=== PATIENT | male | born 1960 ===

== ENCOUNTER 2020-09-01 02:31 | Emergency (ER) | payer MEDICARE, MEDICAID, SELFPAY ==
[2020-09-01 02:45] VITALS: BP 145/79; PULSE 76; RESP 18; TEMP 37; O2SAT 96; BMI 21.8
--- NOTE | 2020-09-01 03:58 | PC.NURSE ---
PT OOB AND PACING IN ROOM. PT AWAITING FOR COVID RESULTS. PT TOLD SEVERAL TIMES TO KEEP HIS MASK ON. WILL CONTNUE TO MONITOR PT.
--- NOTE | 2020-09-01 07:54 | ED.GENADULT ---
HPI - General Adult General Chief complaint: Upper Respiratory Symptoms Stated complaint: dry thoat Time Seen by Provider: 09/01/20 03:14 Source: patient Mode of arrival: ambulatory Limitations: no limitations History of Present Illness HPI narrative: 60-year-old male who presents to the emergency department for evaluation a sore, dry throat. Patient states that he has had a dry throat for about 1 week. He states that his throat is so dry that it is difficult to swallow solids. He states it is painful to swallow and feels like he is swallowing and ?razor blades ?. He states the pain is constant and is 10/10 at its worst. He denies fever, chills, chest pain, shortness of breath, cough, nausea, vomiting, abdominal pain or diarrhea. Related Data Allergies Allergy/AdvReac Type Severity Reaction Status Date / Time Penicillins [PENICILLINS] Allergy Unknown UNKNOWN Verified 09/01/20 02:45 risperidone [From RISPERDAL] Allergy Unknown UNKNOWN Verified 09/01/20 02:45 From GEODON Allergy Unknown UNKNOWN Uncoded 06/08/20 18:18 Review of Systems Review of Systems: Yes all other systems are reviewed and are negative Neurologic: Reports Abnormal speech present [facility] Past Medical History [facility] Narrative: The patient does smoke cigarettes, he denies drug and alcohol use Medical History Arthritis Asthma Bipolar disorder Glaucoma Neuropathy Social History Social History Advance Directives: No Physical Exam Vital Signs: Vital Signs: Last Vital Signs Temp 98.6 F 09/01/20 02:45 Pulse 76 09/01/20 02:45 Resp 18 09/01/20 02:45 BP 145/79 H 09/01/20 02:45 Pulse Ox 96 09/01/20 02:45 Body Mass Index 21.8 Const: General: cooperative, no acute distress, alert and awake Orientation/consciousness: oriented to person and oriented to place Limitations: no limitations HENMT: Head: Yes normal to inspection, Yes normocephalic and Yes atraumatic Ears: external ears normal General nose exam: Normal external nose present Face and sinus: Yes normal facial exam Mouth: moist mucous membranes abnormal Throat: Yes tonsils normal and Yes other (Posterior erythema) Eyes: General: appearance normal, both eyes and all related structures Periorbital: periorbital findings normal Eyelids: Yes eyelids normal Conjunctivae: conjunctivae normal Sclerae: sclerae normal Corneas: corneas normal Pupils: Equal, round and reactive pupils present Direct Ophthalmoscopy: normal light reflex Neck: Neck: Yes normal visual inspection and Yes supple Lymphatic: no lymphadenopathy noted Chest: Chest palpation & inspection: normal inspection of the chest and normal palpation of entire chest wall Resp: Effort & Inspection: normal respiratory effort, normal respiratory pattern, no audible wheezes and no respiratory distress Auscultation: clear to auscultation bilaterally, no crackles, no rales, no rhonchi and no wheezes Cardio: Rate: regular rate Rhythm: regular rhythm Heart sounds: S1 normal heart sound present, S2 normal heart sound present and no murmurs GI: Inspection: No distended Palpation (GI): Soft to palpation, nontender, no guarding and No hepatosplenomegaly present Auscultation: normal bowel sounds : General: Yes no CVA tenderness Back/Spine/Pelvis: Back: no CVA tenderness Skin: General skin exam: no rashes or lesions noted Lesions: no lesions Rashes: no rashes Wounds: no wounds Neuro: General: oriented to person and oriented to place Cranial nerves: Yes CN's II-XII intact bilaterally and Yes Equal, round and reactive pupils present Cognition (Neuro): normal cognition Speech: Abnormal speech present Motor exam (neuro): 5/5 motor strength present throughout Extrem: General: Yes normal to inspection, Yes full ROM, Yes no pedal edema and Yes no calf tenderness Psych: Appearance: grossly normal Mental Status: mental status grossly normal Speech and movement: Clear speech present Affect: normal affect Thought process: Normal thought process present Course Course Course Narrative: 60-year-old male who presents emergency department for evaluation of dry sore throat x1 week. Physical examination did reveal posterior erythema but otherwise was unremarkable. Rapid strep test was negative. The patient's symptoms do not sound like COVID-19 and I did discuss this with him. The patient was advised to take ibuprofen and Tylenol for his pain. He is also advised to gargle with warm salt water. He was given printed instructions and was discharged home. Discharge Plan Discharge Clinical Impression: Pharyngitis Qualifiers: Pharyngitis/tonsillitis etiology: unspecified etiology Qualified Code(s): J02.9 - Acute pharyngitis, unspecified Patient Disposition: Home, Self-Care Instructions: Pharyngitis (ED) Additional Instructions: Your rapid strep test was negative. We sent a strep throat culture and that should be back in 3 days. The ER should contact you if it is positive. You most likely have a virus that is causing your sore throat. Gargle with warm salt water 3 to 4 times a day. Take ibuprofen 200 mg pills, 3 pills every 6 hours as needed for pain. Take extra-strength Tylenol 500 mg pills, 2 pills every 4-6 hours as needed for pain. Follow-up with your doctor in 2 days for re-evaluation. Please return to the emergency department if his symptoms get worse or if you develop any new symptoms that are concerning to you. Interventions: ED Discharge Assessment Last Done: 09/01/20 05:49 Discharge Date/Time: 09/01/20 05:50
== END 2020-09-01 05:50 | disposition home or self-care (01) ==
PROVIDERS: Emergency Provider Emergency Medicine Emergency Medical Services
DX: J02.9 Acute pharyngitis, unspecified (principal)
CPT/HCPCS: 87071; 87880; 99283

== ENCOUNTER 2020-09-12 01:33 | Emergency (ER) | payer MEDICARE, MEDICAID, SELFPAY ==
[2020-09-12 02:27] VITALS: BP 136/80; PULSE 68; RESP 18; TEMP 36.6; O2SAT 98; BMI 21.8
[2020-09-12] MEDS: hydrOXYzine HCL 25 MG TABLET PO (03:00)
--- NOTE | 2020-09-12 03:14 | ED.URI ---
HPI - URI/Sore Throat General Chief Complaint: General Medical Stated Complaint: ?Sore throat Time Seen by Provider: 09/12/20 02:49 Source: patient Mode of arrival: ambulatory Limitations: no limitations History of Present Illness HPI Narrative: Patient has history of anxiety ran out of his hydroxyzine complaining of sore throat feeling for couple of months get worse when he is feels anxious history for last 3 days patient very anxious on arrival MD elicited complaint: sore throat Onset (ago): month(s) Consistency: constant Severity: mild Exacerbating factors: nothing Associated symptoms: denies other symptoms Related Data Previous Rx's Medication Instructions Recorded hydroxyzine HCl 25 mg PO BID PRN #20 tab 09/12/20 Allergies Allergy/AdvReac Type Severity Reaction Status Date / Time Penicillins [PENICILLINS] Allergy Unknown UNKNOWN Verified 09/01/20 02:45 risperidone [From RISPERDAL] Allergy Unknown UNKNOWN Verified 09/01/20 02:45 From GEODON Allergy Unknown UNKNOWN Uncoded 06/08/20 18:18 Review of Systems Review of Systems: Yes all other systems are reviewed and are negative [facility] Past Medical History Medical History Arthritis Asthma Bipolar disorder Glaucoma Neuropathy Social History Social History Advance Directives: No Advance Directives Information Provided: No Physical Exam Vital Signs: Vital Signs: Last Vital Signs Temp 97.9 F 09/12/20 02:27 Pulse 68 09/12/20 02:27 Resp 18 09/12/20 02:27 BP 136/80 09/12/20 02:27 Pulse Ox 98 09/12/20 02:27 Body Mass Index 21.8 Appearance: Alert. Oriented X3. No acute distress. Very anxious Eyes: Pupils equal, round and reactive to light. ENT: Pharynx normal. Neck: Normal inspection. Neck supple. CVS: Normal heart rate and rhythm. Pulses normal. Respiratory: No respiratory distress. Breath sounds normal. Abdomen: Soft and nontender. Skin: Skin warm and dry. Normal skin color. Normal skin turgor. Extremities: No lower extremity edema. Neuro: Oriented X 3. No motor deficit. No sensory deficit. MDM - URI/Sore Throat Lab Data Attestation: I reviewed the patient's lab results. Discharge Plan Discharge Clinical Impression: Anxiety Patient Disposition: Home, Self-Care Instructions: Anxiety (ED) Prescriptions: New hydroxyzine HCl 25 mg tablet 25 mg PO BID PRN (Reason: anxiety) Qty: 20 RF: 0 Interventions: ED Discharge Assessment Last Done: 09/12/20 03:26 Discharge Date/Time: 09/12/20 03:27
== END 2020-09-12 03:27 | disposition home or self-care (01) ==
PROVIDERS: Emergency Provider Internal Medicine
DX: J02.9 Acute pharyngitis, unspecified (principal); F41.1 Generalized anxiety disorder; F43.0 Acute stress reaction; Z79.899 Other long term (current) drug therapy
CPT/HCPCS: 87071; 87880; 99283; 99284

== ENCOUNTER 2021-02-06 23:32 | Emergency (ER) | payer MEDICARE, MEDICAID, SELFPAY ==
[2021-02-06 23:38] VITALS: BP 150/89; PULSE 87; RESP 18; TEMP 37.2; O2SAT 96; BMI 22.4
--- NOTE | 2021-02-06 23:45 | ED_ITS ---
HPI - Psych General Chief Complaint: Psychiatric Symptoms Stated Complaint: crisis si Time Seen by Provider: 02/06/21 23:35 Source: patient and EMS Mode of arrival: EMS Limitations: altered mental status History of Present Illness HPI Narrative: 61-year-old male presents via EMS for delusions, auditory and visual hallucinations, medication noncompliance, and passive suicidal ideation. He is talking nonstop, states that he has schizophrenia, has stopped taking the med his medications, dumped amount in the toilet because he felt like they were causing him more problems, states have been changed smoking over the past several days which is unusual for him. Does not report any physical complaints, but states to have passive suicidal ideation because he feels like he is ?losing his mind?. MD complaint: altered mental status and hallucinations Onset (ago): unknown Duration: constant History of same: Yes Relieving factors: none Exacerbating factors: other (Medication noncompliance) Context: not taking psychiatric medications Associated psychiatric symptoms: depression, racing thoughts, auditory halluci nations, visual hallucinations and delusions Associated symptoms: confusion and insomnia Related Data Home Medications Medication Instructions Recorded Confirmed albuterol sulfate 1 puff INHALATION DAILY PRN 02/07/21 02/07/21 amlodipine 1 tab PO DAILY 02/07/21 02/07/21 cariprazine [Vraylar] 6 mg PO DAILY 02/07/21 02/07/21 clonazepam 1 tab PO TID PRN 02/07/21 02/07/21 fluticasone propion-salmeterol 1 puff INHALATION BID 02/07/21 02/07/21 [Advair Diskus] hydroxyzine HCl 50 mg PO TID PRN 02/07/21 02/07/21 lamotrigine 200 mg PO QAM 02/07/21 02/07/21 quetiapine 0.5 tab PO BEDTIME PRN 02/07/21 02/07/21 Allergies Allergy/AdvReac Type Severity Reaction Status Date / Time Penicillins [PENICILLINS] Allergy Unknown UNKNOWN Verified 09/01/20 02:45 risperidone [From RISPERDAL] Allergy Unknown UNKNOWN Verified 09/01/20 02:45 From GEODON Allergy Unknown UNKNOWN Uncoded 06/08/20 18:18 Review of Systems Review of Systems: Yes Unobtainable due to mental status PMFSH Past Medical History Attestation statement: The following information was validated with the patient. Source: old records reviewed Medical History Arthritis Asthma Bipolar disorder Glaucoma Neuropathy Social History Social History Advance Directives: No Advance Directives Information Provided: No Physical Exam Vital Signs: Vital Signs: Last Vital Signs Temp 98.9 F 02/06/21 23:38 Pulse 87 02/06/21 23:38 Resp 18 02/06/21 23:38 BP 150/89 H 02/06/21 23:38 Pulse Ox 96 02/06/21 23:38 Body Mass Index 22.4 Appearance: Alert. Oriented to self. Severe psychiatric distress. Eyes: Pupils equal, round and reactive to light. ENT: Pharynx normal. Neck: Normal inspection. Neck supple. CVS: Normal heart rate and rhythm. Pulses normal. Respiratory: No respiratory distress. Breath sounds normal. Abdomen: Soft and nontender. Skin: Skin warm and dry. Normal skin color. Normal skin turgor. Extremities: Ambulatory with cane, no lower extremity edema, moves all extremities against resistance Neuro: No motor deficit. No sensory deficit. Cranial nerves 2-12 intact Course Course Course Narrative: 61-year-old male presents via EMS for psychiatric evaluation. Patient is talking incessantly, admits not taking his medications, chain smoking, passive suicidal ideation, has a history of schizophrenia. States to have auditory and visual hallucinations as well as delusions. We will place patient on section 12, order psychiatry consult, and crisis consult and labs. U tox positive for opioids, cocaine, nitrite positive highly suspicious for UTI. Will treat with cefuroxime. 2:06 a.m. patient placed on physician observation. Psychiatry and [facility] consult pending. MDM - Psych Differential Diagnosis Differential diagnosis: Likely acute psychosis and schizoaffective disorder Medical Records Attestation: I reviewed the patient's medical records. Lab Data Attestation: I reviewed the patient's lab results. Result diagrams: 02/07/21 00:33 02/07/21 00:33 Labs: Lab Results 02/07/21 02/07/21 02/07/21 Range/Units 00:00 00:06 00:06 WBC (4.8-10.8) X10*3/uL RBC (4.60-5.80) X10*6/uL Hgb (14.0-18.0) g/dl Hct (42-52) % MCV (80-98) fL MCH (27.0-33.0) pg MCHC (31.0-36.0) g/dl RDW (11.0-16.0) % Plt Count (160-400) X10*3/uL MPV (9.4-12.4) fL Immature Gran % (Auto) (0.0-0.4) % Neut % (Auto) (45-73) % Lymph % (Auto) (20-40) % [place] % (Auto) (2-11) % Eos % (Auto) (0-4) % Baso % (Auto) (0-2) % Lymph # (Auto) (1.2-4.9) X10*3/uL [place] # (Auto) (0.1-1.2) X10*3/uL Eos # (Auto) (0.0-0.4) X10*3/uL Baso # (Auto) (0.0-0.2) X10*3/uL Abs Immat Gran (auto) (0.00-0.03) X10*3/uL Absolute Neuts (auto) (2.0-8.3) X10*3/uL Absolute Nucleated RBC (0.0-0.012) X10*3/uL Nucleated RBC % (auto) (0.0-0.2) /100WBC Sodium (135-145) mmol/L Potassium (3.3-5.1) mmol/L Chloride (96-108) mmol/L Carbon Dioxide (22-29) mmol/L Anion Gap (12-20) BUN (9-16) mg/dL Creatinine (0.5-1.4) mg/dL Estim Creat Clear Calc Estimated GFR Random Glucose (60-115) mg/dL Calcium (8.4-10.2) mg/dL Urine Color DARK YELLOW Urine Appearance HAZY Urine pH 5.5 (5.0-8.0) Ur Specific [place] >= 1.030 H (1.005-1.025) Urine Protein TRACE (NEG-TRACE) MG/DL Urine Glucose (UA) NEG (NEG) MG/DL Urine Ketones 5 (NEG) MG/DL Urine Blood NEG (NEG) Urine Nitrite POS H (NEG) Ur Leukocyte Esterase NEG (NEG) Urine RBC 1-4 (0) /HPF Urine WBC 1-4 (0-4) /HPF Ur Squamous Epith Cells 2+ /LPF Calcium Oxalate Crystal 3+ /LPF Urine Bacteria 2+ /LPF Hyaline Casts 5-9 /LPF Granular Casts 1-4 /LPF Urine Mucus 2+ /LPF Salicylates (15-30) mg/dL Urine Opiates Screen POSITIVE H (Not Detect) Acetaminophen (<30) mcg/mL Ur Barbiturates Screen Not Detected (Not Detect) Ur Phencyclidine Scrn Not Detected (Not Detect) Ur Amphetamines Screen Not Detected (Not Detect) U Benzodiazepines Scrn Not Detected (Not Detect) Urine Cocaine Screen POSITIVE H (Not Detect) U Marijuana (THC) Screen Not Detected (Not Detect) Ethyl Alcohol mg/dL COVID-19 (GAVI) Negative (Negative) COVID-19 Clin Com See Note 02/07/21 02/07/21 02/07/21 Range/Units 00:33 00:33 00:33 WBC 7.2 (4.8-10.8) X10*3/uL RBC 3.96 L (4.60-5.80) X10*6/uL Hgb 12.1 L (14.0-18.0) g/dl Hct 36.2 L (42-52) % MCV 91.4 (80-98) fL MCH 30.6 (27.0-33.0) pg MCHC 33.4 (31.0-36.0) g/dl RDW 13.9 (11.0-16.0) % Plt Count 145 L (160-400) X10*3/uL MPV 9.4 (9.4-12.4) fL Immature Gran % (Auto) 0.4 (0.0-0.4) % Neut % (Auto) 64.7 (45-73) % Lymph % (Auto) 20.9 (20-40) % [place] % (Auto) 9.2 (2-11) % Eos % (Auto) 4.2 H (0-4) % Baso % (Auto) 0.6 (0-2) % Lymph # (Auto) 1.5 (1.2-4.9) X10*3/uL [place] # (Auto) 0.7 (0.1-1.2) X10*3/uL Eos # (Auto) 0.3 (0.0-0.4) X10*3/uL Baso # (Auto) 0.0 (0.0-0.2) X10*3/uL Abs Immat Gran (auto) 0.03 (0.00-0.03) X10*3/uL Absolute Neuts (auto) 4.7 (2.0-8.3) X10*3/uL Absolute Nucleated RBC 0.000 (0.0-0.012) X10*3/uL Nucleated RBC % (auto) 0.0 (0.0-0.2) /100WBC Sodium 137 (135-145) mmol/L Potassium 4.0 (3.3-5.1) mmol/L Chloride 102 (96-108) mmol/L Carbon Dioxide 26 (22-29) mmol/L Anion Gap 13 (12-20) BUN 20 H (9-16) mg/dL Creatinine 1.45 H (0.5-1.4) mg/dL Estim Creat Clear Calc 57.6 Estimated GFR 49 Random Glucose 97 (60-115) mg/dL Calcium 8.7 (8.4-10.2) mg/dL Urine Color Urine Appearance Urine pH (5.0-8.0) Ur Specific [place] (1.005-1.025) Urine Protein (NEG-TRACE) MG/DL Urine Glucose (UA) (NEG) MG/DL Urine Ketones (NEG) MG/DL Urine Blood (NEG) Urine Nitrite (NEG) Ur Leukocyte Esterase (NEG) Urine RBC (0) /HPF Urine WBC (0-4) /HPF Ur Squamous Epith Cells /LPF Calcium Oxalate Crystal /LPF Urine Bacteria /LPF Hyaline Casts /LPF Granular Casts /LPF Urine Mucus /LPF Salicylates < 5.0 L (15-30) mg/dL Urine Opiates Screen (Not Detect) Acetaminophen 2 (<30) mcg/mL Ur Barbiturates Screen (Not Detect) Ur Phencyclidine Scrn (Not Detect) Ur Amphetamines Screen (Not Detect) U Benzodiazepines Scrn (Not Detect) Urine Cocaine Screen (Not Detect) U Marijuana (THC) Screen (Not Detect) Ethyl Alcohol < 10 mg/dL COVID-19 (GAVI) (Negative) COVID-19 Clin Com Discharge Plan Discharge Clinical Impression: Acute psychosis, Acute UTI Drug-induced psychotic disorder Qualifiers: Complication of substance-induced condition: with delusions Qualified Code(s): F19.950 - Other psychoactive substance use, unspecified with psychoactive substance-induced psychotic disorder with delusions Prescriptions: No Action quetiapine 25 mg tablet 0.5 tab PO BEDTIME PRN (Reason: insomnia) RF: 0 lamotrigine 200 mg tablet 200 mg PO QAM RF: 0 clonazepam 0.5 mg tablet 1 tab PO TID PRN (Reason: Anxiety) RF: 0 hydroxyzine HCl 50 mg tablet 50 mg PO TID PRN (Reason: insomnia) RF: 0 amlodipine 10 mg tablet 1 tab PO DAILY RF: 0 fluticasone propion-salmeterol [Advair Diskus] 500-50 mcg/dose blister with device 1 puff inhalation BID RF: 0 albuterol sulfate 90 mcg/actuation HFA aerosol inhaler 1 puff inhalation DAILY PRN (Reason: wheezing) RF: 0 Vraylar 6 mg capsule 6 mg PO DAILY RF: 0
[2021-02-06] MEDS: Nicotine 21 MG PATCH.TD24 TRANSDERMA (23:58)
--- NOTE | 2021-02-07 | ECG_ITS ---
Test Reason : MEDICAL CLEAR Blood Pressure : / mmHG Vent. Rate : 057 BPM Atrial Rate : 057 BPM P-R Int : 158 ms QRS Dur : 090 ms QT Int : 430 ms P-R-T Axes : 070 025 042 degrees QTc Int : 418 ms Sinus bradycardia Otherwise normal ECG No previous ECGs available Referred By: Ludy Wells Electronically Signed By:TWILA CARR MD
[2021-02-07 00:14] LABS: Glucose Urine UA NEG (NEG); Leukocyte Esterase Urine NEG (NEG); Nitrite Urine POS (NEG); PH 5.5 (5.0-8.0); Specific Gravity - Urine >= 1.030 (1.005-1.025); UACC Culture Trigger YES; Urine Blood NEG (NEG); Urine Ketones 5 MG/DL (NEG); Urine Protein TRACE MG/DL (NEG-TRACE)
[2021-02-07 00:28] LABS: COVID-19 Test Negative (Negative)
[2021-02-07 00:34] LABS: Amphetamine Screen Urine Not Detected (Not Detect); Barbiturates, Urine Not Detected (Not Detect); Benzodiazepines Screen Urine Not Detected (Not Detect); Cannabinoid Screen Urine Not Detected (Not Detect); Cocaine Screen Urine POSITIVE (Not Detect); Opiate Screen Urine POSITIVE (Not Detect); Phencyclidine Screen Urine Not Detected (Not Detect)
[2021-02-07] MEDS: clonazePAM 0.5 MG TABLET PO (00:36)
[2021-02-07 00:38] LABS: MANUAL DIFF FLAG NO
[2021-02-07 00:40] LABS: Basophils Percent Auto 0.6 % (0-2); Eosinophils Absolute Auto 0.3 X10*3/uL (0.0-0.4); Eosinophils Percent Auto 4.2 % (0-4); Hematocrit 36.2 % (42-52); Hemoglobin 12.1 g/dl (14.0-18.0); Imm Gran Abs Auto 0.03 X10*3/uL (0.00-0.03); Imm Gran Pct Auto 0.4 % (0.0-0.4); Lymphocytes Absolute Auto 1.5 X10*3/uL (1.2-4.9); Lymphocytes Percent Auto 20.9 % (20-40); Mean Corpuscular HGB Conc 33.4 g/dl (31.0-36.0); Mean Corpuscular Hemoglobin 30.6 pg (27.0-33.0); Mean Corpuscular Volume 91.4 fL (80-98); Mean Platelet Volume 9.4 fL (9.4-12.4); Monocytes Absolute Auto 0.7 X10*3/uL (0.1-1.2); Monocytes Percent Auto 9.2 % (2-11); Neutrophils Absolute Auto 4.7 X10*3/uL (2.0-8.3); Neutrophils Percent Auto 64.7 % (45-73); Platelet Count 145 X10*3/uL (160-400); Red Blood Count 3.96 X10*6/uL (4.60-5.80); Red Cell Distribution Width 13.9 % (11.0-16.0); White Blood Count 7.2 X10*3/uL (4.8-10.8)
[2021-02-07 00:43] LABS: Appearance Urine HAZY; Color Urine DARK YELLOW
[2021-02-07 00:46] LABS: Bacteria Urine 2+ /LPF; Calcium Oxalate Crystals Urine 3+ /LPF; Mucus Urine 2+ /LPF; Squamous Epithelial Cell Urine 2+ /LPF
[2021-02-07 01:11] LABS: Ethanol < 10 mg/dL
[2021-02-07 01:29] LABS: Anion Gap 13 (12-20); Blood Urea Nitrogen 20 mg/dL (9-16); Calcium 8.7 mg/dL (8.4-10.2); Carbon Dioxide 26 mmol/L (22-29); Chloride 102 mmol/L (96-108); Creatinine Clr Calc Pharmacy 57.6; Estimated Glomerular Filt Rate 49; Glucose Random 97 mg/dL (60-115); Salicylate < 5.0 mg/dL (15-30); Sodium 137 mmol/L (135-145)
--- NOTE | 2021-02-07 01:48 | PC.NURSE ---
[facility] notified through smart-sheet. receipt filed.
[2021-02-07 02:03] LABS: Acetaminophen LAB 2 mcg/mL (<30)
--- NOTE | 2021-02-07 07:01 | PC.NURSE ---
received report from previous RN, patient remains at rest presently with even unlabored breaths, patient appears in no distress
[2021-02-07 09:43] VITALS: BP 104/66; PULSE 51; RESP 18; TEMP 36.8; O2SAT 94
[2021-02-07] MEDS: LORazepam 1 MG TABLET 2 MG PO (09:46)
[2021-02-07 13:28] VITALS: BP 114/80; PULSE 73; RESP 18; TEMP 36.9; O2SAT 98
[2021-02-07 13:29] VITALS: BP 114/80; PULSE 73
[2021-02-07] MEDS: amLODIPine Besylate 10 MG TABLET PO (13:29)
--- NOTE | 2021-02-07 17:52 | MHC.CARE ---
CARE Team met with Pt who presented to [facility] ED via EMS. Pt presents as alert, orientated, calm and cooperative. Pt reports last evening he needed to calm down and used heroin and cocaine. Pt reports his mood as calm and feels much better than yesterday . Pt reports some difficulty sleeping, Pt is unclear if its related to the substance use. Pt reports diagnosis of bipolar disorder and schizophrenia. Pt reports cocaine use and heroin use nasally. Pt reports he uses whenever . Pt reports current providers through [facility]- t/w confirmed last appt was 01/22 and he is still active. Pt currently denies SI/HI/VH- Pt reports at baseline AH of people talking and does not identify this as distressing. Pt denies history of suicide attempt or gestures. Pt denies history of IPLOC admission. Pt reports history of CSS and detox admission. Pt reports he is currently on probation for distribution charge . Pt reports he currently receives disability. CARE Team contacted [facility] who reported Pt has had two previous crisis assessment in February/March of 2020 which results in a CSS admissions. Pt requesting to be discharged . Plan for Pt to be discharged and to follow up with current mental health providers.
== END 2021-02-07 19:38 | disposition home or self-care (01) ==
PROVIDERS: Nurse Practitioner Family; Emergency Provider Emergency Medicine
DX: F33.1 Major depressive disorder, recurrent, moderate (principal); R45.851 Suicidal ideations; R44.0 Auditory hallucinations; N39.0 Urinary tract infection, site not specified; Z20.822 Contact with and (suspected) exposure to COVID-19; Z79.899 Other long term (current) drug therapy
CPT/HCPCS: 36415; 80048; 80143; 80179; 80307; 80320; 81001; 81003; 85025; 87086; 87635; 93005; 99284

== ENCOUNTER 2021-07-10 10:57 | Emergency (ER) | payer MEDICARE, MEDICAID, SELFPAY ==
--- NOTE | ~2021-07-10 | CT_ITS ---
EXAMINATION: CT HEAD WITHOUT CONTRAST CT CERVICAL SPINE WITHOUT CONTRAST CLINICAL INFORMATION: Fall. Right-sided head injury. Facial injury. Positive loss of consciousness. Evaluate for fracture. COMPARISON: CT brain dated 05/06/2017. TECHNIQUE: Contiguous axial imaging was performed from the skull base to vertex without intravenous administration of contrast. Contiguous axial CT images of the cervical spine were obtained without contrast. Sagittal and coronal reformats were provided and reviewed. This CT examination was performed using dose optimization techniques as appropriate, variously including the following: *Automated exposure control *Adjustment of mA and/or kV according to patient size (this includes techniques or standardized protocols for targeted exams where dose is matched to indication/reason for exam; i.e. extremities or head) *Use of iterative reconstruction technique DLP: 1155 mGy-cm FINDINGS: HEAD: There is no evidence of acute intracranial hemorrhage or territorial infarction. No abnormal mass effect or midline shift is seen. [place] to white matter differentiation is well preserved. No extra-axial fluid collections are identified. The ventricles are normal in size. There is no abnormal attenuation within the brain parenchyma. Soft tissue swelling and probable laceration overlying the right frontal calvarium. No adjacent calvarial fracture. The mastoid air cells and visualized portions of the paranasal sinuses are well aerated. CERVICAL SPINE: Straightening of the normal cervical lordosis, which may be positional or related to muscular spasm. Bony fusion of the C5 and C6 vertebral bodies and posterior elements. No acute fracture or subluxation. No loss of vertebral body height. Prominent multilevel loss of intervertebral disc height with endplate degenerative changes including prominent endplate osteophytes. Prominent bilateral facet arthropathy. No lytic or blastic osseous lesion. Unremarkable prevertebral soft tissues. No abnormal soft tissue mass or fluid collection. Thyroid within normal limits. Visualized lung apices are clear. Multilevel bilateral neural foraminal stenosis. CT/CT cervical spine wo con IMPRESSION: HEAD: No acute intracranial hemorrhage or mass effect. Soft tissue swelling and probable laceration overlying the right frontal calvarium. No acute fracture. CERVICAL SPINE: No acute fracture or subluxation. Prominent multilevel degenerative disc disease and bilateral facet arthropathy with osseous fusion of C5 and C6. Multilevel bilateral neural foraminal stenosis.
[2021-07-10 11:04] VITALS: BP 154/96; BP 159/88; PULSE 68; PULSE 75; TEMP 37.2; O2SAT 98; BMI 22.1
--- NOTE | 2021-07-10 11:35 | ED.FALL ---
HPI - Fall General Chief Complaint: Fall Stated Complaint: DIZZY W/FALL AND CUTS Time Seen by Provider: 07/10/21 11:18 Source: patient Mode of arrival: EMS Limitations: no limitations History of Present Illness HPI Narrative: 61-year-old male who presents emergency department for evaluation of injuries from a fall. Patient states that he took his dose of Lamictal to close to his previous dose and this sometimes makes him lightheaded. He states that he was walking in his driveway, he became lightheaded, lost his balance and fell.The patient states he did fall forward striking his head on the driveway and landing on his knees. Patient believes that he loss consciousness for seconds. Since the fall he has had a constant, moderate, headache in the area of his injury, the headache is a dull to sharp pain which is 8/10 at its worst. He denied neck pain. He denied nausea, vomiting or weakness. He states he was able to crawl around and get some help, he then called an ambulance and was brought to the emergency department. The patient did sustain a laceration to his right forehead, he does not know when his last tetanus shot was given and he believes that it was within 5 years prior. He denied having any other prodromal symptoms such as fever, chills, nausea, vomiting, chest pain, shortness of breath, dyspnea on exertion, changes bowel movements. Related Data Home Medications Medication Instructions Recorded Confirmed albuterol sulfate 90 mcg/actuation 1 puff INHALATION DAILY PRN 02/07/21 02/07/21 aerosol inhaler amlodipine 10 mg tablet 1 tab PO DAILY 02/07/21 02/07/21 cariprazine 6 mg capsule (Vraylar) 6 mg PO DAILY 02/07/21 02/07/21 clonazepam 0.5 mg tablet 1 tab PO TID PRN 02/07/21 02/07/21 fluticasone 500 mcg-salmeterol 50 1 puff INHALATION BID 02/07/21 02/07/21 mcg/dose blistr powdr for inhalation (Advair Diskus) hydroxyzine HCl 50 mg tablet 50 mg PO TID PRN 02/07/21 02/07/21 lamotrigine 200 mg tablet 200 mg PO QAM 02/07/21 02/07/21 quetiapine 25 mg tablet 0.5 tab PO BEDTIME PRN 02/07/21 02/07/21 Previous Rx's Medication Instructions Recorded cefuroxime axetil 500 mg tablet 500 mg PO Q12H #14 tab 02/07/21 Allergies Allergy/AdvReac Type Severity Reaction Status Date / Time Penicillins [PENICILLINS] Allergy Unknown UNKNOWN Verified 09/01/20 02:45 risperidone [From RISPERDAL] Allergy Unknown UNKNOWN Verified 09/01/20 02:45 From GEODON Allergy Unknown UNKNOWN Uncoded 06/08/20 18:18 Review of Systems Review of Systems: Yes all other systems are reviewed and are negative [facility] Past Medical History [facility] Narrative: Social history: The patient denies tobacco, alcohol and drug use. He states that he lives with a roommate. Medical History Arthritis Asthma Bipolar disorder Glaucoma Neuropathy Social History Social History Alcohol intake: never Patient Tobacco Use Status: Never used Tobacco Use of substances other than those prescribed or required for medical reasons: No Advance Directives: No Advance Directives Information Provided: No Physical Exam Vital Signs: Vital Signs: Last Vital Signs Temp 98.9 F 07/10/21 11:04 Pulse 68 07/10/21 11:04 Resp 18 07/10/21 12:19 BP 159/88 H 07/10/21 11:04 Pulse Ox 98 07/10/21 11:04 Body Mass Index 22.1 Const: General: cooperative and no acute distress Orientation/consciousness: oriented to person and oriented to place Limitations: no limitations HENMT: Other: Head: Yes normal to inspection, Yes normocephalic, Yes atraumatic and Yes other ( Stellate lacerationx 3 full skin thickness( 3.0, 2.0 and 2.0 cm ),) Ears: external ears normal General nose exam: Normal external nose present Face and sinus: Yes other ( 4 x 2 cm oval skin abrasion right lateral face) Mouth: Normal oral and palatal mucosa present Throat: Yes posterior oropharynx normal Eyes: General: appearance normal, both eyes and all related structures Pupils: Equal, round and reactive pupils present Neck: Neck: Yes normal visual inspection, Yes no lymphadenopathy, Yes trachea midline and Yes supple Chest: Chest palpation & inspection: normal inspection of the chest and normal palpation of entire chest wall Resp: Effort & Inspection: normal respiratory effort and able to speak in complete sentences Auscultation: clear to auscultation bilaterally Cardio: Rate: regular rate Rhythm: regular rhythm Heart sounds: S1 normal heart sound present, S2 normal heart sound present and no murmurs GI: Inspection: Yes normal to inspection Palpation (GI): Soft to palpation, nontender and no guarding Auscultation: normal bowel sounds : General: Yes no CVA tenderness Back/Spine/Pelvis: Back: no CVA tenderness Skin: General skin exam: no rashes or lesions noted Neuro: General: oriented to person and oriented to place Cranial nerves: Yes CN's II-XII intact bilaterally and Yes Equal, round and reactive pupils present Cognition (Neuro): normal cognition Motor exam (neuro): 5/5 motor strength present throughout Extrem: General: Yes normal to inspection Psych: Appearance: grossly normal Speech and movement: Normal speech and movement present Affect: normal affect Attitude: cooperative Thought process: Normal thought process present Thought content: Normal thought content present Course Course Course Narrative: 61-year-old male who presents emergency department for evaluation of lightheadedness after taking his Lamictal which then caused him to fall in his driveway. Patient did strike his head and did have a brief loss of consciousness. Patient has a stellate laceration to his right forehead and abrasion to his right lateral face. The patient did not know when his last tetanus shot was given therefore he was given a Tdap here in the emergency department. The patient was also given Tylenol 975 mg orally for his headache. CT scan of the head and neck were Unremarkable with no fracture or bleed. Patient's lacerations were repaired with absorbable 5.0 Vicryl Rapide sutures. Patient's wounds were cleaned and dressed with bacitracin. The patient was discharged home with print and verbal instructions. the patient was told that these stitches should dissolve in 1-2 weeks and should be removed by his provider if they do not completely dissolved. He was advised to take Tylenol and ibuprofen. Procedures Procedure Narrative Procedure Narrative: Suture repair procedure note: Right forehead stellate laceration with 3 sutures will lacerations. Laceration 1. 3.0 cm in length, full skin thickness: The laceration was prep with Betadine, the wound was then anesthetized with 2% lidocaine with epinephrine x3 cc, wound was explored there are no foreign bodies found in the wound the wound was cleaned and irrigated with normal saline. 5.0 Vicryl Rapide sutures were used to repair the wound, a total of 4 sutures were used. The patient tolerated the procedure well. Laceration 2. 2.0 cm in length, full skin thickness: The laceration was prep with Betadine, the wound was then anesthetized with 2% lidocaine with epinephrine x3 cc, wound was explored there are no foreign bodies found in the wound the wound was cleaned and irrigated with normal saline. 5.0 Vicryl Rapide sutures were used to repair the wound, a total of 3 sutures were used. The patient tolerated the procedure well. Laceration 3. 2.0 cm in length, full skin thickness: The laceration was prep with Betadine, the wound was then anesthetized with 2% lidocaine with epinephrine x3 cc, wound was explored there are no foreign bodies found in the wound the wound was cleaned and irrigated with normal saline. 5.0 Vicryl Rapide sutures were used to repair the wound, a total of 4 sutures were used. The patient tolerated the procedure well. Discharge Plan Discharge Clinical Impression: Fall Qualifiers: Encounter type: initial encounter Qualified Code(s): W19.XXXA - Unspecified fall, initial encounter Closed head injury Qualifiers: Encounter type: initial encounter Qualified Code(s): S09.90XA - Unspecified injury of head, initial encounter Forehead laceration Qualifiers: Encounter type: initial encounter Qualified Code(s): S01.81XA - Laceration without foreign body of other part of head, initial encounter Abrasion of face Qualifiers: Encounter type: initial encounter Qualified Code(s): S00.81XA - Abrasion of other part of head, initial encounter Patient Disposition: Home, Self-Care Instructions: Laceration (ED), Head Injury (ED) Additional Instructions: The CT scan of your head and neck revealed no broken bones or bleeding in your brain which is reassuring. You had a starburst like laceration to your right forehead which was repaired with 5.0 Vicryl Rapide dissolvable sutures. The suture should dissolve in 7-12 days. If they do not completely dissolve then your doctor/provider should remove them in their office. Apply bacitracin twice a day to the laceration and abrasion on the side of your face. Take ibuprofen 200 mg pills, 3 pills every 6 hours as needed for pain. Take Tylenol (acetaminophen) 500 mg pills, 2 pills every 4 to 6 hours as needed for pain. Watch for signs of infection which include increased redness, increased swelling, increased pain, red streaks going away from the wound, drainage of pus. If you think the wounds are infected call your doctor or return to emergency department. Take ibuprofen 200 mg pills, 3 pills every 6 hours as needed for pain. Take Tylenol (acetaminophen) 500 mg pills, 2 pills every 4 to 6 hours as needed for pain. Follow-up with your doctor in 2 days. Please return to the emergency department if your symptoms get worse or if you develop any symptoms that are concerning to you. Prescriptions: No Action quetiapine 25 mg tablet 0.5 tab PO BEDTIME PRN (Reason: insomnia) RF: 0 lamotrigine 200 mg tablet 200 mg PO QAM RF: 0 clonazepam 0.5 mg tablet 1 tab PO TID PRN (Reason: Anxiety) RF: 0 hydroxyzine HCl 50 mg tablet 50 mg PO TID PRN (Reason: insomnia) RF: 0 amlodipine 10 mg tablet 1 tab PO DAILY RF: 0 fluticasone propion-salmeterol [Advair Diskus] 500-50 mcg/dose blister with device 1 puff inhalation BID RF: 0 albuterol sulfate 90 mcg/actuation HFA aerosol inhaler 1 puff inhalation DAILY PRN (Reason: wheezing) RF: 0 Vraylar 6 mg capsule 6 mg PO DAILY RF: 0 cefuroxime axetil 500 mg tablet 500 mg PO Q12H Qty: 14 RF: 0
[2021-07-10 12:19] VITALS: RESP 18
[2021-07-10] MEDS: Diphth,Pertus(ACell),Tet Adult 0.5 ML SYRINGE IM (12:21)
[2021-07-10] MEDS: Acetaminophen 325 MG TABLET 975 MG PO (12:22)
[2021-07-10] MEDS: Lidocaine HCl 2%/Epi 1:100,000 20 ML VIAL INFILTRATI (12:37)
[2021-07-10] MEDS: Bacitracin Oint 14 GM TUBE 1 APPL TOPICAL (12:37)
[2021-07-10 15:28] VITALS: BP 163/74; PULSE 55; RESP 16; TEMP 36.3; O2SAT 99
--- NOTE | 2021-07-10 15:58 | PC.NURSE ---
pt reports he is missing his white fur coat that is covered in blood is missing, pt did not come to the hospital with this coat. encouraged to call EMS
== END 2021-07-10 15:59 | disposition home or self-care (01) ==
PROVIDERS: Emergency Provider Emergency Medicine Emergency Medical Services
DX: S01.81XA Laceration without foreign body of other part of head, initial encounter (principal); S00.81XA Abrasion of other part of head, initial encounter; W18.30XA Fall on same level, unspecified, initial encounter; Y93.9 Activity, unspecified; Y92.008 Other place in unspecified non-institutional (private) residence as the place of occurrence of the external cause; Y99.9 Unspecified external cause status
CPT/HCPCS: 12014; 70450; 72125; 90471; 90715; 99284

== ENCOUNTER 2023-04-19 18:32 | Emergency (ER) | payer MEDICARE, MEDICAID, SELFPAY ==
--- NOTE | 2023-04-19 | ECG_ITS ---
Test Reason : OVERDOSE Blood Pressure : / mmHG Vent. Rate : 094 BPM Atrial Rate : 094 BPM P-R Int : 146 ms QRS Dur : 094 ms QT Int : 356 ms P-R-T Axes : 070 003 059 degrees QTc Int : 445 ms Normal sinus rhythm Possible Left atrial enlargement Junctional ST depression, probably normal Borderline ECG When compared with ECG of 07-FEB-2021 04:54, Vent. rate has increased BY 37 BPM Referred By: Generic ED Physician Electronically Signed By:TWILA CARR MD
[2023-04-19 18:43] VITALS: BP 111/64; BP 96/58; PULSE 102; PULSE 104; RESP 18; O2SAT 80; O2SAT 93; BMI 21.0
--- NOTE | 2023-04-19 19:03 | PC.NURSE ---
Assumed care of pt. Pt lying on stretcher, reduced respiratory rate, on 2L O2 via NC for support, no acute distress. Responding to voice, aware of situation and plan of care at this time.
[2023-04-19 19:04] VITALS: BP 108/55; PULSE 86; RESP 10; O2SAT 95
--- NOTE | 2023-04-19 19:24 | MHC.EDTECH ---
Assumed care of pt. 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
--- NOTE | 2023-04-19 19:40 | ED_ITS ---
HPI - Overdose General Chief Complaint: Overdose Stated Complaint: substance abuse Time Seen by Provider: 04/19/23 18:56 Source: patient Mode of arrival: EMS Limitations: no limitations History of Present Illness HPI Narrative: 63-year-old man who presents emergency department for evaluation of unintentional overdose of heroin. The patient states that he decrease gabapentin this morning as usual. He states that prior to coming to emergency department he used 1 and half bags of heroin intranasally. He was found unresponsive, ambulance was called and was transported to the emergency department. On presentation he is somnolent but wakes up and is able to answer questions. He has no complaints. He denies being suicidal or homicidal. Related Data Home Medications Medication Instructions Recorded Confirmed albuterol sulfate 90 mcg/actuation 1 puff inhalation DAILY PRN 02/07/21 02/07/21 aerosol inhaler wheezing amlodipine 10 mg tablet 1 tab PO DAILY 02/07/21 02/07/21 cariprazine 6 mg capsule (Vraylar) 6 mg PO DAILY 02/07/21 02/07/21 clonazepam 0.5 mg tablet 1 tab PO TID PRN Anxiety 02/07/21 02/07/21 fluticasone 500 mcg-salmeterol 50 1 puff inhalation BID 02/07/21 02/07/21 mcg/dose blistr powdr for inhalation (Advair Diskus) hydroxyzine HCl 50 mg tablet 50 mg PO TID PRN insomnia 02/07/21 02/07/21 lamotrigine 200 mg tablet 200 mg PO QAM 02/07/21 02/07/21 quetiapine 25 mg tablet 0.5 tab PO BEDTIME PRN insomnia 02/07/21 02/07/21 Previous Rx's Medication Instructions Recorded cefuroxime axetil 500 mg tablet 500 mg PO Q12H #14 tabs 02/07/21 Allergies Allergy/AdvReac Type Severity Reaction Status Date / Time Penicillins [PENICILLINS] Allergy Unknown UNKNOWN Verified 04/19/23 18:48 risperidone [From RISPERDAL] Allergy Unknown UNKNOWN Verified 04/19/23 18:48 From GEODON Allergy Unknown UNKNOWN Uncoded 06/08/20 18:18 Review of Systems Review of Systems: Yes all other systems are reviewed and are negative [facility] Past Medical History [facility] Narrative: Social history: He denies tobacco alcohol use. He does admit to using intranasal heroin prior to coming to emergency department Medical History Arthritis Asthma Bipolar disorder Glaucoma Neuropathy Social History Social History Alcohol intake: current Patient Tobacco Use Status: Never used Tobacco Smoked in Last 30 Days: No Use of substances other than those prescribed or required for medical reasons: Yes Substance Use Type: Heroin Advance Directives: No Advance Directives Information Provided: No Physical Exam Vital Signs: Vital Signs: Last Vital Signs Temp 99.0 F 04/19/23 21:34 Pulse 75 04/19/23 21:34 Resp 17 04/19/23 21:34 BP 133/77 04/19/23 21:34 Pulse Ox 96 04/19/23 21:34 O2 Del Method Room Air 04/19/23 21:34 O2 Flow Rate 2 04/19/23 19:04 Oxygen Flow Rate 2 04/19/23 18:43 BMI result Body Mass Index 21.0 Const: Other: Male patient, pleasant, cooperative, he is somnolent but does wake up and is able answer questions without any difficulty HEENT: Head: Yes normal to inspection, Yes normocephalic and Yes atraumatic Ears: external ears normal General nose exam: Normal external nose present Face and sinus: Yes normal facial exam Mouth: Normal oral and palatal mucosa present Throat: Yes posterior oropharynx normal Eyes: General: appearance normal, both eyes and all related structures Pupils: Equal, round and reactive pupils present Neck: Neck: Yes normal visual inspection, Yes no lymphadenopathy, Yes trachea midline and Yes supple Chest: Chest palpation & inspection: normal inspection of the chest and normal palpation of entire chest wall Resp: Effort & Inspection: normal respiratory effort and able to speak in complete sentences Auscultation: clear to auscultation bilaterally Cardio: Rate: regular rate Rhythm: regular rhythm Heart sounds: S1 normal heart sound present, S2 normal heart sound present and no murmurs GI: Inspection: Yes normal to inspection Palpation (GI): Soft to palpation, nontender and no guarding Auscultation: normal bowel sounds : General: Yes no CVA tenderness Back/Spine/Pelvis: Back: no CVA tenderness Skin: General skin exam: no rashes or lesions noted Neuro: Cranial nerves: Yes CN's II-XII intact bilaterally and Yes Equal, round and reactive pupils present Cognition (Neuro): normal cognition Motor exam (neuro): 5/5 motor strength present throughout Extrem: General: Yes normal to inspection Psych: Appearance: grossly normal Speech and movement: Normal speech and movement present Affect: normal affect Attitude: cooperative Thought process: Normal thought process present Thought content: Normal thought content present Medications Administered Discontinued Medications Generic Name Dose Route Start Last Admin Trade Name Shiv PRN Reason Stop Dose Admin Sodium Chloride 1,000 mls @ 999 mls/hr 04/19/23 19:42 04/19/23 20:10 Ns IV 04/19/23 20:42 Infused .Q1H1M STA Infusion Medical Decision Making Medical Decision Making [facility] Narrative: 63-year-old male who presents emergency department for evaluation of altered mental status after unintentional heroin overdose. Patient admits to taking intranasal heroin prior to coming to emergency department. The patient was not given Narcan by the paramedics and here in the emergency department he somnolent but awake, has no difficulty breathing he does answer questions. I did order laboratory evaluation to include CBC, CMP, urinalysis, urine drug screen. Patient was also ordered to get normal saline IV x1 L since his blood pressure is 108/55. Patient will be kept on a cardiac, O2 saturation end-tidal CO2 monitor in the emergency department until he is awake and alert and can be safely discharged. 2214: Patient refused blood work. Patient is now awake and alert and is requesting to go home. Patient does not want to have a SUDE exam He will be discharged home with intranasal Narcan Differential Diagnosis Differential Diagnoses: The differential diagnosis associated with the presentation includes Differential diagnosis includes was not limited to urinary tract infection, electrolyte abnormality, anemia, heroin overdose, fentanyl over, other drug overdose Admission/Observation Consideration of admission/observation: Escalation of care including admission/observation considered Independent Interpretation I performed an independent interpretation of an: EKG Interpretation: My independent interpretation patient's 12 lead EKG done at 1851 hours is as follows: Normal sinus rhythm with a rate of 94, normal TN interval, QRS duration QTC interval, no ST segment elevation, no ST segment depression, no PVCs, no PVCs, no significant T-wave abnormalities Social Determinants Opiate use disorder Discharge Plan Discharge Patient Disposition: Home, Self-Care Additional Instructions: You overdosed on opiates this evening. If you change your mind and want to get some help with your opiate addiction, please return to the emergency department and we can have you evaluated by our care team and recovery team. Your are being discharged home with intranasal Narcan. If you are going to continue to use heroin, you should make sure that there is a sober person with you that is not using drugs and that this person can administer intranasal Narcan in the event that you stop breathing. Continue taking medications as prescribed by your providers Follow-up with your doctor in 2 days. Please return to the emergency department if your symptoms get worse or if you develop any symptoms that are concerning to you. Prescriptions: No Action quetiapine 25 mg tablet 0.5 tab PO BEDTIME PRN (Reason: insomnia) lamotrigine 200 mg tablet 200 mg PO QAM clonazepam 0.5 mg tablet 1 tab PO TID PRN (Reason: Anxiety) hydroxyzine HCl 50 mg tablet 50 mg PO TID PRN (Reason: insomnia) amlodipine 10 mg tablet 1 tab PO DAILY fluticasone propion-salmeterol [Advair Diskus] 500-50 mcg/dose blister with device 1 puff inhalation BID albuterol sulfate 90 mcg/actuation HFA aerosol inhaler 1 puff inhalation DAILY PRN (Reason: wheezing) Vraylar 6 mg capsule 6 mg PO DAILY cefuroxime axetil 500 mg tablet 500 mg PO Q12H Qty: 14 0RF
[2023-04-19] MEDS: 0.9 % Sodium Chloride 1,000 ML 999 ML IV (19:45)
[2023-04-19 20:10] VITALS: BP 125/58
--- NOTE | 2023-04-19 20:10 | PC.NURSE ---
Pt with mild hypotension to 94/SBP, MD aware, fluids orderd and given with improvement.
--- OUTSIDE RECORDS SUMMARY | 2023-04-19 20:24 | XMS_ITS | Continuity of Care Document ---
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 Name Role Phone [facility]day [facility] Primary Care Physician Encounter [facility] [place] Date(s): 05/24/20 - 05/31/20 [facility] Adult [address] [place] [address]- [facility] Encounter Diagnosis Aneurysm of descending thoracic aorta(Discharge Diagnosis) - 05/24/20 Fall(Discharge Diagnosis) - 05/24/20 Attending Physician: Pushpa Alonzo MD Allergies, Adverse Reactions, Alerts Substance Reaction Severity Status nafcillin Rash Active Remeron [D]Shortness of breath Activ e Geodon Active Immunizations Given and Recorded Vaccine Date Status Refusal Reason influenza virus vaccine, inactivated 10/01/18 Davin rded pneumococcal 23-valent vaccine 1 05/13/18 Given 1Result Comment: [facility] 006-4943-01 Medications Advair Diskus 500 mcg-50 mcg inhalation powder 1, puffs, Inhalation, 2 times a day, # 60 each, Refills 5, Tot. Refills 5, Maintenance, 01/31/20 14:25:00 EDT, Inhaler, Route to Pharmacy Electronically, [id number], [facility]/pharmacy #[id number], 188, cm, 08/16/19 12:53:00 EST, Height Start Date: 01/31/20 Stop Date: 07/29/20 Status: Ordered amLODIPine 10 mg oral tablet 10 mg, 1, tablet, By Mouth, Daily, # 90 tablet, Refills 3, Tot. Refills 3, Maintenance, 08/16/19 13:22:42 EST, Route to Pharmacy Electronically, [id number], [facility]/pharmacy #[id number] Start Date: 08/16/19 Stop Date: 08/10/20 Status: Ordered clonazePAM 0.5 mg oral tablet 1 tablet = 0.5 mg, By Mouth, 3 times a day, PRN Anxiety, TAKE 1 TABLET BY MOUTH THREE TIMES A DAY NEEDED, # 30 tablet, 2 Refills, Maintenance, 03/16/20 16:23:00 EDT, Tablet, [facility]/pharmacy #[id number], 188, cm, 03/16/20 15:37:00 EDT, Height, 78.9, kg, 02/21... Start Date: 03/16/20 Stop Date: 04/15/20 Status: Ordered gabapentin 600 mg oral tablet 1 tablet, By Mouth, 3 times a day, # 42 tablet, 1 Refills, Maintenance, 03/16/20 16:23:00 EDT, [facility]/pharmacy #[id number], 188, cm, 03/16/20 15:37:00 EDT, Height, 78.9, kg, 03/15/20 8:08:00 EDT, Dry Weight Start Date: 03/16/20 Stop Date: 04/13/20 Status: Ordered hydrOXYzine hydrochloride 50 mg oral tablet 1 tablet = 50 mg, By Mouth, 2 times a day, PRN for anxiety, # 40 tablet, 0 Refills, Maintenance, 03/13/20 15:11:00 EDT, Tablet Start Date: 03/13/20 Status: Ordered ibuprofen 600 mg oral tablet 600 mg, 1, tablet, By Mouth, Every 6 hours, PRN, # 60 tablet, Refills 0, Tot. Refills 0, Acute 06/21/20 9:40:00 EDT, Pain , Moderate, 05/24/20 9:39:00 EDT, Route to Pharmacy Electronically, [facility]/pharmacy #[id number], 188, cm, 05/24/20 9:00:00 EDT, Height, 78... Start Date: 05/24/20 Stop Date: 06/21/20 Status: Ordered lamotrigine 200 mg oral tablet 2 tablet = 400 mg, By Mouth, 2 times a day Start Date: 03/13/20 Status: Ordered losartan 25 mg oral tablet 25 mg, 1, tablet, By Mouth, Daily, # 90 tablet, Refills 3, Tot. Refills 3, Soft Stop, 08/16/19 13:22:41 EST, Route to Pharmacy Electronically, [id number], [facility]/pharmacy #[id number] Start Date: 08/16/19 Stop Date: 08/10/20 Status: Ordered nicotine 2 mg oral transmucosal gum = 2 mg, Chew, Every hour, PRN Other, for 6 week(s), Nicotine Cravings, # 160 each, 1 Refills, Acute06/08/20 16:24:00 EDT, 03/16/20 16:24:00 EDT, Gum, [facility]/pharmacy #[id number], 188, cm, 03/16/20 15:37:00 EDT, Height, 78.9, kg, 03/15/20 8:08:00 EDT, Dry Weight Start Date: 03/16/20 Stop Date: 06/08/20 Status: Ordered registered pharmacy technician registered pharmacy technician, See Instructions, # 1 each, Refills 0, Tot. Refills 0, Maintenance, Dx psoas abscess, 01/27/17 14:56:45, Compound Start Date: 01/27/17 Status: Ordered SEROquel 25 mg oral tablet 12.5 mg, 0.5, tablet, By Mouth, Daily at bedtime, PRN, # 15 tablet, Refills 0, Tot. Refills 0, Maintenance, Sleep, 05/24/20 9:41:00 EDT, Route to Pharmacy Electronically, [facility]/pharmacy #[id number], 188, cm,05/24/20 9:00:00 EDT, Height, 78.9, kg, 03/15/20 8:... Start Date: 05/24/20 Stop Date: 06/23/20 Status: Ordered Singulair 10 mg oral tablet 10 mg, By Mouth, Daily at bedtime, # 30 tablet, Refills 5, Tot. Refills 5, Maintenance, 02/03/20 11:32:00 EDT, Route to Pharmacy Electronically, [facility]/pharmacy #[id number], 188, cm, 02/02/20 8:48:00 EDT, Height Start Date: 02/03/20 Stop Date: 08/01/20 Status: Ordered Ventolin HFA 108 mcg/inh inhalation aerosol with adapter 1 puffs, By Mouth, Daily, PRN for wheezing, # 18 Gm, 5 Refills, Soft Stop, 01/07/20 11:13:00 EDT, Aerosol, [id number], 188, cm, 08/16/19 12:53:00 EST, Height Start Date: 01/07/20 Stop Date: 07/05/20 Status: Ordered Vraylar 6 mg oral capsule TAKE 1 CAPSULE BY MOUTH EVERY DAY WITH A MEAL Start Date: 03/13/20 Status: Ordered Problem List Condition Effective Dates Status Health Status Inform ant Aneurysm of descending thora cic aorta(Confirmed) Active Anxiety(Confirmed) Active Asthma(Confirmed) Active Bipolar disorder(Confirmed) Active Dyslipidemia(Confirmed) Active GERD (gastroesophageal reflu x disease)(Confirmed) Active Gout(Confirmed) Active Hyperlipidemia(Confirmed) Active HTN (hypertension)(Confirmed) Active Rheumatoid arthritis(Confirmed) Active Substance abuse(Confirmed) Active HCV (hepatitis C virus)(Confirmed) Active Diagnosis Diagnosis Type Effective Dates Health Status Clinical Service Informant Aneurysm of descending thoracic aorta Discharge Diagnosis 05/24/20 Fall Discharge Diagnosis 05/24/20 Vital Signs Most recent to oldest [Reference Range]: 1 Height 188 cm (05/24/20 9:00 AM) Social History Social History Type Response Smoking Status Never smoker; Tobacc o user in household: No entered on: 01/23/17 Sex
--- OUTSIDE RECORDS SUMMARY | 2023-04-19 20:24 | XMS_ITS | Continuity of Care Document ---
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 Name Role Phone Clinton LOPEZ, [facility] Primary Care Physician [place] [facility] [place] 10/19/19 - 10/29/19 [facility] [address] [place] [address]- [facility] Attending Physician: Sherley Wilkinson Admitting Physician: AdmSherley sanders Referring Physician: AdmtrSherley Allergies, Adverse Reactions, Alerts Substance Reaction Severity Status nafcillin Rash Active Remeron [D]Shortness of breath Activ e Geodon Active Immunizations Given and Recorded Vaccine Date Status Refusal Reason influenza virus vaccine, inactivated 10/01/18 Davin rded pneumococcal 23-valent vaccine 1 05/13/18 Given 1Result Comment: [facility] [id number] Medications Advair Diskus 500 mcg-50 mcg inhalation powder 1, puffs, Inhalation, 2 times a day, # 60 each, Refills 5, Tot. Refills 5, Maintenance, 07/27/19 14:47:49 EST, Inhaler, Route to Pharmacy Electronically, [id number], [facility]/pharmacy #[id number] Start Date: 07/27/19 Stop Date: 01/23/20 Status: Ordered allopurinol 300 mg oral tablet See Instructions, TAKE 1 TABLET BY MOUTH EVERY DAY, # 30 tablet, Refills 2, Tot. Refills 2, Maintenance, 08/15/19 12:53:22 EST, Instructions Replace Required Details, Route to Pharmacy Electronically, [id number], [facility]/pharmacy... Start Date: 08/15/19 Status: Ordered amLODIPine 10 mg oral tablet 10 mg, 1, tablet, By Mouth, Daily, # 90 tablet, Refills 3, Tot. Refills 3, Maintenance, 08/16/19 13:22:42 EST, Route to Pharmacy Electronically, [id number], [facility]/pharmacy #[id number] Start Date: 08/16/19 Stop Date: 08/10/20 Status: Ordered atorvastatin 40 mg oral tablet 1 tablet = 40 mg, By Mouth, Daily, # 30 tablet, 5 Refills, Maintenance, 09/13/19 10:10:00 EST, Tablet, [facility]/pharmacy #[id number], 188, cm, 08/16/19 12:53:00 EST, Height Start Date: 09/13/19 Stop Date: 03/11/20 Status: Ordered atorvastatin 40 mg oral tablet 1 tablet = 40 mg, By Mouth, Daily, for 30 days, # 30 tablet, 5 Refills, Physician Stop 04/11/20 12:49:00 EDT, 10/14/19 12:49:00 EST, [facility]/pharmacy #[id number], 188, cm, 08/16/19 12:53:00 EST, Height Start Date: 10/14/19 Stop Date: 04/11/20 Status: Ordered clonazePAM 0.5 mg oral tablet 1 tablet = 0.5 mg, By Mouth, 4 times a day, 0 Refills, Maintenance, 01/23/17 8:38:49 Start Date: 01/23/17 Status: Ordered Flonase 50 mcg/inh nasal spray 1 sprays, Nares, Both, Daily in AM, # 16 Gm, 2 Refills, Maintenance, 08/18/19 8:49:23 EST, Francis, 1sprays Nares, Both Daily in AM,x30 days Start Date: 08/18/19 Stop Date: 11/16/19 Status: Ordered gabapentin 600 mg oral tablet 1 tablet, By Mouth, 3 times a day, # 90 tablet, 1 Refills, Maintenance, 09/13/19 10:10:00 EST, [id number], 188, cm, 08/16/19 12:53:00 EST, Height Start Date: 09/13/19 Status: Ordered LaMICtal 200 mg oral tablet 2 tablet = 400 mg, By Mouth, 2 times a day, # 60 tablet, 0 Refills, Maintenance, 02/02/17 22:57:18,Tablet Start Date: 02/02/17 Status: Ordered loratadine 10 mg oral tablet 10 mg, 1, tablet, By Mouth, Daily, # 30 tablet, Refills 0, Maintenance, 02/02/17 22:59:50 Start Date: 02/02/17 Status: Ordered losartan 25 mg oral tablet 25 mg, 1, tablet, By Mouth, Daily, # 90 tablet, Refills 3, Tot. Refills 3, Soft Stop, 08/16/19 13:22:41 EST, Route to Pharmacy Electronically, [id number], [facility]/pharmacy #[id number] Start Date: 08/16/19 Stop Date: 08/10/20 Status: Ordered naproxen 500 mg oral tablet 1 tablet, By Mouth, 2 times a day, PRN NEEDED, MODERATE PAIN., # 60 tablet, 0 Refills, Acute, 09/13/19 10:10:00 EST, [id number], 188, cm, 08/16/19 12:53:00 EST, Height Start Date: 09/13/19 Status: Ordered omeprazole 20 mg oral enteric coated capsule 1 capsule = 20 mg, By Mouth, Daily, Before a meal., # 30 capsule, 2 Refills, Soft Stop, 10/14/19 9:49:00 EST, [facility]/pharmacy #[id number], 188, cm, 08/16/19 12:53:00 EST, Height Start Date: 10/14/19 Stop Date: 01/12/20 Status: Ordered 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 Refills 0, Maintenance, Dx psoas abscess, 01/27/17 14:56:45, Compound Start Date: 01/27/17 Status: Ordered Singulair 10 mg oral tablet 10 mg, By Mouth, Daily at bedtime, # 30 tablet, Refills 5, Tot. Refills 5, Maintenance, 02/22/19 11:54:41 EDT, Route to Pharmacy Electronically, [id number], [id number] Start Date: 02/22/19 Stop Date: 08/21/19 Status: Ordered Ventolin HFA 108 mcg/inh inhalation aerosol with adapter 1 puffs, By Mouth, Daily, PRN for wheezing, # 18 Gm, 5 Refills, Soft Stop, 10/09/18 15:51:22 EST, Aerosol Start Date: 10/09/18 Stop Date: 04/07/19 Status: Ordered Problem List Condition Effective Dates Status Health Status Inform ant Aneurysm of descending thora cic aorta(Confirmed) Active Anxiety(Confirmed) Active Asthma(Confirmed) Active Bipolar disorder(Confirmed) Active Dyslipidemia(Confirmed) Active GERD (gastroesophageal reflu x disease)(Confirmed) Active Gout(Confirmed) Active Hyperlipidemia(Confirmed) Active HTN (hypertension)(Confirmed) Active Rheumatoid arthritis(Confirmed) Active Substance abuse(Confirmed) Active HCV (hepatitis C virus)(Confirmed) Active Social History Social History Type Response Smoking Status Never smoker; Tobacc o user in household: No entered on: 01/23/17 Sex
--- OUTSIDE RECORDS SUMMARY | 2023-04-19 20:24 | XMS_ITS | Continuity of Care Document ---
Author Name Unknown Organization [facility] Address [address] [place] [id number]- Care Team Providers Care Carpet Technician Name Role Phone Clinton LOPEZ, Pushpa Primary Care Physician ( [phone] Encounter [facility] Date(s): 09/10/21 - 10/10/21 [facility] [address] [place] [id number] Allergies, Adverse Reactions, Alerts Substance Reaction Severity Status nafcillin Rash Active lithium Active Remeron [D]Shortness of breath Activ e Geodon Active Immunizations Given and Recorded Vaccine Date Status Refusal Reason tetanus/diphtheria/pertussis, acel(Tdap) 07/10/21 Recorded influenza virus vaccine, inactivated 10/01/18 Davin rded pneumococcal 23-valent vaccine 1 05/13/18 Given 1Result Comment: [facility] [id number] Medications Advair Diskus 500 mcg-50 mcg inhalation powder 1, puffs, Inhalation, 2 times a day, # 3 each, Refills 3, Tot. Refills 3, Maintenance, 07/18/21 14:53:00 EDT, Inhaler, Route to Pharmacy Electronically, [id number], [facility]/pharmacy #[id number], 188, cm, 07/18/21 14:52:00 EDT, Height,... Start Date: 07/18/21 Stop Date: 07/13/22 Status: Ordered amLODIPine 10 mg oral tablet 1 tablet, By Mouth, Daily, # 90 tablet, 3 Refills, Maintenance, 07/18/21 14:53:00 EDT, [id number], 188, cm, 07/18/21 14:52:00 EDT, Height, 77.5, kg, 04/24/21 9:38:00 EDT, Dry Weight Start Date: 07/18/21 Status: Ordered clonazePAM 0.5 mg oral tablet 1 tablet = 0.5 mg, By Mouth, 3 times a day, PRN Anxiety, TAKE 1 TABLET BY MOUTH THREE TIMES A DAY NEEDED, # 30 tablet, 2 Refills, Maintenance, 03/16/20 16:23:00 EDT, Tablet, [facility]/pharmacy #[id number], 188, cm, 03/16/20 15:37:00 EDT, Height, 78.9, kg, 02/21... Start Date: 03/16/20 Stop Date: 04/15/20 Status: Ordered gabapentin 600 mg oral tablet 1 tablet, By Mouth, 3 times a day, # 42 tablet, 1 Refills, Maintenance, 03/16/20 16:23:00 EDT, [facility]/pharmacy #[id number], 188, cm, 03/16/20 15:37:00 EDT, Height, 78.9, kg, 03/15/20 8:08:00 EDT, Dry Weight Start Date: 03/16/20 Stop Date: 04/13/20 Status: Ordered hydrOXYzine hydrochloride 50 mg oral tablet 1 tablet = 50 mg, By Mouth, 2 times a day, PRN for anxiety, # 40 tablet, 0 Refills, Maintenance, 03/13/20 15:11:00 EDT, Tablet Start Date: 03/13/20 Status: Ordered lamotrigine 200 mg oral tablet 2 tablet = 400 mg, By Mouth, 2 times a day Start Date: 03/13/20 Status: Ordered losartan 25 mg oral tablet 25 mg, 1, tablet, By Mouth, Daily, # 90 tablet, Refills 3, Tot. Refills 3, Soft Stop, 07/18/21 14:53:00 EDT, Route to Pharmacy Electronically, [facility]/pharmacy #[id number], 188, cm, 07/18/21 14:52:00 EDT, Height, 77.5, kg, 04/24/21 9:38:00 EDT, Dry Weight Start Date: 07/18/21 Status: Ordered methadone 5 mg oral tablet 1 tablet = 5 mg, By Mouth, Every 8 hours, 0 Refills, Maintenance, 01/04/21 13:46:00 EDT, Partial fill upon patient request if the prescription is for a schedule II opioid drug. Start Date: 01/04/21 Status: Ordered QUEtiapine 25 mg oral tablet 0.5, tablet, By Mouth, Daily at bedtime, PRN, SLEEP., # 45 tablet, Refills 3, Tot. Refills 3, Maintenance, NEEDED, 07/18/21 14:53:00 EDT, Route to Pharmacy Electronically, [facility]/pharmacy #[id number], 188,cm, 07/18/21 14:52:00 EDT, Height, 77.5, kg, ... 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 Refills 0, Maintenance, Dx psoas abscess, 01/27/17 14:56:45, Compound Start Date: 01/27/17 Status: Ordered Singulair 10 mg oral tablet 10 mg, 1, tablet, By Mouth, Daily at bedtime, # 90 tablet, Refills 3, Tot. Refills 3, Maintenance, 07/18/21 14:53:00 EDT, Route to Pharmacy Electronically, [facility]/pharmacy #[id number], 188, cm, 07/18/21 14:52:00 EDT, Height, 77.5, kg, 04/24/21 9:38:00 EDT, Dry... Start Date: 07/18/21 Stop Date: 07/13/22 Status: Ordered traZODone 50 mg oral tablet 50 mg, 1, tablet, By Mouth, Daily at bedtime, # 30 tablet, Refills 0, Maintenance, 01/04/21 13:45:00 EDT, Partial fill upon patient request if the prescription is for a schedule II opioid drug. Start Date: 01/04/21 Status: Ordered Ventolin HFA 108 mcg/inh inhalation aerosol with adapter 1 puffs, By Mouth, Daily, PRN for wheezing, # 18 Gm, 5 Refills, Soft Stop, 01/07/20 11:13:00 EDT, Aerosol, [facility]/pharmacy #[id number], 188, cm, 08/16/19 12:53:00 EST, Height [...] History Social History Type Response Smoking Status 5-9 cigarettes (betw een 1/4 to 1/2 pack)/day in last 30 days entered on: 07/18/21 Sex
--- OUTSIDE RECORDS SUMMARY | 2023-04-19 20:24 | XMS_ITS | Continuity of Care Document ---
Author Name Unknown Organization [facility] Address [address] [place] [address]- Care Team Providers Care Assistance Specialist Name Role Phone Clinton LOPEZ, [facility] Primary Care Physician En[place] [facility] [place] Date(s): 07/19/21 - 08/18/21 [facility] [address] [place] [address]- Attending Physician: Sherley Wilkinson Admitting Physician: AdmtrSherley Referring Physician: Admtr, Ar8 Allergies, Adverse Reactions, Alerts Substance Reaction Severity Status nafcillin Rash Active lithium Active Remeron [D]Shortness of breath Activ e Geodon Active Immunizations Given and Recorded Vaccine Date Status Refusal Reason tetanus/diphtheria/pertussis, acel(Tdap) 07/10/21 Recorded influenza virus vaccine, inactivated 10/01/18 Davin rded pneumococcal 23-valent vaccine 1 05/13/18 Given 1Result Comment: [facility] [id number] Medications Advair Diskus 500 mcg-50 mcg inhalation powder 1, puffs, Inhalation, 2 times a day, # 3 each, Refills 3, Tot. Refills 3, Maintenance, 07/18/21 14:53:00 EDT, Inhaler, Route to Pharmacy Electronically, [id number], [id number], 188, cm, 07/18/21 14:52:00 EDT, Height,... [...] 2 Refills, Maintenance, 03/16/20 16:23:00 EDT, Tablet, [facility]/pharmacy #[id number], 188, cm, 03/16/20 15:37:00 EDT, Height, 78.9, kg, 02/21... Start Date: 03/16/20 Stop Date: 04/15/20 Status: Ordered gabapentin 600 mg oral tablet 1 tablet, By Mouth, 3 times a day, # 42 tablet, 1 Refills, Maintenance, 03/16/20 16:23:00 EDT, [facility]/pharmacy #[id number], 188, cm, 03/16/20 15:37:00 EDT, [...] 07/18/21 14:53:00 EDT, Route to Pharmacy Electronically, [facility]/pharmacy #[id number], 188, cm, 07/18/21 14:52:00 EDT, [...] 07/18/21 14:53:00 EDT, Route to Pharmacy Electronically, [facility]/pharmacy #[id number], 188,cm, 07/18/21 14:52:00 EDT, Height, 77.5, kg, ... 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 Refills 0, Maintenance, Dx psoas abscess, 01/27/17 14:56:45, Compound Start Date: 01/27/17 Status: Ordered Singulair 10 mg oral tablet 10 mg, 1, tablet, By Mouth, Daily at bedtime, # 90 tablet, Refills 3, Tot. Refills 3, Maintenance, 07/18/21 14:53:00 EDT, Route to Pharmacy Electronically, [facility]/pharmacy #[id number], 188, cm, 07/18/21 14:52:00 EDT, [...] Refills, Soft Stop, 01/07/20 11:13:00 EDT, Aerosol, [facility]/pharmacy #[id number], 188, cm, 08/16/19 12:53:00 EST, [...]
--- OUTSIDE RECORDS SUMMARY | 2023-04-19 20:24 | XMS_ITS | Continuity of Care Document ---
Author Name Unknown Organization [facility] Adult Address [address] [place] [address]- Care Team Providers Care Belt Changer Name Role Phone Clinton LOPEZ, [facility] Primary Care Physician [place] [facility] [place]/23 [facility] [address] [place], [place] [address] Attending Physician: Not on Staff, Attending MD Allergies, Adverse Reactions, Alerts Substance Reaction Severity Status nafcillin Rash Active lithium Active Geodon Active Remeron [D]Shortness of breath Activ e Immunizations Given and Recorded Vaccine Date Status Refusal Reason tetanus/diphtheria/pertussis, acel(Tdap) 07/10/21 Recorded influenza virus vaccine, inactivated 10/01/18 Davin rded pneumococcal 23-valent vaccine 1 05/13/18 Given 1Result Comment: [facility] [id number] Medications Advair Diskus 500 mcg-50 mcg inhalation powder 1, puffs, Inhalation, 2 times a day, # 3 each, Refills 3, Tot. Refills 3, Maintenance, 08/21/22 19:17:00 EST, Inhaler, Route to Pharmacy Electronically, [id number], [facility]/pharmacy #[id number], 188, cm, 04/18/22 9:50:00 EDT, Height, 7... Start Date: 08/21/22 Stop Date: 08/16/23 Status: Ordered amLODIPine 10 mg oral tablet 1 tablet, By Mouth, Daily, # 90 tablet, 3 Refills, Maintenance, 10/02/22 13:35:00 EST, [facility], 188, cm, 10/02/22 13:06:00 EST, Height, 77.5, kg, 04/24/21 9:38:00 EDT, Dry Weight Start Date: 10/02/22 Status: Ordered gabapentin 600 mg oral tablet 1 tablet, By Mouth, 3 times a day, # 90 tablet, 1 Refills, Maintenance, 03/20/23 11:36:00 EDT, [facility] STORE 60437, 188, cm, 12/06/22 13:35:00 EDT, Height, 77.5, kg, 04/24/21 9:38:00 EDT, Dry Weight Start Date: 03/20/23 Status: Ordered hydrOXYzine hydrochloride 50 mg oral tablet 1 tablet, By Mouth, 3 times a day, # 90 tablet, 1 Refills, Maintenance, 12/30/22 9:48:00 EDT, [facility] STORE 83699, 188, cm, 12/06/22 13:35:00 EDT, Height, 77.5, kg, 04/24/21 9:38:00 EDT, Dry Weight Start Date: 12/30/22 Status: Ordered lamotrigine 200 mg oral tablet 2 tablet = 400 mg, By Mouth, 2 times a day Start Date: 03/13/20 Status: Ordered losartan 25 mg oral tablet 1 tablet, By Mouth, Daily, # 90 tablet, 3 Refills, Maintenance, 10/02/22 13:36:00 EST, [facility]/pharmacy#0957, 188, cm, 10/02/22 13:06:00 EST, Height, 77.5, kg, 04/24/21 9:38:00 EDT, Dry Weight Start Date: 10/02/22 Status: Ordered montelukast 10 mg oral tablet 1, tablet, By Mouth, Daily at bedtime, # 90 tablet, Refills 3, Tot. Refills 3, Maintenance, 10/02/22 13:36:00 EST, Route to Pharmacy Electronically, [facility]/pharmacy #0957, 188, cm, 10/02/22 13:06:00 EST, Height, 77.5, kg, 04/24/21 9:38:00 EDT, Dry Weight Start Date: 10/02/22 Status: Ordered ProAir HFA 90 mcg/inh inhalation aerosol 1 puffs, Inhalation, Daily, PRN NEEDED FOR WHEEZE, # 18 each, 5 Refills, Maintenance, 12/27/22 11:29:00 EDT, [facility] STORE 84760, 25, INHALE 1 PUFF EVERY DAY NEEDED FOR WHEEZE, 188, cm, 12/06/22 13:35:00 EDT, Height, 77.5, kg, 04/24/21 9:38:00 EDT,... Start Date: 12/27/22 Status: Ordered QUEtiapine 25 mg oral tablet 1, tablet, By Mouth, Daily at bedtime, PRN, # 30 tablet, Refills 1, Maintenance, NEEDED FOR SLEEP, 12/30/22 9:48:00 EDT, Route to Pharmacy Electronically, [facility], 188, cm, 12/06/22 13:35:00 EDT, Height, 77.5, kg, 04/24/21 9:38:00 EDT, Dry... Start Date: 12/30/22 Status: Ordered cork wirer cork wirer, See Instructions, # 1 each, Refills 0, Tot. Refills 0, Maintenance, Dx psoas abscess, 01/27/17 14:56:45, Compound Start Date: 01/27/17 Status: Ordered traZODone 50 mg oral tablet 1, tablet, By Mouth, Daily at bedtime, # 30 tablet, Refills 2, Tot. Refills 2, Maintenance, 12/05/22 15:32:00 EDT, Route to Pharmacy Electronically, [facility]/pharmacy #[id number], 188, cm, 10/02/22 13:06:00 EST, Height, 77.5, kg, 04/24/21 9:38:00 EDT, Dry Weight Start Date: 12/05/22 Status: Ordered Vraylar 6 mg oral capsule TAKE 1 CAPSULE BY MOUTH EVERY DAY WITH A MEAL Start Date: 03/13/20 Status: Ordered Problem List Condition Confirmation Course Effective Dates Status H ealth Status Informant Aneurysm of descending thoracic aorta Confirmed Active Anxiety Confirmed Active Asthma Confirmed Active Bipolar disorder Confirmed Active HCV (hepatitis C virus) Confirmed Active Dyslipidemia Confirmed Active GERD (gastroesophageal reflux disease) Confirmed Active Gout Confirmed Active Hyperlipidemia Confirmed Active HTN (hypertension) Confirmed Active Rheumatoid arthritis Confirmed Active Substance abuse Confirmed Active Social History Social History Type Response Smoking Status 5-9 cigarettes (betw een 1/4 to 1/2 pack)/day in last 30 days entered on: 07/18/21 Sex Patient Care team information Care Team Personnel Name: Lani Madrigal RN Position: [facility] SN Heating And Cooling Technician Member Role: Primary Care Nurse Name: Wanda Reis NP Position: [facility] Associate Professional Member Role: Primary Care Nurse Address: Address: [address] [place] [place] [address]- [place] Name: Felisa Quiroga RN Position: [facility] RN Supv Member Role: Primary Care Nurse Name: Carolynn Thompson RN Position: [facility] RN Member Role: Primary Care Nurse Name: Luci Haile RN Position: [facility] RN Member Role: Primary Care Nurse Name: Pushpa Alonzo MD Position: [facility] Physician - Primary Care Member Role: PCP Address: Address: [address] [place] [address] 3rd Floor [facility] [place] [address]- [place] Name: Augustina Adams RN Position: [facility] RN Member Role: Primary Care Nurse Name: Chika Jha RN Position: [facility] SN Heating And Cooling Technician Member Role: Primary Care Nurse Name: Chapito Armstrong RN Position: [facility] RN Member Role: Primary Care Nurse Name: Carmina Rose RN Position: [facility] RN Member Role: Primary Care Nurse Name: Leanna King RN Position: [facility] RN Member Role: Primary Care Nurse Care Team Related Persons Name: NO, KT Name: RONNY ROGERS Address: [address] [place] [address] Name: KYLE COLEMAN Address: home [address] [place] [id number]
--- OUTSIDE RECORDS SUMMARY | 2023-04-19 20:24 | XMS_ITS | Continuity of Care Document ---
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 [place] Date(s): 08/22/20 - 09/21/20 [facility] Adult [address] [place] [address]- Allergies, Adverse Reactions, Alerts Substance Reaction Severity Status nafcillin Rash Active Remeron [D]Shortness of breath Activ e Geodon Active Immunizations Given and Recorded Vaccine Date Status Refusal Reason influenza virus vaccine, inactivated 10/01/18 Davin rded pneumococcal 23-valent vaccine 1 05/13/18 Given 1Result Comment: [facility] [id number] Medications Advair Diskus 500 mcg-50 mcg inhalation powder 1, puffs, Inhalation, 2 times a day, # 60 each, Refills 5, Tot. Refills 5, Maintenance, 01/31/20 14:25:00 EDT, Inhaler, Route to Pharmacy Electronically, [id number], [facility]/pharmacy #[id number], 188, cm, 08/16/19 12:53:00 EST, Height Start Date: 01/31/20 Stop Date: 07/29/20 Status: Ordered amLODIPine 10 mg oral tablet 10 mg, 1, tablet, By Mouth, Daily, # 90 tablet, Refills 1, Tot. Refills 1, Maintenance, 07/26/20 9:09:00 EST, Route to Pharmacy Electronically, [facility]/pharmacy #[id number], 188, cm, 05/24/20 9:00:00 EDT, Height, 78.9, kg, 03/15/20 8:08:00 EDT, Dry Weight Start Date: 07/26/20 Stop Date: 01/22/21 Status: Ordered clonazePAM 0.5 mg oral tablet 1 tablet = 0.5 mg, By Mouth, 3 times a day, PRN Anxiety, TAKE 1 TABLET BY MOUTH THREE TIMES A DAY NEEDED, # 30 tablet, 2 Refills, Maintenance, 03/16/20 16:23:00 EDT, Tablet, [facility]/pharmacy #[id number], 188, cm, 03/16/20 15:37:00 EDT, Height, 78.9, kg, 02/21... Start Date: 03/16/20 Stop Date: 04/15/20 Status: Ordered gabapentin 600 mg oral tablet 1 tablet, By Mouth, 3 times a day, # 42 tablet, 1 Refills, Maintenance, 03/16/20 16:23:00 EDT, [facility]/pharmacy #[id number], 188, cm, 03/16/20 15:37:00 EDT, [...] 08/16/19 13:22:41 EST, Route to Pharmacy Electronically, [id number], [facility]/pharmacy #[id number] Start Date: 08/16/19 Stop Date: 08/10/20 Status: Ordered glaze handler glaze handler, See Instructions, # 1 each, Refills 0, Tot. Refills 0, Maintenance, Dx psoas abscess, 01/27/17 14:56:45, Compound Start Date: 01/27/17 Status: Ordered SEROquel 25 mg oral tablet 12.5 mg, 0.5, tablet, By Mouth, Daily at bedtime, PRN, # 45 tablet, Refills 0, Tot. Refills 0, Maintenance, Sleep, 06/07/20 11:58:00 EDT, Route to Pharmacy Electronically, [facility]/pharmacy #[id number], 188, cm, 05/24/20 9:00:00 EDT, Height, 78.9, kg, 03/15/20 8... Start Date: 06/07/20 Stop Date: 09/05/20 Status: Ordered Singulair 10 mg oral tablet 10 mg, By Mouth, Daily at bedtime, # 30 tablet, Refills 5, Tot. Refills 5, Maintenance, 08/01/20 11:32:00 EST, Route to Pharmacy Electronically, [facility]/pharmacy #[id number], 188, cm, 05/24/20 9:00:00 EDT, Height, 78.9, kg, 03/15/20 8:08:00 EDT, Dry Weight Start Date: 08/01/20 Stop Date: 01/28/21 Status: Ordered Ventolin HFA 108 mcg/inh inhalation aerosol with adapter 1 puffs, By Mouth, Daily, PRN for wheezing, # 18 Gm, 5 Refills, Soft Stop, 01/07/20 11:13:00 EDT, Aerosol, [facility]/pharmacy #[id number], 188, cm, 08/16/19 12:53:00 EST, [...]
--- OUTSIDE RECORDS SUMMARY | 2023-04-19 20:24 | XMS_ITS | Continuity of Care Document ---
Author Name Unknown Organization 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 [address] [place] [address]- [facility] Attending Physician: Sherley Wilkinson Admitting Physician: AdmSherley sanders Referring Physician: AdmtrSherley Allergies, Adverse Reactions, Alerts Substance Reaction Severity Status nafcillin Rash Active Remeron [D]Shortness of breath Activ e Geodon Active Immunizations Given and Recorded Vaccine Date Status Refusal Reason influenza virus vaccine, inactivated 10/01/18 Davin rded pneumococcal 23-valent vaccine 1 05/13/18 Given 1Result Comment: [facility][NOTE 3] [id number] Medications Advair Diskus 500 mcg-50 mcg inhalation powder 1, puffs, Inhalation, 2 times a day, # 60 each, Refills 5, Tot. Refills 5, Maintenance, 01/31/20 14:25:00 EDT, Inhaler, Route to Pharmacy Electronically, [id number], [facility]/pharmacy #[id number], 188, cm, 08/16/19 12:53:00 EST, Height Start Date: 01/31/20 Stop Date: 07/29/20 Status: Ordered amLODIPine 10 mg oral tablet 10 mg, 1, tablet, By Mouth, Daily, # 90 tablet, Refills 3, Tot. Refills 3, Maintenance, 08/16/19 13:22:42 EST, Route to Pharmacy Electronically, [id number], [facility]/pharmacy #[id number] Start Date: 08/16/19 Stop Date: 08/10/20 Status: Ordered clonazePAM 0.5 mg oral tablet 1 tablet = 0.5 mg, By Mouth, 3 times a day, PRN Anxiety, TAKE 1 TABLET BY MOUTH THREE TIMES A DAY NEEDED, # 30 tablet, 2 Refills, Maintenance, 03/16/20 16:23:00 EDT, Tablet, [facility]/pharmacy #[id number], 188, cm, 03/16/20 15:37:00 EDT, Height, 78.9, kg, 02/21... Start Date: 03/16/20 Stop Date: 04/15/20 Status: Ordered gabapentin 600 mg oral tablet 1 tablet, By Mouth, 3 times a day, # 42 tablet, 1 Refills, Maintenance, 03/16/20 16:23:00 EDT, [facility]/pharmacy #[id number], 188, cm, 03/16/20 15:37:00 EDT, [...] 1, tablet, By Mouth, Every 6 hours, # 40 tablet, Refills 0, Maintenance, 03/13/20 15:10:00 EDT Start Date: 03/13/20 Status: Ordered lamotrigine 200 mg oral tablet TAKE 1 TABLET EVERY MORNING AND 1&1/2 TABLETS EVERY EVENING Start Date: 03/13/20 Status: Ordered losartan 25 mg oral tablet 25 mg, 1, tablet, By Mouth, Daily, # 90 tablet, Refills 3, Tot. Refills 3, Soft Stop, 08/16/19 13:22:41 EST, Route to Pharmacy Electronically, [id number], [facility]/pharmacy #[id number] Start Date: 08/16/19 Stop Date: 08/10/20 Status: Ordered melatonin 3 mg oral tablet 1 tablet = 3 mg, By Mouth, Daily at bedtime, PRN Sleep, for 30 days, # 30 tablet, 0 Refills, Acute 04/15/20 16:24:00 EDT, 03/16/20 16:24:00 EDT, Tablet, [facility]/pharmacy #0993, 188, cm, 03/16/20 15:37:00EDT, Height, 78.9, kg, 03/15/20 8:08:00 EDT, Dry We... Start Date: 03/16/20 Stop Date: 04/15/20 Status: Ordered nicotine 2 mg oral transmucosal gum = 2 mg, Chew, Every hour, PRN Other, for 6 week(s), Nicotine Cravings, # 160 each, 1 Refills, Acute06/08/20 16:24:00 EDT, 03/16/20 16:24:00 EDT, Gum, [facility]/pharmacy #0993, 188, cm, 03/16/20 15:37:00 EDT, Height, 78.9, kg, 03/15/20 8:08:00 EDT, Dry Weight Start Date: 03/16/20 Stop Date: 06/08/20 Status: Ordered spring tier spring tier, See Instructions, # 1 each, Refills 0, Tot. Refills 0, Maintenance, Dx psoas abscess, 01/27/17 14:56:45, Compound Start Date: 01/27/17 Status: Ordered SEROquel 25 mg oral tablet 12.5 mg, 0.5, tablet, By Mouth, Daily at bedtime, PRN, # 15 tablet, Refills 0, Tot. Refills 0, Maintenance, Sleep, 03/16/20 16:24:00 EDT, Route to Pharmacy Electronically, [facility]/pharmacy #[id number], 188, cm, 03/16/20 15:37:00 EDT, Height, 78.9, kg, 03/15/20... Start Date: 03/16/20 Stop Date: 04/15/20 Status: Ordered Singulair 10 mg oral tablet 10 mg, By Mouth, Daily at bedtime, # 30 tablet, Refills 5, Tot. Refills 5, Maintenance, 02/03/20 11:32:00 EDT, Route to Pharmacy Electronically, [facility]/pharmacy #[id number], 188, cm, 02/02/20 8:48:00 EDT, Height Start Date: 02/03/20 Stop Date: 08/01/20 Status: Ordered Ventolin HFA 108 mcg/inh inhalation aerosol with adapter 1 puffs, By Mouth, Daily, PRN for wheezing, # 18 Gm, 5 Refills, Soft Stop, 01/07/20 11:13:00 EDT, Aerosol, [facility]/pharmacy #[id number], 188, cm, 08/16/19 12:53:00 EST, [...]
--- OUTSIDE RECORDS SUMMARY | 2023-04-19 20:24 | XMS_ITS | Continuity of Care Document ---
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 Role Phone Clinton LOPEZ, [facility] Primary Care Physician Encounter [facility] [place] Date(s): 05/11/21 - 06/10/21 [facility] [address] [place] [address]- Allergies, Adverse Reactions, Alerts Substance Reaction Severity Status nafcillin Rash Active lithium Active Remeron [D]Shortness of breath Activ e Geodon Active Immunizations Given and Recorded Vaccine Date Status Refusal Reason influenza virus vaccine, inactivated 10/01/18 Davin rded pneumococcal 23-valent vaccine 1 05/13/18 Given 1Result Comment: [facility] [id number] Medications Advair Diskus 500 mcg-50 mcg inhalation powder 1, puffs, Inhalation, 2 times a day, # 60 each, Refills 5, Tot. Refills 5, Maintenance, 09/25/20 9:05:00 EST, Inhaler, Route to Pharmacy Electronically, [id number], [facility]/pharmacy #[id number], 188, cm, 05/24/20 9:00:00 EDT, Height, 7... Start Date: 09/25/20 Stop Date: 03/24/21 Status: Ordered amLODIPine 10 mg oral tablet 1 tablet, By Mouth, Daily, # 90 tablet, 1 Refills, Maintenance, 01/18/21 12:28:00 EDT, [facility], 188, cm, 01/04/21 13:38:00 EDT, Height, 78.9, kg, 03/15/20 8:08:00 EDT, Dry Weight Start Date: 01/18/21 Status: Ordered clonazePAM 0.5 mg oral tablet 1 tablet = 0.5 mg, By Mouth, 3 times a day, PRN Anxiety, TAKE 1 TABLET BY MOUTH THREE TIMES A DAY NEEDED, # 30 tablet, 2 Refills, Maintenance, 03/16/20 16:23:00 EDT, Tablet, [facility]/pharmacy #0993, 188, cm, 03/16/20 15:37:00 EDT, Height, 78.9, kg, 02/21... Start Date: 03/16/20 Stop Date: 04/15/20 Status: Ordered gabapentin 600 mg oral tablet 1 tablet, By Mouth, 3 times a day, # 42 tablet, 1 Refills, Maintenance, 03/16/20 16:23:00 EDT, [facility]/pharmacy #0993, 188, cm, 03/16/20 15:37:00 EDT, Height, [...] 08/16/19 13:22:41 EST, Route to Pharmacy Electronically, [id number], [facility]/pharmacy #0993 Start Date: 08/16/19 Stop Date: 08/10/20 Status: Ordered methadone 5 mg oral tablet 1 tablet = 5 mg, By Mouth, Every 8 hours, 0 Refills, Maintenance, 01/04/21 13:46:00 EDT, Partial fill upon patient request if the prescription is for a schedule II opioid drug. Start Date: 01/04/21 Status: Ordered QUEtiapine 25 mg oral tablet 0.5, tablet, By Mouth, Daily at bedtime, PRN, SLEEP., # 45 tablet, Refills 0, Tot. Refills 0, Maintenance, NEEDED, 12/28/20 8:38:00 EDT, Route to Pharmacy Electronically, [facility] ST[facility], 188, cm,10/20/20 12:25:00 EST, Height, 78.9, kg, 03/15/20 8... Start Date: 12/28/20 Status: Ordered jacquard card lacer jacquard card lacer, See Instructions, # 1 each, Refills 0, Tot. Refills 0, Maintenance, Dx psoas abscess, 01/27/17 14:56:45, Compound Start Date: 01/27/17 Status: Ordered Singulair 10 mg oral tablet 10 mg, By Mouth, Daily at bedtime, # 30 tablet, Refills 5, Tot. Refills 5, Maintenance, 08/01/20 11:32:00 EST, Route to Pharmacy Electronically, [facility]/pharmacy #0993, 188, cm, 05/24/20 9:00:00 EDT, Height, 78.9, kg, 03/15/20 8:08:00 EDT, Dry Weight Start Date: 08/01/20 Stop Date: 01/28/21 Status: Ordered traZODone 50 mg oral tablet [...] Refills, Soft Stop, 01/07/20 11:13:00 EDT, Aerosol, [facility]/pharmacy #[id number], 188, cm, 08/16/19 12:53:00 EST, Height [...]
--- OUTSIDE RECORDS SUMMARY | 2023-04-19 20:24 | XMS_ITS | Continuity of Care Document ---
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 Role Phone Clinton LOPEZ, [facility] Primary Care Physician Encounter [facility] [place] Date(s): 08/24/20 - 09/23/20 [facility] [address] [place] [address]- Attending Physician: Sherley Wilkinson Admitting Physician: Admtr, ArNehal Referring Physician: Admtr, Ar8 Allergies, Adverse Reactions, Alerts Substance Reaction Severity Status nafcillin Rash Active Remeron [D]Shortness of breath Activ e Geodon Active Immunizations Given and Recorded Vaccine Date Status Refusal Reason influenza virus vaccine, inactivated 10/01/18 Davin rded pneumococcal 23-valent vaccine 1 05/13/18 Given 1Result Comment: [facility] [id number] Medications Advair Diskus 500 mcg-50 mcg inhalation powder 1, puffs, Inhalation, 2 times a day, # 60 each, Refills 5, Tot. Refills 5, Maintenance, 01/31/20 14:25:00 EDT, Inhaler, Route to Pharmacy Electronically, [id number], [facility]/pharmacy #0993, 188, cm, 08/16/19 12:53:00 EST, Height Start Date: 01/31/20 Stop Date: 07/29/20 Status: Ordered amLODIPine 10 mg oral tablet 10 mg, 1, tablet, By Mouth, Daily, # 90 tablet, Refills 1, Tot. Refills 1, Maintenance, 07/26/20 9:09:00 EST, Route to Pharmacy Electronically, [facility]/pharmacy #0993, 188, cm, 05/24/20 9:00:00 EDT, Height, 78.9, kg, 03/15/20 8:08:00 EDT, Dry Weight Start Date: 07/26/20 Stop Date: 01/22/21 Status: Ordered clonazePAM 0.5 mg oral tablet 1 tablet = 0.5 mg, By Mouth, 3 times a day, PRN Anxiety, TAKE 1 TABLET BY MOUTH THREE TIMES A DAY NEEDED, # 30 tablet, 2 Refills, Maintenance, 03/16/20 16:23:00 EDT, Tablet, [facility]/pharmacy #0993, 188, cm, 03/16/20 15:37:00 EDT, Height, 78.9, kg, 02/21... 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 Refills 0, Maintenance, Dx psoas abscess, 01/27/17 14:56:45, Compound Start Date: 01/27/17 Status: Ordered SEROquel 25 mg oral tablet 12.5 mg, 0.5, tablet, By Mouth, Daily at bedtime, PRN, # 45 tablet, Refills 0, Tot. Refills 0, Maintenance, Sleep, 06/07/20 11:58:00 EDT, Route to Pharmacy Electronically, [facility]/pharmacy #0993, 188, cm, 05/24/20 9:00:00 EDT, Height, 78.9, kg, 03/15/20 8... Start Date: 06/07/20 Stop Date: 09/05/20 Status: Ordered Singulair 10 mg oral tablet 10 mg, By Mouth, Daily at bedtime, # 30 tablet, Refills 5, Tot. Refills 5, Maintenance, 08/01/20 11:32:00 EST, Route to Pharmacy Electronically, [facility]/pharmacy #0993, 188, cm, 05/24/20 9:00:00 EDT, Height, 78.9, kg, 03/15/20 8:08:00 EDT, Dry Weight Start Date: 08/01/20 Stop Date: 01/28/21 Status: Ordered Ventolin HFA 108 mcg/inh inhalation aerosol with adapter 1 puffs, By Mouth, Daily, PRN for wheezing, # 18 Gm, 5 Refills, Soft Stop, 01/07/20 11:13:00 EDT, Aerosol, [facility]/pharmacy #0707, 188, cm, 08/16/19 12:53:00 EST, [...]
--- OUTSIDE RECORDS SUMMARY | 2023-04-19 20:24 | XMS_ITS | Continuity of Care Document ---
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 [place] [id number] Medications Advair Diskus 500 mcg-50 mcg inhalation powder 1, puffs, Inhalation, 2 times a day, # 60 each, Refills 5, Tot. Refills 5, Maintenance, 09/25/20 9:05:00 EST, Inhaler, Route to Pharmacy Electronically, [id number], [facility]/pharmacy #[id number], 188, cm, 05/24/20 9:00:00 EDT, Height, 7... Start Date: 09/25/20 Stop Date: 03/24/21 Status: Ordered amLODIPine 10 mg oral tablet 10 mg, 1, tablet, By Mouth, Daily, # 90 tablet, Refills 1, Tot. Refills 1, Maintenance, 07/26/20 9:09:00 EST, Route to Pharmacy Electronically, [facility]/pharmacy #[id number], 188, cm, 05/24/20 9:00:00 EDT, Height, 78.9, kg, 03/15/20 8:08:00 EDT, Dry Weight Start Date: 07/26/20 Stop Date: 01/22/21 Status: Ordered clonazePAM 0.5 mg oral tablet 1 tablet = 0.5 mg, By Mouth, 3 times a day, PRN Anxiety, TAKE 1 TABLET BY MOUTH THREE TIMES A DAY NEEDED, # 30 tablet, 2 Refills, Maintenance, 03/16/20 16:23:00 EDT, Tablet, [facility]/pharmacy #0993, 188, cm, 03/16/20 15:37:00 EDT, Height, 78.9, kg, 02/21... 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 Refills 0, Maintenance, Dx psoas abscess, 01/27/17 14:56:45, Compound Start Date: 01/27/17 Status: Ordered SEROquel 25 mg oral tablet 12.5 mg, 0.5, tablet, By Mouth, Daily at bedtime, PRN, # 45 tablet, Refills 0, Tot. Refills 0, Maintenance, Sleep, 10/02/20 15:34:00 EST, Route to Pharmacy Electronically, [facility]/pharmacy #[id number], 188, cm, 05/24/20 9:00:00 EDT, Height, 78.9, kg, 03/15/20 8... Start Date: 10/02/20 Stop Date: 12/31/20 Status: Ordered Singulair 10 mg oral tablet 10 mg, By Mouth, Daily at bedtime, # 30 tablet, Refills 5, Tot. Refills 5, Maintenance, 08/01/20 11:32:00 EST, Route to Pharmacy Electronically, [facility]/pharmacy #[id number], 188, cm, 05/24/20 9:00:00 EDT, Height, 78.9, kg, 03/15/20 8:08:00 EDT, Dry Weight Start Date: 08/01/20 Stop Date: 01/28/21 Status: Ordered Ventolin HFA 108 mcg/inh inhalation aerosol with adapter 1 puffs, By Mouth, Daily, PRN for wheezing, # 18 Gm, 5 Refills, Soft Stop, 01/07/20 11:13:00 EDT, Aerosol, [facility]/pharmacy #0707, 188, cm, 08/16/19 12:53:00 EST, [...]
--- OUTSIDE RECORDS SUMMARY | 2023-04-19 20:24 | XMS_ITS | Continuity of Care Document ---
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 Phone Clinton LOPEZ, [facility] Primary Care Physician Encounter [facility] [place] ACCT R [id number] Date(s): 02/12/21 - 05/03/21 [facility] Adult [address] [place] [address]- Attending Physician: Pushpa Alonzo MD Allergies, Adverse Reactions, Alerts Substance Reaction Severity Status nafcillin Rash Active lithium Active Remeron [D]Shortness of breath Activ e Geodon Active Immunizations Given and Recorded Vaccine Date Status Refusal Reason influenza virus vaccine, inactivated 10/01/18 Davin rded pneumococcal 23-valent vaccine 1 05/13/18 Given 1Result Comment: [facility] [id number] Medications Advair Diskus 500 mcg-50 mcg inhalation powder 1, puffs, Inhalation, 2 times a day, # 60 each, Refills 5, Tot. Refills 5, Maintenance, 09/25/20 9:05:00 EST, Inhaler, Route to Pharmacy Electronically, [id number], [facility]/pharmacy #[id number], 188, cm, 05/24/20 9:00:00 EDT, Height, 7... Start Date: 09/25/20 Stop Date: 03/24/21 Status: Ordered amLODIPine 10 mg oral tablet 1 tablet, By Mouth, Daily, # 90 tablet, 1 Refills, Maintenance, 01/18/21 12:28:00 EDT, [facility], 188, cm, 01/04/21 13:38:00 EDT, Height, 78.9, kg, 03/15/20 8:08:00 EDT, Dry Weight Start Date: 01/18/21 Status: Ordered clonazePAM 0.5 mg oral tablet 1 tablet = 0.5 mg, By Mouth, 3 times a day, PRN Anxiety, TAKE 1 TABLET BY MOUTH THREE TIMES A DAY NEEDED, # 30 tablet, 2 Refills, Maintenance, 03/16/20 16:23:00 EDT, Tablet, [facility]/pharmacy #0993, 188, cm, 03/16/20 15:37:00 EDT, Height, 78.9, kg, 02/21... Start Date: 03/16/20 Stop Date: 04/15/20 Status: Ordered gabapentin 600 mg oral tablet 1 tablet, By Mouth, 3 times a day, # 42 tablet, 1 Refills, Maintenance, 03/16/20 16:23:00 EDT, [facility]/pharmacy #[id number], 188, cm, 03/16/20 15:37:00 EDT, Height, [...] 08/16/19 13:22:41 EST, Route to Pharmacy Electronically, [id number], [facility]/pharmacy #[id number] Start Date: 08/16/19 Stop Date: 08/10/20 [...] 12/28/20 8:38:00 EDT, Route to Pharmacy Electronically, [facility] STORE 34595, 188, cm,10/20/20 12:25:00 EST, Height, 78.9, kg, 03/15/20 8... 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 Refills 0, Maintenance, Dx psoas abscess, 01/27/17 14:56:45, Compound Start Date: 01/27/17 Status: Ordered Singulair 10 mg oral tablet 10 mg, By Mouth, Daily at bedtime, # 30 tablet, Refills 5, Tot. Refills 5, Maintenance, 08/01/20 11:32:00 EST, Route to Pharmacy Electronically, [facility]/pharmacy #[id number], 188, cm, 05/24/20 9:00:00 EDT, Height, [...] Refills, Soft Stop, 01/07/20 11:13:00 EDT, Aerosol, [facility]/pharmacy #0707, 188, cm, 08/16/19 12:53:00 EST, Height [...]
--- OUTSIDE RECORDS SUMMARY | 2023-04-19 20:24 | XMS_ITS | Continuity of Care Document ---
Author Name Unknown Organization [facility] ter Address [address] [place] [id number]- Care Team Providers Care Maintenance Engineer Oil Field Name Role Phone Pushpa Alonzo MD Primary Care Physician [place] [facility] [place] - 05/11/[address] [address]- Encounter Diagnosis Arm pain(Final) - 05/11/21 Discharge Disposition: A-D/C Home Attending Physician: Natali Holt MD Admitting Physician: Natali Holt MD Referring Physician: Not on Staff, Referring MD Allergies, Adverse Reactions, Alerts Substance Reaction [...] 9:05:00 EST, Inhaler, Route to Pharmacy Electronically, [id number], [facility]/pharmacy #[id number], 188, cm, 05/24/20 9:00:00 EDT, Height, 7... Start Date: 09/25/20 Stop Date: 03/24/21 Status: Ordered amLODIPine 10 mg oral tablet 1 tablet, By Mouth, Daily, # 90 tablet, 1 Refills, Maintenance, 01/18/21 12:28:00 EDT, [facility], 188, cm, 01/04/21 13:38:00 EDT, Height, 78.9, kg, 03/15/20 8:08:00 EDT, Dry Weight Start Date: 01/18/21 Status: Ordered clonazePAM 0.5 mg oral tablet 1 tablet = 0.5 mg, By Mouth, 3 times a day, PRN Anxiety, TAKE 1 TABLET BY MOUTH THREE TIMES A DAY NEEDED, # 30 tablet, 2 Refills, Maintenance, 03/16/20 16:23:00 EDT, Tablet, [facility]/pharmacy #[id number], 188, cm, 03/16/20 15:37:00 EDT, Height, 78.9, kg, 02/21... Start Date: 03/16/20 Stop Date: 04/15/20 Status: Ordered gabapentin 600 mg oral tablet 1 tablet, By Mouth, 3 times a day, # 42 tablet, 1 Refills, Maintenance, 03/16/20 16:23:00 EDT, [facility]/pharmacy #[id number], 188, cm, 03/16/20 15:37:00 EDT, [...] 08/16/19 13:22:41 EST, Route to Pharmacy Electronically, [id number], [facility]/pharmacy #[id number] Start Date: 08/16/19 Stop Date: [...] 12/28/20 8:38:00 EDT, Route to Pharmacy Electronically, [facility] STORE 97229, 188, cm,10/20/20 12:25:00 EST, Height, 78.9, kg, 03/15/20 8... Start Date: 12/28/20 Status: Ordered metal bonding assembler metal bonding assembler, See Instructions, # 1 each, Refills 0, Tot. Refills 0, Maintenance, Dx psoas abscess, 01/27/17 14:56:45, Compound Start Date: 01/27/17 Status: Ordered Singulair 10 mg oral tablet 10 mg, By Mouth, Daily at bedtime, # 30 tablet, Refills 5, Tot. Refills 5, Maintenance, 08/01/20 11:32:00 EST, Route to Pharmacy Electronically, [facility]/pharmacy #[id number], 188, cm, 05/24/20 9:00:00 EDT, [...] Soft Stop, 01/07/20 11:13:00 EDT, Aerosol, [facility]/pharmacy #[id number], 188, cm, 08/16/19 12:53:00 EST, [...] abuse(Confirmed) Active HCV (hepatitis C virus)(Confirmed) Active Results Radiology Reports * Exam Date Time Procedure Performing Provider Status 05/11/21 9:06 AM Chest 2 Views Frontal and Lat Nicolette garvin Anais; Auth (Verified) Notes: (Chest 2 Views Frontal and Lat) Reason For Exam: Chest Pain;Other: RESULT: Chest 2 Views Frontal and Lat Chest 2 Views Frontal and Lat INDICATION: Right-sided axillary chest pain. COMPARISON: Chest CT 05/13/2020. FINDINGS: LINES AND TUBES: There is a questionable linear patchy opacity left lower lung field centrally on the AP view, identified likely in the lingula on the lateral view. LUNGS AND PLEURA: Clear lungs. Normal pulmonary vascularity. No pleural effusion. No pneumothorax. HEART, MEDIASTINUM AND ORION: Heart is normal in size. Normal upper mediastinal and hilar contour. BONES AND SOFT TISSUES: No acute abnormality. IMPRESSION: Somewhat nodular focal patchy opacity left lung base. Evolving infiltrate versus artifact or neoplasm. Clinical correlation. Follow-up to clearing recommended. WSN: [id number] Ordering Physician: Jh Saenz Dictated By: Luis Arredondo MD Dictated Date/Time: 05/11/21 9:36 am Reviewed By: Luis Arredondo MD Signed By: Luis Arredondo MD Signed Date/Time: 05/11/21 9:36 am Transcribed By: JAMES Transcribed Date/Time: 05/11/21 9:29 am Vital Signs Most recent to oldest [Reference Range]: 1 2 3 Oxygen Saturation [94-100 %] 99 % (05/11/21 4:12 PM) 96 % (05/11/21 8:29 AM) 96 % (05/11/21 8:15 AM) Pulse Rate [55-90 bpm] 65 bpm (05/11/21 4:12 PM) 92 bpm *H* (05/11/21 8:29 AM) 95 bpm *H* (05/11/21 8:15 AM) Blood Pressure [90-138/55-84 mm Hg] 138/88mm Hg (05/11/21 4:12 PM) 93/73mm Hg (05/11/21 8:33 AM) Respiratory Rate [16-30 br/min] 18 br/min (05/11/21 4:12 PM) 18 br/min (05/11/21 12:50 PM) 16 br/min (05/11/21 8:29 AM) Temperature [96.8-100.4 DegF] 97.6 DegF (05/11/21 4:12 PM) 98.6 DegF (05/11/21 8:29 AM) Mode of Delivery (Oxygen) Room air (05/11/21 4:12 PM) Room air (05/11/21 8:29 AM) Room air (05/11/21 8:15 AM) Blood pressure sites Arm, left (05/11/21 8:33 AM) Temperature Route Oral (05/11/21 4:12 PM) Oral (05/11/21 8:29 AM) Social History Social History Type Response Smoking Status Never smoker; Tobacc o user in household: No entered on: 01/23/17 Sex
--- OUTSIDE RECORDS SUMMARY | 2023-04-19 20:24 | XMS_ITS | Continuity of Care Document ---
Author Name Unknown Organization [facility] Adult Address [address] [place] [address]- Care Team Providers Care Customer Support Agent Name Role Phone Clinton LOPEZ, [facility] Primary Care Physician En[place] [facility] [place] Date(s): 08/16/19 - 11/18/19 [facility] Adult [address] [place] [address]- [facility] Attending Physician: Clinton LOPEZ, [facility] Allergies, Adverse Reactions, Alerts Substance Reaction Severity Status nafcillin Rash Active Remeron [D]Shortness of breath Activ e Geodon Active Immunizations Given and Recorded Vaccine Date Status Refusal Reason influenza virus vaccine, inactivated 10/01/18 Davin rded pneumococcal 23-valent vaccine 1 05/13/18 Given 1Result Comment: [facility] [place] [id number] Medications Advair Diskus 500 mcg-50 mcg inhalation powder 1, puffs, Inhalation, 2 times a day, # 60 each, Refills 5, Tot. Refills 5, Maintenance, 07/27/19 14:47:49 EST, Inhaler, Route to Pharmacy Electronically, [id number], [facility]/pharmacy #[id number] Start Date: 07/27/19 Stop Date: 01/23/20 Status: Ordered allopurinol 300 mg oral tablet See Instructions, TAKE 1 TABLET BY MOUTH EVERY DAY, # 30 tablet, Refills 2, Tot. Refills 2, Maintenance, 08/15/19 12:53:22 EST, Instructions Replace Required Details, Route to Pharmacy Electronically, [id number], [facility] Start Date: 08/15/19 Status: Ordered amLODIPine 10 mg oral tablet 10 mg, 1, tablet, By Mouth, Daily, # 90 tablet, Refills 3, Tot. Refills 3, Maintenance, 08/16/19 13:22:42 EST, Route to Pharmacy Electronically, [id number], [facility]/pharmacy #[id number] Start Date: 08/16/19 Stop Date: 08/10/20 Status: Ordered atorvastatin 40 mg oral tablet 1 tablet = 40 mg, By Mouth, Daily, # 30 tablet, 5 Refills, Maintenance, 09/13/19 10:10:00 EST, Tablet, [facility]/pharmacy #[id number], 188, cm, 08/16/19 12:53:00 EST, Height Start Date: 09/13/19 Stop Date: 03/11/20 Status: Ordered atorvastatin 40 mg oral tablet 1 tablet = 40 mg, By Mouth, Daily, for 30 days, # 30 tablet, 5 Refills, Physician Stop 04/11/20 12:49:00 EDT, 10/14/19 12:49:00 EST, [facility]/pharmacy #[id number], 188, cm, 08/16/19 12:53:00 EST, Height Start Date: 10/14/19 Stop Date: 04/11/20 Status: Ordered clonazePAM 0.5 mg oral tablet 1 tablet = 0.5 mg, By Mouth, 4 times a day, 0 Refills, Maintenance, 01/23/17 8:38:49 Start Date: 01/23/17 Status: Ordered Flonase 50 mcg/inh nasal spray 1 sprays, Nares, Both, Daily in AM, # 16 Gm, 2 Refills, Maintenance, 08/18/19 8:49:23 EST, [place], 1sprays Nares, Both Daily in AM,x30 days Start Date: 08/18/19 Stop Date: 11/16/19 Status: Ordered gabapentin 600 mg oral tablet 1 tablet, By Mouth, 3 times a day, # 90 tablet, 1 Refills, Maintenance, 11/08/19 11:29:00 EST, [id number], 188, cm, 08/16/19 12:53:00 EST, Height Start Date: 11/08/19 Status: Ordered LaMICtal 200 mg oral tablet [...] 08/16/19 13:22:41 EST, Route to Pharmacy Electronically, [id number], [facility]/pharmacy #[id number] Start Date: 08/16/19 Stop Date: 08/10/20 Status: Ordered naproxen 500 mg oral tablet 1 tablet, By Mouth, 2 times a day, PRN NEEDED, MODERATE PAIN., # 60 tablet, 0 Refills, Acute, 09/13/19 10:10:00 EST, [facility] STORE 68950, 188, cm, 08/16/19 12:53:00 EST, Height Start Date: 09/13/19 Status: Ordered omeprazole 20 mg oral enteric coated capsule 1 capsule = 20 mg, By Mouth, Daily, Before a meal., # 30 capsule, 2 Refills, Soft Stop, 10/14/19 9:49:00 EST, [facility]/pharmacy #0707, 188, cm, 08/16/19 12:53:00 EST, Height Start Date: 10/14/19 Stop Date: 01/12/20 Status: Ordered software support representative software support representative, See Instructions, # 1 each, Refills 0, Tot. Refills 0, Maintenance, Dx psoas abscess, 01/27/17 14:56:45, Compound Start Date: 01/27/17 Status: Ordered Singulair 10 mg oral tablet 10 mg, By Mouth, Daily at bedtime, # 30 tablet, Refills 5, Tot. Refills 5, Maintenance, 02/22/19 11:54:41 EDT, Route to Pharmacy Electronically, [id number], [id number] Start Date: 02/22/19 Stop Date: [...]
--- OUTSIDE RECORDS SUMMARY | 2023-04-19 20:24 | XMS_ITS | Continuity of Care Document ---
Author Name Unknown Organization [facility] Adult Address [address] [place] [address]- Care Team Providers Care Jig Maker Name Role Phone Clinton LOPEZ, [facility] Primary Care Physician [place] [facility] [place]19[place]23 [place] 04/18/23 [facility] Adult [address] [place] [address]- Allergies, Adverse Reactions, Alerts Substance Reaction Severity Status nafcillin Rash Active lithium Active Remeron [D]Shortness of breath Activ e Geodon Active Immunizations Given and Recorded Vaccine Date Status Refusal Reason tetanus/diphtheria/pertussis, acel(Tdap) 07/10/21 Recorded influenza virus vaccine, inactivated 10/01/18 Davin rded pneumococcal 23-valent vaccine 1 05/13/18 Given 1Result Comment: [facility] [id number] Medications Advair Diskus 500 mcg-50 mcg inhalation powder 1, puffs, Inhalation, 2 times a day, # 3 each, Refills 3, Tot. Refills 3, Maintenance, 08/21/22 19:17:00 EST, Inhaler, Route to Pharmacy Electronically, [id number], [facility]/pharmacy #0957, 188, cm, 04/18/22 9:50:00 EDT, Height, 7... Start Date: 08/21/22 Stop Date: 08/16/23 Status: Ordered amLODIPine 10 mg oral tablet 1 tablet, By Mouth, Daily, # 90 tablet, 3 Refills, Maintenance, 10/02/22 13:35:00 EST, [facility], 188, cm, 10/02/22 13:06:00 EST, Height, 77.5, kg, 08/03/21 9:38:00 EDT, Dry Weight Start Date: 10/02/22 Status: Ordered gabapentin 600 mg oral tablet 1 tablet, By Mouth, 3 times a day, # 90 tablet, 1 Refills, Maintenance, 03/20/23 11:36:00 EDT, [facility], 188, cm, 12/06/22 13:35:00 EDT, Height, 77.5, kg, 04/24/21 9:38:00 EDT, Dry Weight Start Date: 03/20/23 Status: Ordered hydrOXYzine hydrochloride 50 mg oral tablet 1 tablet, By Mouth, 3 times a day, # 90 tablet, 1 Refills, Maintenance, 12/30/22 9:48:00 EDT, [facility], 188, cm, 12/06/22 13:35:00 EDT, Height, 77.5, kg, 04/24/21 9:38:00 EDT, Dry Weight Start Date: 12/30/22 Status: Ordered lamotrigine 200 mg oral tablet 2 tablet = 400 mg, By Mouth, 2 times a day Start Date: 03/13/20 Status: Ordered losartan 25 mg oral tablet 1 tablet, By Mouth, Daily, # 90 tablet, 3 Refills, Maintenance, 10/02/22 13:36:00 EST, [facility]/pharmacy#0957, 188, cm, 10/02/22 13:06:00 EST, Height, 77.5, kg, 04/24/21 9:38:00 EDT, Dry Weight Start Date: 10/02/22 Status: Ordered montelukast 10 mg oral tablet 1, tablet, By Mouth, Daily at bedtime, # 90 tablet, Refills 3, Tot. Refills 3, Maintenance, 10/02/22 13:36:00 EST, Route to Pharmacy Electronically, [facility]/pharmacy #0957, 188, cm, 10/02/22 13:06:00 EST, Height, 77.5, kg, 04/24/21 9:38:00 EDT, Dry Weight Start Date: 10/02/22 Status: Ordered ProAir HFA 90 mcg/inh inhalation aerosol 1 puffs, Inhalation, Daily, PRN NEEDED FOR WHEEZE, # 18 each, 5 Refills, Maintenance, 12/27/22 11:29:00 EDT, [facility] STORE 71777, 25, INHALE 1 PUFF EVERY DAY NEEDED FOR WHEEZE, 188, cm, 12/06/22 13:35:00 EDT, Height, 77.5, kg, 04/24/21 9:38:00 EDT,... Start Date: 12/27/22 Status: Ordered QUEtiapine 25 mg oral tablet 1, tablet, By Mouth, Daily at bedtime, PRN, # 30 tablet, Refills 1, Maintenance, NEEDED FOR SLEEP, 12/30/22 9:48:00 EDT, Route to Pharmacy Electronically, [facility] STORE 77701, 188, cm, 12/06/22 13:35:00 EDT, Height, 77.5, kg, 04/24/21 9:38:00 EDT, Dry... Start Date: 12/30/22 Status: Ordered print traffic manager print traffic manager, See Instructions, # 1 each, Refills 0, Tot. Refills 0, Maintenance, Dx psoas abscess, 01/27/17 14:56:45, Compound Start Date: 01/27/17 Status: Ordered traZODone 50 mg oral tablet 1, tablet, By Mouth, Daily at bedtime, # 30 tablet, Refills 2, Tot. Refills 2, Maintenance, 12/05/22 15:32:00 EDT, Route to Pharmacy Electronically, [facility]/pharmacy #0957, 188, cm, 10/02/22 13:06:00 EST, Height, [...] pack)/day in last 30 days entered on: 10/27/21 Sex Patient Care team information Care Team Personnel Name: Lani Madrigal RN Position: [facility] SN Juice Packaging Machines Setter Member Role: Primary Care Nurse Name: Wanda Reis NP Position: [facility] Associate Professional Member Role: Primary Care Nurse Address: Address: [address] [facility] [place] [address]- [place] Name: Felisa Quiroga RN Position: [facility] RN Supv Member Role: Primary Care Nurse Name: Carolynn Thompson RN Position: S RN Member Role: Primary Care Nurse Name: Luci Haile RN Position: S RN Member Role: Primary Care Nurse Name: Pushpa Alonzo MD Position: [facility] Physician - Primary Care Member Role: PCP Address: Address: [address] [place] [id number]- [place] Name: Augustina Adams RN Position: [facility] RN Member Role: Primary Care Nurse Name: Chika Jha RN Position: [facility] SN Juice Packaging Machines Setter Member Role: Primary Care Nurse Name: Chapito Armstrong RN Position: [facility] RN Member Role: Primary Care Nurse Name: Carmina Rose RN Position: [facility] RN Member Role: Primary Care Nurse Name: Leanna King RN Position: [facility] RN Member Role: Primary Care Nurse Care Team Related Persons Name: NO, KT Name: RONNY ROGERS Address: [address] [place] [address] Name: KYLE COLEMAN Address: home [address] [place] [address]
--- OUTSIDE RECORDS SUMMARY | 2023-04-19 20:24 | XMS_ITS | Continuity of Care Document ---
Author Name Unknown Organization [facility] Adult Address [address] [place] [address]- Care Team Providers Care Sample Puller Name Role Phone Clinton LOPEZ, [facility] Primary Care Physician [place] [facility] [place] [facility] [place](s[place] 07/12/22 - 09/05/22 [facility] Adult [address] [place] [address]- Attending Physician: Rose Yarbrough NP Allergies, Adverse Reactions, Alerts Substance Reaction Severity Status nafcillin Rash Active lithium Active Remeron [D]Shortness of breath Activ e Geodon Active Immunizations Given and Recorded Vaccine Date Status Refusal Reason tetanus/diphtheria/pertussis, acel(Tdap) 07/10/21 Recorded influenza virus vaccine, inactivated 10/01/18 Davin rded pneumococcal 23-valent vaccine 1 05/13/18 Given 1Result Comment: [facility] [id number] Medications Advair Diskus 500 mcg-50 mcg inhalation powder 1, puffs, Inhalation, 2 times a day, # 3 each, Refills 3, Tot. Refills 3, Maintenance, 08/21/22 19:17:00 EST, Inhaler, Route to Pharmacy Electronically, [id number], [id number], 188, cm, 04/18/22 9:50:00 EDT, Height, 7... Start Date: 08/21/22 Stop Date: 08/16/23 Status: Ordered amLODIPine 10 mg oral tablet 1 tablet, By Mouth, Daily, # 90 tablet, 3 Refills, Maintenance, 08/27/22 14:15:00 EST, [facility], 188, cm, 04/18/22 9:50:00 EDT, Height, 77.5, kg, 04/24/21 9:38:00 EDT, Dry Weight Start Date: 08/27/22 Status: Ordered clonazePAM 0.5 mg oral tablet 1 tablet = 0.5 mg, By Mouth, 3 times a day, PRN Anxiety, TAKE 1 TABLET BY MOUTH THREE TIMES A DAY NEEDED, # 30 tablet, 2 Refills, Maintenance, 03/16/20 16:23:00 EDT, Tablet, [id number], 188, cm, 03/16/20 15:37:00 EDT, Height, 78.9, kg, 02/21... Start Date: 03/16/20 Stop Date: 04/15/20 Status: Ordered gabapentin 600 mg oral tablet 1 tablet, By Mouth, 3 times a day, # 42 tablet, 1 Refills, Maintenance, 03/16/20 16:23:00 EDT, [id number], 188, cm, 03/16/20 15:37:00 EDT, Height, 78.9, kg, 03/15/20 8:08:00 EDT, Dry Weight Start Date: 03/16/20 Stop Date: 04/13/20 Status: Ordered hydrOXYzine hydrochloride 50 mg oral tablet 1 tablet = 50 mg, By Mouth, 3 times a day, # 90 tablet, 1 Refills, Maintenance, 08/21/22 19:16:00 EST, [facility][id number], Partial fill upon patient request if the prescription is for a schedule II opioid drug., 188, cm, 04/18/22 9:50:00 EDT, Height,... Start Date: 08/21/22 Stop Date: 10/20/22 Status: Ordered lamotrigine 200 mg oral tablet 2 tablet = 400 mg, By Mouth, 2 times a day Start Date: 03/13/20 Status: Ordered losartan 25 mg oral tablet 1 tablet, By Mouth, Daily, # 90 tablet, 3 Refills, Maintenance, 07/10/22 19:38:00 EDT, [facility], 188, cm, 04/18/22 9:50:00 EDT, Height, 77.5, kg, 04/24/21 9:38:00 EDT, Dry Weight Start Date: 07/10/22 Status: Ordered methadone 5 mg oral tablet 1 tablet = 5 mg, By Mouth, Every 8 hours, 0 Refills, Maintenance, 01/04/21 13:46:00 EDT, Partial fill upon patient request if the prescription is for a schedule II opioid drug. Start Date: 01/04/21 Status: Ordered montelukast 10 mg oral tablet 1, tablet, By Mouth, Daily at bedtime, # 90 tablet, Refills 3, Maintenance, 08/27/22 14:15:00 EST, Route to Pharmacy Electronically, [id number], 188, cm, 04/18/22 9:50:00 EDT, Height, 77.5, kg, 04/24/21 9:38:00 EDT, Dry Weight Start Date: 08/27/22 Status: Ordered QUEtiapine 25 mg oral tablet 0.5, tablet, By Mouth, Daily at bedtime, PRN, # 45 tablet, Refills 1, Maintenance, NEEDED FOR SLEEP, 07/11/22 9:16:00 EDT, Route to Pharmacy Electronically, [id number], 188, cm, 04/18/22 9:50:00 EDT, Height, 77.5, kg, 04/24/21 9:38:00 EDT, Dry... Start Date: 07/11/22 Status: Ordered dried fruit washer dried fruit washer, See Instructions, # 1 each, Refills 0, [...] Daily, PRN for wheezing, # 18 Gm, 2 Refills, Soft Stop, 08/21/22 19:15:00 EST, Aerosol, [id number], 188, cm, 04/18/22 9:50:00 EDT, Height, 77.5, kg, 04/24/21 9:38:00 EDT, Dry Weight Start Date: 08/21/22 Stop Date: 11/19/22 Status: Ordered Vraylar 6 mg oral capsule TAKE 1 CAPSULE BY MOUTH EVERY DAY WITH A MEAL Start Date: 03/13/20 Status: Ordered Problem List Condition Confirmation Course Effective Dates Status H ealth Status Informant Aneurysm of descending thoracic aorta Confirmed Active Anxiety Confirmed Active Asthma Confirmed Active Bipolar disorder Confirmed Active Dyslipidemia Confirmed Active GERD (gastroesophageal reflux disease) Confirmed Active Gout Confirmed Active Hyperlipidemia Confirmed Active HTN (hypertension) Confirmed Active Rheumatoid arthritis Confirmed Active Substance abuse Confirmed Active HCV (hepatitis C virus) Confirmed Active Social History Social History Type Response Smoking Status 5-9 cigarettes (betw een 1/4 to 1/2 pack)/day in last 30 days entered on: 07/18/21 Sex Patient Care team information Care Team Personnel Name: Lani Madrigal RN Position: [facility] SN Camera Assembler Member Role: Primary Care Nurse Name: Wanda Reis NP Position: [facility] Associate Professional Member Role: Primary Care Nurse Address: Address: [address] [place] [address]- Name: Felisa Quiroga RN Position: [facility] RN Supv Member Role: Primary Care Nurse Name: Carolynn Thomposn RN Position: S RN Member Role: Primary Care Nurse Name: Rena Albert RN Position: [facility] RN Member Role: Primary Care Nurse Name: Luci Haile RN Position: S RN Member Role: Primary Care Nurse Name: Pushpa Alonzo MD Position: [facility] Primary Care Physician Member Role: PCP Address: Address: [address] [place] [address]- Name: Augustina Adams RN Position: S RN Member Role: Primary Care Nurse Name: Chika Jha RN Position: S SN Camera Assembler Member Role: Primary Care Nurse Name: Chapito Armstrong RN Position: S RN Member Role: Primary Care Nurse Name: Carmina Rose RN Position: S RN Member Role: Primary Care Nurse Name: Carmen Pace RN Position: S RN Member Role: Primary Care Nurse Name: Leanna King RN Position: S RN Member Role: Primary Care Nurse Care Team Related Persons Name: NO, ONE Name: RONNY ROGERS Address: [address] [place] [address] Name: KYLE COLEMAN Address: home [address] [place] [address]
--- OUTSIDE RECORDS SUMMARY | 2023-04-19 20:24 | XMS_ITS | Continuity of Care Document ---
Author Name Unknown Organization [facility] Adult Address [address] [place] [address]- Care Team Providers Care Faculty Instructor Name Role Phone Clinton LOPEZ, [facility] Primary Care Physician Encounter [facility] [place] Date(s): 02/08/22 - 03/10/[address] [facility] Adult [address] [place] [address]- Allergies, Adverse Reactions, Alerts Substance Reaction Severity Status nafcillin Rash Active lithium Active Remeron [D]Shortness of breath Activ e Geodon Active Immunizations Given and Recorded Vaccine Date Status Refusal Reason tetanus/diphtheria/pertussis, acel(Tdap) 07/10/21 Recorded influenza virus vaccine, inactivated 10/01/18 Davin rded pneumococcal 23-valent vaccine 1 05/13/18 Given 1Result Comment: [facility] [id number] Medications Advair Diskus 500 mcg-50 mcg inhalation powder 1, puffs, Inhalation, 2 times a day, # 3 each, Refills 3, Tot. Refills 3, Maintenance, 07/18/21 14:53:00 EDT, Inhaler, Route to Pharmacy Electronically, [id number], [facility]/pharmacy #[id number], 188, cm, 07/18/21 14:52:00 EDT, [...] 2 Refills, Maintenance, 03/16/20 16:23:00 EDT, Tablet, [facility]/pharmacy #[id number], 188, cm, 03/16/20 15:37:00 EDT, Height, 78.9, kg, 02/21... Start Date: 03/16/20 Stop Date: 04/15/20 Status: Ordered gabapentin 600 mg oral tablet 1 tablet, By Mouth, 3 times a day, # 42 tablet, 1 Refills, Maintenance, 03/16/20 16:23:00 EDT, [facility]/pharmacy #[id number], 188, cm, 03/16/20 15:37:00 EDT, Height, 78.9, kg, 03/15/20 8:08:00 EDT, Dry Weight Start Date: 03/16/20 Stop Date: 04/13/20 Status: Ordered hydrOXYzine hydrochloride 50 mg oral tablet 1 tablet = 50 mg, By Mouth, 3 times a day, PRN for anxiety, for 21 days, # 60 tablet, 1 Refills, Acute 03/22/22 15:34:00 EDT, 02/08/22 15:34:00 EDT, Tablet, [facility]/pharmacy #[id number], Partial fill upon patient request if the prescription is for a schedule II... Start Date: 02/08/22 Stop Date: 03/22/22 Status: Ordered lamotrigine 200 mg oral tablet 2 tablet = 400 mg, By Mouth, 2 times a day Start Date: 03/13/20 Status: Ordered losartan 25 mg oral tablet 25 mg, 1, tablet, By Mouth, Daily, # 90 tablet, Refills 3, Tot. Refills 3, Soft Stop, 07/18/21 14:53:00 EDT, Route to Pharmacy Electronically, [facility]/pharmacy #[id number], 188, cm, 07/18/21 14:52:00 EDT, [...] 07/18/21 14:53:00 EDT, Route to Pharmacy Electronically, [facility]/pharmacy #[id number], 188,cm, 07/18/21 14:52:00 EDT, Height, 77.5, kg, ... Start Date: 07/18/21 Status: Ordered inventory clerk inventory clerk, See Instructions, # 1 each, Refills 0, Tot. Refills 0, Maintenance, Dx psoas abscess, 01/27/17 14:56:45, Compound Start Date: 01/27/17 Status: Ordered Singulair 10 mg oral tablet 10 mg, 1, tablet, By Mouth, Daily at bedtime, # 90 tablet, Refills 3, Tot. Refills 3, Maintenance, 07/18/21 14:53:00 EDT, Route to Pharmacy Electronically, [facility]/pharmacy #[id number], 188, cm, 07/18/21 14:52:00 EDT, [...] # 18 Gm, 2 Refills, Soft Stop, 01/17/22 15:12:00 EDT, Aerosol, [facility]/pharmacy #[id number], 188, cm, 07/18/21 14:52:00 EDT, Height, 77.5, kg, 04/24/21 9:38:00 EDT, Dry Weight Start Date: 01/17/22 Stop Date: 04/17/22 Status: Ordered Vraylar 6 mg oral capsule [...]
--- OUTSIDE RECORDS SUMMARY | 2023-04-19 20:25 | XMS_ITS | Continuity of Care Document ---
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 Start Date: 09/25/20 Stop Date: 03/24/21 Status: Ordered amLODIPine 10 mg oral tablet 1 tablet, By Mouth, Daily, # 90 tablet, 1 Refills, Maintenance, 01/18/21 12:28:00 EDT, [id number], 188, cm, 01/04/21 13:38:00 EDT, Height, 78.9, [...] 08/16/19 13:22:41 EST, Route to Pharmacy Electronically, [id number], [facility]/pharmacy #[id number] Start Date: 08/16/19 [...] 12/28/20 8:38:00 EDT, Route to Pharmacy Electronically, [facility], 188, cm,10/20/20 12:25:00 EST, Height, 78.9, kg, 03/15/20 8... Start Date: 12/28/20 Status: Ordered produce specialist produce specialist, See Instructions, # 1 each, Refills 0, Tot. Refills 0, Maintenance, Dx psoas abscess, 01/27/17 14:56:45, Compound Start Date: 01/27/17 Status: Ordered Singulair 10 mg oral tablet 10 mg, By Mouth, Daily at bedtime, # 30 tablet, Refills 5, Tot. Refills 5, Maintenance, 08/01/20 11:32:00 EST, Route to Pharmacy Electronically, [facility]/pharmacy #[id number], 188, cm, 05/24/20 9:00:00 EDT, [...]
--- OUTSIDE RECORDS SUMMARY | 2023-04-19 20:25 | XMS_ITS | Continuity of Care Document ---
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 Role Phone Clinton LOPEZ, [facility] Primary Care Physician ( [phone] Encounter [facility] [place] Date(s): 06/28/21 - 09/05/[address] [address] Attending Physician: Jimbo Rodriguez MD Admitting Physician: Jimbo Rodriguez MD Referring Physician: Jimbo Rodriguez MD Allergies, Adverse Reactions, Alerts Substance Reaction Severity Status nafcillin Rash Active lithium Active Remeron [D]Shortness of breath Activ e Geodon Active Immunizations Given and Recorded Vaccine Date Status Refusal Reason tetanus/diphtheria/pertussis, acel(Tdap) 07/10/21 Recorded influenza virus vaccine, inactivated 10/01/18 Davin rded pneumococcal 23-valent vaccine 1 05/13/18 Given 1Result Comment: [facility] [id number] Medications Advair Diskus 500 mcg-50 mcg inhalation powder 1, puffs, Inhalation, 2 times a day, # 3 each, Refills 3, Tot. Refills 3, Maintenance, 07/18/21 14:53:00 EDT, Inhaler, Route to Pharmacy Electronically, [id number], [id number], 188, cm, 07/18/21 14:52:00 EDT, [...] 2 Refills, Maintenance, 03/16/20 16:23:00 EDT, Tablet, [facility]/pharmacy #0993, 188, cm, 03/16/20 15:37:00 EDT, Height, 78.9, kg, 02/21... Start Date: 03/16/20 Stop Date: 04/15/20 Status: Ordered gabapentin 600 mg oral tablet 1 tablet, By Mouth, 3 times a day, # 42 tablet, 1 Refills, Maintenance, 03/16/20 16:23:00 EDT, [facility]/pharmacy #0993, 188, cm, 03/16/20 15:37:00 EDT, Height, [...] 07/18/21 14:53:00 EDT, Route to Pharmacy Electronically, [facility]/pharmacy #0957, 188, cm, 07/18/21 14:52:00 EDT, Height, 77.5, kg, 04/24/21 9:38:00 EDT, Dry Weight Start Date: 07/18/21 Status: Ordered methadone 5 mg oral tablet 1 tablet = 5 mg, By Mouth, Every 8 hours, 0 Refills, Maintenance, 04/15/21 13:46:00 EDT, Partial fill upon patient request if the prescription is for a schedule II opioid drug. Start Date: 01/04/21 Status: Ordered QUEtiapine 25 mg oral tablet 0.5, tablet, By Mouth, Daily at bedtime, PRN, SLEEP., # 45 tablet, Refills 3, Tot. Refills 3, Maintenance, NEEDED, 07/18/21 14:53:00 EDT, Route to Pharmacy Electronically, [facility]/pharmacy #0957, 188,cm, 07/18/21 14:52:00 EDT, Height, 77.5, kg, ... Start Date: 07/18/21 Status: Ordered relationship counselor relationship counselor, See Instructions, # 1 each, Refills 0, Tot. Refills 0, Maintenance, Dx psoas abscess, 01/27/17 14:56:45, Compound Start Date: 01/27/17 Status: Ordered Singulair 10 mg oral tablet 10 mg, 1, tablet, By Mouth, Daily at bedtime, # 90 tablet, Refills 3, Tot. Refills 3, Maintenance, 07/18/21 14:53:00 EDT, Route to Pharmacy Electronically, [facility]/pharmacy #0957, 188, cm, 07/18/21 14:52:00 EDT, Height, [...] Refills, Soft Stop, 01/07/20 11:13:00 EDT, Aerosol, [facility]/pharmacy #0707, 188, cm, 08/16/19 12:53:00 EST, Height [...]
--- OUTSIDE RECORDS SUMMARY | 2023-04-19 20:25 | XMS_ITS | Continuity of Care Document ---
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 Role Phone Pushpa Alonzo MD Primary Care Physician Encounter [facility] [place] ACCT R [id number] Date(s): 10/02/22 - 10/09/22 [facility] Adult [address] [place] [address]- Encounter Diagnosis Aneurysm of descending thoracic aorta(Discharge Diagnosis) - 10/02/22 Anxiety(Discharge Diagnosis) - 10/02/22 Asthma(Discharge Diagnosis) - 10/02/22 Bipolar disorder(Discharge Diagnosis) - 10/02/22 Rheumatoid arthritis(Discharge Diagnosis) - 10/02/22 Substance abuse(Discharge Diagnosis) - 10/02/22 HTN (hypertension)(Discharge Diagnosis) - 10/02/22 HCV (hepatitis C virus)(Discharge Diagnosis) - 10/02/22 GERD (gastroesophageal reflux disease)(Discharge Diagnosis) - 10/02/22 Annual physical exam(Discharge Diagnosis) - 10/02/22 Attending Physician: Pushpa Alonzo MD Allergies, Adverse [...] 19:17:00 EST, Inhaler, Route to Pharmacy Electronically, [id number], [facility]/pharmacy #[id number], 188, cm, 04/18/22 9:50:00 EDT, Height, 7... Start Date: 08/21/22 Stop Date: 08/16/23 Status: Ordered amLODIPine 10 mg oral tablet 1 tablet, By Mouth, Daily, # 90 tablet, 3 Refills, Maintenance, 10/02/22 13:35:00 EST, [facility]/pharmacy#0957, 188, cm, 10/02/22 13:06:00 EST, Height, 77.5, kg, 04/24/21 9:38:00 EDT, Dry Weight Start Date: 10/02/22 Status: Ordered clonazePAM 0.5 mg oral tablet 1 tablet = 0.5 mg, By Mouth, 3 times a day, PRN Anxiety, TAKE 1 TABLET BY MOUTH THREE TIMES A DAY NEEDED, # 30 tablet, 2 Refills, Maintenance, 03/16/20 16:23:00 EDT, Tablet, [facility]/pharmacy #[id number], 188, cm, 03/16/20 15:37:00 EDT, Height, 78.9, kg, 2... Start Date: 03/16/20 Stop Date: 04/15/20 Status: Ordered gabapentin 600 mg oral tablet 1 tablet = 600 mg, By Mouth, 3 times a day, # 90 tablet, 1 Refills, Maintenance, 10/02/22 13:35:00 EST, [facility]/pharmacy #0957, 188, cm, 10/02/22 13:06:00 EST, Height, 77.5, kg, 04/24/21 9:38:00 EDT, DryWeight Start Date: 10/02/22 Stop Date: 12/01/22 Status: Ordered hydrOXYzine hydrochloride 50 mg oral tablet 1 tablet, By Mouth, 3 times a day, # 90 tablet, 1 Refills, Maintenance, 10/02/22 13:36:00 EST, [facility]/pharmacy #0957, 188, cm, 10/02/22 13:06:00 EST, Height, 77.5, kg, 04/24/21 9:38:00 EDT, Dry Weight Start Date: 10/02/22 Status: Ordered lamotrigine 200 mg oral tablet 2 tablet = 400 mg, By Mouth, 2 times a day Start Date: 03/13/20 Status: Ordered losartan 25 mg oral tablet 1 tablet, By Mouth, Daily, # 90 tablet, 3 Refills, Maintenance, 10/02/22 13:36:00 EST, [facility]/pharmacy#0957, 188, cm, 10/02/22 13:06:00 EST, Height, 77.5, kg, 04/24/21 9:38:00 EDT, Dry Weight Start Date: 10/02/22 Status: Ordered methadone 5 mg oral tablet [...] 10/02/22 13:36:00 EST, Route to Pharmacy Electronically, [facility]/pharmacy #0957, 188, cm, 10/02/22 13:06:00 EST, Height, 77.5, kg, 04/24/21 9:38:00 EDT, Dry Weight Start Date: 10/02/22 Status: Ordered QUEtiapine 25 mg oral tablet 25 mg, 1, tablet, By Mouth, Daily at bedtime, PRN, # 30 tablet, Refills 1, Tot. Refills 1, Maintenance, NEEDED FOR SLEEP, 10/02/22 13:38:00 EST, Route to Pharmacy Electronically, [facility]/pharmacy #[id number], 188, cm, 10/02/22 13:06:00 EST, Height, 77.5, kg,... Start Date: 10/02/22 Stop Date: 12/01/22 Status: Ordered mail deliverer mail deliverer, See Instructions, # 1 each, Refills 0, Tot. Refills 0, Maintenance, Dx psoas abscess, 01/27/17 14:56:45, Compound Start Date: 01/27/17 Status: Ordered traZODone 50 mg oral tablet 50 mg, 1, tablet, By Mouth, Daily at bedtime, # 30 tablet, Refills 0, Tot. Refills 0, Maintenance, 10/02/22 13:36:00 EST, Route to Pharmacy Electronically, [facility]/pharmacy #[id number], Partial fill upon patient request if the prescription is for a schedule II... Start Date: 10/02/22 Status: Ordered Ventolin HFA 108 mcg/inh inhalation aerosol with adapter 1 puffs, By Mouth, Daily, PRN for wheezing, # 18 Gm, 2 Refills, Soft Stop, 08/21/22 19:15:00 EST, Aerosol, [facility]/pharmacy #[id number], 188, cm, 04/18/22 9:50:00 EDT, Height, 77.5, kg, 04/24/21 9:38:00 EDT, Dry Weight Start Date: 08/21/22 Stop Date: 11/19/22 Status: Ordered Vraylar 6 mg oral capsule TAKE 1 CAPSULE BY MOUTH EVERY DAY WITH A MEAL Start Date: 03/13/20 Status: Ordered Problem List Condition Confirmation Course Effective Dates Status H ealt Status Informant Aneurysm of descending thoracic aorta Confirmed Active Anxiety Confirmed Active Asthma Confirmed Active Bipolar disorder Confirmed Active Dyslipidemia Confirmed Active GERD (gastroesophageal reflux disease) Confirmed Active Gout Confirmed Active Hyperlipidemia Confirmed Active HTN (hypertension) Confirmed Active Rheumatoid arthritis Confirmed Active Substance abuse Confirmed Active HCV (hepatitis C virus) Confirmed Active Diagnosis Diagnosis Type Effective Dates Health Status Clinical Service Informant Aneurysm of descending thoracic aorta Discharge Diagnosis 10/02/22 Anxiety Discharge Diagnosis 10/02/22 Asthma Discharge Diagnosis 10/02/22 Bipolar disorder Discharge Diagnosis 10/02/22 Rheumatoid arthritis Discharge Diagnosis 10/02/22 Substance abuse Discharge Diagnosis 10/02/22 HTN (hypertension) Discharge Diagnosis 10/02/22 HCV (hepatitis C virus) Discharge Diagnosis 10/02/22 GERD (gastroesophageal reflux disease) Discharge Diagnosis 10/02/22 Annual physical exam Discharge Diagnosis 10/02/22 Vital Signs Most recent to oldest [Reference Range]: 1 Height 188 cm (10/02/22 1:06 PM) Weight 74 kg (10/02/22 1:06 PM) Oxygen Saturation [94-100 %] 94 % (10/02/22 1:06 PM) Pulse Rate [55-90 bpm] 66 bpm (10/02/22 1:06 PM) Body Mass Index [18.5-24.99 kg/m2] 20.94 kg/m2 (10/02/22 1:06 PM) Blood Pressure [90-138/55-84 mm Hg] 138/ 88mm Hg (10/02/22 1:06 PM) Temperature [96.8-100.4 DegF] 98.7 DegF (10/02/22 1:06 PM) Mode of Delivery (Oxygen) Room air (10/02/22 1:06 PM) Blood pressure sites Arm, left (10/02/22 1:06 PM) Temperature Route Oral (10/02/22 1:06 PM) Weight Obtained Via Standing scale (10/02/22 1:06 PM) Social History Social History Type Response Smoking Status 5-9 cigarettes (betw een 1/4 to 1/2 pack)/day in last 30 days entered on: 07/18/21 Sex Note * Nakia Vu: PERFORM, SIGN, VERIFY Event Display: Patient Education/Instruction Authored Date: [id number] [facility] Clinical Summary Name SHAMIR GALLEGOS Age 62 Years 1960 PCP [id number] Visit Date 10/02/2022 11:57:00 Additional Instructions: Scheduled Appointments?? Future Appointments ?*[facility] ?[address],??[address] ?Phone:??--?Fax:??-- ?Appt. Date:??12/06/2022?2:45 PM ?Scheduled Provider:??Pushpa Alonzo MD Follow-Up Instructions ?? Diagnosis Thoracic aortic aneurysm, without rupture; Rheumatoid arthritis, unspecified; Other psychoactive substance abuse, uncomplicated; Unspecified viral hepatitis C without hepatic coma; Gastro-esophageal reflux disease without esophagitis; Encounter for general adult medical examination without abnormalfindings; Unspecified asthma, uncomplicated; Anxiety disorder, unspecified; Bipolar disorder, unspecified; Essential (primary) hypertension Medications: Please continue your medications until treatment is completed or stopped by your provider. Discuss any questions related to medications with your provider. New Medications [facility]/pharmacy #[id number], [address] [place] [address] [phone], [phone] Quetiapine (QUEtiapine 25 mg oral tablet) 1 tab(s) Oral Daily at Bedtime as needed NEEDED FOR SLEEP for 30 Days. Refills: 1. Next Dose: Medications to Continue Taking That Have Changed [facility]/pharmacy #09, [address] [place] [address] [phone], [phone] - Gabapentin (gabapentin 600 mg oral tablet) 1 tab(s) Oral 3 times a day for 30 Days. Refills: 1. Next Dose: Medications to Continue with No Changes [facility]/pharmacy #0957, [address] [place] [address] [phone], [phone] Amlodipine (amLODIPine 10 mg oral tablet) 1 tab(s) Oral Daily. Refills: 3. Next Dose: HydrOXYzine (hydrOXYzine hydrochloride 50 mg oral tablet) 1 tab(s) Oral 3 times a day. Refills: 1. Next Dose: Losartan (losartan 25 mg oral tablet) 1 tab(s) Oral Daily. Refills: 3. Next Dose: Montelukast (montelukast 10 mg oral tablet) 1 tab(s) Oral Daily at Bedtime. Refills: 3. Next Dose: Trazodone (traZODone 50 mg oral tablet) 1 tab(s) Oral Daily at Bedtime. Refills: 0. Next Dose: These medications were not printed or sent to your pharmacy Albuterol (Ventolin HFA 108 mcg/inh inhalation aerosol with adapter) 1 puff(s) Oral Daily as neededfor wheezing for 30 Days. Refills: 2. Next Dose: cariprazine (Vraylar 6 mg oral capsule) TAKE 1 CAPSULE BY MOUTH EVERY DAY WITH A MEAL. Next Dose: Clonazepam (clonazePAM 0.5 mg oral tablet) 1 tab(s) Oral 3 times a day as needed Anxiety for 10 Days. TAKE 1 TABLET BY MOUTH THREE TIMES A DAY NEEDED. Refills: 2. Next Dose: Fluticasone-Salmeterol (Advair Diskus 500 mcg-50 mcg inhalation powder) 1 puff(s) Inhalation twice a day for 90 Days. Refills: 3. Next Dose: Lamotrigine (lamotrigine 200 mg oral tablet) 2 tab(s) Oral twice a day. Next Dose: Methadone (methadone 5 mg oral tablet) 1 tab(s) Oral every 8 hours. Next Dose: Miscellaneous Rx (mail deliverer) Dx psoas abscess. Refills: 0. Next Dose: Allergy Info:?? Geodon; Remeron; lithium; nafcillin Medications Given This Visit Future Orders ?CBC w/ Differential? Order Date:10/02/22?- Complete by?10/02/22 ?Basic Metabolic Panel? Order Date:10/02/22?- Complete by?10/02/22 ?HCV RNA Quant W/Reflex To Genotype? Order Date:10/02/22?- Complete by?10/02/22 ?Hemoglobin A1C (Monitoring)? Order Date:10/02/22?- Complete by?10/02/22 ?Hepatic Function Panel? Order Date:10/02/22?- Complete by?10/02/22 ?CT Angio Chest? Order Date:10/02/22?- Complete on or after?10/02/22 ?Creatinine? Order Date:10/02/22?- Complete on or after?10/02/22 ?Lipid Panel? Order Date:10/02/22?- Complete by?10/02/22 ?Hepatic Function Panel? Order Date:10/02/22?- Complete by?10/02/22 ?Urinalysis (Outpt)? Order Date:10/02/22?- Complete by?10/02/22 Vital Signs Height 188 cm Weight 74 kg BMI 20.94 kg/m2 Blood Pressure 138 mm Hg/88 mm Hg Temperature 98.7 DegF Pulse Rate 66 bpm Respiratory Rate 02 Sat Mode of Delivery 94 %/Room air You can now view a summary of your hospital visit from the comfort of your home through a free online portal called [employer]. [employer] is a website that allows you to securely view your medical information including discharge summary, medications and follow-up visits. ??You can alsosend a secure electronic message to your doctor???s office to request appointments, renew medications or just ask a question. You can enroll at [email or web address] or register during your next office visit. Disclaimer:?? The information provided is of a general nature and is intended to be used in conjunction with the recommendations and advice of your health care practitioner. ??Every effort has been made to ensure that the information provided is accurate and complete at the time it is provided to you however, as your needs change, or, as new ??information becomes available, different or additional instructions may be required. If you have questions, please consult with your primary care provider or pharmacist, as appropriate. ??This information is not intended to serve as substitution for assessment and evaluation by a qualified health care provider. If you do not have a primary care provider, you may find a [facility] provider by calling [email or web address] [facility] at [phone]. For information about the plan of care including goals and instructions for your diagnosis, please see the patient education orders section of this document. Patient Education Materials?? The content of this educational material or handout may have been modified, supplemented, or adapted from its original content and format to support your individualized medical care. Patient Care team information Care Team Personnel Name: Lani Madrigal RN Position: [facility] SN Zipper Trimmer Member Role: Primary Care Nurse Name: Wanda Reis NP Position: [facility] Associate Professional Member Role: Primary Care Nurse Address: Address: [address] [place] [address]- Name: Felisa Quiroga RN Position: [facility] RN Supv Member Role: Primary Care Nurse Name: Carolynn Thompson RN Position: [facility] RN Member Role: Primary Care Nurse Name: Rena Albert RN Position: [facility] RN Member Role: Primary Care Nurse Name: Luci Haile RN Position: [facility] RN Member Role: Primary Care Nurse Name: Pushpa Alonzo MD Position: [facility] Primary Care Physician Member Role: PCP Address: Address: [address] [place] [id number]- Name: Augustina Adams RN Position: [facility] RN Member Role: Primary Care Nurse Name: Chika Jha RN Position: [facility] SN Zipper Trimmer Member Role: Primary Care Nurse Name: Chapito [...] ONE Name: RONNY ROGERS Address: [address] [place] [address] Name: KYLE COLEMAN Address: home [address] [place] [address]
--- OUTSIDE RECORDS SUMMARY | 2023-04-19 20:25 | XMS_ITS | Continuity of Care Document ---
Author Name Unknown Organization [facility] Adult Address [address] [place] [address]- Care Team Providers Care Line Servicer Name Role Phone Clinton LOPEZ, [facility] Primary Care Physician [place] [facility] [place]23/[place] 03/[place]20 [facility] Adult [address] [place] [address]- [facility] Attending Physician: Clinton LOPEZ, [facility] Allergies, Adverse Reactions, Alerts Substance Reaction Severity Status nafcillin Rash Active Remeron [D]Shortness of breath Activ e Geodon Active Immunizations Given and Recorded Vaccine Date Status Refusal Reason influenza virus vaccine, inactivated 10/01/18 Davin rded pneumococcal 23-valent vaccine 1 05/13/18 Given 1Result Comment: [facility] [id number] Medications Advair Diskus 500 mcg-50 mcg inhalation powder 1, puffs, Inhalation, 2 times a day, # 60 each, Refills 5, Tot. Refills 5, Maintenance, 01/31/20 14:25:00 EDT, Inhaler, Route to Pharmacy Electronically, [id number], [facility]/pharmacy #[id number], 188, cm, 08/16/19 12:53:00 EST, Height Start Date: 01/31/20 Stop Date: 07/29/20 Status: Ordered allopurinol 300 mg oral tablet See Instructions, TAKE 1 TABLET BY MOUTH EVERY DAY, # 30 tablet, Refills 2, Tot. Refills 2, Maintenance, 08/15/19 12:53:22 EST, Instructions Replace Required Details, Route to Pharmacy Electronically, [id number], [facility]/pharmacy... Start Date: 08/15/19 Status: Ordered amLODIPine 10 mg oral tablet 10 mg, 1, tablet, By Mouth, Daily, # 90 tablet, Refills 3, Tot. Refills 3, Maintenance, 08/16/19 13:22:42 EST, Route to Pharmacy Electronically, [id number], [facility]/pharmacy #[id number] Start Date: 08/16/19 Stop Date: 08/10/20 Status: Ordered atorvastatin 40 mg oral tablet 1 tablet = 40 mg, By Mouth, Daily, # 30 tablet, 5 Refills, Maintenance, 09/13/19 10:10:00 EST, Tablet, [facility]/pharmacy #[id number], 188, cm, 08/16/19 12:53:00 EST, Height Start Date: 09/13/19 Stop Date: 03/11/20 Status: Ordered atorvastatin 40 mg oral tablet 1 tablet = 40 mg, By Mouth, Daily, for 30 days, # 30 tablet, 5 Refills, Physician Stop 04/11/20 12:49:00 EDT, 10/14/19 12:49:00 EST, [facility]/pharmacy #0707, 188, cm, 08/16/19 12:53:00 EST, Height Start Date: 10/14/19 Stop Date: 04/11/20 Status: Ordered clonazePAM 0.5 mg oral tablet 1 tablet = 0.5 mg, By Mouth, 4 times a day, 0 Refills, Maintenance, 01/23/17 8:38:49 Start Date: 01/23/17 Status: Ordered Flonase 50 mcg/inh nasal spray 1 sprays, Nares, Both, Daily in AM, # 16 Gm, 5 Refills, Maintenance, 01/26/20 14:36:00 EDT, [place], [facility]/pharmacy #0707, 1 sprays Nares, Both Daily in AM,x30 days, 188, cm, 08/16/19 12:53:00 EST, Height Start Date: 01/26/20 Stop Date: 07/24/20 Status: Ordered gabapentin 600 mg oral tablet 1 tablet, By Mouth, 3 times a day, # 270 tablet, 0 Refills, Maintenance, 11/24/19 13:07:00 EST, [facility]/pharmacy #0707, 188, cm, 08/16/19 12:53:00 EST, Height Start Date: 11/24/19 Status: Ordered LaMICtal 200 mg oral tablet [...] 08/16/19 13:22:41 EST, Route to Pharmacy Electronically, [id number], [facility]/pharmacy #[id number] Start Date: 08/16/19 Stop Date: 08/10/20 Status: Ordered naproxen 500 mg oral tablet 1 tablet, By Mouth, 2 times a day, PRN NEEDED, MODERATE PAIN., # 60 tablet, 0 Refills, Acute, 09/13/19 10:10:00 EST, [facility] STORE 07[facility], 188, cm, 08/16/19 12:53:00 EST, Height Start Date: 09/13/19 Status: Ordered omeprazole 20 mg oral enteric coated capsule 1 capsule = 20 mg, By Mouth, Daily, Before a meal., # 30 capsule, 2 Refills, Soft Stop, 10/14/19 9:49:00 EST, [facility]/pharmacy #0707, 188, cm, 08/16/19 12:53:00 EST, Height Start Date: 10/14/19 Stop Date: 01/12/20 Status: Ordered forging press lever tender forging press lever tender, See Instructions, # 1 each, Refills 0, Tot. Refills 0, Maintenance, Dx psoas abscess, 01/27/17 14:56:45, Compound Start Date: 01/27/17 Status: Ordered Singulair 10 mg oral tablet 10 mg, By Mouth, Daily at bedtime, # 30 tablet, Refills 5, Tot. Refills 5, Maintenance, 02/03/20 11:32:00 EDT, Route to Pharmacy Electronically, [facility]/pharmacy #[id number], 188, cm, 02/02/20 8:48:00 EDT, Height Start Date: 02/03/20 Stop Date: 08/01/20 Status: Ordered Ventolin HFA 108 mcg/inh inhalation aerosol with adapter 1 puffs, By Mouth, Daily, PRN for wheezing, # 18 Gm, 5 Refills, Soft Stop, 01/07/20 11:13:00 EDT, Aerosol, [facility]/pharmacy #0707, 188, cm, 08/16/19 12:53:00 EST, Height Start Date: 01/07/20 Stop Date: 07/05/20 Status: Ordered Zithromax 250 mg oral tablet 1 pack/packet, By Mouth, Once, # 6 tablet, 0 Refills, Soft Stop, 02/02/20 9:28:00 EDT, Tablet, [facility]/pharmacy #[id number], 188, cm, 02/02/20 8:48:00 EDT, Height Start Date: 02/02/20 Status: Ordered Problem List Condition Effective Dates [...]
--- OUTSIDE RECORDS SUMMARY | 2023-04-19 20:25 | XMS_ITS | Continuity of Care Document ---
Author Name Unknown Organization [facility] Adult Address [address] [place] [address]- Care Team Providers Care Agricultural Scientist Name Role Phone Clinton LOPEZ, [facility] Primary Care Physician Encounter [facility] [place] Date(s): 10/02/20 - 11/01/20 [facility] [address] [place] [address]- Allergies, Adverse Reactions, Alerts Substance Reaction Severity Status nafcillin Rash Active Remeron [D]Shortness of breath Activ e Geodon Active Immunizations Given and Recorded Vaccine Date Status Refusal Reason influenza virus vaccine, inactivated 10/01/18 Davin rded pneumococcal 23-valent vaccine 1 05/13/18 Given 1Result Comment: [facility] [id number] Medications Advair Diskus 500 mcg-50 mcg inhalation powder 1, puffs, Inhalation, 2 times a day, # 60 each, Refills 5, Tot. Refills 5, Maintenance, 09/25/20 9:05:00 EST, Inhaler, Route to Pharmacy Electronically, [id number], [facility]/pharmacy #[id number], 188, cm, 05/24/20 9:00:00 EDT, Height, 7... Start Date: 09/25/20 Stop Date: 03/24/21 Status: Ordered amLODIPine 10 mg oral tablet 10 mg, 1, tablet, By Mouth, Daily, # 90 tablet, Refills 1, Tot. Refills 1, Maintenance, 07/26/20 9:09:00 EST, Route to Pharmacy Electronically, [facility]/pharmacy #[id number], 188, cm, 05/24/20 9:00:00 EDT, [...] 08/16/19 13:22:41 EST, Route to Pharmacy Electronically, [id number], [facility]/pharmacy #[id number] Start Date: 08/16/19 Stop Date: 08/10/20 Status: Ordered beam builder beam builder, See Instructions, # 1 each, Refills 0, Tot. Refills 0, Maintenance, Dx psoas abscess, 01/27/17 14:56:45, Compound Start Date: 01/27/17 Status: Ordered SEROquel 25 mg oral tablet 12.5 mg, 0.5, tablet, By Mouth, Daily at bedtime, PRN, # 45 tablet, Refills 0, Tot. Refills 0, Maintenance, Sleep, 10/02/20 15:34:00 EST, Route to Pharmacy Electronically, [facility]/pharmacy #[id number], 188, cm, 05/24/20 9:00:00 EDT, Height, 78.9, kg, 03/15/20 8... Start Date: 10/02/20 Stop Date: 12/31/20 Status: Ordered Singulair 10 mg oral tablet 10 mg, By Mouth, Daily at bedtime, # 30 tablet, Refills 5, Tot. Refills 5, Maintenance, 08/01/20 11:32:00 EST, Route to Pharmacy Electronically, [facility]/pharmacy #[id number], 188, cm, 05/24/20 9:00:00 EDT, Height, 78.9, kg, 03/15/20 8:08:00 EDT, Dry Weight Start Date: 08/01/20 Stop Date: 01/28/21 Status: Ordered Ventolin HFA 108 mcg/inh inhalation aerosol with adapter 1 puffs, By Mouth, Daily, PRN for wheezing, # 18 Gm, 5 Refills, Soft Stop, 01/07/20 11:13:00 EDT, Aerosol, [facility]/pharmacy #[id number], 188, cm, 08/16/19 12:53:00 EST, [...]
--- OUTSIDE RECORDS SUMMARY | 2023-04-19 20:25 | XMS_ITS | Continuity of Care Document ---
Author Name Unknown Organization [facility] Adult Address [address] [place] [address]- Care Team Providers Care Shank Cutter Name Role Phone Pushpa Alonzo MD Primary Care Physician Encounter [facility] [place] Date(s): 07/18/21 - 07/25/21 [facility] Adult [address] [place] [address]- Encounter Diagnosis HTN (hypertension)(Discharge Diagnosis) - 07/18/21 Bipolar disorder(Discharge Diagnosis) - 07/18/21 Fall(Discharge Diagnosis) - 07/18/21 Laceration of forehead(Discharge Diagnosis) - 07/18/21 Attending Physician: Pushpa Alonzo MD Allergies, Adverse Reactions, Alerts Substance Reaction Severity Status nafcillin Rash Active lithium Active Remeron [D]Shortness of breath Activ e Geodon Active Immunizations Given and Recorded Vaccine Date Status Refusal Reason tetanus/diphtheria/pertussis, acel(Tdap) 07/10/21 Recorded influenza virus vaccine, inactivated 10/01/18 Davin rded pneumococcal 23-valent vaccine 1 05/13/18 Given 1Result Comment: [facility] [id number] Medications Advair Diskus 500 mcg-50 mcg inhalation powder 1, puffs, Inhalation, 2 times a day, # 3 each, Refills 3, Tot. Refills 3, Maintenance, 07/18/21 14:53:00 EDT, Inhaler, Route to Pharmacy Electronically, [id number], [id number], 188, cm, 07/18/21 14:52:00 EDT, Height,... Start Date: 07/18/21 Stop Date: 07/13/22 Status: Ordered amLODIPine 10 mg oral tablet 1 tablet, By Mouth, Daily, # 90 tablet, 3 Refills, Maintenance, 07/18/21 14:53:00 EDT, [facility]/pharmacy#0957, 188, cm, 07/18/21 14:52:00 EDT, Height, 77.5, kg, 04/24/21 9:38:00 EDT, Dry Weight Start Date: 07/18/21 Status: Ordered clonazePAM 0.5 mg oral tablet 1 tablet = 0.5 mg, By Mouth, 3 times a day, PRN Anxiety, TAKE 1 TABLET BY MOUTH THREE TIMES A DAY NEEDED, # 30 tablet, 2 Refills, Maintenance, 03/16/20 16:23:00 EDT, Tablet, [facility]/pharmacy #[id number], 188, cm, 03/16/20 15:37:00 EDT, Height, 78.9, kg, 02/21... Start Date: 03/16/20 Stop Date: 04/15/20 Status: Ordered gabapentin 600 mg oral tablet 1 tablet, By Mouth, 3 times a day, # 42 tablet, 1 Refills, Maintenance, 03/16/20 16:23:00 EDT, [facility]/pharmacy #[id number], 188, cm, 03/16/20 15:37:00 EDT, [...] 07/18/21 14:53:00 EDT, Route to Pharmacy Electronically, [facility]/pharmacy #[id number], 188, cm, 07/18/21 14:52:00 EDT, Height, [...] 07/18/21 14:53:00 EDT, Route to Pharmacy Electronically, [facility]/pharmacy #[id number], 188,cm, 07/18/21 14:52:00 EDT, Height, 77.5, kg, ... 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 Refills 0, Maintenance, Dx psoas abscess, 01/27/17 14:56:45, Compound Start Date: 01/27/17 Status: Ordered Singulair 10 mg oral tablet 10 mg, 1, tablet, By Mouth, Daily at bedtime, # 90 tablet, Refills 3, Tot. Refills 3, Maintenance, 07/18/21 14:53:00 EDT, Route to Pharmacy Electronically, [facility]/pharmacy #[id number], 188, cm, 07/18/21 14:52:00 EDT, Height, [...] Effective Dates Health Status Clinical Service Informant HTN (hypertension) Discharge Diagnosis 07/18/21 Bipolar disorder Discharge Diagnosis 07/18/21 Fall Discharge Diagnosis 07/18/21 Laceration of forehead Discharge Diagnosis 07/18/21 Vital Signs Most recent to oldest [Reference Range]: 1 2 3 Height 188 cm (07/18/21 2:52 PM) 188 cm (07/18/21 2:42 PM) 188 cm (07/18/21 2:40 PM) Weight 78.4 kg (07/18/21 2:40 PM) Oxygen Saturation [94-100 %] 96 % (07/18/21 2:40 PM) Pulse Rate [55-90 bpm] 68 bpm (07/18/21 2:40 PM) Body Mass Index [18.5-24.99] 22.18 (07/18/21 2:40 PM) Blood Pressure [90-138/55-84 mm Hg] 190/90mm Hg *H* (07/18/21 2:52 PM) 215/104mm Hg *H* (07/18/21 2:42 PM) 191/80mm Hg *H* (07/18/21 2:40 PM) Mode of Delivery (Oxygen) Room air (07/18/21 2:40 PM) Blood pressure sites Arm, left (07/18/21 2:42 PM) Arm, left (07/18/21 2:40 PM) Weight Obtained Via Standing scale (07/18/21 2:40 PM) Social History Social History Type Response Smoking Status 5-9 cigarettes (melony perdue 1/4 to 1/2 pack)/day in last 30 days entered on: 07/18/21 Sex
--- OUTSIDE RECORDS SUMMARY | 2023-04-19 20:25 | XMS_ITS | Continuity of Care Document ---
Author Name Unknown Organization [facility] Adult Address [address] [place] [address]- Care Team Providers Care Game And Fish Protector Name Role Phone [facility] Primary Care Physician Encounter [facility] [place]CT R [id number] Date(s): 02/21/23 - 02/28/23 [facility] [address] [place] [address]- Encounter Diagnosis Rheumatoid arthritis(Discharge Diagnosis) - 02/21/23 Substance abuse(Discharge Diagnosis) - 02/21/23 Bipolar disorder(Discharge Diagnosis) - 02/21/23 HCV (hepatitis C virus)(Discharge Diagnosis) - 02/21/23 Aneurysm of descending thoracic aorta(Discharge Diagnosis) - 02/21/23 Attending Physician: [facility]day [facility] Allergies, Adverse Reactions, Alerts Substance Reaction Severity Status nafcillin Rash Active lithium Active Remeron [D]Shortness of breath Activ e Geodon Active Immunizations Given and Recorded Vaccine Date Status Refusal Reason tetanus/diphtheria/pertussis, acel(Tdap) 07/10/21 Recorded influenza virus vaccine, inactivated 10/01/18 Davin rded pneumococcal 23-valent vaccine 1 05/13/18 Given 1Result Comment: [facility] [id number] Medications Advair Diskus 500 mcg-50 mcg inhalation powder 1, puffs, Inhalation, 2 times a day, # 3 each, Refills 3, Tot. Refills 3, Maintenance, 08/21/22 19:17:00 EST, Inhaler, Route to Pharmacy Electronically, [id number], [id number], 188, cm, 04/18/22 9:50:00 EDT, Height, 7... Start Date: 08/21/22 Stop Date: 08/16/23 Status: Ordered amLODIPine 10 mg oral tablet 1 tablet, By Mouth, Daily, # 90 tablet, 3 Refills, Maintenance, 10/02/22 13:35:00 EST, [facility]/pharmacy#[id number], 188, cm, 10/02/22 13:06:00 EST, Height, 77.5, kg, 04/24/21 9:38:00 EDT, Dry Weight Start Date: 10/02/22 Status: Ordered gabapentin 600 mg oral tablet 1 tablet = 600 mg, By Mouth, 3 times a day, # 90 tablet, 1 Refills, Maintenance, 10/02/22 13:35:00 EST, [facility]/pharmacy #[id number], 188, cm, 10/02/22 13:06:00 EST, Height, 77.5, kg, 04/24/21 9:38:00 EDT, DryWeight Start Date: 10/02/22 Stop Date: 12/01/22 Status: Ordered hydrOXYzine hydrochloride 50 mg oral tablet 1 tablet, By Mouth, 3 times a day, # 90 tablet, 1 Refills, Maintenance, 12/30/22 9:48:00 EDT, [facility] STORE [id number], 188, cm, 12/06/22 13:35:00 EDT, Height, 77.5, kg, 04/24/21 9:38:00 EDT, Dry Weight Start Date: 12/30/22 Status: Ordered lamotrigine 200 mg oral tablet 2 tablet = 400 mg, By Mouth, 2 times a day Start Date: 03/13/20 Status: Ordered losartan 25 mg oral tablet 1 tablet, By Mouth, Daily, # 90 tablet, 3 Refills, Maintenance, 10/02/22 13:36:00 EST, [facility]/pharmacy#[id number], 188, cm, 10/02/22 13:06:00 EST, Height, 77.5, kg, 04/24/21 9:38:00 EDT, Dry Weight Start Date: 10/02/22 Status: Ordered montelukast 10 mg oral tablet 1, tablet, By Mouth, Daily at bedtime, # 90 tablet, Refills 3, Tot. Refills 3, Maintenance, 10/02/22 13:36:00 EST, Route to Pharmacy Electronically, [facility]/pharmacy #[id number], 188, cm, 10/02/22 13:06:00 EST, Height, 77.5, kg, 04/24/21 9:38:00 EDT, Dry Weight Start Date: 10/02/22 Status: Ordered ProAir HFA 90 mcg/inh inhalation aerosol 1 puffs, Inhalation, Daily, PRN NEEDED FOR WHEEZE, # 18 each, 5 Refills, Maintenance, 12/27/22 11:29:00 EDT, [id number], 25, INHALE 1 PUFF EVERY DAY NEEDED FOR WHEEZE, 188, cm, 12/06/22 13:35:00 EDT, Height, 77.5, kg, 04/24/21 9:38:00 EDT,... Start Date: 12/27/22 Status: Ordered QUEtiapine 25 mg oral tablet 1, tablet, By Mouth, Daily at bedtime, PRN, # 30 tablet, Refills 1, Maintenance, NEEDED FOR SLEEP, 12/30/22 9:48:00 EDT, Route to Pharmacy Electronically, [id number], 188, cm, 12/06/22 13:35:00 EDT, Height, 77.5, kg, 04/24/21 9:38:00 EDT, Dry... Start Date: 12/30/22 Status: Ordered heating fixture tender heating fixture tender, See Instructions, # 1 each, Refills 0, Tot. Refills 0, Maintenance, Dx psoas abscess, 01/27/17 14:56:45, Compound Start Date: 01/27/17 Status: Ordered traZODone 50 mg oral tablet 1, tablet, By Mouth, Daily at bedtime, # 30 tablet, Refills 2, Tot. Refills 2, Maintenance, 12/05/22 15:32:00 EDT, Route to Pharmacy Electronically, [facility]/pharmacy #[id number], 188, cm, 10/02/22 13:06:00 EST, [...] arthritis Confirmed Active Substance abuse Confirmed Active Diagnosis Diagnosis Type Effective Dates Health Status Clinical Service Informant Rheumatoid arthritis Discharge Diagnosis 02/21/23 Substance abuse Discharge Diagnosis 02/21/23 Bipolar disorder Discharge Diagnosis 02/21/23 HCV (hepatitis C virus) Discharge Diagnosis 02/21/23 Aneurysm of descending thoracic aorta Discharge Diagnosis 02/21/23 Social History Social History Type Response Smoking Status 5-9 cigarettes (betw een 1/4 to 1/2 pack)/day in last 30 days entered on: 07/18/21 Sex Patient Care team information Care Team Personnel Name: Lani Madrigal RN Position: [facility] SN Doll Dresser Member Role: Primary Care Nurse Name: Wanda Reis NP Position: [facility] Associate Professional Member Role: Primary Care Nurse Address: Address: [address] [place] [address]- Name: Felisa Quiroga RN Position: [facility] RN Supv Member Role: Primary Care Nurse Name: Carolynn Thompson RN Position: S RN Member Role: Primary Care Nurse Name: Luci Haile RN Position: S RN Member Role: Primary Care Nurse Name: Pushpa Alonzo MD Position: [facility] Physician - Primary Care Member Role: PCP Address: Address: [address] [place] [address]- Name: Augustina Adams RN Position: [facility] RN Member Role: Primary Care Nurse Name: Chika Jha RN Position: [facility] SN Doll Dresser Member Role: Primary Care Nurse Name: Chapito Armstrong RN Position: S RN Member Role: Primary Care Nurse Name: Carmina Rose RN Position: S RN Member Role: Primary Care Nurse Name: Leanna King RN Position: [facility] RN Member Role: Primary Care Nurse Care Team Related Persons Name: KT PHILLIPS Name: RONNY ROGERS Address: home [address] [place] [address] Name: KYLE COLEMAN Address: home [address] [place] [id number]
--- OUTSIDE RECORDS SUMMARY | 2023-04-19 20:25 | XMS_ITS | Continuity of Care Document ---
Author Name Unknown Organization [facility] Adult Address [address] [place] [address]- Care Team Providers Care Machine Straw Hat Presser Name Role Phone Clinton LOPEZ, [facility] Primary Care Physician ( [phone] [place] [facility] [place] 08/23/21 [facility] Adult [address] [place] [address]- Allergies, Adverse Reactions, Alerts Substance Reaction Severity Status nafcillin Rash Active lithium Active Remeron [D]Shortness of breath Activ e Geodon Active Immunizations Given and Recorded Vaccine Date Status Refusal Reason tetanus/diphtheria/pertussis, acel(Tdap) 07/10/21 Recorded influenza virus vaccine, inactivated 10/01/18 Davin rded pneumococcal 23-valent vaccine 1 05/13/18 Given 1Result Comment: [facility] [id number] Medications Advair Diskus 500 mcg-50 mcg inhalation powder 1, puffs, Inhalation, 2 times a day, # 3 each, Refills 3, Tot. Refills 3, Maintenance, 07/18/21 14:53:00 EDT, Inhaler, Route to Pharmacy Electronically, [id number], [facility]/pharmacy #[id number], 188, cm, 07/18/21 14:52:00 EDT, Height,... [...] 2 Refills, Maintenance, 03/16/20 16:23:00 EDT, Tablet, [facility]/pharmacy #[id number], 188, cm, 03/16/20 15:37:00 EDT, Height, 78.9, kg, 02/21... Start Date: 03/16/20 Stop Date: 04/15/20 Status: Ordered gabapentin 600 mg oral tablet 1 tablet, By Mouth, 3 times a day, # 42 tablet, 1 Refills, Maintenance, 03/16/20 16:23:00 EDT, [facility]/pharmacy #[id number], 188, cm, 03/16/20 15:37:00 EDT, [...] 07/18/21 14:53:00 EDT, Route to Pharmacy Electronically, [facility]/pharmacy #[id number], 188, cm, 07/18/21 14:52:00 EDT, [...] 07/18/21 14:53:00 EDT, Route to Pharmacy Electronically, [facility]/pharmacy #[id number], 188,cm, 07/18/21 14:52:00 EDT, Height, 77.5, kg, ... Start Date: 07/18/21 Status: Ordered keyboard operator keyboard operator, See Instructions, # 1 each, Refills 0, Tot. Refills 0, Maintenance, Dx psoas abscess, 01/27/17 14:56:45, Compound Start Date: 01/27/17 Status: Ordered Singulair 10 mg oral tablet 10 mg, 1, tablet, By Mouth, Daily at bedtime, # 90 tablet, Refills 3, Tot. Refills 3, Maintenance, 07/18/21 14:53:00 EDT, Route to Pharmacy Electronically, [facility]/pharmacy #[id number], 188, cm, 07/18/21 14:52:00 EDT, [...] Refills, Soft Stop, 01/07/20 11:13:00 EDT, Aerosol, [facility]/pharmacy #[id number], 188, cm, 08/16/19 12:53:00 EST, [...]
--- OUTSIDE RECORDS SUMMARY | 2023-04-19 20:25 | XMS_ITS | Continuity of Care Document ---
Author Name Unknown Organization [facility] Adult Address [address] [place] [address]- Care Team Providers Care Crematorium Operator Name Role Phone Clinton LOPEZ, [facility] Primary Care Physician ( [phone] Encounter [facility] [place] Date(s): 04/05/21 - 05/05/21 [facility] Adult [address] [place] [address]- Attending Physician: Sherley Wilkinson Admitting Physician: Admtr, Ar8 Referring Physician: Admtr, Ar8 Allergies, Adverse Reactions, Alerts Substance Reaction Severity Status nafcillin Rash Active lithium Active Remeron [D]Shortness of breath Activ e Geodon Active Immunizations Given and Recorded Vaccine Date Status Refusal Reason influenza virus vaccine, inactivated 10/01/18 Davin rded pneumococcal 23-valent vaccine 1 05/13/18 Given 1Result Comment: [facility] [id number] Medications Advair Diskus 500 mcg-50 mcg inhalation powder 1, puffs, Inhalation, 2 times a day, # 60 each, Refills 5, Tot. Refills 5, Maintenance, 09/25/20 9:05:00 EST, Inhaler, Route to Pharmacy Electronically, [id number], [facility]/pharmacy #[id number], 188, cm, 05/24/20 9:00:00 EDT, Height, 7... Start Date: 09/25/20 Stop Date: 03/24/21 Status: Ordered amLODIPine 10 mg oral tablet 1 tablet, By Mouth, Daily, # 90 tablet, 1 Refills, Maintenance, 01/18/21 12:28:00 EDT, [id number], 188, cm, 01/04/21 13:38:00 EDT, Height, 78.9, kg, 03/15/20 8:08:00 EDT, Dry Weight Start Date: 01/18/21 Status: Ordered clonazePAM 0.5 mg oral tablet 1 tablet = 0.5 mg, By Mouth, 3 times a day, PRN Anxiety, TAKE 1 TABLET BY MOUTH THREE TIMES A DAY NEEDED, # 30 tablet, 2 Refills, Maintenance, 03/16/20 16:23:00 EDT, Tablet, [facility]/pharmacy #[id number], 188, cm, 03/16/20 15:37:00 EDT, Height, 78.9, kg, 02/21... Start Date: 03/16/20 Stop Date: 04/15/20 Status: Ordered gabapentin 600 mg oral tablet 1 tablet, By Mouth, 3 times a day, # 42 tablet, 1 Refills, Maintenance, 03/16/20 16:23:00 EDT, [facility]/pharmacy #[id number], 188, cm, 03/16/20 15:37:00 EDT, Height, [...] 08/16/19 13:22:41 EST, Route to Pharmacy Electronically, [id number], [facility]/pharmacy #[id number] Start Date: 08/16/19 Stop Date: 08/10/20 [...] 8:38:00 EDT, Route to Pharmacy Electronically, [facility] 455[facility], 188, cm,10/20/20 12:25:00 EST, Height, 78.9, kg, 03/15/20 8... Start Date: 12/28/20 Status: Ordered certified nurse aide certified nurse aide, See Instructions, # 1 each, Refills 0, Tot. Refills 0, Maintenance, Dx psoas abscess, 01/27/17 14:56:45, Compound Start Date: 01/27/17 Status: Ordered Singulair 10 mg oral tablet 10 mg, By Mouth, Daily at bedtime, # 30 tablet, Refills 5, Tot. Refills 5, Maintenance, 08/01/20 11:32:00 EST, Route to Pharmacy Electronically, [facility]/pharmacy #[id number], 188, cm, 05/24/20 9:00:00 EDT, Height, [...] Soft Stop, 01/07/20 11:13:00 EDT, Aerosol, [facility]/pharmacy #0707, 188, cm, 08/16/19 12:53:00 EST, Height [...]
--- OUTSIDE RECORDS SUMMARY | 2023-04-19 20:25 | XMS_ITS | Continuity of Care Document ---
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 [place] Date(s): 10/20/20 - 11/19/20 [facility] Adult [address] [place] [address]- Attending Physician: Sherley Wilkinson Admitting Physician: Admtr, Sherley Referring Physician: Admtr, Ar8 Allergies, Adverse Reactions, Alerts Substance Reaction Severity Status nafcillin Rash Active Remeron [D]Shortness of breath Activ e Geodon Active Immunizations Given and Recorded Vaccine Date Status Refusal Reason influenza virus vaccine, inactivated 10/01/18 Davin rded pneumococcal 23-valent vaccine 1 05/13/18 Given 1Result Comment: [facility] [id number] Medications Advair Diskus 500 mcg-50 mcg inhalation powder 1, puffs, Inhalation, 2 times a day, # 60 each, Refills 5, Tot. Refills 5, Maintenance, 09/25/20 9:05:00 EST, Inhaler, Route to Pharmacy Electronically, [id number], [facility]/pharmacy #[id number], 188, cm, 05/24/20 9:00:00 EDT, Height, 7... Start Date: 09/25/20 Stop Date: 03/24/21 Status: Ordered amLODIPine 10 mg oral tablet 10 mg, 1, tablet, By Mouth, Daily, # 90 tablet, Refills 1, Tot. Refills 1, Maintenance, 07/26/20 9:09:00 EST, Route to Pharmacy Electronically, [facility]/pharmacy #[id number], 188, cm, 05/24/20 9:00:00 EDT, Height, 78.9, kg, 03/15/20 8:08:00 EDT, Dry Weight Start Date: 07/26/20 Stop Date: 01/22/21 Status: Ordered clonazePAM 0.5 mg oral tablet 1 tablet = 0.5 mg, By Mouth, 3 times a day, PRN Anxiety, TAKE 1 TABLET BY MOUTH THREE TIMES A DAY NEEDED, # 30 tablet, 2 Refills, Maintenance, 03/16/20 16:23:00 EDT, Tablet, [facility]/pharmacy #[id number], 188, cm, 03/16/20 15:37:00 EDT, Height, 78.9, kg, 02/21... Start Date: 03/16/20 Stop Date: 04/15/20 Status: Ordered gabapentin 600 mg oral tablet 1 tablet, By Mouth, 3 times a day, # 42 tablet, 1 Refills, Maintenance, 03/16/20 16:23:00 EDT, [facility]/pharmacy #[id number], 188, cm, 03/16/20 15:37:00 [...] 08/16/19 13:22:41 EST, Route to Pharmacy Electronically, [id number], [facility]/pharmacy #[id number] Start Date: 08/16/19 Stop Date: 08/10/20 Status: Ordered neuropsychology medical consultant neuropsychology medical consultant, See Instructions, # 1 each, Refills 0, Tot. Refills 0, Maintenance, Dx psoas abscess, 05/08/17 14:56:45, Compound Start Date: 01/27/17 Status: Ordered SEROquel 25 mg oral tablet 12.5 mg, 0.5, tablet, By Mouth, Daily at bedtime, PRN, # 45 tablet, Refills 0, Tot. Refills 0, Maintenance, Sleep, 10/02/20 15:34:00 EST, Route to Pharmacy Electronically, [facility]/pharmacy #[id number], 188, cm, 05/24/20 9:00:00 EDT, Height, 78.9, kg, 03/15/20 8... Start Date: 10/02/20 Stop Date: 12/31/20 Status: Ordered Singulair 10 mg oral tablet 10 mg, By Mouth, Daily at bedtime, # 30 tablet, Refills 5, Tot. Refills 5, Maintenance, 08/01/20 11:32:00 EST, Route to Pharmacy Electronically, [facility]/pharmacy #[id number], 188, cm, 05/24/20 9:00:00 EDT, Height, 78.9, kg, 03/15/20 8:08:00 EDT, Dry Weight Start Date: 08/01/20 Stop Date: 01/28/21 Status: Ordered Ventolin HFA 108 mcg/inh inhalation aerosol with adapter 1 puffs, By Mouth, Daily, PRN for wheezing, # 18 Gm, 5 Refills, Soft Stop, 01/07/20 11:13:00 EDT, Aerosol, [facility]/pharmacy #[id number], 188, cm, [...]
--- OUTSIDE RECORDS SUMMARY | 2023-04-19 20:25 | XMS_ITS | Continuity of Care Document ---
Author Name Unknown Organization [facility] Adult Address [address] [place] [address]- Care Team Providers Care [id number] Java Developer Name Role Phone Clinton LOPEZ, Pushpa Primary Care Physician Encounter [facility] [place] Date(s): 07/10/22 - 08/11/22 [facility] [address] [place] [address]- Attending Physician: Eddie Garcia MD Referring Physician: Pushpa Alonzo MD Allergies, Adverse Reactions, Alerts Substance Reaction Severity Status nafcillin Rash Active lithium Active Remeron [D]Shortness of breath Activ e Geodon Active Immunizations Given and Recorded Vaccine Date Status Refusal Reason tetanus/diphtheria/pertussis, acel(Tdap) 07/10/21 Recorded influenza virus vaccine, inactivated 10/01/18 Davin rded pneumococcal 23-valent vaccine 1 05/13/18 Given 1Result Comment: [facility] [id number] Medications Advair Diskus 500 mcg-50 mcg inhalation powder 1, puffs, Inhalation, 2 times a day, # 3 each, Refills 3, Tot. Refills 3, Maintenance, 07/18/21 14:53:00 EDT, Inhaler, Route to Pharmacy Electronically, [id number], [id number], 188, cm, 07/18/21 14:52:00 EDT, [...] 3 times a day, # 90 tablet, 0 Refills, Maintenance, 07/17/22 15:01:00 EDT, [facility]/pharmacy #[id number], Partial fill upon patient request if the prescription is for a schedule II opioid drug., 188, cm, 04/18/22 9:50:00 EDT, Height,... Start Date: 07/17/22 Stop Date: 08/16/22 Status: Ordered lamotrigine 200 mg oral tablet 2 tablet = 400 mg, By Mouth, 2 times a day Start Date: 03/13/20 Status: Ordered losartan 25 mg oral tablet 1 tablet, By Mouth, Daily, # 90 tablet, 3 Refills, Maintenance, 07/10/22 19:38:00 EDT, [facility] STORE [id number], 188, cm, 04/18/22 9:50:00 EDT, Height, 77.5, [...] 07/11/22 9:16:00 EDT, Route to Pharmacy Electronically, [facility] [id number], 188, cm, 04/18/22 9:50:00 EDT, Height, 77.5, kg, 04/24/21 9:38:00 EDT, Dry... Start Date: 07/11/22 Status: Ordered plastic parts fabricator trimmer plastic parts fabricator trimmer, See Instructions, # 1 each, Refills 0, Tot. Refills 0, Maintenance, Dx psoas abscess, 01/27/17 14:56:45, Compound Start Date: 01/27/17 Status: Ordered Singulair 10 mg oral tablet 10 mg, 1, tablet, By Mouth, Daily at bedtime, # 90 tablet, Refills 3, Tot. Refills 3, Maintenance, 07/18/21 14:53:00 EDT, Route to Pharmacy Electronically, [facility]/pharmacy #[id number], 188, cm, 07/18/21 14:52:00 [...] Refills, Soft Stop, 01/17/22 15:12:00 EDT, Aerosol, [facility]/pharmacy #[id number], 188, cm, 07/18/21 14:52:00 [...] Team Personnel Name: Lani Madrigal RN Position: [facility] SN Director Of Laboratory Operations Member Role: Primary Care Nurse Name: Wanda Reis NP Position: [facility] Associate Professional Member Role: Primary Care Nurse Address: Address: [address] [place] [id number]- Name: Felisa Quiroga RN Position: [facility] RN Supv Member Role: Primary Care Nurse Name: Carolynn Thompson RN Position: [facility] RN Member Role: Primary Care Nurse Name: Rena Albert RN Position: [facility] RN Member Role: Primary Care Nurse Name: Luci Haile RN Position: [facility] RN Member Role: Primary Care Nurse Name: Pushpa Alonzo MD Position: [facility] Primary Care Physician Member Role: PCP Address: Address: [address] [place] [address]- Name: Augustina Adams RN Position: [facility] RN Member Role: Primary Care Nurse Name: Chika Jha RN Position: [facility] SN Director Of Laboratory Operations Member Role: Primary Care Nurse Name: Chapito Armstrong RN Position: [facility] RN Member Role: Primary Care Nurse Name: Carmina Rose RN Position: [facility] RN Member Role: Primary Care Nurse Name: Carmen Pace RN Position: [facility] RN Member Role: Primary Care Nurse Name: Leanna King RN Position: [facility] RN Member Role: Primary Care Nurse Care Team Related Persons Name: NO, ONE Name: RONNY ROGERS Address: home [address] [place] [address] Name: KYLE COLEMAN Address: home [address] [place] [address]
--- OUTSIDE RECORDS SUMMARY | 2023-04-19 20:25 | XMS_ITS | Continuity of Care Document ---
Author Name Unknown Organization [facility] Adult Address [address] [place] [address]- Care Team Providers Care Underwear Welter Name Role Phone Clinton LOPEZ, [facility] Primary Care Physician [place] [facility] [place] 02/16/22 [facility] Adult [address] [place] [address]- Allergies, Adverse Reactions, Alerts Substance Reaction Severity Status nafcillin Rash Active lithium Active Remeron [D]Shortness of breath Activ e Geodon Active Immunizations Given and Recorded Vaccine Date Status Refusal Reason tetanus/diphtheria/pertussis, acel(Tdap) 07/10/21 Recorded influenza virus vaccine, inactivated 10/01/18 Davin rded pneumococcal 23-valent vaccine 1 05/13/18 Given 1Result Comment: [facility] [id number] Medications Advair Diskus 500 mcg-50 mcg inhalation powder 1, puffs, Inhalation, 2 times a day, # 3 each, Refills 3, Tot. Refills 3, Maintenance, 07/18/21 14:53:00 EDT, Inhaler, Route to Pharmacy Electronically, [id number], [facility]/pharmacy #[id number], 188, cm, 07/18/21 14:52:00 EDT, [...] 2 Refills, Maintenance, 03/16/20 16:23:00 EDT, Tablet, [facility]/pharmacy #[id number], 188, cm, 03/16/20 15:37:00 EDT, Height, 78.9, kg, 02/21... Start Date: 03/16/20 Stop Date: 04/15/20 Status: Ordered gabapentin 600 mg oral tablet 1 tablet, By Mouth, 3 times a day, # 42 tablet, 1 Refills, Maintenance, 03/16/20 16:23:00 EDT, [facility]/pharmacy #[id number], 188, cm, 03/16/20 15:37:00 EDT, Height, 78.9, kg, 03/15/20 8:08:00 EDT, Dry Weight Start Date: 03/16/20 Stop Date: 04/13/20 Status: Ordered hydrOXYzine hydrochloride 50 mg oral tablet 1 tablet = 50 mg, By Mouth, 3 times a day, PRN for anxiety, for 21 days, # 60 tablet, 1 Refills, Acute 03/22/22 15:34:00 EDT, 02/08/22 15:34:00 EDT, Tablet, [facility]/pharmacy #[id number], Partial fill upon patient request [...] 07/18/21 14:53:00 EDT, Route to Pharmacy Electronically, [facility]/pharmacy #[id number], 188, cm, 07/18/21 14:52:00 EDT, [...] 07/18/21 14:53:00 EDT, Route to Pharmacy Electronically, [facility]/pharmacy #[id number], 188,cm, 07/18/21 14:52:00 EDT, Height, 77.5, kg, ... Start Date: 07/18/21 Status: Ordered fisher sponge hooking fisher sponge hooking, See Instructions, # 1 each, Refills 0, Tot. Refills 0, Maintenance, Dx psoas abscess, 01/27/17 14:56:45, Compound Start Date: 01/27/17 Status: Ordered Singulair 10 mg oral tablet 10 mg, 1, tablet, By Mouth, Daily at bedtime, # 90 tablet, Refills 3, Tot. Refills 3, Maintenance, 07/18/21 14:53:00 EDT, Route to Pharmacy Electronically, [facility]/pharmacy #[id number], 188, cm, 07/18/21 14:52:00 EDT, [...] Refills, Soft Stop, 01/17/22 15:12:00 EDT, Aerosol, [facility]/pharmacy #[id number], 188, cm, 07/18/21 14:52:00 EDT, [...]
--- OUTSIDE RECORDS SUMMARY | 2023-04-19 20:25 | XMS_ITS | Continuity of Care Document ---
Author Name Unknown Organization [facility] Adult Address [address] [place] [address]- Care Team Providers Care Manager Gas Name Role Phone Clinton LOPEZ, [facility] Primary Care Physician [place] [facility] [place]18[place] - 04/25/22 [facility] Adult [address] [place] [address]- Encounter Diagnosis Peyronie disease(Discharge Diagnosis) - 04/18/22 Aneurysm of descending thoracic aorta(Discharge Diagnosis) - 04/18/22 HTN (hypertension)(Discharge Diagnosis) - 04/18/22 Hyperlipidemia(Discharge Diagnosis) - 04/18/22 Asthma(Discharge Diagnosis) - 04/18/22 Bipolar disorder(Discharge Diagnosis) - 04/18/22 Attending Physician: Eddie Garcia MD Allergies, Adverse Reactions, Alerts Substance Reaction Severity Status nafcillin Rash Active lithium Active Remeron [D]Shortness of breath Activ e Geodon Active Immunizations Given and Recorded Vaccine Date Status Refusal Reason tetanus/diphtheria/pertussis, acel(Tdap) 07/10/21 Recorded influenza virus vaccine, inactivated 10/01/18 Davin rded pneumococcal 23-valent vaccine 1 05/13/18 Given 1Result Comment: [facility] [id number] Medications Advair Diskus 500 mcg-50 mcg inhalation powder 1, puffs, Inhalation, 2 times a day, # 3 each, Refills 3, Tot. Refills 3, Maintenance, 07/18/21 14:53:00 EDT, Inhaler, Route to Pharmacy Electronically, [id number], [facility]/pharmacy #[id number], 188, cm, 07/18/21 14:52:00 EDT, Height,... Start Date: 07/18/21 Stop Date: 07/13/22 Status: Ordered amLODIPine 10 mg oral tablet 1 tablet, By Mouth, Daily, # 90 tablet, 3 Refills, Maintenance, 07/18/21 14:53:00 EDT, [facility]/pharmacy#0957, 188, cm, 07/18/21 14:52:00 EDT, Height, 77.5, kg, 04/24/21 9:38:00 EDT, Dry Weight Start Date: 07/18/21 Status: Ordered clonazePAM 0.5 mg oral tablet 1 tablet = 0.5 mg, By Mouth, 3 times a day, PRN Anxiety, TAKE 1 TABLET BY MOUTH THREE TIMES A DAY NEEDED, # 30 tablet, 2 Refills, Maintenance, 03/16/20 16:23:00 EDT, Tablet, [facility]/pharmacy #[id number], 188, cm, 03/16/20 15:37:00 EDT, Height, 78.9, kg, 02/21... Start Date: 03/16/20 Stop Date: 04/15/20 Status: Ordered gabapentin 600 mg oral tablet 1 tablet, By Mouth, 3 times a day, # 42 tablet, 1 Refills, Maintenance, 03/16/20 16:23:00 EDT, [facility]/pharmacy #[id number], 188, cm, 03/16/20 15:37:00 EDT, Height, 78.9, kg, 03/15/20 8:08:00 EDT, Dry Weight Start Date: 03/16/20 Stop Date: 04/13/20 Status: Ordered lamotrigine 200 mg oral tablet 2 tablet = 400 mg, By Mouth, 2 times a day Start Date: 03/13/20 Status: Ordered losartan 25 mg oral tablet 25 mg, 1, tablet, By Mouth, Daily, # 90 tablet, Refills 3, Tot. Refills 3, Soft Stop, 07/18/21 14:53:00 EDT, Route to Pharmacy Electronically, [facility]/pharmacy #[id number], 188, cm, 07/18/21 14:52:00 [...] 07/18/21 14:53:00 EDT, Route to Pharmacy Electronically, [facility]/pharmacy #[id number], 188,cm, 07/18/21 14:52:00 EDT, Height, 77.5, kg, ... Start Date: 07/18/21 Status: Ordered muffler tender muffler tender, See Instructions, # 1 each, Refills 0, Tot. Refills 0, Maintenance, Dx psoas abscess, 01/27/17 14:56:45, Compound Start Date: 01/27/17 Status: Ordered Singulair 10 mg oral tablet 10 mg, 1, tablet, By Mouth, Daily at bedtime, # 90 tablet, Refills 3, Tot. Refills 3, Maintenance, 07/18/21 14:53:00 EDT, Route to Pharmacy Electronically, [facility]/pharmacy #[id number], 188, cm, 07/18/21 14:52:00 [...] Refills, Soft Stop, 01/17/22 15:12:00 EDT, Aerosol, [facility]/pharmacy #[id number], 188, cm, 07/18/21 14:52:00 [...] Effective Dates Health Status Clinical Service Informant Peyronie disease Discharge Diagnosis 04/18/22 Aneurysm of descending thoracic aorta Discharge Diagnosis 04/18/22 HTN (hypertension) Discharge Diagnosis 04/18/22 Hyperlipidemia Discharge Diagnosis 04/18/22 Asthma Discharge Diagnosis 04/18/22 Bipolar disorder Discharge Diagnosis 04/18/22 Vital Signs Most recent to oldest [Reference Range]: 1 2 Height 188 cm (04/18/22 9:50 AM) 188 cm (04/18/22 9:15 AM) Weight 72.7 kg (04/18/22 9:15 AM) Oxygen Saturation [94-100 %] 95 % (04/18/22 9:15 AM) Pulse Rate [55-90 bpm] 91 bpm *H* (04/18/22 9:15 AM) Body Mass Index [18.5-24.99] 20.57 (04/18/22 9:15 AM) Blood Pressure [90-138/55-84 mm Hg] 124/ 68mm Hg (04/18/22 9:50 AM) 136/81mm Hg (04/18/22 9:15 AM) Mode of Delivery (Oxygen) Room air (04/18/22 9:15 AM) Blood pressure sites Arm, right (04/18/22 9:50 AM) Arm, left (04/18/22 9:15 AM) Weight Obtained Via Standing scale (04/18/22 9:15 AM) Social History Social History Type Response Smoking Status 5-9 cigarettes (betw een 1/4 to 1/2 pack)/day in last 30 days entered on: 07/18/21 Sex
--- OUTSIDE RECORDS SUMMARY | 2023-04-19 20:25 | XMS_ITS | Continuity of Care Document ---
Author Name Unknown Organization [facility] ter Address [address] [place] [id number]- Care Team Providers Care Tube Balancer Name Role Phone [facility] Primary Care Physician Encounter [facility] [place] Date(s): 04/26/22 - 06/06/[address] [address] Attending Physician: Eddie Garcia MD Admitting Physician: Eddie Garcia MD Referring Physician: Eddie Garcia MD Allergies, Adverse Reactions, [...] 14:53:00 EDT, Inhaler, Route to Pharmacy Electronically, [id number], [id number], 188, cm, 07/18/21 14:52:00 EDT, [...] Refills, Maintenance, 03/16/20 16:23:00 EDT, Tablet, [facility]/pharmacy #[id number], 188, cm, 03/16/20 15:37:00 EDT, Height, 78.9, kg, 02/21... Start Date: 03/16/20 Stop Date: 04/15/20 Status: Ordered gabapentin 600 mg oral tablet 1 tablet, By Mouth, 3 times a day, # 42 tablet, 1 Refills, Maintenance, 03/16/20 16:23:00 EDT, [facility]/pharmacy #[id number], 188, cm, 03/16/20 15:37:00 EDT, [...] 07/18/21 14:53:00 EDT, Route to Pharmacy Electronically, [facility]/pharmacy #[id number], 188, cm, 07/18/21 14:52:00 EDT, [...] 07/18/21 14:53:00 EDT, Route to Pharmacy Electronically, [facility]/pharmacy #[id number], 188,cm, 07/18/21 14:52:00 EDT, Height, 77.5, kg, ... Start Date: 07/18/21 Status: Ordered program attendant program attendant, See Instructions, # 1 each, Refills 0, Tot. Refills 0, Maintenance, Dx psoas abscess, 01/27/17 14:56:45, Compound Start Date: 01/27/17 Status: Ordered Singulair 10 mg oral tablet 10 mg, 1, tablet, By Mouth, Daily at bedtime, # 90 tablet, Refills 3, Tot. Refills 3, Maintenance, 07/18/21 14:53:00 EDT, Route to Pharmacy Electronically, [facility]/pharmacy #[id number], 188, cm, 07/18/21 14:52:00 EDT, [...] Refills, Soft Stop, 01/17/22 15:12:00 EDT, Aerosol, [facility]/pharmacy #[id number], 188, cm, 07/18/21 14:52:00 EDT, Height, 77.5, kg, 04/24/21 9:38:00 EDT, Dry Weight Start Date: 01/17/22 Stop Date: 04/17/22 Status: Ordered Vraylar 6 mg oral capsule TAKE 1 CAPSULE BY MOUTH EVERY DAY WITH A MEAL Start Date: 6/22/20 Status: Ordered Problem List Condition Effective Dates [...] last 30 days entered on: 07/18/21 Sex Care Team Personnel Name: Clinton LOPEZ, Pushpa Address: [address] [place], [place] [address]
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
--- OUTSIDE RECORDS SUMMARY | 2023-04-19 20:25 | XMS_ITS | Continuity of Care Document ---
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 Name Role Phone Clinton LOPEZ, [facility] Primary Care Physician Encounter [facility] ACCT R [id number] Date(s): 04/05/21 - 04/12/21 [facility] Adult [address] [place] [address]- Attending Physician: Not on Staff, Attending MD Referring Physician: Chong LOPEZ, Reina Allergies, Adverse Reactions, Alerts Substance Reaction Severity Status nafcillin Rash Active lithium Active Remeron [D]Shortness of breath Activ e Geodon Active Immunizations Given and Recorded Vaccine Date Status Refusal Reason influenza virus vaccine, inactivated 10/01/18 Davin rded pneumococcal 23-valent vaccine 1 05/13/18 Given 1Result Comment: [facility] [id number] Medications Advair Diskus 500 mcg-50 mcg inhalation powder 1, puffs, Inhalation, 2 times a day, # 60 each, Refills 5, Tot. Refills 5, Maintenance, 09/25/20 9:05:00 EST, Inhaler, Route to Pharmacy Electronically, [id number], [facility]/pharmacy #[id number], 188, cm, 05/24/20 9:00:00 EDT, Height, 7... Start Date: 09/25/20 Stop Date: 03/24/21 Status: Ordered amLODIPine 10 mg oral tablet 1 tablet, By Mouth, Daily, # 90 tablet, 1 Refills, Maintenance, 01/18/21 12:28:00 EDT, [facility], 188, cm, 01/04/21 13:38:00 EDT, Height, 78.9, kg, 03/15/20 8:08:00 EDT, Dry Weight Start Date: 01/18/21 Status: Ordered clonazePAM 0.5 mg oral tablet 1 tablet = 0.5 mg, By Mouth, 3 times a day, PRN Anxiety, TAKE 1 TABLET BY MOUTH THREE TIMES A DAY NEEDED, # 30 tablet, 2 Refills, Maintenance, 03/16/20 16:23:00 EDT, Tablet, [facility]/pharmacy #0993, 188, cm, 03/16/20 15:37:00 EDT, Height, 78.9, kg, 02/21... Start Date: 03/16/20 Stop Date: 04/15/20 Status: Ordered gabapentin 600 mg oral tablet 1 tablet, By Mouth, 3 times a day, # 42 tablet, 1 Refills, Maintenance, 03/16/20 16:23:00 EDT, [facility]/pharmacy #0993, 188, cm, 03/16/20 15:37:00 EDT, [...] 08/16/19 13:22:41 EST, Route to Pharmacy Electronically, [id number], [facility]/pharmacy #0993 Start Date: 08/16/19 Stop Date: [...] 12/28/20 8:38:00 EDT, Route to Pharmacy Electronically, [facility] STORE 82672, 188, cm,10/20/20 12:25:00 EST, Height, 78.9, kg, 03/15/20 8... Start Date: 12/28/20 Status: Ordered audit reviewer audit reviewer, See Instructions, # 1 each, Refills 0, Tot. Refills 0, Maintenance, Dx psoas abscess, 01/27/17 14:56:45, Compound Start Date: 01/27/17 Status: Ordered Singulair 10 mg oral tablet 10 mg, By Mouth, Daily at bedtime, # 30 tablet, Refills 5, Tot. Refills 5, Maintenance, 08/01/20 11:32:00 EST, Route to Pharmacy Electronically, [facility]/pharmacy #0993, 188, cm, 05/24/20 9:00:00 EDT, [...] Refills, Soft Stop, 01/07/20 11:13:00 EDT, Aerosol, [facility]/pharmacy #0707, 188, cm, 08/16/19 12:53:00 EST, [...] oldest [Reference Range]: 1 Height 188 cm (04/05/21 1:02 PM) Social History Social History Type Response Smoking Status Never smoker; Tobacc o user in household: No entered on: 01/23/17 Sex
--- OUTSIDE RECORDS SUMMARY | 2023-04-19 20:25 | XMS_ITS | Continuity of Care Document ---
Author Name Unknown Organization [facility] Address [address] [address]- Care Team Providers Care Drive In Theater Attendant Name Role Phone Clinton LOPEZ, [facility] Primary Care Physician Encounter [facility] Date(s): 01/04/21 - 02/03/21 [facility] [address] [address] Attending Physician: Admtr, Manuel8 Admitting Physician: Admtr, ArNehal Referring Physician: Admtr, Ar8 Allergies, Adverse Reactions, Alerts Substance Reaction Severity Status nafcillin Rash Active lithium Active Remeron [D]Shortness of breath Activ e Geodon Active Immunizations Given and Recorded Vaccine Date Status Refusal Reason influenza virus vaccine, inactivated 10/01/18 Davin rded pneumococcal 23-valent vaccine 1 05/13/18 Given 1Result Comment: [facility] [id number] Medications Advair Diskus 500 mcg-50 mcg inhalation powder 1, puffs, Inhalation, 2 times a day, # 60 each, Refills 5, Tot. Refills 5, Maintenance, 09/25/20 9:05:00 EST, Inhaler, Route to Pharmacy Electronically, [id number], [facility]/pharmacy #0993, 188, cm, 05/24/20 9:00:00 EDT, Height, 7... Start Date: 09/25/20 Stop Date: 03/24/21 Status: Ordered amLODIPine 10 mg oral tablet 1 tablet, By Mouth, Daily, # 90 tablet, 1 Refills, Maintenance, 01/18/21 12:28:00 EDT, [facility], 188, cm, 01/04/21 13:38:00 EDT, Height, 78.9, kg, 03/15/20 8:08:00 EDT, Dry Weight Start Date: 01/18/21 Status: Ordered clonazePAM 0.5 mg oral tablet 1 tablet = 0.5 mg, By Mouth, 3 times a day, PRN Anxiety, TAKE 1 TABLET BY MOUTH THREE TIMES A DAY NEEDED, # 30 tablet, 2 Refills, Maintenance, 03/16/20 16:23:00 EDT, Tablet, [facility]/pharmacy #0993, 188, cm, 03/16/20 15:37:00 EDT, Height, 78.9, kg, 02/21... Start Date: 03/16/20 Stop Date: 04/15/20 Status: Ordered gabapentin 600 mg oral tablet 1 tablet, By Mouth, 3 times a day, # 42 tablet, 1 Refills, Maintenance, 03/16/20 16:23:00 EDT, [facility]/pharmacy #0993, 188, cm, 03/16/20 15:37:00 [...] 08/16/19 13:22:41 EST, Route to Pharmacy Electronically, [id number], [facility]/pharmacy #0993 Start Date: 08/16/19 Stop [...] 12/28/20 8:38:00 EDT, Route to Pharmacy Electronically, [facility] STORE [id number], 188, cm,10/20/20 12:25:00 EST, Height, 78.9, kg, 03/15/20 8... Start Date: 12/28/20 Status: Ordered corporate safety manager corporate safety manager, See Instructions, # 1 each, Refills 0, Tot. Refills 0, Maintenance, Dx psoas abscess, 01/27/17 14:56:45, Compound Start Date: 01/27/17 Status: Ordered Singulair 10 mg oral tablet 10 mg, By Mouth, Daily at bedtime, # 30 tablet, Refills 5, Tot. Refills 5, Maintenance, 08/01/20 11:32:00 EST, Route to Pharmacy Electronically, [facility]/pharmacy #0993, 188, cm, 05/24/20 9:00:00 [...] Refills, Soft Stop, 01/07/20 11:13:00 EDT, Aerosol, [facility]/pharmacy #0707, 188, cm, 08/16/19 12:53:00 [...]
--- OUTSIDE RECORDS SUMMARY | 2023-04-19 20:25 | XMS_ITS | Continuity of Care Document ---
Author Name Unknown Organization [facility] Address [address] [address]- Care Team Providers Care Shipmaster Name Role Phone Clinton LOPEZ, Push[facility] Primary Care Physician Encounter [facility] Date(s): 01/04/21 - 01/11/21 [facility] [address] [place] [address]- Attending Physician: Jimbo Rodriguez MD Referring Physician: Pushpa Alonzo MD Allergies, Adverse Reactions, Alerts Substance Reaction Severity Status nafcillin Rash Active lithium Active Remeron [D]Shortness of breath Activ e Geodon Active Immunizations Given and Recorded Vaccine Date Status Refusal Reason influenza virus vaccine, inactivated 10/01/18 Davin rded pneumococcal 23-valent vaccine 1 05/13/18 Given 1Result Comment: [facility] [id number] Medications Advair Diskus 500 mcg-50 mcg inhalation powder 1, puffs, Inhalation, 2 times a day, # 60 each, Refills 5, Tot. Refills 5, Maintenance, 09/25/20 9:05:00 EST, Inhaler, Route to Pharmacy Electronically, [id number], [facility], 188, cm, 05/24/20 9:00:00 EDT, Height, 7... Start Date: 09/25/20 Stop Date: 03/24/21 Status: Ordered amLODIPine 10 mg oral tablet 10 mg, 1, tablet, By Mouth, Daily, # 90 tablet, Refills 1, Tot. Refills 1, Maintenance, 07/26/20 9:09:00 EST, Route to Pharmacy Electronically, [facility]/pharmacy #0993, 188, cm, [...] Refills, Maintenance, 03/16/20 16:23:00 EDT, Tablet, [facility]/pharmacy #0993, 188, cm, 03/16/20 15:37:00 EDT, Height, 78.9, kg, 02/21... Start Date: 03/16/20 Stop Date: 04/15/20 Status: Ordered gabapentin 600 mg oral tablet 1 tablet, By Mouth, 3 times a day, # 42 tablet, 1 Refills, Maintenance, 03/16/20 16:23:00 EDT, [facility]/pharmacy #0993, 188, cm, [...] 08/16/19 13:22:41 EST, Route to Pharmacy Electronically, [id number], [facility]/pharmacy #0993 Start Date: [...] 12/28/20 8:38:00 EDT, Route to Pharmacy Electronically, [facility] STORE 38808, 188, cm,10/20/20 12:25:00 EST, Height, 78.9, kg, 03/15/20 8... Start Date: 12/28/20 Status: Ordered hotel general manager hotel general manager, See Instructions, # 1 each, Refills 0, Tot. Refills 0, Maintenance, Dx psoas abscess, 01/27/17 14:56:45, Compound Start Date: 01/27/17 Status: Ordered Singulair 10 mg oral tablet 10 mg, By Mouth, Daily at bedtime, # 30 tablet, Refills 5, Tot. Refills 5, Maintenance, 08/01/20 11:32:00 EST, Route to Pharmacy Electronically, [facility]/pharmacy #0993, 188, cm, [...] Refills, Soft Stop, 01/07/20 11:13:00 EDT, Aerosol, [facility]/pharmacy #0707, 188, cm, [...] oldest [Reference Range]: 1 Height 188 cm (01/04/21 1:38 PM) Weight 77.5 kg (01/04/21 1:38 PM) Body Mass Index [18.5-24.99] 21.93 (01/04/21 1:38 PM) Blood Pressure [90-138/55-84 mm Hg] 98/6 6mm Hg (01/04/21 1:38 PM) Weight Obtained Via Patient/family state d (01/04/21 1:38 PM) Social History Social History Type Response Smoking Status Never smoker; Tobacc o user in household: No entered on: 01/23/17 Sex
--- OUTSIDE RECORDS SUMMARY | 2023-04-19 20:25 | XMS_ITS | Continuity of Care Document ---
Author Name Unknown Organization [facility] Adult Address [address] [place] [address]- Care Team Providers Care Director Data Architecture Name Role Phone Clinton LOPEZ, [facility] Primary Care Physician Encounter [facility] Date(s): 07/19/21 - 08/18/21 [facility] [address] [place] [address]- Allergies, Adverse Reactions, Alerts Substance Reaction Severity [...] 14:53:00 EDT, Inhaler, Route to Pharmacy Electronically, [id number], [facility]/pharmacy #0957, 188, cm, 07/18/21 14:52:00 EDT, Height,... [...] 03/16/20 16:23:00 EDT, Tablet, [facility]/pharmacy #0993, 188, cm, 03/16/20 15:37:00 EDT, Height, 78.9, kg, 02/21... Start Date: 03/16/20 Stop Date: 04/15/20 Status: Ordered gabapentin 600 mg oral tablet 1 tablet, By Mouth, 3 times a day, # 42 tablet, 1 Refills, Maintenance, 03/16/20 16:23:00 EDT, [facility]/pharmacy #0993, 188, cm, 03/16/20 15:37:00 EDT, Height, [...] Route to Pharmacy Electronically, [facility]/pharmacy #0957, 188, cm, 07/18/21 14:52:00 EDT, Height, [...] Route to Pharmacy Electronically, [facility]/pharmacy #0957, 188,cm, 07/18/21 14:52:00 EDT, Height, 77.5, kg, ... Start Date: 07/18/21 Status: Ordered catering coordinator catering coordinator, See Instructions, # 1 each, Refills 0, Tot. Refills 0, Maintenance, Dx psoas abscess, 01/27/17 14:56:45, Compound Start Date: 01/27/17 Status: Ordered Singulair 10 mg oral tablet 10 mg, 1, tablet, By Mouth, Daily at bedtime, # 90 tablet, Refills 3, Tot. Refills 3, Maintenance, 07/18/21 14:53:00 EDT, Route to Pharmacy Electronically, [facility]/pharmacy #0957, 188, cm, 07/18/21 14:52:00 EDT, Height, [...] Refills, Soft Stop, 01/07/20 11:13:00 EDT, Aerosol, [facility]/pharmacy #0707, 188, cm, 08/16/19 12:53:00 EST, Height [...]
--- OUTSIDE RECORDS SUMMARY | 2023-04-19 20:25 | XMS_ITS | Continuity of Care Document ---
Author Name Unknown Organization [facility] ter Address [address] [place] [address]- Care Team Providers Care Drier Operator Helper Name Role Phone Pushpa Alonzo MD Primary Care Physician ( [phone] Encounter [facility] Date(s): 04/28/20 - 04/28/[address] [address]- [facility] Encounter Diagnosis Cellulitis, leg(Final) - 04/28/20 Discharge Disposition: A-D/C Home Attending Physician: Rom Turner MD Admitting Physician: Rom Turner MD Referring Physician: Not on Staff, Referring MD Allergies, Adverse Reactions, Alerts Substance Reaction Severity Status nafcillin Rash Active Remeron [D]Shortness of breath Activ e Geodon Active Immunizations Given and Recorded Vaccine Date Status Refusal Reason influenza virus vaccine, inactivated 10/01/18 Davin rded pneumococcal 23-valent vaccine 1 05/13/18 Given 1Result Comment: [facility] [id number] Medications Advair Diskus 500 mcg-50 mcg inhalation powder 1, puffs, Inhalation, 2 times a day, # 60 each, Refills 5, Tot. Refills 5, Maintenance, 01/31/20 14:25:00 EDT, Inhaler, Route to Pharmacy Electronically, [id number], [facility]/pharmacy #0993, 188, cm, 08/16/19 12:53:00 EST, Height Start Date: 01/31/20 Stop Date: 07/29/20 Status: Ordered amLODIPine 10 mg oral tablet 10 mg, 1, tablet, By Mouth, Daily, # 90 tablet, Refills 3, Tot. Refills 3, Maintenance, 08/16/19 13:22:42 EST, Route to Pharmacy Electronically, [id number], [facility]/pharmacy #0993 Start Date: 08/16/19 Stop Date: 08/10/20 Status: Ordered clonazePAM 0.5 mg oral tablet 1 tablet = 0.5 mg, By Mouth, 3 times a day, PRN Anxiety, TAKE 1 TABLET BY MOUTH THREE TIMES A DAY NEEDED, # 30 tablet, 2 Refills, Maintenance, 03/16/20 16:23:00 EDT, Tablet, [facility]/pharmacy #0993, 188, cm, 03/16/20 15:37:00 EDT, Height, 78.9, kg, 02/21... Start Date: 03/16/20 Stop Date: 04/15/20 Status: Ordered doxycycline hyclate 100 mg oral capsule 1 capsule = 100 mg, By Mouth, 2 times a day, for 10 days, # 20 capsule, 0 Refills, Acute 05/08/20 15:18:00 EDT, 04/28/20 15:18:00 EDT, Capsule, [facility]/pharmacy #0993, 188, cm, 03/16/20 19:44:00 EDT, Height, 78.9, kg, 03/15/20 8:08:00 EDT, Dry Weight Start Date: 04/28/20 Stop Date: 05/08/20 Status: Ordered gabapentin 600 mg oral tablet 1 tablet, By Mouth, 3 times a day, # 42 tablet, 1 Refills, Maintenance, 03/16/20 16:23:00 EDT, [facility]/pharmacy #0993, 188, cm, 03/16/20 15:37:00 EDT, Height, [...] 08/16/19 13:22:41 EST, Route to Pharmacy Electronically, [id number], [facility]/pharmacy #0993 Start Date: 08/16/19 Stop Date: 08/10/20 Status: Ordered nicotine 2 mg oral transmucosal gum = 2 mg, Chew, Every hour, PRN Other, for 6 week(s), Nicotine Cravings, # 160 each, 1 Refills, Acute06/08/20 16:24:00 EDT, 03/16/20 16:24:00 EDT, Gum, [facility]/pharmacy #0993, 188, cm, 03/16/20 15:37:00 EDT, Height, 78.9, kg, 03/15/20 8:08:00 EDT, Dry Weight Start Date: 03/16/20 Stop Date: 06/08/20 Status: Ordered natural foods clerk natural foods clerk, See Instructions, # 1 each, Refills 0, Tot. Refills 0, Maintenance, Dx psoas abscess, 01/27/17 14:56:45, Compound Start Date: 01/27/17 Status: Ordered SEROquel 25 mg oral tablet 12.5 mg, 0.5, tablet, By Mouth, Daily at bedtime, PRN, # 15 tablet, Refills 0, Tot. Refills 0, Maintenance, Sleep, 03/16/20 16:24:00 EDT, Route to Pharmacy Electronically, [facility]/pharmacy #0993, 188, cm, 03/16/20 15:37:00 EDT, Height, 78.9, kg, 03/15/20... Start Date: 03/16/20 Stop Date: 04/15/20 Status: Ordered Singulair 10 mg oral tablet 10 mg, By Mouth, Daily at bedtime, # 30 tablet, Refills 5, Tot. Refills 5, Maintenance, 02/03/20 11:32:00 EDT, Route to Pharmacy Electronically, [facility]/pharmacy #0993, 188, cm, 02/02/20 8:48:00 EDT, Height Start Date: 02/03/20 Stop Date: 08/01/20 Status: Ordered Ventolin HFA 108 mcg/inh inhalation aerosol with adapter 1 puffs, By Mouth, Daily, PRN for wheezing, # 18 Gm, 5 Refills, Soft Stop, 01/07/20 11:13:00 EDT, Aerosol, [facility]/pharmacy #0707, 188, cm, 08/16/19 12:53:00 EST, Height [...] Range]: 1 2 Oxygen Saturation [94-100 %] 100 % (04/28/20 3:29 PM) 100 % (04/28/20 12:37 PM) Pulse Rate [55-90 bpm] 58 bpm (04/28/20 3:29 PM) 67 bpm (04/28/20 12:37 PM) Blood Pressure [90-138/55-84 mm Hg] 129/ 82mm Hg (04/28/20 3:29 PM) 132/69mm Hg (04/28/20 12:37 PM) Respiratory Rate [16-30 br/min] 16 br/mi n (04/28/20 3:29 PM) 18 br/min (04/28/20 12:37 PM) Temperature [96.8-100.4 DegF] 98.2 DegF (04/28/20 12:37 PM) Mode of Delivery (Oxygen) Room air (04/28/20 3:29 PM) Room air (04/28/20 12:37 PM) Blood pressure sites Arm, right (04/28/20 3:29 PM) Arm, right (04/28/20 12:37 PM) Temperature Route Oral (04/28/20 12:37 PM) Social History Social History Type Response Smoking Status Never smoker; Tobacc o user in household: No entered on: 01/23/17 Sex
--- OUTSIDE RECORDS SUMMARY | 2023-04-19 20:25 | XMS_ITS | Continuity of Care Document ---
Author Name Unknown Organization [facility] Adult Address [address] [place] [address]- Care Team Providers Care On Site Manager Name Role Phone Clinton LOPEZ, [facility] Primary Care Physician [place] [facility] [place](s): 04/19/20 - 05/19/20 [facility] Adult [address] [place] [address]- [facility] Allergies, Adverse Reactions, Alerts Substance Reaction Severity Status nafcillin Rash Active Remeron [D]Shortness of breath Activ e Geodon Active Immunizations Given and Recorded Vaccine Date Status Refusal Reason influenza virus vaccine, inactivated 10/01/18 Davin rded pneumococcal 23-valent vaccine 1 05/13/18 Given 1Result Comment: [facility] [id number] Medications Advair Diskus 500 mcg-50 mcg inhalation powder 1, puffs, Inhalation, 2 times a day, # 60 each, Refills 5, Tot. Refills 5, Maintenance, 01/31/20 14:25:00 EDT, Inhaler, Route to Pharmacy Electronically, [id number], [facility]/pharmacy #[id number], 188, cm, 08/16/19 12:53:00 EST, Height Start Date: 01/31/20 Stop Date: 07/29/20 Status: Ordered amLODIPine 10 mg oral tablet 10 mg, 1, tablet, By Mouth, Daily, # 90 tablet, Refills 3, Tot. Refills 3, Maintenance, 08/16/19 13:22:42 EST, Route to Pharmacy Electronically, [id number], [facility]/pharmacy #[id number] Start Date: 08/16/19 Stop Date: 08/10/20 Status: Ordered clonazePAM 0.5 mg oral tablet 1 tablet = 0.5 mg, By Mouth, 3 times a day, PRN Anxiety, TAKE 1 TABLET BY MOUTH THREE TIMES A DAY NEEDED, # 30 tablet, 2 Refills, Maintenance, 03/16/20 16:23:00 EDT, Tablet, [facility]/pharmacy #[id number], 188, cm, 03/16/20 15:37:00 EDT, Height, 78.9, kg, 2... Start Date: 03/16/20 Stop Date: 04/15/20 Status: Ordered gabapentin 600 mg oral tablet 1 tablet, By Mouth, 3 times a day, # 42 tablet, 1 Refills, Maintenance, 03/16/20 16:23:00 EDT, [facility]/pharmacy #[id number], 188, cm, 03/16/20 [...] 08/16/19 13:22:41 EST, Route to Pharmacy Electronically, [id number], [facility]/pharmacy #[id number] Start Date: 08/16/19 Stop Date: 08/10/20 Status: Ordered nicotine 2 mg oral transmucosal gum = 2 mg, Chew, Every hour, PRN Other, for 6 week(s), Nicotine Cravings, # 160 each, 1 Refills, Acute06/08/20 16:24:00 EDT, 03/16/20 16:24:00 EDT, Gum, [facility]/pharmacy #[id number], 188, cm, 03/16/20 15:37:00 EDT, Height, 78.9, kg, 03/15/20 8:08:00 EDT, Dry Weight Start Date: 03/16/20 Stop Date: 06/08/20 Status: Ordered integrated circuits inspector integrated circuits inspector, See Instructions, # 1 each, Refills 0, Tot. Refills 0, Maintenance, Dx psoas abscess, 01/27/17 14:56:45, Compound Start Date: 01/27/17 Status: Ordered SEROquel 25 mg oral tablet 12.5 mg, 0.5, tablet, By Mouth, Daily at bedtime, PRN, # 15 tablet, Refills 0, Tot. Refills 0, Maintenance, Sleep, 03/16/20 16:24:00 EDT, Route to Pharmacy Electronically, [facility]/pharmacy #[id number], 188, cm, 03/16/20 15:37:00 EDT, Height, 78.9, kg, 03/15/20... Start Date: 03/16/20 Stop Date: 04/15/20 Status: Ordered Singulair 10 mg oral tablet 10 mg, By Mouth, Daily at bedtime, # 30 tablet, Refills 5, Tot. Refills 5, Maintenance, 02/03/20 11:32:00 EDT, Route to Pharmacy Electronically, [facility]/pharmacy #[id number], 188, cm, 02/02/20 8:48:00 EDT, Height Start Date: 02/03/20 Stop Date: 08/01/20 Status: Ordered Ventolin HFA 108 mcg/inh inhalation aerosol with adapter 1 puffs, By Mouth, Daily, PRN for wheezing, # 18 Gm, 5 Refills, Soft Stop, 01/07/20 11:13:00 EDT, Aerosol, [facility]/pharmacy #[id number], 188, cm, 08/16/19 12:53:00 [...]
--- OUTSIDE RECORDS SUMMARY | 2023-04-19 20:25 | XMS_ITS | Continuity of Care Document ---
Author Name Unknown Organization [facility] Adult Address [address] [place] [address]- Care Team Providers Care Basket Hand Weaver Name Role Phone Clinton LOPEZ, [facility] Primary Care Physician [place] [facility] [place] 09/23/20 [facility] Adult [address] [place] [address]- Attending Physician: Pushpa Alonzo MD Allergies, Adverse [...] 14:25:00 EDT, Inhaler, Route to Pharmacy Electronically, [id number], [facility]/pharmacy #[id number], 188, cm, 08/16/19 12:53:00 EST, Height Start Date: 01/31/20 Stop Date: 07/29/20 Status: Ordered amLODIPine 10 mg oral tablet 10 mg, 1, tablet, By Mouth, Daily, # 90 tablet, Refills 1, Tot. Refills 1, Maintenance, 07/26/20 9:09:00 EST, Route to Pharmacy Electronically, [facility]/pharmacy #[id number], 188, cm, 05/24/20 9:00:00 EDT, Height, 78.9, kg, 03/15/20 8:08:00 EDT, Dry Weight Start Date: 07/26/20 Stop Date: 01/22/21 Status: Ordered clonazePAM 0.5 mg oral tablet 1 tablet = 0.5 mg, By Mouth, 3 times a day, PRN Anxiety, TAKE 1 TABLET BY MOUTH THREE TIMES A DAY NEEDED, # 30 tablet, 2 Refills, Maintenance, 03/16/20 16:23:00 EDT, Tablet, [facility]/pharmacy #[id number], 188, cm, 03/16/20 15:37:00 EDT, Height, 78.9, kg, 02/21... Start Date: 03/16/20 Stop Date: 04/15/20 Status: Ordered gabapentin 600 mg oral tablet 1 tablet, By Mouth, 3 times a day, # 42 tablet, 1 Refills, Maintenance, 03/16/20 16:23:00 EDT, [facility]/pharmacy #[id number], 188, cm, 03/16/20 15:37:00 EDT, [...] 08/16/19 13:22:41 EST, Route to Pharmacy Electronically, [id number], [facility]/pharmacy #[id number] Start Date: 08/16/19 Stop Date: 08/10/20 Status: Ordered health education teacher health education teacher, See Instructions, # 1 each, Refills 0, Tot. Refills 0, Maintenance, Dx psoas abscess, 01/27/17 14:56:45, Compound Start Date: 01/27/17 Status: Ordered SEROquel 25 mg oral tablet 12.5 mg, 0.5, tablet, By Mouth, Daily at bedtime, PRN, # 45 tablet, Refills 0, Tot. Refills 0, Maintenance, Sleep, 06/07/20 11:58:00 EDT, Route to Pharmacy Electronically, [facility]/pharmacy #[id number], 188, cm, 05/24/20 9:00:00 EDT, Height, 78.9, kg, 03/15/20 8... Start Date: 06/07/20 Stop Date: 09/05/20 Status: Ordered Singulair 10 mg oral tablet 10 mg, By Mouth, Daily at bedtime, # 30 tablet, Refills 5, Tot. Refills 5, Maintenance, 08/01/20 11:32:00 EST, Route to Pharmacy Electronically, [facility]/pharmacy #[id number], 188, cm, 05/24/20 9:00:00 EDT, Height, 78.9, kg, 03/15/20 8:08:00 EDT, Dry Weight Start Date: 08/01/20 Stop Date: 01/28/21 Status: Ordered Ventolin HFA 108 mcg/inh inhalation aerosol with adapter 1 puffs, By Mouth, Daily, PRN for wheezing, # 18 Gm, 5 Refills, Soft Stop, 01/07/20 11:13:00 EDT, Aerosol, [facility]/pharmacy #[id number], 188, cm, 08/16/19 12:53:00 EST, [...]
--- OUTSIDE RECORDS SUMMARY | 2023-04-19 20:25 | XMS_ITS | Continuity of Care Document ---
Author Name Unknown Organization [facility] Adult Address [address] [place] [address]- Care Team Providers Care Chairperson Anesthesiology Name Role Phone [facility]n [facility] Encounter [facility] [place] Date(s): 01/10/20 - 01/17/20 [facility] Adult [address] [place] [address]- [facility] Encounter Diagnosis Asthma(Discharge Diagnosis) - 01/10/20 Bipolar disorder(Discharge Diagnosis) - 01/10/20 Acute URI(Discharge Diagnosis) - 01/10/20 Suspected 2019-nCoV infection(Discharge Diagnosis) - 01/10/20 Attending Physician: Clinton LOPEZ, [facility] Allergies, Adverse Reactions, Alerts Substance Reaction Severity Status nafcillin Rash Active Remeron [D]Shortness of breath Activ e Geodon Active Immunizations Given and Recorded Vaccine Date Status Refusal Reason influenza virus vaccine, inactivated 10/01/18 Davin rded pneumococcal 23-valent vaccine 1 05/13/18 Given 1Result Comment: [facility] [id number] Medications Advair Diskus 500 mcg-50 mcg inhalation powder 1, puffs, Inhalation, 2 times a day, # 60 each, Refills 5, Tot. Refills 5, Maintenance, 07/27/19 14:47:49 EST, Inhaler, Route to Pharmacy Electronically, [id number], [facility]/pharmacy #[id number] Start Date: 07/27/19 Stop Date: 01/23/20 Status: Ordered allopurinol 300 mg oral tablet See Instructions, TAKE 1 TABLET BY MOUTH EVERY DAY, # 30 tablet, Refills 2, Tot. Refills 2, Maintenance, 08/15/19 12:53:22 EST, Instructions Replace Required Details, Route to Pharmacy Electronically, [id number], [facility]/pharmacy... Start Date: 08/15/19 Status: Ordered amLODIPine 10 mg oral tablet 10 mg, 1, tablet, By Mouth, Daily, # 90 tablet, Refills 3, Tot. Refills 3, Maintenance, 08/16/19 13:22:42 EST, Route to Pharmacy Electronically, [id number], [facility]/pharmacy #[id number] Start Date: 08/16/19 Stop Date: 08/10/20 Status: Ordered atorvastatin 40 mg oral tablet 1 tablet = 40 mg, By Mouth, Daily, # 30 tablet, 5 Refills, Maintenance, 09/13/19 10:10:00 EST, Tablet, [facility]/pharmacy #[id number], 188, cm, 08/16/19 12:53:00 EST, Height Start Date: 09/13/19 Stop Date: 03/11/20 Status: Ordered atorvastatin 40 mg oral tablet 1 tablet = 40 mg, By Mouth, Daily, for 30 days, # 30 tablet, 5 Refills, Physician Stop 04/11/20 12:49:00 EDT, 10/14/19 12:49:00 EST, [facility]/pharmacy #[id number], 188, cm, 08/16/19 12:53:00 EST, Height Start Date: 10/14/19 Stop Date: 04/11/20 Status: Ordered clonazePAM 0.5 mg oral tablet 1 tablet = 0.5 mg, By Mouth, 4 times a day, 0 Refills, Maintenance, 01/23/17 8:38:49 Start Date: 01/23/17 Status: Ordered Flonase 50 mcg/inh nasal spray 1 sprays, Nares, Both, Daily in AM, # 16 Gm, 2 Refills, Maintenance, 08/18/19 8:49:23 EST, [place], 1sprays Nares, Both Daily in AM,x30 days Start Date: 08/18/19 Stop Date: 11/16/19 Status: Ordered gabapentin 600 mg oral tablet 1 tablet, By Mouth, 3 times a day, # 270 tablet, 0 Refills, Maintenance, 11/24/19 13:07:00 EST, [facility]/pharmacy #[id number], 188, cm, 08/16/19 12:53:00 EST, Height [...] 08/16/19 13:22:41 EST, Route to Pharmacy Electronically, [id number], [facility]/pharmacy #[id number] Start Date: 08/16/19 Stop Date: 08/10/20 Status: Ordered naproxen 500 mg oral tablet 1 tablet, By Mouth, 2 times a day, PRN NEEDED, MODERATE PAIN., # 60 tablet, 0 Refills, Acute, 09/13/19 10:10:00 EST, [facility] STORE [id number], 188, cm, 08/16/19 12:53:00 EST, Height Start Date: 09/13/19 Status: Ordered omeprazole 20 mg oral enteric coated capsule 1 capsule = 20 mg, By Mouth, Daily, Before a meal., # 30 capsule, 2 Refills, Soft Stop, 10/14/19 9:49:00 EST, [facility]/pharmacy #[id number], 188, cm, 08/16/19 12:53:00 EST, Height Start Date: 10/14/19 Stop Date: 01/12/20 Status: Ordered oven dumper oven dumper, See Instructions, # 1 each, Refills 0, Tot. Refills 0, Maintenance, Dx psoas abscess, 01/27/17 14:56:45, Compound Start Date: 01/27/17 Status: Ordered Singulair 10 mg oral tablet 10 mg, By Mouth, Daily at bedtime, # 30 tablet, Refills 5, Tot. Refills 5, Maintenance, 02/22/19 11:54:41 EDT, Route to Pharmacy Electronically, [id number], [facility]/pharmacy #[id number] Start Date: 02/22/19 Stop Date: 08/21/19 Status: Ordered Ventolin HFA 108 mcg/inh inhalation aerosol with adapter 1 puffs, By Mouth, Daily, PRN for wheezing, # 18 Gm, 5 Refills, Soft Stop, 01/07/20 11:13:00 EDT, Aerosol, [facility]/pharmacy #[id number], 188, cm, 08/16/19 12:53:00 EST, Height Start Date: 01/07/20 Stop Date: 07/05/20 Status: Ordered Problem List Condition Effective Dates Status Health Status Inform ant Aneurysm of descending thora cic aorta(Confirmed) Active Anxiety(Confirmed) Active Asthma(Confirmed) Active Bipolar disorder(Confirmed) Active Dyslipidemia(Confirmed) Active GERD (gastroesophageal reflu x disease)(Confirmed) Active Gout(Confirmed) Active Hyperlipidemia(Confirmed) Active HTN (hypertension)(Confirmed) Active Rheumatoid arthritis(Confirmed) Active Substance abuse(Confirmed) Active HCV (hepatitis C virus)(Confirmed) Active Diagnosis Diagnosis Type Effective Dates Health Status Cl inical Service Informant Asthma Discharge Diagnosis 01/10/20 Bipolar disorder Discharge Diagnosis 01/10/20 Acute URI Discharge Diagnosis 01/10/20 Suspected 2019-nCoV infection Discharge Diagnosis 01/10/20 Social History Social History Type Response Smoking Status Never smoker; Tobacc o user in household: No entered on: 01/23/17 Sex
--- OUTSIDE RECORDS SUMMARY | 2023-04-19 20:25 | XMS_ITS | Continuity of Care Document ---
Author Name Unknown Organization [facility] ter Address [address] [place] [id number]- Care Team Providers Care Paper Rewinder Name Role Phone Clinton LOPEZ, [facility] Primary Care Physician Encounter [facility] [place] Date(s): 04/23/21 - 04/24/[address] [address]- Encounter Diagnosis Erosive osteoarthritis(Final) - 04/24/21 Discharge Disposition: A-D/C Home Attending Physician: Isaak Joseph MD Admitting Physician: Isaak Joseph MD Referring Physician: Not on Staff, Referring [...] 9:05:00 EST, Inhaler, Route to Pharmacy Electronically, [id number], [facility]/pharmacy #[id number], 188, cm, 05/24/20 9:00:00 EDT, Height, 7... Start Date: 09/25/20 Stop Date: 03/24/21 Status: Ordered amLODIPine 10 mg oral tablet 1 tablet, By Mouth, Daily, # 90 tablet, 1 Refills, Maintenance, 01/18/21 12:28:00 EDT, [id number], 188, cm, 01/04/21 13:38:00 EDT, Height, 78.9, kg, 03/15/20 8:08:00 EDT, Dry Weight Start Date: 01/18/21 Status: Ordered clonazePAM 0.5 mg oral tablet 1 tablet = 0.5 mg, By Mouth, 3 times a day, PRN Anxiety, TAKE 1 TABLET BY MOUTH THREE TIMES A DAY NEEDED, # 30 tablet, 2 Refills, Maintenance, 03/16/20 16:23:00 EDT, Tablet, [facility]/pharmacy #[id number], 188, cm, 03/16/20 15:37:00 EDT, Height, 78.9, kg, 2... Start Date: 03/16/20 Stop Date: 04/15/20 Status: Ordered gabapentin 600 mg oral tablet 1 tablet, By Mouth, 3 times a day, # 42 tablet, 1 Refills, Maintenance, 03/16/20 16:23:00 EDT, [facility]/pharmacy #[id number], 188, cm, 03/16/20 15:37:00 EDT, [...] 08/16/19 13:22:41 EST, Route to Pharmacy Electronically, [id number], [facility]/pharmacy #[id number] Start Date: 08/16/19 Stop Date: [...] 12/28/20 8:38:00 EDT, Route to Pharmacy Electronically, [facility], 188, cm,10/20/20 12:25:00 EST, Height, 78.9, kg, 03/15/20 8... Start Date: 12/28/20 Status: Ordered schedule checker schedule checker, See Instructions, # 1 each, Refills 0, Tot. Refills 0, Maintenance, Dx psoas abscess, 01/27/17 14:56:45, Compound Start Date: 01/27/17 Status: Ordered Singulair 10 mg oral tablet 10 mg, By Mouth, Daily at bedtime, # 30 tablet, Refills 5, Tot. Refills 5, Maintenance, 08/01/20 11:32:00 EST, Route to Pharmacy Electronically, [facility]/pharmacy #[id number], 188, cm, 05/24/20 9:00:00 EDT, [...] Refills, Soft Stop, 01/07/20 11:13:00 EDT, Aerosol, [facility]/pharmacy #[id number], 188, cm, 08/16/19 12:53:00 EST, [...] Exam Date Time Procedure Performing Provider Status 04/24/21 9:22 AM Shoulder Min 2 Views Right Erica Barahona enoch; Auth (Verified) Notes: (Shoulder Min 2 Views Right) Reason For Exam: with Pain;Trauma RESULT: Shoulder Min 2 Views Right Shoulder Min 2 Views Right, 3 views Hx of Present Illness: pain under R am x 1 wk; Reason: Trauma; with Pain; Clinical Question(s): Fracture COMPARISON: CT of the chest 05/13/2020 FINDINGS: Abnormal configuration of the distal right clavicle similar to the topogram of the 05/13/2020 CT scan, consistent with an old fracture. No other fracture or dislocation is apparent. Bone mineralization is normal. There is degenerative spurring along the inferior margin of the clinoid. The glenohumeral space is narrowed. The right AC joint appears grossly intact. There is an abnormal configuration of the most distal portion of the right clavicle consistent with an old healed fracture. No calcification of the rotator cuff. IMPRESSION: No acute abnormality. Osteoarthritis of the right glenohumeral joint. Old fracture of the most distal portion of the right clavicle, consistent with abnormal appearance apparent in the 05/13/2020 CT scan. WSN: [id number] Ordering Physician: Becca Holland Dictated By: Eddie Perales MD Dictated Date/Time: 04/24/21 9:44 am Reviewed By: Eddie Perales MD Signed By: Eddie Perales MD Signed Date/Time: 04/24/21 9:44 am Transcribed By: JAMES Transcribed Date/Time: 04/24/21 9:38 am Vital Signs Most recent to oldest [Reference Range]: 1 2 3 Weight 77.5 kg (04/24/21 9:38 AM) 77.5 kg (04/23/21 10:55 PM) Oxygen Saturation [94-100 %] 98 % (04/24/21 9:38 AM) 99 % (04/24/21 6:13 AM) 100 % (04/24/21 1:35 AM) Pulse Rate [55-90 bpm] 56 bpm (04/24/21 9:38 AM) 56 bpm (04/24/21 6:13 AM) 55 bpm (04/24/21 1:35 AM) Blood Pressure [90-138/55-84 mm Hg] 141/79mm Hg *H* (04/24/21 9:38 AM) 110/65mm Hg (04/24/21 6:13 AM) 114/71mm Hg (04/24/21 1:35 AM) Respiratory Rate [16-30 br/min] 16 br/min (04/24/21 9:38 AM) 18 br/min (04/24/21 6:13 AM) 16 br/min (04/24/21 1:35 AM) Temperature [96.8-100.4 DegF] 97.8 DegF (04/24/21 9:38 AM) 97.6 DegF (04/24/21 6:13 AM) 98.0 DegF (04/24/21 1:35 AM) Mode of Delivery (Oxygen) Room air (04/24/21 9:38 AM) Room air (04/24/21 6:13 AM) Room air (04/24/21 1:35 AM) Blood pressure sites Arm, left (04/24/21 9:38 AM) Arm, left (04/23/21 10:55 PM) Temperature Route Oral (04/24/21 9:38 AM) Oral (04/24/21 6:13 AM) Oral (04/24/21 1:35 AM) Dry Weight 77.5 kg (04/24/21 9:38 AM) 77.5 kg (04/23/21 10:55 PM) Social History Social History Type Response Smoking Status Never smoker; Tobacc o user in household: No entered on: 01/23/17 Sex
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
--- OUTSIDE RECORDS SUMMARY | 2023-04-19 20:25 | XMS_ITS | Continuity of Care Document ---
Author Name Unknown Organization [facility] Adult Address [address] [place] [address]- Care Team Providers Care Talent Development Director Name Role Phone Clinton LOPEZ, [facility] Primary Care Physician Encounter [facility] [place] Date(s): 07/19/21 - 07/26/21 [facility] Adult [address] [place] [address]- Attending Physician: Not on Staff, Attending MD [...] 14:53:00 EDT, Inhaler, Route to Pharmacy Electronically, [id number], [id number], 188, cm, 07/18/21 14:52:00 EDT, Height,... Start Date: 07/18/21 Stop Date: 07/13/22 Status: Ordered amLODIPine 10 mg oral tablet 1 tablet, By Mouth, Daily, # 90 tablet, 3 Refills, Maintenance, 07/18/21 14:53:00 EDT, [facility], 188, cm, 07/18/21 14:52:00 EDT, Height, 77.5, kg, 08/03/21 9:38:00 EDT, Dry Weight Start Date: 07/18/21 Status: Ordered clonazePAM 0.5 mg oral tablet 1 tablet = 0.5 mg, By Mouth, 3 times a day, PRN Anxiety, TAKE 1 TABLET BY MOUTH THREE TIMES A DAY NEEDED, # 30 tablet, 2 Refills, Maintenance, 03/16/20 16:23:00 EDT, Tablet, [facility]/pharmacy #[id number], 188, cm, 03/16/20 15:37:00 EDT, Height, 78.9, kg, 02/21... Start Date: 03/16/20 Stop Date: 04/15/20 Status: Ordered gabapentin 600 mg oral tablet 1 tablet, By Mouth, 3 times a day, # 42 tablet, 1 Refills, Maintenance, 03/16/20 16:23:00 EDT, [facility]/pharmacy #0993, 188, cm, 03/16/20 15:37:00 EDT, [...] 07/18/21 14:53:00 EDT, Route to Pharmacy Electronically, [facility]/pharmacy #0957, 188, cm, 07/18/21 14:52:00 EDT, Height, [...] 07/18/21 14:53:00 EDT, Route to Pharmacy Electronically, [facility]/pharmacy #[id number], 188,cm, 07/18/21 14:52:00 EDT, Height, 77.5, kg, ... Start Date: 07/18/21 Status: Ordered senior accounting clerk senior accounting clerk, See Instructions, # 1 each, Refills 0, Tot. Refills 0, Maintenance, Dx psoas abscess, 01/27/17 14:56:45, Compound Start Date: 01/27/17 Status: Ordered Singulair 10 mg oral tablet 10 mg, 1, tablet, By Mouth, Daily at bedtime, # 90 tablet, Refills 3, Tot. Refills 3, Maintenance, 07/18/21 14:53:00 EDT, Route to Pharmacy Electronically, [facility]/pharmacy #[id number], 188, cm, 07/18/21 14:52:00 EDT, Height, [...] Refills, Soft Stop, 01/07/20 11:13:00 EDT, Aerosol, [facility]/pharmacy #0707, 188, cm, 08/16/19 12:53:00 EST, [...]
--- OUTSIDE RECORDS SUMMARY | 2023-04-19 20:25 | XMS_ITS | Continuity of Care Document ---
Author Name Unknown Organization [facility] Adult Address [address] [place] [address]- Care Team Providers Care Diorama Model Maker Name Role Phone Clinton [facility]OPE[facility], [facility] Encounter [facility] [place] ACCT R [id number] Date(s): 05/22/20 - 05/29/[address] [facility] Adult [address] [place] [address]- [facility] Attending Physician: Pushpa Alonzo MD Allergies, Adverse Reactions, Alerts Substance Reaction Severity Status nafcillin Rash Active Remeron [D]Shortness of breath Activ e Geodon Active Immunizations Given and Recorded Vaccine Date Status Refusal Reason influenza virus vaccine, inactivated 10/01/18 Davin rded pneumococcal 23-valent vaccine 1 05/13/18 Given 1Result Comment: [facility] [id number] Medications Advair Diskus 500 mcg-50 mcg inhalation powder 1, puffs, Inhalation, 2 times a day, # 60 each, Refills 5, Tot. Refills 5, Maintenance, 01/31/20 14:25:00 EDT, Inhaler, Route to Pharmacy Electronically, [id number], [facility]/pharmacy #[id number], 188, cm, 08/16/19 12:53:00 EST, Height Start Date: 01/31/20 Stop Date: 07/29/20 Status: Ordered amLODIPine 10 mg oral tablet 10 mg, 1, tablet, By Mouth, Daily, # 90 tablet, Refills 3, Tot. Refills 3, Maintenance, 08/16/19 13:22:42 EST, Route to Pharmacy Electronically, [id number], [facility]/pharmacy #[id number] Start [...] 9:39:00 EDT, [facility], [facility] 08/16/19 13:22:41 EST, Route to Pharmacy Electronically, [id number], [facility]/pharmacy #[id number] Start Date: 08/16/19 Stop Date: 08/10/20 Status: Ordered nicotine 2 mg oral transmucosal gum = 2 mg, Chew, Every hour, PRN Other, for 6 week(s), Nicotine Cravings, # 160 each, 1 Refills, Acute06/08/20 16:24:00 EDT, 03/16/20 16:24:00 EDT, Gum, [facility]/pharmacy #[id number], 188, cm, 03/16/20 15:37:00 EDT, Height, 78.9, kg, 03/15/20 8:08:00 EDT, Dry Weight Start Date: 03/16/20 Stop Date: 06/08/20 Status: Ordered contact centre supervisor contact centre supervisor, See Instructions, # 1 each, Refills 0, Tot. Refills 0, Maintenance, Dx psoas abscess, 01/27/17 14:56:45, Compound Start Date: 01/27/17 Status: Ordered SEROquel 25 mg oral tablet 12.5 mg, 0.5, tablet, By Mouth, Daily at bedtime, PRN, # 15 tablet, Refills 0, Tot. Refills 0, Maintenance, Sleep, 05/24/20 9:41:00 EDT, Route to Pharmacy Electronically, [facility]/pharmacy #[id number], 188, cm,05/24/20 9:00:00 EDT, Height, 78.9, kg, 03/15/20 8:... Start Date: 05/24/20 Stop Date: 06/23/20 Status: Ordered Singulair 10 mg oral tablet 10 mg, By Mouth, Daily at bedtime, # 30 tablet, Refills 5, Tot. Refills 5, Maintenance, 02/03/20 11:32:00 EDT, Route to Pharmacy Electronically, [facility]/pharmacy #[id number], 188, cm, 02/02/20 8:48:00 EDT, Height [...] oldest [Reference Range]: 1 Height 188 cm (05/22/20 12:34 PM) Social History Social History Type Response Smoking Status Never smoker; Tobacc o user in household: No entered on: 01/23/17 Sex
--- OUTSIDE RECORDS SUMMARY | 2023-04-19 20:25 | XMS_ITS | Continuity of Care Document ---
Author Name Unknown Organization [facility] Adult Address [address] [place] [address]- Care Team Providers Care Irrigation Teacher Name Role Phone Clinton LOPEZ, [facility] Primary Care Physician Encounter [facility] [place] ACCT R [id number] Date(s): 10/20/20 - 10/27/20 [facility] Adult [address] [place] [address]- Attending Physician: Pushpa Alonzo MD Allergies, Adverse Reactions, Alerts Substance Reaction Severity Status nafcillin Rash Active Remeron [D]Shortness of breath Activ e Geodon Active Immunizations Given and Recorded Vaccine Date Status Refusal Reason influenza virus vaccine, inactivated 10/01/18 Davin rded pneumococcal 23-valent vaccine 1 05/13/18 Given 1Result Comment: [facility] [id number] Medications Advair Diskus 500 mcg-50 mcg inhalation powder 1, puffs, Inhalation, 2 times a day, # 60 each, Refills 5, Tot. Refills 5, Maintenance, 09/25/20 9:05:00 EST, Inhaler, Route to Pharmacy Electronically, [id number], [facility]/pharmacy #[id number], 188, cm, 05/24/20 9:00:00 EDT, Height, 7... Start Date: 09/25/20 Stop Date: 03/24/21 Status: Ordered amLODIPine 10 mg oral tablet 10 mg, 1, tablet, By Mouth, Daily, # 90 tablet, Refills 1, Tot. Refills 1, Maintenance, 07/26/20 9:09:00 EST, [facility], [id number], 188, cm, 05/24/20 9:00:00 EDT, Height, 78.9, kg, 06/24/20 8:08:00 EDT, Dry Weight Start Date: 07/26/20 Stop Date: 01/22/21 Status: Ordered clonazePAM 0.5 mg oral tablet 1 tablet = 0.5 mg, By Mouth, 3 times a day, PRN Anxiety, TAKE 1 TABLET BY MOUTH THREE TIMES A DAY NEEDED, # 30 tablet, 2 Refills, Maintenance, 03/16/20 16:23:00 EDT, Tablet, [facility]/pharmacy #[id number], 188, cm, 03/16/20 15:37:00 EDT, Height, 78.9, kg, 02/21... Start Date: 03/16/20 Stop Date: 04/15/20 Status: Ordered gabapentin 600 mg oral tablet 1 tablet, By Mouth, 3 times a day, # 42 tablet, 1 Refills, Maintenance, 03/16/20 16:23:00 EDT, [facility]/pharmacy #[id number], 188, cm, 03/16/20 15:37:00 [...] 08/16/19 13:22:41 EST, Route to Pharmacy Electronically, [id number], [facility]/pharmacy #[id number] Start Date: 08/16/19 Stop Date: 08/10/20 Status: Ordered procedures analyst procedures analyst, See Instructions, # 1 each, Refills 0, Tot. Refills 0, Maintenance, Dx psoas abscess, 01/27/17 14:56:45, Compound Start Date: 01/27/17 Status: Ordered SEROquel 25 mg oral tablet 12.5 mg, 0.5, tablet, By Mouth, Daily at bedtime, PRN, # 45 tablet, Refills 0, Tot. Refills 0, Maintenance, Sleep, 10/02/20 15:34:00 EST, Route to Pharmacy Electronically, [facility]/pharmacy #[id number], 188, cm, 05/24/20 9:00:00 EDT, Height, 78.9, kg, 03/15/20 8... Start Date: 10/02/20 Stop Date: 12/31/20 Status: Ordered Singulair 10 mg oral tablet 10 mg, By Mouth, Daily at bedtime, # 30 tablet, Refills 5, Tot. Refills 5, Maintenance, 08/01/20 11:32:00 EST, Route to Pharmacy Electronically, [facility]/pharmacy #[id number], 188, cm, 05/24/20 9:00:00 EDT, Height, 78.9, kg, 03/15/20 8:08:00 EDT, Dry Weight Start Date: 08/01/20 Stop Date: 01/28/21 Status: Ordered Ventolin HFA 108 mcg/inh inhalation aerosol with adapter 1 puffs, By Mouth, Daily, PRN for wheezing, # 18 Gm, 5 Refills, Soft Stop, 01/07/20 11:13:00 EDT, Aerosol, [facility]/pharmacy #[id number], 188, cm, 08/16/19 12:53:00 [...] oldest [Reference Range]: 1 Height 188 cm (1/29/21 12:25 PM) Social History Social History Type Response Smoking Status Never smoker; Tobacc o user in household: No entered on: 01/23/17 Sex
--- OUTSIDE RECORDS SUMMARY | 2023-04-19 20:25 | XMS_ITS | Continuity of Care Document ---
Author Name Unknown Organization [facility] Address [address] [address]- Care Team Providers Care Bracelet Form Coverer Name Role Phone Clinton LOPEZ, [facility] Primary Care Physician Encounter [facility] [place] Date(s): 05/25/20 - 06/24/20 [facility] [address] [address]- [facility] Allergies, Adverse Reactions, Alerts Substance Reaction Severity Status nafcillin Rash Active Remeron [D]Shortness of breath Activ e Geodon Active Immunizations Given and Recorded Vaccine Date Status Refusal Reason influenza virus vaccine, inactivated 10/01/18 Davin rded pneumococcal 23-valent vaccine 1 05/13/18 Given 1Result Comment: [facility] [id number] Medications Advair Diskus 500 mcg-50 mcg inhalation powder 1, puffs, Inhalation, 2 times a day, # 60 each, Refills 5, Tot. Refills 5, Maintenance, 01/31/20 14:25:00 EDT, Inhaler, Route to Pharmacy Electronically, [id number], [facility]/pharmacy #[id number], 188, cm, 08/16/19 12:53:00 EST, Height Start Date: 01/31/20 Stop Date: 07/29/20 Status: Ordered amLODIPine 10 mg oral tablet 10 mg, 1, tablet, By Mouth, Daily, # 90 tablet, Refills 3, Tot. Refills 3, Maintenance, 08/16/19 13:22:42 EST, Route to Pharmacy Electronically, [id number], [facility]/pharmacy #[id number] Start Date: 08/16/19 [...] 08/16/19 13:22:41 EST, Route to Pharmacy Electronically, [id number], [facility]/pharmacy #[id number] Start Date: 08/16/19 Stop Date: 08/10/20 Status: Ordered report manager report manager, See Instructions, # 1 each, Refills 0, Tot. Refills 0, Maintenance, Dx psoas abscess, 01/27/17 14:56:45, Compound Start Date: 01/27/17 Status: Ordered SEROquel 25 mg oral tablet 12.5 mg, 0.5, tablet, By Mouth, Daily at bedtime, PRN, # 45 tablet, Refills 0, Tot. Refills 0, Maintenance, Sleep, 06/07/20 11:58:00 EDT, [facility] to Pharmacy Electronically, [facility] [...]
--- OUTSIDE RECORDS SUMMARY | 2023-04-19 20:25 | XMS_ITS | Continuity of Care Document ---
Author Name Unknown Organization [facility] Adult Address [address] [place] [address]- Care Team Providers Care Cyber Security Analyst Name Role Phone Clinton LOPEZ, [facility] Primary Care Physician [place] [facility] 08/06/22 - 09/05/22 [facility] Adult [address] [place] [address]- Attending Physician: Sherley Wilkinson Admitting Physician: AdmtrSherley Referring Physician: Admtr, Ar8 Allergies, Adverse Reactions, Alerts Substance Reaction Severity Status nafcillin Rash Active lithium Active Remeron [D]Shortness of breath Activ e Geodon Active Immunizations Given and Recorded Vaccine Date Status Refusal Reason tetanus/diphtheria/pertussis, acel(Tdap) 07/10/21 Recorded influenza virus vaccine, inactivated 10/01/18 Davin rded pneumococcal 23-valent vaccine 1 05/13/18 Given 1Result Comment: [facility] [id number] Medications Advair Diskus 500 mcg-50 mcg inhalation powder 1, puffs, Inhalation, 2 times a day, # 3 each, Refills 3, Tot. Refills 3, Maintenance, 08/21/22 19:17:00 EST, Inhaler, Route to Pharmacy Electronically, [id number], [facility]/pharmacy #[id number], 188, cm, 04/18/22 9:50:00 EDT, Height, 7... Start Date: 08/21/22 Stop Date: 08/16/23 Status: Ordered amLODIPine 10 mg oral tablet 1 tablet, By Mouth, Daily, # 90 tablet, 3 Refills, Maintenance, 08/27/22 14:15:00 EST, [facility], 188, cm, 04/18/22 9:50:00 EDT, Height, 77.5, kg, 04/24/21 9:38:00 EDT, Dry Weight Start Date: 08/27/22 Status: Ordered clonazePAM 0.5 mg oral tablet 1 tablet = 0.5 mg, By Mouth, 3 times a day, PRN Anxiety, TAKE 1 TABLET BY MOUTH THREE TIMES A DAY NEEDED, # 30 tablet, 2 Refills, Maintenance, 03/16/20 16:23:00 EDT, Tablet, [facility]/pharmacy #0993, 188, cm, 03/16/20 15:37:00 EDT, Height, 78.9, kg, 02/21... Start Date: 03/16/20 Stop Date: 04/15/20 Status: Ordered gabapentin 600 mg oral tablet 1 tablet, By Mouth, 3 times a day, # 42 tablet, 1 Refills, Maintenance, 03/16/20 16:23:00 EDT, [facility], 188, cm, 03/16/20 15:37:00 EDT, Height, 78.9, kg, 03/15/20 8:08:00 EDT, Dry Weight Start Date: 03/16/20 Stop Date: 04/13/20 Status: Ordered hydrOXYzine hydrochloride 50 mg oral tablet 1 tablet = 50 mg, By Mouth, 3 times a day, # 90 tablet, 1 Refills, Maintenance, 08/21/22 19:16:00 EST, [facility]/pharmacy #0957, Partial fill upon patient request [...] Refills, Maintenance, 07/10/22 19:38:00 EDT, [facility], 188, cm, 04/18/22 9:50:00 EDT, Height, 77.5, [...] 08/27/22 14:15:00 EST, Route to Pharmacy Electronically, [id number], 188, cm, 04/18/22 9:50:00 EDT, Height, 77.5, kg, 04/24/21 9:38:00 EDT, Dry Weight Start Date: 08/27/22 Status: Ordered QUEtiapine 25 mg oral tablet 0.5, tablet, By Mouth, Daily at bedtime, PRN, # 45 tablet, Refills 1, Maintenance, NEEDED FOR SLEEP, 07/11/22 9:16:00 EDT, Route to Pharmacy Electronically, [id number], 188, cm, 04/18/22 9:50:00 EDT, Height, 77.5, kg, 04/24/21 9:38:00 EDT, Dry... Start Date: 07/11/22 Status: Ordered lock expert lock expert, See Instructions, # 1 each, Refills 0, [...] Refills, Soft Stop, 08/21/22 19:15:00 EST, Aerosol, [facility]/pharmacy #0957, 188, cm, 04/18/22 9:50:00 [...] days entered on: 07/18/21 Sex Note * Duarte LOPEZ, Aleksandr Rodas: PERFORM Event Display: Discharge/Transfer Note Hospital Authored Date: [id number] This note will serve as an addendum [...] became more and more insistent upon leaving [facility] and going to [facility], just because he wanted to receive [...] Team Personnel Name: Lani Madrigal RN Position: [facility] SN Optical Effects Layout Person Member Role: Primary Care Nurse Name: Wanda Reis NP Position: [facility] Associate Professional Member Role: Primary Care Nurse Address: Address: [address] [place] [address]- Name: Felisa Quiroga RN Position: [facility] RN Supv Member Role: Primary Care Nurse Name: Carolynn Thompson RN Position: S RN Member Role: Primary Care Nurse Name: Rena Albert RN Position: S RN Member Role: Primary Care Nurse Name: Luci Haile RN Position: [facility] RN Member Role: Primary Care Nurse Name: Pushpa Alonzo MD Position: [facility] Primary Care Physician Member Role: PCP Address: Address: [address] [place] [address] [address] [place] [address]- Name: Augustina Adams RN Position: [facility] RN Member Role: Primary Care Nurse Name: Chika Jha RN Position: [facility] SN Optical Effects Layout Person Member Role: Primary Care Nurse Name: Chapito Armstrong RN Position: S RN Member Role: Primary Care Nurse Name: Carmina Rose RN Position: S RN Member Role: Primary Care Nurse Name: Carmen Pace RN Position: S RN Member Role: Primary Care Nurse Name: Leanna King RN Position: [facility] RN Member Role: Primary Care Nurse Care Team Related Persons Name: NO, ONE Name: RONNY ROGERS Address: home [address] [place] [address] Name: KYLE COLEMAN Address: home [address] [place] [id number]
--- OUTSIDE RECORDS SUMMARY | 2023-04-19 20:26 | XMS_ITS | Continuity of Care Document ---
Author Name Unknown Organization [facility] Address [address] [address]- Care Team Providers Care Pit Furnace Melter Name Role Phone Clinton LOPEZ, [facility] Primary Care Physician Encounter [facility] Date(s): 06/21/21 - 07/21/21 [facility] [address] [place] [id number] Allergies, Adverse Reactions, Alerts Substance Reaction Severity Status nafcillin Rash Active lithium Active Remeron [D]Shortness of breath Activ e Geodon Active Immunizations Given and Recorded Vaccine Date Status Refusal Reason tetanus/diphtheria/pertussis, acel(Tdap) 07/10/21 Recorded influenza virus vaccine, inactivated 10/01/18 Davin rded pneumococcal 23-valent vaccine 1 05/13/18 Given 1Result Comment: [facility] [id number] Medications Advair Diskus 500 mcg-50 mcg inhalation powder 1, puffs, Inhalation, 2 times a day, # 3 each, Refills 3, Tot. Refills 3, Maintenance, 07/18/21 14:53:00 EDT, Inhaler, Route to Pharmacy Electronically, [id number], [facility]/pharmacy #0957, 188, cm, 07/18/21 14:52:00 EDT, Height,... [...] 2 Refills, Maintenance, 03/16/20 16:23:00 EDT, Tablet, [facility]/pharmacy #0993, 188, cm, 03/16/20 15:37:00 EDT, Height, 78.9, kg, 02/21... Start Date: 03/16/20 Stop Date: 04/15/20 Status: Ordered gabapentin 600 mg oral tablet 1 tablet, By Mouth, 3 times a day, # 42 tablet, 1 Refills, Maintenance, 03/16/20 16:23:00 EDT, [facility]/pharmacy #0993, 188, cm, 03/16/20 15:37:00 EDT, Height, [...] 07/18/21 14:53:00 EDT, Route to Pharmacy Electronically, [facility]/pharmacy #0957, 188, cm, 07/18/21 14:52:00 EDT, Height, [...] 07/18/21 14:53:00 EDT, Route to Pharmacy Electronically, [facility]/pharmacy #0957, 188,cm, 07/18/21 14:52:00 EDT, Height, 77.5, kg, ... Start Date: 07/18/21 Status: Ordered creative services director creative services director, See Instructions, # 1 each, Refills 0, Tot. Refills 0, Maintenance, Dx psoas abscess, 01/27/17 14:56:45, Compound Start Date: 01/27/17 Status: Ordered Singulair 10 mg oral tablet 10 mg, 1, tablet, By Mouth, Daily at bedtime, # 90 tablet, Refills 3, Tot. Refills 3, Maintenance, 07/18/21 14:53:00 EDT, Route to Pharmacy Electronically, [facility]/pharmacy #0957, 188, cm, 07/18/21 14:52:00 EDT, Height, [...] Refills, Soft Stop, 01/07/20 11:13:00 EDT, Aerosol, [facility]/pharmacy #0707, 188, cm, 08/16/19 12:53:00 EST, Height [...]
--- OUTSIDE RECORDS SUMMARY | 2023-04-19 20:26 | XMS_ITS | Continuity of Care Document ---
Author Name Unknown Organization [facility] Adult Address [address] [place] [address]- Care Team Providers Care Spooler Operator Name Role Phone Clinton LOPEZ, [facility] Primary Care Physician ( [phone] Encounter [facility] [place] Date(s): 10/20/20 - 11/19/20 [facility] Adult [address] [place] [address]- Allergies, Adverse Reactions, Alerts Substance Reaction Severity [...] 9:05:00 EST, Inhaler, Route to Pharmacy Electronically, [id number], [facility]/pharmacy #0993, 188, cm, 05/24/20 9:00:00 EDT, Height, 7... Start Date: 09/25/20 Stop Date: 03/24/21 Status: Ordered amLODIPine 10 mg oral tablet 10 mg, 1, tablet, By Mouth, Daily, # 90 tablet, Refills 1, Tot. Refills 1, Maintenance, 07/26/20 9:09:00 EST, Route to Pharmacy Electronically, [facility]/pharmacy #[id number], 188, cm, 05/24/20 9:00:00 EDT, Height, 78.9, kg, 03/15/20 8:08:00 EDT, Dry Weight Start Date: 07/26/20 Stop Date: 01/22/21 Status: Ordered clonazePAM 0.5 mg oral tablet 1 tablet = 0.5 mg, By Mouth, 3 times a day, PRN Anxiety, TAKE 1 TABLET BY MOUTH THREE TIMES A DAY NEEDED, # 30 tablet, 2 Refills, Maintenance, 03/16/20 16:23:00 EDT, Tablet, [facility]/pharmacy #0993, 188, cm, 03/16/20 15:37:00 EDT, Height, 78.9, kg, 02/21... Start Date: 03/16/20 Stop Date: 04/15/20 Status: Ordered gabapentin 600 mg oral tablet 1 tablet, By Mouth, 3 times a day, # 42 tablet, 1 Refills, Maintenance, 03/16/20 16:23:00 EDT, [facility]/pharmacy #0993, 188, cm, 03/16/20 15:37:00 EDT, [...] 08/16/19 13:22:41 EST, Route to Pharmacy Electronically, [id number], [facility]/pharmacy #0993 Start Date: 08/16/19 Stop Date: 08/10/20 Status: Ordered felt machine mechanic felt machine mechanic, See Instructions, # 1 each, Refills 0, Tot. Refills 0, Maintenance, Dx psoas abscess, 01/27/17 14:56:45, Compound Start Date: 01/27/17 Status: Ordered SEROquel 25 mg oral tablet 12.5 mg, 0.5, tablet, By Mouth, Daily at bedtime, PRN, # 45 tablet, Refills 0, Tot. Refills 0, Maintenance, Sleep, 10/02/20 15:34:00 EST, Route to Pharmacy Electronically, [facility]/pharmacy #[id number], 188, cm, 05/24/20 9:00:00 EDT, Height, 78.9, kg, 03/15/20 8... Start Date: 10/02/20 Stop Date: 12/31/20 Status: Ordered Singulair 10 mg oral tablet 10 mg, By Mouth, Daily at bedtime, # 30 tablet, Refills 5, Tot. Refills 5, Maintenance, 08/01/20 11:32:00 EST, Route to Pharmacy Electronically, [facility]/pharmacy #[id number], 188, cm, 05/24/20 9:00:00 EDT, Height, 78.9, kg, 03/15/20 8:08:00 EDT, Dry Weight Start Date: 08/01/20 Stop Date: 01/28/21 Status: Ordered Ventolin HFA 108 mcg/inh inhalation aerosol with adapter 1 puffs, By Mouth, Daily, PRN for wheezing, # 18 Gm, 5 Refills, Soft Stop, 01/07/20 11:13:00 EDT, Aerosol, [facility]/pharmacy #0707, 188, cm, 08/16/19 12:53:00 EST, [...]
--- OUTSIDE RECORDS SUMMARY | 2023-04-19 20:26 | XMS_ITS | Continuity of Care Document ---
Author Name Unknown Organization [facility] ter Address [address] [place] [address]- Care Team Providers Care Gold Assayer Name Role Phone Clinton LOPEZ, [facility] Primary Care Physician Encounter [facility] Date(s): 07/27/21 - 09/05/[address] [address] Attending Physician: Jimbo Rodriguez MD Admitting [...] Given 1Result Comment: [facility] [id number] Medications Advair Diskus 500 mcg-50 mcg inhalation powder 1, puffs, Inhalation, 2 times a day, # 3 each, Refills 3, Tot. Refills 3, Maintenance, 07/18/21 14:53:00 EDT, Inhaler, Route to Pharmacy Electronically, [id number], [facility], 188, cm, 07/18/21 14:52:00 EDT, [...] Refills, Maintenance, 03/16/20 16:23:00 EDT, Tablet, [facility]/pharmacy #0993, 188, cm, 03/16/20 15:37:00 EDT, Height, 78.9, kg, 02/21... Start Date: 03/16/20 Stop Date: 04/15/20 Status: Ordered gabapentin 600 mg oral tablet 1 tablet, By Mouth, 3 times a day, # 42 tablet, 1 Refills, Maintenance, 03/16/20 16:23:00 EDT, [facility]/pharmacy #0993, 188, cm, 03/16/20 15:37:00 EDT, Height, [...] 07/18/21 14:53:00 EDT, Route to Pharmacy Electronically, [facility]/pharmacy #0957, 188, cm, 07/18/21 14:52:00 EDT, Height, [...] 07/18/21 14:53:00 EDT, Route to Pharmacy Electronically, [facility]/pharmacy #0957, 188,cm, 07/18/21 14:52:00 EDT, Height, 77.5, kg, ... Start Date: 07/18/21 Status: Ordered construction driller construction driller, See Instructions, # 1 each, Refills 0, Tot. Refills 0, Maintenance, Dx psoas abscess, 01/27/17 14:56:45, Compound Start Date: 01/27/17 Status: Ordered Singulair 10 mg oral tablet 10 mg, 1, tablet, By Mouth, Daily at bedtime, # 90 tablet, Refills 3, Tot. Refills 3, Maintenance, 07/18/21 14:53:00 EDT, Route to Pharmacy Electronically, [facility]/pharmacy #0957, 188, cm, 07/18/21 14:52:00 EDT, Height, [...] Soft Stop, 01/07/20 11:13:00 EDT, Aerosol, [facility]/pharmacy #0707, 188, cm, 08/16/19 12:53:00 EST, Height [...]
--- OUTSIDE RECORDS SUMMARY | 2023-04-19 20:26 | XMS_ITS | Continuity of Care Document ---
Author Name Unknown Organization [facility] Adult Address [address] [place] [address]- Care Team Providers Care Teen Counselor Name Role Phone Clinton LOPEZ, [facility] Primary Care Physician Encounter [facility] [place] Date(s): 02/21/23 - 04/02/23 [facility] Adult [address] [place], [place] [address] Attending Physician: Not on Staff, Attending MD [...] 19:17:00 EST, Inhaler, Route to Pharmacy Electronically, [id number], [facility]/pharmacy #0957, 188, cm, 04/18/22 9:50:00 EDT, [...] tablet, 1 Refills, Maintenance, 03/20/23 11:36:00 EDT, [facility] STORE 29725, 188, cm, 12/06/22 13:35:00 EDT, Height, 77.5, kg, 04/24/21 9:38:00 EDT, Dry Weight Start Date: 03/20/23 Status: Ordered hydrOXYzine hydrochloride 50 mg oral tablet 1 tablet, By Mouth, 3 times a day, # 90 tablet, 1 Refills, Maintenance, 12/30/22 9:48:00 EDT, [facility] STORE 44588, 188, cm, 12/06/22 13:35:00 EDT, Height, 77.5, kg, 04/24/21 9:38:00 EDT, Dry Weight Start Date: 12/30/22 Status: Ordered lamotrigine 200 mg oral tablet 2 tablet = 400 mg, By Mouth, 2 times a day Start Date: 03/13/20 Status: Ordered losartan 25 mg oral tablet 1 tablet, By Mouth, Daily, # 90 tablet, 3 Refills, Maintenance, 10/02/22 13:36:00 EST, [facility]/pharmacy#0957, 188, cm, 10/02/22 13:06:00 EST, Height, 77.5, kg, 04/24/21 9:38:00 EDT, Dry Weight Start Date: 10/02/22 Status: Ordered montelukast 10 mg oral tablet 1, tablet, By Mouth, Daily at bedtime, # 90 tablet, Refills 3, Tot. Refills 3, Maintenance, 10/02/22 13:36:00 EST, Route to Pharmacy Electronically, [facility]/pharmacy #0957, 188, cm, 10/02/22 13:06:00 EST, Height, 77.5, kg, 04/24/21 9:38:00 EDT, Dry Weight Start Date: 10/02/22 Status: Ordered ProAir HFA 90 mcg/inh inhalation aerosol 1 puffs, Inhalation, Daily, PRN NEEDED FOR WHEEZE, # 18 each, 5 Refills, Maintenance, 12/27/22 11:29:00 EDT, [facility] STORE 91903, 25, INHALE 1 PUFF EVERY DAY NEEDED FOR WHEEZE, 188, cm, 12/06/22 13:35:00 EDT, Height, 77.5, kg, 04/24/21 9:38:00 EDT,... Start Date: 12/27/22 Status: Ordered QUEtiapine 25 mg oral tablet 1, tablet, By Mouth, Daily at bedtime, PRN, # 30 tablet, Refills 1, Maintenance, NEEDED FOR SLEEP, 12/30/22 9:48:00 EDT, Route to Pharmacy Electronically, [facility], 188, cm, 12/06/22 13:35:00 EDT, Height, 77.5, kg, 04/24/21 9:38:00 EDT, Dry... Start Date: 12/30/22 Status: Ordered stunt woman stunt woman, See Instructions, # 1 each, Refills 0, Tot. Refills 0, Maintenance, Dx psoas abscess, 01/27/17 14:56:45, Compound Start Date: 01/27/17 Status: Ordered traZODone 50 mg oral tablet 1, tablet, By Mouth, Daily at bedtime, # 30 tablet, Refills 2, Tot. Refills 2, Maintenance, 12/05/22 15:32:00 EDT, Route to Pharmacy Electronically, [facility]/pharmacy #0957, 188, cm, 10/02/22 13:06:00 EST, [...] Team Personnel Name: Lani Madrigal RN Position: [facility] SN Metallurgical Engineering Teacher Member Role: Primary Care Nurse Name: Wanda Reis NP Position: [facility] Associate Professional Member Role: Primary Care Nurse Address: Address: [address] [facility] [place] [address]- [place] Name: Felisa Quiroga RN Position: [facility] RN Supv Member Role: Primary Care Nurse Name: Carolynn Thompson RN Position: [facility] RN Member Role: Primary Care Nurse Name: Luci Haile RN Position: [facility] RN Member Role: Primary Care Nurse Name: Pushpa Alonzo MD Position: [facility] Physician - Primary Care Member Role: PCP Address: Address: [address] [place] [address] [address]rd Floor [facility] [place] [address]- [place] Name: Augustina Adams RN Position: [facility] RN Member Role: Primary Care Nurse Name: Chika Jha RN Position: [facility] SN Metallurgical Engineering Teacher Member Role: Primary Care Nurse Name: Chapito Armstrong RN Position: [facility] RN Member Role: Primary Care Nurse Name: Carmina Rose RN Position: [facility] RN Member Role: Primary Care Nurse Name: Leanna King RN Position: [facility] RN Member Role: Primary Care Nurse Care Team Related Persons Name: NO, KT Name: RONNY ROGERS Address: home [address] [place] [address] Name: KYLE COLEMAN Address: home [address] [place] [address]
--- OUTSIDE RECORDS SUMMARY | 2023-04-19 20:26 | XMS_ITS | Continuity of Care Document ---
Author Name Unknown Organization [facility] Adult Address [address] [place] [address]- Care Team Providers Care Rougher Machine Operator Name Role Phone Clinton LOPEZ, [facility] Primary Care Physician ( [phone] [facility] Date(s): 02/23/20 - 03/01/20 [facility] Adult [address] [place] [address]- [place] Encounter Diagnosis Acute URI(Discharge Diagnosis) - 02/23/20 Attending Physician: Clinton LOPEZ, [facility] Allergies, Adverse Reactions, Alerts Substance Reaction Severity Status nafcillin Rash Active Remeron [D]Shortness of breath Activ e Geodon Active Immunizations Given and Recorded Vaccine Date Status Refusal Reason influenza virus vaccine, inactivated 10/01/18 Davin rded pneumococcal 23-valent vaccine 1 05/13/18 Given 1Result Comment: [facility] [id number] Medications Advair Diskus 500 mcg-50 mcg inhalation powder 1, puffs, Inhalation, 2 times a day, # 60 each, Refills 5, Tot. Refills 5, Maintenance, 01/31/20 14:25:00 EDT, Inhaler, Route to Pharmacy Electronically, [id number], [facility]/pharmacy #0993, 188, cm, 08/16/19 12:53:00 EST, Height Start Date: 01/31/20 Stop Date: 07/29/20 Status: Ordered allopurinol 300 mg oral tablet See Instructions, TAKE 1 TABLET BY MOUTH EVERY DAY, # 30 tablet, Refills 2, Tot. Refills 2, Maintenance, 08/15/19 12:53:22 EST, Instructions Replace Required Details, Route to Pharmacy Electronically, [id number], [facility]/pharmacy... Start Date: 08/15/19 Status: Ordered amLODIPine 10 mg oral tablet 10 mg, 1, tablet, By Mouth, Daily, # 90 tablet, Refills 3, Tot. Refills 3, Maintenance, 08/16/19 13:22:42 EST, Route to Pharmacy Electronically, [id number], [facility]/pharmacy #0993 Start Date: 08/16/19 Stop Date: 08/10/20 Status: Ordered atorvastatin 40 mg oral tablet 1 tablet = 40 mg, By Mouth, Daily, # 30 tablet, 5 Refills, Maintenance, 09/13/19 10:10:00 EST, Tablet, [facility]/pharmacy #0993, 188, cm, 08/16/19 12:53:00 EST, Height Start Date: 09/13/19 Stop Date: 03/11/20 Status: Ordered atorvastatin 40 mg oral tablet 1 tablet = 40 mg, By Mouth, Daily, for 30 days, # 30 tablet, 5 Refills, Physician Stop 04/11/20 12:49:00 EDT, 10/14/19 12:49:00 EST, [facility]/pharmacy #0707, 188, cm, 08/16/19 12:53:00 [...] Gm, 5 Refills, Maintenance, 01/26/20 14:36:00 EDT, [place], [facility]/pharmacy #0707, 1 sprays Nares, Both Daily in AM,x30 days, 188, cm, 08/16/19 12:53:00 EST, Height Start Date: 01/26/20 Stop Date: 07/24/20 Status: Ordered gabapentin 600 mg oral tablet 1 tablet, By Mouth, 3 times a day, # 270 tablet, 0 Refills, Maintenance, 11/24/19 13:07:00 EST, [facility]/pharmacy #0707, 188, cm, 08/16/19 12:53:00 [...] 08/16/19 13:22:41 EST, Route to Pharmacy Electronically, [id number], [facility]/pharmacy #0993 Start Date: 08/16/19 Stop Date: 08/10/20 Status: Ordered naproxen 500 mg oral tablet 1 tablet, By Mouth, 2 times a day, PRN NEEDED, MODERATE PAIN., # 60 tablet, 0 Refills, Acute, 09/13/19 10:10:00 EST, [facility] STORE 31458, 188, cm, 08/16/19 12:53:00 EST, Height Start Date: 09/13/19 Status: Ordered omeprazole 20 mg oral enteric coated capsule 1 capsule = 20 mg, By Mouth, Daily, Before a meal., # 30 capsule, 2 Refills, Soft Stop, 10/14/19 9:49:00 EST, [facility]/pharmacy #0707, 188, cm, 08/16/19 12:53:00 EST, Height Start Date: 10/14/19 Stop Date: 01/12/20 Status: Ordered shoe lining fitter shoe lining fitter, See Instructions, # 1 each, Refills 0, Tot. Refills 0, Maintenance, Dx psoas abscess, 01/27/17 14:56:45, Compound Start Date: 01/27/17 Status: Ordered Singulair 10 mg oral tablet 10 mg, By Mouth, Daily at bedtime, # 30 tablet, Refills 5, Tot. Refills 5, Maintenance, 02/03/20 11:32:00 EDT, Route to Pharmacy Electronically, [facility]/pharmacy #0993, 188, cm, 02/02/20 8:48:00 EDT, Height Start Date: 02/03/20 Stop Date: 08/01/20 Status: Ordered Ventolin HFA 108 mcg/inh inhalation aerosol with adapter 1 puffs, By Mouth, Daily, PRN for wheezing, # 18 Gm, 5 Refills, Soft Stop, 01/07/20 11:13:00 EDT, Aerosol, [facility]/pharmacy #0707, 188, cm, 08/16/19 12:53:00 EST, Height Start Date: 01/07/20 Stop Date: 07/05/20 Status: Ordered Zithromax 250 mg oral tablet 1 pack/packet, By Mouth, Once, # 6 tablet, 0 Refills, Soft Stop, 02/02/20 9:28:00 EDT, Tablet, [facility]/pharmacy #0993, 188, cm, 02/02/20 8:48:00 EDT, [...] Diagnosis Diagnosis Type Effective Dates Health Status Clini michelle Service Informant Acute URI Discharge Diagnosis 02/23/20 Vital Signs Most recent to oldest [Reference Range]: 1 Height 188 cm (02/23/20 12:22 PM) Social History Social History Type Response Smoking Status Never smoker; Tobacc o user in household: No entered on: 01/23/17 Sex
--- OUTSIDE RECORDS SUMMARY | 2023-04-19 20:26 | XMS_ITS | Continuity of Care Document ---
Author Name Unknown Organization [facility] Adult Address [address] [place] [address]- Care Team Providers Care Fingerprint Clerk Name Role Phone Clinton LOPEZ, [facility] Primary Care Physician Encounter [facility] [place] Date(s): 04/21/20 - 05/24/20 [facility] Adult [address] [place] [address]- [facility] Attending Physician: Sakshi JAEGER, Leanna Rodriguez Allergies, Adverse Reactions, Alerts Substance Reaction Severity [...] 14:25:00 EDT, Inhaler, Route to Pharmacy Electronically, [id number], [facility]/pharmacy #[id number], 188, cm, 08/16/19 12:53:00 EST, Height Start Date: 01/31/20 Stop Date: 07/29/20 Status: Ordered amLODIPine 10 mg oral tablet 10 mg, 1, tablet, By Mouth, Daily, # 90 tablet, Refills 3, Tot. Refills 3, Maintenance, 08/16/19 13:22:42 EST, Route to Pharmacy Electronically, [id number], [facility]/pharmacy #0993 Start Date: 08/16/19 Stop Date: 08/10/20 [...] 05/24/20 9:39:00 EDT, Route to Pharmacy Electronically, [facility]/pharmacy #0993, 188, cm, 05/24/20 9:00:00 EDT, Height, [...] 08/16/19 13:22:41 EST, Route to Pharmacy Electronically, [id number], [facility]/pharmacy #0993 Start Date: 08/16/19 Stop Date: 08/10/20 Status: Ordered nicotine 2 mg oral transmucosal gum = 2 mg, Chew, Every hour, PRN Other, for 6 week(s), Nicotine Cravings, # 160 each, 1 Refills, Acute06/08/20 16:24:00 EDT, 03/16/20 16:24:00 EDT, Gum, [facility]/pharmacy #0993, 188, cm, 03/16/20 15:37:00 EDT, Height, 78.9, kg, 03/15/20 8:08:00 EDT, Dry Weight Start Date: 03/16/20 Stop Date: 06/08/20 Status: Ordered fashion illustrator fashion illustrator, See Instructions, # 1 each, Refills 0, Tot. Refills 0, Maintenance, Dx psoas abscess, 01/27/17 14:56:45, Compound Start Date: 01/27/17 Status: Ordered SEROquel 25 mg oral tablet 12.5 mg, 0.5, tablet, By Mouth, Daily at bedtime, PRN, # 15 tablet, Refills 0, Tot. Refills 0, Maintenance, Sleep, 05/24/20 9:41:00 EDT, Route to Pharmacy Electronically, [facility]/pharmacy #0993, 188, cm,05/24/20 9:00:00 EDT, Height, 78.9, kg, 03/15/20 8:... Start Date: 05/24/20 Stop Date: 06/23/20 Status: Ordered Singulair 10 mg oral tablet 10 mg, By Mouth, Daily at bedtime, # 30 tablet, Refills 5, Tot. Refills 5, Maintenance, 02/03/20 11:32:00 EDT, Route to Pharmacy Electronically, [facility]/pharmacy #0993, 188, cm, 02/02/20 8:48:00 EDT, Height [...]
--- OUTSIDE RECORDS SUMMARY | 2023-04-19 20:26 | XMS_ITS | Continuity of Care Document ---
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 Name Role Phone Clinton LOPEZ, [facility] Primary Care Physician ( [phone] [place] [facility] [place]/20 - 06/24/20 [facility] [address] [address]- [facility] Attending Physician: Admtr, Ar8 Admitting Physician: Admtr, Ar8 Referring Physician: Admtr, Ar8 Allergies, Adverse Reactions, Alerts Substance Reaction Severity Status nafcillin Rash Active Remeron [D]Shortness of breath Activ e Geodon Active Immunizations Given and Recorded Vaccine Date Status Refusal Reason influenza virus vaccine, inactivated 10/01/18 Davin rded pneumococcal 23-valent vaccine 1 05/13/18 Given 1Result Comment: [facility] [id number] Medications Advair Diskus 500 mcg-50 mcg inhalation powder 1, puffs, Inhalation, 2 times a day, # 60 each, Refills 5, Tot. Refills 5, Maintenance, 01/31/20 14:25:00 EDT, Inhaler, Route to Pharmacy Electronically, [id number], [facility]/pharmacy #0993, 188, cm, 08/16/19 12:53:00 EST, Height Start Date: 01/31/20 Stop Date: 07/29/20 Status: Ordered amLODIPine 10 mg oral tablet 10 mg, 1, tablet, By Mouth, Daily, # 90 tablet, Refills 3, Tot. Refills 3, Maintenance, 08/16/19 13:22:42 EST, Route to Pharmacy Electronically, [id number], [facility]/pharmacy #0993 Start Date: 08/16/19 Stop Date: 08/10/20 Status: Ordered clonazePAM 0.5 mg oral tablet 1 tablet = 0.5 mg, By Mouth, 3 times a day, PRN Anxiety, TAKE 1 TABLET BY MOUTH THREE TIMES A DAY NEEDED, # 30 tablet, 2 Refills, Maintenance, 03/16/20 16:23:00 EDT, Tablet, [facility]/pharmacy #0993, 188, cm, 03/16/20 15:37:00 EDT, Height, 78.9, kg, 02/21... Start Date: 03/16/20 Stop Date: 04/15/20 Status: Ordered gabapentin 600 mg oral tablet 1 tablet, By Mouth, 3 times a day, # 42 tablet, 1 Refills, Maintenance, 03/16/20 16:23:00 EDT, [facility]/pharmacy #0993, 188, cm, 03/16/20 15:37:00 [...] 08/16/19 13:22:41 EST, Route to Pharmacy Electronically, [id number], [facility]/pharmacy #[id number] Start Date: 08/16/19 Stop Date: 08/10/20 Status: Ordered property administrator property administrator, See Instructions, # 1 each, Refills 0, Tot. Refills 0, Maintenance, Dx psoas abscess, 01/27/17 14:56:45, Compound Start Date: 01/27/17 Status: Ordered SEROquel 25 mg oral tablet 12.5 mg, 0.5, tablet, By Mouth, Daily at bedtime, PRN, # 45 tablet, Refills 0, Tot. Refills 0, Maintenance, Sleep, 06/07/20 11:58:00 EDT, Route to Pharmacy Electronically, [facility]/pharmacy #0993, 188, cm, 05/24/20 9:00:00 EDT, Height, 78.9, kg, 03/15/20 8... Start Date: 06/07/20 Stop Date: 09/05/20 Status: Ordered Singulair 10 mg oral tablet 10 mg, By Mouth, Daily at bedtime, # 30 tablet, Refills 5, Tot. Refills 5, Maintenance, 02/03/20 11:32:00 EDT, Route to Pharmacy Electronically, [facility]/pharmacy #0993, 188, cm, 02/02/20 8:48:00 EDT, Height Start Date: 02/03/20 Stop Date: 08/01/20 Status: Ordered Ventolin HFA 108 mcg/inh inhalation aerosol with adapter 1 puffs, By Mouth, Daily, PRN for wheezing, # 18 Gm, 5 Refills, Soft Stop, 01/07/20 11:13:00 EDT, Aerosol, [facility]/pharmacy #0707, 188, cm, 08/16/19 12:53:00 [...]
--- OUTSIDE RECORDS SUMMARY | 2023-04-19 20:26 | XMS_ITS | Continuity of Care Document ---
Author Name Unknown Organization [facility] Adult Address [address] [place] [address]- Care Team Providers Care Key Account Manager Name Role Phone Clinton LOPEZ, [facility] Encounter [facility] [place] Date(s): 12/06/22 - 12/13/[address] [facility] Adult [address] [place] [address]- Encounter Diagnosis Aneurysm of descending thoracic aorta(Discharge Diagnosis) - 12/06/22 Bipolar disorder(Discharge Diagnosis) - 12/06/22 Chronic viral hepatitis C(Discharge Diagnosis) - 12/06/22 Asthma(Discharge Diagnosis) - 12/06/22 HTN (hypertension)(Discharge Diagnosis) - 12/06/22 Hyperlipidemia(Discharge Diagnosis) - 12/06/22 Substance abuse(Discharge Diagnosis) - 12/06/22 Attending Physician: Clinton LOPEZ, [facility] Allergies, Adverse Reactions, Alerts Substance Reaction Severity [...] 19:17:00 EST, Inhaler, Route to Pharmacy Electronically, [id number], [facility]/pharmacy #0957, 188, cm, 04/18/22 9:50:00 EDT, Height, 7... Start Date: 08/21/22 Stop Date: 08/16/23 Status: Ordered amLODIPine 10 mg oral tablet 1 tablet, By Mouth, Daily, # 90 tablet, 3 Refills, Maintenance, 10/02/22 13:35:00 EST, [facility]/pharmacy#0957, 188, cm, 10/02/22 13:06:00 EST, Height, 77.5, kg, 04/24/21 9:38:00 EDT, Dry Weight Start Date: 10/02/22 Status: Ordered clonazePAM 0.5 mg oral tablet 1 tablet = 0.5 mg, By Mouth, 3 times a day, PRN Anxiety, TAKE 1 TABLET BY MOUTH THREE TIMES A DAY NEEDED, # 30 tablet, 2 Refills, Maintenance, 03/16/20 16:23:00 EDT, Tablet, [facility]/pharmacy #0993, 188, cm, 03/16/20 15:37:00 EDT, Height, 78.9, kg, 2... Start Date: 03/16/20 Stop Date: 04/15/20 Status: Ordered gabapentin 600 mg oral tablet 1 tablet = 600 mg, By Mouth, 3 times a day, # 90 tablet, 1 Refills, Maintenance, 10/02/22 13:35:00 EST, [facility]/pharmacy #0957, 188, cm, 10/02/22 13:06:00 EST, Height, 77.5, kg, 04/24/21 9:38:00 EDT, DryWeight Start Date: 10/02/22 Stop Date: 12/01/22 Status: Ordered hydrOXYzine hydrochloride 50 mg oral tablet 1 tablet, By Mouth, 3 times a day, # 90 tablet, 1 Refills, Maintenance, 10/02/22 13:36:00 EST, [facility]/pharmacy #0957, 188, cm, 10/02/22 13:06:00 EST, Height, 77.5, kg, 04/24/21 9:38:00 EDT, Dry Weight Start Date: 10/02/22 Status: Ordered lamotrigine 200 mg oral tablet 2 tablet = 400 mg, By Mouth, 2 times a day Start Date: 03/13/20 Status: Ordered losartan 25 mg oral tablet 1 tablet, By Mouth, Daily, # 90 tablet, 3 Refills, Maintenance, 10/02/22 13:36:00 EST, [facility]/pharmacy#0957, 188, cm, 10/02/22 13:06:00 EST, Height, [...] 10/02/22 13:36:00 EST, Route to Pharmacy Electronically, [facility]/pharmacy #0957, 188, cm, 10/02/22 13:06:00 EST, Height, 77.5, kg, 04/24/21 9:38:00 EDT, Dry Weight Start Date: 10/02/22 Status: Ordered QUEtiapine 25 mg oral tablet 25 mg, 1, tablet, By Mouth, Daily at bedtime, PRN, # 30 tablet, Refills 1, Tot. Refills 1, Maintenance, NEEDED FOR SLEEP, 10/02/22 13:38:00 EST, Route to Pharmacy Electronically, [facility]/pharmacy #0957, 188, cm, 10/02/22 13:06:00 EST, Height, 77.5, kg,... Start Date: 10/02/22 Stop Date: 12/01/22 Status: Ordered fire warden fire warden, See Instructions, # 1 each, Refills 0, Tot. Refills 0, Maintenance, Dx psoas abscess, 01/27/17 14:56:45, Compound Start Date: 01/27/17 Status: Ordered traZODone 50 mg oral tablet 1, tablet, By Mouth, Daily at bedtime, # 30 tablet, Refills 2, Tot. Refills 2, Maintenance, 12/05/22 15:32:00 EDT, Route to Pharmacy Electronically, [facility]/pharmacy #0957, 188, cm, 10/02/22 13:06:00 EST, Height, 77.5, kg, 04/24/21 9:38:00 EDT, Dry Weight Start Date: 12/05/22 Status: Ordered Ventolin HFA 108 mcg/inh inhalation [...] Aneurysm of descending thoracic aorta Discharge Diagnosis 12/06/22 Bipolar disorder Discharge Diagnosis 12/06/22 Chronic viral hepatitis C Discharge Diagnosis 12/06/22 Asthma Discharge Diagnosis 12/06/22 HTN (hypertension) Discharge Diagnosis 12/06/22 Hyperlipidemia Discharge Diagnosis 12/06/22 Substance abuse Discharge Diagnosis 12/06/22 Vital Signs Most recent to oldest [Reference Range]: 1 Height 188 cm (12/06/22 1:35 PM) Weight 79 kg (12/06/22 1:35 PM) Body Mass Index [18.5-24.99 kg/m2] 22.35 kg/m2 (12/06/22 1:35 PM) Weight Obtained Via Patient/family state d (12/06/22 1:35 PM) Social History Social History Type Response Smoking Status 5-9 cigarettes (betw een 1/4 to 1/2 pack)/day in last 30 days entered on: 07/18/21 Sex Patient Care team information Care Team Personnel Name: Lani Madrigal RN Position: [facility] Signal Mechanic Member Role: Primary Care Nurse Name: Smiley JAEGER, Wanda aJckman Position: [facility] Associate Professional Member Role: Primary Care Nurse Address: Address: [address] [place] [address]- [place] Name: Felisa Quiroga RN Position: [facility] RN Supv Member Role: Primary Care Nurse Name: Carolynn Thompson RN Position: [facility] RN Member Role: Primary Care Nurse Name: Luci Haile RN Position: [facility] RN Member Role: Primary Care Nurse Name: Pushpa Alonzo MD Position: [facility] Primary Care Physician Member Role: PCP Address: Address: [address] [place] [address]- [place] Name: Augustina Adams RN Position: [facility] RN Member Role: Primary Care Nurse Name: Chika Jha RN Position: [facility] SN Signal Mechanic Member Role: Primary Care Nurse Name: Chapito Armstrong RN Position: [facility] RN Member Role: Primary Care Nurse Name: Carmina Rose RN Position: [facility] RN Member Role: Primary Care Nurse Name: Carmen Pace RN Position: [facility] RN Member Role: Primary Care Nurse Name: Leanna King RN Position: [facility] RN Member Role: Primary Care Nurse Care Team Related Persons Name: NO, ONE Name: RONNY ROGERS Address: home [address] [place] [address] Name: KYLE COLEMAN Address: [address] [place] [address]
--- OUTSIDE RECORDS SUMMARY | 2023-04-19 20:26 | XMS_ITS | Continuity of Care Document ---
Author Name Unknown Organization [facility] Adult Address [address] [place] [address]- Care Team Providers Care Research Nutritionist Name Role Phone Clinton LOPEZ, [facility] Primary Care Physician [place] [facility] [place] 02/09/20 [facility] Adult [address] [place] [address]- [facility] Encounter Diagnosis Asthma(Discharge Diagnosis) - 02/02/20 Suspected COVID-19 virus infection(Discharge Diagnosis) - 02/02/20 Acute URI(Discharge Diagnosis) - 02/02/20 Attending Physician: Clinton LOPEZ, [facility] Allergies, Adverse Reactions, Alerts Substance Reaction Severity [...] 14:25:00 EDT, Inhaler, Route to Pharmacy Electronically, [id number], [facility]/pharmacy #[id number], 188, cm, 08/16/19 12:53:00 EST, Height Start Date: 01/31/20 Stop Date: 07/29/20 Status: Ordered allopurinol 300 mg oral tablet See Instructions, TAKE 1 TABLET BY MOUTH EVERY DAY, # 30 tablet, Refills 2, Tot. Refills 2, Maintenance, 08/15/19 12:53:22 EST, Instructions Replace Required Details, Route to Pharmacy Electronically, [id number], [facility]/pharmacy... Start Date: 08/15/19 Status: Ordered amLODIPine 10 mg oral tablet 10 mg, 1, tablet, By Mouth, Daily, # 90 tablet, Refills 3, Tot. Refills 3, Maintenance, 08/16/19 13:22:42 EST, Route to Pharmacy Electronically, [id number], [facility]/pharmacy #[id number] Start Date: 08/16/19 Stop Date: 08/10/20 Status: Ordered atorvastatin 40 mg oral tablet 1 tablet = 40 mg, By Mouth, Daily, # 30 tablet, 5 Refills, Maintenance, 09/13/19 10:10:00 EST, Tablet, [facility]/pharmacy #[id number], 188, cm, 08/16/19 12:53:00 EST, Height Start Date: 09/13/19 Stop Date: 03/11/20 Status: Ordered atorvastatin 40 mg oral tablet 1 tablet = 40 mg, By Mouth, Daily, for 30 days, # 30 tablet, 5 Refills, Physician Stop 04/11/20 12:49:00 EDT, 10/14/19 12:49:00 EST, [facility]/pharmacy #[id number], 188, cm, 08/16/19 12:53:00 EST, Height Start Date: 10/14/19 Stop Date: 04/11/20 Status: Ordered clonazePAM 0.5 mg oral tablet 1 tablet = 0.5 mg, By Mouth, 4 times a day, 0 Refills, Maintenance, 01/23/17 8:38:49 Start Date: 01/23/17 Status: Ordered Flonase 50 mcg/inh nasal spray 1 sprays, Nares, Both, Daily in AM, # 16 Gm, 5 Refills, Maintenance, 01/26/20 14:36:00 EDT, [place], [facility]/pharmacy #[id number], 1 sprays Nares, Both Daily in AM,x30 days, 188, cm, 08/16/19 12:53:00 EST, Height Start Date: 01/26/20 Stop Date: 07/24/20 Status: Ordered gabapentin 600 mg oral tablet 1 tablet, By Mouth, 3 times a day, # 270 tablet, 0 Refills, Maintenance, 11/24/19 13:07:00 EST, [facility]/pharmacy #[id number], 188, cm, 08/16/19 12:53:00 EST, [...] 08/16/19 13:22:41 EST, Route to Pharmacy Electronically, [id number], [facility]/pharmacy #[id number] Start Date: 08/16/19 Stop Date: 08/10/20 Status: Ordered naproxen 500 mg oral tablet 1 tablet, By Mouth, 2 times a day, PRN NEEDED, MODERATE PAIN., # 60 tablet, 0 Refills, Acute, 09/13/19 10:10:00 EST, [facility] STORE [id number], 188, cm, 08/16/19 12:53:00 EST, Height Start Date: 09/13/19 Status: Ordered omeprazole 20 mg oral enteric coated capsule 1 capsule = 20 mg, By Mouth, Daily, Before a meal., # 30 capsule, 2 Refills, Soft Stop, 10/14/19 9:49:00 EST, [facility]/pharmacy #0707, 188, cm, 08/16/19 12:53:00 EST, Height Start Date: 10/14/19 Stop Date: 01/12/20 Status: Ordered infrastructure architect infrastructure architect, See Instructions, # 1 each, Refills 0, Tot. Refills 0, Maintenance, Dx psoas abscess, 01/27/17 14:56:45, Compound Start Date: 01/27/17 Status: Ordered Singulair 10 mg oral tablet 10 mg, By Mouth, Daily at bedtime, # 30 tablet, Refills 5, Tot. Refills 5, Maintenance, 02/03/20 11:32:00 EDT, Route to Pharmacy Electronically, [facility]/pharmacy #[id number], 188, cm, 02/02/20 8:48:00 EDT, Height Start Date: 02/03/20 Stop Date: 08/01/20 Status: Ordered Ventolin HFA 108 mcg/inh inhalation aerosol with adapter 1 puffs, By Mouth, Daily, PRN for wheezing, # 18 Gm, 5 Refills, Soft Stop, 01/07/20 11:13:00 EDT, Aerosol, [facility]/pharmacy #[id number], 188, cm, 08/16/19 12:53:00 EST, Height Start Date: 01/07/20 Stop Date: 07/05/20 Status: Ordered Zithromax 250 mg oral tablet 1 pack/packet, By Mouth, Once, # 6 tablet, 0 Refills, Soft Stop, 02/02/20 9:28:00 EDT, Tablet, [facility]/pharmacy #0993, 188, cm, 02/02/20 8:48:00 EDT, [...] Cl inical Service Informant Asthma Discharge Diagnosis 02/02/20 Suspected COVID-19 virus infection Discharge Diagnosis 02/02/20 Acute URI Discharge Diagnosis 02/02/20 Vital Signs Most recent to oldest [Reference Range]: 1 Height 188 cm (02/02/20 8:48 AM) Social History Social History Type Response Smoking Status Never smoker; Tobacc o user in household: No entered on: 01/23/17 Sex
--- OUTSIDE RECORDS SUMMARY | 2023-04-19 20:26 | XMS_ITS | Continuity of Care Document ---
Author Name Unknown Organization [facility] Address [address] [address]- Care Team Providers Care Media Assistant Name Role Phone Clinton LOPEZ, Pushpa Primary Care Physician Encounter [facility] [place] Date(s): 12/14/20 - 01/26/21 [facility] [address] [place] [address]- Attending Physician: Pramod Toney MD Referring Physician: Reji JAEGER, Faviola Chaparro Allergies, Adverse Reactions, Alerts Substance Reaction Severity Status nafcillin Rash Active lithium Active Remeron [D]Shortness of breath Activ e Geodon Active Immunizations Given and Recorded Vaccine Date Status Refusal Reason influenza virus vaccine, inactivated 10/01/18 Davin rded pneumococcal 23-valent vaccine 1 05/13/18 Given 1Result Comment: [facility] [id number] Medications Advair Diskus 500 mcg-50 mcg inhalation powder 1, puffs, Inhalation, 2 times a day, # 60 each, Refills 5, Tot. Refills 5, Maintenance, 09/25/20 9:05:00 EST, Inhaler, Route to Pharmacy Electronically, [id number], [facility]/pharmacy #[id number], 188, cm, 05/24/20 9:00:00 EDT, Height, 7... Start Date: 09/25/20 Stop Date: 03/24/21 Status: Ordered amLODIPine 10 mg oral tablet 1 tablet, By Mouth, Daily, # 90 tablet, 1 Refills, Maintenance, 01/18/21 12:28:00 EDT, [id number], 188, cm, 01/04/21 13:38:00 EDT, Height, 78.9, kg, 03/15/20 8:08:00 EDT, Dry Weight Start Date: 01/18/21 Status: Ordered clonazePAM 0.5 mg oral tablet 1 tablet = 0.5 mg, By Mouth, 3 times a day, PRN Anxiety, TAKE 1 TABLET BY MOUTH THREE TIMES A DAY NEEDED, # 30 tablet, 2 Refills, Maintenance, 03/16/20 16:23:00 EDT, Tablet, [facility]/pharmacy #[id number], 188, cm, 03/16/20 15:37:00 EDT, Height, 78.9, kg, 02/21... Start Date: 03/16/20 Stop Date: 04/15/20 Status: Ordered gabapentin 600 mg oral tablet 1 tablet, By Mouth, 3 times a day, # 42 tablet, 1 Refills, Maintenance, 03/16/20 16:23:00 EDT, [facility]/pharmacy #[id number], 188, cm, 03/16/20 15:37:00 [...] 08/16/19 13:22:41 EST, Route to Pharmacy Electronically, [id number], [facility]/pharmacy #0993 Start Date: 08/16/19 Stop [...] 12/28/20 8:38:00 EDT, Route to Pharmacy Electronically, [facility] STORE [id number], 188, cm,10/20/20 12:25:00 EST, Height, 78.9, kg, 03/15/20 8... Start Date: 12/28/20 Status: Ordered documentation lead documentation lead, See Instructions, # 1 each, Refills 0, Tot. Refills 0, Maintenance, Dx psoas abscess, 01/27/17 14:56:45, Compound Start Date: 01/27/17 Status: Ordered Singulair 10 mg oral tablet 10 mg, By Mouth, Daily at bedtime, # 30 tablet, Refills 5, Tot. Refills 5, Maintenance, 08/01/20 11:32:00 EST, Route to Pharmacy Electronically, [facility]/pharmacy #[id number], 188, cm, 05/24/20 9:00:00 EDT, Height, [...] Refills, Soft Stop, 01/07/20 11:13:00 EDT, Aerosol, [facility]/pharmacy #[id number], 188, cm, 08/16/19 12:53:00 [...]
--- NOTE | 2023-04-19 20:49 | MHC.EDTECH ---
Patient refused labs this tech told rn
--- NOTE | 2023-04-19 20:53 | PC.NURSE ---
Pt requesting for discharge. MD aware.
[2023-04-19 21:34] VITALS: BP 133/77; PULSE 75; RESP 17; TEMP 37.2; O2SAT 96
[2023-04-19 22:00] VITALS: BP 126/76; PULSE 67; RESP 14; O2SAT 96
== END 2023-04-19 23:39 | disposition home or self-care (01) ==
PROVIDERS: Emergency Provider Emergency Medicine Emergency Medical Services
DX: T40.1X1A Poisoning by heroin, accidental (unintentional), initial encounter (principal); R40.4 Transient alteration of awareness; Y92.9 Unspecified place or not applicable; F19.10 Other psychoactive substance abuse, uncomplicated; Z79.899 Other long term (current) drug therapy
CPT/HCPCS: 93005; 99285

== ENCOUNTER → 2023-04-19 18:51 | Outpatient (BNV) | payer MEDICARE, MEDICAID, SELFPAY | PROVIDERS: Emergency Provider Emergency Medicine Emergency Medical Services; Visit Provider Internal Medicine Cardiovascular Disease | DX: R94.31 Abnormal electrocardiogram [ECG] [EKG] (principal) | CPT/HCPCS: 93010 ==

== ENCOUNTER 2023-08-09 12:50 | Inpatient (IN) | payer MEDICARE, MEDICAID, SELFPAY ==
[2023-08-09] VITALS (7 sets, daily range): BP systolic 127–206; BP diastolic 67–106; PULSE 50–78; RESP 13–20; TEMP 36.4–37.2; O2SAT 95–99; BMI 21.4
--- NOTE | ~2023-08-09 | US_ITS ---
EXAMINATION: US VENOUS ULTRASOUND WITH DOPPLER LOWER EXTREMITY, LEFT CLINICAL INFORMATION: Pain and swelling COMPARISON: None available. TECHNIQUE: Ultrasound of the deep veins is performed from the hip to the calf with compression sonography and color and pulse Doppler assessment. Spectral analysis with color-flow imaging is performed. FINDINGS: There is normal venous compression and respiratory variation and augmented flow. The visualized common femoral vein, superficial femoral vein, profunda femoral vein, popliteal vein, and the trifurcation region shows no evidence of deep venous thrombosis. There is no significant popliteal fossa cyst. . If the patient's symptoms persist, followup ultrasound in 5 days 7 days might be of value to exclude proximal propagation from a non-visualized calf vein. Enlarged left groin lymph nodes, including a lymph node measuring 1.4 cm in short axis. US/US venous duplex LE LT IMPRESSION: No DVT demonstrated in the left lower extremity. Nonspecific enlarged left groin lymph nodes.
--- NOTE | ~2023-08-09 | XR_ITS ---
EXAMINATION: XR FOOT, LEFT CLINICAL INFORMATION: Pain and swelling COMPARISON: None available. TECHNIQUE: AP, lateral, and oblique views of the left foot. FINDINGS: There is a comminuted fracture with osteolysis of the head of the proximal phalanx second toe, surrounding soft tissue swelling, could be sequela of injury and/or osteomyelitis. No subcutaneous emphysema. Other toes intact. Degenerative arthritis intertarsal level. XR/XR foot LT min 3V IMPRESSION: * Comminuted fracture with osteolysis of the head of the proximal phalanx second toe, could be sequela of injury and/or superimposed osteomyelitis, please correlate with patient's clinical history.
--- NOTE | ~2023-08-09 | CT_ITS ---
EXAMINATION: CT FOOT WITH CONTRAST, LEFT CLINICAL INFORMATION: Swelling COMPARISON: Foot radiographs 08/09/2023 TECHNIQUE: Multidetector volumetric imaging was performed of the foot following administration of 85 mL Omnipaque 350 intravenous contrast. Sagittal and coronal reformatted images were obtained on the technologist's workstation. This CT examination was performed using dose optimization techniques as appropriate, variously including the following: *Automated exposure control *Adjustment of mA and/or kV according to patient size (this includes techniques or standardized protocols for targeted exams where dose is matched to indication/reason for exam; i.e. extremities or head) *Use of iterative reconstruction technique DLP: 161 mGy-cm FINDINGS: Diffuse subcutaneous edema about the foot, worst involving the second middle phalanx and there is a small focus of low attenuation not quite measuring simple fluid with foci of gas suggesting phlegmon/developing abscess measuring 1.3 cm no tibiotalar joint effusion., 8:45, along the lateral aspect of the second PIP joint. Moderate degenerative changes of the foot with osteophytosis of the dorsal midfoot, loss of talonavicular joint space well-corticated osseous fragment along the medial aspect of the anterior aspect of the talus or possibly remote avulsion injury. Accessory navicular ossicles. Comminuted fracture with osteolysis of the head of the proximal phalanx second toe, could be sequela of injury and/or superimposed osteomyelitis, an MRI could be considered for further evaluation. CT/CT foot LT w IV con IMPRESSION: 1. Diffuse subcutaneous edema about the foot, worst involving the second middle phalanx and there is a small focus of low attenuation not quite measuring simple fluid with foci of gas suggesting phlegmon/developing abscess measuring 1.3 cm. 2. Comminuted fracture with osteolysis of the head of the proximal phalanx second toe, could be sequela of injury and/or superimposed osteomyelitis, an MRI could be considered for further evaluation.
[2023-08-09 13:32] LABS: MANUAL DIFF FLAG NO
[2023-08-09 13:41] LABS: Basophils Percent Auto 0.3 % (0-2); Eosinophils Absolute Auto 0.2 X10*3/uL (0.0-0.4); Eosinophils Percent Auto 2.4 % (0-4); Hematocrit 30.9 % (42.0-52.0); Hemoglobin 10.3 g/dl (14.0-18.0); Imm Gran Abs Auto 0.02 X10*3/uL (0.00-0.03); Imm Gran Pct Auto 0.3 % (0.0-0.4); Lymphocytes Absolute Auto 0.6 X10*3/uL (1.2-4.9); Lymphocytes Percent Auto 10.1 % (20-40); Mean Corpuscular HGB Conc 33.3 g/dl (31.0-36.0); Mean Corpuscular Hemoglobin 30.4 pg (27.0-33.0); Mean Corpuscular Volume 91.2 fL (80.0-98.0); Mean Platelet Volume 10.1 fL (9.4-12.4); Monocytes Absolute Auto 0.6 X10*3/uL (0.1-1.2); Monocytes Percent Auto 9.3 % (2-11); Neutrophils Absolute Auto 4.9 x10*3/uL (2.0-8.3); Neutrophils Percent Auto 77.6 % (45-73); Platelet Count 131 X10*3/uL (160-400); Red Blood Count 3.39 X10*6/uL (4.60-5.80); Red Cell Distribution Width 14.4 % (11.0-16.0); White Blood Count 6.4 X10*3/uL (4.8-10.8)
--- NOTE | 2023-08-09 13:45 | ED.SKABFB ---
HPI - Skin/Abscess/Foreign Bdy General Chief complaint: Extremity Injury, Lower Stated complaint: LLE PAIN/SWELLING PER EMS Time Seen by Provider: 08/09/23 13:03 Source: patient Mode of arrival: EMS Limitations: no limitations History of Present Illness HPI narrative: 63 yo male with PMH of HTN, homeless x 2 days, active IV cocaine and heroin abuse notes L foot is red swollen and painful x 2 weeks - he has pus coming out of the 2nd digit. He states he has no fevers but he can barely walk right now. He does not take any of his medications. MD complaint: rash, abscess/boil and lesion Onset (ago): week(s) (1) Location: LLE and L foot Severity: moderate Quality: aching Pain Consistency: constant Relieving factors: rest Exacerbating factors: none Context: other (states he had a callout that became infected) Associated symptoms: denies other symptoms Treatments prior to arrival: none Related Data Home Medications Medication Instructions Recorded Confirmed albuterol sulfate 90 mcg/actuation 1 inh inhalation DAILY PRN 08/09/23 08/09/23 aerosol inhaler Shortness Of Breath Or Wheezing amlodipine 10 mg tablet 10 mg PO DAILY 08/09/23 08/09/23 fluticasone 500 mcg-salmeterol 50 1 ea inhalation BID 08/09/23 08/09/23 mcg/dose blistr powdr for inhalation (Advair Diskus) gabapentin 600 mg tablet 600 mg PO TID 08/09/23 08/09/23 hydroxyzine HCl 50 mg tablet 50 mg PO TID 08/09/23 08/09/23 losartan 25 mg tablet 25 mg PO DAILY 08/09/23 08/09/23 montelukast 10 mg tablet 10 mg PO DAILY 08/09/23 08/09/23 quetiapine 25 mg tablet 25 mg PO BEDTIME 08/09/23 08/09/23 trazodone 50 mg tablet 50 mg PO BEDTIME 08/09/23 08/09/23 Allergies Allergy/AdvReac Type Severity Reaction Status Date / Time No Known Allergies Allergy Verified 08/09/23 13:39 Review of Systems Review of Systems: Constitutional : No Fever, No Chills ENT/Mouth : No sore throat, No Rhinorrhea Eyes: No Eye Pain, No Swelling, No Redness Cardiovascular : No Chest Pain, No SOB, pos edema Respiratory : No Cough, No Sputum Gastrointestinal : No Nausea, No Vomiting, No Diarrhea, No abdominal Pain Genitourinary : No Dysuria, No Hematuria Musculoskeletal : No joint pain, No Myalgias, No Joint Swelling Skin : pos Skin Lesions, positive skin rash Neuro : No Weakness, No Numbness, No Headache Psych : No Anxiety, No Depression Heme/Lymph: No Bruising, No Bleeding,No Lymphadenopathy Endocrine : No Polyuria, No Polydipsia All other systems reviewed and are negative [facility] Past Medical History Attestation statement: The following information was validated with the patient. Medical History (Updated 08/09/23 @ 16:54 by SABINO Dela Cruz) Bipolar disorder Aneurysm of descending thoracic aorta Hepatitis C Rheumatoid arthritis Active substance abuse HTN (hypertension) Social History Social History Patient Tobacco Use Status: Never used Tobacco Smoked in Last 30 Days: Yes Use of substances other than those prescribed or required for medical reasons: Yes Substance Use Type: Crack/Cocaine and Marijuana Substance Use Frequency: Monthly Advance Directives: No Advance Directives Information Provided: No Nutrition Risks: No Nutritional Risk Physical Exam Vital Signs: Vital Signs: Last Vital Signs Temp 98.9 F 08/09/23 16:38 Pulse 51 08/09/23 16:38 Resp 13 08/09/23 16:38 BP 132/77 08/09/23 16:38 Pulse Ox 99 08/09/23 16:38 O2 Del Method Room Air 08/09/23 14:37 BMI result Body Mass Index 21.4 Appearance: Alert. Oriented X3. No acute distress. Eyes: Pupils equal, round and reactive to light. ENT: Pharynx normal. Neck: Normal inspection. Neck supple. CVS: Normal heart rate and rhythm. Pulses normal. Respiratory: No respiratory distress. Breath sounds normal. Abdomen: Soft and nontender. Skin: Skin warm and dry. Normal skin color. Normal skin turgor. Extremities: left leg is swollen and reddened with erythema from toes to 2nd digit up to knee it is warm and swollen 2+ pitting edema, distal pulses intact, 2nd great toe is swollen boggy and has purulence draingin from dorsum that I can express and squeeze out he tells me he can feel the wound. No crepitus felt Neuro: Oriented X 3. No motor deficit. No sensory deficit. Course Course Course Narrative: Dr. Shah aware states he will take care of it start on vanco and zosyn Medications Administered Discontinued Medications Generic Name Dose Route Start Last Admin Trade Name Shiv PRN Reason Stop Dose Admin Piperacillin Sod/Tazobactam 50 mls @ 100 mls/hr 08/09/23 13:39 08/09/23 14:27 Sod 3.375 gm/ Sodium Chloride IV 08/09/23 14:08 Infused ONCE ONE Infusion Vancomycin HCl 2,000 mg in 500 mls @ 250 mls/hr 08/09/23 13:39 08/09/23 16:39 Vancomycin/Ns IV 08/09/23 15:38 Infused ONCE ONE Infusion Sodium Chloride 1,000 mls @ 999 mls/hr 08/09/23 14:30 08/09/23 15:29 Ns IV 08/09/23 15:30 Infused .Q1H1M ROMERO Infusion Methadone HCl 20 mg 08/09/23 13:40 08/09/23 13:57 Methadone Hcl 10 Mg Tablet PO 08/09/23 13:41 20 mg ONCE ONE Administration Medical Decision Making Medical Decision Making [facility] Narrative: 63 yo male with PMH of IVDA, HTN, here with c/o left leg cellulitis, swelling and toe abscess that is already draining he is NV intact. At this time labs, cultures, xray for osteo, DVT study, empiric antibiotics and admission. Differential Diagnosis Differential Diagnoses: The differential diagnosis associated with the presentation includes cellulitis, abscess, DVT Admission/Observation Consideration of admission/observation: Escalation of care including admission/observation considered admit for IV antibiotics Consult Healthcare Provider Management of the patient was discussed with: Hospitalist Lab Data [facility] Lab Attestation statement: I reviewed the patient's lab results. 08/09/23 13:21 08/09/23 13:21 Labs: Lab Results 08/09/23 Range/Units 13:21 WBC 6.4 (4.8-10.8) X10*3/uL RBC 3.39 L (4.60-5.80) X10*6/uL Hgb 10.3 L (14.0-18.0) g/dl Hct 30.9 L (42.0-52.0) % MCV 91.2 (80.0-98.0) fL MCH 30.4 (27.0-33.0) pg MCHC 33.3 (31.0-36.0) g/dl RDW 14.4 (11.0-16.0) % Plt Count 131 L (160-400) X10*3/uL MPV 10.1 (9.4-12.4) fL Immature Gran % (Auto) 0.3 (0.0-0.4) % Neut % (Auto) 77.6 H (45-73) % Lymph % (Auto) 10.1 L (20-40) % Garfield % (Auto) 9.3 (2-11) % Eos % (Auto) 2.4 (0-4) % Baso % (Auto) 0.3 (0-2) % Lymph # (Auto) 0.6 L (1.2-4.9) X10*3/uL Garfield # (Auto) 0.6 (0.1-1.2) X10*3/uL Eos # (Auto) 0.2 (0.0-0.4) X10*3/uL Baso # (Auto) 0.0 (0.0-0.2) X10*3/uL Abs Immat Gran (auto) 0.02 (0.00-0.03) X10*3/uL Absolute Neuts (auto) 4.9 (2.0-8.3) x10*3/uL Absolute Nucleated RBC 0.000 (0.0-0.012) X10*3/uL Nucleated RBC % (auto) 0.0 (0.0-0.2) /100WBC Sodium 137 (135-145) mmol/L Potassium 3.8 (3.3-5.1) mmol/L Chloride 102 (96-108) mmol/L Carbon Dioxide 27 (22-29) mmol/L Anion Gap 12 (12-20) BUN 15 (9-16) mg/dL Creatinine 0.88 (0.5-1.4) mg/dL Estim Creat Clear Calc 90.8 Estimated GFR > 60 Random Glucose 113 (60-115) mg/dL Lactic Acid 0.9 (0.5-2.0) mmol/L Calcium 8.6 (8.4-10.2) mg/dL Magnesium 1.9 (1.6-2.6) mg/dL Total Bilirubin 0.5 (0.0-1.0) mg/dL AST 82 H (5-37) U/L ALT 73 H (0-40) U/L Alkaline Phosphatase 73 (39-117) U/L Total Creatine Kinase 398 H (38-174) U/L C-Reactive Protein 2.41 H (< or = 0.50) mg/dL Total Protein 6.9 (6.5-8.0) g/dL Albumin 3.3 L (3.5-5.0) g/dL Independent Interpretation I performed an independent interpretation of an: Plain X-Ray and Ultrasound (no DVT) Radiology Impression Discussion of test interpretation with radiology: I have reviewed the radiologist's reading. Social Determinants Patient?s care significantly limited by Social Determinants of Health including: Inadequate housing, Low income, Problems related to primary support group and Unemployment Discharge Plan Discharge Clinical Impression: Cellulitis Qualifiers: Site of cellulitis: extremity Site of cellulitis of extremity: lower extremity Laterality: left Qualified Code(s): L03.116 - Cellulitis of left lower limb Abscess of toe Qualifiers: Laterality: left Qualified Code(s): L02.612 - Cutaneous abscess of left foot Fracture of toe Qualifiers: Encounter type: initial encounter Toe: lesser toe Fracture type: closed Phalanx: distal Fracture alignment: displaced Laterality: left Qualified Code(s): S92.532A - Displaced fracture of distal phalanx of left lesser toe(s), initial encounter for closed fracture Patient Disposition: Admitted As Inpatient
[2023-08-09 13:48] LABS: Lactic Acid 0.9 mmol/L (0.5-2.0)
[2023-08-09] MEDS: Piperacillin Sodium/Tazobactam 3.375 GM in 0.9 % Sodium Chloride 50 ML IV ×2 (13:57→20:37)
[2023-08-09] MEDS: methADONE HCl 10 MG TABLET 20 MG PO (13:57)
[2023-08-09 14:02] LABS: Alanine Aminotransferase 73 U/L (0-40); Albumin Level 3.3 g/dL (3.5-5.0); Alkaline Phosphatase 73 U/L (39-117); Anion Gap 12 (12-20); Aspartate Amino Transferase 82 U/L (5-37); Bilirubin Total 0.5 mg/dL (0.0-1.0); Blood Urea Nitrogen 15 mg/dL (9-16); Calcium 8.6 mg/dL (8.4-10.2); Carbon Dioxide 27 mmol/L (22-29); Chloride 102 mmol/L (96-108); Creatinine Clr Calc Pharmacy 90.8; Estimated Glomerular Filt Rate > 60; Glucose Random 113 mg/dL (60-115); Potassium 3.8 mmol/L (3.3-5.1); Sodium 137 mmol/L (135-145); Total Protein 6.9 g/dL (6.5-8.0)
[2023-08-09 14:04] LABS: Magnesium 1.9 mg/dL (1.6-2.6)
[2023-08-09] MEDS: vancomycin/NS 2,000 MG/500 ML PLAST..BAG 250 MG IV (14:36)
[2023-08-09] MEDS: 0.9 % Sodium Chloride 1,000 ML 999 ML IV (14:37)
--- NOTE | 2023-08-09 15:01 | PC.NURSE ---
Late entry: 20g IV placed in LFA, all medications administered per MAR Patient sleeping, respirations even and unlabored, skin pwd, no apparent distress at this time
--- NOTE | 2023-08-09 15:50 | PM.IMHP ---
History of Present Illness Date of Service: 08/09/23 Attending physician on admission: Simon Vera Chief Complaint: Left lower leg and 2nd toe swelling and redness Pt is a 63-year-old male with a PMH significant for?HTN, rheumatoid arthritis, hepatitis-C, aneurysm of descending thoracic aorta, and bipolar disorder who presents to the ED for evaluation of redness and swelling of left lower extremity with drainage from 2nd toe on left foot. Patient is a rather poor historian providing vague and sometimes contradictory information. Apparently patient hit his left foot on something a few weeks ago and ever since then has had worsening swelling and redness both in toe and left lower extremity. States he has been walking and walking and walking all the time . Left second toe started draining 1-2 days ago. Denies any pain in the extremity or foul-smelling discharge. Denies any other systemic acute complaint: No fever, chills, nausea, vomiting, diarrhea, abdominal pain. Denies chest pain/pressure, palpitations. No shortness of breath. Unclear if pt is homeless, but does admit to snorting heroin and cocaine occasionally . Denies IVDU. Also denies alcohol use or smoking. In the ED pt was afebrile with mildly elevated BP of 147/72, satting at 99% on RA. Labs were significant for H&H of 10.3/30.9, AST 82, ALT 73, CPK 398. No leukocytosis. Electrolytes WNL per renal function WNL. Lactic acid 0.9. Left foot x-ray showed comminuted fracture with osteolysis the head of the proximal phalanx of the 2nd toe with possible superimposed osteomyelitis. CT of left lower extremity pending. Pt was treated with vancomycin, Zosyn, and methadone 20 mg. ED physician contacted both vascular surgery and General surgery. Pt will be admitted to the hospital for treatment and further evaluation of left lower leg cellulitis concerning for abscess of 2nd toe concerning for osteomyelitis. Review of Systems Review of Systems: Redness and swelling of left lower extremity Purulent discharge from 2nd toe of left foot Patient denies pain to the area No fever, chills, nausea, vomiting, diarrhea, abdominal pain Denies chest pain/pressure, palpitations No shortness of breath FORMERLY [facility], [facility] Medical History (Updated 08/09/23 @ 16:54 by SABINO Dela Cruz) Bipolar disorder Aneurysm of descending thoracic aorta Hepatitis C Rheumatoid arthritis Active substance abuse HTN (hypertension) Social History Household Members: None Housing: Homeless Do you presently have visiting nurse or other home services: No Patient Tobacco Use Status: Current everyday Tobacco user Tobacco use type: Cigarette Cigarette Packs Per Day: 2 Cigarettes Per Day: 40.0 Smoked in Last 30 Days: Yes e-Cigarette/Vaping Use: Currently Using Patient Interested in Nicotine Replacement: Yes Patient Given Instructions on How to Stop Smoking: No Second Hand Smoke Exposure: Yes Use of substances other than those prescribed or required for medical reasons: Yes Substance Use Type: Heroin Substance Use Frequency: Occasionally Last Used Substance: Weeks (ago) Currently Displaying Signs/Symptoms of Drug Intoxication Withdrawal: Yes Have you been hit, kicked, punched, or otherwise hurt by someone within the past year? If so, by whom?: No Do you feel safe in your current relationship?: No Current Relationship Is there a partner from a previous relationship who is making you feel unsafe now?: No Are you made to feel afraid or neglected: No Advance Directives: No Advance Directives Information Provided: No Do you have thoughts of harming others: None Do you have a plan to hurt others: No Plan Recently lost weight without trying: No Eating poorly because of decreased appetite: No Nutrition Risks: No Nutritional Risk Meds Allergies Allergy/AdvReac Type Severity Reaction Status Date / Time No Known Allergies Allergy Verified 08/09/23 13:39 Home Medications Medication Instructions Recorded Confirmed Last Taken Type albuterol sulfate 90 mcg/actuation 1 inh inhalation DAILY PRN 08/09/23 08/09/23 Unknown History aerosol inhaler Shortness Of Breath Or Wheezing amlodipine 10 mg tablet 10 mg PO DAILY 08/09/23 08/09/23 1 Week Ago History ~08/02/23 fluticasone 500 mcg-salmeterol 50 1 ea inhalation BID 08/09/23 08/09/23 1 Week Ago History mcg/dose blistr powdr for ~08/02/23 inhalation (Advair Diskus) gabapentin 600 mg tablet 600 mg PO TID 08/09/23 08/09/23 1 Week Ago History ~08/02/23 hydroxyzine HCl 50 mg tablet 50 mg PO TID 08/09/23 08/09/23 1 Week Ago History ~08/02/23 losartan 25 mg tablet 25 mg PO DAILY 08/09/23 08/09/23 1 Week Ago History ~08/02/23 montelukast 10 mg tablet 10 mg PO DAILY 08/09/23 08/09/23 1 Week Ago History ~08/02/23 quetiapine 25 mg tablet 25 mg PO BEDTIME 08/09/23 08/09/23 1 Week Ago History ~08/02/23 trazodone 50 mg tablet 50 mg PO BEDTIME 08/09/23 08/09/23 1 Week Ago History ~08/02/23 Physical Exam Vital Signs and Narrative: Vital Signs: Last Vital Signs Temp 98.1 F 08/09/23 14:37 Pulse 50 08/09/23 14:37 Resp 16 08/09/23 14:37 BP 127/69 08/09/23 14:37 Pulse Ox 99 08/09/23 14:37 O2 Del Method Room Air 08/09/23 14:37 BMI result Body Mass Index 21.4 General: AOx3, no acute distress Resp: CTA bilaterally CVS: S1, S2, RRR GI: +BS, NT, no distention Skin: Warm, dry Neuro: Cranial nerves II-XII grossly intact bilaterally. Motor grossly intact bilaterally Extremities: Diffuse erythema, warmth, 2+ pitting edema of left lower extremity. Left 2nd digit with significant swelling erythema, macerated flash, and purulent discharge. As pictured below. Psych: Appropriate affect Results Labs 08/10/23 07:41 08/10/23 07:41 Labs: Laboratory Results - last 24 hr 08/09/23 13:21 MCV 91.2 MCH 30.4 MCHC 33.3 RDW 14.4 Plt Count 131 L MPV 10.1 Immature Gran % (Auto) 0.3 Neut % (Auto) 77.6 H Lymph % (Auto) 10.1 L Patrick % (Auto) 9.3 Eos % (Auto) 2.4 Baso % (Auto) 0.3 Lymph # (Auto) 0.6 L Patrick # (Auto) 0.6 Eos # (Auto) 0.2 Baso # (Auto) 0.0 Abs Immat Gran (auto) 0.02 Absolute Neuts (auto) 4.9 Absolute Nucleated RBC 0.000 Nucleated RBC % (auto) 0.0 Anion Gap 12 Estim Creat Clear Calc 90.8 Estimated GFR > 60 Random Glucose 113 Lactic Acid 0.9 Calcium 8.6 Magnesium 1.9 Total Bilirubin 0.5 AST 82 H ALT 73 H Alkaline Phosphatase 73 Total Creatine Kinase 398 H Total Protein 6.9 Albumin 3.3 L Imaging Radiologist's Impressions: Impressions Foot X-Ray 08/09/23 13:55 IMPRESSION: * Comminuted fracture with osteolysis of the head of the proximal phalanx second toe, could be sequela of injury and/or superimposed osteomyelitis, please correlate with patient's clinical history. Assessment and Plan (1) Cellulitis: Qualifiers: Laterality: left Site of cellulitis: extremity Site of cellulitis of extremity: lower extremity Qualified Code(s): L03.116 - Cellulitis of left lower limb Status: Acute (2) Fracture of toe: Qualifiers: Encounter type: initial encounter Fracture alignment: displaced Fracture type: closed Laterality: left Phalanx: distal Toe: lesser toe Qualified Code(s): S92.532A - Displaced fracture of distal phalanx of left lesser toe(s), initial encounter for closed fracture Status: Acute Plan Pt is a 63-year-old male with a PMH significant for?HTN, rheumatoid arthritis, hepatitis-C, aneurysm of descending thoracic aorta, and bipolar disorder who presents to the ED for evaluation of redness and swelling of left lower extremity with drainage from 2nd toe on left foot. Cellulitis of left lower extremity concerning for abscess and possible osteomyelitis of 2nd digit of left foot X-ray of left foot showed comminuted fracture with osteolysis at the head of the proximal phalanx of 2nd toe with possible superimposed osteomyelitis CT of left lower extremity pending Pt does not meet sepsis criteria Will treat with vancomycin and Zosyn, started 08/09/2020 Analgesics for pain management Will place maintenance fluids Vascular surgery consult Cocaine and opioid use disorder Patient given methadone 20 mg in ED Addiction Medicine consult HTN Continue home meds Hepatitis-C Mild transaminitis Patient asymptomatic Follow-up outpatient for treatment Mood disorder Continue home meds Patient needs to establish outpatient care with psychiatrist Full Code Attending:?Dr. Vera DVT Prophylaxis: Heparin Pt will require a hospitalization of at least two nights for treatment of?left lower extremity cellulitis with concerns for osteomyelitis and abscess of 2nd digit of left foot. Patient required IV antibiotics as specialist consultation. Quality Stroke Does the patient have a stroke diagnosis?: No VTE Prior VTE?: No VTE Risk Level:: Medical - moderate - high VTE Device Contraindication: Treatment Not Indicated VTE Drug Contraindication: N/A - Med Ordered
[2023-08-09 16:48] LABS: C Reactive Protein 2.41 mg/dL (< or = 0.50)
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
[2023-08-09 17:26] LABS: Erythrocyte Sedimentation Rate 29 MM/HR (0-15)
[2023-08-09] MEDS: iohexoL 350 MG/ML 100 ML INFUS..BTL 85 ML IV (18:06)
--- NOTE | 2023-08-09 19:14 | MHC.EDTECH ---
This tech took over care of patient at 1900, when entered patients room ,patient had 1300MLS of urine in urinal, hourly rounds and vitals completed,Patient urinated another 300MLS,this tech collected a UDS per order. Belonging list completed , patient has 40.00 L[place] in back pocket of sweatpants, copy placed in chart. Patient has a room at this time,waiting for report to be given.
[2023-08-09] MEDS: Lactated Ringers 1,000 ML 80 ML IVCONT (19:17)
[2023-08-09] MEDS: Heparin Sodium,Porcine 5,000 UNIT/ML VIAL 5000 UNIT SUBCUT (19:17)
[2023-08-09 19:34] LABS: Amphetamine Screen Urine Not Detected (Not Detect); Barbiturates, Urine Not Detected (Not Detect); Benzodiazepines Screen Urine Not Detected (Not Detect); Cannabinoid Screen Urine Not Detected (Not Detect); Cocaine Screen Urine POSITIVE (Not Detect); Fentanyl, urine POSITIVE (Not Detect); Opiate Screen Urine Not Detected (Not Detect); Phencyclidine Screen Urine Not Detected (Not Detect)
[2023-08-09] MEDS: Gabapentin 600 MG TABLET PO (20:37)
[2023-08-09] MEDS: traZODone HCL 50 MG TABLET PO (20:37)
[2023-08-09] MEDS: hydrOXYzine HCL 50 MG TABLET PO (20:37)
[2023-08-09] MEDS: QUEtiapine Fumarate 25 MG TABLET PO (20:37)
[2023-08-09] MEDS: vancomycin HCL 1,000 MG in 0.9 % Sodium Chloride 250 ML 270 MG IV (20:40)
[2023-08-09] MEDS: LORazepam 2 MG/ML VIAL 1 MG IVPUSH (23:41)
--- NOTE | 2023-08-09 23:43 | MHC.PIE ---
p; pt requesting methadone for withdrawl. i; dr briones notified. new order ativan now. e; will cont to monitor
--- NOTE | 2023-08-10 | ECG_ITS ---
Test Reason : methadone titration Blood Pressure : / mmHG Vent. Rate : 062 BPM Atrial Rate : 062 BPM P-R Int : 148 ms QRS Dur : 094 ms QT Int : 466 ms P-R-T Axes : 098 168 113 degrees QTc Int : 472 ms Suspect limb lead reversal, interpretation assumes no reversal Normal sinus rhythm RSR' or QR pattern in V1 suggests right ventricular conduction delay Possible Left atrial enlargement Right axis deviation Abnormal ECG No previous ECGs available advise repeat study Referred By: Kelsie Boyd Electronically Signed By:SUNSHINE COLBY MD
[2023-08-10] MEDS: Piperacillin Sodium/Tazobactam 3.375 GM in 0.9 % Sodium Chloride 50 ML IV ×4 (04:26→19:39)
[2023-08-10] MEDS: Heparin Sodium,Porcine 5,000 UNIT/ML VIAL 5000 UNIT SUBCUT ×3 (04:27→17:07)
[2023-08-10 07:19] VITALS: BP 148/80; PULSE 53; RESP 16; TEMP 36.6
[2023-08-10 07:52] LABS: Hematocrit 32.4 % (42.0-52.0); Hemoglobin 10.9 g/dl (14.0-18.0); Mean Corpuscular HGB Conc 33.6 g/dl (31.0-36.0); Mean Corpuscular HGB Conc 34.4 g/dl (31.0-36.0); Mean Corpuscular Hemoglobin 31.2 pg (27.0-33.0); Mean Corpuscular Volume 89.3 fL (80.0-98.0); Mean Corpuscular Volume 90.7 fL (80.0-98.0); Mean Platelet Volume 9.5 fL (9.4-12.4); Platelet Count 123 X10*3/uL (160-400); Platelet Count 127 X10*3/uL (160-400); Red Blood Count 3.53 X10*6/uL (4.60-5.80); Red Blood Count 3.63 X10*6/uL (4.60-5.80); Red Cell Distribution Width 14.1 % (11.0-16.0); White Blood Count 6.2 X10*3/uL (4.8-10.8); White Blood Count 6.4 X10*3/uL (4.8-10.8)
[2023-08-10 08:06] LABS: Vancomycin Random 14.3 mcg/mL (15-20)
[2023-08-10 08:08] LABS: Anion Gap 11 (12-20); Blood Urea Nitrogen 8 mg/dL (9-16); Calcium 8.9 mg/dL (8.4-10.2); Carbon Dioxide 27 mmol/L (22-29); Chloride 103 mmol/L (96-108); Creatinine Clr Calc Pharmacy 101.2; Estimated Glomerular Filt Rate > 60; Glucose Random 104 mg/dL (60-115); Potassium 3.4 mmol/L (3.3-5.1); Sodium 138 mmol/L (135-145)
[2023-08-10] MEDS: Losartan Potassium 25 MG TABLET PO (08:17)
[2023-08-10] MEDS: hydrOXYzine HCL 50 MG TABLET PO ×3 (08:17→20:10)
[2023-08-10] MEDS: amLODIPine Besylate 10 MG TABLET PO (08:17)
[2023-08-10] MEDS: Gabapentin 600 MG TABLET PO ×3 (08:17→20:10)
[2023-08-10] MEDS: Montelukast Sodium 10 MG TABLET PO (08:17)
--- NOTE | 2023-08-10 08:33 | HE.PHANOTE ---
vanco level 14.3 after 2 gm loading dose. Per insight, manit dose of 1 gm q12h, next level 08/11/231999
[2023-08-10] MEDS: 0.9 % Sodium Chloride Flush 3 ML SYRINGE IVFLUSH (08:49)
[2023-08-10] MEDS: methADONE HCl 20 MG/2 ML ORAL.CONC 40 MG PO (08:57)
[2023-08-10] MEDS: vancomycin HCL 1,000 MG in 0.9 % Sodium Chloride 250 ML 270 MG IV ×2 (09:30→21:51)
--- NOTE | 2023-08-10 09:49 | P.PNIM_ITS ---
Subjective Subjective Date of Service: 08/10/23 Interval History: Diabetic foot infection, opioid use. Review of Systems Foot cellulitis area-erythem and swelling seems imptoving than yesterday toe chnages seems similar no fever Physical Exam 2 Vital Signs: Vital Signs: Last Vital Signs Temp 97.8 F 08/10/23 07:19 Pulse 53 08/10/23 07:19 Resp 16 08/10/23 07:19 BP 148/80 H 08/10/23 07:19 Pulse Ox 95 08/09/23 23:33 O2 Del Method Room Air 08/09/23 19:43 BMI result Body Mass Index 21.4 Appearance: Alert.? Oriented X3.? not in distress.? cvs: rrr, [id number] , no murmur res: clear to auscultation ,no rhonchii or wheezing abd: no rebound or guarding ,nt, bs present. ext pulses present , no cyanosis. Foot-left foot and leg erythema/swelling improving ,2nd toe seems similar to yesterday neuro: axo3 , nonfocal. Objective Data Active Medications Acetaminophen (Acetaminophen 325 Mg Tablet) 650 mg PO Q6H PRN PRN Reason: Pain, Mild (Pain Scale 1-3) Albuterol Sulfate (Albuterol Sulfate 90 Mcg 8 Gm Inhaler) 1 puff INHALE DAILY PRN PRN Reason: Shortness Of Breath Or Wheezing Amlodipine Besylate (Amlodipine Besylate 10 Mg Tablet) 10 mg PO DAILY [facility]; Protocol Last Admin: 08/10/23 08:17 Dose: 10 mg Documented By: JERONIMO Benzonatate (Benzonatate 100 Mg Capsule) 100 mg PO TID PRN PRN Reason: Cough Docusate Sodium (Docusate Sodium 100 Mg Capsule) 100 mg PO DAILY PRN PRN Reason: Constipation Fluticasone/Vilanterol (Fluticasone/Vilanterol 200/25 Blst.W.Dev) 1 puff INHALE RDAILY [facility] Last Admin: 08/10/23 08:15 Dose: Not Given Documented By: FLORESITA Non-Admin Reason: Patient Asleep Gabapentin (Gabapentin 600 Mg Tablet) 600 mg PO TID [facility] Last Admin: 08/10/23 08:17 Dose: 600 mg Documented By: JERONIMO Heparin Sodium (Porcine) (Heparin Sodium,Porcine 5,000 Unit/Ml Vial) 5,000 unit SUBCUT Q8H [facility] Last Admin: 08/10/23 09:24 Dose: 5,000 unit Documented By: JERONIMO Hydroxyzine HCl (Hydroxyzine Hcl 50 Mg Tablet) 50 mg PO TID [facility] Last Admin: 08/10/23 08:17 Dose: 50 mg Documented By: JERONIMO Lactated Ringer's (Lr) 1,000 mls @ 80 mls/hr IVCONT .[id number] [facility] Last Admin: 08/10/23 04:28 Dose: Not Given Documented By: ALLEN Non-Admin Reason: IV Running Piperacillin Sod/Tazobactam (Sod 3.375 gm/ Sodium Chloride) 50 mls @ 100 mls/hr IV Q6H [facility] Last Infusion: 08/10/23 09:22 Dose: Infused Documented By: JERONIMO Vancomycin HCl 1,000 mg/ (Sodium Chloride) 270 mls @ 270 mls/hr IV Q12H [facility] Last Admin: 08/10/23 09:30 Dose: 270 mls/hr Documented By: JERONIMO Losartan Potassium (Losartan Potassium 25 Mg Tablet) 25 mg PO DAILY [facility]; Protocol Last Admin: 08/10/23 08:17 Dose: 25 mg Documented By: JERONIMO Melatonin (Melatonin 3 Mg Tablet) 6 mg PO BEDTIME PRN PRN Reason: Insomnia Montelukast Sodium (Montelukast Sodium 10 Mg Tablet) 10 mg PO DAILY [facility] Last Admin: 08/10/23 08:17 Dose: 10 mg Documented By: JERONIMO Ondansetron HCl (Ondansetron Hcl 4 Mg/2 Ml Vial) 4 mg IVPUSH Q8H PRN PRN Reason: Nausea and Vomiting Pharmacy Consult (Consult Rx Vancomycin Dosing) 1 each MISCELLANE DAILY PRN PRN Reason: Consult order Quetiapine Fumarate (Quetiapine Fumarate 25 Mg Tablet) 25 mg PO BEDTIME [facility] Last Admin: 08/09/23 20:37 Dose: 25 mg Documented By: ALLEN Sodium Chloride (0.9 % Sodium Chloride Flush 3 Ml Syringe) 3 ml IVFLUSH QSHIFT [facility] Last Admin: 08/10/23 08:49 Dose: 3 ml Documented By: JERONIMO Trazodone HCl (Trazodone Hcl 50 Mg Tablet) 50 mg PO BEDTIME [facility] Last Admin: 08/09/23 20:37 Dose: 50 mg Documented By: ALLEN Labs 08/10/23 07:41 08/10/23 07:41 Labs: Laboratory Results - last 24 hr 08/09/23 08/09/23 08/10/23 13:21 19:21 07:41 MCV 91.2 89.3 MCH 30.4 MCHC 33.3 RDW 14.4 Plt Count 131 L MPV 10.1 Immature Gran % (Auto) 0.3 Neut % (Auto) 77.6 H Lymph % (Auto) 10.1 L [place] % (Auto) 9.3 Eos % (Auto) 2.4 Baso % (Auto) 0.3 Lymph # (Auto) 0.6 L [place] # (Auto) 0.6 Eos # (Auto) 0.2 Baso # (Auto) 0.0 Abs Immat Gran (auto) 0.02 Absolute Neuts (auto) 4.9 Absolute Nucleated RBC 0.000 Nucleated RBC % (auto) 0.0 ESR 29 H Anion Gap 12 Estim Creat Clear Calc 90.8 Estimated GFR > 60 Random Glucose 113 Lactic Acid 0.9 Calcium 8.6 Magnesium 1.9 Total Bilirubin 0.5 AST 82 H ALT 73 H Alkaline Phosphatase 73 Total Creatine Kinase 398 H C-Reactive Protein 2.41 H Total Protein 6.9 Albumin 3.3 L Random Vancomycin Urine Opiates Screen Not Detected Urine Fentanyl Screen POSITIVE H Ur Barbiturates Screen Not Detected Ur Phencyclidine Scrn Not Detected Ur Amphetamines Screen Not Detected U Benzodiazepines Scrn Not Detected Urine Cocaine Screen POSITIVE H U Marijuana (THC) Screen Not Detected 08/10/23 08/10/23 08/10/23 07:41 07:41 07:41 MCV 90.7 MCH 30.0 31.2 MCHC 33.6 34.4 RDW 14.1 Plt Count MPV Immature Gran % (Auto) Neut % (Auto) Lymph % (Auto) [place] % (Auto) Eos % (Auto) Baso % (Auto) Lymph # (Auto) [place] # (Auto) Eos # (Auto) Baso # (Auto) Abs Immat Gran (auto) Absolute Neuts (auto) Absolute Nucleated RBC Nucleated RBC % (auto) ESR Anion Gap Estim Creat Clear Calc Estimated GFR Random Glucose Lactic Acid Calcium Magnesium Total Bilirubin AST ALT Alkaline Phosphatase Total Creatine Kinase C-Reactive Protein Total Protein Albumin Random Vancomycin Urine Opiates Screen Urine Fentanyl Screen Ur Barbiturates Screen Ur Phencyclidine Scrn Ur Amphetamines Screen U Benzodiazepines Scrn Urine Cocaine Screen U Marijuana (THC) Screen 08/10/23 08/10/23 08/10/23 07:41 07:41 07:41 MCV MCH MCHC RDW 14.1 Plt Count 123 L 127 L MPV 9.0 L 9.5 Immature Gran % (Auto) Neut % (Auto) Lymph % (Auto) [place] % (Auto) Eos % (Auto) Baso % (Auto) Lymph # (Auto) [place] # (Auto) Eos # (Auto) Baso # (Auto) Abs Immat Gran (auto) Absolute Neuts (auto) Absolute Nucleated RBC 0.000 Nucleated RBC % (auto) ESR Anion Gap Estim Creat Clear Calc Estimated GFR Random Glucose Lactic Acid Calcium Magnesium Total Bilirubin AST ALT Alkaline Phosphatase Total Creatine Kinase C-Reactive Protein Total Protein Albumin Random Vancomycin Urine Opiates Screen Urine Fentanyl Screen Ur Barbiturates Screen Ur Phencyclidine Scrn Ur Amphetamines Screen U Benzodiazepines Scrn Urine Cocaine Screen U Marijuana (THC) Screen 08/10/23 08/10/23 07:41 07:41 MCV MCH MCHC RDW Plt Count MPV Immature Gran % (Auto) Neut % (Auto) Lymph % (Auto) [place] % (Auto) Eos % (Auto) Baso % (Auto) Lymph # (Auto) [place] # (Auto) Eos # (Auto) Baso # (Auto) Abs Immat Gran (auto) Absolute Neuts (auto) Absolute Nucleated RBC 0.000 Nucleated RBC % (auto) 0.0 0.0 ESR Anion Gap 11 L Estim Creat Clear Calc 101.2 Estimated GFR > 60 Random Glucose 104 Lactic Acid Calcium 8.9 Magnesium Total Bilirubin AST ALT Alkaline Phosphatase Total Creatine Kinase C-Reactive Protein Total Protein Albumin Random Vancomycin 14.3 L Urine Opiates Screen Urine Fentanyl Screen Ur Barbiturates Screen Ur Phencyclidine Scrn Ur Amphetamines Screen U Benzodiazepines Scrn Urine Cocaine Screen U Marijuana (THC) Screen Assessment and Plan (1) Cellulitis: Status: Acute (2) Abscess of toe: Status: Acute Plan 63-year-old male with a PMH significant for?HTN, rheumatoid arthritis, hepatitis-C, aneurysm of descending thoracic aorta, and bipolar disorder who presents to the ED for evaluation of redness and swelling of left lower extremity with drainage from 2nd toe on left foot. Cellulitis of left lower extremity concerning for abscess and possible osteomyelitis of 2nd digit of left foot associated with dm X-ray of left foot showed comminuted fracture with osteolysis at the head of the proximal phalanx of 2nd toe with possible superimposed osteomyelitis CT of left lower extremity: 1. Diffuse subcutaneous edema about the foot, worst involving the second middle phalanx and there is a small focus of low attenuation not quite measuring simple fluid with foci of gas suggesting phlegmon/developing abscess measuring 1.3 cm. 2. Comminuted fracture with osteolysis of the head of the proximal phalanx second toe, could be sequela of injury and/or superimposed osteomyelitis, an MRI could be considered for further evaluation. esr 29,crp;2.4 foot cellulitis area improving,no fever or leucocytosis blood cultures pending plan: continue vancomycin and Zosyn, started 08/09/2020,pain management,maintenance fluids,vanco trough/pharmacy following. Vascular surgery consult. Cocaine and opioid use disorder Patient given methadone 20 mg ,ativan last night Addiction Medicine-started on metadone 40 mg HTN Continue home meds Hepatitis-C Mild transaminitis(seems elevated chronically)-will repeat lft's Patient asymptomatic Follow-up outpatient for treatment Mood disorder Continue home meds Patient needs to establish outpatient care with psychiatrist Full Code DVT Prophylaxis: Heparin Pt will require a hospitalization of at least two nights for treatment of?left lower extremity cellulitis with concerns for osteomyelitis and abscess of 2nd digit of left foot. Patient required IV antibiotics as well as specialist consultation. Quality Stroke Does the patient have a stroke diagnosis?: No VTE Prior VTE?: No VTE Risk Level:: Medical - moderate - high VTE Device Contraindication: Treatment Not Indicated VTE Drug Contraindication: N/A - Med Ordered
--- NOTE | 2023-08-10 10:01 | MHC.CM.PN ---
CM ATTEMPTED TO MEET WITH PT WHO IS SLEEPING AND DOES NOT WAKE WHEN ADDRESSED BY NAME CM WILL REVISIT
[2023-08-10 10:15] LABS: Alanine Aminotransferase 70 U/L (0-40); Albumin Level 3.2 g/dL (3.5-5.0); Alkaline Phosphatase 63 U/L (39-117); Aspartate Amino Transferase 75 U/L (5-37); Bilirubin Direct 0.4 mg/dL (0.0-0.5); Bilirubin Total 0.7 mg/dL (0.0-1.0); Total Protein 6.7 g/dL (6.5-8.0)
--- NOTE | 2023-08-10 10:30 | MHC.RECOVRN ---
Met with pt in 367 after consult placed to Addiction Medicine for substance use. Pt had presented to the ED left leg swelling and pitting edema in foot. Pt subsequently admitted for cellulitis and toe abscess. Pt laying in bed, eyes closed, restless, opens eyes to voice. Pt reports using 5 bags heroin/fentanyl daily, IN. Difficult to engage in further discussion due to withdrawal. Pt reports methadone 20 mg yesterday was ineffective. Does report hx methadone, unsure of dose. Pt visibly uncomfortable and irritable, reports feeling hot/cold, has rhinorrhea and anxiety. Pt would like to utilize methadone to address withdrawal symptoms. Discussed with Kelsie Boyd APRN. 40 mg methadone administered at 0900, will continue to follow.
--- NOTE | 2023-08-10 12:52 | MHC.RECOVRN ---
Met with pt to follow up after receiving methadone. Pt laying in bed, appears more comfortable, eyes closed, wakes to voice, continues to be difficult to engage in conversation. Pt reports feeling good and was able to sleep after methadone administration. Pt reports $5 cocaine, IN, daily in addition to fentanyl. Pt does not wish to continue MOUD after discharge from hospital. Pt denies questions or concerns for t/w. Discussed with Kelsie Boyd APRN.
[2023-08-10 15:46] VITALS: BP 134/77; PULSE 56; RESP 16; TEMP 36.8; O2SAT 97
[2023-08-10] MEDS: Lactated Ringers 1,000 ML 80 ML IVCONT (16:20)
[2023-08-10] MEDS: QUEtiapine Fumarate 25 MG TABLET PO (20:10)
[2023-08-10] MEDS: traZODone HCL 50 MG TABLET PO (20:10)
[2023-08-10 23:20] VITALS: BP 158/92; PULSE 57; RESP 16; TEMP 37; O2SAT 96
[2023-08-11] MEDS: Heparin Sodium,Porcine 5,000 UNIT/ML VIAL 5000 UNIT SUBCUT (01:54)
[2023-08-11] MEDS: Piperacillin Sodium/Tazobactam 3.375 GM in 0.9 % Sodium Chloride 50 ML IV ×4 (01:54→20:14)
[2023-08-11 07:30] VITALS: BP 172/92; PULSE 51; RESP 18; TEMP 36.4; O2SAT 98
[2023-08-11] MEDS: hydrOXYzine HCL 50 MG TABLET PO ×3 (07:34→20:13)
[2023-08-11] MEDS: methADONE HCl 20 MG/2 ML ORAL.CONC 35 MG PO (07:34)
[2023-08-11] MEDS: Montelukast Sodium 10 MG TABLET PO (07:34)
[2023-08-11] MEDS: amLODIPine Besylate 10 MG TABLET PO (07:34)
[2023-08-11] MEDS: Gabapentin 600 MG TABLET PO ×3 (07:34→20:13)
[2023-08-11] MEDS: Lactated Ringers 1,000 ML 80 ML IVCONT (07:38)
[2023-08-11] MEDS: Fluticasone/Vilanterol 200/25 BLST.W.DEV 1 PUFF INHALE (07:54)
[2023-08-11 07:55] VITALS: PULSE 51; RESP 16; O2SAT 98
[2023-08-11 10:02] LABS: Creatinine Clr Calc Pharmacy 95.1; Estimated Glomerular Filt Rate > 60
--- NOTE | 2023-08-11 10:24 | HE.PHANOTE ---
RE:VANCO Based on SCr of 0.84 with predicted AUC of 496 and trough of 15.6, Continue dose of 1000mg q12h until random level comes back@1999 and will consider adjusting dose then.
[2023-08-11] MEDS: vancomycin HCL 1,000 MG in 0.9 % Sodium Chloride 250 ML 270 MG IV ×2 (10:57→21:37)
--- NOTE | 2023-08-11 11:04 | P.CONGS_ITS ---
History of Present Illness Consult details Consult date: 08/11/23 Reason for consult: wound care Narrative: Very complex 63-year-old gentleman who presented to the emergency room with a history of hypertension rheumatoid arthritis and hep C concerns about his left 2nd toe. He felt like he broke it several months ago but was doing fine. Over the last several days it became red and was of concern to him. Now presents for evaluation regarding his left foot. There is concern osteomyelitis. He now presents to us for vascular evaluation Review of Systems 2 Review of Systems: Yes all other systems are reviewed and are negative Constitutional: Constitutional: Reports no additional constitutional complaints ENT: Reports Normal hearing present Cardiovascular: Cardiovascular: Denies chest pain, Denies chest pain at rest, Denies chest pain with activity and Denies pedal edema Respiratory: Respiratory: Denies cough Gastrointestinal: Gastrointestinal: Denies abdominal pain Musculoskeletal: Musculoskeletal: Denies abnormal gait, Denies muscle cramps and Denies radiating pain into limb Integumentary/Breasts: Skin/Breast: Denies skin ulcer and Denies wounds Neurologic: Reports Normal hearing present and Denies abnormal gait Psychiatric: Psychiatric: Reports no additional psychiatric complaints [facility] Past Medical History Medical History Arthritis Asthma Bipolar disorder Glaucoma Neuropathy Social History Social History (System 08/11/23 @ 07:45 by Jennifer Brand) Household Members: None Housing: Homeless Do you presently have visiting nurse or other home services: No Alcohol intake: current Patient Tobacco Use Status: Current everyday Tobacco user Tobacco use type: Cigarette Cigarette Packs Per Day: 2 Cigarettes Per Day: 40.0 e-Cigarette/Vaping Use: Currently Using Second Hand Smoke Exposure: Yes Substance Use Type: Heroin Meds Allergies Allergy/AdvReac Type Severity Reaction Status Date / Time Penicillins [PENICILLINS] Allergy Unknown UNKNOWN Verified 08/11/23 07:45 risperidone [From RISPERDAL] Allergy Unknown UNKNOWN Verified 08/11/23 07:45 From [facility]ON Allergy Unknown UNKNOWN Uncoded 08/11/23 07:45 Active Medications: Current Medications Acetaminophen (Acetaminophen 325 Mg Tablet) 650 mg PO Q6H PRN PRN Reason: Pain, Mild (Pain Scale 1-3) Albuterol Sulfate (Albuterol Sulfate 90 Mcg 8 Gm Inhaler) 1 puff INHALE DAILY PRN PRN Reason: Shortness Of Breath Or Wheezing Amlodipine Besylate (Amlodipine Besylate 10 Mg Tablet) 10 mg PO DAILY [facility]; Protocol Last Admin: 08/11/23 07:34 Dose: 10 mg Benzonatate (Benzonatate 100 Mg Capsule) 100 mg PO TID PRN PRN Reason: Cough Docusate Sodium (Docusate Sodium 100 Mg Capsule) 100 mg PO DAILY PRN PRN Reason: Constipation Fluticasone/Vilanterol (Fluticasone/Vilanterol 200/25 Blst.W.Dev) 1 puff INHALE RDAILY [facility] Last Admin: 08/11/23 07:54 Dose: 1 puff Gabapentin (Gabapentin 600 Mg Tablet) 600 mg PO TID [facility] Last Admin: 08/11/23 07:34 Dose: 600 mg Heparin Sodium (Porcine) (Heparin Sodium,Porcine 5,000 Unit/Ml Vial) 5,000 unit SUBCUT Q8H [facility] Last Admin: 08/11/23 01:54 Dose: 5,000 unit Hydroxyzine HCl (Hydroxyzine Hcl 50 Mg Tablet) 50 mg PO TID [facility] Last Admin: 08/11/23 07:34 Dose: 50 mg Lactated Ringer's (Lr) 1,000 mls @ 80 mls/hr IVCONT .[id number] [facility] Last Admin: 08/11/23 07:38 Dose: 80 mls/hr Piperacillin Sod/Tazobactam (Sod 3.375 gm/ Sodium Chloride) 50 mls @ 100 mls/hr IV Q6H [facility] Last Infusion: 08/11/23 08:06 Dose: Infused Vancomycin HCl 1,000 mg/ (Sodium Chloride) 270 mls @ 270 mls/hr IV Q12H [facility] Last Admin: 08/11/23 10:57 Dose: 270 mls/hr Melatonin (Melatonin 3 Mg Tablet) 6 mg PO BEDTIME PRN PRN Reason: Insomnia Methadone HCl (Methadone Hcl 20 Mg/2 Ml Oral.Conc) 35 mg PO DAILY [facility] Last Admin: 08/11/23 07:34 Dose: 35 mg Montelukast Sodium (Montelukast Sodium 10 Mg Tablet) 10 mg PO DAILY [facility] Last Admin: 08/11/23 07:34 Dose: 10 mg Ondansetron HCl (Ondansetron Hcl 4 Mg/2 Ml Vial) 4 mg IVPUSH Q8H PRN PRN Reason: Nausea and Vomiting Pharmacy Consult (Consult Rx Vancomycin Dosing) 1 each MISCELLANE DAILY PRN PRN Reason: Consult order Quetiapine Fumarate (Quetiapine Fumarate 25 Mg Tablet) 25 mg PO BEDTIME [facility] Last Admin: 08/10/23 20:10 Dose: 25 mg Sodium Chloride (0.9 % Sodium Chloride Flush 3 Ml Syringe) 3 ml IVFLUSH QSHIFT [facility] Last Admin: 08/11/23 07:34 Dose: Not Given Trazodone HCl (Trazodone Hcl 50 Mg Tablet) 50 mg PO BEDTIME [facility] Last Admin: 08/10/23 20:10 Dose: 50 mg Home Medications Medication Instructions Recorded Confirmed Last Taken Type albuterol sulfate 90 mcg/actuation 1 puff inhalation DAILY PRN 02/07/21 02/07/21 Unknown History aerosol inhaler wheezing amlodipine 10 mg tablet 1 tab PO DAILY 02/07/21 02/07/21 Unknown History cariprazine 6 mg capsule (Vraylar) 6 mg PO DAILY 02/07/21 02/07/21 Unknown History clonazepam 0.5 mg tablet 1 tab PO TID PRN Anxiety 02/07/21 02/07/21 Unknown History fluticasone 500 mcg-salmeterol 50 1 puff inhalation BID 02/07/21 02/07/21 Unknown History mcg/dose blistr powdr for inhalation (Advair Diskus) hydroxyzine HCl 50 mg tablet 50 mg PO TID PRN insomnia 02/07/21 02/07/21 Unknown History lamotrigine 200 mg tablet 200 mg PO QAM 02/07/21 02/07/21 Unknown History quetiapine 25 mg tablet 0.5 tab PO BEDTIME PRN insomnia 02/07/21 02/07/21 Unknown History albuterol sulfate 90 mcg/actuation 1 inh inhalation DAILY PRN 08/09/23 08/09/23 Unknown History aerosol inhaler Shortness Of Breath Or Wheezing amlodipine 10 mg tablet 10 mg PO DAILY 08/09/23 08/09/23 1 Week Ago History ~08/02/23 fluticasone 500 mcg-salmeterol 50 1 ea inhalation BID 08/09/23 08/09/23 1 Week Ago History mcg/dose blistr powdr for ~08/02/23 inhalation (Advair Diskus) gabapentin 600 mg tablet 600 mg PO TID 08/09/23 08/09/23 1 Week Ago History ~08/02/23 hydroxyzine HCl 50 mg tablet 50 mg PO TID 08/09/23 08/09/23 1 Week Ago History ~08/02/23 losartan 25 mg tablet 25 mg PO DAILY 08/09/23 08/09/23 1 Week Ago History ~08/02/23 montelukast 10 mg tablet 10 mg PO DAILY 08/09/23 08/09/23 1 Week Ago History ~08/02/23 quetiapine 25 mg tablet 25 mg PO BEDTIME 08/09/23 08/09/23 1 Week Ago History ~08/02/23 trazodone 50 mg tablet 50 mg PO BEDTIME 08/09/23 08/09/23 1 Week Ago History ~08/02/23 Physical Exam 2 Vital Signs: Vital Signs: Last Vital Signs Temp 97.5 F 08/11/23 07:30 Pulse 51 08/11/23 07:55 Resp 16 08/11/23 07:55 BP 172/92 H 08/11/23 07:30 Pulse Ox 98 08/11/23 07:30 O2 Del Method Room Air 08/11/23 07:30 BMI result Body Mass Index 21.4 Const: General: cooperative, healthy appearing and comfortable O rientation/consciousness: oriented to person, oriented to place and oriented to time HEENT: Head: Yes normal to inspection Neck: Neck: Yes normal visual inspection Carotids: no bruits Chest: Chest palpation & inspection: normal inspection of the chest Resp: Effort & Inspection: normal respiratory effort and able to speak in complete sentences Auscultation: clear to auscultation bilaterally, no crackles, no rales, no rhonchi and no wheezes Cardio: Rate: regular rate Rhythm: regular rhythm Heart sounds: S1 normal heart sound present and S2 normal heart sound present Bruits: no carotid bruits Peripheral pulses: Peripheral pulses 2+ throughout GI: Inspection: Yes normal to inspection Skin: Other: Left 2nd toe red swollen Wounds: no wounds Hair: normal Neuro: General: oriented to person, oriented to place and oriented to time Cranial nerves: Yes CN's II-XII intact bilaterally and Yes Normal hearing present Cognition (Neuro): normal cognition Motor exam (neuro): 5/5 motor strength present throughout Extrem: Other: venous exam: No significant superficial varicosities or spider telangiectasias, minimal edema General: No clubbing, No cyanosis and No edema Psych: Appearance: grossly normal Mental Status: mental status grossly normal Speech and movement: Normal speech and movement present Results Labs 08/10/23 07:41 08/11/23 09:00 Labs: BMP 08/11/23 09:00 Creatinine 0.84 All other labs normal. Imaging Additional studies: CT scan from 08/09 was reviewed concerns of fracture and osteomyelitis the left 2nd toe. Assessment and Plan (1) Osteomyelitis of second toe of left foot: Status: Acute Plan In short patient has a fractured left 2nd toe. Will plan for amputation as it has been fractured in multiple locations. He is in agreement. The patient will require left 2nd toe amputation. Risks benefits complications of the procedure were discussed in detail with the patient. He understood and consented. Procedures Date of Service Date of Service: 08/11/23
--- NOTE | 2023-08-11 12:10 | HO.PM.IMPN ---
Subjective Subjective Date of Service: 08/11/23 Interval History: Diabetic foot infection, opioid use. Review of Systems Foot cellulitis area-erythem and swelling seems imptoving toe chnages seems similar no fever Physical Exam Vital Signs: Vital Signs: Last Vital Signs Temp 97.5 F 08/11/23 07:30 Pulse 51 08/11/23 07:55 Resp 16 08/11/23 07:55 BP 172/92 H 08/11/23 07:30 Pulse Ox 98 08/11/23 07:30 O2 Del Method Room Air 08/11/23 07:30 BMI result Body Mass Index 21.4 Appearance: Alert.? Oriented X3.? not in distress.? cvs: rrr, [id number] , no murmur res: clear to auscultation ,no rhonchii or wheezing abd: no rebound or guarding ,nt, bs present. ext pulses present , no cyanosis. Foot-left foot and leg erythema/swelling improving ,2nd toe seems similar/unchnaged. neuro: axo3 , nonfocal. Objective Data Active Medications Acetaminophen (Acetaminophen 325 Mg Tablet) 650 mg PO Q6H PRN PRN Reason: Pain, Mild (Pain Scale 1-3) Albuterol Sulfate (Albuterol Sulfate 90 Mcg 8 Gm Inhaler) 1 puff INHALE DAILY PRN PRN Reason: Shortness Of Breath Or Wheezing Amlodipine Besylate (Amlodipine Besylate 10 Mg Tablet) 10 mg PO DAILY [facility]; Protocol Last Admin: 08/11/23 07:34 Dose: 10 mg Documented By: JOSEEMA Benzonatate (Benzonatate 100 Mg Capsule) 100 mg PO TID PRN PRN Reason: Cough Docusate Sodium (Docusate Sodium 100 Mg Capsule) 100 mg PO DAILY PRN PRN Reason: Constipation Fluticasone/Vilanterol (Fluticasone/Vilanterol 200/25 Blst.W.Dev) 1 puff INHALE RDAILY [facility] Last Admin: 08/11/23 07:54 Dose: 1 puff Documented By: BONNIE Gabapentin (Gabapentin 600 Mg Tablet) 600 mg PO TID [facility] Last Admin: 08/11/23 07:34 Dose: 600 mg Documented By: RICKY Heparin Sodium (Porcine) (Heparin Sodium,Porcine 5,000 Unit/Ml Vial) 5,000 unit SUBCUT Q8H [facility] Last Admin: 08/11/23 01:54 Dose: 5,000 unit Documented By: ROSLYNRISDebbie Hydroxyzine HCl (Hydroxyzine Hcl 50 Mg Tablet) 50 mg PO TID [facility] Last Admin: 08/11/23 07:34 Dose: 50 mg Documented By: COTEMA Lactated Ringer's (Lr) 1,000 mls @ 80 mls/hr IVCONT .[id number] [facility] Last Admin: 08/11/23 07:38 Dose: 80 mls/hr Documented By: COTEMA Piperacillin Sod/Tazobactam (Sod 3.375 gm/ Sodium Chloride) 50 mls @ 100 mls/hr IV Q6H [facility] Last Infusion: 08/11/23 08:06 Dose: Infused Documented By: COTEMA Vancomycin HCl 1,000 mg/ (Sodium Chloride) 270 mls @ 270 mls/hr IV Q12H [facility] Last Admin: 08/11/23 10:57 Dose: 270 mls/hr Documented By: ABEL Melatonin (Melatonin 3 Mg Tablet) 6 mg PO BEDTIME PRN PRN Reason: Insomnia Methadone HCl (Methadone Hcl 20 Mg/2 Ml Oral.Conc) 35 mg PO DAILY [facility] Last Admin: 08/11/23 07:34 Dose: 35 mg Documented By: COTEMA Montelukast Sodium (Montelukast Sodium 10 Mg Tablet) 10 mg PO DAILY [facility] Last Admin: 08/11/23 07:34 Dose: 10 mg Documented By: COTTATE Ondansetron HCl (Ondansetron Hcl 4 Mg/2 Ml Vial) 4 mg IVPUSH Q8H PRN PRN Reason: Nausea and Vomiting Pharmacy Consult (Consult Rx Vancomycin Dosing) 1 each MISCELLANE DAILY PRN PRN Reason: Consult order Quetiapine Fumarate (Quetiapine Fumarate 25 Mg Tablet) 25 mg PO BEDTIME [facility] Last Admin: 08/10/23 20:10 Dose: 25 mg Documented By: ROSLYNRISDebbie Sodium Chloride (0.9 % Sodium Chloride Flush 3 Ml Syringe) 3 ml IVFLUSH QSHIFT [facility] Last Admin: 08/11/23 07:34 Dose: Not Given Documented By: COTEMA Non-Admin Reason: IV Running Trazodone HCl (Trazodone Hcl 50 Mg Tablet) 50 mg PO BEDTIME [facility] Last Admin: 08/10/23 20:10 Dose: 50 mg Documented By: KAMINI Labs 08/10/23 07:41 08/11/23 09:00 Labs: Laboratory Results - last 24 hr 08/11/23 09:00 Estim Creat Clear Calc 95.1 Estimated GFR > 60 Microbiology Microbiology Results: Microbiology 08/09/23 13:48 Blood Culture - Preliminary Blood - Venous No growth after 24 hours. 08/09/23 13:21 Blood Culture - Preliminary Blood - Venous No growth after 24 hours. Assessment and Plan (1) Osteomyelitis of second toe of left foot: Status: Acute (2) Fracture of toe: Status: Acute (3) Cellulitis: Status: Acute Plan 63-year-old male with a PMH significant for?HTN, rheumatoid arthritis, hepatitis-C, aneurysm of descending thoracic aorta, and bipolar disorder who presents to the ED for evaluation of redness and swelling of left lower extremity with drainage from 2nd toe on left foot. Cellulitis of left lower extremity concerning for abscess and possible osteomyelitis of 2nd digit of left foot associated with dm X-ray of left foot showed comminuted fracture with osteolysis at the head of the proximal phalanx of 2nd toe with possible superimposed osteomyelitis CT of left lower extremity: 1. Diffuse subcutaneous edema about the foot, worst involving the second middle phalanx and there is a small focus of low attenuation not quite measuring simple fluid with foci of gas suggesting phlegmon/developing abscess measuring 1.3 cm. 2. Comminuted fracture with osteolysis of the head of the proximal phalanx second toe, could be sequela of injury and/or superimposed osteomyelitis, an MRI could be considered for further evaluation. esr 29,crp;2.4 foot cellulitis area improving,no fever or leucocytosis blood cultures pending plan: continue vancomycin and Zosyn, started 08/09/2020,pain management,maintenance fluids,vanco trough/pharmacy following. Vascular surgery -possible will need toe amputation. Cocaine and opioid use disorder: Addiction Medicine- on metadone 35 mg HTN Continue home meds Hepatitis-C Mild transaminitis(seems elevated chronically) moniter lft's Patient asymptomatic Follow-up outpatient for treatment Mood disorder Continue home meds Patient needs to establish outpatient care with psychiatrist Full Code DVT Prophylaxis: Heparin ongoing hospitlisation need: treatment of?left lower extremity cellulitis with concerns for osteomyelitis and abscess of 2nd digit of left foot.-need IV antibiotics , toe area is minimum improving as well as vascular consultation-possible need of toe amputation. Quality Stroke Does the patient have a stroke diagnosis?: No VTE Prior VTE?: No VTE Risk Level:: Medical - moderate - high VTE Device Contraindication: Treatment Not Indicated VTE Drug Contraindication: N/A - Med Ordered
--- NOTE | 2023-08-11 15:27 | MHC.RECOVRN ---
T/W met with pt. to f/u on methadone dosing and assess for W/D. Pt laying in bed awake and alert. Easily engages in conversation. Pleasant and cooperative. Pt reports and T/W observed onging restlessness that he reports as increased from his norm . We also re visited his desire to remain on the methadone S/P D/C and ct would like to continue so T/W contacted and updated provider Kelsie Boyd and requested increase in methadone dose due to sx. and D/C the taper due to pt. wanting to be on methadone post D/C. T/W was also able to gather more information on pt's history. He reports that he was using 1/2-1 bundle daily over the last year and that he has OD in the past and his most recent OD was a month ago. Pt also reports that he has had periods of abstinence over the years but could not give a time frame. He has also used methadone in the past with good success per his report but again was unable to give a time frame. Patient is scheduled for toe amp. tomorrow. He is coping with this loss effectively. We will continue to follow patient while here and will connect him with ouptpatient servcies upon D/C.
--- NOTE | 2023-08-11 15:51 | HO.WOUND ---
Wound Consult: Initial 63yr old male admitted to [facility] on?08/09/23 16:16 - See progress notes and H&P for detailed history. Per discussion with direct care nurse - pt set for OR tomorrow for amputation. Defer to surgery for treatment plan. Left 2nd Toe Etiology: nonhealing fracture - Surgery following No topical recommendations needed at this time - defer to surgery.
[2023-08-11 16:00] VITALS: BP 143/63; PULSE 57; RESP 18; TEMP 36.6; O2SAT 98
--- NOTE | 2023-08-11 16:08 | MHC.CM.PN ---
Met with patient to discuss discharge planning. The patient will likely qualify for STR. Amp scheduled for tomorrow. He will have wound care needs. He will require 6 weeks of IV ABX per MD rounds this morning. The Recovery team has started the patient on Methadone. He plans to continue Methadone therapy. He agrees to go to STR at discharge. A referral has been sent to [facility] in [place]. Patient will transport via BLS.
--- NOTE | 2023-08-11 16:11 | P.PNADD_ITS ---
Subjective Subjective Date of Service: 08/11/23 Reason For Visit: Left toe infection concerning for osteomyelitis Interim History: Patient seen in follow up Seen over the weekend by Recovery RNs and methadone 40mg initiated to address opiate withdrawal sx. Initially patient stated he did not wish to continue on methadone beyond this admission, and requested dose taper be started. This morning methadone 35mg administered, when seen by crop nutrition scientist he reported desire to remain on methadone and requested dose be increased. He reported using btwn 5-10 bags of heroin/fentanyl daily. Also reported history of OUD treatment with methadone at both [facility] and most recently [facility]. He was unable to recall any of the doses or any dates. Seen by this communications writer in room 367. He was awake, alert, sitting in bed eating a PB sandwich. Pleasant affect. Confirmed desire to remain on methadone and agreeable to additional small dose today. In terms of withdrawal sx, none noted, however, head noted to be moving back and forth some, slight tremor noted in hands while holding his sandwich and legs were vissibly restless. He had reported restless legs were a chronic issue. Review of Systems Acute medical concerns: Yes pending toe amputation Review of Systems Constitutional: Reports as per HPI Mental Status Exam Mental Status Exam Patient Appearance: Appropriate Level of Consciousness: Awake, Appropriate and Alert Patient Behavior: Appropriate Diagnostics Vital Signs (24Hr): Vital Signs - 24 hr 08/10/23 23:20 08/11/23 07:30 08/11/23 07:55 Temperature 98.6 F 97.5 F Pulse Rate 57 51 51 Respiratory Rate 16 18 16 Blood Pressure 158/92 H 172/92 H Pulse Oximetry 96 98 Oxygen Delivery Method Room Air Room Air 08/11/23 16:00 Temperature 97.8 F Pulse Rate 57 Respiratory Rate 18 Blood Pressure 143/63 H Pulse Oximetry 98 Oxygen Delivery Method Room Air BMI result Body Mass Index 21.4 Labs 08/10/23 07:41 08/11/23 09:00 Labs: Laboratory Results - last 48 hr 08/09/23 08/09/23 08/10/23 13:21 19:21 07:41 WBC 6.2 RBC Hgb Hct MCV MCH MCHC RDW Plt Count MPV Absolute Nucleated RBC Nucleated RBC % (auto) ESR 29 H Sodium Potassium Chloride Carbon Dioxide Anion Gap BUN Creatinine Estim Creat Clear Calc Estimated GFR Random Glucose Calcium Total Bilirubin Direct Bilirubin AST ALT Alkaline Phosphatase C-Reactive Protein 2.41 H Total Protein Albumin Random Vancomycin Urine Opiates Screen Not Detected Urine Fentanyl Screen POSITIVE H Ur Barbiturates Screen Not Detected Ur Phencyclidine Scrn Not Detected Ur Amphetamines Screen Not Detected U Benzodiazepines Scrn Not Detected Urine Cocaine Screen POSITIVE H U Marijuana (THC) Screen Not Detected 08/10/23 08/10/23 08/10/23 07:41 07:41 07:41 WBC 6.4 RBC 3.63 L 3.53 L Hgb 10.9 L 11.0 L Hct 32.4 L MCV MCH MCHC RDW Plt Count MPV Absolute Nucleated RBC Nucleated RBC % (auto) ESR Sodium Potassium Chloride Carbon Dioxide Anion Gap BUN Creatinine Estim Creat Clear Calc Estimated GFR Random Glucose Calcium Total Bilirubin Direct Bilirubin AST ALT Alkaline Phosphatase C-Reactive Protein Total Protein Albumin Random Vancomycin Urine Opiates Screen Urine Fentanyl Screen Ur Barbiturates Screen Ur Phencyclidine Scrn Ur Amphetamines Screen U Benzodiazepines Scrn Urine Cocaine Screen U Marijuana (THC) Screen 08/10/23 08/10/23 08/10/23 07:41 07:41 07:41 WBC RBC Hgb Hct 32.0 L MCV 89.3 90.7 MCH 30.0 31.2 MCHC 33.6 RDW Plt Count MPV Absolute Nucleated RBC Nucleated RBC % (auto) ESR Sodium Potassium Chloride Carbon Dioxide Anion Gap BUN Creatinine Estim Creat Clear Calc Estimated GFR Random Glucose Calcium Total Bilirubin Direct Bilirubin AST ALT Alkaline Phosphatase C-Reactive Protein Total Protein Albumin Random Vancomycin Urine Opiates Screen Urine Fentanyl Screen Ur Barbiturates Screen Ur Phencyclidine Scrn Ur Amphetamines Screen U Benzodiazepines Scrn Urine Cocaine Screen U Marijuana (THC) Screen 08/10/23 08/10/23 08/10/23 07:41 07:41 07:41 WBC RBC Hgb Hct MCV MCH MCHC 34.4 RDW 14.1 14.1 Plt Count 123 L 127 L MPV 9.0 L Absolute Nucleated RBC Nucleated RBC % (auto) ESR Sodium Potassium Chloride Carbon Dioxide Anion Gap BUN Creatinine Estim Creat Clear Calc Estimated GFR Random Glucose Calcium Total Bilirubin Direct Bilirubin AST ALT Alkaline Phosphatase C-Reactive Protein Total Protein Albumin Random Vancomycin Urine Opiates Screen Urine Fentanyl Screen Ur Barbiturates Screen Ur Phencyclidine Scrn Ur Amphetamines Screen U Benzodiazepines Scrn Urine Cocaine Screen U Marijuana (THC) Screen 08/10/23 08/10/23 08/10/23 07:41 07:41 07:41 WBC RBC Hgb Hct MCV MCH MCHC RDW Plt Count MPV 9.5 Absolute Nucleated RBC 0.000 0.000 Nucleated RBC % (auto) 0.0 0.0 ESR Sodium 138 Potassium 3.4 Chloride 103 Carbon Dioxide 27 Anion Gap 11 L BUN 8 L Creatinine 0.79 Estim Creat Clear Calc 101.2 Estimated GFR > 60 Random Glucose 104 Calcium 8.9 Total Bilirubin 0.7 Direct Bilirubin 0.4 AST 75 H ALT 70 H Alkaline Phosphatase 63 C-Reactive Protein Total Protein 6.7 Albumin 3.2 L Random Vancomycin 14.3 L Urine Opiates Screen Urine Fentanyl Screen Ur Barbiturates Screen Ur Phencyclidine Scrn Ur Amphetamines Screen U Benzodiazepines Scrn Urine Cocaine Screen U Marijuana (THC) Screen 08/11/23 09:00 WBC RBC Hgb Hct MCV MCH MCHC RDW Plt Count MPV Absolute Nucleated RBC Nucleated RBC % (auto) ESR Sodium Potassium Chloride Carbon Dioxide Anion Gap BUN Creatinine 0.84 Estim Creat Clear Calc 95.1 Estimated GFR > 60 Random Glucose Calcium Total Bilirubin Direct Bilirubin AST ALT Alkaline Phosphatase C-Reactive Protein Total Protein Albumin Random Vancomycin Urine Opiates Screen Urine Fentanyl Screen Ur Barbiturates Screen Ur Phencyclidine Scrn Ur Amphetamines Screen U Benzodiazepines Scrn Urine Cocaine Screen U Marijuana (THC) Screen Imaging Radiology Impressions: ITS Impressions Foot X-Ray 08/09/23 13:55 IMPRESSION: * Comminuted fracture with osteolysis of the head of the proximal phalanx second toe, could be sequela of injury and/or superimposed osteomyelitis, please correlate with patient's clinical history. Venous Duplex 08/09/23 14:45 IMPRESSION: No DVT demonstrated in the left lower extremity. Nonspecific enlarged left groin lymph nodes. Foot CT 08/09/23 18:25 IMPRESSION: 1. Diffuse subcutaneous edema about the foot, worst involving the second middle phalanx and there is a small focus of low attenuation not quite measuring simple fluid with foci of gas suggesting phlegmon/developing abscess measuring 1.3 cm. 2. Comminuted fracture with osteolysis of the head of the proximal phalanx second toe, could be sequela of injury and/or superimposed osteomyelitis, an MRI could be considered for further evaluation. Medications Medications Current Medications Acetaminophen (Acetaminophen 325 Mg Tablet) 650 mg PO Q6H PRN PRN Reason: Pain, Mild (Pain Scale 1-3) Albuterol Sulfate (Albuterol Sulfate 90 Mcg 8 Gm Inhaler) 1 puff INHALE DAILY PRN PRN Reason: Shortness Of Breath Or Wheezing Amlodipine Besylate (Amlodipine Besylate 10 Mg Tablet) 10 mg PO DAILY [facility]; Protocol Last Admin: 08/11/23 07:34 Dose: 10 mg Benzonatate (Benzonatate 100 Mg Capsule) 100 mg PO TID PRN PRN Reason: Cough Docusate Sodium (Docusate Sodium 100 Mg Capsule) 100 mg PO DAILY PRN PRN Reason: Constipation Fluticasone/Vilanterol (Fluticasone/Vilanterol 200/25 Blst.W.Dev) 1 puff INHALE RDAILY [facility] Last Admin: 08/11/23 07:54 Dose: 1 puff Gabapentin (Gabapentin 600 Mg Tablet) 600 mg PO TID [facility] Last Admin: 08/11/23 14:25 Dose: 600 mg Heparin Sodium (Porcine) (Heparin Sodium,Porcine 5,000 Unit/Ml Vial) 5,000 unit SUBCUT Q8H [facility] Last Admin: 08/11/23 01:54 Dose: 5,000 unit Hydroxyzine HCl (Hydroxyzine Hcl 50 Mg Tablet) 50 mg PO TID [facility] Last Admin: 08/11/23 14:25 Dose: 50 mg Lactated Ringer's (Lr) 1,000 mls @ 80 mls/hr IVCONT .[id number] [facility] Last Admin: 08/11/23 07:38 Dose: 80 mls/hr Piperacillin Sod/Tazobactam (Sod 3.375 gm/ Sodium Chloride) 50 mls @ 100 mls/hr IV Q6H [facility] Last Infusion: 08/11/23 14:24 Dose: Infused Vancomycin HCl 1,000 mg/ (Sodium Chloride) 270 mls @ 270 mls/hr IV Q12H [facility] Last Infusion: 08/11/23 12:17 Dose: Infused Melatonin (Melatonin 3 Mg Tablet) 6 mg PO BEDTIME PRN PRN Reason: Insomnia Methadone HCl (Methadone Hcl 20 Mg/2 Ml Oral.Conc) 35 mg PO DAILY [facility] Last Admin: 08/11/23 07:34 Dose: 35 mg Montelukast Sodium (Montelukast Sodium 10 Mg Tablet) 10 mg PO DAILY [facility] Last Admin: 08/11/23 07:34 Dose: 10 mg Ondansetron HCl (Ondansetron Hcl 4 Mg/2 Ml Vial) 4 mg IVPUSH Q8H PRN PRN Reason: Nausea and Vomiting Pharmacy Consult (Consult Rx Vancomycin Dosing) 1 each MISCELLANE DAILY PRN PRN Reason: Consult order Quetiapine Fumarate (Quetiapine Fumarate 25 Mg Tablet) 25 mg PO BEDTIME [facility] Last Admin: 08/10/23 20:10 Dose: 25 mg Sodium Chloride (0.9 % Sodium Chloride Flush 3 Ml Syringe) 3 ml IVFLUSH QSHIFT [facility] Last Admin: 08/11/23 07:34 Dose: Not Given Trazodone HCl (Trazodone Hcl 50 Mg Tablet) 50 mg PO BEDTIME [facility] Last Admin: 08/10/23 20:10 Dose: 50 mg Allergies Allergies Allergy/AdvReac Type Severity Reaction Status Date / Time Penicillins [PENICILLINS] Allergy Unknown UNKNOWN Verified 08/11/23 07:45 risperidone [From RISPERDAL] Allergy Unknown UNKNOWN Verified 08/11/23 07:45 From GEODON Allergy Unknown UNKNOWN Uncoded 08/11/23 07:45 Assessment & Plan Assessment & Plan (1) Opioid use disorder: Status: Acute Code(s): F11.90 - Opioid use, unspecified, uncomplicated Assessment and Plan: * methadone increased to 45mg daily 08/12 * crop nutrition scientist to coordinate connection to [facility] at discharge * will continue to follow and titratre methadone dose as appropriate Total time managing care of this patient today _25___ minutes.
[2023-08-11] MEDS: methADONE HCl 20 MG/2 ML ORAL.CONC 5 MG PO (16:42)
[2023-08-11 19:46] VITALS: BP 144/89; PULSE 67; RESP 18; TEMP 37.1; O2SAT 98
[2023-08-11] MEDS: cloNIDine HCL 0.1 MG TABLET PO (20:13)
[2023-08-11] MEDS: traZODone HCL 50 MG TABLET PO (20:14)
[2023-08-11] MEDS: QUEtiapine Fumarate 25 MG TABLET PO (20:14)
[2023-08-11 20:55] LABS: Vancomycin Random 12.9 mcg/mL (15-20)
--- NOTE | 2023-08-11 20:59 | HE.PHANOTE ---
RE VANCO TROUGH WAS 12.9 TODAY, CORRELATING TO AN AUC OF 449. Will keep the dose the same. Next level due 08/13 @0800
[2023-08-11] MEDS: Melatonin 3 MG TABLET 6 MG PO (21:42)
[2023-08-11 23:09] VITALS: BP 147/65; PULSE 55; RESP 18; TEMP 36.6; O2SAT 96
[2023-08-12] VITALS (14 sets, daily range): BP systolic 129–170; BP diastolic 68–90; PULSE 54–74; RESP 16–18; TEMP 36.1–37.1; O2SAT 96–100
[2023-08-12] MEDS: Lactated Ringers 1,000 ML 80 ML IVCONT (00:48)
[2023-08-12] MEDS: Piperacillin Sodium/Tazobactam 3.375 GM in 0.9 % Sodium Chloride 50 ML IV ×4 (01:53→22:37)
[2023-08-12 06:57] LABS: Creatinine Clr Calc Pharmacy 97.5; Estimated Glomerular Filt Rate > 60
--- NOTE | 2023-08-12 07:29 | MHC.SHP ---
Pre-Procedural Eval Section A Date of Service: 08/12/23 The patient is an INPATIENT: Yes Changes since office visit: Yes Patient answered all questions The History & Physical has been completed within 30 days and I have reviewed it.: Yes Section B Chief Complaint: Left toe infection concerning for osteomyelitis Allergies: Allergies Allergy/AdvReac Type Severity Reaction Status Date / Time Penicillins [PENICILLINS] Allergy Unknown UNKNOWN Verified 08/12/23 06:58 risperidone [From RISPERDAL] Allergy Unknown UNKNOWN Verified 08/12/23 06:58 From GEODON Allergy Unknown UNKNOWN Uncoded 08/12/23 06:58 Plan I have reviewed the history and physical and performed a pertinent physical examination on my patient. No changes have occurred unless specified. Time Spent With Patient Time: Total time managing care of this patient today ____ minutes.
--- NOTE | 2023-08-12 07:38 | P.CONAN_ITS ---
HPI - Anesthesia Eval Consult details Narrative: 63 yo male patient for Left 2nd toe amputation PMFSH Active Problems All Active Problems (Updated 08/12/23 @ 09:19 by Nelda Steen MD) Positive urine drug screen (Acute) Thrombocytopenia (Acute) Anemia (Acute) Drug abuse (Acute) Opioid use disorder (Acute) Osteomyelitis of second toe of left foot (Acute) Fracture of toe (Acute) Abscess of toe (Acute) Cellulitis (Acute) Past Medical History Medical History (Updated 08/12/23 @ 09:19 by Nelda Steen MD) Bipolar disorder Aneurysm of descending thoracic aorta Hepatitis C Rheumatoid arthritis Active substance abuse HTN (hypertension) Arthritis Glaucoma Neuropathy Asthma Bipolar disorder Family History Family history of problems with anesthesia: No Surgical History Surgical History No pertinent past surgical history History of Problems with Anesthesia: No Social History Social History Household Members: None Housing: Homeless Do you presently have visiting nurse or other home services: No Alcohol intake: current Alcohol intake frequency: does not drink Patient Tobacco Use Status: Current someday Tobacco user Tobacco use type: Cigarette Cigarette Packs Per Day: 2 Cigarettes Per Day: 3 Years Smoked: 2 e-Cigarette/Vaping Use: Currently Using Second Hand Smoke Exposure: Yes Substance Use Type: Heroin Meds Allergies Allergy/AdvReac Type Severity Reaction Status Date / Time Penicillins [PENICILLINS] Allergy Unknown UNKNOWN Verified 08/12/23 06:58 risperidone [From RISPERDAL] Allergy Unknown UNKNOWN Verified 08/12/23 06:58 From GEODON Allergy Unknown UNKNOWN Uncoded 08/12/23 06:58 Active Medications: Current Medications Acetaminophen (Acetaminophen 325 Mg Tablet) 650 mg PO Q6H PRN PRN Reason: Pain, Mild (Pain Scale 1-3) Albuterol Sulfate (Albuterol Sulfate 90 Mcg 8 Gm Inhaler) 1 puff INHALE DAILY PRN PRN Reason: Shortness Of Breath Or Wheezing Amlodipine Besylate (Amlodipine Besylate 10 Mg Tablet) 10 mg PO DAILY [facility]; Protocol Last Admin: 08/11/23 07:34 Dose: 10 mg Benzonatate (Benzonatate 100 Mg Capsule) 100 mg PO TID PRN PRN Reason: Cough Clonidine HCl (Clonidine Hcl 0.1 Mg Tablet) 0.1 mg PO BID [facility]; Protocol Last Admin: 08/11/23 20:13 Dose: 0.1 mg Docusate Sodium (Docusate Sodium 100 Mg Capsule) 100 mg PO DAILY PRN PRN Reason: Constipation Fluticasone/Vilanterol (Fluticasone/Vilanterol 200/25 Blst.W.Dev) 1 puff INHALE RDAILY [facility] Last Admin: 08/11/23 07:54 Dose: 1 puff Gabapentin (Gabapentin 600 Mg Tablet) 600 mg PO TID [facility] Last Admin: 08/11/23 20:13 Dose: 600 mg Heparin Sodium (Porcine) (Heparin Sodium,Porcine 5,000 Unit/Ml Vial) 5,000 unit SUBCUT Q8H [facility] Last Admin: 08/11/23 01:54 Dose: 5,000 unit Hydroxyzine HCl (Hydroxyzine Hcl 50 Mg Tablet) 50 mg PO TID [facility] Last Admin: 08/11/23 20:13 Dose: 50 mg Piperacillin Sod/Tazobactam (Sod 3.375 gm/ Sodium Chloride) 50 mls @ 100 mls/hr IV Q6H [facility] Last Infusion: 08/12/23 02:25 Dose: Infused Vancomycin HCl 1,000 mg/ (Sodium Chloride) 270 mls @ 270 mls/hr IV Q12H [facility] Last Infusion: 08/11/23 22:39 Dose: Infused Melatonin (Melatonin 3 Mg Tablet) 6 mg PO BEDTIME PRN PRN Reason: Insomnia Last Admin: 08/11/23 21:42 Dose: 6 mg Methadone HCl (Methadone Hcl 20 Mg/2 Ml Oral.Conc) 45 mg PO DAILY [facility] Montelukast Sodium (Montelukast Sodium 10 Mg Tablet) 10 mg PO DAILY [facility] Last Admin: 08/11/23 07:34 Dose: 10 mg Ondansetron HCl (Ondansetron Hcl 4 Mg/2 Ml Vial) 4 mg IVPUSH Q8H PRN PRN Reason: Nausea and Vomiting Pharmacy Consult (Consult Rx Vancomycin Dosing) 1 each MISCELLANE DAILY PRN PRN Reason: Consult order Quetiapine Fumarate (Quetiapine Fumarate 25 Mg Tablet) 25 mg PO BEDTIME [facility] Last Admin: 08/11/23 20:14 Dose: 25 mg Sodium Chloride (0.9 % Sodium Chloride Flush 3 Ml Syringe) 3 ml IVFLUSH QSHIFT [facility] Last Admin: 08/11/23 20:45 Dose: Not Given Trazodone HCl (Trazodone Hcl 50 Mg Tablet) 50 mg PO BEDTIME [facility] Last Admin: 08/11/23 20:14 Dose: 50 mg Home Medications Medication Instructions Recorded Confirmed Last Taken Type albuterol sulfate 90 mcg/actuation 1 inh inhalation DAILY PRN 08/09/23 08/09/23 Unknown History aerosol inhaler Shortness Of Breath Or Wheezing amlodipine 10 mg tablet 10 mg PO DAILY 08/09/23 08/09/23 1 Week Ago History ~08/02/23 fluticasone 500 mcg-salmeterol 50 1 ea inhalation BID 08/09/23 08/09/23 1 Week Ago History mcg/dose blistr powdr for ~08/02/23 inhalation (Advair Diskus) gabapentin 600 mg tablet 600 mg PO TID 08/09/23 08/09/23 1 Week Ago History ~08/02/23 hydroxyzine HCl 50 mg tablet 50 mg PO TID 08/09/23 08/09/23 1 Week Ago History ~08/02/23 losartan 25 mg tablet 25 mg PO DAILY 08/09/23 08/09/23 1 Week Ago History ~08/02/23 montelukast 10 mg tablet 10 mg PO DAILY 08/09/23 08/09/23 1 Week Ago History ~08/02/23 quetiapine 25 mg tablet 25 mg PO BEDTIME 08/09/23 08/09/23 1 Week Ago History ~08/02/23 trazodone 50 mg tablet 50 mg PO BEDTIME 08/09/23 08/09/23 1 Week Ago History ~08/02/23 Exam Height,Weight and Vital Signs: Height 6 ft 2 in Weight 75.75 kg Last Vital Signs Temp 98.6 F 08/12/23 06:54 Pulse 54 08/12/23 06:54 Resp 16 08/12/23 06:54 BP 149/89 H 08/12/23 06:54 Pulse Ox 98 08/12/23 06:54 O2 Del Method Room Air 08/12/23 06:54 Pertinent Lab Results Pertinent Lab Results: Laboratory Tests 08/09/23 08/09/23 08/10/23 13:21 19:21 07:41 WBC 6.4 6.2 RBC 3.39 L Hgb 10.3 L Hct 30.9 L MCV 91.2 MCH 30.4 MCHC 33.3 RDW 14.4 Plt Count 131 L MPV 10.1 Immature Gran % (Auto) 0.3 Neut % (Auto) 77.6 H Lymph % (Auto) 10.1 L Towns % (Auto) 9.3 Eos % (Auto) 2.4 Baso % (Auto) 0.3 Lymph # (Auto) 0.6 L Towns # (Auto) 0.6 Eos # (Auto) 0.2 Baso # (Auto) 0.0 Abs Immat Gran (auto) 0.02 Absolute Neuts (auto) 4.9 Absolute Nucleated RBC 0.000 Nucleated RBC % (auto) 0.0 ESR 29 H Hold Purple Top Sodium 137 Potassium 3.8 Chloride 102 Carbon Dioxide 27 Anion Gap 12 BUN 15 Creatinine 0.88 Estim Creat Clear Calc 90.8 Estimated GFR > 60 Random Glucose 113 Lactic Acid 0.9 Calcium 8.6 Magnesium 1.9 Total Bilirubin 0.5 Direct Bilirubin AST 82 H ALT 73 H Alkaline Phosphatase 73 Total Creatine Kinase 398 H C-Reactive Protein 2.41 H Total Protein 6.9 Albumin 3.3 L Random Vancomycin Urine Opiates Screen Not Detected Urine Fentanyl Screen POSITIVE H Ur Barbiturates Screen Not Detected Ur Phencyclidine Scrn Not Detected Ur Amphetamines Screen Not Detected U Benzodiazepines Scrn Not Detected Urine Cocaine Screen POSITIVE H U Marijuana (THC) Screen Not Detected 08/10/23 08/10/23 08/10/23 07:41 07:41 07:41 WBC 6.4 RBC 3.63 L 3.53 L Hgb 10.9 L 11.0 L Hct 32.4 L MCV MCH MCHC RDW Plt Count MPV Immature Gran % (Auto) Neut % (Auto) Lymph % (Auto) Towns % (Auto) Eos % (Auto) Baso % (Auto) Lymph # (Auto) Towns # (Auto) Eos # (Auto) Baso # (Auto) Abs Immat Gran (auto) Absolute Neuts (auto) Absolute Nucleated RBC Nucleated RBC % (auto) ESR Hold Purple Top Sodium Potassium Chloride Carbon Dioxide Anion Gap BUN Creatinine Estim Creat Clear Calc Estimated GFR Random Glucose Lactic Acid Calcium Magnesium Total Bilirubin Direct Bilirubin AST ALT Alkaline Phosphatase Total Creatine Kinase C-Reactive Protein Total Protein Albumin Random Vancomycin Urine Opiates Screen Urine Fentanyl Screen Ur Barbiturates Screen Ur Phencyclidine Scrn Ur Amphetamines Screen U Benzodiazepines Scrn Urine Cocaine Screen U Marijuana (THC) Screen 08/10/23 08/10/23 08/10/23 07:41 07:41 07:41 WBC RBC Hgb Hct 32.0 L MCV 89.3 90.7 MCH 30.0 31.2 MCHC 33.6 RDW Plt Count MPV Immature Gran % (Auto) Neut % (Auto) Lymph % (Auto) Towns % (Auto) Eos % (Auto) Baso % (Auto) Lymph # (Auto) Towns # (Auto) Eos # (Auto) Baso # (Auto) Abs Immat Gran (auto) Absolute Neuts (auto) Absolute Nucleated RBC Nucleated RBC % (auto) ESR Hold Purple Top Sodium Potassium Chloride Carbon Dioxide Anion Gap BUN Creatinine Estim Creat Clear Calc Estimated GFR Random Glucose Lactic Acid Calcium Magnesium Total Bilirubin Direct Bilirubin AST ALT Alkaline Phosphatase Total Creatine Kinase C-Reactive Protein Total Protein Albumin Random Vancomycin Urine Opiates Screen Urine Fentanyl Screen Ur Barbiturates Screen Ur Phencyclidine Scrn Ur Amphetamines Screen U Benzodiazepines Scrn Urine Cocaine Screen U Marijuana (THC) Screen 08/10/23 08/10/23 08/10/23 07:41 07:41 07:41 WBC RBC Hgb Hct MCV MCH MCHC 34.4 RDW 14.1 14.1 Plt Count 123 L 127 L MPV 9.0 L Immature Gran % (Auto) Neut % (Auto) Lymph % (Auto) Towns % (Auto) Eos % (Auto) Baso % (Auto) Lymph # (Auto) Towns # (Auto) Eos # (Auto) Baso # (Auto) Abs Immat Gran (auto) Absolute Neuts (auto) Absolute Nucleated RBC Nucleated RBC % (auto) ESR Hold Purple Top Sodium Potassium Chloride Carbon Dioxide Anion Gap BUN Creatinine Estim Creat Clear Calc Estimated GFR Random Glucose Lactic Acid Calcium Magnesium Total Bilirubin Direct Bilirubin AST ALT Alkaline Phosphatase Total Creatine Kinase C-Reactive Protein Total Protein Albumin Random Vancomycin Urine Opiates Screen Urine Fentanyl Screen Ur Barbiturates Screen Ur Phencyclidine Scrn Ur Amphetamines Screen U Benzodiazepines Scrn Urine Cocaine Screen U Marijuana (THC) Screen 08/10/23 08/10/23 08/10/23 07:41 07:41 07:41 WBC RBC Hgb Hct MCV MCH MCHC RDW Plt Count MPV 9.5 Immature Gran % (Auto) Neut % (Auto) Lymph % (Auto) Towns % (Auto) Eos % (Auto) Baso % (Auto) Lymph # (Auto) Towns # (Auto) Eos # (Auto) Baso # (Auto) Abs Immat Gran (auto) Absolute Neuts (auto) Absolute Nucleated RBC 0.000 0.000 Nucleated RBC % (auto) 0.0 0.0 ESR Hold Purple Top Sodium 138 Potassium 3.4 Chloride 103 Carbon Dioxide 27 Anion Gap 11 L BUN 8 L Creatinine 0.79 Estim Creat Clear Calc 101.2 Estimated GFR > 60 Random Glucose 104 Lactic Acid Calcium 8.9 Magnesium Total Bilirubin 0.7 Direct Bilirubin 0.4 AST 75 H ALT 70 H Alkaline Phosphatase 63 Total Creatine Kinase C-Reactive Protein Total Protein 6.7 Albumin 3.2 L Random Vancomycin 14.3 L Urine Opiates Screen Urine Fentanyl Screen Ur Barbiturates Screen Ur Phencyclidine Scrn Ur Amphetamines Screen U Benzodiazepines Scrn Urine Cocaine Screen U Marijuana (THC) Screen 08/11/23 08/11/23 08/12/23 09:00 20:06 05:57 WBC RBC Hgb Hct MCV MCH MCHC RDW Plt Count MPV Immature Gran % (Auto) Neut % (Auto) Lymph % (Auto) Towns % (Auto) Eos % (Auto) Baso % (Auto) Lymph # (Auto) Towns # (Auto) Eos # (Auto) Baso # (Auto) Abs Immat Gran (auto) Absolute Neuts (auto) Absolute Nucleated RBC Nucleated RBC % (auto) ESR Hold Purple Top SEE NOTE Sodium Potassium Chloride Carbon Dioxide Anion Gap BUN Creatinine 0.84 0.82 Estim Creat Clear Calc 95.1 97.5 Estimated GFR > 60 > 60 Random Glucose Lactic Acid Calcium Magnesium Total Bilirubin Direct Bilirubin AST ALT Alkaline Phosphatase Total Creatine Kinase C-Reactive Protein Total Protein Albumin Random Vancomycin 12.9 L Urine Opiates Screen Urine Fentanyl Screen Ur Barbiturates Screen Ur Phencyclidine Scrn Ur Amphetamines Screen U Benzodiazepines Scrn Urine Cocaine Screen U Marijuana (THC) Screen Airway Mallampati Class: II TM Dist: >3cm Neck ROM: Full Loose/Missing/Broken Teeth: Yes (Edentulous. Dentures in room) Heart: RRR. Diminished Lungs: CTAB Assessment and Plan Assessment Anesthesia Assessment: Anesthesia Plan Discussed and Chart Reviewed Final Anesthetic Review Family History of Problems with Anesthesia: No History of Problems with Anesthesia: No NPO: Yes ASA Class: III Final Preanesthetic Review: No Changes in Pt Med Stat, Meds/Allgs Chart Reviewed, Consent Obtained/Reviewed and Anes Risks/Benef Reviewed Patient Risk: Intermediate Procedure Risk: Low Assessment/Block/Sedation in SS: Assess/Block/Sedation-SS Anesthetic Plan Anesthetic Plan: GA Disposition: Standard PACU
[2023-08-12 08:12] LABS: Anion Gap 9 (12-20)
[2023-08-12 08:15] LABS: Blood Urea Nitrogen 12 mg/dL (9-16); Calcium 8.6 mg/dL (8.4-10.2); Carbon Dioxide 27 mmol/L (22-29); Chloride 106 mmol/L (96-108); Glucose Random 109 mg/dL (60-115); Potassium 3.8 mmol/L (3.3-5.1); Sodium 138 mmol/L (135-145)
[2023-08-12] MEDS: Acetaminophen 1,000 MG/100 ML PIGGYBACK 400 MG IV (09:13)
[2023-08-12] MEDS: fentaNYL citrate/PF 100 MCG/2 ML VIAL 25 MCG IVPUSH ×2 (09:14→09:26)
[2023-08-12] MEDS: Morphine Sulfate 2 MG/ML CARTRIDGE IVPUSH ×2 (10:36→14:38)
[2023-08-12] MEDS: vancomycin HCL 1,000 MG in 0.9 % Sodium Chloride 250 ML 270 MG IV ×2 (11:12→21:20)
--- NOTE | 2023-08-12 11:34 | HO.PM.IMPN ---
Subjective Subjective Date of Service: 08/12/23 Interval History: ampuation done this morning, c/o pain, morphine ordered Physical Exam Vital Signs: Vital Signs: Last Vital Signs Temp 97.9 F 08/12/23 09:44 Pulse 62 08/12/23 09:44 Resp 18 08/12/23 09:44 BP 167/84 H 08/12/23 09:44 Pulse Ox 96 08/12/23 09:44 O2 Del Method Room Air 08/12/23 09:44 O2 Flow Rate 4 08/12/23 09:11 BMI result Body Mass Index 21.4 Const: Other: General: AO X 3, no acute distress Resp: CTA bilateral CVS: S1,S2,RRR GI: +BS, NT, no distention Skin: amputation site dressing intact Neuro: motor grossly intact Psych: appropriate affect Objective Data Active Medications Acetaminophen (Acetaminophen 325 Mg Tablet) 650 mg PO Q6H PRN PRN Reason: Pain, Mild (Pain Scale 1-3) Albuterol Sulfate (Albuterol Sulfate 90 Mcg 8 Gm Inhaler) 1 puff INHALE DAILY PRN PRN Reason: Shortness Of Breath Or Wheezing Amlodipine Besylate (Amlodipine Besylate 10 Mg Tablet) 10 mg PO DAILY [facility]; Protocol Last Admin: 08/11/23 07:34 Dose: 10 mg Documented By: COTEMA Benzonatate (Benzonatate 100 Mg Capsule) 100 mg PO TID PRN PRN Reason: Cough Clonidine HCl (Clonidine Hcl 0.1 Mg Tablet) 0.1 mg PO BID [facility]; Protocol Last Admin: 08/11/23 20:13 Dose: 0.1 mg Documented By: FRANCES Docusate Sodium (Docusate Sodium 100 Mg Capsule) 100 mg PO DAILY PRN PRN Reason: Constipation Fentanyl (Fentanyl Citrate/Pf 100 Mcg/2 Ml Vial) 25 mcg IVPUSH Q5M PRN; Protocol PRN Reason: Pain, Moderate(Pain Scale 4-6) Last Admin: 08/12/23 09:26 Dose: 25 mcg Documented By: KENNEDY Fluticasone/Vilanterol (Fluticasone/Vilanterol 200/25 Blst.W.Dev) 1 puff INHALE RDAILY [facility] Last Admin: 08/12/23 08:05 Dose: Not Given Documented By: CATHERINE Non-Admin Reason: Not In Room Gabapentin (Gabapentin 600 Mg Tablet) 600 mg PO TID [facility] Last Admin: 08/11/23 20:13 Dose: 600 mg Documented By: FARNCES Heparin Sodium (Porcine) (Heparin Sodium,Porcine 5,000 Unit/Ml Vial) 5,000 unit SUBCUT Q8H [facility] Last Admin: 08/11/23 01:54 Dose: 5,000 unit Documented By: ROSLYNRISDebbie Hydroxyzine HCl (Hydroxyzine Hcl 50 Mg Tablet) 50 mg PO TID [facility] Last Admin: 08/11/23 20:13 Dose: 50 mg Documented By: FRANCES Vancomycin HCl 1,000 mg/ (Sodium Chloride) 270 mls @ 270 mls/hr IV Q12H [facility] Last Admin: 08/12/23 11:12 Dose: 270 mls/hr Documented By: SHERRY Lactated Ringer's (Lr) 1,000 mls @ 100 mls/hr IVCONT .Q10H [facility] Piperacillin Sod/Tazobactam (Sod 3.375 gm/ Sodium Chloride) 50 mls @ 100 mls/hr IV Q6H [facility] Last Infusion: 08/12/23 11:23 Dose: Infused Documented By: SHERRY Melatonin (Melatonin 3 Mg Tablet) 6 mg PO BEDTIME PRN PRN Reason: Insomnia Last Admin: 08/11/23 21:42 Dose: 6 mg Documented By: FRANCES Methadone HCl (Methadone Hcl 20 Mg/2 Ml Oral.Conc) 45 mg PO DAILY [facility] Montelukast Sodium (Montelukast Sodium 10 Mg Tablet) 10 mg PO DAILY [facility] Last Admin: 08/11/23 07:34 Dose: 10 mg Documented By: COTEMA Morphine Sulfate (Morphine Sulfate 2 Mg/Ml Cartridge) 2 mg IVPUSH Q4H PRN; Protocol PRN Reason: Pain, Severe (Pain Scale 7-10) Last Admin: 08/12/23 10:36 Dose: 2 mg Documented By: SHERRY Ondansetron HCl (Ondansetron Hcl 4 Mg/2 Ml Vial) 4 mg IVPUSH Q8H PRN PRN Reason: Nausea and Vomiting Pharmacy Consult (Consult Rx Vancomycin Dosing) 1 each MISCELLANE DAILY PRN PRN Reason: Consult order Quetiapine Fumarate (Quetiapine Fumarate 25 Mg Tablet) 25 mg PO BEDTIME [facility] Last Admin: 08/11/23 20:14 Dose: 25 mg Documented By: FRANCES Sodium Chloride (0.9 % Sodium Chloride Flush 3 Ml Syringe) 3 ml IVFLUSH QSHIFT [facility] Last Admin: 08/12/23 09:52 Dose: Not Given Documented By: LUPE Non-Admin Reason: Off Unit: Surgery Trazodone HCl (Trazodone Hcl 50 Mg Tablet) 50 mg PO BEDTIME [facility] Last Admin: 08/11/23 20:14 Dose: 50 mg Documented By: FRANCES Labs 08/10/23 07:41 08/12/23 05:57 Labs: Laboratory Results - last 24 hr 08/11/23 08/12/23 20:06 05:57 Hold Purple Top SEE NOTE Anion Gap 9 L Estim Creat Clear Calc 97.5 Estimated GFR > 60 Random Glucose 109 Calcium 8.6 Random Vancomycin 12.9 L Microbiology Microbiology Results: Microbiology 08/09/23 13:48 Blood Culture - Preliminary Blood - Venous No growth after 48 hours. 08/09/23 13:21 Blood Culture - Preliminary Blood - Venous No growth after 48 hours. Assessment and Plan (1) Osteomyelitis of second toe of left foot: Status: Acute (2) Fracture of toe: Status: Acute (3) Cellulitis: Status: Acute Plan 63-year-old male with a PMH significant for?HTN, rheumatoid arthritis, hepatitis-C, aneurysm of descending thoracic aorta, and bipolar disorder who presents to the ED for evaluation of redness and swelling of left lower extremity with drainage from 2nd toe on left foot. Cellulitis of left lower extremity concerning for abscess and possible osteomyelitis of 2nd digit of left foot associated with dm X-ray of left foot showed comminuted fracture with osteolysis at the head of the proximal phalanx of 2nd toe with possible superimposed osteomyelitis CT of left lower extremity: 1. Diffuse subcutaneous edema about the foot, worst involving the second middle phalanx and there is a small focus of low attenuation not quite measuring simple fluid with foci of gas suggesting phlegmon/developing abscess measuring 1.3 cm. 2. Comminuted fracture with osteolysis of the head of the proximal phalanx second toe, could be sequela of injury and/or superimposed osteomyelitis, an MRI could be considered for further evaluation. esr 29,crp;2.4 --left foot 2nd digit ampuated today 08/12 plan: continue vancomycin and Zosyn, started 08/09/2020,pain management,vanco trough/pharmacy following. Will discuss with ID and vascular surgery need to continue IV Abx, for now continue Zosyn and Vanco Cocaine and opioid use disorder: Addiction Medicine- on metadone 45 mg HTN Continue home meds Hepatitis-C Mild transaminitis(seems elevated chronically) moniter lft's Patient asymptomatic Follow-up outpatient for treatment Mood disorder Continue home meds Patient needs to establish outpatient care with psychiatrist Full Code DVT Prophylaxis: Heparin ongoing hospitlisation need: treatment of?left lower extremity cellulitis with concerns for osteomyelitis and abscess of 2nd digit of left foot.-need IV antibiotics , toe area is minimum improving as well as vascular consultation-possible need of toe amputation. Quality Stroke Does the patient have a stroke diagnosis?: No VTE Prior VTE?: No VTE Risk Level:: Medical - moderate - high VTE Device Contraindication: Treatment Not Indicated VTE Drug Contraindication: N/A - Med Ordered
--- NOTE | 2023-08-12 12:22 | W.PM.OPN ---
Operative Note Operative Note Date of Service: 08/12/23 Narrative: Operative note by [facility] Preoperative diagnosis: Nonhealing left 2nd toe with osteomyelitis Postoperative diagnosis: Same Procedure: Left 2nd toe amputation Surgeon:Aureliano Shah M.D. Civil Estimator: Joel Anesthesia: General Specimens: 1 Drains: None Estimated blood loss: Minimal Indications: 63-year-old gentleman with prior history of a fracture. Reports that it was progressively getting worse. He was discovered to have osteomyelitis and open for ulcerations. He now presents for left 2nd toe amp you The patient has signed the informed consent after reviewing risks, complications, benefits, and alternatives previously discussed with the patient. The patient was given the opportunity to ask any additional questions or voice any concerns. All questions were answered to the patient's satisfaction. Procedure in detail: Patient was brought to the operating room prior to which a time-out was called for patient identification and site verification fishmouth incision was carried out over the left 2nd toe. This was taken down through the skin subcu down to the metatarsal head. Toe was removed in its entirety. Hemostasis was obtained with electrocautery. Deep layer was reapproximated using 2 0 Polysorb superficial layer with 2-0 nylon in a mattress fashion and finally skin clips. Patient tolerated the procedure well and returned to recovery with stable vitals. Sponge needle instrument counts were correct x2. This note is constructed using voice recognition software. While every effort has been made to ensure accuracy, maintenance service technician errors may have been included. Thank you for allowing me to participate in the care of your patient. Yours sincerely, Aureliano Shah MD, FACS, R.P.V.I.
[2023-08-12] MEDS: amLODIPine Besylate 10 MG TABLET PO (12:37)
[2023-08-12] MEDS: methADONE HCl 20 MG/2 ML ORAL.CONC 45 MG PO (12:37)
[2023-08-12] MEDS: Montelukast Sodium 10 MG TABLET PO (12:38)
[2023-08-12] MEDS: Lactated Ringers 1,000 ML 100 ML IVCONT ×2 (12:38→20:03)
[2023-08-12] MEDS: cloNIDine HCL 0.1 MG TABLET PO ×2 (12:38→20:02)
[2023-08-12] MEDS: Acetaminophen 325 MG TABLET 650 MG PO (13:32)
--- NOTE | 2023-08-12 13:35 | MHC.CM.PN ---
Per rounds, Pt is not medically cleared for D/C today; IV ABX. CM to follow.
[2023-08-12] MEDS: Gabapentin 600 MG TABLET PO ×2 (14:38→20:02)
[2023-08-12] MEDS: hydrOXYzine HCL 50 MG TABLET PO ×2 (14:38→20:02)
--- NOTE | 2023-08-12 15:39 | MHC.RECOVRN ---
Met with pt to follow up regarding methadone dose and provide support. Pt sitting in bed, awake, alert, easily engages in conversation, appears comfortable. Reports surgery today went well. Denies current withdrawal symptoms, feels current dose of 45 mg methadone is adequate at this time. Pt would like to be connected to [facility] upon discharge. Pt denies questions or concerns for t/w. Discussed with Kelsie Boyd APRN.
[2023-08-12] MEDS: traZODone HCL 50 MG TABLET PO (20:02)
[2023-08-12] MEDS: QUEtiapine Fumarate 25 MG TABLET PO (20:02)
[2023-08-13] VITALS: BP 156/87; PULSE 54; RESP 16; TEMP 36.4; O2SAT 98
[2023-08-13] MEDS: Morphine Sulfate 2 MG/ML CARTRIDGE IVPUSH (02:25)
[2023-08-13 03:11] VITALS: BP 142/76; PULSE 52; RESP 16; TEMP 37; O2SAT 97
[2023-08-13] MEDS: Piperacillin Sodium/Tazobactam 3.375 GM in 0.9 % Sodium Chloride 50 ML IV (04:45)
[2023-08-13] MEDS: Lactated Ringers 1,000 ML 100 ML IVCONT (06:37)
[2023-08-13 06:46] VITALS: BP 137/80; PULSE 52; RESP 16; TEMP 35.9; O2SAT 96
[2023-08-13 07:00] LABS: Vancomycin Trough 15.3 mcg/mL (10.0-20.0)
[2023-08-13 07:05] LABS: Creatinine Clr Calc Pharmacy 98.7; Estimated Glomerular Filt Rate > 60
--- NOTE | 2023-08-13 07:46 | HE.PHANOTE ---
RE:JULIA whitney anatoliy came back this morning at 15.3. however level was pulled two hours early so true trough could be lower. will continue with current dose. next pull will be tomorrow 08/14 @0800
[2023-08-13] MEDS: Fluticasone/Vilanterol 200/25 BLST.W.DEV 1 PUFF INHALE (08:15)
[2023-08-13 08:16] VITALS: PULSE 52; RESP 16
[2023-08-13] MEDS: methADONE HCl 20 MG/2 ML ORAL.CONC 45 MG PO (08:50)
[2023-08-13] MEDS: Gabapentin 600 MG TABLET PO (08:52)
[2023-08-13] MEDS: cloNIDine HCL 0.1 MG TABLET PO (08:52)
[2023-08-13] MEDS: hydrOXYzine HCL 50 MG TABLET PO (08:52)
[2023-08-13] MEDS: amLODIPine Besylate 10 MG TABLET PO (08:53)
[2023-08-13] MEDS: Montelukast Sodium 10 MG TABLET PO (08:53)
[2023-08-13] MEDS: 0.9 % Sodium Chloride Flush 3 ML SYRINGE IVFLUSH (08:53)
--- NOTE | 2023-08-13 09:28 | HO.POSTANES ---
Post Anesthesia Evaluation Post Anesthesia Evaluation Date of Service: 08/12/23 Vital Signs: Vital Signs Temp Pulse Resp BP Pulse Ox O2 Del Method 08/13/23 08:16 52 16 08/13/23 06:46 96.7 F L 52 16 137/80 96 Room Air 08/13/23 03:11 98.6 F 52 16 142/76 H 97 Room Air 08/13/23 00:00 97.6 F 54 16 156/87 H 98 Room Air Anesthesia: General LMA Mental Status: Awake Pain Control: Satisfactory Nausea/Vomiting: None Hydration: Adequate Anesthesia-Related Issues: No Anes. Related Issues
--- NOTE | 2023-08-13 10:21 | HO.VASCPN ---
Subjective Subjective Date of Service: 08/13/23 Patient reports: no new complaints and feels better Interval history: Patient seen and examined. No significant events. Underwent toe amp on yesterday. Denies any significant pain. Now for dressing change. Physical Exam Vital Signs: Vital Signs: Last Vital Signs Temp 96.7 F L 08/13/23 06:46 Pulse 52 08/13/23 08:16 Resp 16 08/13/23 08:16 BP 137/80 08/13/23 06:46 Pulse Ox 96 08/13/23 06:46 O2 Del Method Room Air 08/13/23 09:10 O2 Flow Rate 4 08/12/23 09:11 BMI result Body Mass Index 21.4 Const: General: cooperative, healthy appearing and no acute distress Orientation/consciousness: oriented to person, oriented to place and oriented to time HEENT: Head: Yes normal to inspection Neck: Carotids: no bruits Chest: Chest palpation & inspection: normal inspection of the chest Resp: Effort & Inspection: normal respiratory effort and able to speak in complete sentences Auscultation: clear to auscultation bilaterally Cardio: Rate: regular rate Heart sounds: S1 normal heart sound present and S2 normal heart sound present GI: Inspection: Yes normal to inspection Skin: Other: Left foot toe amputation site appears clean General skin exam: no rashes or lesions noted Wounds: no wounds Neuro: General: oriented to person, oriented to place, oriented to time and CN's II-XI intact bilaterally Extrem: General: Yes normal to inspection, Yes full ROM and Yes no clubbing, cyanosis or edema Psych: Appearance: grossly normal and well kempt Speech and movement: Normal speech and movement present Affect: normal affect Progress Note: A&P Assessment and plan (1) Osteomyelitis of second toe of left foot: Status: Acute Assessment and Plan: In short patient is doing well status post left 2nd toe amp. Stable for discharge. Would recommend discharging on 7 days of p.o. antibiotics for skin laurent. He can follow up with me in approximately 2 weeks for suture and staple removal. Wound care instructions were placed in discharge note. Time Spent With Patient Time: Total time managing care of this patient today ____ minutes. Procedures Date of Service Date of Service: 08/13/23 Quality Stroke Does the patient have a stroke diagnosis?: No VTE Prior VTE?: No VTE Risk Level:: Medical - moderate - high VTE Device Contraindication: Treatment Not Indicated VTE Drug Contraindication: N/A - Med Ordered
[2023-08-13] MEDS: Heparin Sodium,Porcine 5,000 UNIT/ML VIAL 5000 UNIT SUBCUT (10:44)
--- NOTE | 2023-08-13 10:49 | P.DS_ITS ---
DS: Providers Provider Date of Service: 08/13/23 Date of admission: 08/09/23 16:16 Primary care physician: Unknown Physician Consults: 08/09/23 16:28 Consult to Vascular Surgery Routine Consulting Provider: [facility] Reason for consultation: Left 2nd toe infection w/possible abscess concerning for osteomyelitis 08/09/23 16:45 Addiction Medicine Routine Consulting Provider: Addiction Covering Reason for consultation: Cocaine and heroin use disorder 08/09/23 20:05 Consult to Wound Care Routine Reason for consultation: infection to left second toe, redness, inflammation with small open area. 08/12/23 07:29 Consult to Infectious Diseases Routine Consulting Provider: [facility] Infectious Disease Reason for consultation: Osteomylitis of the foot Has provider been notified: No DS: Diagnosis Discharge Diagnosis (1) Osteomyelitis of second toe of left foot: Status: Acute DS: Summary Hospital Course Hospital Course: Attending physician on admission: Simon Vera Chief Complaint: Left lower leg and 2nd toe swelling and redness Pt is a 63-year-old male with a PMH significant for?HTN, rheumatoid arthritis, hepatitis-C, aneurysm of descending thoracic aorta, and bipolar disorder who presents to the ED for evaluation of redness and swelling of left lower extremity with drainage from 2nd toe on left foot. Patient is a rather poor historian providing vague and sometimes contradictory information. Apparently patient hit his left foot on something a few weeks ago and ever since then has had worsening swelling and redness both in toe and left lower extremity. States he has been walking and walking and walking all the time . Left second toe started draining 1-2 days ago. Denies any pain in the extremity or foul-smelling discharge. Denies any other systemic acute complaint: No fever, chills, nausea, vomiting, diarrhea, abdominal pain. Denies chest pain/pressure, palpitations. No shortness of breath. Unclear if pt is homeless, but does admit to snorting heroin and cocaine occasionally . Denies IVDU. Also denies alcohol use or smoking. In the ED pt was afebrile with mildly elevated BP of 147/72, satting at 99% on RA. Labs were significant for H&H of 10.3/30.9, AST 82, ALT 73, CPK 398. No leukocytosis. Electrolytes WNL per renal function WNL. Lactic acid 0.9. Left foot x-ray showed comminuted fracture with osteolysis the head of the proximal phalanx of the 2nd toe with possible superimposed osteomyelitis. CT of left lower extremity pending. Pt was treated with vancomycin, Zosyn, and methadone 20 mg. ED physician contacted both vascular surgery and General surgery. Pt will be admitted to the hospital for treatment and further evaluation of left lower leg cellulitis concerning for abscess of 2nd toe concerning for osteomyelitis. Hospital course: The patient was admitted and treated with IV Vancomycin and Zosyn for osteomyelitis of the left second toe and surrounding cellulitis, and cultures have been negative; imaging showed multiple fractures in the toe with likely osteomyelitis. He was evaluated by Vascular surgery and underwent amputation of the toe with a clean margin. As such, Dr. Shah recommended oral antibiotics for seven days for surrounding cellulitis. He will be prescribed doxycycline 100 mg twice daily for one week and advised to follow up with Dr. Shah. He was continued on methadone for opioid dependence. Tramadol will be prescribed for post op pain Time Attestation Discharge coordination time: Greater than 30 minutes Quality: Safe Use of Opioids Does Pt have an Active Cancer Diagnosis on the Problem List?: No Quality: Stroke Does the patient have a stroke diagnosis?: No Physical Exam Vital Signs: Vital Signs: Last Vital Signs Temp 96.7 F L 08/13/23 06:46 Pulse 52 08/13/23 08:16 Resp 16 08/13/23 08:16 BP 137/80 08/13/23 06:46 Pulse Ox 96 08/13/23 06:46 O2 Del Method Room Air 08/13/23 09:10 O2 Flow Rate 4 08/12/23 09:11 BMI result Body Mass Index 21.4 DS: Data Data Completed and Pending Pending studies at discharge: Pending at discharge 08/12/23 08:37 Surgical [PTH] Routine Labs on day of discharge: Laboratory Results - last 24 hr 08/13/23 06:15 Creatinine 0.81 Estim Creat Clear Calc 98.7 Estimated GFR > 60 Vancomycin Trough 15.3 Preliminary micro results at discharge 08/09/23 13:48 Blood Culture - Preliminary Blood - Venous No growth after 48 hours. 08/09/23 13:21 Blood Culture - Preliminary Blood - Venous No growth after 48 hours. Discharge Plan Discharge Anticipated Discharge Date/Time: 08/13/23 10:46 Patient Disposition: Home, Self-Care Discharge Diagnosis: Cellulitis of the foot, osteomylitis Referrals: Physician,Unknown J [Primary Care Provider] - 1 Week Discharge Medications: New doxycycline monohydrate 100 mg capsule 100 mg PO BID Qty: 14 0RF Continued quetiapine 25 mg tablet 25 mg PO BEDTIME gabapentin 600 mg tablet 600 mg PO TID trazodone 50 mg tablet 50 mg PO BEDTIME hydroxyzine HCl 50 mg tablet 50 mg PO TID amlodipine 10 mg tablet 10 mg PO DAILY fluticasone propion-salmeterol [Advair Diskus] 500-50 mcg/dose blister with device 1 ea INHALATION BID losartan 25 mg tablet 25 mg PO DAILY montelukast 10 mg tablet 10 mg PO DAILY albuterol sulfate 90 mcg/actuation HFA aerosol inhaler 1 inh inhalation DAILY PRN (Reason: Shortness Of Breath Or Wheezing) Discharge Orders: Discharge Order (Routine); Ordered 08/13/23 Ordered By: Kurtis Lynn Diet: Advance to usual diet Activity on Discharge: As tolerated Stand Alone Forms: Patient Portal Discharge page Activity Restrictions/Additional Instructions: Wound care upon discharge: xeroform, 4x4 and Kerlix wrap to be changed daily. Please call Dr. Shah at [phone] for 2 week follow up for suture and staple removal Care Plan Goals: Full healing of the wound Health Concerns: ampuation site wound cellulitis Plan of Treatment: Wound care upon discharge: xeroform, 4x4 and Kerlix wrap to be changed daily. Please call Dr. Shah at [phone] for 2 week follow up for suture and staple removal Take Doxycyline as prescribed and follow up with Dr. Shah, call office Assessment: as above
--- NOTE | 2023-08-13 12:20 | HO.WOUND ---
Wound Consult: Follow up 63yr old male admitted to [facility] on 08/09/23 16:16 s/p left 2nd toe amp by Dr. Shah? - See progress notes and H&P for detailed history. Request by direct care team to assess pt's foot prior to d/c and ensure dressing supplies. Of note pt is homeless and has limited access to supplies. Left foot assessed and per Dr. Shah to be dressed daily with xeroform and gauze and wrap. Supplies given to pt to have for care outpatient. Pt instructed on step by step instructions and follow up appointment - demonstrates understanding. Recommendations: Defer to Dr. Shah's discharge instructions.
--- NOTE | 2023-08-13 12:22 | MHC.CM.PN ---
IMM 08/13/23 Patient is discharged today. He was started on Methadone by the Recovery team. They will arrange for [facility] for OP MMTP. Per Kelsie Boyd [facility] will not be open tomorrow. The patient will not be able to be dosed. The patient DC was going to be held for Methadone dose am; but the patient has decided to dc today. A last dose letter was provided for Friday. The wound nurse provided education and wound supplies to the patient. Patient declined to give an address for the [facility]NA. The MD is aware. Patient will follow up with PCP. The Family resource guide, 413 care and bus passes were provided to the patient.
== END 2023-08-13 13:54 | disposition home or self-care (01) | DRG 617 ==
LOC: HO.ED 14:41 → HO.EDOVER 16:33 → HO.S3 16:40
PROVIDERS: Internal Medicine; Surgery Vascular Surgery; Admitting Provider Student in an Organized Health Care Education/Training Program; Emergency Provider Emergency Medicine; Visit Provider Internal Medicine
PROC: 0Y6S0Z0 Detachment at Left 2nd Toe, Complete, Open Approach (ICD-10-PCS; principal; 2023-08-12 07:30)
DX: E11.69 Type 2 diabetes mellitus with other specified complication (principal); F11.23 Opioid dependence with withdrawal; L03.116 Cellulitis of left lower limb; L02.612 Cutaneous abscess of left foot; Z59.02 Unsheltered homelessness; M86.9 Osteomyelitis, unspecified; S92.532A Displaced fracture of distal phalanx of left lesser toe(s), initial encounter for closed fracture; X58.XXXA Exposure to other specified factors, initial encounter; F39 Unspecified mood [affective] disorder; F17.210 Nicotine dependence, cigarettes, uncomplicated; E11.628 Type 2 diabetes mellitus with other skin complications; I10 Essential (primary) hypertension; B19.20 Unspecified viral hepatitis C without hepatic coma; Z71.6 Tobacco abuse counseling; Z79.51 Long term (current) use of inhaled steroids; Z79.899 Other long term (current) drug therapy
CPT/HCPCS: 36415; 73630; 73701; 80048; 80053; 80076; 80202; 80307; 82550; 82565; 83605; 83735; 85025; 85027; 85652; 86140; 87040; 88305; 88311; 93005; 93971; 94640; 99285; J0131; J0665; J1170; J1644; J2060; J2250; J2270; J2405; J2543; J2704; J3010; J3370; J7120; Q9967

== ENCOUNTER → 2023-08-09 16:16 | Outpatient (BNV) | payer MEDICARE, MEDICAID, SELFPAY | PROVIDERS: Admitting Provider Student in an Organized Health Care Education/Training Program; Emergency Provider Emergency Medicine; Visit Provider Surgery Vascular Surgery | DX: Z48.89 Encounter for other specified surgical aftercare (principal); Z89.422 Acquired absence of other left toe(s) | CPT/HCPCS: 28820; 99222; 99232 ==

== ENCOUNTER → 2023-08-09 16:16 | Outpatient (BNV) | payer MEDICARE, MEDICAID, SELFPAY | PROVIDERS: Admitting Provider Student in an Organized Health Care Education/Training Program; Emergency Provider Emergency Medicine; Visit Provider Student in an Organized Health Care Education/Training Program | DX: M86.9 Osteomyelitis, unspecified (principal) | CPT/HCPCS: 99223; 99232; 99239 ==

== ENCOUNTER → 2023-08-09 16:16 | Outpatient (BNV) | payer MEDICARE, MEDICAID, SELFPAY | PROVIDERS: Admitting Provider Student in an Organized Health Care Education/Training Program; Emergency Provider Emergency Medicine; Visit Provider Nurse Practitioner Psychiatric/Mental Health | DX: F11.90 Opioid use, unspecified, uncomplicated (principal) | CPT/HCPCS: 99231 ==

== ENCOUNTER 2023-10-03 17:06 | Inpatient (IN) | payer MEDICARE, MEDICAID, SELFPAY ==
--- NOTE | ~2023-10-03 | MR_ITS ---
EXAMINATION: MR FOOT WITHOUT AND WITH CONTRAST, LEFT CLINICAL INFORMATION: Cellulitis status post amputation left toe. Progressing osteomyelitis. COMPARISON: Prior examinations including CT scan of the left foot 08/09/2023. TECHNIQUE: MRI of the left foot is performed without and with contrast. 8 mL of Gadavist contrast given intravenously for the contrast portion of the exam. FINDINGS: Second Digit: There are postoperative changes related to amputation distal to the level of the 2nd metatarsal head. There is a superficial defect/ulceration in the soft tissues distal to level of the 2nd metatarsal head. There is a fluid collection/sinus tract extending plantar and proximal to this extending to the dorsal aspect of the metatarsal head over approximately 2 cm. There is abnormal signal in the surrounding soft tissues with concomitant enhancement compatible with cellulitis. There is concomitant diffuse abnormal signal within the bone extending throughout the metatarsal manifested by decreased T1 and increased T2 signal. There is concomitant enhancement of the bone to the level of the midportion of the diaphysis. No definite bone erosion. However, the constellation of findings is most compatible with superficial ulceration sinus tract, surrounding cellulitis, and osteomyelitis of the distal half of two-thirds portion of the metatarsal. There is also marrow edema present within the middle cuneiform crossing the 2nd tarsometatarsal joint. No effusion. Significance of marrow change is indeterminant. This could reflect bone contusion or stress reaction or related to subtle arthrosis of the joint. Cannot exclude osteomyelitis. Third Digit: There is generalized abnormal signal with partial enhancement in the soft tissues surrounding the phalanges compatible with cellulitis. There is additional abnormal signal diffusely throughout the proximal phalanx without bone erosion. Findings suspicious for osteomyelitis. No definite involvement of the 3rd middle and distal phalanges. Equivocal abnormal signal and enhancement of the plantar aspect of the head of the 3rd metatarsal. Minimal nonspecific edema crossing the 3rd tarsometatarsal joint. This more likely reflects stress reaction or bone contusion rather than osteomyelitis. No joint effusion or prominent arthrosis. Fourth Tarsometatarsal Joint: There is abnormal signal crossing the joint most evident in the cuboid. No definite arthrosis or joint effusion. Significance is uncertain. Possibilities include contusion, stress reaction and subtle MRI occult arthrosis. Osteomyelitis thought to be less likely. Fifth Tarsometatarsal Joint: Unremarkable except for the marrow edema mentioned above in the cuboid. MUSCLES/TENDONS: There is diffuse fatty infiltration and atrophy throughout the muscles of the foot with increased T2 signal without enhancement. Findings compatible with denervation myositis. Generalized abnormal signal in the subcutaneous soft tissues dorsally without enhancement compatible with generalized edema. MR/MR foot LT wo/w con IMPRESSION: 1. Postsurgical changes related to amputation distal to the level of the 2nd metatarsal head. Findings most compatible with a superficial ulceration with a sinus tract extending to the dorsal aspect of the 2nd metatarsal head with surrounding cellulitis and osteomyelitis of at least the distal half of the metatarsal. Mild edema crossing the 2nd tarsometatarsal joint of uncertain significance. This could reflect stress reaction or bone contusion. Osteomyelitis thought to be less likely but cannot be excluded given the aforementioned abnormalities. 2. Third Digit: Findings suspicious for osteomyelitis of the proximal phalanx and possibly the plantar aspect of the head of the 3rd metatarsal. 3. Marrow edema crossing the 3rd tarsometatarsal joint more likely reflecting stress reaction rather than osteomyelitis. 4. Abnormal signal in the cuboid and crossing the 4th tarsometatarsal joint of uncertain etiology and significance. This could reflect stress reaction or bone contusion. Osteomyelitis thought to be less likely. 5. Diffuse edema in the subcutaneous soft tissues. 6. 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
[2023-10-03 17:22] VITALS: BP 182/86; PULSE 76; O2SAT 99
[2023-10-03 17:31] VITALS: BP 140/81; PULSE 65; RESP 18; TEMP 37.8; O2SAT 99; BMI 22.2
--- OUTSIDE RECORDS SUMMARY | 2023-10-03 17:48 | XMS_ITS | Continuity of Care Document ---
Author Name Unknown Organization [facility] Address [address] [place] [address]- Care Team Providers Care Grapple Skidder Operator Name Role Phone Clinton LOPEZ, [facility] Primary Care Physician En[place] [facility] Date(s): 02/21/23 - 05/14/23 [facility] [address] [place] [address]- Attending Physician: Pushpa Alonzo MD Allergies, Adverse [...] 19:17:00 EST, Inhaler, Route to Pharmacy Electronically, [id number], [facility]/pharmacy #[id number], 188, cm, 04/18/22 9:50:00 EDT, [...] tablet, 1 Refills, Maintenance, 03/20/23 11:36:00 EDT, [facility] STORE [id number], 188, cm, 12/06/22 13:35:00 EDT, Height, 77.5, kg, 04/24/21 9:38:00 EDT, Dry Weight Start Date: 03/20/23 Status: Ordered hydrOXYzine hydrochloride 50 mg oral tablet 1 tablet, By Mouth, 3 times a day, # 90 tablet, 1 Refills, Maintenance, 04/24/23 17:33:00 EDT, [id number], 188, cm, 12/06/22 13:35:00 EDT, Height Start Date: 04/24/23 Status: Ordered lamotrigine 200 mg oral tablet 2 tablet = 400 mg, By Mouth, 2 times a day Start Date: 03/13/20 Status: Ordered losartan 25 mg oral tablet 1 tablet, By Mouth, Daily, # 90 tablet, 3 Refills, Maintenance, 10/02/22 13:36:00 EST, [facility]/pharmacy#[id number], 188, cm, 10/02/22 13:06:00 EST, Height, 77.5, kg, 04/24/21 9:38:00 EDT, Dry Weight Start Date: 10/02/22 Status: Ordered montelukast 10 mg oral tablet 1, tablet, By Mouth, Daily at bedtime, # 90 tablet, Refills 3, Tot. Refills 3, Maintenance, 10/02/22 13:36:00 EST, Route to Pharmacy Electronically, [facility]/pharmacy #[id number], 188, cm, 10/02/22 13:06:00 EST, Height, 77.5, kg, 04/24/21 9:38:00 EDT, Dry Weight Start Date: 10/02/22 Status: Ordered ProAir HFA 90 mcg/inh inhalation aerosol 1 puffs, Inhalation, Daily, PRN NEEDED FOR WHEEZE, # 18 each, 5 Refills, Maintenance, 12/27/22 11:29:00 EDT, [facility] STORE [id number], 25, INHALE 1 PUFF EVERY DAY NEEDED FOR WHEEZE, 188, cm, 12/06/22 13:35:00 EDT, Height, 77.5, kg, 04/24/21 9:38:00 EDT,... Start Date: 12/27/22 Status: Ordered QUEtiapine 25 mg oral tablet 1, tablet, By Mouth, Daily at bedtime, PRN, # 30 tablet, Refills 1, Maintenance, NEEDED FOR SLEEP, 12/30/22 9:48:00 EDT, Route to Pharmacy Electronically, [facility] [id number], 188, cm, 12/06/22 13:35:00 EDT, Height, 77.5, kg, 04/24/21 9:38:00 EDT, Dry... Start Date: 12/30/22 Status: Ordered record press tender record press tender, See Instructions, # 1 each, Refills 0, Tot. Refills 0, Maintenance, Dx psoas abscess, 01/27/17 14:56:45, Compound Start Date: 01/27/17 Status: Ordered traZODone 50 mg oral tablet 1, tablet, By Mouth, Daily at bedtime, # 30 tablet, Refills 2, Tot. Refills 2, Maintenance, 12/05/22 15:32:00 EDT, Route to Pharmacy Electronically, [facility]/pharmacy #[id number], 188, cm, 10/02/22 13:06:00 EST, [...] Team Personnel Name: Lani Madrigal RN Position: [facility] SN Payroll Benefits Administrator Member Role: Primary Care Nurse Name: Wanda Reis NP Position: [facility] Associate Professional Member Role: Primary Care Nurse Address: Address: [address] [facility] [place] [address]- [place] Name: Felisa Quiroga RN Position: [facility] RN Supv Member Role: Primary Care Nurse Name: Carolynn Thompson RN Position: [facility] RN Member Role: Primary Care Nurse Name: Luci Haile RN Position: [facility] RN Member Role: Primary Care Nurse Name: Pushpa Alonzo MD Position: [facility] Physician - Primary Care Member Role: PCP Address: Address: [address] [place] [address] [address] [place] [address]- [place] Name: Augustina Adams RN Position: [facility] RN Member Role: Primary Care Nurse Name: Chika Jha RN Position: [facility] SN Payroll Benefits Administrator Member Role: Primary Care Nurse Name: Chapito Armstrong RN Position: [facility] RN Member Role: Primary Care Nurse Name: Carmina Rose RN Position: [facility] RN Member Role: Primary Care Nurse Name: Leanna King RN Position: [facility] RN Member Role: Primary Care Nurse Care Team Related Persons Name: NO, ONE Name: RONNY ROGERS Address: [address] [place] [address] Name: KYLE COLEMAN Address: home [address] [place] [address]
--- OUTSIDE RECORDS SUMMARY | 2023-10-03 17:49 | XMS_ITS | Continuity of Care Document ---
Author Name Unknown Organization [facility] Address [address] [place] [address]- Care Team Providers Care Supervisor Harvesting Name Role Phone Clinton LOPEZ, [facility] Primary Care Physician [place] [facility](s): 04/21/23 - 05/21/23 [facility] [address] [place], [place] [address] Allergies, Adverse Reactions, Alerts Substance Reaction [...] 19:17:00 EST, Inhaler, Route to Pharmacy Electronically, [id number], [facility]/pharmacy #[id number], 188, cm, 04/18/22 9:50:00 EDT, [...] Refills, Maintenance, 03/20/23 11:36:00 EDT, [facility], 188, cm, 12/06/22 13:35:00 EDT, Height, 77.5, kg, 04/24/21 9:38:00 EDT, Dry Weight Start Date: 03/20/23 Status: Ordered hydrOXYzine hydrochloride 50 mg oral tablet 1 tablet, By Mouth, 3 times a day, # 90 tablet, 1 Refills, Maintenance, 04/24/23 17:33:00 EDT, [id number], 188, cm, 12/06/22 13:35:00 EDT, Height Start Date: 04/24/23 Status: Ordered lamotrigine 200 mg oral tablet 2 tablet = 400 mg, By Mouth, 2 times a day Start Date: 03/13/20 Status: Ordered losartan 25 mg oral tablet 1 tablet, By Mouth, Daily, # 90 tablet, 3 Refills, Maintenance, 10/02/22 13:36:00 EST, [facility]/pharmacy#[id number], 188, cm, 10/02/22 13:06:00 EST, Height, 77.5, kg, 04/24/21 9:38:00 EDT, Dry Weight Start Date: 10/02/22 Status: Ordered montelukast 10 mg oral tablet 1, tablet, By Mouth, Daily at bedtime, # 90 tablet, Refills 3, Tot. Refills 3, Maintenance, 10/02/22 13:36:00 EST, Route to Pharmacy Electronically, [facility]/pharmacy #[id number], 188, cm, 10/02/22 13:06:00 EST, Height, 77.5, kg, 04/24/21 9:38:00 EDT, Dry Weight Start Date: 10/02/22 Status: Ordered ProAir HFA 90 mcg/inh inhalation aerosol 1 puffs, Inhalation, Daily, PRN NEEDED FOR WHEEZE, # 18 each, 5 Refills, Maintenance, 12/27/22 11:29:00 EDT, [facility], 25, INHALE 1 PUFF EVERY DAY NEEDED FOR WHEEZE, 188, cm, 12/06/22 13:35:00 EDT, Height, 77.5, kg, 04/24/21 9:38:00 EDT,... Start Date: 12/27/22 Status: Ordered QUEtiapine 25 mg oral tablet 1, tablet, By Mouth, Daily at bedtime, PRN, # 30 tablet, Refills 1, Maintenance, NEEDED FOR SLEEP, 12/30/22 9:48:00 EDT, Route to Pharmacy Electronically, [id number], 188, cm, 12/06/22 13:35:00 EDT, Height, 77.5, kg, 04/24/21 9:38:00 EDT, Dry... Start Date: 12/30/22 Status: Ordered motion picture equipment machinist motion picture equipment machinist, See Instructions, # 1 each, Refills 0, Tot. Refills 0, Maintenance, Dx psoas abscess, 01/27/17 14:56:45, Compound Start Date: 01/27/17 Status: Ordered traZODone 50 mg oral tablet 1, tablet, By Mouth, Daily at bedtime, # 30 tablet, Refills 2, Tot. Refills 2, Maintenance, 12/05/22 15:32:00 EDT, Route to Pharmacy Electronically, [facility]/pharmacy #[id number], 188, cm, 10/02/22 13:06:00 EST, [...] Name: Lani Madrigal RN Position: [facility] SN Sports Announcer Member Role: Primary Care Nurse Name: Wanda Reis NP Position: [facility] Associate Professional Member Role: Primary Care Nurse Address: Address: [address] [facility] [place] [address]- [place] Name: Felisa Quiroga RN Position: [facility] RN Supv Member Role: Primary Care Nurse Name: Carolynn Thompson RN Position: S RN Member Role: Primary Care Nurse Name: Luci Haile RN Position: [facility] RN Member Role: Primary Care Nurse Name: Pushpa Alonzo MD Position: [facility] Physician - Primary Care Member Role: PCP Address: Address: [address] [place] [address] [address] [facility] [place] [address]- [place] Name: Augustina Adams RN Position: [facility] RN Member Role: Primary Care Nurse Name: Chika Jha RN Position: [facility] SN Sports Announcer Member Role: Primary Care Nurse Name: Chapito Armstrong RN Position: [facility] RN Member Role: Primary Care Nurse Name: Carmina Rose RN Position: [facility] RN Member Role: Primary Care Nurse Name: Leanna King RN Position: [facility] RN Member Role: Primary Care Nurse Care Team Related Persons Name: NO, KT Name: RONNY ROGERS Address: [address] [place] [address] Name: KYLE COLEMAN Address: home [address] [place] [address]
--- OUTSIDE RECORDS SUMMARY | 2023-10-03 17:49 | XMS_ITS | Continuity of Care Document ---
Author Name Unknown Organization [facility] Adult Address [address] [place] [address]- Care Team Providers Care Wafer Fab Technician Name Role Phone Clinton LOPEZ, [facility] Primary Care Physician [place] [facility]s): 04/14/23 - 05/14/23 [facility] Adult [address], [place] [address] Attending Physician: Admtr, [id number] Admitting Physician: Admtr, [id number] Referring Physician: Admtr, [id number] Allergies, Adverse Reactions, Alerts Substance Reaction Severity Status nafcillin Rash Active lithium Active Remeron [D]Shortness of breath Activ e Geodon Active Immunizations Given and Recorded Vaccine Date Status Refusal Reason tetanus/diphtheria/pertussis, acel(Tdap) 07/10/21 Recorded influenza virus vaccine, inactivated 10/01/18 Davin rded pneumococcal 23-valent vaccine 1 05/13/18 Given 1Result Comment: [facility] [id number] Medications Advair Diskus 500 mcg-50 mcg inhalation powder 1, puffs, Inhalation, 2 times a day, # 3 each, Refills 3, Tot. Refills 3, Maintenance, 08/21/22 19:17:00 EST, Inhaler, Route to Pharmacy Electronically, [id number], [facility]/pharmacy #[id number], 188, cm, 04/18/22 9:50:00 EDT, Height, 7... Start Date: 08/21/22 Stop Date: 08/16/23 Status: Ordered amLODIPine 10 mg oral tablet 1 tablet, By Mouth, Daily, # 90 tablet, 3 Refills, Maintenance, 10/02/22 13:35:00 EST, [facility]/pharmacy#[id number], 188, cm, 10/02/22 13:06:00 EST, Height, 77.5, kg, 04/24/21 9:38:00 EDT, Dry Weight Start Date: 10/02/22 Status: Ordered gabapentin 600 mg oral tablet 1 tablet, By Mouth, 3 times a day, # 90 tablet, 1 Refills, Maintenance, 03/20/23 11:36:00 EDT, [id number], 188, cm, 12/06/22 13:35:00 EDT, Height, 77.5, kg, 04/24/21 9:38:00 EDT, Dry Weight Start Date: 03/20/23 Status: Ordered hydrOXYzine hydrochloride 50 mg oral tablet 1 tablet, By Mouth, 3 times a day, # 90 tablet, 1 Refills, Maintenance, 04/24/23 17:33:00 EDT, [id number], 188, cm, 12/06/22 13:35:00 EDT, Height Start Date: 04/24/23 Status: Ordered lamotrigine 200 mg oral tablet 2 tablet = 400 mg, By Mouth, 2 times a day Start Date: 03/13/20 Status: Ordered losartan 25 mg oral tablet 1 tablet, By Mouth, Daily, # 90 tablet, 3 Refills, Maintenance, 10/02/22 13:36:00 EST, [facility]/pharmacy#[id number], 188, cm, 10/02/22 13:06:00 EST, Height, 77.5, kg, 04/24/21 9:38:00 EDT, Dry Weight Start Date: 10/02/22 Status: Ordered montelukast 10 mg oral tablet 1, tablet, By Mouth, Daily at bedtime, # 90 tablet, Refills 3, Tot. Refills 3, Maintenance, 10/02/22 13:36:00 EST, Route to Pharmacy Electronically, [facility]/pharmacy #[id number], 188, cm, 10/02/22 13:06:00 EST, Height, 77.5, kg, 04/24/21 9:38:00 EDT, Dry Weight Start Date: 10/02/22 Status: Ordered ProAir HFA 90 mcg/inh inhalation aerosol 1 puffs, Inhalation, Daily, PRN NEEDED FOR WHEEZE, # 18 each, 5 Refills, Maintenance, 12/27/22 11:29:00 EDT, [facility] STORE [id number], 25, INHALE 1 PUFF EVERY DAY NEEDED FOR WHEEZE, 188, cm, 12/06/22 13:35:00 EDT, Height, 77.5, kg, 04/24/21 9:38:00 EDT,... Start Date: 12/27/22 Status: Ordered QUEtiapine 25 mg oral tablet 1, tablet, By Mouth, Daily at bedtime, PRN, # 30 tablet, Refills 1, Maintenance, NEEDED FOR SLEEP, 12/30/22 9:48:00 EDT, Route to Pharmacy Electronically, [facility] [id number], 188, cm, 12/06/22 13:35:00 EDT, Height, 77.5, kg, 04/24/21 9:38:00 EDT, Dry... Start Date: 12/30/22 Status: Ordered dressmaker helper dressmaker helper, See Instructions, # 1 each, Refills 0, Tot. Refills 0, Maintenance, Dx psoas abscess, 01/27/17 14:56:45, Compound Start Date: 01/27/17 Status: Ordered traZODone 50 mg oral tablet 1, tablet, By Mouth, Daily at bedtime, # 30 tablet, Refills 2, Tot. Refills 2, Maintenance, 12/05/22 15:32:00 EDT, Route to Pharmacy Electronically, [facility]/pharmacy #[id number], 188, cm, 10/02/22 13:06:00 EST, Height, [...] Event Display: Discharge/Transfer Note Hospital Authored Date: [id number] This note will serve as an addendum [...] became more and more insistent upon leaving [facility] and going to [facility], just because he wanted to receive [...] Team Personnel Name: Lani Madrigal RN Position: S SN Junior Art Director Member Role: Primary Care Nurse Name: Wanda Reis NP Position: [facility] Associate Professional Member Role: Primary Care Nurse Address: Address: [address] [place] [id number]- [place] Name: Felisa Quiroga RN Position: S RN Supv Member Role: Primary Care Nurse Name: Carolynn Thompson RN Position: S RN Member Role: Primary Care Nurse Name: Luci Haile RN Position: S RN Member Role: Primary Care Nurse Name: Pushpa Alonzo MD Position: [facility] Physician - Primary Care Member Role: PCP Address: Address: [address] [place] [address] 3rd Floor [facility] [place] [address]- [place] Name: Augustina Adams RN Position: S RN Member Role: Primary Care Nurse Name: Chika Jha RN Position: [facility] SN Junior Art Director Member Role: Primary Care Nurse Name: Chapito Armstrong RN Position: S RN Member Role: Primary Care Nurse Name: Carmina Rose RN Position: S RN Member Role: Primary Care Nurse Name: Leanna King RN Position: S RN Member Role: Primary Care Nurse Care Team Related Persons Name: NO, KT Name: RONNY ROGERS Address: home [address] [place] [address] Name: KYLE COLEMAN Address: home [address] [place] [address]
--- OUTSIDE RECORDS SUMMARY | 2023-10-03 17:49 | XMS_ITS | Continuity of Care Document ---
Author Name Unknown Organization [facility] Adult Address [address] [place] [address]- Care Team Providers Care Barrel Cutter Name Role Phone Clinton LOPEZ, Located Within [facility] Primary Care Physician Encounter [facility] Date(s): 08/18/23 - 09/17/23 [facility] Adult [address] [place] [address]- Allergies, Adverse Reactions, Alerts Substance Reaction Severity [...] 19:17:00 EST, Inhaler, Route to Pharmacy Electronically, [id number], [facility]/pharmacy #[id number], 188, cm, 04/18/22 9:50:00 [...] Refills, Maintenance, 03/20/23 11:36:00 EDT, [id number], 188, cm, 12/06/22 13:35:00 EDT, Height, 77.5, kg, 04/24/21 9:38:00 EDT, Dry Weight Start Date: 03/20/23 Status: Ordered hydrOXYzine hydrochloride 50 mg oral tablet 1 tablet, By Mouth, 3 times a day, # 90 tablet, 1 Refills, Maintenance, 04/24/23 17:33:00 EDT, [id number], 188, cm, 12/06/22 13:35:00 EDT, Height Start Date: 04/24/23 Status: Ordered lamotrigine 200 mg oral tablet 2 tablet = 400 mg, By Mouth, 2 times a day Start Date: 03/13/20 Status: Ordered losartan 25 mg oral tablet 1 tablet, By Mouth, Daily, # 90 tablet, 3 Refills, Maintenance, 10/02/22 13:36:00 EST, [facility]/pharmacy#[id number], 188, cm, 10/02/22 13:06:00 EST, Height, 77.5, kg, 04/24/21 9:38:00 EDT, Dry Weight Start Date: 10/02/22 Status: Ordered montelukast 10 mg oral tablet 1, tablet, By Mouth, Daily at bedtime, # 90 tablet, Refills 3, Tot. Refills 3, Maintenance, 10/02/22 13:36:00 EST, Route to Pharmacy Electronically, [facility]/pharmacy #[id number], 188, cm, 10/02/22 13:06:00 EST, Height, 77.5, kg, 04/24/21 9:38:00 EDT, Dry Weight Start Date: 10/02/22 Status: Ordered ProAir HFA 90 mcg/inh inhalation aerosol 1 puffs, Inhalation, Daily, PRN NEEDED FOR WHEEZE, # 18 each, 5 Refills, Maintenance, 12/27/22 11:29:00 EDT, [id number], 25, INHALE 1 PUFF EVERY DAY NEEDED FOR WHEEZE, 188, cm, 12/06/22 13:35:00 EDT, Height, 77.5, kg, 04/24/21 9:38:00 EDT,... Start Date: 12/27/22 Status: Ordered QUEtiapine 25 mg oral tablet 1, tablet, By Mouth, Daily at bedtime, PRN, # 30 tablet, Refills 1, Maintenance, NEEDED FOR SLEEP, 07/07/23 9:18:00 EDT, Route to Pharmacy Electronically, [id number], 188, cm, 12/06/22 13:35:00 EDT, Height Start Date: 07/07/23 Status: Ordered real estate attorney real estate attorney, See Instructions, # 1 each, Refills 0, Tot. Refills 0, Maintenance, Dx psoas abscess, 01/27/17 14:56:45, Compound Start Date: 01/27/17 Status: Ordered traZODone 50 mg oral tablet 1, tablet, By Mouth, Daily at bedtime, # 30 tablet, Refills 2, Tot. Refills 2, Maintenance, 12/05/22 15:32:00 EDT, Route to Pharmacy Electronically, [facility]/pharmacy #[id number], 188, cm, 10/02/22 13:06:00 [...] Care team information Care Team Personnel Name: Carmina Jones RN Position: [facility] RN Member Role: Primary Care Nurse Name: Lani Madrigal RN Position: [facility] SN Machine Operator Slitter Technician Member Role: Primary Care Nurse Name: Wanda Reis NP Position: [facility] Associate Professional Member Role: Primary Care Nurse Address: Address: [address] [facility] [place] [address]- [place] Name: Felisa Sin RN Position: [facility] RN Supv Member Role: Primary Care Nurse Name: Carolynn Thompson RN Position: S RN Member Role: Primary Care Nurse Name: Luci Haile RN Position: [facility] RN Member Role: Primary Care Nurse Name: Pushpa Alonzo MD Position: [facility] Physician - Primary Care Member Role: PCP Address: Address: [address] [place] [address] 3rd Floor [facility] [place] [address]- [place] Name: Augustina Adams RN Position: [facility] RN Member Role: Primary Care Nurse Name: Chika Jha RN Position: [facility] SN Machine Operator Slitter Technician Member Role: Primary Care Nurse Name: Chapito Armstrong RN Position: [facility] ED RN W/OE and Tasks Member Role: Primary Care Nurse Name: Leanna King RN Position: [facility] RN Member Role: Primary Care Nurse Care Team Related Persons Name: NO, KT Name: RONNY ROGERS Address: [address] [place] [address] Name: KYLE COLEMAN Address: home [address] [place] [address]
[2023-10-03 17:54] LABS: MANUAL DIFF FLAG NO
[2023-10-03 17:56] LABS: Basophils Percent Auto 0.4 % (0-2); Eosinophils Absolute Auto 0.1 X10*3/uL (0.0-0.4); Eosinophils Percent Auto 2.7 % (0-4); Hematocrit 30.1 % (42.0-52.0); Hemoglobin 9.9 g/dl (14.0-18.0); Imm Gran Abs Auto 0.02 X10*3/uL (0.00-0.03); Imm Gran Pct Auto 0.4 % (0.0-0.4); Lymphocytes Absolute Auto 0.6 X10*3/uL (1.2-4.9); Lymphocytes Percent Auto 11.8 % (20-40); Mean Corpuscular HGB Conc 32.9 g/dl (31.0-36.0); Mean Corpuscular Hemoglobin 30.7 pg (27.0-33.0); Mean Corpuscular Volume 93.2 fL (80.0-98.0); Mean Platelet Volume 10.2 fL (9.4-12.4); Monocytes Absolute Auto 0.5 X10*3/uL (0.1-1.2); Monocytes Percent Auto 9.9 % (2-11); Neutrophils Absolute Auto 3.6 x10*3/uL (2.0-8.3); Neutrophils Percent Auto 74.8 % (45-73); Platelet Count 110 X10*3/uL (160-400); Red Blood Count 3.23 X10*6/uL (4.60-5.80); Red Cell Distribution Width 14.2 % (11.0-16.0); White Blood Count 4.8 X10*3/uL (4.8-10.8)
--- NOTE | 2023-10-03 18:56 | ED_ITS ---
HPI - Extremity Injury (Lower) General Chief Complaint: Extremity Injury, Lower Stated Complaint: L ANKLE PAIN, PT STATES SHE DID METHADONE XFEW HRS Time Seen by Provider: 10/03/23 18:54 Source: patient Mode of arrival: EMS Limitations: no limitations History of Present Illness HPI Narrative: 63-year-old male history of heroin use disorder, cocaine use disorder HTN, rheumatoid arthritis, hepatitis-C, aneurysm of descending thoracic aorta, neuropathy, asthma and bipolar disorder recent hospitalization 08/09/2023 for comminuted fracture with osteomyelitis of the left foot head of the proximal phalanx of the 2nd toe with significant cellulitis requiring amputation of the 2nd toe presents emergency department for evaluation of redness swelling of his left ankle and can not times 2 days. Patient denied fever, chills, nausea, vomiting or diarrhea. Patient states that he is homeless. He does use intranasal heroin and he has been buying methadone on the street since he has not been able to get to the methadone clinic. He denies injection drug use. Related Data Home Medications Medication Instructions Recorded Confirmed albuterol sulfate 90 mcg/actuation 1 inh inhalation DAILY PRN 08/09/23 08/09/23 aerosol inhaler Shortness Of Breath Or Wheezing amlodipine 10 mg tablet 10 mg PO DAILY 08/09/23 08/09/23 fluticasone 500 mcg-salmeterol 50 1 ea inhalation BID 08/09/23 08/09/23 mcg/dose blistr powdr for inhalation (Advair Diskus) gabapentin 600 mg tablet 600 mg PO TID 08/09/23 08/09/23 hydroxyzine HCl 50 mg tablet 50 mg PO TID 08/09/23 08/09/23 losartan 25 mg tablet 25 mg PO DAILY 08/09/23 08/09/23 montelukast 10 mg tablet 10 mg PO DAILY 08/09/23 08/09/23 quetiapine 25 mg tablet 25 mg PO BEDTIME 08/09/23 08/09/23 trazodone 50 mg tablet 50 mg PO BEDTIME 08/09/23 08/09/23 Previous Rx's Medication Instructions Recorded doxycycline monohydrate 100 mg 100 mg PO BID #14 caps 08/13/23 capsule tramadol 50 mg tablet 50 mg PO Q8H PRN pain (scale score 08/13/23 7-10) #15 tabs Allergies Allergy/AdvReac Type Severity Reaction Status Date / Time Penicillins [PENICILLINS] Allergy Unknown UNKNOWN Verified 08/12/23 06:58 risperidone [From RISPERDAL] Allergy Unknown UNKNOWN Verified 08/12/23 06:58 pregabalin [From Lyrica] Allergy Unknown Verified 10/03/23 17:25 From GEODON Allergy Unknown UNKNOWN Uncoded 08/12/23 06:58 Review of Systems 2 Review of Systems: Yes all other systems are reviewed and are negative [facility] Past Medical History [facility] Narrative: Social history: Patient is homeless. He states he does smoke cigarettes. He occasionally drinks alcohol. He does use intranasal heroin, cocaine and he has been by methadone on the streets. Onset Date is defined in the Problem List Problems that require an onset date and time if occurred within 24 hrs of arrival to the ED Aortic Dissection and Rupture; Neurologic impairment; Cardiopulmonary Arrest; Endotracheal Intubation; Insertion or Replacement of Mechanical Circulatory Assist Device Medical History Bipolar disorder Aneurysm of descending thoracic aorta Hepatitis C Rheumatoid arthritis Active substance abuse HTN (hypertension) Arthritis Glaucoma Neuropathy Asthma Bipolar disorder Surgical History No pertinent past surgical history Social History Social History Household Members: None Housing: Homeless Do you presently have visiting nurse or other home services: No Alcohol intake: current Alcohol intake frequency: a few times a month Patient Tobacco Use Status: Current someday Tobacco user Tobacco use type: Cigarette Cigarette Packs Per Day: 2 Cigarettes Per Day: 3 Years Smoked: 2 Smoked in Last 30 Days: Yes e-Cigarette/Vaping Use: Currently Using Second Hand Smoke Exposure: Yes Use of substances other than those prescribed or required for medical reasons: Yes Substance Use Type: Heroin and Other Substance Use Type Other:: methadone - from street dealer Substance Use Frequency: Occasionally Advance Directives: No Advance Directives Information Provided: No Physical Exam 2 Vital Signs: Vital Signs: Last Vital Signs Temp 100.0 F 10/03/23 17:31 Pulse 65 10/03/23 17:31 Resp 18 10/03/23 17:31 BP 140/81 H 10/03/23 17:31 Pulse Ox 99 10/03/23 17:31 O2 Del Method Room Air 10/03/23 17:31 BMI result Body Mass Index 22.2 Vital signs did reveal an elevated temperature of 100.0 degrees F orally Exam General: Awake, alert in no distress Head: Normocephalic, atraumatic EENT: PERRL, Lids normal, sclera normal, conjunctiva normal, nose normal , ears normal, throat without erythema or exudates Neck: Supple, no adenopathy, no trachea midline or C-spine tenderness Lung: breath sounds symmetric, no wheezing, rales or rhonchi Chest: symmetric movement, nontender Heart: regular rate and rhythm, normal S1, S2 no murmurs or rubs Abdomen: soft, non-tender, nondistended, normal bowel sounds Back: no vertebral tenderness, no CVAT Extremities: Patient has sutures still in place from the amputation and nares purulent discharge noted at the amputation site, patient has erythema of his foot and ankle extending up the calf to just below the knee, the erythema is warm to the touch the area has soft tissue swelling as well Neuro: Awake, alert, oriented, normal speech, cranial nerves intact, moves all extremities symmetrically Psych: Pleasant, cooperative Medical Decision Making Medical Decision Making MDM Narrative: 63-year-old male history of heroin use disorder, cocaine use disorder HTN, rheumatoid arthritis, hepatitis-C, aneurysm of descending thoracic aorta, neuropathy, asthma and bipolar disorder recent hospitalization 08/09/2023 for comminuted fracture with osteomyelitis of the left foot head of the proximal phalanx of the 2nd toe with significant cellulitis requiring amputation of the 2nd toe presents emergency department for evaluation of redness swelling of his left ankle and can not times 2 days. Patient denied fever, chills, nausea, vomiting or diarrhea. Vital signs did reveal low-grade fever. Physical examination is consistent with cellulitis and purulent discharge from the amputation site on the left 2nd toe as well cellulitis of the foot extending up the ankle and calf Following evaluation was ordered: CBC, CMP, lactic acid, blood cultures x2, COVID-19, influenza, wound culture left 2nd purulent toe wounds Patient was treated with: Zosyn 4.5 g IV (patient was treated with this medication previous admission despite penicillin allergy), vancomycin 2 g IV and normal saline 1 mg IV 19:27 My interpretation patient's laboratory evaluation as follows: WBC normal 4800, anemia with an H&H of 9.9 and 30.1-this is chronic. Low platelet count 110,000- chronic. Lactic acid was normal 1.2. AST and ALT are elevated 61 and 61- chronic. COVID-19, influenza pending. I will discuss admission with the covering hospitalist. Differential Diagnosis Differential Diagnoses: The differential diagnosis associated with the presentation includes Differential diagnosis includes was not limited cellulitis, osteomyelitis, abscess Admission/Observation Consideration of admission/observation: Escalation of care including admission/observation considered Consult Healthcare Provider Management of the patient was discussed with: Hospitalist Lab Data MDM Lab Attestation statement: I reviewed the patient's lab results. 10/03/23 17:44 10/03/23 17:44 Labs: Lab Results 10/03/23 Range/Units 17:44 WBC 4.8 (4.8-10.8) X10*3/uL RBC 3.23 L (4.60-5.80) X10*6/uL Hgb 9.9 L (14.0-18.0) g/dl Hct 30.1 L (42.0-52.0) % MCV 93.2 (80.0-98.0) fL MCH 30.7 (27.0-33.0) pg MCHC 32.9 (31.0-36.0) g/dl RDW 14.2 (11.0-16.0) % Plt Count 110 L (160-400) X10*3/uL MPV 10.2 (9.4-12.4) fL Immature Gran % (Auto) 0.4 (0.0-0.4) % Neut % (Auto) 74.8 H (45-73) % Lymph % (Auto) 11.8 L (20-40) % Hancock % (Auto) 9.9 (2-11) % Eos % (Auto) 2.7 (0-4) % Baso % (Auto) 0.4 (0-2) % Lymph # (Auto) 0.6 L (1.2-4.9) X10*3/uL Hancock # (Auto) 0.5 (0.1-1.2) X10*3/uL Eos # (Auto) 0.1 (0.0-0.4) X10*3/uL Baso # (Auto) 0.0 (0.0-0.2) X10*3/uL Abs Immat Gran (auto) 0.02 (0.00-0.03) X10*3/uL Absolute Neuts (auto) 3.6 (2.0-8.3) x10*3/uL Absolute Nucleated RBC 0.000 (0.0-0.012) X10*3/uL Nucleated RBC % (auto) 0.0 (0.0-0.2) /100WBC Discharge Plan Discharge Clinical Impression: Opiate use Cellulitis Qualifiers: Site of cellulitis: extremity Site of cellulitis of extremity: lower extremity Laterality: left Qualified Code(s): L03.116 - Cellulitis of left lower limb Abscess of toe Qualifiers: Laterality: left Qualified Code(s): L02.612 - Cutaneous abscess of left foot Patient Disposition: Admitted As Inpatient Prescriptions: No Action quetiapine 25 mg tablet 25 mg PO BEDTIME gabapentin 600 mg tablet 600 mg PO TID trazodone 50 mg tablet 50 mg PO BEDTIME hydroxyzine HCl 50 mg tablet 50 mg PO TID amlodipine 10 mg tablet 10 mg PO DAILY fluticasone propion-salmeterol [Advair Diskus] 500-50 mcg/dose blister with device 1 ea INHALATION BID losartan 25 mg tablet 25 mg PO DAILY montelukast 10 mg tablet 10 mg PO DAILY albuterol sulfate 90 mcg/actuation HFA aerosol inhaler 1 inh inhalation DAILY PRN (Reason: Shortness Of Breath Or Wheezing) doxycycline monohydrate 100 mg capsule 100 mg PO BID Qty: 14 0RF tramadol 50 mg tablet 50 mg PO Q8H PRN (Reason: pain (scale score 7-10)) Qty: 15 0RF
[2023-10-03 19:13] LABS: Alanine Aminotransferase 61 U/L (0-40); Albumin Level 3.3 g/dL (3.5-5.0); Alkaline Phosphatase 67 U/L (39-117); Anion Gap 9 (12-20); Aspartate Amino Transferase 61 U/L (5-37); Bilirubin Total 0.4 mg/dL (0.0-1.0); Blood Urea Nitrogen 11 mg/dL (9-16); Calcium 8.8 mg/dL (8.4-10.2); Carbon Dioxide 26 mmol/L (22-29); Chloride 104 mmol/L (96-108); Estimated Glomerular Filt Rate > 60; Glucose Random 102 mg/dL (60-115); Lipase 13 U/L (8-78); Potassium 4.2 mmol/L (3.3-5.1); Sodium 135 mmol/L (135-145); Total Protein 7.1 g/dL (6.5-8.0)
[2023-10-03 19:13] LABS: Lactic Acid 1.2 mmol/L (0.5-2.0)
[2023-10-03 19:24] VITALS: BP 149/93; PULSE 68; RESP 17; TEMP 37.8; O2SAT 100
[2023-10-03] MEDS: 0.9 % Sodium Chloride 1,000 ML 999 ML IV (19:36)
[2023-10-03] MEDS: Piperacillin Sodium/Tazobactam 4.5 GM in 0.9 % Sodium Chloride 100 ML IV (19:37)
--- NOTE | 2023-10-03 19:37 | PC.NURSE ---
pt a&ox4, low grade fever, hypertensive, other vss. pt reports minimal pain to left foot at rest, increased redness/swelling to left foot/calf, s/p 2nd toe amputation ~ 10 days ago, purulent discharge from inscision site. medicated per NOV - 1L NS running, hx penicillin allergy, pt previously tolerated zosyn - MD aware. no new orders at this time.
[2023-10-03 19:58] LABS: COVID-19 Test Negative (Negative); IDNOW Serial# 16C4AD1C; IDNOW Serial# 55D5AD1C; Influenza A Negative (Negative); Influenza B2 Negative (Negative)
[2023-10-03 20:00] VITALS: BP 158/94; PULSE 63; RESP 18; O2SAT 96
--- NOTE | 2023-10-03 20:46 | PHA.MEDREC ---
Addendum entered by Alessandra Redd, [facility] 10/04/23 14:42: SPOKE WITH RAO ALEJO REGARDING LAMICTAL. PATIENT TOLD MD THAT HE IS NOT TAKING LAMICTAL AND HAS BEEN OFF FOR SEVERAL MONTHS. Original Note: Pharmacy Consult ? Medication Reconciliation Pharmacy has completed the medication reconciliation. Patient reports not taking his medication for over one month but is suppose to be on a ton. Most medication have not been filled since May and February of 2023. Patient say he was previously on lamictal and is suppose to be on it but there is no fill history a [facility], it is not an active medications. Will inform admitting provider. Palma Emerson, DeonnaD
[2023-10-03 20:50] LABS: Amphetamine Screen Urine Not Detected (Not Detect); Barbiturates, Urine Not Detected (Not Detect); Benzodiazepines Screen Urine Not Detected (Not Detect); Cannabinoid Screen Urine Not Detected (Not Detect); Cocaine Screen Urine POSITIVE (Not Detect); Fentanyl, urine POSITIVE (Not Detect); Opiate Screen Urine POSITIVE (Not Detect); Phencyclidine Screen Urine Not Detected (Not Detect)
[2023-10-03 21:20] VITALS: BP 154/75; PULSE 60; RESP 16; TEMP 37.5; O2SAT 98
[2023-10-03 21:48] VITALS: BP 151/74; PULSE 71; RESP 18; O2SAT 97
--- NOTE | 2023-10-04 01:26 | P.HPHOSP_ITS ---
History of Present Illness Date of Service: 10/03/23 Attending physician on admission: Diana Pressley Chief Complaint: Leg swelling Jason Yoo is a 63 years old man with past medical history significant for bipolar disorder, drug use (smokes cocaine), asthma, heroin use disorder (on methadone) hep C infection, hypertension and RA presents to the emergency department complaining of swelling to the left lower extremity associated with redness. He denied any associated pain. On July 2023 the patient was admitted to the hospital with diagnosis of osteomyelitis of the left 2nd toe and cellulitis undergoing an amputation of the 2nd toe by Dr. Shah from vascular surgery. Patient noted that this symptoms had been getting worse over the last 2 days. He denied any associated fever, chills or dizziness. He denied any cardiopulmonary, gastrointestinal genitourinary symptoms. Patient stated that he lives in the streets it has not been taking any of his medications. He also stated that he has not had had any follow-up after the surgery. He denies alcohol abuse. Smokes tobacco occasionally. In the ED, he was found to have stable vital signs. There is no fever reported. Blood workup did not show leukocytosis. There are no significant electrolyte imbalances and renal function is normal. LFTs are slightly elevated. Urine drug screen is positive for opiates, fentanyl and cocaine. Viral testing for COVID-19 and influenza are negative. Blood and wound cultures were obtained. ED tx: Zosyn 3.375 g IV x1, vancomycin 2 g IV x1, NS 1 L bolus. Review of Systems 2 Review of Systems: All 12 systems were reviewed and normal except as noted in HPI. [facility] Medical History Bipolar disorder Aneurysm of descending thoracic aorta Hepatitis C Rheumatoid arthritis Active substance abuse HTN (hypertension) Arthritis Glaucoma Neuropathy Asthma Bipolar disorder Surgical History No pertinent past surgical history Social History Household Members: None Housing: Homeless Do you presently have visiting nurse or other home services: No Alcohol intake: current Alcohol intake frequency: a few times a month Patient Tobacco Use Status: Current someday Tobacco user Tobacco use type: Cigarette Cigarette Packs Per Day: 2 Cigarettes Per Day: 3 Years Smoked: 2 Smoked in Last 30 Days: Yes e-Cigarette/Vaping Use: Currently Using Second Hand Smoke Exposure: Yes Use of substances other than those prescribed or required for medical reasons: Yes Substance Use Type: Heroin and Other Substance Use Type Other:: methadone - from street dealer Substance Use Frequency: Occasionally Advance Directives: No Advance Directives Information Provided: No Nutrition Risks: No Nutritional Risk Meds Allergies Allergy/AdvReac Type Severity Reaction Status Date / Time Penicillins [PENICILLINS] Allergy Unknown UNKNOWN Verified 08/12/23 06:58 risperidone [From RISPERDAL] Allergy Unknown UNKNOWN Verified 08/12/23 06:58 pregabalin [From Lyrica] Allergy Unknown Verified 10/03/23 17:25 From GEODON Allergy Unknown UNKNOWN Uncoded 08/12/23 06:58 Active Medications: Current Medications Acetaminophen (Acetaminophen 325 Mg Tablet) 975 mg PO Q6H PRN PRN Reason: Pain, Mild (Pain Scale 1-3) Heparin Sodium (Porcine) (Heparin Sodium,Porcine 5,000 Unit/Ml Vial) 5,000 unit SUBCUT Q12H [facility] Piperacillin Sod/Tazobactam (Sod 3.375 gm/ Sodium Chloride) 50 mls @ 100 mls/hr IV Q6H [facility] Ketorolac Tromethamine (Ketorolac Tromethamine 15 Mg/Ml Vial) 15 mg IVPUSH Q6H PRN PRN Reason: Pain, Moderate(Pain Scale 4-6) Sodium Chloride (0.9 % Sodium Chloride Flush 3 Ml Syringe) 3 ml IVFLUSH QSHIFT [facility] Home Medications Medication Instructions Recorded Confirmed Last Taken Type albuterol sulfate 90 mcg/actuation 1 inh inhalation DAILY PRN 08/09/23 10/03/23 1 Month Ago History aerosol inhaler Shortness Of Breath Or Wheezing ~09/02/23 amlodipine 10 mg tablet 10 mg PO DAILY 08/09/23 10/03/23 1 Month Ago History ~09/02/23 fluticasone 500 mcg-salmeterol 50 1 ea inhalation BID 08/09/23 10/03/23 1 Month Ago History mcg/dose blistr powdr for ~09/02/23 inhalation (Advair Diskus) gabapentin 600 mg tablet 600 mg PO TID 08/09/23 10/03/23 1 Month Ago History ~09/02/23 hydroxyzine HCl 50 mg tablet 50 mg PO TID 08/09/23 10/03/23 1 Month Ago History ~09/02/23 losartan 25 mg tablet 25 mg PO DAILY 08/09/23 10/03/23 1 Month Ago History ~09/02/23 montelukast 10 mg tablet 10 mg PO DAILY 08/09/23 10/03/23 1 Month Ago History ~09/02/23 quetiapine 25 mg tablet 25 mg PO BEDTIME 08/09/23 10/03/23 1 Month Ago History ~09/02/23 trazodone 50 mg tablet 50 mg PO BEDTIME 08/09/23 10/03/23 1 Month Ago History ~09/02/23 lamotrigine 200 mg tablet 200 mg PO BID 10/03/23 1 Month Ago History (Lamictal) ~09/02/23 Physical Exam 2 Vital Signs and Narrative: Vital Signs: Last Vital Signs Temp 99.5 F 10/03/23 21:20 Pulse 71 10/03/23 21:48 Resp 18 10/03/23 21:48 BP 151/74 H 10/03/23 21:48 Pulse Ox 97 10/03/23 21:48 O2 Del Method Room Air 10/03/23 21:48 BMI result Body Mass Index 22.2 Constitutional - Awake and Alert, No apparent distress HEENT - Normocephalic, atraumatic. Cardiovascular - S1S2, RRR, No edema Respiratory - Normal lung expansion, Normal respiratory effort, No respiratory distress, CTA bilaterally Gastrointestinal - NT / ND; +BS; No rebound or guarding Extremities - Left leg: Erythema to the mid to anterior aspect. Left foot: Surgical wound with dry yellowish discharge. Erythema and edema to the surrounding areas of of the wound anterior aspect. There is no tenderness. Please see ED notes for pictures. Skin - Warm/Dry Neurological - Alert & oriented x3, CN II-XII in tact, 5/5 strength BUE and BLE Psychological - Appropriate affect Results Labs 10/03/23 17:44 10/03/23 17:44 Labs: Laboratory Results - last 24 hr 10/03/23 10/03/23 10/03/23 17:44 17:45 19:33 MCV 93.2 MCH 30.7 MCHC 32.9 RDW 14.2 Plt Count 110 L MPV 10.2 Immature Gran % (Auto) 0.4 Neut % (Auto) 74.8 H Lymph % (Auto) 11.8 L [place] % (Auto) 9.9 Eos % (Auto) 2.7 Baso % (Auto) 0.4 Lymph # (Auto) 0.6 L [place] # (Auto) 0.5 Eos # (Auto) 0.1 Baso # (Auto) 0.0 Abs Immat Gran (auto) 0.02 Absolute Neuts (auto) 3.6 Absolute Nucleated RBC 0.000 Nucleated RBC % (auto) 0.0 Anion Gap 9 L Estim Creat Clear Calc 101.0 Estimated GFR > 60 Random Glucose 102 Lactic Acid 1.2 Calcium 8.8 Total Bilirubin 0.4 AST 61 H ALT 61 H Alkaline Phosphatase 67 Total Protein 7.1 Albumin 3.3 L Lipase 13 Urine Opiates Screen Urine Fentanyl Screen Ur Barbiturates Screen Ur Phencyclidine Scrn Ur Amphetamines Screen U Benzodiazepines Scrn Urine Cocaine Screen U Marijuana (THC) Screen COVID-19 (GAVI) Negative COVID-19 Clin Com See Note Influenza Type A (DEEPTI) Negative Influenza Type B (DEEPTI) Negative Influenza A & B Note See Note 10/03/23 20:35 MCV MCH MCHC RDW Plt Count MPV Immature Gran % (Auto) Neut % (Auto) Lymph % (Auto) [place] % (Auto) Eos % (Auto) Baso % (Auto) Lymph # (Auto) [place] # (Auto) Eos # (Auto) Baso # (Auto) Abs Immat Gran (auto) Absolute Neuts (auto) Absolute Nucleated RBC Nucleated RBC % (auto) Anion Gap Estim Creat Clear Calc Estimated GFR Random Glucose Lactic Acid Calcium Total Bilirubin AST ALT Alkaline Phosphatase Total Protein Albumin Lipase Urine Opiates Screen POSITIVE H Urine Fentanyl Screen POSITIVE H Ur Barbiturates Screen Not Detected Ur Phencyclidine Scrn Not Detected Ur Amphetamines Screen Not Detected U Benzodiazepines Scrn Not Detected Urine Cocaine Screen POSITIVE H U Marijuana (THC) Screen Not Detected COVID-19 (GAVI) COVID-19 Clin Com Influenza Type A (DEEPTI) Influenza Type B (DEEPTI) Influenza A & B Note Assessment and Plan (1) Cellulitis of foot: Status: Acute (2) Wound infection: Status: Acute Plan Jason Yoo is a 63 years old man admitted with: * s/p left 2nd toe amputation + associated cellulitis to the left leg/foot and infection of the surgical wound. Admit to hospitalist service. Continue empiric IV antibiotic therapy with Zosyn and vancomycin. Blood and wound cultures were obtained in the emergency department-we will follow results. Check CRP. Left foot MRI to assess for osteomyelitis. Vascular surgery consult. * Asthma. DuoNeb as needed. Montelukast bedtime. * Bipolar disorder. Patient stopped taking medications for this. * Essential hypertension. Restart treatment with losartan and amlodipine. * Rheumatoid arthritis. Pain meds as neded. * History hep C infection. * Illicit drug abuse. Social work consult. Patient has been taking methadone which he has been getting in the street. However, he was getting methadone from a methadone clinic. We will need to investigate the dose he has been taking and restart it. * Elevated transaminases, mild. Possible secondary to drug use and chronic hepatitis infection. We will continue to monitor. * Chronic anemia, likely nutritional + acute infection. Continue to monitor. * VTE prophylaxis: Heparin subQ Code status: Full Patient will need hospitalization for at least 2 midnight for left leg/foot cellulitis associated with surgical wound infection. Patient will need IV antibiotic therapy and evaluation by vascular surgery. Quality Stroke Does the patient have a stroke diagnosis?: No VTE Prior VTE?: No VTE Risk Level:: Medical - moderate - high VTE Device Contraindication: Treatment Not Indicated VTE Drug Contraindication: N/A - Med Ordered
[2023-10-04] MEDS: 0.9 % Sodium Chloride Flush 3 ML SYRINGE IVFLUSH ×4 (03:23→19:29)
[2023-10-04] MEDS: Piperacillin Sodium/Tazobactam 3.375 GM in 0.9 % Sodium Chloride 50 ML IV ×4 (03:26→19:28)
--- NOTE | 2023-10-04 03:26 | MHC.EDTECH ---
ALL PATIENT BELONGINGS ARE LOCKED INTO DECON
[2023-10-04 04:19] VITALS: BP 162/82; PULSE 56; RESP 18; TEMP 36.9; O2SAT 98
[2023-10-04] MEDS: Heparin Sodium,Porcine 5,000 UNIT/ML VIAL 5000 UNIT SUBCUT ×2 (04:54→16:10)
[2023-10-04 07:21] LABS: Hematocrit 30.4 % (42.0-52.0); Hemoglobin 9.9 g/dl (14.0-18.0); Mean Corpuscular HGB Conc 32.6 g/dl (31.0-36.0); Mean Corpuscular Volume 92.1 fL (80.0-98.0); Mean Platelet Volume 10.6 fL (9.4-12.4); Platelet Count 113 X10*3/uL (160-400); Red Cell Distribution Width 14.1 % (11.0-16.0); White Blood Count 4.3 X10*3/uL (4.8-10.8)
[2023-10-04 07:24] VITALS: BP 157/80; PULSE 53; RESP 16; TEMP 37.3; O2SAT 96
[2023-10-04 07:30] LABS: Alanine Aminotransferase 54 U/L (0-40); Albumin Level 2.8 g/dL (3.5-5.0); Alkaline Phosphatase 62 U/L (39-117); Anion Gap 10 (12-20); Aspartate Amino Transferase 54 U/L (5-37); Bilirubin Total 0.5 mg/dL (0.0-1.0); Blood Urea Nitrogen 8 mg/dL (9-16); Calcium 8.7 mg/dL (8.4-10.2); Carbon Dioxide 26 mmol/L (22-29); Chloride 104 mmol/L (96-108); Creatinine Clr Calc Pharmacy 97.4; Estimated Glomerular Filt Rate > 60; Glucose Random 106 mg/dL (60-115); Sodium 136 mmol/L (135-145); Total Protein 6.4 g/dL (6.5-8.0)
[2023-10-04] MEDS: amLODIPine Besylate 10 MG TABLET PO (08:06)
[2023-10-04] MEDS: Losartan Potassium 25 MG TABLET PO (08:06)
--- NOTE | 2023-10-04 08:19 | P.CONGS_ITS ---
History of Present Illness Consult details Consult date: 10/04/23 Requesting physician: Diana Pressley Narrative: 63-year-old male patient presenting to the emergency department due to redness and swelling of his left foot. He has a prior history of hypertension, rheumatoid arthritis, hepatitis-C and osteomyelitis involving his left 2nd toe. Underwent a left 2nd toe amputation by Dr. Shah on 08/12/2023. He tolerated the procedure well and was subsequently discharged home on 08/13/2023. Unfortunately he was lost to follow-up and has been living on the streets. He presents today with increased swelling and redness in the left foot is admitted to the hospitalist service for IV antibiotics. He reports that his sutures and rigoberto remain in place. He denies any foot pain at this time. Review of Systems 2 Review of Systems: Yes Unobtainable due to mental condition PMFSH Past Medical History Medical History Bipolar disorder Aneurysm of descending thoracic aorta Hepatitis C Rheumatoid arthritis Active substance abuse HTN (hypertension) Arthritis Glaucoma Neuropathy Asthma Bipolar disorder Surgical History Surgical History No pertinent past surgical history Social History Social History Household Members: None Housing: Apartment Do you presently have visiting nurse or other home services: No Alcohol intake: current Alcohol intake frequency: a few times a month Patient Tobacco Use Status: Current someday Tobacco user Tobacco use type: Cigarette Cigarette Packs Per Day: 2 Cigarettes Per Day: 3 Years Smoked: 2 Smoked in Last 30 Days: Yes e-Cigarette/Vaping Use: Currently Using Patient Interested in Nicotine Replacement: Yes Second Hand Smoke Exposure: Yes Use of substances other than those prescribed or required for medical reasons: Yes Substance Use Type: Crack/Cocaine and Heroin Substance Use Type Other:: methadone - from street dealer Substance Use Frequency: Daily Last Used Substance: Just Prior to Admission Currently Displaying Signs/Symptoms of Drug Intoxication Withdrawal: No Any prior treatment program specific to substance use: Yes Have you been hit, kicked, punched, or otherwise hurt by someone within the past year? If so, by whom?: No Do you feel safe in your current relationship?: No Current Relationship Is there a partner from a previous relationship who is making you feel unsafe now?: No Advance Directives: No Advance Directives Information Provided: No Do you have thoughts of harming others: None Do you have a plan to hurt others: No Plan Recently lost weight without trying: No Eating poorly because of decreased appetite: No Nutrition Risks: No Nutritional Risk Poor oral hygiene: No Meds Allergies Allergy/AdvReac Type Severity Reaction Status Date / Time Penicillins [PENICILLINS] Allergy Unknown UNKNOWN Verified 10/04/23 03:55 risperidone [From RISPERDAL] Allergy Unknown UNKNOWN Verified 10/04/23 03:55 pregabalin [From Lyrica] Allergy Unknown Verified 10/04/23 03:56 From GEODON Allergy Unknown UNKNOWN Uncoded 10/04/23 03:56 Active Medications: Current Medications Acetaminophen (Acetaminophen 325 Mg Tablet) 975 mg PO Q6H PRN PRN Reason: Pain, Mild (Pain Scale 1-3) Albuterol/Ipratropium (Albuterol/Iprat 2.5/0.5mg 3 Ml Ampul.Neb) 3 ml INHALE RQ4H WHILE AWAKE PRN PRN Reason: Shortness of Breath/Wheezing Amlodipine Besylate (Amlodipine Besylate 10 Mg Tablet) 10 mg PO DAILY [facility]; Protocol Last Admin: 10/04/23 08:06 Dose: 10 mg Heparin Sodium (Porcine) (Heparin Sodium,Porcine 5,000 Unit/Ml Vial) 5,000 unit SUBCUT Q12H [facility] Last Admin: 10/04/23 04:54 Dose: 5,000 unit Piperacillin Sod/Tazobactam (Sod 3.375 gm/ Sodium Chloride) 50 mls @ 100 mls/hr IV Q6H [facility] Last Admin: 10/04/23 08:11 Dose: 100 mls/hr Ketorolac Tromethamine (Ketorolac Tromethamine 15 Mg/Ml Vial) 15 mg IVPUSH Q6H PRN PRN Reason: Pain, Moderate(Pain Scale 4-6) Losartan Potassium (Losartan Potassium 25 Mg Tablet) 25 mg PO DAILY [facility]; Protocol Last Admin: 10/04/23 08:06 Dose: 25 mg Montelukast Sodium (Montelukast Sodium 10 Mg Tablet) 10 mg PO BEDTIME [facility] Sodium Chloride (0.9 % Sodium Chloride Flush 3 Ml Syringe) 3 ml IVFLUSH QSHIFT [facility] Last Admin: 10/04/23 08:06 Dose: 3 ml Home Medications Medication Instructions Recorded Confirmed Last Taken Type albuterol sulfate 90 mcg/actuation 1 inh inhalation DAILY PRN 08/09/23 10/03/23 1 Month Ago History aerosol inhaler Shortness Of Breath Or Wheezing ~09/02/23 amlodipine 10 mg tablet 10 mg PO DAILY 08/09/23 10/03/23 1 Month Ago History ~09/02/23 fluticasone 500 mcg-salmeterol 50 1 ea inhalation BID 08/09/23 10/03/23 1 Month Ago History mcg/dose blistr powdr for ~09/02/23 inhalation (Advair Diskus) gabapentin 600 mg tablet 600 mg PO TID 08/09/23 10/03/23 1 Month Ago History ~09/02/23 hydroxyzine HCl 50 mg tablet 50 mg PO TID 08/09/23 10/03/23 1 Month Ago History ~09/02/23 losartan 25 mg tablet 25 mg PO DAILY 08/09/23 10/03/23 1 Month Ago History ~09/02/23 montelukast 10 mg tablet 10 mg PO DAILY 08/09/23 10/03/23 1 Month Ago History ~09/02/23 quetiapine 25 mg tablet 25 mg PO BEDTIME 08/09/23 10/03/23 1 Month Ago History ~09/02/23 trazodone 50 mg tablet 50 mg PO BEDTIME 08/09/23 10/03/23 1 Month Ago History ~09/02/23 lamotrigine 200 mg tablet 200 mg PO BID 10/03/23 1 Month Ago History (Lamictal) ~09/02/23 Physical Exam 2 Vital Signs: Vital Signs: Last Vital Signs Temp 99.2 F 10/04/23 07:24 Pulse 53 10/04/23 07:24 Resp 16 10/04/23 07:24 BP 157/80 H 10/04/23 07:24 Pulse Ox 96 10/04/23 07:24 O2 Del Method Room Air 10/04/23 07:24 BMI result Body Mass Index 22.2 Const: Other: Somnolent General: patient obtunded and tired appearing Nutritional Appearance: a verage body habitus Orientation/consciousness: patient obtunded HEENT: Head: Yes normocephalic and Yes atraumatic Resp: Effort & Inspection: normal respiratory effort, no audible wheezes, no cough and no respiratory distress Skin: Other: Warm, dry, erythema left leg as noted below Neuro: General: patient obtunded Extrem: Other: Status post left 2nd toe amputation. Some crusted discharge noted on surface however wounds appear mostly healed. Two remaining sutures were removed and 1 staple removed. Wounds dressed with dry sterile dressing. Results Labs 10/04/23 06:49 10/04/23 06:49 Labs: Abnormal lab results 10/03/23 10/03/23 10/04/23 Range/Units 17:44 20:35 06:49 WBC 4.3 L (4.8-10.8) X10*3/uL RBC 3.23 L 3.30 L (4.60-5.80) X10*6/uL Hgb 9.9 L 9.9 L (14.0-18.0) g/dl Hct 30.1 L 30.4 L (42.0-52.0) % Plt Count 110 L 113 L (160-400) X10*3/uL Neut % (Auto) 74.8 H (45-73) % Lymph % (Auto) 11.8 L (20-40) % Lymph # (Auto) 0.6 L (1.2-4.9) X10*3/uL Anion Gap 9 L 10 L (12-20) BUN 8 L (9-16) mg/dL AST 61 H 54 H (5-37) U/L ALT 61 H 54 H (0-40) U/L Total Protein 6.4 L (6.5-8.0) g/dL Albumin 3.3 L 2.8 L (3.5-5.0) g/dL Urine Opiates Screen POSITIVE H (Not Detect) Urine Fentanyl Screen POSITIVE H (Not Detect) Urine Cocaine Screen POSITIVE H (Not Detect) Short CBC 10/03/23 10/04/23 Range/Units 17:44 06:49 WBC 4.8 4.3 L (4.8-10.8) X10*3/uL Hgb 9.9 L 9.9 L (14.0-18.0) g/dl Hct 30.1 L 30.4 L (42.0-52.0) % Plt Count 110 L 113 L (160-400) X10*3/uL BMP 10/03/23 10/04/23 17:44 06:49 Sodium 135 136 Potassium 4.2 4.0 Chloride 104 104 Carbon Dioxide 26 26 BUN 11 8 L Creatinine 0.82 0.85 Calcium 8.8 8.7 Liver Function 10/03/23 10/04/23 Range/Units 17:44 06:49 Total Bilirubin 0.4 0.5 (0.0-1.0) mg/dL AST 61 H 54 H (5-37) U/L ALT 61 H 54 H (0-40) U/L Alkaline Phosphatase 67 62 (39-117) U/L Albumin 3.3 L 2.8 L (3.5-5.0) g/dL All other labs normal. Assessment and Plan (1) Cellulitis of foot: Status: Acute (2) Wound infection: Status: Acute Plan 63-year-old male patient S/P left 2nd toe amputation in July 2023 returning with increased redness and swelling. He is admitted to the hospitalist service for IV antibiotics. Wounds were examined and remaining sutures/rigoberto removed. Recommend applying dry sterile dressing for protection. Antibiotics as per hospitalist team. Procedures Date of Service Date of Service: 10/04/23
--- NOTE | 2023-10-04 08:31 | HO.PM.IMPN ---
Subjective Subjective Date of Service: 10/04/23 Interval History: Seen in follow up for cellulitis LLE Interval history: Admitted overnight. Seen and examined. Denies pain LLE. No complaints Review of Systems Review of Systems: Yes all other systems are reviewed and are negative Physical Exam Vital Signs: Vital Signs: Last Vital Signs Temp 99.2 F 10/04/23 07:24 Pulse 53 10/04/23 07:24 Resp 16 10/04/23 07:24 BP 157/80 H 10/04/23 07:24 Pulse Ox 96 10/04/23 07:24 O2 Del Method Room Air 10/04/23 07:24 BMI result Body Mass Index 22.2 Constitutional - Awake and Alert, No apparent distress Eyes - PERRLA, EOMI Cardiovascular - S1S2, RRR, No edema Respiratory - Normal lung expansion, Normal respiratory effort, No respiratory distress, CTA bilaterally Gastrointestinal - NT / ND; +BS; No rebound or guarding Extremities - no calf tenderness bilaterally, no swelling. s/p amp left 2nd toe. Erythema, warmth, mild swelling anterior left lower leg extending foot to knee Skin - Warm/Dry Neurological - Alert & oriented x3 Psychological - Appropriate affect Objective Data Active Medications Acetaminophen (Acetaminophen 325 Mg Tablet) 975 mg PO Q6H PRN PRN Reason: Pain, Mild (Pain Scale 1-3) Albuterol/Ipratropium (Albuterol/Iprat 2.5/0.5mg 3 Ml Ampul.Neb) 3 ml INHALE RQ4H WHILE AWAKE PRN PRN Reason: Shortness of Breath/Wheezing Amlodipine Besylate (Amlodipine Besylate 10 Mg Tablet) 10 mg PO DAILY [facility]; Protocol Last Admin: 10/04/23 08:06 Dose: 10 mg Documented By: RIZWAN Heparin Sodium (Porcine) (Heparin Sodium,Porcine 5,000 Unit/Ml Vial) 5,000 unit SUBCUT Q12H [facility] Last Admin: 10/04/23 04:54 Dose: 5,000 unit Documented By: SHOSHANA Piperacillin Sod/Tazobactam (Sod 3.375 gm/ Sodium Chloride) 50 mls @ 100 mls/hr IV Q6H [facility] Last Admin: 10/04/23 08:11 Dose: 100 mls/hr Documented By: RIZWAN Comments: pharmacy approved infusion, no reactions after prior doses Ketorolac Tromethamine (Ketorolac Tromethamine 15 Mg/Ml Vial) 15 mg IVPUSH Q6H PRN PRN Reason: Pain, Moderate(Pain Scale 4-6) Losartan Potassium (Losartan Potassium 25 Mg Tablet) 25 mg PO DAILY [facility]; Protocol Last Admin: 10/04/23 08:06 Dose: 25 mg Documented By: RIZWAN Montelukast Sodium (Montelukast Sodium 10 Mg Tablet) 10 mg PO BEDTIME [facility] Sodium Chloride (0.9 % Sodium Chloride Flush 3 Ml Syringe) 3 ml IVFLUSH QSHIFT [facility] Last Admin: 10/04/23 08:06 Dose: 3 ml Documented By: RIZWAN Labs 10/04/23 06:49 10/04/23 06:49 Labs: Laboratory Results - last 24 hr 10/03/23 10/03/23 10/03/23 17:44 17:45 19:33 MCV 93.2 MCH 30.7 MCHC 32.9 RDW 14.2 Plt Count 110 L MPV 10.2 Immature Gran % (Auto) 0.4 Neut % (Auto) 74.8 H Lymph % (Auto) 11.8 L [place] % (Auto) 9.9 Eos % (Auto) 2.7 Baso % (Auto) 0.4 Lymph # (Auto) 0.6 L [place] # (Auto) 0.5 Eos # (Auto) 0.1 Baso # (Auto) 0.0 Abs Immat Gran (auto) 0.02 Absolute Neuts (auto) 3.6 Absolute Nucleated RBC 0.000 Nucleated RBC % (auto) 0.0 Anion Gap 9 L Estim Creat Clear Calc 101.0 Estimated GFR > 60 Random Glucose 102 Lactic Acid 1.2 Calcium 8.8 Total Bilirubin 0.4 AST 61 H ALT 61 H Alkaline Phosphatase 67 Total Protein 7.1 Albumin 3.3 L Lipase 13 Urine Opiates Screen Urine Fentanyl Screen Ur Barbiturates Screen Ur Phencyclidine Scrn Ur Amphetamines Screen U Benzodiazepines Scrn Urine Cocaine Screen U Marijuana (THC) Screen COVID-19 (GAVI) Negative COVID-19 Clin Com See Note Influenza Type A (DEEPTI) Negative Influenza Type B (DEEPTI) Negative Influenza A & B Note See Note 10/03/23 10/04/23 20:35 06:49 MCV 92.1 MCH 30.0 MCHC 32.6 RDW 14.1 Plt Count 113 L MPV 10.6 Immature Gran % (Auto) Neut % (Auto) Lymph % (Auto) [place] % (Auto) Eos % (Auto) Baso % (Auto) Lymph # (Auto) [place] # (Auto) Eos # (Auto) Baso # (Auto) Abs Immat Gran (auto) Absolute Neuts (auto) Absolute Nucleated RBC 0.000 Nucleated RBC % (auto) 0.0 Anion Gap 10 L Estim Creat Clear Calc 97.4 Estimated GFR > 60 Random Glucose 106 Lactic Acid Calcium 8.7 Total Bilirubin 0.5 AST 54 H ALT 54 H Alkaline Phosphatase 62 Total Protein 6.4 L Albumin 2.8 L Lipase Urine Opiates Screen POSITIVE H Urine Fentanyl Screen POSITIVE H Ur Barbiturates Screen Not Detected Ur Phencyclidine Scrn Not Detected Ur Amphetamines Screen Not Detected U Benzodiazepines Scrn Not Detected Urine Cocaine Screen POSITIVE H U Marijuana (THC) Screen Not Detected COVID-19 (GAVI) COVID-19 Clin Com Influenza Type A (DEEPTI) Influenza Type B (DEEPTI) Influenza A & B Note Assessment and Plan (1) Wound infection: Status: Acute (2) Cellulitis of foot: Status: Acute (3) Opiate use: Status: Acute Plan 63-year-old male with history of bipolar disorder, polysubstance abuse, history IV drug abuse, opiate dependence on methadone, history of hepatitis-C infection, asthma, hypertension, rheumatoid arthritis admitted for further management of cellulitis of the left lower leg and foot s/p left 2nd toe amputation with acute infection of surgical wound. # acute cellulitis left lower leg/foot s/p left 2nd toe amputation with infected surgical wound -IV vancomycin and Zosyn (initiated 10/03) -CRP, ESR pending. No leukocytosis/sirs criteria -MRI left foot w/wo contrast pending -Vascular consult pending -Wound care consult -Follow cultures # moderate persistent asthma -no acute exacerbation -Continue singulair, Advair, albuterol prn #HTN -bp reasonably controlled -Continue losartan, amlodipine #Polysubstance abuse/IVDA with opioid dependence -UTox positive for opiates, fentanyl, cocaine -addiction medicine consult -continue methadone -check HIV ab/ag and hep c viral load (hx hep c) #History hep c -unclear if treated -check viral load as above given ongoing IVDA #Transaminitis -likely due to above -plan as above #Acute on Chronic normocytic anemia -likely r/t acute illness/chronic disease -H/H above transfusion threshold #RA -stable -continue gabapentin #Mood disorder -continue home meds DVT prophylaxis-heparin Full code Patient requires ongoing inpatient stay for further management of cellulitis of the left leg/foot associated with surgical wound infection in IV drug abuser requiring IV antibiotics and expert evaluation Quality Stroke Does the patient have a stroke diagnosis?: No VTE Prior VTE?: No VTE Risk Level:: Medical - moderate - high VTE Device Contraindication: Treatment Not Indicated VTE Drug Contraindication: N/A - Med Ordered
--- NOTE | 2023-10-04 10:44 | MHC.CM.PN ---
Addendum entered by Margarette Fernandes 10/05/23 08:32: CONTACTS: SISTER: KYLE ANDERS CELL: [phone] HOME: [phone] MOTHER: RONNY ROGERS CELL: [phone] HOME: [phone] PCP: JAMA SIMON [phone] Addendum entered by Margarette Fernandes 10/04/23 16:15: CM SPOKE TO PTS SISTER/HCP, KYLE ANDERS [phone] OR [phone] SHE REPORTS THE PT MAY BE ABLE TO GO TO [place] AT MS WHERE THEIR MOTHER LIVES AND HAS SPACE FOR HIM SHE SAYS HE WOULD HAVE TO BE SOBER TO DO THIS SHE REPORTS SHE TOLD HIM SHE WOULD BE WILLING TO BE HIS [employer] WORKER TOO SHE SAYS IT WOULD BE EASIER FOR THEM IF HE WERE LOCAL RIGHT AFTER DC THOUGH CM EXPLAINED THE LOCAL OPTIONS WOULD BE FAMILY'S HOME, A SNF OR A SKILLED NURSING SHE REPORTS HE WOULD NOT WANT TO GO TO A SKILLED NURSING OR SNF DUE TO BAD EXPERIENCES IN THE PAST SHE WILL TALK TO HER ABOUT THE PT STAYING WITH THEM UPON DC SHE SAYS HE WILL NEED TO BE SET UP WITH METHADONE AGAIN BECAUSE HE DID NOT GO AFTER LAST DC Original Note: PT REPORTS HE IS CURRENTLY HOMELESS AND STAYS ON THE STREET HE SAYS HE IS NOT INTERESTED IN A SKILLED NURSING, HE IS WORKING ON FINDING A PLACE TO RENT HE REPORTS HE IS ALSO CONSIDERING GOING TO [place] WHERE HIS FAMILY LIVES HE REPORTS HE HAS NOT BEEN FOLLOWING UP WITH [facility] METHADONE TREATMENT SINCE DC IT IS UNCLEAR IF HE IS STILL ACTIVE THERE PT SAYS HE HAS A PCP, BUT DOES NOT HAVE THE NAME/INFO PT DECLINES TO COMPLETE A HCP DCP TBD: PT WILL NEED METHADONE TREATMENT ARRANGED IN WHATEVER AREA HE DECIDES TO DC TO HE WILL ALSO NEED TRANSPORTATION, 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
[2023-10-04] MEDS: methADONE HCl 20 MG/2 ML ORAL.CONC 30 MG PO (12:26)
[2023-10-04 12:33] LABS: Erythrocyte Sedimentation Rate 34 MM/HR (0-15)
[2023-10-04] MEDS: gadobutroL 10 ML VIAL IVPUSH (13:32)
[2023-10-04 15:39] VITALS: BP 139/75; PULSE 61; RESP 18; TEMP 37.6; O2SAT 98
--- NOTE | 2023-10-04 16:59 | PM.EVENT ---
Event Note Date of Service: 10/04/23 Event Note: BLood culture growing GPC in chains Start Vancomycin repeat blood cultures Time Spent With Patient Time: Total time managing care of this patient today ____ minutes.
[2023-10-04 19:17] VITALS: BP 144/76; PULSE 64; RESP 17; TEMP 37.1; O2SAT 96
[2023-10-04] MEDS: Montelukast Sodium 10 MG TABLET PO (19:29)
[2023-10-04] MEDS: vancomycin HCL 1,000 MG in 0.9 % Sodium Chloride 250 ML 270 MG IV (20:11)
[2023-10-04] MEDS: Acetaminophen 325 MG TABLET 975 MG PO (20:13)
[2023-10-04 23:27] VITALS: BP 152/75; PULSE 53; RESP 18; TEMP 37.1; O2SAT 97
[2023-10-05] MEDS: Piperacillin Sodium/Tazobactam 3.375 GM in 0.9 % Sodium Chloride 50 ML IV ×4 (01:25→19:47)
[2023-10-05 04:45] LABS: HIV Num 1 11.35 S/CO (0.00-0.99)
[2023-10-05] MEDS: Heparin Sodium,Porcine 5,000 UNIT/ML VIAL 5000 UNIT SUBCUT ×2 (05:09→16:26)
[2023-10-05 05:32] LABS: HIV Num 2 0.04 S/CO
[2023-10-05 05:33] LABS: HIV AB/AG Nonreactive (Nonreactive); HIV Num 3 0.05 S/CO
[2023-10-05 06:06] LABS: MANUAL DIFF FLAG NO
[2023-10-05 06:27] LABS: Anion Gap 10 (12-20); Blood Urea Nitrogen 10 mg/dL (9-16); Calcium 8.8 mg/dL (8.4-10.2); Carbon Dioxide 27 mmol/L (22-29); Chloride 104 mmol/L (96-108); Creatinine Clr Calc Pharmacy 94.1; Estimated Glomerular Filt Rate > 60; Glucose Random 109 mg/dL (60-115); Potassium 3.7 mmol/L (3.3-5.1); Sodium 137 mmol/L (135-145)
[2023-10-05 06:39] LABS: Basophils Percent Auto 0.4 % (0-2); Eosinophils Absolute Auto 0.3 X10*3/uL (0.0-0.4); Eosinophils Percent Auto 5.7 % (0-4); Hematocrit 35.1 % (42.0-52.0); Hemoglobin 11.7 g/dl (14.0-18.0); Imm Gran Abs Auto 0.03 X10*3/uL (0.00-0.03); Imm Gran Pct Auto 0.6 % (0.0-0.4); Lymphocytes Absolute Auto 0.7 X10*3/uL (1.2-4.9); Lymphocytes Percent Auto 14.3 % (20-40); Mean Corpuscular HGB Conc 33.3 g/dl (31.0-36.0); Mean Corpuscular Hemoglobin 30.2 pg (27.0-33.0); Mean Corpuscular Volume 90.5 fL (80.0-98.0); Mean Platelet Volume 9.8 fL (9.4-12.4); Monocytes Absolute Auto 0.5 X10*3/uL (0.1-1.2); Monocytes Percent Auto 9.4 % (2-11); Neutrophils Absolute Auto 3.6 x10*3/uL (2.0-8.3); Neutrophils Percent Auto 69.6 % (45-73); Platelet Count 132 X10*3/uL (160-400); Red Blood Count 3.88 X10*6/uL (4.60-5.80); White Blood Count 5.1 X10*3/uL (4.8-10.8)
[2023-10-05 07:41] VITALS: BP 167/87; PULSE 61; RESP 16; TEMP 36.2; O2SAT 97
[2023-10-05] MEDS: 0.9 % Sodium Chloride Flush 3 ML SYRINGE IVFLUSH ×3 (07:41→20:43)
[2023-10-05] MEDS: amLODIPine Besylate 10 MG TABLET PO (08:13)
[2023-10-05] MEDS: Losartan Potassium 25 MG TABLET PO ×2 (08:13→10:44)
[2023-10-05] MEDS: vancomycin HCL 1,000 MG in 0.9 % Sodium Chloride 250 ML 270 MG IV ×2 (08:14→20:37)
[2023-10-05] MEDS: methADONE HCl 20 MG/2 ML ORAL.CONC 30 MG PO (08:50)
--- NOTE | 2023-10-05 09:14 | PM.PNGS ---
Subjective Subjective Date of Service: 10/05/23 Interval history: Patient reports decreased foot pain today. No new complaints Physical Exam Vital Signs: Vital Signs: Last Vital Signs Temp 97.1 F 10/05/23 07:41 Pulse 61 10/05/23 07:41 Resp 16 10/05/23 07:41 BP 167/87 H 10/05/23 07:41 Pulse Ox 97 10/05/23 07:41 O2 Del Method Room Air 10/05/23 07:41 BMI result Body Mass Index 22.2 Const: Other: Awake and more alert today Resp: Other: Breathing comfortably on room air, no respiratory distress Extrem: Other: Dressings changed to left foot. Minimal serous discharge noted. Erythema improved. Objective Data Active Medications Acetaminophen (Acetaminophen 325 Mg Tablet) 975 mg PO Q6H PRN PRN Reason: Pain, Mild (Pain Scale 1-3) Last Admin: 10/04/23 20:13 Dose: 975 mg Documented By: RIZWANAILDebbie Albuterol/Ipratropium (Albuterol/Iprat 2.5/0.5mg 3 Ml Ampul.Neb) 3 ml INHALE RQ4H WHILE AWAKE PRN PRN Reason: Shortness of Breath/Wheezing Amlodipine Besylate (Amlodipine Besylate 10 Mg Tablet) 10 mg PO DAILY [facility]; Protocol Last Admin: 10/05/23 08:13 Dose: 10 mg Documented By: RIZWAN Heparin Sodium (Porcine) (Heparin Sodium,Porcine 5,000 Unit/Ml Vial) 5,000 unit SUBCUT Q12H [facility] Last Admin: 10/05/23 05:09 Dose: 5,000 unit Documented By: SHOSHANA Piperacillin Sod/Tazobactam (Sod 3.375 gm/ Sodium Chloride) 50 mls @ 100 mls/hr IV Q6H [facility] Last Infusion: 10/05/23 08:11 Dose: Infused Documented By: RIZWAN Vancomycin HCl 1,000 mg/ (Sodium Chloride) 270 mls @ 270 mls/hr IV Q12H [facility] Last Admin: 10/05/23 08:14 Dose: 270 mls/hr Documented By: RIZWAN Ketorolac Tromethamine (Ketorolac Tromethamine 15 Mg/Ml Vial) 15 mg IVPUSH Q6H PRN PRN Reason: Pain, Moderate(Pain Scale 4-6) Losartan Potassium (Losartan Potassium 25 Mg Tablet) 25 mg PO DAILY [facility]; Protocol Last Admin: 10/05/23 08:13 Dose: 25 mg Documented By: RIZWAN Methadone HCl (Methadone Hcl 20 Mg/2 Ml Oral.Conc) 30 mg PO DAILY [facility] Last Admin: 10/05/23 08:50 Dose: 30 mg Documented By: RIZWAN Montelukast Sodium (Montelukast Sodium 10 Mg Tablet) 10 mg PO BEDTIME [facility] Last Admin: 10/04/23 19:29 Dose: 10 mg Documented By: SHOSHANA Pharmacy Consult (Consult Rx Vancomycin Dosing) 1 each MISCELLANE DAILY PRN PRN Reason: Consult order Sodium Chloride (0.9 % Sodium Chloride Flush 3 Ml Syringe) 3 ml IVFLUSH QSHIFT [facility] Last Admin: 10/05/23 07:41 Dose: 3 ml Documented By: RIZWAN Labs 10/05/23 05:31 10/05/23 05:31 Labs: Laboratory Results - last 24 hr 10/04/23 10/04/23 10/05/23 06:49 11:28 05:31 MCV 90.5 MCH 30.2 MCHC 33.3 RDW 14.0 Plt Count 132 L MPV 9.8 Immature Gran % (Auto) 0.6 H Neut % (Auto) 69.6 Lymph % (Auto) 14.3 L [place] % (Auto) 9.4 Eos % (Auto) 5.7 H Baso % (Auto) 0.4 Lymph # (Auto) 0.7 L [place] # (Auto) 0.5 Eos # (Auto) 0.3 Baso # (Auto) 0.0 Abs Immat Gran (auto) 0.03 Absolute Neuts (auto) 3.6 Absolute Nucleated RBC 0.000 Nucleated RBC % (auto) 0.0 ESR 34 H Anion Gap 10 L Estim Creat Clear Calc 94.1 Estimated GFR > 60 Random Glucose 109 Calcium 8.8 HIV 1&2 Ab/P24 Ag 4thGn Nonreactive Microbiology Microbiology Results: Microbiology 10/03/23 18:18 Blood Culture - Preliminary Blood - Venous No growth after 24 hours. 10/03/23 17:44 Blood Culture - Preliminary Blood - Venous Prelim: GPC Gram Stain only 10/03/23 19:33 Gram Stain - Final Foot Left Routine Culture - Preliminary Culture in progress. Procedures Date of Service Date of Service: 10/05/23 Progress Note: A&P Assessment and plan (1) Cellulitis of foot: Status: Acute Plan 63-year-old male patient status post left 2nd toe amputation. Dressings changed today and overall wounds are clean with decreased erythema. Continued antibiotics per hospitalist team. Patient to follow-up with Dr. Shah as an outpatient. Please re-consult for any new concerns. Time Spent With Patient Time: Total time managing care of this patient today ____ minutes. Quality Stroke Does the patient have a stroke diagnosis?: No VTE Prior VTE?: No VTE Risk Level:: Medical - moderate - high VTE Device Contraindication: Treatment Not Indicated VTE Drug Contraindication: N/A - Med Ordered
--- NOTE | 2023-10-05 10:07 | P.PNIM_ITS ---
Subjective Subjective Date of Service: 10/05/23 Interval History: Seen in follow up for cellulitis LLE Interval history: feels better, no pain, no fever Physical Exam 2 Vital Signs: Vital Signs: Last Vital Signs Temp 97.1 F 10/05/23 07:41 Pulse 61 10/05/23 07:41 Resp 16 10/05/23 07:41 BP 167/87 H 10/05/23 07:41 Pulse Ox 97 10/05/23 07:41 O2 Del Method Room Air 10/05/23 07:41 BMI result Body Mass Index 22.2 Constitutional - Awake and Alert, No apparent distress, A and O x 3 Cardiovascular - S1S2, RRR, No edema Respiratory - Normal lung expansion, Normal respiratory effort, No respiratory distress, CTA bilaterally Gastrointestinal - NT / ND; +BS; No rebound or guarding Extremities - no calf tenderness bilaterally, no swelling. s/p amp left 2nd toe. Erythema, warmth, mild swelling anterior left lower leg extending foot to knee Skin - Warm/Dry--see pic Neurological -NF Psychological - Appropriate affect Extrem: Other: Dressings changed to left foot. Minimal serous discharge noted. Erythema improved. Objective Data Active Medications Acetaminophen (Acetaminophen 325 Mg Tablet) 975 mg PO Q6H PRN PRN Reason: Pain, Mild (Pain Scale 1-3) Last Admin: 10/04/23 20:13 Dose: 975 mg Documented By: SHOSHANA Albuterol/Ipratropium (Albuterol/Iprat 2.5/0.5mg 3 Ml Ampul.Neb) 3 ml INHALE RQ4H WHILE AWAKE PRN PRN Reason: Shortness of Breath/Wheezing Amlodipine Besylate (Amlodipine Besylate 10 Mg Tablet) 10 mg PO DAILY [facility]; Protocol Last Admin: 10/05/23 08:13 Dose: 10 mg Documented By: RIZWAN Heparin Sodium (Porcine) (Heparin Sodium,Porcine 5,000 Unit/Ml Vial) 5,000 unit SUBCUT Q12H [facility] Last Admin: 10/05/23 05:09 Dose: 5,000 unit Documented By: SHOSHANA Piperacillin Sod/Tazobactam (Sod 3.375 gm/ Sodium Chloride) 50 mls @ 100 mls/hr IV Q6H [facility] Last Infusion: 10/05/23 08:11 Dose: Infused Documented By: RIZWAN Vancomycin HCl 1,000 mg/ (Sodium Chloride) 270 mls @ 270 mls/hr IV Q12H [facility] Last Infusion: 10/05/23 09:18 Dose: Infused Documented By: RIZWAN Ketorolac Tromethamine (Ketorolac Tromethamine 15 Mg/Ml Vial) 15 mg IVPUSH Q6H PRN PRN Reason: Pain, Moderate(Pain Scale 4-6) Losartan Potassium (Losartan Potassium 25 Mg Tablet) 25 mg PO DAILY [facility]; Protocol Last Admin: 10/05/23 08:13 Dose: 25 mg Documented By: RIZWAN Methadone HCl (Methadone Hcl 20 Mg/2 Ml Oral.Conc) 30 mg PO DAILY [facility] Last Admin: 10/05/23 08:50 Dose: 30 mg Documented By: RIZWAN Montelukast Sodium (Montelukast Sodium 10 Mg Tablet) 10 mg PO BEDTIME [facility] Last Admin: 10/04/23 19:29 Dose: 10 mg Documented By: SHOSHANA Pharmacy Consult (Consult Rx Vancomycin Dosing) 1 each MISCELLANE DAILY PRN PRN Reason: Consult order Sodium Chloride (0.9 % Sodium Chloride Flush 3 Ml Syringe) 3 ml IVFLUSH QSHIFT [facility] Last Admin: 10/05/23 07:41 Dose: 3 ml Documented By: RIZWAN Labs 10/05/23 05:31 10/05/23 05:31 Labs: Laboratory Results - last 24 hr 10/04/23 10/04/23 10/05/23 06:49 11:28 05:31 MCV 90.5 MCH 30.2 MCHC 33.3 RDW 14.0 Plt Count 132 L MPV 9.8 Immature Gran % (Auto) 0.6 H Neut % (Auto) 69.6 Lymph % (Auto) 14.3 L [place] % (Auto) 9.4 Eos % (Auto) 5.7 H Baso % (Auto) 0.4 Lymph # (Auto) 0.7 L [place] # (Auto) 0.5 Eos # (Auto) 0.3 Baso # (Auto) 0.0 Abs Immat Gran (auto) 0.03 Absolute Neuts (auto) 3.6 Absolute Nucleated RBC 0.000 Nucleated RBC % (auto) 0.0 ESR 34 H Anion Gap 10 L Estim Creat Clear Calc 94.1 Estimated GFR > 60 Random Glucose 109 Calcium 8.8 HIV 1&2 Ab/P24 Ag 4thGn Nonreactive Microbiology Microbiology Results: Microbiology 10/03/23 17:44 Blood Culture - Preliminary Blood - Venous Staphylococcus species 10/03/23 18:18 Blood Culture - Preliminary Blood - Venous No growth after 24 hours. 10/03/23 19:33 Gram Stain - Final Foot Left Routine Culture - Preliminary Culture in progress. Assessment and Plan (1) Wound infection: Status: Acute (2) Cellulitis of foot: Status: Acute (3) Opiate use: Status: Acute Plan 63-year-old male with history of bipolar disorder, polysubstance abuse, history IV drug abuse, opiate dependence on methadone, history of hepatitis-C infection, asthma, hypertension, rheumatoid arthritis admitted for further management of cellulitis of the left lower leg and foot s/p left 2nd toe amputation with acute infection of surgical wound. # acute cellulitis left lower leg/foot s/p left 2nd toe amputation with infected surgical wound -IV vancomycin and Zosyn (initiated 10/03) -CRP, ESR pending. No leukocytosis/sirs criteria -MRI left 2nd dig osteo, and suspicious 3r dig osteo--see full report -Surgery consult--continue Abx -Wound care consult # 09/23 Staph Species bacteremia--continue IV Vanco, additional cultures pending -ID consult # moderate persistent asthma -no acute exacerbation -Continue singulair, Advair, albuterol prn #HTN--BP on high side -continue Norvasc 10/d -Increase losartan to 50 #Polysubstance abuse/IVDA with opioid dependence -UTox positive for opiates, fentanyl, cocaine -addiction medicine consult pending -continue methadone - HIV ab/ag neg and hep c viral load (hx hep c) pending #History hep c -unclear if treated -check viral load as above given ongoing IVDA #Transaminitis -likely due to above -plan as above #Acute on Chronic normocytic anemia -likely r/t acute illness/chronic disease -H/H above transfusion threshold #RA -stable -continue gabapentin #Mood disorder -continue home meds DVT prophylaxis-heparin Full code Patient requires ongoing inpatient stay for further management of cellulitis of the left leg/foot associated with surgical wound infection/OM, bacteremia oin IV drug abuser requiring IV antibiotics and expert evaluation Quality Stroke Does the patient have a stroke diagnosis?: No VTE Prior VTE?: No VTE Risk Level:: Medical - moderate - high VTE Device Contraindication: Treatment Not Indicated VTE Drug Contraindication: N/A - Med Ordered
--- NOTE | 2023-10-05 12:07 | P.PNADD_ITS ---
Subjective Subjective Date of Service: 10/05/23 Reason For Visit: Right leg/ foot cellulitis Interim History: Patient is a 63 year old male currently medically admitted with ?osteo, history of multiple chronic health issues including OUD. 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 Patient admitted yesterday, 10/04 and methadone 30mg given with positive effect. This morning patient seen in room 362 with patient portal concierge. Patient awake, alert and engaged in interview. 30mg this morning which he reports has been helpful. Appears restless and slightly anxious. He reports he has been using 2-3 bundles of heroin/fentanyl IN daily. Denies alcohol use. Occasional cocaine use. He was unable to make it to the methadone clinic following last admission here. He is unstably housed at this time and transportation is an issue--[place] in the cold. Last admission he was comfortable at 45mg and requested to stay at that dose. Today he is requesting dose increase as he is still experiencing mild withdrawal sx. Review of Systems Constitutional: Reports as per HPI, Reports body ache(s) and Reports malaise Mental Status Exam Mental Status Exam Patient Appearance: Appropriate Level of Consciousness: Awake, Appropriate and Alert Diagnostics Vital Signs (24Hr): Vital Signs - 24 hr 10/04/23 15:39 10/04/23 19:17 10/04/23 23:27 Temperature 99.7 F 98.8 F 98.7 F Pulse Rate 61 64 53 Respiratory Rate 18 17 18 Blood Pressure 139/75 144/76 H 152/75 H Pulse Oximetry 98 96 97 Oxygen Delivery Method Room Air Room Air Room Air 10/05/23 07:41 Temperature 97.1 F Pulse Rate 61 Respiratory Rate 16 Blood Pressure 167/87 H Pulse Oximetry 97 Oxygen Delivery Method Room Air BMI result Body Mass Index 22.2 Labs 10/05/23 05:31 10/05/23 05:31 Labs: Laboratory Results - last 48 hr 10/03/23 10/03/23 10/03/23 17:44 17:45 19:33 WBC 4.8 RBC 3.23 L Hgb 9.9 L Hct 30.1 L MCV 93.2 MCH 30.7 MCHC 32.9 RDW 14.2 Plt Count 110 L MPV 10.2 Immature Gran % (Auto) 0.4 Neut % (Auto) 74.8 H Lymph % (Auto) 11.8 L Crane % (Auto) 9.9 Eos % (Auto) 2.7 Baso % (Auto) 0.4 Lymph # (Auto) 0.6 L Crane # (Auto) 0.5 Eos # (Auto) 0.1 Baso # (Auto) 0.0 Abs Immat Gran (auto) 0.02 Absolute Neuts (auto) 3.6 Absolute Nucleated RBC 0.000 Nucleated RBC % (auto) 0.0 ESR Sodium 135 Potassium 4.2 Chloride 104 Carbon Dioxide 26 Anion Gap 9 L BUN 11 Creatinine 0.82 Estim Creat Clear Calc 101.0 Estimated GFR > 60 Random Glucose 102 Lactic Acid 1.2 Calcium 8.8 Total Bilirubin 0.4 AST 61 H ALT 61 H Alkaline Phosphatase 67 Total Protein 7.1 Albumin 3.3 L Lipase 13 Urine Opiates Screen Urine Fentanyl Screen Ur Barbiturates Screen Ur Phencyclidine Scrn Ur Amphetamines Screen U Benzodiazepines Scrn Urine Cocaine Screen U Marijuana (THC) Screen COVID-19 (GAVI) Negative COVID-19 Clin Com See Note HIV 1&2 Ab/P24 Ag 4thGn Influenza Type A (DEEPTI) Negative Influenza Type B (DEEPTI) Negative Influenza A & B Note See Note 10/03/23 10/04/23 10/04/23 20:35 06:49 11:28 WBC 4.3 L RBC 3.30 L Hgb 9.9 L Hct 30.4 L MCV 92.1 MCH 30.0 MCHC 32.6 RDW 14.1 Plt Count 113 L MPV 10.6 Immature Gran % (Auto) Neut % (Auto) Lymph % (Auto) Crane % (Auto) Eos % (Auto) Baso % (Auto) Lymph # (Auto) Crane # (Auto) Eos # (Auto) Baso # (Auto) Abs Immat Gran (auto) Absolute Neuts (auto) Absolute Nucleated RBC 0.000 Nucleated RBC % (auto) 0.0 ESR 34 H Sodium 136 Potassium 4.0 Chloride 104 Carbon Dioxide 26 Anion Gap 10 L BUN 8 L Creatinine 0.85 Estim Creat Clear Calc 97.4 Estimated GFR > 60 Random Glucose 106 Lactic Acid Calcium 8.7 Total Bilirubin 0.5 AST 54 H ALT 54 H Alkaline Phosphatase 62 Total Protein 6.4 L Albumin 2.8 L Lipase Urine Opiates Screen POSITIVE H Urine Fentanyl Screen POSITIVE H Ur Barbiturates Screen Not Detected Ur Phencyclidine Scrn Not Detected Ur Amphetamines Screen Not Detected U Benzodiazepines Scrn Not Detected Urine Cocaine Screen POSITIVE H U Marijuana (THC) Screen Not Detected COVID-19 (GAVI) COVID-19 Clin Com HIV 1&2 Ab/P24 Ag 4thGn Nonreactive Influenza Type A (DEEPTI) Influenza Type B (DEEPTI) Influenza A & B Note 10/05/23 05:31 WBC 5.1 RBC 3.88 L Hgb 11.7 L Hct 35.1 L MCV 90.5 MCH 30.2 MCHC 33.3 RDW 14.0 Plt Count 132 L MPV 9.8 Immature Gran % (Auto) 0.6 H Neut % (Auto) 69.6 Lymph % (Auto) 14.3 L Crane % (Auto) 9.4 Eos % (Auto) 5.7 H Baso % (Auto) 0.4 Lymph # (Auto) 0.7 L Crane # (Auto) 0.5 Eos # (Auto) 0.3 Baso # (Auto) 0.0 Abs Immat Gran (auto) 0.03 Absolute Neuts (auto) 3.6 Absolute Nucleated RBC 0.000 Nucleated RBC % (auto) 0.0 ESR Sodium 137 Potassium 3.7 Chloride 104 Carbon Dioxide 27 Anion Gap 10 L BUN 10 Creatinine 0.88 Estim Creat Clear Calc 94.1 Estimated GFR > 60 Random Glucose 109 Lactic Acid Calcium 8.8 Total Bilirubin AST ALT Alkaline Phosphatase Total Protein Albumin Lipase Urine Opiates Screen Urine Fentanyl Screen Ur Barbiturates Screen Ur Phencyclidine Scrn Ur Amphetamines Screen U Benzodiazepines Scrn Urine Cocaine Screen U Marijuana (THC) Screen COVID-19 (GAVI) COVID-19 Clin Com HIV 1&2 Ab/P24 Ag 4thGn Influenza Type A (DEEPTI) Influenza Type B (DEEPTI) Influenza A & B Note Imaging Radiology Impressions: ITS Impressions Foot MRI 10/04/23 13:37 IMPRESSION: 1. Postsurgical changes related to amputation distal to the level of the 2nd metatarsal head. Findings most compatible with a superficial ulceration with a sinus tract extending to the dorsal aspect of the 2nd metatarsal head with surrounding cellulitis and osteomyelitis of at least the distal half of the metatarsal. Mild edema crossing the 2nd tarsometatarsal joint of uncertain significance. This could reflect stress reaction or bone contusion. Osteomyelitis thought to be less likely but cannot be excluded given the aforementioned abnormalities. 2. Third Digit: Findings suspicious for osteomyelitis of the proximal phalanx and possibly the plantar aspect of the head of the 3rd metatarsal. 3. Marrow edema crossing the 3rd tarsometatarsal joint more likely reflecting stress reaction rather than osteomyelitis. 4. Abnormal signal in the cuboid and crossing the 4th tarsometatarsal joint of uncertain etiology and significance. This could reflect stress reaction or bone contusion. Osteomyelitis thought to be less likely. 5. Diffuse edema in the subcutaneous soft tissues. 6. 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 Medications Medications Current Medications Acetaminophen (Acetaminophen 325 Mg Tablet) 975 mg PO Q6H PRN PRN Reason: Pain, Mild (Pain Scale 1-3) Last Admin: 10/04/23 20:13 Dose: 975 mg Albuterol/Ipratropium (Albuterol/Iprat 2.5/0.5mg 3 Ml Ampul.Neb) 3 ml INHALE RQ4H WHILE AWAKE PRN PRN Reason: Shortness of Breath/Wheezing Amlodipine Besylate (Amlodipine Besylate 10 Mg Tablet) 10 mg PO DAILY [facility]; Protocol Last Admin: 10/05/23 08:13 Dose: 10 mg Heparin Sodium (Porcine) (Heparin Sodium,Porcine 5,000 Unit/Ml Vial) 5,000 unit SUBCUT Q12H [facility] Last Admin: 10/05/23 05:09 Dose: 5,000 unit Piperacillin Sod/Tazobactam (Sod 3.375 gm/ Sodium Chloride) 50 mls @ 100 mls/hr IV Q6H [facility] Last Infusion: 10/05/23 08:11 Dose: Infused Vancomycin HCl 1,000 mg/ (Sodium Chloride) 270 mls @ 270 mls/hr IV Q12H [facility] Last Infusion: 10/05/23 09:18 Dose: Infused Ketorolac Tromethamine (Ketorolac Tromethamine 15 Mg/Ml Vial) 15 mg IVPUSH Q6H PRN PRN Reason: Pain, Moderate(Pain Scale 4-6) Losartan Potassium (Losartan Potassium 50 Mg Tablet) 50 mg PO DAILY [facility]; Protocol Methadone HCl (Methadone Hcl 20 Mg/2 Ml Oral.Conc) 30 mg PO DAILY [facility] Last Admin: 10/05/23 08:50 Dose: 30 mg Montelukast Sodium (Montelukast Sodium 10 Mg Tablet) 10 mg PO BEDTIME [facility] Last Admin: 10/04/23 19:29 Dose: 10 mg Pharmacy Consult (Consult Rx Vancomycin Dosing) 1 each MISCELLANE DAILY PRN PRN Reason: Consult order Sodium Chloride (0.9 % Sodium Chloride Flush 3 Ml Syringe) [facility] Last Admin: 10/05/23 07:41 Dose: 3 ml Allergies Allergies Allergy/AdvReac Type Severity Reaction Status Date / Time Penicillins [PENICILLINS] Allergy Unknown UNKNOWN Verified 10/04/23 03:55 risperidone [From RISPERDAL] Allergy Unknown UNKNOWN Verified 10/04/23 03:55 pregabalin [From Lyrica] Allergy Unknown Verified 10/04/23 03:56 From GEODON Allergy Unknown UNKNOWN Uncoded 10/04/23 03:56 Assessment & Plan Assessment & Plan (1) Opioid use disorder: Status: Acute Code(s): F11.90 - Opioid use, unspecified, uncomplicated Assessment and Plan: * Increase dose to 45mg in am * One time 10mg dose today for total of 40mg * Will continue to follow Total time managing care of this patient today __35__ minutes.
[2023-10-05] MEDS: methADONE HCl 20 MG/2 ML ORAL.CONC 10 MG PO (12:37)
[2023-10-05 15:01] VITALS: BP 120/69; PULSE 70; RESP 16; TEMP 37.1; O2SAT 97
[2023-10-05] MEDS: Acetaminophen 325 MG TABLET 975 MG PO (16:25)
[2023-10-05 18:22] LABS: Vancomycin Random 11.4 mcg/mL (15-20)
[2023-10-05 19:22] VITALS: BP 145/78; PULSE 62; RESP 18; TEMP 36.5; O2SAT 98
[2023-10-05] MEDS: Montelukast Sodium 10 MG TABLET PO (20:38)
[2023-10-06] VITALS: BP 134/84; PULSE 56; RESP 16; TEMP 36.6; O2SAT 98
[2023-10-06] MEDS: Piperacillin Sodium/Tazobactam 3.375 GM in 0.9 % Sodium Chloride 50 ML IV ×4 (01:56→19:52)
[2023-10-06] MEDS: Heparin Sodium,Porcine 5,000 UNIT/ML VIAL 5000 UNIT SUBCUT ×2 (05:48→16:21)
[2023-10-06 07:10] VITALS: BP 135/77; PULSE 63; RESP 14; TEMP 36; O2SAT 97
--- NOTE | 2023-10-06 08:04 | P.PNIM_ITS ---
Subjective Subjective Date of Service: 10/07/23 Interval History: Seen in follow up for cellulitis LLE Interval history:No pain Physical Exam 2 Vital Signs: Vital Signs: Last Vital Signs Temp 96.8 F 10/06/23 07:10 Pulse 63 10/06/23 07:10 Resp 14 10/06/23 07:10 BP 135/77 10/06/23 07:10 Pulse Ox 97 10/06/23 07:10 O2 Del Method Room Air 10/06/23 07:10 BMI result Body Mass Index 22.2 Constitutional - Awake and Alert, No apparent distress, A and O x 3 Cardiovascular - S1S2, RRR, No edema Respiratory - Normal lung expansion, Normal respiratory effort, No respiratory distress, CTA bilaterally Gastrointestinal - NT / ND; +BS; No rebound or guarding Extremities - no calf tenderness bilaterally, no swelling. s/p amp left 2nd toe. Erythema, warmth, mild swelling anterior left lower leg extending foot to knee Skin - Warm/Dry--see pic Neurological -NF Psychological - Appropriate affect Extrem: Other: Dressings changed to left foot. Minimal serous discharge noted. Erythema improved. Objective Data Active Medications Acetaminophen (Acetaminophen 325 Mg Tablet) 975 mg PO Q6H PRN PRN Reason: Pain, Mild (Pain Scale 1-3) Last Admin: 10/05/23 16:25 Dose: 975 mg Documented By: RIZWAN Albuterol/Ipratropium (Albuterol/Iprat 2.5/0.5mg 3 Ml Ampul.Neb) 3 ml INHALE RQ4H WHILE AWAKE PRN PRN Reason: Shortness of Breath/Wheezing Amlodipine Besylate (Amlodipine Besylate 10 Mg Tablet) 10 mg PO DAILY [facility]; Protocol Last Admin: 10/05/23 08:13 Dose: 10 mg Documented By: RIZWAN Heparin Sodium (Porcine) (Heparin Sodium,Porcine 5,000 Unit/Ml Vial) 5,000 unit SUBCUT Q12H [facility] Last Admin: 10/06/23 05:48 Dose: 5,000 unit Documented By: ALBER Piperacillin Sod/Tazobactam (Sod 3.375 gm/ Sodium Chloride) 50 mls @ 100 mls/hr IV Q6H [facility] Last Admin: 10/06/23 07:37 Dose: 100 mls/hr Documented By: HO.GRAZIC Vancomycin HCl 1,000 mg/ (Sodium Chloride) 270 mls @ 270 mls/hr IV Q12H [facility] Last Infusion: 10/05/23 21:58 Dose: Infused Documented By: ALBER Ketorolac Tromethamine (Ketorolac Tromethamine 15 Mg/Ml Vial) 15 mg IVPUSH Q6H PRN PRN Reason: Pain, Moderate(Pain Scale 4-6) Losartan Potassium (Losartan Potassium 50 Mg Tablet) 50 mg PO DAILY [facility]; Protocol Methadone HCl (Methadone Hcl 20 Mg/2 Ml Oral.Conc) 45 mg PO DAILY [facility] Montelukast Sodium (Montelukast Sodium 10 Mg Tablet) 10 mg PO BEDTIME [facility] Last Admin: 10/05/23 20:38 Dose: 10 mg Documented By: ALBER Pharmacy Consult (Consult Rx Vancomycin Dosing) 1 each MISCELLANE DAILY PRN PRN Reason: Consult order Sodium Chloride (0.9 % Sodium Chloride Flush 3 Ml Syringe) 3 ml IVFLUSH QSHIFT [facility] Last Admin: 10/05/23 20:43 Dose: 3 ml Documented By: ALBER Labs 10/05/23 05:31 10/07/23 06:10 Labs: Laboratory Results - last 24 hr 10/05/23 18:00 Random Vancomycin 11.4 L Microbiology Microbiology Results: Microbiology 10/03/23 19:33 Gram Stain - Final Foot Left Routine Culture - Preliminary Staphylococcus aureus Proteus mirabilis Gram negative mely 10/03/23 18:18 Blood Culture - Preliminary Blood - Venous No growth after 48 hours. 10/03/23 17:44 Blood Culture - Preliminary Blood - Venous Staphylococcus species Assessment and Plan (1) Wound infection: Status: Acute (2) Cellulitis of foot: Status: Acute (3) Opiate use: Status: Acute Plan 63-year-old male with history of bipolar disorder, polysubstance abuse, history IV drug abuse, opiate dependence on methadone, history of hepatitis-C infection, asthma, hypertension, rheumatoid arthritis admitted for further management of cellulitis of the left lower leg and foot s/p left 2nd toe amputation with acute infection of surgical wound. # acute cellulitis left lower leg/foot s/p left 2nd toe amputation with infected surgical wound --MRI left 2nd dig osteo, and suspicious 3r dig osteo--see full report -wound culture: S aureus P mirabili M.I.C. RX M.I.C. RX --------- --- --------- --- Ampicillin <=2 S Cefazolin <=4 S Ceftriaxone <=0.25 S Clindamycin <=0.25 R Erythromycin >=8 R Gentamicin <=1 S Levofloxacin 0.25 S <=0.12 S Oxacillin 0.5 S Penicillin-G 0.06 S Tetracycline <=1 S Trimethoprim/Sulfamethoxazole <=10 S <=20 S -IV vancomycin and Zosyn (initiated 10/03) -ID consult -may need termite treater Abx # / Staph Species bacteremia--continue IV Vanco, additional cultures pending -ID consult # moderate persistent asthma, no exacerbaton -Continue singulair, Advair, albuterol prn #HTN--BP controlled -continue Norvasc 10/d - losartan to 50/d #Polysubstance abuse/IVDA with opioid dependence -UTox positive for opiates, fentanyl, cocaine -addiction medicine consult pending -continue methadone - HIV ab/ag neg and hep c viral load (hx hep c) pending #History hep c -unclear if treated -check viral load as above given ongoing IVDA #Transaminitis -likely due to above -plan as above #Acute on Chronic normocytic anemia -likely r/t acute illness/chronic disease -H/H above transfusion threshold #RA -stable -continue gabapentin #Mood disorder -continue home meds DVT prophylaxis-heparin Full code Patient requires ongoing inpatient stay for further management of cellulitis of the left leg/foot associated with surgical wound infection/OM, bacteremia oin IV drug abuser requiring IV antibiotics and expert evaluation Quality Stroke Does the patient have a stroke diagnosis?: No VTE Prior VTE?: No VTE Risk Level:: Medical - moderate - high VTE Device Contraindication: Treatment Not Indicated VTE Drug Contraindication: N/A - Med Ordered
[2023-10-06] MEDS: amLODIPine Besylate 10 MG TABLET PO (08:15)
[2023-10-06] MEDS: Losartan Potassium 50 MG TABLET PO (08:16)
[2023-10-06] MEDS: methADONE HCl 20 MG/2 ML ORAL.CONC 45 MG PO (08:16)
[2023-10-06] MEDS: vancomycin HCL 1,000 MG in 0.9 % Sodium Chloride 250 ML 270 MG IV ×2 (08:18→20:46)
[2023-10-06] MEDS: 0.9 % Sodium Chloride Flush 3 ML SYRINGE IVFLUSH ×3 (08:21→23:10)
--- NOTE | 2023-10-06 12:41 | MHC.CM.PN ---
EMR REVIEWED AND PER MD ROUNDS, PT WILL NEED LT IV ABT RX. WILL NEED PICC PLACED AND SNF REFERRALS SENT. PT IS AGREEABLE TO [facility] IN [place]. PT WILL NEED GUEST DOSING SET UP AT [facility] IN [place]. RECOVERY NURSE OLIVIA NOTIFIED. CM WILL CONTINUE TO FOLLOW FOR ANY CHANGE IN PLAN.
[2023-10-06 13:28] LABS: Creatinine Clr Calc Pharmacy 95.2; Estimated Glomerular Filt Rate > 60
--- NOTE | 2023-10-06 13:38 | MHC.RECOVRN ---
Pts referral sent to [facility].
--- NOTE | 2023-10-06 14:06 | MHC.RECOVRN ---
Met with pt to discuss [facility], pt verbalizes understanding. Pt plans to stay with his mother in [place] after dc from [facility]. Plan for pt to direct admit to [facility]. Awaiting confirmation.
[2023-10-06 15:09] VITALS: BP 136/78; PULSE 62; RESP 18; TEMP 36.4; O2SAT 97
[2023-10-06 18:18] LABS: CRP High Sensitivity >10.0 mg/L
[2023-10-06] MEDS: Montelukast Sodium 10 MG TABLET PO (20:46)
[2023-10-06] MEDS: Ketorolac Tromethamine 15 MG/ML VIAL IVPUSH (23:10)
[2023-10-06 23:35] VITALS: BP 141/76; PULSE 56; RESP 18; TEMP 36.8; O2SAT 98
--- NOTE | 2023-10-07 00:45 | P.CNID_ITS ---
History of Present Illness Data of Consult Service Date: 10/06/23 Requesting physician: Kurtis Lynn Primary Care Provider: Pushpa Alonzo MD [facility] Reason for consult: left foot infection He presents with left foot redness,worse last few days. He has proximal plantar head third metatarsal OM condern. He has wound MSSA,proteus and gram negative mely. He had amputation second toe in past He has listed PCN allergy but is tolerating Pip/tazo Review of Systems 2 Review of Systems: Yes all other systems are reviewed and are negative PMFSH Past Medical History Medical History Bipolar disorder Aneurysm of descending thoracic aorta Hepatitis C Rheumatoid arthritis Active substance abuse HTN (hypertension) Arthritis Glaucoma Neuropathy Asthma Bipolar disorder Family History Family history: reviewed and not pertinent Surgical History Surgical History No pertinent past surgical history Social History Social History Household Members: None Housing: Apartment Do you presently have visiting nurse or other home services: No Alcohol intake: current Alcohol intake frequency: a few times a month Patient Tobacco Use Status: Current someday Tobacco user Tobacco use type: Cigarette Cigarette Packs Per Day: 2 Cigarettes Per Day: 3 Years Smoked: 2 e-Cigarette/Vaping Use: Currently Using Second Hand Smoke Exposure: Yes Substance Use Type: Crack/Cocaine and Heroin service: No Meds Allergies Allergy/AdvReac Type Severity Reaction Status Date / Time Penicillins [PENICILLINS] Allergy Unknown UNKNOWN Verified 10/04/23 03:55 risperidone [From RISPERDAL] Allergy Unknown UNKNOWN Verified 10/04/23 03:55 pregabalin [From Lyrica] Allergy Unknown Verified 10/04/23 03:56 From GEODON Allergy Unknown UNKNOWN Uncoded 10/04/23 03:56 Active Medications: Current Medications Acetaminophen (Acetaminophen 325 Mg Tablet) 975 mg PO Q6H PRN PRN Reason: Pain, Mild (Pain Scale 1-3) Last Admin: 10/05/23 16:25 Dose: 975 mg Albuterol/Ipratropium (Albuterol/Iprat 2.5/0.5mg 3 Ml Ampul.Neb) 3 ml INHALE RQ4H WHILE AWAKE PRN PRN Reason: Shortness of Breath/Wheezing Amlodipine Besylate (Amlodipine Besylate 10 Mg Tablet) 10 mg PO DAILY [facility]; Protocol Last Admin: 10/06/23 08:15 Dose: 10 mg Heparin Sodium (Porcine) (Heparin Sodium,Porcine 5,000 Unit/Ml Vial) 5,000 unit SUBCUT Q12H [facility] Last Admin: 10/06/23 16:21 Dose: 5,000 unit Piperacillin Sod/Tazobactam (Sod 3.375 gm/ Sodium Chloride) 50 mls @ 100 mls/hr IV Q6H [facility] Last Infusion: 10/06/23 20:38 Dose: Infused Vancomycin HCl 1,000 mg/ (Sodium Chloride) 270 mls @ 270 mls/hr IV Q12H [facility] Last Infusion: 10/06/23 21:58 Dose: Infused Ketorolac Tromethamine (Ketorolac Tromethamine 15 Mg/Ml Vial) 15 mg IVPUSH Q6H PRN PRN Reason: Pain, Moderate(Pain Scale 4-6) Last Admin: 10/06/23 23:10 Dose: 15 mg Losartan Potassium (Losartan Potassium 50 Mg Tablet) 50 mg PO DAILY [facility]; Protocol Last Admin: 10/06/23 08:16 Dose: 50 mg Methadone HCl (Methadone Hcl 20 Mg/2 Ml Oral.Conc) 45 mg PO DAILY [facility] Last Admin: 10/06/23 08:16 Dose: 45 mg Montelukast Sodium (Montelukast Sodium 10 Mg Tablet) 10 mg PO BEDTIME [facility] Last Admin: 10/06/23 20:46 Dose: 10 mg Pharmacy Consult (Consult Rx Vancomycin Dosing) 1 each MISCELLANE DAILY PRN PRN Reason: Consult order Sodium Chloride (0.9 % Sodium Chloride Flush 3 Ml Syringe) 3 ml IVFLUSH QSHIFT [facility] Last Admin: 10/06/23 23:10 Dose: 3 ml Home Medications Medication Instructions Recorded Confirmed Last Taken Type albuterol sulfate 90 mcg/actuation 1 inh inhalation DAILY PRN 08/09/23 10/03/23 1 Month Ago History aerosol inhaler Shortness Of Breath Or Wheezing ~09/02/23 amlodipine 10 mg tablet 10 mg PO DAILY 08/09/23 10/03/23 1 Month Ago History ~09/02/23 fluticasone 500 mcg-salmeterol 50 1 ea inhalation BID 08/09/23 10/03/23 1 Month Ago History mcg/dose blistr powdr for ~09/02/23 inhalation (Advair Diskus) gabapentin 600 mg tablet 600 mg PO TID 08/09/23 10/03/23 1 Month Ago History ~09/02/23 hydroxyzine HCl 50 mg tablet 50 mg PO TID 08/09/23 10/03/23 1 Month Ago History ~09/02/23 losartan 25 mg tablet 25 mg PO DAILY 08/09/23 10/03/23 1 Month Ago History ~09/02/23 montelukast 10 mg tablet 10 mg PO DAILY 08/09/23 10/03/23 1 Month Ago History ~09/02/23 quetiapine 25 mg tablet 25 mg PO BEDTIME 08/09/23 10/03/23 1 Month Ago History ~09/02/23 trazodone 50 mg tablet 50 mg PO BEDTIME 08/09/23 10/03/23 1 Month Ago History ~09/02/23 Physical Exam 2 Vital Signs: Vital Signs: Last Vital Signs Temp 98.3 F 10/06/23 23:35 Pulse 56 10/06/23 23:35 Resp 18 10/06/23 23:35 BP 141/76 H 10/06/23 23:35 Pulse Ox 98 10/06/23 23:35 O2 Del Method Room Air 10/06/23 23:35 BMI result Body Mass Index 22.2 Const: General: cooperative HEENT: Head: Yes normal to inspection Face and sinus: Yes normal facial exam Mouth: Normal oral and palatal mucosa present Teeth and gingiva: d entition normal Eyes: General: appearance normal, both eyes and all related structures P upils: Equal, round and reactive pupils present Resp: Effort & Inspection: normal respiratory effort Cardio: Rate: regular rate Rhythm: regular rhythm GI: Palpation (GI): Soft to palpation and nontender : General: Yes no CVA tenderness Back/Spine/Pelvis: Back: no CVA tenderness Skin: General skin exam: no rashes or lesions noted Neuro: General: moves all extremities Cranial nerves: Yes Equal, round and reactive pupils present Extrem: Other: left foot same erythema at amputation site, no spreading cellultis. Psych: Appearance: grossly normal Results Labs 10/05/23 05:31 10/06/23 12:56 Labs: BMP 10/06/23 12:56 Creatinine 0.87 Microbiology Microbiology Results: Microbiology 10/03/23 17:44 Blood - Venous Blood Culture - Final Staphylococcus aureus 10/05/23 05:31 Blood - Venous Blood Culture - Preliminary No growth after 24 hours. 10/05/23 05:40 Blood - Venous Blood Culture - Preliminary No growth after 24 hours. 10/03/23 19:33 Foot Left Gram Stain - Final 10/03/23 19:33 Foot Left Routine Culture - Preliminary Staphylococcus aureus Proteus mirabilis Gram negative mely 10/03/23 18:18 Blood - Venous Blood Culture - Preliminary No growth after 48 hours. Assessment and Plan (1) Wound infection: Status: Acute Probably OM Ertapenem in facility for six weeks likely (2) Cellulitis of foot: Status: Acute
[2023-10-07] MEDS: Piperacillin Sodium/Tazobactam 3.375 GM in 0.9 % Sodium Chloride 50 ML IV ×4 (01:31→21:23)
[2023-10-07] MEDS: Heparin Sodium,Porcine 5,000 UNIT/ML VIAL 5000 UNIT SUBCUT ×2 (04:04→17:09)
--- NOTE | 2023-10-07 07:00 | CA_ITS ---
Transthoracic Echocardiogram Patient (Last, First, Middle): Jason Yoo, Gender: Male Date of : 1960 Age: 63 Procedure Date: 10/07/2023 Procedure Type: Transthoracic Echocardiogram Location: S3E Height: 187.96 cm Weight: 78.47 kg BSA: 2.04 m2 Heart Rate: bpm BP: 168 / 87 mmHg Telegraph Dispatcher: Referring MD: Kurtis Lynn MD Symptoms: bacteremia Study Quality: Good ECG Rhythm: Sinus Conclusions: - The left ventricular systolic function is hyperdynamic. The calculated ejection fraction is 71% by biplane method. - The left atrium is moderately dilated. - The mitral valve appears myxomatous. Moderate posterior mitral leaflet prolapse. Possible partial flail leaflet. Mild-to moderate mitral regurgitation. - No obvious valvular vegetations. - There is mild dilatation of the ascending aorta measuring 3.80 cm. Findings Left Ventricle Normal left ventricular cavity size. There is mildly increased left ventricular wall thickness. The left ventricular systolic function is hyperdynamic. The calculated ejection fraction is 71% by biplane method. There is no evidence of regional wall motion abnormalities. Diastolic function is normal for age. Right Ventricle Mildly increased right ventricular cavity size. There is normal right ventricular systolic function. Atria The left atrium is moderately dilated. The right atrium is normal in size. Aortic Valve There is a normal trileaflet aortic valve. There is mild calcification of the aortic valve. There is no aortic valve stenosis. There is no aortic valve regurgitation. Mitral Valve The mitral valve appears myxomatous. There is mild mitral annular calcification. The mitral regurgitation jet is directed anteriorly. There is no mitral valve stenosis. Moderate posterior mitral leaflet prolapse. Possible partial flail leaflet. [id number] mitral regurgitation. Pulmonic Valve The pulmonic valve is likely normal. Tricuspid Valve There is trace tricuspid valve regurgitation. There is no evidence of pulmonary hypertension. Great Vessels There is mild dilatation of the ascending aorta measuring 3.80 cm. Venous The inferior vena cava is normal in size and collapses greater than 50% with inspiration. Prior Study Comparison No prior study available for comparison. Recommendations, Care & Conclusions Consider a OLIVER if clinically appropriate. Measurements 2D Linear Measurements IVSd: 1.23 0.6-0.9/0.6-1.0 cm LVIDd: 4.92 3.9-5.3/4.2-5.9 cm LVIDd Index: 2.41 2.4-3.2/2.2-3.1 cm/m2 LVIDs: 2.91 2.0-3.6 cm LVPWd: 1.26 0.7-1.1 cm Ao Root: 4.10 2.1-3.5 cm LA Diam: 4.00 2.7-3.8/3.0-4.0 cm LAIDs Index: 1.96 1.5-2.3 cm/m2 LV Mass: 299.28 67-162/88-224 g LV Mass Index: 146.71 43-95/49-115 g/m2 LVOT Diam: 2.20 3.0+(-)1.3 cm 2D Systolic Function EF 4C: 69.80 >55% EF 2C: 71.40 >55% EF BiP: 70.60 >55% Mitral Valve MV Pk E: 0.71 MV PK A: 0.80 MV Decel Time: 468.00 E/A: 0.90 E'Lateral: 10.40 E'Medial: 7.72 E/E' Med: 9.20 E/E' Lat: 6.80 PHT: 137.00 MVA PHT: 1.61 Decel [place]: 1.52 MR VTI: 1.84 Aortic Valve AoV Pk Scottie: 2.16 AoV Mn Scottie: 1.60 AoV VTI: 0.48 AoV Pk Grad: 19.00 Aov Mn Grad: 12.00 TYSON Cont.VTI: 2.82 LVOT LVOT Pk Scottie: 1.57 LVOT Mn Scottie: 1.15 LVOT VTI: 0.36 LVOT Pk Grad: 10.00 LVOT Mn Grad: 6.00 LVOT Diam: 2.20 LVOT Area: 3.80 Diastolic Function MV Pk E: 0.71 MV Pk A: 0.80 E/A: 0.90 E'Medial: 7.72 E/E' Med: 9.20 E' Laterial: 10.40 E/E' Lat: 6.80 Right Ventricle TAPSE (mm): 36.00 TVS' Scottie: 18.00 Tricuspid Valve TR Pk Scottie: 2.77 TR Pk Grad: 31.00 RA Press: 3.00 RVSP: 34.00 Great Vessels Aorta Ao Root-2D: 4.10 2.0-3.7 cm Ao Asc: 3.80 2.1-3.4 cm Pulmonary Valve PV Pk Scottie: 0.99 Peak PV Grad: 4.00 Updated in Other Vendor System with Status of Final Pavan Tripathi MD electronically signed on 10/07/2023 3:50:36 PM with status of Final
[2023-10-07] MEDS: 0.9 % Sodium Chloride Flush 3 ML SYRINGE IVFLUSH ×3 (07:17→21:22)
[2023-10-07 07:33] VITALS: BP 168/87; PULSE 57; RESP 16; TEMP 36.4; O2SAT 97
[2023-10-07 07:45] LABS: Vancomycin Random 13.8 mcg/mL (15-20)
[2023-10-07 07:46] LABS: Creatinine Clr Calc Pharmacy 106.1; Estimated Glomerular Filt Rate > 60
--- NOTE | 2023-10-07 07:56 | HE.PHANOTE ---
VANCO DOSE ADJUSTMENT BASED ON TROUGH OF 13.8 DOSE CONTINUED AT 1000 Q 12. NEXT LEVEL AT 1800 ON 10/08
[2023-10-07] MEDS: vancomycin HCL 1,000 MG in 0.9 % Sodium Chloride 250 ML 270 MG IV ×2 (08:00→21:23)
[2023-10-07] MEDS: amLODIPine Besylate 10 MG TABLET PO (08:02)
[2023-10-07] MEDS: Losartan Potassium 50 MG TABLET PO (08:02)
[2023-10-07] MEDS: methADONE HCl 20 MG/2 ML ORAL.CONC 45 MG PO (08:03)
--- NOTE | 2023-10-07 08:50 | MHC.RECOVRN ---
[facility] currently reviewing patients referral. Once pt is discharged, [facility] will need updated methadone day by day dosing history.
--- NOTE | 2023-10-07 09:41 | P.PNIM_ITS ---
Subjective Subjective Date of Service: 10/07/23 Interval History: f/u OM, bacteremia no new issues Physical Exam 2 Vital Signs: Vital Signs: Last Vital Signs Temp 97.5 F 10/07/23 07:33 Pulse 57 10/07/23 07:33 Resp 16 10/07/23 07:33 BP 168/87 H 10/07/23 07:33 Pulse Ox 97 10/07/23 07:33 O2 Del Method Room Air 10/07/23 07:33 BMI result Body Mass Index 22.2 Constitutional - Awake and Alert, No apparent distress, A and O x 3 Cardiovascular - S1S2, RRR, No edema Respiratory - Normal lung expansion, Normal respiratory effort, No respiratory distress, CTA bilaterally Gastrointestinal - NT / ND; +BS; No rebound or guarding Extremities - no calf tenderness bilaterally, no swelling. s/p amp left 2nd toe. Erythema, warmth, mild swelling anterior left lower leg extending foot to knee Skin - Warm/Dry--see pic essentially unchanged Neurological -NF Psychological - Appropriate affect Extrem: Other: Dressings changed to left foot. Minimal serous discharge noted. Erythema improved. Objective Data Active Medications Acetaminophen (Acetaminophen 325 Mg Tablet) 975 mg PO Q6H PRN PRN Reason: Pain, Mild (Pain Scale 1-3) Last Admin: 10/05/23 16:25 Dose: 975 mg Documented By: RIZWAN Albuterol/Ipratropium (Albuterol/Iprat 2.5/0.5mg 3 Ml Ampul.Neb) 3 ml INHALE RQ4H WHILE AWAKE PRN PRN Reason: Shortness of Breath/Wheezing Amlodipine Besylate (Amlodipine Besylate 10 Mg Tablet) 10 mg PO DAILY [facility]; Protocol Last Admin: 10/07/23 08:02 Dose: 10 mg Documented By: JUAN Heparin Sodium (Porcine) (Heparin Sodium,Porcine 5,000 Unit/Ml Vial) 5,000 unit SUBCUT Q12H [facility] Last Admin: 10/07/23 04:04 Dose: 5,000 unit Documented By: MARKUS Piperacillin Sod/Tazobactam (Sod 3.375 gm/ Sodium Chloride) 50 mls @ 100 mls/hr IV Q6H [facility] Last Infusion: 10/07/23 07:47 Dose: Infused Documented By: JUAN Vancomycin HCl 1,000 mg/ (Sodium Chloride) 270 mls @ 270 mls/hr IV Q12H [facility] Last Infusion: 10/07/23 09:02 Dose: Infused Documented By: JUAN Ketorolac Tromethamine (Ketorolac Tromethamine 15 Mg/Ml Vial) 15 mg IVPUSH Q6H PRN PRN Reason: Pain, Moderate(Pain Scale 4-6) Last Admin: 10/06/23 23:10 Dose: 15 mg Documented By: MARKUS Losartan Potassium (Losartan Potassium 50 Mg Tablet) 50 mg PO DAILY [facility]; Protocol Last Admin: 10/07/23 08:02 Dose: 50 mg Documented By: JUAN Methadone HCl (Methadone Hcl 20 Mg/2 Ml Oral.Conc) 45 mg PO DAILY [facility] Last Admin: 10/07/23 08:03 Dose: 45 mg Documented By: JUAN Montelukast Sodium (Montelukast Sodium 10 Mg Tablet) 10 mg PO BEDTIME [facility] Last Admin: 10/06/23 20:46 Dose: 10 mg Documented By: KAMINI Pharmacy Consult (Consult Rx Vancomycin Dosing) 1 each MISCELLANE DAILY PRN PRN Reason: Consult order Sodium Chloride (0.9 % Sodium Chloride Flush 3 Ml Syringe) 3 ml IVFLUSH QSHIFT [facility] Last Admin: 10/07/23 07:17 Dose: 3 ml Documented By: JUAN Labs 10/05/23 05:31 10/07/23 06:10 Labs: Laboratory Results - last 24 hr 10/04/23 10/06/23 10/07/23 06:49 12:56 06:10 Hold Purple Top SEE NOTE Estim Creat Clear Calc 95.2 106.1 Estimated GFR > 60 > 60 C-React Prot High Sens >10.0 H Random Vancomycin 13.8 L Microbiology Microbiology Results: Microbiology 10/03/23 19:33 Gram Stain - Final Foot Left Routine Culture - Preliminary Staphylococcus aureus Proteus mirabilis Gram negative mely 10/05/23 05:40 Blood Culture - Preliminary Blood - Venous No growth after 48 hours. 10/05/23 05:31 Blood Culture - Preliminary Blood - Venous No growth after 48 hours. 10/03/23 17:44 Blood Culture - Final Blood - Venous Staphylococcus aureus Assessment and Plan (1) Wound infection: Status: Acute (2) Cellulitis of foot: Status: Acute (3) Opiate use: Status: Acute Plan 63-year-old male with history of bipolar disorder, polysubstance abuse, history IV drug abuse, opiate dependence on methadone, history of hepatitis-C infection, asthma, hypertension, rheumatoid arthritis admitted for further management of cellulitis of the left lower leg and foot s/p left 2nd toe amputation with acute infection of surgical wound. # acute cellulitis left lower leg/foot s/p left 2nd toe amputation with infected surgical wound --MRI left 2nd dig osteo, and suspicious 3r dig osteo--see full report -wound culture: S aureus P mirabili M.I.C. RX M.I.C. RX --------- --- --------- --- Ampicillin <=2 S Cefazolin <=4 S Ceftriaxone <=0.25 S Clindamycin <=0.25 R Erythromycin >=8 R Gentamicin <=1 S Levofloxacin 0.25 S <=0.12 S Oxacillin 0.5 S Penicillin-G 0.06 S Tetracycline <=1 S Trimethoprim/Sulfamethoxazole <=10 S <=20 S -IV vancomycin and Zosyn (initiated 10/03) -ID recommends IV ERtapenem for 6 weeks -requesting PICC line # /2 Staph Species bacteremia--continue IV Vanco and Zosyn as above echo # moderate persistent asthma, no exacerbaton -Continue singulair, Advair, albuterol prn #HTN--BP controlled -continue Norvasc 10/d - losartan to 50/d #Polysubstance abuse/IVDA with opioid dependence -UTox positive for opiates, fentanyl, cocaine -addiction medicine/recovery saw, outpt resources -continue methadone - HIV ab/ag neg and hep c viral load (hx hep c) pending #History hep c -unclear if treated -cviral load as above given ongoing IVDA #Transaminitis -likely due to above -plan as above #Acute on Chronic normocytic anemia -likely r/t acute illness/chronic disease -H/H above transfusion threshold #RA -stable -continue gabapentin #Mood disorder -continue home meds DVT prophylaxis-heparin Full code continuing hospitalization for IV Abx for OM/bacteremia and need for placement for [facility] IV Abx that cannot be done at home Quality Stroke Does the patient have a stroke diagnosis?: No VTE Prior VTE?: No VTE Risk Level:: Medical - moderate - high VTE Device Contraindication: Treatment Not Indicated VTE Drug Contraindication: N/A - Med Ordered
--- NOTE | 2023-10-07 10:36 | HO.PICC ---
PICC Line Insertion NPICC Diagnosis: Osteomyelitis left foot Indication: senior living antibiotic use Pertinent Labs: reviewed Technique: Following informed consent including risks, benefits and alternatives and using sterile technique including cap and mask, sterile gown, glove and drape, the right arm was prepped and draped in the usual sterile fashion of full barrier technique with CHG. Following completion of [place] Protocol the skin and soft tissues were anesthetized with 1% Lidocaine plain. Using ultrasound guidance, right basilic vein access was obtained. Over an 0.018 wire through peel-away sheath, a 4FR single lumen PASV PowerPICC SOLO PICC line was positioned. Catheter length is 41cm internal length, 1cm external length, for a total trimmed length of 41cm. The procedure was performed in Rm 272. Tip verification was performed by Polly Baez with Jose 3CG. Tip located in SVC. Ultrasound was used to document vein patency and for needle entry. A formal ultrasound picture and cardiac rhythm strip was recorded. Vascular Courtroom Clerk has released the line for use and it is currently dressed with a StatLock, Tegaderm, and CHG disc. Verification has been performed for blood return and line patency. Arm Circumference: 25cm Equipment: PowerPICC SOLO catheter Catheter Type: 4FR single lumen PASV PICC line catheter Lot #: [id number]
--- NOTE | 2023-10-07 12:48 | PM.CNGS ---
History of Present Illness Consult details Consult date: 10/07/23 Reason for consult: wound care Narrative: Very complex 63-year-old gentleman well known to me with a prior history of nonhealing left 2nd toe with underlying osteomyelitis. He would undergone amputation on 08/12/2023. He had been lost to follow-up since that time. He now presented to the hospital with significant swelling and discomfort over the last few days. He had been seen by the General surgery team and reports that he is doing significantly better since that time. He now presents to us for follow-up. Review of Systems Review of Systems: Yes all other systems are reviewed and are negative Constitutional: Constitutional: Reports no additional constitutional complaints ENT: Reports Normal hearing present Cardiovascular: Cardiovascular: Denies chest pain, Denies chest pain at rest, Denies chest pain with activity and Denies pedal edema Respiratory: Respiratory: Denies cough Gastrointestinal: Gastrointestinal: Denies abdominal pain Musculoskeletal: Musculoskeletal: Denies abnormal gait, Denies muscle cramps and Denies radiating pain into limb Integumentary/Breasts: Skin/Breast: Denies skin ulcer and Denies wounds Neurologic: Reports Normal hearing present and Denies abnormal gait Psychiatric: Psychiatric: Reports no additional psychiatric complaints PMFSH Past Medical History Medical History Bipolar disorder Aneurysm of descending thoracic aorta Hepatitis C Rheumatoid arthritis Active substance abuse HTN (hypertension) Arthritis Glaucoma Neuropathy Asthma Bipolar disorder Family History Family history: reviewed and not pertinent Surgical History Surgical History No pertinent past surgical history Social History Social History Household Members: None Housing: Apartment Do you presently have visiting nurse or other home services: No Alcohol intake: current Alcohol intake frequency: a few times a month Patient Tobacco Use Status: Current someday Tobacco user Tobacco use type: Cigarette Cigarette Packs Per Day: 2 Cigarettes Per Day: 3 Years Smoked: 2 e-Cigarette/Vaping Use: Currently Using Second Hand Smoke Exposure: Yes Substance Use Type: Crack/Cocaine and Heroin service: No Meds Allergies Allergy/AdvReac Type Severity Reaction Status Date / Time Penicillins [PENICILLINS] Allergy Unknown UNKNOWN Verified 10/04/23 03:55 risperidone [From RISPERDAL] Allergy Unknown UNKNOWN Verified 10/04/23 03:55 pregabalin [From Lyrica] Allergy Unknown Verified 10/04/23 03:56 From GEODON Allergy Unknown UNKNOWN Uncoded 10/04/23 03:56 Active Medications: Current Medications Acetaminophen (Acetaminophen 325 Mg Tablet) 975 mg PO Q6H PRN PRN Reason: Pain, Mild (Pain Scale 1-3) Last Admin: 10/05/23 16:25 Dose: 975 mg Albuterol/Ipratropium (Albuterol/Iprat 2.5/0.5mg 3 Ml Ampul.Neb) 3 ml INHALE RQ4H WHILE AWAKE PRN PRN Reason: Shortness of Breath/Wheezing Amlodipine Besylate (Amlodipine Besylate 10 Mg Tablet) 10 mg PO DAILY [facility]; Protocol Last Admin: 10/07/23 08:02 Dose: 10 mg Heparin Sodium (Porcine) (Heparin Sodium,Porcine 5,000 Unit/Ml Vial) 5,000 unit SUBCUT Q12H [facility] Last Admin: 10/07/23 04:04 Dose: 5,000 unit Piperacillin Sod/Tazobactam (Sod 3.375 gm/ Sodium Chloride) 50 mls @ 100 mls/hr IV Q6H [facility] Last Infusion: 10/07/23 07:47 Dose: Infused Vancomycin HCl 1,000 mg/ (Sodium Chloride) 270 mls @ 270 mls/hr IV Q12H [facility] Last Infusion: 10/07/23 09:02 Dose: Infused Ketorolac Tromethamine (Ketorolac Tromethamine 15 Mg/Ml Vial) 15 mg IVPUSH Q6H PRN PRN Reason: Pain, Moderate(Pain Scale 4-6) Last Admin: 10/06/23 23:10 Dose: 15 mg Losartan Potassium (Losartan Potassium 50 Mg Tablet) 50 mg PO DAILY [facility]; Protocol Last Admin: 10/07/23 08:02 Dose: 50 mg Methadone HCl (Methadone Hcl 20 Mg/2 Ml Oral.Conc) 45 mg PO DAILY [facility] Last Admin: 10/07/23 08:03 Dose: 45 mg Montelukast Sodium (Montelukast Sodium 10 Mg Tablet) 10 mg PO BEDTIME [facility] Last Admin: 10/06/23 20:46 Dose: 10 mg Pharmacy Consult (Consult Rx Vancomycin Dosing) 1 each MISCELLANE DAILY PRN PRN Reason: Consult order Sodium Chloride (0.9 % Sodium Chloride Flush 3 Ml Syringe) 3 ml IVFLUSH QSHIFT [facility] Last Admin: 10/07/23 07:17 Dose: 3 ml Home Medications Medication Instructions Recorded Confirmed Last Taken Type albuterol sulfate 90 mcg/actuation 1 inh inhalation DAILY PRN 08/09/23 10/03/23 1 Month Ago History aerosol inhaler Shortness Of Breath Or Wheezing ~09/02/23 amlodipine 10 mg tablet 10 mg PO DAILY 08/09/23 10/03/23 1 Month Ago History ~09/02/23 fluticasone 500 mcg-salmeterol 50 1 ea inhalation BID 08/09/23 10/03/23 1 Month Ago History mcg/dose blistr powdr for ~09/02/23 inhalation (Advair Diskus) gabapentin 600 mg tablet 600 mg PO TID 08/09/23 10/03/23 1 Month Ago History ~09/02/23 hydroxyzine HCl 50 mg tablet 50 mg PO TID 08/09/23 10/03/23 1 Month Ago History ~09/02/23 losartan 25 mg tablet 25 mg PO DAILY 08/09/23 10/03/23 1 Month Ago History ~09/02/23 montelukast 10 mg tablet 10 mg PO DAILY 08/09/23 10/03/23 1 Month Ago History ~09/02/23 quetiapine 25 mg tablet 25 mg PO BEDTIME 08/09/23 10/03/23 1 Month Ago History ~09/02/23 trazodone 50 mg tablet 50 mg PO BEDTIME 08/09/23 10/03/23 1 Month Ago History ~09/02/23 Physical Exam Vital Signs: Vital Signs: Last Vital Signs Temp 97.5 F 10/07/23 07:33 Pulse 57 10/07/23 07:33 Resp 16 10/07/23 07:33 BP 168/87 H 10/07/23 07:33 Pulse Ox 97 10/07/23 07:33 O2 Del Method Room Air 10/07/23 07:33 BMI result Body Mass Index 22.2 Const: General: cooperative, healthy appearing and comfortable Orientation/consciousness: oriented to person, oriented to place and oriented to time HEENT: Head: Yes normal to inspection Neck: Neck: Yes normal visual inspection Carotids: no bruits Chest: Chest palpation & inspection: normal inspection of the chest Resp: Effort & Inspection: normal respiratory effort and able to speak in complete sentences Auscultation: clear to auscultation bilaterally, no crackles, no rales, no rhonchi and no wheezes Cardio: Rate: regular rate Rhythm: regular rhythm Heart sounds: S1 normal heart sound present and S2 normal heart sound present Bruits: no carotid bruits Peripheral pulses: Peripheral pulses 2+ throughout GI: Inspection: Yes normal to inspection Skin: Other: Left 2nd toe amputation site with opening central portion of 2.5 x 0.6 x 0.1 cm. Fairly clean granulation base. Some serous drainage. Wounds: no wounds Hair: normal Neuro: General: oriented to person, oriented to place and oriented to time Cranial nerves: Yes CN's II-XII intact bilaterally and Yes Normal hearing present Cognition (Neuro): normal cognition Motor exam (neuro): 5/5 motor strength present throughout Extrem: Other: venous exam: No significant superficial varicosities or spider telangiectasias, minimal edema General: No clubbing, No cyanosis and No edema Psych: Appearance: grossly normal Mental Status: mental status grossly normal Speech and movement: Normal speech and movement present Results Labs 10/05/23 05:31 10/07/23 06:10 Labs: Abnormal lab results 10/04/23 10/07/23 Range/Units 06:49 06:10 C-React Prot High Sens >10.0 H mg/L Random Vancomycin 13.8 L (15-20) mcg/mL BMP 10/06/23 10/07/23 12:56 06:10 Creatinine 0.87 0.78 All other labs normal. Assessment and Plan (1) Wound infection: Status: Acute Plan In short patient has nonhealing amputation site. The concern is there may be underlying osteomyelitis. In general it does have a fairly decent granulation base. My hope is that it will go on to heal. He already has a PICC line. Per ID scheduled for 6 weeks of ertapenem at a facility. Hopefully this will go on to heal. He can follow up with us as an outpatient in approximately 2 weeks time. Wound care orders written. Thank you for allowing us to assist in this patient's care. Procedures Date of Service Date of Service: 10/07/23
--- NOTE | 2023-10-07 13:44 | PM.DS ---
DS: Providers Provider Date of Service: 10/08/23 Date of admission: 10/03/23 21:07 Primary care physician: Pushpa Alonzo MD Consults: 10/04/23 01:46 Consult to Vascular Surgery Routine Consulting Provider: [facility] Vascular Services Reason for consultation: s/p left 2nd toe amputation. Wound infection 10/04/23 04:03 Consult to Wound Care Routine Reason for consultation: cellulitis to lower left leg/ foot with drainage at 2nd toe amputation area Has provider been notified: Yes 10/04/23 11:23 Addiction Medicine Routine Consulting Provider: Addiction Covering Reason for consultation: polysubstance abuse 10/06/23 08:22 Consult to Infectious Diseases Routine Consulting Provider: [facility] Infectious Disease Reason for consultation: polymicrobial wound infection Has provider been notified: No 10/07/23 10:36 Consult to Wound Care Routine Reason for consultation: Eval toe amp site Has provider been notified: No DS: Diagnosis Discharge Diagnosis (1) Wound infection: Status: Acute DS: Summary Hospital Course Hospital Course: Chief Complaint: Leg swelling Jason Yoo is a 63 years old man with past medical history significant for bipolar disorder, drug use (smokes cocaine), asthma, heroin use disorder (on methadone) hep C infection, hypertension and RA presents to the emergency department complaining of swelling to the left lower extremity associated with redness. He denied any associated pain. On July 2023 the patient was admitted to the hospital with diagnosis of osteomyelitis of the left 2nd toe and cellulitis undergoing an amputation of the 2nd toe by Dr. Shah from vascular surgery. Patient noted that this symptoms had been getting worse over the last 2 days. He denied any associated fever, chills or dizziness. He denied any cardiopulmonary, gastrointestinal genitourinary symptoms. Patient stated that he lives in the streets it has not been taking any of his medications. He also stated that he has not had had any follow-up after the surgery. He denies alcohol abuse. Smokes tobacco occasionally. In the ED, he was found to have stable vital signs. There is no fever reported. Blood workup did not show leukocytosis. There are no significant electrolyte imbalances and renal function is normal. LFTs are slightly elevated. Urine drug screen is positive for opiates, fentanyl and cocaine. Viral testing for COVID-19 and influenza are negative. Blood and wound cultures were obtained. ED tx: Zosyn 3.375 g IV x1, vancomycin 2 g IV x1, NS 1 L bolus. Hospital course: 63-year-old male with history of bipolar disorder, polysubstance abuse, history IV drug abuse, opiate dependence on methadone, history of hepatitis-C infection, asthma, hypertension, rheumatoid arthriti presented with foot pain, swelling and found to have cellulitis of the left lower leg and foot associated with recent surgery for amputation of left 2nd toe. He had MRI which showed osteomylitis of the left second and 3rd digit. Wound culture showed Proteus and S. Aureus with sentivity as below. While in the hospital he was treated with Vancomycin and Zosyn and was evaluated by Dr. Martinez from infectious disease who recommended IV antibiotics with Invanz for 6 weeks, a PICC line was inserted on 10/07/23 for this S aureus P mirabili M.I.C. RX M.I.C. RX --------- --- --------- --- Ampicillin <=2 S Cefazolin <=4 S Ceftriaxone <=0.25 S Clindamycin <=0.25 R Erythromycin >=8 R Gentamicin <=1 S Levofloxacin 0.25 S <=0.12 S Oxacillin 0.5 S Penicillin-G 0.06 S Tetracycline <=1 S Trimethoprim/Sulfamethoxazole <=10 S <=20 S # 1/2 Staph Species bacteremia--Treatment as above. Echo no vegetations # moderate persistent asthma, no exacerbaton -Continue singulair, Advair, albuterol #HTN--BP controlled -continue Norvasc 10/d - losartan to 50/d #Polysubstance abuse/IVDA with opioid dependence -UTox positive for opiates, fentanyl, cocaine -addiction medicine/recovery saw and offered outpt resources -continue methadone - HIV ab/ag neg and hep c viral load (hx hep c) pending #History hep c -unclear if treated -cviral load as above given ongoing IVDA #Transaminitis -likely due to above -plan as above #Acute on Chronic normocytic anemia -likely r/t acute illness/chronic disease -H/H above transfusion threshold #RA -stable -continue gabapentin #Mood disorder -continue home meds To short term rehab Time Attestation Discharge coordination time: Greater than 30 minutes Quality: Safe Use of Opioids Does Pt have an Active Cancer Diagnosis on the Problem List?: No Quality: Stroke Does the patient have a stroke diagnosis?: No Physical Exam Vital Signs: Vital Signs: Selected Entries 10/08/23 07:55 Temperature 98.0 F Pulse Rate 58 Respiratory Rate 17 Blood Pressure 154/89 H Pulse Oximetry 97 Oxygen Delivery Me thod Room Air Constitutional - Awake and Alert, No apparent distress, A and O x 3 Cardiovascular - S1S2, RRR, No edema Respiratory - Normal lung expansion, Normal respiratory effort, No respiratory distress, CTA bilaterally Gastrointestinal - NT / ND; +BS; No rebound or guarding Extremities - no calf tenderness bilaterally, no swelling. s/p amp left 2nd toe. Erythema, warmth, mild swelling anterior left lower leg extending foot to knee Skin - Warm/Dry--see pic essentially unchanged Neurological -NF Psychological - Appropriate affect Extrem: Other: Dressings changed to left foot. Minimal serous discharge noted. Erythema improved. DS: Data Data Completed and Pending Completed studies during hospitalization [Text1]: Procedures Detachment at Left 2nd Toe, Complete, Open Approach (08/09/23) Labs on day of discharge: Laboratory Results - last 24 hr 10/04/23 10/07/23 06:49 06:10 Hold Purple Top SEE NOTE Creatinine 0.78 Estim Creat Clear Calc 106.1 Estimated GFR > 60 C-React Prot High Sens >10.0 H Random Vancomycin 13.8 L Preliminary micro results at discharge 10/03/23 19:33 Routine Culture - Preliminary Foot Left Staphylococcus aureus Proteus mirabilis Gram negative mely 10/05/23 05:40 Blood Culture - Preliminary Blood - Venous No growth after 48 hours. 10/05/23 05:31 Blood Culture - Preliminary Blood - Venous No growth after 48 hours. 10/03/23 18:18 Blood Culture - Preliminary Blood - Venous No growth after 48 hours. Discharge Plan Discharge Anticipated Discharge Date/Time: 10/08/23 12:59 Patient Disposition: Xfer SNF Discharge Diagnosis: Cellulitis of the foot, osteomylitis of the foot Referrals: [facility] [Outside] - 1 Day (to finish your IV antibiotics) Pushpa Alonzo MD [Primary Care Provider] - 1 Week Discharge Medications: New ertapenem 1 gram recon soln 1 g IV DAILY Qty: 41 0RF Continued quetiapine 25 mg tablet 25 mg PO BEDTIME gabapentin 600 mg tablet 600 mg PO TID trazodone 50 mg tablet 50 mg PO BEDTIME hydroxyzine HCl 50 mg tablet 50 mg PO TID amlodipine 10 mg tablet 10 mg PO DAILY fluticasone propion-salmeterol [Advair Diskus] 500-50 mcg/dose blister with device 1 ea INHALATION BID losartan 25 mg tablet 25 mg PO DAILY montelukast 10 mg tablet 10 mg PO DAILY albuterol sulfate 90 mcg/actuation HFA aerosol inhaler 1 inh inhalation DAILY PRN (Reason: Shortness Of Breath Or Wheezing) Discharge Orders: Discharge Order (Routine); Ordered 10/07/23 Ordered By: Kurtis Lynn Diet: Advance to usual diet Activity on Discharge: As tolerated Stand Alone Forms: Patient Portal Discharge page Activity Restrictions/Additional Instructions: Wound care upon discharge: Alginate, 2 x 2 and Kerlix wrap to be changed daily on left foot. Please call Dr. Shah at [phone] for 2 week follow up Care Plan Goals: Healing of wound and recovery from osteomylitis Health Concerns: Osteomylitis of the foot Plan of Treatment: Take Invanz 1 gram IV fo 6 weeks ending November 17, [address] Martinez in 2 weeks bmp, lfts, cbc weekly Assessment: see araceli
--- NOTE | 2023-10-07 13:47 | MHC.CM.PN ---
Addendum entered by Julia Mart RN 10/07/23 13:53: Margarito Muñoz - [facility] can fax all required documentation to [facility] at [phone] Original Note: Margarito Muñoz @ [facility] intake, patient is currently active with [facility]. [facility] will require the following documentation prior to acceptance: Dosing history x 30days from last dose Tox screens x 90 days ABH form (Wanda will fax to office) ENMANUEL [facility] is closed for the day. will attempt to obtain required documentation tomorrow.
[2023-10-07 15:29] VITALS: BP 129/73; PULSE 55; RESP 18; TEMP 36.5; O2SAT 99
[2023-10-07 19:58] VITALS: BP 156/76; PULSE 60; RESP 20; TEMP 36.7; O2SAT 98
[2023-10-07] MEDS: Montelukast Sodium 10 MG TABLET PO (21:22)
[2023-10-07 23:23] VITALS: BP 166/75; PULSE 56; RESP 18; TEMP 37.1; O2SAT 97
[2023-10-08] MEDS: Piperacillin Sodium/Tazobactam 3.375 GM in 0.9 % Sodium Chloride 50 ML IV ×2 (01:59→07:57)
[2023-10-08] MEDS: Heparin Sodium,Porcine 5,000 UNIT/ML VIAL 5000 UNIT SUBCUT ×2 (05:32→18:36)
[2023-10-08 06:53] LABS: Creatinine Clr Calc Pharmacy 104.8; Estimated Glomerular Filt Rate > 60
[2023-10-08] MEDS: Ketorolac Tromethamine 15 MG/ML VIAL IVPUSH (07:51)
[2023-10-08] MEDS: amLODIPine Besylate 10 MG TABLET PO (07:51)
[2023-10-08] MEDS: Losartan Potassium 50 MG TABLET PO (07:51)
[2023-10-08] MEDS: 0.9 % Sodium Chloride Flush 3 ML SYRINGE IVFLUSH ×2 (07:52→18:35)
[2023-10-08] MEDS: methADONE HCl 20 MG/2 ML ORAL.CONC 45 MG PO (07:52)
[2023-10-08 07:55] VITALS: BP 154/89; PULSE 58; RESP 17; TEMP 36.7; O2SAT 97
[2023-10-08] MEDS: vancomycin HCL 1,000 MG in 0.9 % Sodium Chloride 250 ML 270 MG IV (08:36)
--- NOTE | 2023-10-08 13:15 | MHC.CM.PN ---
EMR REVIEWED. PER MD ROUNDS PATIENT IS MEDICALLY CLEARED FOR DC TO [facility] FOR IV ABX. GUEST DOSING HAS BEEN ARRANGED W/ [facility] AND [facility]. S TRANSPORTATION SCHEDULED FOR 6PM. RN AND MD AWARE. IMM DELIVERED.
--- NOTE | 2023-10-08 13:31 | HO.WOUND ---
Wound Consult: Initial 63yr old?M admitted to [facility] on 09/14 - See progress notes and H&P for detailed history.? Wound consult placed for Left 2nd toe amp site - followed by Dr. Shah.? Patient agreeable to assessment and photo documentation.? Left 2nd Toe Amp site Etiology: Left 2nd Toe Amp site ? Measurements: 1.5cm x 0.5cm x 0.2cm Wound Bed: red clean viable tissue - no sutures noted wound dehiscence noted Drainage / Odor: yellow venegas drainage noted on dressing when removed - dried drainage noted to periwound. Edges: ? well defined and macerated Felisha wound: ?Intact and moiste - No Induration, Fluctuance or Warmth noted Pain: mild tenderness reported Goals of Treatment: ? Durafiber AG for moisture management Recommendations: 1. Left 2nd Toe Amp site - Cleanse with NS, Pat dry. Apply barrier wipe to wound edge. Cover wound bed with cut to size piece of Durafiber AG (Alginate or Hydrofiber) cover with dry gauze, ABD pad to plantar area of foot for added padding and gauze wrap. Change daily while inpatient once discharged may changed every other day. Continue follow up with Dr. Shah outpatient as scheduled. Re-consult wound care Nurse for wound deterioration or wound changes.
[2023-10-08] MEDS: Ertapenem Sodium 1 GM in 0.9 % Sodium Chloride 50 ML IV (14:15)
[2023-10-08 16:00] VITALS: BP 129/81; PULSE 59; RESP 16; TEMP 36.8; O2SAT 98
--- NOTE | 2023-10-08 20:13 | PC.NURSE ---
Pt seen on the recliner chair alert and oriented, denies any pain, awaiting for ambulance, pt for discharge to [facility]. ethics instructor came at 1940, report given, pt left on a stretcher at 1950
[2023-10-09 07:38] LABS: HepC Viral Load 7970000 IU/mL (NOT DETECTED)
== END 2023-10-08 19:50 | disposition skilled nursing facility (03) | DRG 565 ==
LOC: HO.ED 19:37 → HO.EDOVER 21:30 → HO.S3 10-04 01:12
PROVIDERS: Physician Assistant; Student in an Organized Health Care Education/Training Program; Admitting Provider Internal Medicine; Emergency Provider Emergency Medicine Emergency Medical Services; PCP Internal Medicine; Visit Provider Internal Medicine
PROC: 02HV33Z Insertion of Infusion Device into Superior Vena Cava, Percutaneous Approach (ICD-10-PCS; principal; 2023-10-07 09:30)
DX: T87.44 Infection of amputation stump, left lower extremity (principal); F11.20 Opioid dependence, uncomplicated; L03.116 Cellulitis of left lower limb; M86.9 Osteomyelitis, unspecified; Z16.24 Resistance to multiple antibiotics; F31.9 Bipolar disorder, unspecified; J45.40 Moderate persistent asthma, uncomplicated; B95.61 Methicillin susceptible Staphylococcus aureus infection as the cause of diseases classified elsewhere; B96.4 Proteus (mirabilis) (morganii) as the cause of diseases classified elsewhere; D53.9 Nutritional anemia, unspecified; F19.10 Other psychoactive substance abuse, uncomplicated; I10 Essential (primary) hypertension; M06.9 Rheumatoid arthritis, unspecified; F17.210 Nicotine dependence, cigarettes, uncomplicated; Z71.6 Tobacco abuse counseling; Z20.822 Contact with and (suspected) exposure to COVID-19; Z86.19 Personal history of other infectious and parasitic diseases; Z88.0 Allergy status to penicillin; Z79.51 Long term (current) use of inhaled steroids; Z79.899 Other long term (current) drug therapy
CPT/HCPCS: 36415; 36573; 73720; 80048; 80053; 80202; 80307; 82565; 83605; 83690; 85025; 85027; 85652; 86141; 87040; 87070; 87077; 87186; 87205; 87389; 87502; 87522; 87635; 93306; 99285; A9585; C1751; J1335; J1644; J1885; J2543; J3370

== ENCOUNTER 2023-10-03 21:07 | Outpatient (BNV) | payer MEDICARE, MEDICAID, SELFPAY | END 2023-10-07 07:00 | PROVIDERS: Admitting Provider Internal Medicine; Emergency Provider Emergency Medicine Emergency Medical Services; PCP Internal Medicine; Visit Provider Internal Medicine | DX: R78.81 Bacteremia (principal); L03.115 Cellulitis of right lower limb | CPT/HCPCS: 93306 ==

== ENCOUNTER → 2023-10-03 21:07 | Outpatient (BNV) | payer MEDICARE, MEDICAID, SELFPAY | PROVIDERS: Admitting Provider Internal Medicine; Emergency Provider Emergency Medicine Emergency Medical Services; PCP Internal Medicine; Visit Provider Surgery Vascular Surgery | DX: M86.9 Osteomyelitis, unspecified (principal); L08.9 Local infection of the skin and subcutaneous tissue, unspecified | CPT/HCPCS: 99024; 99222 ==

== ENCOUNTER → 2023-10-03 21:07 | Outpatient (BNV) | payer MEDICARE, MEDICAID, SELFPAY | PROVIDERS: Admitting Provider Internal Medicine; Emergency Provider Emergency Medicine Emergency Medical Services; Visit Provider Nurse Practitioner Psychiatric/Mental Health | DX: F11.90 Opioid use, unspecified, uncomplicated (principal) | CPT/HCPCS: 99232 ==

== ENCOUNTER → 2023-10-03 21:07 | Outpatient (BNV) | payer MEDICARE, MEDICAID, SELFPAY | PROVIDERS: Admitting Provider Internal Medicine; Emergency Provider Emergency Medicine Emergency Medical Services; Visit Provider Surgery | DX: L03.119 Cellulitis of unspecified part of limb (principal) | CPT/HCPCS: 99222; 99232 ==

== ENCOUNTER → 2023-10-03 21:07 | Outpatient (BNV) | payer MEDICARE, MEDICAID, SELFPAY | PROVIDERS: Admitting Provider Internal Medicine; Emergency Provider Emergency Medicine Emergency Medical Services; Visit Provider Internal Medicine | DX: L03.116 Cellulitis of left lower limb (principal); F11.20 Opioid dependence, uncomplicated; Z89.422 Acquired absence of other left toe(s); T40.411D Poisoning by fentanyl or fentanyl analogs, accidental (unintentional), subsequent encounter; T14.8XXA Other injury of unspecified body region, initial encounter | CPT/HCPCS: 99223; 99232; 99239; 99499 ==

== ENCOUNTER → 2023-10-03 21:07 | Outpatient (BNV) | payer MEDICARE, MEDICAID, SELFPAY | PROVIDERS: Admitting Provider Internal Medicine; Emergency Provider Emergency Medicine Emergency Medical Services; PCP Internal Medicine; Visit Provider Internal Medicine | DX: T14.8XXA Other injury of unspecified body region, initial encounter (principal); L08.9 Local infection of the skin and subcutaneous tissue, unspecified; L03.119 Cellulitis of unspecified part of limb | CPT/HCPCS: 99222 ==

== ENCOUNTER 2023-11-05 15:05 | Outpatient (AMB) | payer MEDICARE, MEDICAID, SELFPAY ==
--- NOTE | 2023-11-05 15:01 | A.OFFVIS_ITS ---
Intake Vital Signs 3 11/05/23 15:03 Weight 177 lb Pulse 72 Pulse Source Pulse Oximeter Temp 98.5 F Temp Source Oral Pulse Oximetry (%) 98 Intake Visit Reasons: ref.[facility],Polymicrobial wound inf.IV ending 11/17/23 Allergies Penicillins [PENICILLINS] Allergy (Unknown, Verified 11/05/23 15:11) UNKNOWN risperidone [From RISPERDAL] Allergy (Unknown, Verified 11/05/23 15:11) UNKNOWN pregabalin [From Lyrica] Allergy (Verified 11/05/23 15:11) Unknown From GEODON Allergy (Unknown, Uncoded 10/04/23 03:56) UNKNOWN HPI ref.[facility],Polymicrobial wound inf.IV ending 11/17/23 2 HPI0 Location He has no complaints [facility] Medical History Bipolar disorder Aneurysm of descending thoracic aorta Hepatitis C Rheumatoid arthritis Active substance abuse HTN (hypertension) Arthritis Glaucoma Neuropathy Asthma Bipolar disorder Surgical History No pertinent past surgical history Social History Household Members: None Housing: Apartment Do you presently have visiting nurse or other home services: No Alcohol intake: current Alcohol intake frequency: a few times a month Patient Tobacco Use Status: Current someday Tobacco user Tobacco use type: Cigarette Cigarette Packs Per Day: 2 Cigarettes Per Day: 3 Years Smoked: 2 e-Cigarette/Vaping Use: Currently Using Second Hand Smoke Exposure: Yes Substance Use Type: Crack/Cocaine and Heroin service: No Review of Systems Const All systems reviewed & are unremarkable except as noted in HPI and below Physical Exam Vital Signs: Last Vital Signs Temp 98.5 F 11/05/23 15:03 Pulse 72 11/05/23 15:03 Pulse Ox 98 11/05/23 15:03 Const Other: General: cooperative Orientation/consciousness: patient oriented x3 HEENT Head: Yes normal to inspection Mouth: Normal oral and palatal mucosa present Eyes General: appearance normal, both eyes and all related structures Pupils: Equal, round and reactive pupils present Resp Effort & Inspection: normal respiratory effort Cardio Rate: regular rate Rhythm: regular rhythm GI Palpation (GI): Soft to palpation and nontender General: Yes no CVA tenderness Back/Spine/Pelvis Back: no CVA tenderness Skin General skin exam: no rashes or lesions noted Neuro General: patient oriented x3 Cranial nerves: Yes CN's II-XII intact bilaterally and Yes Equal, round and reactive pupils present Extrem General: Yes normal to inspection Psych Appearance: grossly normal Assessment & Plan Assessment & Plan (1) Abscess of toe: Comment: He is doing well. Code(s): L02.619 - Cutaneous abscess of unspecified foot Qualifiers: Laterality: left Qualified Code(s): L02.612 - Cutaneous abscess of left foot (2) Cellulitis of foot: Code(s): L03.119 - Cellulitis of unspecified part of limb Plan: Would stop IV antibiotics when done. Would continue Doxycycline Plan n/s Orders: Orders 2 IR cvc remove any age 0211/05/23 L08.9 - Local infection of the skin and subcutaneous tissue, unspecified, T14.8XXA - Other injury of unspecified body region, initial encounter Medications: New 2 doxycycline hyclate 100 mg PO BID 60 tabs 0RF 30 days Coding Level of Care Code Est Pt Level 3 (99702) Diagnoses Abscess of toe L02.612 Laterality: left Cellulitis of foot L03.119
[2023-11-05 15:03] VITALS: PULSE 72; TEMP 36.9; O2SAT 98
== END 2023-11-05 16:06 | disposition home or self-care (01) ==
LOC: HO.HID 15:05
PROVIDERS: PCP Internal Medicine; Visit Provider Internal Medicine
DX: L02.612 Cutaneous abscess of left foot (principal); L03.119 Cellulitis of unspecified part of limb
CPT/HCPCS: 99213

== ENCOUNTER → 2023-11-05 15:05 | Outpatient (BNVA) | payer MEDICARE, MEDICAID, SELFPAY | PROVIDERS: PCP Internal Medicine; Visit Provider Internal Medicine | DX: L02.612 Cutaneous abscess of left foot (principal); L03.119 Cellulitis of unspecified part of limb | CPT/HCPCS: 99212 ==

== ENCOUNTER 2023-11-25 10:40 | Outpatient (AMB) | payer MEDICARE, SELFPAY ==
--- NOTE | 2023-11-25 10:52 | A.OFFVIS_ITS ---
Intake Vital Signs 11/25/23 10:52 Weight 177 lb Intake Visit Reasons: Follow Up non healing amp Intake Note: Patient presents in follow up for a non healing amputation. Has swelling on and off, noticable redness. Allergies Penicillins [PENICILLINS] Allergy (Unknown, Verified 11/25/23 10:54) UNKNOWN risperidone [From RISPERDAL] Allergy (Unknown, Verified 11/25/23 10:54) UNKNOWN pregabalin [From Lyrica] Allergy (Verified 11/25/23 10:54) Unknown From GEODON Allergy (Unknown, Uncoded 10/04/23 03:56) UNKNOWN HPI Follow Up non healing amp HPI Details Very complex 63-year-old gentleman well known to me with a prior histo ry of a nonhealing left 2nd toe amp with underlying osteomyelitis. He is being treated with 6 weeks of ertapenem through a PICC line. He is now for outpatient follow-up. He has had no other interval changes. [facility] Medical History Bipolar disorder Aneurysm of descending thoracic aorta Hepatitis C Rheumatoid arthritis Active substance abuse HTN (hypertension) Arthritis Glaucoma Neuropathy Asthma Bipolar disorder Surgical History No pertinent past surgical history Social History Household Members: None Housing: Apartment Do you presently have visiting nurse or other home services: No Alcohol intake: current Alcohol intake frequency: a few times a month Patient Tobacco Use Status: Current someday Tobacco user Tobacco use type: Cigarette Cigarette Packs Per Day: 2 Cigarettes Per Day: 3 Years Smoked: 2 e-Cigarette/Vaping Use: Currently Using Second Hand Smoke Exposure: Yes Substance Use Type: Crack/Cocaine and Heroin service: No Review of Systems Const All systems reviewed & are unremarkable except as noted in HPI and below Reports no additional complaints ENT Reports Normal hearing present Card Denies chest pain, Denies chest pain at rest, Denies chest pain with activity and Denies pedal edema Resp Denies cough GI Denies abdominal pain Musc Denies abnormal gait, Denies muscle cramps and Denies radiating pain into limb Skin/Breast Denies skin ulcer and Denies wounds Neuro Reports Normal hearing present and Denies abnormal gait Psych Reports no additional complaints Physical Exam Const General: cooperative, healthy appearing and comfortable Orientation/consciousness: oriented to person, oriented to place and oriented to time HEENT Head: Yes normal to inspection Neck Neck: Yes normal visual inspection Carotids: no bruits Chest Chest palpation & inspection: normal inspection of the chest Resp Effort & Inspection: normal respiratory effort and able to speak in complete sentences Auscultation: clear to auscultation bilaterally, no crackles, no rales, no rhonchi and no wheezes Cardio Rate: regular rate Rhythm: regular rhythm Heart sounds: S1 normal heart sound present and S2 normal heart sound present Bruits: no carotid bruits Peripheral pulses: Peripheral pulses 2+ throughout GI Inspection: Yes normal to inspection Skin Other: Left 2nd toe amputation site central opening measuring 2.5 x 0.6 x 0.1 which appears to be fairly clean. Wounds: no wounds Hair: normal Neuro General: oriented to person, oriented to place and oriented to time Cranial nerves: Yes CN's II-XII intact bilaterally and Yes Normal hearing present Cognition (Neuro): normal cognition Motor exam (neuro): 5/5 motor strength present throughout Extrem Other: venous exam: No significant superficial varicosities or spider telangiectasias, minimal edema General: No clubbing, No cyanosis and No edema Psych Appearance: grossly normal Mental Status: mental status grossly normal Speech and movement: Normal speech and movement present Assessment & Plan Assessment & Plan (1) PAD (peripheral artery disease): Code(s): I73.9 - Peripheral vascular disease, unspecified Plan: In short patient has nonhealing ulcer. Continue with local wound care. He will follow up with us in approximately 3 months time with noninvasive arterial testing. Thank you for allowing us to participate in his care. If there are any questions or concerns please do not hesitate to contact us. Orders: Orders US arterial duplex LE BI 3 Months I73.9 - Peripheral vascular disease, unspecified Coding Level of Care Code Est Pt Level 4 (43963) Diagnoses PAD (peripheral artery disease) I73.9
== END 2023-11-25 11:21 | disposition home or self-care (01) ==
LOC: HO.HVS 10:41
PROVIDERS: PCP Internal Medicine; Visit Provider Surgery Vascular Surgery
DX: M86.172 Other acute osteomyelitis, left ankle and foot (principal); I73.9 Peripheral vascular disease, unspecified; Z89.422 Acquired absence of other left toe(s)
CPT/HCPCS: 99213

== ENCOUNTER → 2023-11-25 10:40 | Outpatient (BNVA) | payer MEDICARE, MEDICAID, SELFPAY | PROVIDERS: PCP Internal Medicine; Visit Provider Surgery Vascular Surgery | DX: I73.9 Peripheral vascular disease, unspecified (principal) | CPT/HCPCS: 99212 ==

== ENCOUNTER 2023-12-10 13:19 | Outpatient (AMB) | payer MEDICARE, MEDICAID, SELFPAY ==
--- NOTE | 2023-12-10 13:39 | A.OFFVIS_ITS ---
Intake Vital Signs 3 12/10/23 13:54 BP 144/72 H Blood Pressure Location Lt brachial Position Sitting Pulse 85 Temp 97.8 F Temp Source Oral Pulse Oximetry (%) 96 Intake Visit Reasons: follow up 1 month Allergies Penicillins [PENICILLINS] Allergy (Unknown, Verified 12/10/23 13:52) UNKNOWN risperidone [From RISPERDAL] Allergy (Unknown, Verified 12/10/23 13:52) UNKNOWN pregabalin [From Lyrica] Allergy (Verified 12/10/23 13:52) Unknown From GEODON Allergy (Unknown, Uncoded 10/04/23 03:56) UNKNOWN HPI follow up 1 month 2 HPI0 Details He has OM left foot third metatarsal proximal phalangeal head,plantar,MSSA,proteus,E coli He finished IV Ertapenem on 11/17, six weeks. The wound has no purulence but some dark exudate in area able to be removed and told not to soak feet. [facility] Medical History Bipolar disorder Aneurysm of descending thoracic aorta Hepatitis C Rheumatoid arthritis Active substance abuse HTN (hypertension) Arthritis Glaucoma Neuropathy Asthma Bipolar disorder Surgical History No pertinent past surgical history Social History Household Members: None Housing: Apartment Do you presently have visiting nurse or other home services: No Alcohol intake: current Alcohol intake frequency: a few times a month Patient Tobacco Use Status: Current someday Tobacco user Tobacco use type: Cigarette Cigarette Packs Per Day: 2 Cigarettes Per Day: 3 Years Smoked: 2 e-Cigarette/Vaping Use: Currently Using Second Hand Smoke Exposure: Yes Substance Use Type: Crack/Cocaine and Heroin service: No Review of Systems Const All systems reviewed & are unremarkable except as noted in HPI and below Physical Exam Vital Signs: Last Vital Signs Temp 97.8 F 12/10/23 13:54 Pulse 85 12/10/23 13:54 BP 144/72 H 12/10/23 13:54 Pulse Ox 96 12/10/23 13:54 Const Other: General: cooperative Orientation/consciousness: patient oriented x3 HEENT Head: Yes normal to inspection Mouth: Normal oral and palatal mucosa present Eyes General: appearance normal, both eyes and all related structures Pupils: Equal, round and reactive pupils present Resp Effort & Inspection: normal respiratory effort Cardio Rate: regular rate Rhythm: regular rhythm GI Palpation (GI): Soft to palpation and nontender General: Yes no CVA tenderness Back/Spine/Pelvis Back: no CVA tenderness Skin General skin exam: no rashes or lesions noted Neuro General: patient oriented x3 Cranial nerves: Yes CN's II-XII intact bilaterally and Yes Equal, round and reactive pupils present Extrem Other: some interdigital exudate General: Yes normal to inspection Psych Appearance: grossly normal Assessment & Plan Assessment & Plan (1) PAD (peripheral artery disease): Code(s): I73.9 - Peripheral vascular disease, unspecified Plan: Would see in one week see if improvement. He may need Wound Clinic. (2) Wound infection: Code(s): T14.8XXA - Other injury of unspecified body region, initial encounter; L08.9 - Local infection of the skin and subcutaneous tissue, unspecified Plan: na Coding Level of Care Code Est Pt Level 3 (43300) Diagnoses PAD (peripheral artery disease) I73.9 Wound infection T14.8XXA; L08.9
[2023-12-10 13:54] VITALS: BP 144/72; PULSE 85; TEMP 36.6; O2SAT 96
== END 2023-12-10 14:10 | disposition home or self-care (01) ==
LOC: HO.HID 13:19
PROVIDERS: PCP Internal Medicine; Visit Provider Internal Medicine
DX: I73.9 Peripheral vascular disease, unspecified (principal); T14.8XXA Other injury of unspecified body region, initial encounter; L08.9 Local infection of the skin and subcutaneous tissue, unspecified
CPT/HCPCS: 99213

== ENCOUNTER → 2023-12-10 13:19 | Outpatient (BNVA) | payer MEDICARE, MEDICAID, SELFPAY | PROVIDERS: PCP Internal Medicine; Visit Provider Internal Medicine | DX: I73.9 Peripheral vascular disease, unspecified (principal); M86.672 Other chronic osteomyelitis, left ankle and foot; T14.8XXA Other injury of unspecified body region, initial encounter; L08.9 Local infection of the skin and subcutaneous tissue, unspecified | CPT/HCPCS: 99212 ==

== ENCOUNTER 2023-12-22 13:56 | Outpatient (AMB) | payer MEDICARE, SELFPAY ==
[2023-12-22 14:13] VITALS: PULSE 70; TEMP 36.6; O2SAT 96
--- NOTE | 2023-12-22 14:13 | MHC.OFFVIS ---
Intake Vital Signs 12/22/23 14:13 Weight 178 lb Pulse 70 Pulse Source Pulse Oximeter Temp 97.9 F Temp Source Oral Pulse Oximetry (%) 96 Intake Visit Reasons: follow up 1 week Allergies Penicillins [PENICILLINS] Allergy (Unknown, Verified 12/22/23 14:14) UNKNOWN risperidone [From RISPERDAL] Allergy (Unknown, Verified 12/22/23 14:14) UNKNOWN pregabalin [From Lyrica] Allergy (Verified 12/22/23 14:14) Unknown From GEODON Allergy (Unknown, Uncoded 10/04/23 03:56) UNKNOWN HPI follow up 1 week HPI Details He is doing much better Foot looks more clear. [facility] Medical History Bipolar disorder Aneurysm of descending thoracic aorta Hepatitis C Rheumatoid arthritis Active substance abuse HTN (hypertension) Arthritis Glaucoma Neuropathy Asthma Bipolar disorder Surgical History No pertinent past surgical history Social History Household Members: None Housing: Apartment Do you presently have visiting nurse or other home services: No Alcohol intake: current Alcohol intake frequency: a few times a month Patient Tobacco Use Status: Current someday Tobacco user Tobacco use type: Cigarette Cigarette Packs Per Day: 2 Cigarettes Per Day: 3 Years Smoked: 2 e-Cigarette/Vaping Use: Currently Using Second Hand Smoke Exposure: Yes Substance Use Type: Crack/Cocaine and Heroin service: No Review of Systems Const All systems reviewed & are unremarkable except as noted in HPI and below Physical Exam Vital Signs: Last Vital Signs Temp 97.9 F 12/22/23 14:13 Pulse 70 12/22/23 14:13 Pulse Ox 96 12/22/23 14:13 Const Other: General: cooperative Orientation/consciousness: patient oriented x3 HEENT Head: Yes normal to inspection Mouth: Normal oral and palatal mucosa present Eyes General: appearance normal, both eyes and all related structures Pupils: Equal, round and reactive pupils present Resp Effort & Inspection: normal respiratory effort Cardio Rate: regular rate Rhythm: regular rhythm GI Palpation (GI): Soft to palpation and nontender General: Yes no CVA tenderness Back/Spine/Pelvis Back: no CVA tenderness Skin General skin exam: no rashes or lesions noted Neuro General: patient oriented x3 Cranial nerves: Yes CN's II-XII intact bilaterally and Yes Equal, round and reactive pupils present Extrem Other: foot improved General: Yes normal to inspection Psych Appearance: grossly normal Assessment & Plan Assessment & Plan (1) Abscess of toe: Comment: He is doing well. Code(s): L02.619 - Cutaneous abscess of unspecified foot Qualifiers: Laterality: left Qualified Code(s): L02.612 - Cutaneous abscess of left foot Plan finish antibiotics ( he has two weeks more Doxycycline) and see again as needed. Coding Level of Care Code Est Pt Level 3 (01619) Diagnoses Abscess of toe L02.612 Laterality: left
== END 2023-12-22 14:36 | disposition home or self-care (01) ==
PROVIDERS: PCP Internal Medicine; Visit Provider Internal Medicine
DX: L02.612 Cutaneous abscess of left foot (principal)
CPT/HCPCS: 99213

== ENCOUNTER → 2023-12-22 13:56 | Outpatient (BNVA) | payer MEDICARE, MEDICAID, SELFPAY | PROVIDERS: PCP Internal Medicine; Visit Provider Internal Medicine | DX: L02.612 Cutaneous abscess of left foot (principal); Z89.422 Acquired absence of other left toe(s) | CPT/HCPCS: 99212 ==

== ENCOUNTER 2024-03-10 09:52 | Outpatient (REF) | payer MEDICARE, MEDICAID, SELFPAY ==
--- NOTE | ~2024-03-10 | US_ITS ---
EXAMINATION: Noninvasive assessment of the bilateral lower extremities with ARTERIAL DUPLEX and ANKLE BRACHIAL INDICES (ABIs). CLINICAL INFORMATION: Peripheral vascular disease TECHNIQUE: Duplex Doppler techniques with waveform analysis and measurement of velocities in the bilateral common femoral, profunda femoris, superficial femoral, popliteal and tibial arteries were performed. Additionally, ankle pulse volume recordings, ankle pressure measurements and ankle brachial indices were obtained of the lower extremity arterial system bilaterally. The study was performed only at rest. COMPARISON: None FINDINGS: DIRECT DUPLEX DOPPLER FINDINGS: RIGHT LEG: Common femoral artery: 109 cm/s, phasicity: Triphasic Profunda femoris artery: 121 cm/s, phasicity: Triphasic Superficial femoral artery (proximal): 115 cm/s, phasicity: Triphasic Superficial femoral artery (mid): 94.3 cm/s, phasicity: Triphasic Superficial femoral artery (distal): 114 cm/s, phasicity: Triphasic Popliteal artery: 79.2 cm/s, phasicity: Triphasic Posterior tibial artery: 111 cm/s, phasicity: Triphasic Peroneal artery: Not visualized Anterior tibial artery: 61.5 cm/s, phasicity: Triphasic Dorsalis pedis artery: 37.0 cm/s, phasicity:Triphasic Large Waller's cyst in the popliteal fossa measuring 3.9 x 5.7 x 2.0 cm LEFT LEG: Common femoral artery: 117 cm/s, phasicity: Triphasic Profunda femoris artery: 85.2 cm/s, phasicity: Triphasic Superficial femoral artery (proximal): 121 cm/s, phasicity: Triphasic Superficial femoral artery (mid): 92.2 cm/s, phasicity: Triphasic Superficial femoral artery (distal): 70.2 cm/s, phasicity: Triphasic Popliteal artery: 70.6 cm/s, phasicity: Triphasic Posterior tibial artery: 107 cm/s, phasicity: Triphasic Peroneal artery: 28.2 cm/s, phasicity: Triphasic Anterior tibial artery: 45.8 cm/s, phasicity: Triphasic Dorsalis pedis artery: 35.3 cm/s, phasicity: Triphasic ANKLE-BRACHIAL INDEX: Right: 125? Left: 126 ANKLE PRESSURES: Right: PT 145, DP 148 Left: PT?143, DP?149 ANKLE PVR WAVEFORMS: Right: Normal Left: Normal US/US arterial duplex BI w/ SAMANTHA IMPRESSION: Right leg: Normal noninvasive arterial evaluation as described above Left leg: Normal noninvasive arterial evaluation as described above SAMANTHA Reference: - >1.4 = calcified vessels - 0.9 - 1.4 = normal - no significant arterial disease - 0.7 - 0.89 = mild peripheral arterial disease - 0.51 - 0.69 = moderate peripheral arterial disease - ? 0.50 = severe peripheral arterial disease - < .30 = critical arterial disease
== END 2024-03-10 09:53 | disposition home or self-care (01) ==
LOC: HO.US 09:52
PROVIDERS: PCP Internal Medicine; Visit Provider Surgery Vascular Surgery
DX: I73.9 Peripheral vascular disease, unspecified (principal)
CPT/HCPCS: 93922; 93925

== ENCOUNTER 2024-04-08 15:03 | Outpatient (AMB) | payer MEDICARE, MEDICAID, SELFPAY ==
--- NOTE | 2024-04-08 15:04 | A.OFFVIS_ITS ---
Vital Signs 04/08/24 15:05 Height 6 ft 2 in Weight 170 lb BMI 21.8 Intake Visit Reasons: 3m follow up s/p Art US 03/10/24 Intake Note: Arterial US follow up 03/10/24 w/ hx of non healing Left 2nd toe amp. No complaints. Only knee pain Accompanied by: Sister Allergies Penicillins [PENICILLINS] Allergy (Unknown, Verified 04/08/24 15:09) UNKNOWN risperidone [From RISPERDAL] Allergy (Unknown, Verified 04/08/24 15:09) UNKNOWN pregabalin [From Lyrica] Allergy (Verified 04/08/24 15:09) Unknown [place] Allergy (Mild, Uncoded 04/08/24 15:09) Unknown Mirtazapine Allergy (Mild, Uncoded 04/08/24 15:09) Unknown Nafcillin Allergy (Mild, Uncoded 04/08/24 15:09) rash From GEOD[place] Allergy (Unknown, Uncoded 04/08/24 15:09) UNKNOWN HPI HPI 3m follow up s/p Art 03/10/24: Details: Very pleasant 64-year-old gentleman presents for follow-up regarding peripheral vascular disease. He had a history of a nonhealing left 2nd toe amp and had underlying osteomyelitis. Has gone on to heal and he is doing quite well. He has undergone noninvasive testing and now presents for follow-up. Of note he continues to smoke about 5 or 6 cigarettes a day. [facility], [facility] Medical History Bipolar disorder Aneurysm of descending thoracic aorta Hepatitis C Rheumatoid arthritis Active substance abuse HTN (hypertension) Arthritis Glaucoma Neuropathy Asthma Bipolar disorder Surgical History No pertinent past surgical history Social History Household Members: None Housing: Apartment Do you presently have visiting nurse or other home services: No Alcohol intake: current Alcohol intake frequency: a few times a month Patient Tobacco Use Status: Current someday Tobacco user Tobacco use type: Cigarette Cigarette Packs Per Day: 2 Cigarettes Per Day: 3 Years Smoked: 2 e-Cigarette/Vaping Use: Currently Using Second Hand Smoke Exposure: Yes Substance Use Type: Crack/Cocaine and Heroin service: No Review of Systems Const All systems reviewed & are unremarkable except as noted in HPI and below Reports no additional complaints ENT Reports Normal hearing present Card Denies chest pain, Denies chest pain at rest, Denies chest pain with activity and Denies pedal edema Resp Denies cough GI Denies abdominal pain Musc Denies abnormal gait, Denies muscle cramps and Denies radiating pain into limb Skin/Breast Denies skin ulcer and Denies wounds Neuro Reports Normal hearing present and Denies abnormal gait Psych Reports no additional complaints Physical Exam Vital Signs: BMI result Body Mass Index 21.8 Const General: cooperative, healthy appearing and comfortable Orientation/consciousness: oriented to person, oriented to place and oriented to time HEENT Head: Yes normal to inspection Neck Neck: Yes normal visual inspection Carotids: no bruits Chest Chest palpation & inspection: normal inspection of the chest Resp Effort & Inspection: normal respiratory effort and able to speak in complete sentences Auscultation: clear to auscultation bilaterally, no crackles, no rales, no rhonchi and no wheezes Cardio Rate: regular rate Rhythm: regular rhythm Heart sounds: S1 normal heart sound present and S2 normal heart sound present Bruits: no carotid bruits Peripheral pulses: Peripheral pulses 2+ throughout GI Inspection: Yes normal to inspection Skin Wounds: no wounds Hair: normal Neuro General: oriented to person, oriented to place and oriented to time Cranial nerves: Yes CN's II-XII intact bilaterally and Yes Normal hearing present Cognition (Neuro): normal cognition Motor exam (neuro): 5/5 motor strength present throughout Extrem Other: venous exam: No significant superficial varicosities or spider telangiectasias, minimal edema General: No clubbing, No cyanosis and No edema Psych Appearance: grossly normal Mental Status: mental status grossly normal Speech and movement: Normal speech and movement present Results Reviewed Results Reviewed: Noninvasive arterial testing dated 03/10/2024 demonstrates no significant stenosis with triphasic waveforms down bilateral lower extremities. Written re port and images were reviewed. Assessment & Plan Assessment & Plan (1) PAD (peripheral artery disease): Comment: 08/12/2023 - left 2nd toe amp Code(s): I73.9 - Peripheral vascular disease, unspecified Category: Medical Plan: In short patient has stable peripheral vascular disease. I did review the pathophysiology of peripheral vascular disease with the patient. In addition we did discuss routine conservative measures including a healthy diet and the importance of exercise and ambulation. We did discuss risk factor modification. The patient will continue to to follow-up with surveillance follow-up in approximately 1 year. Thank you for allowing us to participate in this patient's care. If there are any questions or concerns please do not hesitate to contact us. Orders: Orders US arterial duplex LE BI 1 Year I73.9 - Peripheral vascular disease, unspecified Coding Level of Care Code Est Pt Level 4 (53849) Diagnoses PAD (peripheral artery disease) I73.9
[2024-04-08 15:05] VITALS: BMI 21.8
== END 2024-04-08 15:18 | disposition home or self-care (01) ==
PROVIDERS: PCP Internal Medicine; Visit Provider Surgery Vascular Surgery
DX: I73.9 Peripheral vascular disease, unspecified (principal)
CPT/HCPCS: 99214

== ENCOUNTER → 2024-04-08 15:03 | Outpatient (BNVA) | payer MEDICARE, MEDICAID, SELFPAY | PROVIDERS: PCP Internal Medicine; Visit Provider Surgery Vascular Surgery | DX: I73.9 Peripheral vascular disease, unspecified (principal); F17.210 Nicotine dependence, cigarettes, uncomplicated; Z89.422 Acquired absence of other left toe(s) | CPT/HCPCS: 99212 ==

== ENCOUNTER 2024-04-11 17:45 | Emergency (ER) | payer MEDICARE, MEDICAID, SELFPAY ==
--- NOTE | ~2024-04-11 | XR_ITS ---
EXAMINATION: XR KNEE, RIGHT CLINICAL INFORMATION: Right knee pain COMPARISON: None available. TECHNIQUE: 2 views of the right knee. FINDINGS: No displaced fracture. Mild degenerative change in the knee with joint space narrowing. There is a small suprapatellar joint effusion. Spurring of the tibial spines. XR/XR knee RT 2V IMPRESSION: Mild degenerative change in the right knee. Small suprapatellar joint effusion.
[2024-04-11 17:53] VITALS: BP 130/80; PULSE 107; O2SAT 97
[2024-04-11 17:54] VITALS: BP 126/74; PULSE 85; RESP 18; TEMP 37.3; O2SAT 95; BMI 21.6
--- NOTE | 2024-04-11 18:14 | PC.NURSE ---
Pt presents to ED via EMS, EMS reports bystanders called because pt was outside and looked like he was going to fall over. Pt reports he was overheating outside and wanted to get out of heat. Pt also reports right knee pain from a fall 2 weeks onto knee. Knee slightly swollen, pt requested ice pack. Alert and oriented, breathing even and unlabored, skin warm and slightly clammy.
--- NOTE | 2024-04-11 18:50 | ED_ITS ---
HPI - General Adult General Chief complaint: Extremity Injury, Lower Stated complaint: pressure in leg Time Seen by Provider: 04/11/24 18:33 History of Present Illness ED Provider: Arsalan Palumbo HPI narrative: 64 yold male with pmh of gout, PAD, opoid use disorder and cellultis presents to the ED for evaluation for right knee pain. Bystanders called ambulance to bring patient in. As per EMS patient was walking and leaning over so bystanders called the ambulance. EMS states patient informed them that he wants to go to the ER because he is tired of the heat and patient's secondary complaint is right knee pain. Patient denies any trauma today any recent trauma. Patient denies hitting head or any loss of consciousness. patient denies any chest pain or shortness. Patient denies any complaint besides right knee pain. Related Data Home Medications ?Medication ?Instructions ?Recorded ?Confirmed albuterol sulfate 90 mcg/actuation 1 inh inhalation DAILY PRN 08/09/23 10/03/23 aerosol inhaler Shortness Of Breath Or Wheezing amlodipine 10 mg tablet 10 mg PO DAILY 08/09/23 10/03/23 gabapentin 600 mg tablet 600 mg PO TID 08/09/23 10/03/23 hydroxyzine HCl 50 mg tablet 50 mg PO TID 08/09/23 10/03/23 losartan 25 mg tablet 25 mg PO DAILY 08/09/23 10/03/23 montelukast 10 mg tablet 10 mg PO DAILY 08/09/23 10/03/23 quetiapine 25 mg tablet 25 mg PO BEDTIME 08/09/23 10/03/23 trazodone 50 mg tablet 50 mg PO BEDTIME 08/09/23 10/03/23 doxycycline hyclate 100 mg capsule 100 mg PO BID 12/10/23 lamotrigine 100 mg tablet 100 mg PO DAILY 12/10/23 (Lamictal) cariprazine 6 mg capsule (Vraylar) 6 mg PO DAILY 12/12/23 methadone 40 mg soluble tablet 40 mg PO DAILY 12/12/23 cariprazine 6 mg capsule (Vraylar) 6 mg PO DAILY 12/22/23 lamotrigine 200 mg tablet 200 mg PO DAILY 12/22/23 sertraline 25 mg tablet 25 mg PO DAILY 12/22/23 Previous Rx's ?Medication ?Instructions ?Recorded naproxen 500 mg tablet 500 mg PO BID PRN pain 7 days #14 04/11/24 tabs prednisone 20 mg tablet 40 mg (2 x 20 mg) PO DAILY 5 days 04/11/24 #10 tabs Allergies Allergy/AdvReac Type Severity Reaction Status Date / Time Penicillins [PENICILLINS] Allergy Unknown UNKNOWN Verified 04/11/24 17:56 risperidone [From RISPERDAL] Allergy Unknown UNKNOWN Verified 04/11/24 17:56 pregabalin [From Lyrica] Allergy Unknown Verified 04/11/24 17:56 [place] Allergy Mild Unknown Uncoded 04/11/24 17:56 Mirtazapine Allergy Mild Unknown Uncoded 04/11/24 17:56 Nafcillin Allergy Mild rash Uncoded 04/11/24 17:56 From [place] Allergy Unknown UNKNOWN Uncoded 04/11/24 17:56 Review of Systems 2 Review of Systems: Right knee pain Yes all other systems are reviewed and are negative FORMERLY [facility] Past Medical History Medical History Bipolar disorder Aneurysm of descending thoracic aorta Hepatitis C Rheumatoid arthritis Active substance abuse HTN (hypertension) Arthritis Glaucoma Neuropathy Asthma Bipolar disorder Surgical History No pertinent past surgical history Social History Social History Household Members: None Housing: Apartment Do you presently have visiting nurse or other home services: No Alcohol intake: current Alcohol intake frequency: a few times a month Patient Tobacco Use Status: Current someday Tobacco user Tobacco use type: Cigarette Cigarette Packs Per Day: 2 Cigarettes Per Day: 3 Years Smoked: 2 Smoked in Last 30 Days: Yes e-Cigarette/Vaping Use: Currently Using Second Hand Smoke Exposure: Yes Use of substances other than those prescribed or required for medical reasons: No Substance Use Type: Crack/Cocaine and Heroin Advance Directives: Yes Advance Directives on File: Yes Advance Directives Date on File: 10/09/23 service: No Physical Exam ED Vital Signs: Vital Signs - 24 hr 04/11/24 17:54 04/11/24 22:43 04/12/24 00:12 Temperature 99.1 F 98.0 F 98.2 F Pulse Rate 85 53 63 Respiratory Rate 18 12 14 Blood Pressure 126/74 142/80 H 147/85 H Pulse Oximetry 95 96 96 Oxygen Delivery Method Room Air Room Air Room Air 04/12/24 00:14 Temperature 98.2 F Pulse Rate 63 Respiratory Rate 14 Blood Pressure 147/85 H Pulse Oximetry 96 Oxygen Delivery Method Room Air BMI result Body Mass Index 21.6 Const General: cooperative, healthy appearing, comfortable, no acute distress, well developed, alert and awake Orientation/consciousness: patient oriented x3 [facility] Head: Yes normal to inspection, Yes No palpable skull fracture present, Yes normocephalic and Yes atraumatic Eyes General: appearance normal, both eyes and all related structures Neck Neck: Yes normal visual inspection, Yes full ROM, Yes no lymphadenopathy, Yes no meningeal signs, Yes trachea midline, Yes supple, No anterior neck swelling and No tender Chest Chest palpation & inspection: normal inspection of the chest and normal palpation of entire chest wall Resp Effort & Inspection: normal respiratory effort and able to speak in complete sentences Auscultation: clear to auscultation bilaterally Cardio Jugular venous distension: no JVD Heart sounds: S1 normal heart sound present and S2 normal heart sound present GI Inspection: Yes normal to inspection Palpation (GI): Soft to palpation, not firm, nontender, no guarding and not rigid General: No CVA tenderness and Yes no CVA tenderness Back/Spine/Pelvis Back: no CVA tenderness, No CVA tenderness and No back tenderness Skin General skin exam: no rashes or lesions noted, elasticity normal and turgor normal Neuro General: patient oriented x3, gait normal, tone normal, moves all extremities, Normal light touch and pain sensation, no meningeal signs, no focal motor deficits, CN's II-XI intact bilaterally and normal sensation to monofilament Extrem General: Yes normal to inspection, Yes full ROM and Yes capillary refill normal Knee images: 2 1. Right knee tenderness on palpation. Negative for erythema, stiffness, swelling, ecchymosis, deformity, or crepitus. Motor/neuro/vascular exam intact 2. Right knee tenderness on palpation. Negative for erythema, stiffness, swelling, ecchymosis, deformity, or crepitus. Motor/neuro/vascular exam intact Psych Appearance: grossly normal, well kempt and not disheveled Medical Decision Making Medical Decision Making MDM Narrative: Since sleeping in bed eating food. Patient states he just wanted to get away from the heat so he agreed to came to the hospital. Patient states slight knee discomfort but no recent trauma. Patient does not want any pain medication. not suspecting fracture. 11:19pm: Patient comfortable in the bed. patient ate a meal during ED visit. Physical exam does not indicate septic joint. X-ray negative for fracture. X- ray show arthritis is small suprapatellar effusion. Knee negative for redness or warmth. Unlikely gout exacerbation. Patient does not want pain meds. Patient states no complaints. Physical exam negative for trauma. Patient denies any chest pain, shortness of breath, abdominal pain, weakness no, or any life-threatening compliance. Patient is alert oriented x3 with normal gait. Patient is explained worrisome signs and informed to return to the ED immediately. No indication for arthrocentesis. Differential Diagnosis Differential Diagnoses: The differential diagnosis associated with the presentation includes (gout, septic joint fracture, ) Admission/Observation Consideration of admission/observation: Escalation of care including admission/observation considered Independent Historian Clinical information obtained from an independent historian. History obtained from or confirmed by: Other (patient) External Record Review External record reviewed: Other (prior visit) Prescription Management I considered prescription management with: Pain Medication Discharge Plan Discharge Clinical Impression: Arthralgia, Knee joint effusion, Osteoarthritis Patient Disposition: Home, Self-Care Instructions: Osteoarthritis (ED), Swollen Knee Joint (ED), Arthralgia (ED) Additional Instructions: Recommend follow up with PCP. REturn to the ED for any fever, chills, nausea, vomitting, chest pain, knee pain, redness, swelling, stiffness, warmth, headache, rash, altered mental status, or any other concerning symptoms. Prescriptions: New naproxen 500 mg tablet 500 mg PO BID PRN (Reason: pain) 7 Days Qty: 14 0RF prednisone 20 mg tablet 40 mg PO DAILY 5 Days Qty: 10 0RF No Action quetiapine 25 mg tablet 25 mg PO BEDTIME gabapentin 600 mg tablet 600 mg PO TID trazodone 50 mg tablet 50 mg PO BEDTIME hydroxyzine HCl 50 mg tablet 50 mg PO TID amlodipine 10 mg tablet 10 mg PO DAILY losartan 25 mg tablet 25 mg PO DAILY montelukast 10 mg tablet 10 mg PO DAILY albuterol sulfate 90 mcg/actuation HFA aerosol inhaler 1 inh inhalation DAILY PRN (Reason: Shortness Of Breath Or Wheezing) Vraylar 6 mg capsule 6 mg PO DAILY sertraline 25 mg tablet 25 mg PO DAILY lamotrigine 200 mg tablet 200 mg PO DAILY lamotrigine [Lamictal] 100 mg tablet 100 mg PO DAILY doxycycline hyclate 100 mg capsule 100 mg PO BID Vraylar 6 mg capsule 6 mg PO DAILY methadone 40 mg tablet,soluble 40 mg PO DAILY Interventions: ED Discharge Assessment Last Done: 04/12/24 00:14 Discharge Date/Time: 04/12/24 00:15 Print Language: Norwegian
[2024-04-11 22:43] VITALS: BP 142/80; PULSE 53; RESP 12; TEMP 36.7; O2SAT 96
[2024-04-12 00:12] VITALS: BP 147/85; PULSE 63; RESP 14; TEMP 36.8; O2SAT 96
[2024-04-12 00:14] VITALS: BP 147/85; PULSE 63; RESP 14; TEMP 36.8; O2SAT 96
== END 2024-04-12 00:15 | disposition home or self-care (01) ==
PROVIDERS: Emergency Provider Emergency Medicine; PCP Internal Medicine
DX: M17.11 Unilateral primary osteoarthritis, right knee (principal); M25.561 Pain in right knee; F17.210 Nicotine dependence, cigarettes, uncomplicated
CPT/HCPCS: 73560; 99283; 99284

== ENCOUNTER 2024-06-22 11:11 | Outpatient (AMB) | payer MEDICARE, MEDICAID, SELFPAY ==
--- NOTE | 2024-06-22 11:20 | A.OFFVIS_ITS ---
Intake Visit Reasons: Add-On follow up due to new/worse LE discoloration Intake Note: Patient presents for feet discoloration. No other complaints. Allergies Penicillins [PENICILLINS] Allergy (Unknown, Verified 06/22/24 11:21) UNKNOWN risperidone [From RISPERDAL] Allergy (Unknown, Verified 06/22/24 11:21) UNKNOWN pregabalin [From Lyrica] Allergy (Verified 06/22/24 11:21) Unknown [place] Allergy (Mild, Uncoded 04/11/24 17:56) Unknown Mirtazapine Allergy (Mild, Uncoded 04/11/24 17:56) Unknown Nafcillin Allergy (Mild, Uncoded 04/11/24 17:56) rash From [place] Allergy (Unknown, Uncoded 04/11/24 17:56) UNKNOWN HPI HPI Add-On follow up due to new/worse LE discoloration: Details: Very pleasant 64-year-old gentleman presents for follow-up regarding peripheral vascular disease. He had a nonhealing 2nd toe amp which had gone on to heal. He continues to smoke about 4-5 cigarettes daily. He has had noninvasive testing on 03/10/2024 with no significant disease. Patient and family were concerned about discoloration of the lower extremities. It was more so on the dorsum of the foot and they became a little concerned about the overall situation. Now presents for follow-up re-evaluation. [facility] Medical History Bipolar disorder Aneurysm of descending thoracic aorta Hepatitis C Rheumatoid arthritis Active substance abuse HTN (hypertension) Arthritis Glaucoma Neuropathy Asthma Bipolar disorder Surgical History No pertinent past surgical history Social History Household Members: None Housing: Apartment Do you presently have visiting nurse or other home services: No Alcohol intake: current Alcohol intake frequency: a few times a month Patient Tobacco Use Status: Current someday Tobacco user Tobacco use type: Cigarette Cigarette Packs Per Day: 2 Cigarettes Per Day: 3 Years Smoked: 2 e-Cigarette/Vaping Use: Currently Using Second Hand Smoke Exposure: Yes Substance Use Type: Crack/Cocaine and Heroin Advance Directives Date on File: 10/09/23 service: No Review of Systems Const All systems reviewed & are unremarkable except as noted in HPI and below Reports no additional complaints ENT Reports Normal hearing present Card Denies chest pain, Denies chest pain at rest, Denies chest pain with activity and Denies pedal edema Resp Denies cough GI Denies abdominal pain Musc Denies abnormal gait, Denies muscle cramps and Denies radiating pain into limb Skin/Breast Denies skin ulcer and Denies wounds Neuro Reports Normal hearing present and Denies abnormal gait Psych Reports no additional complaints Physical Exam Const General: cooperative, healthy appearing and comfortable Orientation/consciousness: oriented to person, oriented to place and oriented to time HEENT Head: Yes normal to inspection Neck Neck: Yes normal visual inspection Carotids: no bruits Chest Chest palpation & inspection: normal inspection of the chest Resp Effort & Inspection: normal respiratory effort and able to speak in complete sentences Auscultation: clear to auscultation bilaterally, no crackles, no rales, no rhonchi and no wheezes Cardio Rate: regular rate Rhythm: regular rhythm Heart sounds: S1 normal heart sound present and S2 normal heart sound present Bruits: no carotid bruits Peripheral pulses: Peripheral pulses 2+ throughout GI Inspection: Yes normal to inspection Skin Other: Mild discoloration on dorsum of foot Wounds: no wounds Hair: normal Neuro General: oriented to person, oriented to place and oriented to time Cranial nerves: Yes CN's II-XII intact bilaterally and Yes Normal hearing present Cognition (Neuro): normal cognition Motor exam (neuro): 5/5 motor strength present throughout Extrem Other: venous exam: No significant superficial varicosities or spider telangiectasias, minimal edema General: No clubbing, No cyanosis and No edema Psych Appearance: grossly normal Mental Status: mental status grossly normal Speech and movement: Normal speech and movement present Assessment & Plan Assessment & Plan (1) PAD (peripheral artery disease): Comment: 08/12/2023 - left 2nd toe amp Code(s): I73.9 - Peripheral vascular disease, unspecified Category: Medical Plan: In short patient has foot is stable. I did provide reassurance to the family that this is normal findings. Continue conservative care and ambulation. We did discuss routine risk factor modification. He will follow up with us for his routinely scheduled annual surveillance follow-up. Thank you for allowing us to assist in his care. If there are any questions or concerns please do not hesitate to contact us. Please note a longitudinal relationship has been created with the patient and we have been following and surveillance this chronic condition. Coding Level of Care Code Est Pt Level 3 (60529) Complex EM visit Add On G2211 Diagnoses PAD (peripheral artery disease) I73.9
== END 2024-06-22 11:40 | disposition home or self-care (01) ==
PROVIDERS: PCP Internal Medicine; Visit Provider Surgery Vascular Surgery
DX: I73.9 Peripheral vascular disease, unspecified (principal)
CPT/HCPCS: 99213; G2211

== ENCOUNTER → 2024-06-22 11:11 | Outpatient (BNVA) | payer MEDICARE, SELFPAY | PROVIDERS: PCP Internal Medicine; Visit Provider Surgery Vascular Surgery | DX: I73.9 Peripheral vascular disease, unspecified (principal) | CPT/HCPCS: 99212 ==

== ENCOUNTER 2024-10-27 12:27 | Outpatient (REF) | payer MEDICARE, MEDICAID, SELFPAY ==
[2024-10-27 13:19] LABS: Ammonia 51 umol/L (13-55)
[2024-10-27 13:56] LABS: Anion Gap 8 (12-20); Blood Urea Nitrogen 18 mg/dL (9-16); Calcium 8.8 mg/dL (8.4-10.2); Carbon Dioxide 27 mmol/L (22-29); Chloride 110 mmol/L (96-108); Estimated Glomerular Filt Rate > 60; Glucose Random 103 mg/dL (60-115); Potassium 4.7 mmol/L (3.3-5.1); Sodium 140 mmol/L (135-145)
== END 2024-10-27 12:28 | disposition home or self-care (01) ==
LOC: HO.LAB 12:27
PROVIDERS: PCP Internal Medicine; Visit Provider Psychiatry & Neurology Neurology
DX: G93.40 Encephalopathy, unspecified (principal)
CPT/HCPCS: 36415; 80048; 80175; 82140

== ENCOUNTER 2025-03-28 08:45 | Outpatient (AMB) | payer MEDICARE, MEDICAID, SELFPAY ==
--- NOTE | 2025-03-28 08:49 | MHC.OFFVIS ---
Intake Visit Reasons: 2 month f/u Allergies Penicillins (PENICILLINS) Allergy (Unknown, Verified 06/22/24 11:21) UNKNOWN risperidone (From RISPERDAL) Allergy (Unknown, Verified 06/22/24 11:21) UNKNOWN benztropine (From Cogentin) Allergy (Verified 03/23/25 17:35) Unknown lithium Allergy (Verified 03/23/25 17:35) Unknown mirtazapine (From Remeron) Allergy (Verified 03/23/25 17:35) Unknown pregabalin (From Lyrica) Allergy (Verified 06/22/24 11:21) Unknown ziprasidone (From Geodon) Allergy (Verified 03/23/25 17:36) Unknown Mirtazapine Allergy (Mild, Uncoded 04/11/24 17:56) Unknown Nafcillin Allergy (Mild, Uncoded 04/11/24 17:56) rash Medication List - Last Reconciled 03/28/25 by Zhou Tucker MD albuterol sulfate 90 mcg/actuation 1 inh inhalation DAILY PRN amlodipine 10 mg PO DAILY apixaban (Eliquis) 5 mg PO BID cariprazine (Vraylar) 6 mg PO DAILY cariprazine (Vraylar) 6 mg PO DAILY clonidine HCl 0.2 mg PO TID PRN fluticasone propionate 50 mcg/actuation (Flonase Allergy Relief) 2 sprays intranasal DAILY gabapentin 600 mg PO TID hydroxyzine HCl 50 mg PO TID lamotrigine (Lamictal) 100 mg PO DAILY lamotrigine 200 mg PO DAILY losartan 25 mg PO DAILY methadone 40 mg PO DAILY mometasone-formoterol 200-5 mcg/actuation (Dulera) 2 puffs inhalation BID montelukast 10 mg PO DAILY prednisone 20 mg PO DAILY pyridostigmine bromide 60 mg PO TID quetiapine 25 mg PO BEDTIME nemxyuskfb-jqiuavrn-edefduvnzs 400-100-100 mg (Vosevi) 1 tab PO DAILY trazodone 50 mg PO BEDTIME HPI Comments Details: 65 yo man with asthma, HTN, bipolar disorder, peripheral neuropathy, and antibody negative myasthenia gravis causing ptosis, double vision, and generalized weakness. He also c/o difficulty breathing but he also has COPD and asthma. He had IV Ig that did not help that much. Breathing was not that bad. He was still seeing double. Swallowing difficulty was still present. Overall strength was not as good. He was anxious and had not seen his psychiatrist for a while. [facility] Medical History (Updated 03/28/25 @ 08:56 by Zhou Tucker MD) Gout GERD (gastroesophageal reflux disease) HLD (hyperlipidemia) Cirrhosis Depression Peripheral neuropathy Hypersomnia MG with thymoma (myasthena gravis) Encephalopathy Bipolar disorder Aneurysm of descending thoracic aorta Hepatitis C Rheumatoid arthritis Active substance abuse HTN (hypertension) Arthritis Glaucoma Neuropathy Asthma Bipolar disorder Surgical History No pertinent past surgical history Social History Household Members: None Housing: Apartment Do you presently have visiting nurse or other home services: No Alcohol intake: current Alcohol intake frequency: a few times a month Patient Tobacco Use Status: Current someday Tobacco user Tobacco use type: Cigarette Cigarette Packs Per Day: 2 Cigarettes Per Day: 3 Years Smoked: 2 e-Cigarette/Vaping Use: Currently Using Second Hand Smoke Exposure: Yes Substance Use Type: Crack/Cocaine and Heroin Advance Directives Date on File: 10/09/23 service: No Review of Systems Const Details: Constitutional:?No fever, chills, fatigue, weight loss, or night sweats. HEENT:?No headache, vision changes, hearing loss, nasal congestion, sore throat. Neurological:?No dizziness, syncope, seizures, numbness, tingling, tremors, memory loss. Psychiatric:?c/o anxiety. Endocrine:?No heat/cold intolerance, polydipsia, polyuria, or hair/skin changes. Hematologic/Lymphatic:?No easy bruising, bleeding, or lymphadenopathy. Integumentary (Skin):?No rash, lesions, itching, or color changes. ? Physical Exam Neuro Other: Mental Status: Alert and oriented to person, place, and time. Normal attention. Normal spontaneous speech, fluency, and comprehension. No obvious issues with mood and memory. Affect is appropriate. Cranial Nerves: CN II: Visual paredes full to confrontation, visual acuity intact. CN III, IV, : Pupils equal, round, reactive to light and accommodation. Extraocular movements are normal. CN V: Facial sensation is normal. CN VII: Facial movements symmetrical. CN VIII: Hearing intact to bedside conversation is normal. CN IX, X: Palate elevates symmetrically. CN XI: Shoulder shrug and head turn symmetrical. CN XII: Tongue midline without atrophy or fasciculations. Motor: Bulk and tone normal in all extremities. No significant muscle weakness in arms and legs. No drift. Reflexes: Deep tendon reflexes 2+ and symmetric. Plantar response down-going bilaterally. Coordination: Fhibbw-ob-oric and jcao-ad-ivha testing normal. No dysmetria. Gait and Station: No obvious gait abnormality. No ataxia or instability. Sensory: Intact to light touch, pinprick, and vibration. Romberg is negative. Extrapyramidal: Full facial expressions and blinking. No rigidity. Movements are appropriate with no tremor or abnormality. Speech: Normal; no dysarthria or tremor. Assessment & Plan Assessment & Plan (1) Myasthenia gravis: Comment: CT brain WO at [facility] in Dec 2023: Nasal bone fracture (reported) CT Chest at [facility] in Dec 2023: 4.4 cm AAA MRI brain WO at [facility] in January 2024: Mild WM changes (reported) Acetylcholine receptor Abs (blocking, binding, modulating) at [facility] in February 2024: WNL Anti MUSK at [facility] in February 2024: WNL. Code(s): G70.00 - Myasthenia gravis without (acute) exacerbation Category: Medical (2) Peripheral neuropathy: Code(s): G62.9 - Polyneuropathy, unspecified Category: Medical Qualifiers: Peripheral neuropathy type: polyneuropathy, unspecified Qualified Code(s): G62.9 - Polyneuropathy, unspecified Plan Myasthenia gravis: Dose of prednisone was decreased to 15 mg a day. I would try another course of IVIG in a month time. Peripheral neuropathy: EMG nerve conduction study was arranged to classify in great neuropathy. In the meantime he can continue to take gabapentin as needed, which he has been taking for years. Coding Level of Care Code Est Pt Level 4 (37861) Diagnoses Myasthenia gravis G70.00 Peripheral polyneuropathy G62.9 Peripheral neuropathy type: polyneuropathy, unspecified
--- OUTSIDE RECORDS SUMMARY | 2025-03-28 08:58 | XMS_ITS | Clinical Summary ---
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 Active lamoTRIgine (LaMICtal) 200 mg tablet 200 IN THE AM, 300 IN THE PM Active montelukast (SINGULAIR) 10 mg tablet Take 1 tablet (10 mg total) by mouth at bedtime. Active albuterol HFA (PROAIR HFA ; PROVENTIL HFA ; VENTOLIN HFA) 90 mcg/actuation inhaler Sig - Route: take 2 puffs qid or as needed / needs office visit - Inhalation Active cariprazine (Vraylar) 1.5 mg (1)- 3 mg (6) capsule,dose pack Take by mouth. 7.5 MG DAILY Active amLODIPine (NORVASC) 10 mg tablet Take by mouth 1 (one) time each day. Active apixaban (ELIQUIS) 5 mg tablet Take 1 tablet (5 mg total) by mouth 2 (two) times a day. Active cloNIDine (CATAPRES) 0.2 mg tablet Take 1 tablet (0.2 mg total) by mouth 2 (two) times a day. Active mometasone-form oterol (Dulera) 200-5 mcg/actuation inhaler Inhale 2 puffs by mouth 2 (two) times a day. Rinse mouth with water after use to reduce aftertaste and incidence of candidiasis. Do not swallow. Active losartan (COZAAR) 25 mg tablet Take 2 tablets (50 mg total) by mouth at bedtime. Active pyRIDostigmine (MESTINON) 60 mg tablet Take 1 tablet (60 mg total) by mouth 3 (three) times a day. Active atorvastatin (LIPITOR) 40 mg tablet Take 1 tablet (40 mg total) by mouth at bedtime. Active predniSONE (DELTASONE) 20 mg tablet Take 1 tablet (20 mg total) by mouth 1 (one) time each day. Active ipratropium (ATROVENT) 21 mcg (0.03 %) nasal spray Administer 2 sprays into each nostril every 12 (twelve) hours. Active methadone HCl (METHADONE ORAL) Take by mouth. 38 IN THE AM/36 IN THE PM Active Active Problems Problem Noted Date Diagnosed Date Nonrheumatic mitral valve regurgitation 12/14/19 25 Assessment & Plan (12/13/2024 12:42 PM EDT): During recent hospitalization, echocardiogram revealed mitral valve prolapse with torn mitral cord and severe mitral regurgitation. When compared with the echocardiogram report from [facility] [place] 09/27/23, this shows progression of known disease. Discussed updating OLIVER with patient and sister. He denies any esophageal varices, strictures and dysphagia. Discussed risks and benefits of the procedure. He is agreeable to proceeding. They are aware we will be in contact with the results of the OLIVER and plan going forward once available. He appears compensated on exam and would be cautious with increased diuretic therapy given borderline soft blood pressures. Patient is encouraged to follow a low- sodium, heart healthy diet, monitor daily weights and contact provider with any sudden increases such as 2 lbs overnight or 4-5 lbs over the course of a week, and/or for worsening shortness of breath and/or increased lower extremity edema. Hypertension 12/09/2024 Assessment & Plan (12/13/2024 12:40 PM EDT): BP is 106/70 without symptoms of lightheadedness or near-syncope. No changes for now, continue with amlodipine, clonidine and losartan as prescribed. Hyperlipidemia 12/09/2024 Acute hypoxic respiratory fa ilure ([facility], [facility] V28) 12/09/2024 COPD (chronic obstructive pu lmonary disease) ([facility], [facility]) 12/09/2024 Cirrhosis ([facility], [facility] V[facility]) 12/09/2024 Myasthenia gravis ([facility], [facility] V[facility]) Hypersomnia 12/09/2024 Pulmonary embolus, left ([facility], [facility] V2 8) 12/09/2024 Asthma exacerbation 12/09/2024 Elevated troponin 12/09/2024 Pancytopenia ([facility], [facility] V[facility]) 12/10/19 Alcohol abuse 11/22/2024 Allergic rhinitis 11/22/2024 Depressive disorder 11/22/2024 Gout 11/22/2024 Hepatitis C 11/22/2024 Hypothyroidism 11/22/2024 Schizophreniform disorder ([facility], [facility] V28) 11/22/2024 Encounters Date Type Department Care Team Description 03/07/2025 Telephone [facility] Cardiology [facility] [address] [place] [address] John Le MD Weight Gain 2025 Telephone [facility] Cardiology [facility] [address] [place] [address] Neftaly Mcintyre NP Referral (Cardiothoracic Surgery) 01/25/2025 Telephone [facility] Cardiology [facility] [address] [place] [address] Mariano Stevenson MD Appointment 01/03/2025 2:23 PM EDT Anesthesia Event [facility] Cardiac Supervisor Nuclear Medicine [address] [place] [phone] Jimbo Damian MD Pierce, Trudy A, CRNA 01/03/2025 12:08 PM EDT - 01/03/2025 11:59 PM EDT Hospital Encounter [facility] Cardiac Supervisor Nuclear Medicine [address] [place] [address] Geo Prieto MD Pierce, Trudy A, CRNA Chang, Daniel J, MD Nonrheumatic mitral valve regurgitation Discharge Disposition: Home or Self Care from Last 3 Months Immunizations Name Administration Dates Next Due Influenza, Unspecified 06/24/2005 Pneumococcal polysaccharide 23 valent (Pneumovax 23) 2yo and older 07/05/2004 Medical History Medical History Date Comments Anxiety Bipolar disorder ([facility], [facility]) Rheumatoid arthritis ([facility], [facility]) Gout Substance abuse ([facility], [facility] V[facility]) Social History Tobacco Use Types Packs/Day Years Used Date Smoking Tobacco: Every Day Cigarettes Smokeless Tobacco: Never Tobacco Cessation:Ready to Q uit: Not Asked; Counseling Given: Not Answered Alcohol Use Standard Drinks/Week Comments Not Currently 0 (1 standard drink = 0.6 oz pur e alcohol) Sex and Gender Information Value Date Recorded Sex Assigned at Male 12/30/2024 2:41 PM EDT Legal Sex Male 3:05 AM EST Gender Identity Male 12/30/2024 2:41 PM EDT Sexual Orientation Straight 12/30/2024 2: 41 PM EDT Obstetrics History Last Filed Vital Signs Vital Sign Reading Time Taken Comments Blood Pressure 112/79 01/03/2025 4:00 PM EDT Pulse 60 01/03/2025 4:00 PM EDT Temperature 36.9 C (98.4 F) 01/03/2025 12:16 PM EDT Respiratory Rate 15 01/03/2025 4:00 PM EDT Oxygen Saturation 96% 01/03/2025 3:38 PM EDT Inhaled Oxygen Concentration - - Weight 86.2 kg (190 lb) 01/03/2025 12:16 PM EDT Height 188 cm (6' 2 ) 01/03/2025 12:16 PM EDT Body Mass Index 24.39 01/03/2025 12:16 PM EDT Plan of Treatment Upcoming Encounters Date Type Department Care Team (Late st Contact Info) Description 03/31/2025 8:30 AM EDT Consult Vascular Surgery - [place] [address] [place] [address] Jam Montez MD [address] [place] [id number] [place] [address] Health Maintenance Due Date Last Done Comments Hepatitis A Vaccines (1 of 2 - Risk 2-dose series) 1978 Zoster Vaccines (1 of 2) 2009 Hepatitis B Vaccines (1 of 3 - Risk 3-dose series) 2019 RSV Immunization Adult Patients (1 - Risk 60-74 years 1-dose series) 2019 COVID-19 Vaccine (1 - 2023-2 5 season) 2024 Abdominal Aortic Aneurysm (AAA) Screen 11/18/2024 Cholesterol Screening (Lipid Panel) 11/18/2024 08/28/2005 Colorectal Cancer Screening: Colonoscopy 11/18/2024 Depression Screening 11/18/2024 Falls Risk Assessment 11/18/2024 Medicare Annual Wellness Visit 11/18/2024 Social Influencers of Health Screening 11/18/2024 Influenza Vaccine (#1) 2025 , 10/01/2018, 06/24/2005 Pneumococcal Vaccine: 50+ Years (2 of 2 - PCV) 06/25/2025 06/25/2024, 05/13/2018, 07/05/2004 Hypertension/CHF/CAD Annual BMP Blood Test 12/30/2025 12/30/2024, 05/14/2007 DTaP,Tdap,and Td Vaccines (2 - Td or Tdap) 07/10/2031 07/10/2021 Hepatitis C Screening Completed 11/25/2005 HIB Vaccines Aged Out No longer eligi ble based on patient's age to complete this topic HPV Vaccines Aged Out No longer eligi ble based on patient's age to complete this topic IPV Vaccines Aged Out No longer eligi ble based on patient's age to complete this topic MMR Vaccines Aged Out No longer eligi ble based on patient's age to complete this topic Meningococcal ACWY Vaccine Aged Out N o longer eligible based on patient's age to complete this topic Meningococcal B Vaccine Aged Out No l onger eligible based on patient's age to complete this topic RSV Immunization Patients Under 20 months Aged Out No longer eligible b ased on patient's age to complete this topic Varicella Vaccines Aged Out No longer eligible based on patient's age to complete this topic Procedures Procedure Name Priority Date/Time Associated Diagnosis Comments OLIVER COMPLETE W/COLOR FLOW AND SPECTRAL DOPPLER Routine 01/03/2025 3:16 PM EDT Nonrheumatic mitral valve regurgitation CBC WITH AUTO DIFFERENTIAL Routine 12/30/2024 11:25 AM EDT Nonrheumatic mitral valve regurgitation PROTHROMBIN TIME WITH INR Routine 12/30/2024 11:25 AM EDT Nonrheumatic mitral valve regurgitation CBC AND DIFFERENTIAL Routine 12/30/2024 11:25 AM EDT Nonrheumatic mitral valve regurgitation BASIC METABOLIC PANEL Routine 12/30/2024 11:25 AM EDT Nonrheumatic mitral valve regurgitation HM HEPATITIS C SCREENING Routine 11/25/2005 LIPID PANEL Routine 08/28/2005 from Last 3 Months or Most Recently Relevant to Health Maintenance Results * OLIVER COMPLETE W/COLOR FLOW AND SPECTRAL DOPPLER (01/03/2025 3:16 PM EDT) BSA 2.12 m2 CV PACS MR PISA Nyquist Scottie 39 cm/s CV PACS PISA MR Radius 0.90 cm CV PACS MR VTI 171.0 cm CV PACS MR PISA Max Velocity 5.3 m/s CV PACS MR Peak Gradient 112 mmHg CV PACS PISA MR EROA 0.55 cm2 CV PACS PISA Regurgitant Volume 94 mL CV PACS LA Appendage Velocity 61 cm/s CV PACS Aortic Root 4.2 cm CV PACS Aortic Root Index 1.97 cm/m2 CV PACS Ascending Aorta 4.4 cm CV PACS Ascending Aorta Index 2.07 cm/m2 CV PACS Anatomical Region Laterality Modality X-Ray Angiograph y Narrative 01/05/2025 8:08 PM EDT Left ventricle cavity size is normal. Left ventricular systolic function is in the normal range with an ejection fraction of 55-60%. No regional LV wall motion abnormalities noted. Right Atrium: There is a prominent Eustachian valve vs Chiari network noted in the right atrium. Mitral Valve: The medial segment (A3) of the anterior leaflet is mildly prolapsed. The medial scallop (P3) of the posterior leaflet is mildly prolapsed. The posterior leaflet has a flail involving the middle (P2) scallop. Ruptured mitral chordae associated to the P2 scallop. There is severe regurgitation with an anteriorly directed jet. Aorta: Normal aortic root diameter. The ascending aorta is mildly dilated (4.4 cm). Left Ventricle Left ventricle cavity size is normal. There is evidence of mild left ventricular concentric hypertrophy. Systolic function is normal with an ejection fraction of 55-60%. There are no regional LV wall motion abnormalities. Unable to assess diastolic function. Right Ventricle The right ventricular appears to be grossly normal in size on limited views. The right ventricular function appears to be grossly normal. Left Atrium The left atrium is grossly dilated. The pulmonary veins demonstrate systolic flow reversal. The atrial appendage velocity is normal (greater than 40 cm/sec). There is no thrombus in the left atrial appendage. Right Atrium The right atrium appears to be grossly normal in size on limited views. There is a prominent Eustachian valve vs Chiari network noted in the right atrium. Mitral Valve The leaflets are mildly thickened. There is mild annular calcification. The medial segment (A3) of the anterior leaflet is mildly prolapsed. The medial scallop (P3) of the posterior leaflet is mildly prolapsed. The posterior leaflet has a flail involving the middle (P2) scallop. Ruptured mitral chordae associated to the P2 scallop. There is mild thickening of the anterior leaflet subvalvular apparatus at the tip. There is severe regurgitation with an anteriorly directed jet. There is no evidence of mitral valve stenosis. Tricuspid Valve The tricuspid valve was not well visualized. The leaflets are mildly thickened. Tricuspid annular calcification noted. There is trace regurgitation. Tricuspid valve was noted to be opening well. Aortic Valve The aortic valve is trileaflet. The leaflets are mildly thickened. There is no regurgitation. The aortic valve is opening well. Pulmonic Valve There is trace pulmonic valve regurgitation. Pulmonic valve was noted to be opening well. Ascending Aorta Normal aortic root diameter. The ascending aorta is mildly dilated (4.4 cm). Pericardium Pericardium appears normal. There is no pericardial effusion. Study Details Overall the study quality was adequate. A transesophogeal echo was performed using 3D imaging with postprocessing performed on an independent workstation. The probe was inserted by the software packager. There was no probe insertion difficulty. by anesthesia. Estimated blood loss: no blood loss. No specimens were collected. Clinical Background 64 years old male patient was referred for a transesophageal echocardiogram for evaluation of mitral valve valve regurgitation Procedure Details Procedure: Transesophageal echocardiogram Indication: Mitral Regurgitation Contraindication: None Anesthesia: Intravenous medications for sedation were administered by the anesthesia service. Procedure description: The patient was referred for a transesophageal echocardiogram for evaluation of his mitral valve insufficiency. The patient does not have any history of neck surgeries, radiation to the neck, dysphagia, hiatal hernias, recent upper GI bleeding, recent upper gastrointestinal surgery, or thrombocytopenia. I explained the procedure to the patient and we discussed the benefits and risks of the procedure. Specifically, I discussed the possible procedural complications of a OLIVER which include: Esophageal rupture/perforation, gastric rupture/perforation, GI bleed, gastric rupture/perforation, laryngospasm/bronchospasm, aspiration, or dental injuries. After the conversation, the patient agreed to undergo the procedure. An appropriate timeout was performed in the presence of the anesthesia and nursing services. The patient was monitored with a surveillance system monitor, blood pressure monitor, and oxygen saturation monitoring throughout the procedure. Sedation was provided by the anesthesia service. The OLIVER probe was inserted without complications. A complete transesophageal echocardiogram study was performed (report about findings will be done separately). The probe was retrieved without complications. After the patient regained consciousness, I explained the findings to the patient and his sister. The patient was successfully monitored in the recovery unit and was discharged home in a stable manner. Postprocedure instructions: Before the patient was discharged, I had an extensive conversation with the patient and his sister regarding the warning signs that should prompt an urgent evaluation in the emergency room. Specifically, I told the patient to come to the emergency room immediately if the patient noticed any of the following symptoms at home: chest discomfort, shortness of breath, dysphagia, odynophagia, throat discomfort, or bleeding Disposition: Discharge home. Hortencia Pompa NP CV ECHO PROCEDURES Final Result * (ABNORMAL) CBC auto differential (12/30/2024 11:25 AM EDT) [facility] WBC 6.1 4.8 - 10.8 K/mcL LAB HEMETOLOGY METHOD 12/30/2024 1:08 PM [facility] RBC 4.00(L) 4.50 - 5.50 M/mcL LAB HEMETOLOGY METHOD 12/30/2024 1:08 PM [facility] Hemoglobin 12.0(L) 13.5 - 17.5 g/dL LAB HEMETOLOGY METHOD 12/30/2024 1:08 PM [facility] Hematocrit 37.0(L) 42.0 - 54.0 % LAB HEMETOLOGY METHOD 12/30/2024 1:08 PM [facility] MCV 92.7 79.0 - 98.0 FL LAB HEMETOLOGY METHOD 12/30/2024 1:08 PM [facility] MCH 30.1 27.0 - 32.0 pcg LAB HEMETOLOGY METHOD 12/30/2024 1:08 PM [facility] MCHC 32.4 32.0 - 37.0 g/dL LAB HEMETOLOGY METHOD 12/30/2024 1:08 PM [facility] RDW 15.1(H) 11.0 - 15.0 % LAB HEMETOLOGY METHOD 12/30/2024 1:08 PM [facility] Platelets 108(L) 130 - 400 K/mcL LAB HEMETOLOGY METHOD 12/30/2024 1:08 PM [facility] MPV 9.5 7.0 - 11.0 FL LAB HEMETOLOGY METHOD 12/30/2024 1:08 PM [facility] NRBC 0.0 <1.0 % LAB HEMETOLOGY METHOD 12/30/2024 1:08 PM [facility] NRBC Absolute 0.00 <0.10 K/mcL LAB HEMETOLOGY METHOD 12/30/2024 1:08 PM [facility] Neutrophils Relative 72.0 % LAB HEMETOLOGY METHOD 12/30/2024 1:08 PM [facility] Lymphocytes Relative 18.1 % LAB HEMETOLOGY METHOD 12/30/2024 1:08 PM [facility] Monocytes Relative 5.9 % LAB HEMETOLOGY METHOD 12/30/2024 1:08 PM [facility] Eosinophils Relative 2.8 % LAB HEMETOLOGY METHOD 12/30/2024 1:08 PM [facility] Basophils Relative 0.5 % LAB HEMETOLOGY METHOD 12/30/2024 1:08 PM [facility] Immature Granulocytes Relative 0.7 % LAB HEMETOLOGY METHOD 12/30/2024 1:08 PM [facility] Neutrophils Absolute 4.37 1.50 - 7.00 K/mcL LAB HEMETOLOGY METHOD 12/30/2024 1:08 PM [facility] Lymphocytes Absolute 1.10 1.00 - 5.00 K/mcL LAB HEMETOLOGY METHOD 12/30/2024 1:08 PM [facility] Monocytes Absolute 0.36 0.20 - 1.00 K/mcL LAB HEMETOLOGY METHOD 12/30/2024 1:08 PM [facility] Eosinophils Absolute 0.17 0.00 - 0.50 K/mcL LAB HEMETOLOGY METHOD 12/30/2024 1:08 PM [facility] Basophils Absolute 0.03 0.00 - 0.20 K/mcL LAB HEMETOLOGY METHOD 12/30/2024 1:[address] [facility] Immature Granulocytes Absolute 0.04(H) 0.00 - 0.03 K/mcL LAB HEMETOLOGY METHOD 12/30/2024 1:[address] [facility] Blood Venous blood specimen / Unknown Venipuncture / Unknown 12/30/2024 11:25 AM EDT 12/30/2024 12:10 PM EDT Neftaly Mcintyre NP LAB BLOOD ORDERABLES Final Result Performing Organization Address City/[facility]/ZIP Co de Phone Number [facility] [address] [place] [address], [place] [phone] * (ABNORMAL) Prothrombin time with INR (12/30/2024 11:25 AM EDT) Protime 14.0(H) 10.6 - 13.9 sec LAB COAGULATION METHOD 12/30/2024 12:[address] [facility] INR 1.1 LAB COAGULATION METHOD 12/30/2024 12:[address] [facility] Blood Venous blood specimen / Unknown Venipuncture / Unknown 12/30/2024 11:25 AM EDT 12/30/2024 12:10 PM EDT us Neftaly Mcintyre NP LAB BLOOD ORDERABLES Final Result [facility] [address] [place] [address], [place] [phone] * (ABNORMAL) Basic metabolic panel (12/30/2024 11:25 AM EDT) Sodium 138 133 - 145 mmol/L LAB CHEMISTRY METHOD 12/30/2024 1:[address] [facility] Potassium 3.9 3.5 - 5.5 mmol/L LAB CHEMISTRY METHOD 12/30/2024 1:[address] [facility] Chloride 104 96 - 110 mmol/L LAB CHEMISTRY METHOD 12/30/2024 1:16 PM [facility] CO2 29 21 - 32 mmol/L LAB CHEMISTRY METHOD 12/30/2024 1:16 PM [facility] Anion Gap 5 3 - 11 LAB CHEMISTRY METHOD 12/30/2024 1:16 PM [facility] Glucose 111(H) 70 - 100 mg/dL LAB CHEMISTRY METHOD 12/30/2024 1:16 PM [facility] BUN 22 5 - 25 mg/dL LAB CHEMISTRY METHOD 12/30/2024 1:16 PM [facility] Creatinine 1.65(H) 0.70 - 1.30 mg/dL LAB CHEMISTRY METHOD 12/30/2024 1:16 PM [facility] eGFR 46(L) >=60 mL/min/1. 73m2 LAB CHEMISTRY METHOD 12/30/2024 1:16 PM [facility] Comment:Calculation based on the Chronic Kidney Disease Epidemiology Collaboration (CKD-EPI) equation refit without adjustment for race. BUN/Creatinine Ratio 13.3 LAB CHEMISTRY METHOD 12/30/2024 1:16 PM [facility] Calcium 9.2 8.5 - 10.5 mg/dL LAB CHEMISTRY METHOD 12/30/2024 1:16 PM [facility] Blood Venous blood specimen / Unknown Venipuncture / Unknown 12/30/2024 11:25 AM EDT 12/30/2024 12:11 PM EDT us Neftaly Mcintyre NP LAB BLOOD ORDERABLES Final Result [facility] [address] [place] [address], * Hepatitis C Screening (11/25/2005) Hepatitis C Screening abstracted Historical Provider HEALTH MAINTENANCE Final Result * (ABNORMAL) Lipid panel (08/28/2005) LDL/HDL Ratio 3 0 - 4 Triglycerides 201(A) 0 - 150 mg/dL Cholesterol 192 0 - 200 mg/dL HDL 58 >=40 mg/dL LDL Cholesterol 94 0 - 100 mg/dL Blood Venous blood specimen / Unknown Historical Provider LAB BLOOD ORDERABLES Audrey l Result from Last 3 Months or Most Recently Relevant to Health Maintenance Insurance MEDICAID - [place] MEDICARE Care Teams Automobile Upholsterer Relationship Specialty Start Date End Date Pushpa Alonzo MD [address] [place] [phone] PCP - General Internal Medicine 12/13/24
== END 2025-03-28 09:06 | disposition home or self-care (01) ==
LOC: HO.HSM 08:46
PROVIDERS: PCP Internal Medicine; Visit Provider Psychiatry & Neurology Neurology
DX: G70.00 Myasthenia gravis without (acute) exacerbation (principal); G62.9 Polyneuropathy, unspecified
CPT/HCPCS: 99214

== ENCOUNTER → 2025-03-28 08:45 | Outpatient (BNVA) | payer MEDICARE, MEDICAID, SELFPAY | PROVIDERS: PCP Internal Medicine; Visit Provider Psychiatry & Neurology Neurology | DX: G70.00 Myasthenia gravis without (acute) exacerbation (principal); G62.9 Polyneuropathy, unspecified; Z79.01 Long term (current) use of anticoagulants; F11.90 Opioid use, unspecified, uncomplicated; Z79.52 Long term (current) use of systemic steroids; Z79.899 Other long term (current) drug therapy | CPT/HCPCS: 99212 ==

== ENCOUNTER 2025-05-12 14:28 | Outpatient (REF) | payer MEDICARE, MEDICAID, SELFPAY ==
--- NOTE | ~2025-05-12 | US_ITS ---
EXAMINATION: Noninvasive assessment of the bilateral lower extremities with ARTERIAL DUPLEX, ANKLE BRACHIAL INDICES (ABIs), and PULSE VOLUME RECORDINGS (PVRs). CLINICAL INFORMATION: Peripheral vascular disease. TECHNIQUE: Duplex Doppler techniques with waveform analysis and measurement of velocities in the bilateral common femoral, profunda femoris, superficial femoral, popliteal and tibial arteries were performed. Additionally, ankle pulse volume recordings, ankle pressure measurements and ankle brachial indices were obtained of the lower extremity arterial system bilaterally. The study was performed only at rest. COMPARISON: March 10, 2024 FINDINGS: DIRECT DUPLEX DOPPLER FINDINGS: RIGHT LEG: Common femoral artery: 103 cm/s, phasicity: Triphasic. There is an approximately 1 cm anechoic abnormality with the color flow on Doppler examination anterior to the common femoral artery. There is approximately 2 cm lobulated anechoic abnormality adjacent without flow on color Doppler interrogation. Profunda femoris artery: 48 cm/s, phasicity: Triphasic Superficial femoral artery (proximal): 98 cm/s, phasicity: Triphasic Superficial femoral artery (mid): 83 cm/s, phasicity: Triphasic Superficial femoral artery (distal): 85 cm/s, phasicity: Triphasic Popliteal artery: 49 cm/s, phasicity: Triphasic Posterior tibial artery: 94 cm/s, phasicity: Triphasic. Peroneal artery: 50 cm/s, phasicity: Triphasic. Anterior tibial artery: 50 cm/s, phasicity: Triphasic. Dorsalis pedis artery: 39 cm/s, phasicity:Triphasic. LEFT LEG: Common femoral artery: 132 cm/s, phasicity: Triphasic Profunda femoris artery: 72 cm/s, phasicity: Triphasic Superficial femoral artery (proximal): 109 cm/s, phasicity: Triphasic Superficial femoral artery (mid): 110 cm/s, phasicity: Triphasic Superficial femoral artery (distal): 79 cm/s, phasicity: Triphasic Popliteal artery: 70 cm/s, phasicity: Triphasic Posterior tibial artery: 114 cm/s, phasicity: Triphasic Peroneal artery: 37 cm/s, phasicity: Triphasic Anterior tibial artery: 49 cm/s, phasicity: Triphasic Dorsalis pedis artery: 41 cm/s, phasicity: Triphasic. BRACHIAL PRESSURES: Right: 146 Left: 146 ANKLE PRESSURES: Right: PT 178, DP 170 Left: PT 178, DP 178 ANKLE-BRACHIAL INDEX: Right: 1.22 Left: 1.22 ANKLE PVR WAVEFORMS: Right: Normal Left: Normal US/US SAMANTHA complete IMPRESSION: Right le cm pseudoaneurysm, right common femoral artery, with associated 2 cm hematoma. Normal peak systolic velocities and waveforms throughout the interrogated arteries.. Left leg: Normal PICC systolic velocity and waveforms throughout the interrogated arteries. Findings were communicated by the dental technologist via [employer] connect to Dr. Aureliano Shah on May 12, 2025 at 3:29 PM. SAMANTHA Reference: - >1.4 = calcified vessels - 0.9 - 1.4 = normal - no significant arterial disease - 0.7 - 0.89 = mild peripheral arterial disease - 0.51 - 0.69 = moderate peripheral arterial disease - 0.50 = severe peripheral arterial disease - < .30 = critical arterial disease Electronically signed by: Kenroy Carbajal MD 05/13/2025 10:59 AM EDT
--- NOTE | ~2025-05-12 | US_ITS ---
EXAMINATION: Noninvasive assessment of the bilateral lower extremities with ARTERIAL DUPLEX, ANKLE BRACHIAL INDICES (ABIs), and PULSE VOLUME RECORDINGS (PVRs). CLINICAL INFORMATION: Peripheral vascular disease. TECHNIQUE: Duplex Doppler techniques with waveform analysis and measurement of velocities in the bilateral common femoral, profunda femoris, superficial femoral, popliteal and tibial arteries were performed. Additionally, ankle pulse volume recordings, ankle pressure measurements and ankle brachial indices were obtained of the lower extremity arterial system bilaterally. The study was performed only at rest. COMPARISON: March 10, 2024 FINDINGS: DIRECT DUPLEX DOPPLER FINDINGS: RIGHT LEG: Common femoral artery: 103 cm/s, phasicity: Triphasic. There is an approximately 1 cm anechoic abnormality with the color flow on Doppler examination anterior to the common femoral artery. There is approximately 2 cm lobulated anechoic abnormality adjacent without flow on color Doppler interrogation. Profunda femoris artery: 48 cm/s, phasicity: Triphasic Superficial femoral artery (proximal): 98 cm/s, phasicity: Triphasic Superficial femoral artery (mid): 83 cm/s, phasicity: Triphasic Superficial femoral artery (distal): 85 cm/s, phasicity: Triphasic Popliteal artery: 49 cm/s, phasicity: Triphasic Posterior tibial artery: 94 cm/s, phasicity: Triphasic. Peroneal artery: 50 cm/s, phasicity: Triphasic. Anterior tibial artery: 50 cm/s, phasicity: Triphasic. Dorsalis pedis artery: 39 cm/s, phasicity:Triphasic. LEFT LEG: Common femoral artery: 132 cm/s, phasicity: Triphasic Profunda femoris artery: 72 cm/s, phasicity: Triphasic Superficial femoral artery (proximal): 109 cm/s, phasicity: Triphasic Superficial femoral artery (mid): 110 cm/s, phasicity: Triphasic Superficial femoral artery (distal): 79 cm/s, phasicity: Triphasic Popliteal artery: 70 cm/s, phasicity: Triphasic Posterior tibial artery: 114 cm/s, phasicity: Triphasic Peroneal artery: 37 cm/s, phasicity: Triphasic Anterior tibial artery: 49 cm/s, phasicity: Triphasic Dorsalis pedis artery: 41 cm/s, phasicity: Triphasic. BRACHIAL PRESSURES: Right: 146 Left: 146 ANKLE PRESSURES: Right: PT 178, DP 170 Left: PT 178, DP 178 ANKLE-BRACHIAL INDEX: Right: 1.22 Left: 1.22 ANKLE PVR WAVEFORMS: Right: Normal Left: Normal US/US arterial duplex LE BI IMPRESSION: Right le cm pseudoaneurysm, right common femoral artery, with associated 2 cm hematoma. Normal peak systolic velocities and waveforms throughout the interrogated arteries.. Left leg: Normal PICC systolic velocity and waveforms throughout the interrogated arteries. Findings were communicated by the cardiac cath lab technologist via [email or web address] connect to Dr. Aureliano Shah on May 12, 2025 at 3:29 PM. SAMANTHA Reference: - >1.4 = calcified vessels - 0.9 - 1.4 = normal - no significant arterial disease - 0.7 - 0.89 = mild peripheral arterial disease - 0.51 - 0.69 = moderate peripheral arterial disease - 0.50 = severe peripheral arterial disease - < .30 = critical arterial disease Electronically signed by: Kenryo Carbajal MD 05/13/2025 10:59 AM EDT
--- OUTSIDE RECORDS SUMMARY | 2025-05-12 14:37 | XMS_ITS ---
Author Name [facility] Organization Unknown Results Test Name/Text Value Interpretation Date Range Source Glucose Bld-mCnc 178.0 mg/dL 05/03/2025 70 - 199 [facility] Glucose Bld-mCnc 149.0 mg/dL 05/03/2025 70 - 199 [facility] RBC Auto 91.7 FL 05/03/2025 78 - 100 [facility] RBC # Bld Auto 2.52 M/mcL Below low normal 05/03/2025 4.7 - 6 [facility] Hgb Bld-mCnc 7.8 g/dL Below low normal 05/03/2025 13.5 - 18 [facility] RDW RBC Auto 15.3 % 05/03/2025 12.1 - 17.7 [facility] WBC # Bld Auto 6.8 K/mcL 05/03/2025 4 - 10.5 [facility] PMV Bld Auto 8.6 FL 05/03/2025 7.4 - 11.4 [facility] MCH RBC Qn Auto 30.7 pcg 05/03/2025 25 - 33 [facility] Hct VFr Bld Auto 23.1 % Below low normal 05/03/2025 40 - 54 [facility] MCHC RBC Auto-EntMCnc 33.5 g/dL 05/03/2025 32 - 36 [facility] Platelet # Bld Auto 90.0 K/mcL Below low normal 05/03/2025 1 50 - 450 [facility] CO2 SerPl-sCnc 23.0 mmol/L Below low normal 05/03/2025 24 - 32 [facility] eGFRcr SerPlBld CKD-EPI 2020 98.0 mL/min/1.73m2 05/03/2025 - [facility] Glucose SerPl-mCnc 145.0 mg/dL 05/03/2025 70 - 199 [facility] Calcium SerPl-mCnc 8.3 mg/dL Below low normal 05/03/2025 8.4 - 10.2 [facility] Potassium SerPl-sCnc 3.6 mmol/L 05/03/2025 3.5 - 5.1 [facility] Sodium SerPl-sCnc 136.0 mmol/L 05/03/2025 135 - 14 5 [facility] Anion Gap SerPl Calc-sCnc 11.0 05/03/2025 5 - 14 [facility] Creat SerPl-mCnc 0.8 mg/dL 05/03/2025 0.7 - 1.3 CT [facility] BUN SerPl-mCnc 13.0 mg/dL 05/03/2025 9 - 20 [facility] Chloride SerPl-sCnc 102.0 mmol/L 05/03/2025 98 - 1 07 [facility] BUN/Creat SerPl 16.3 05/03/2025 12 - 20 [facility] Magnesium SerPl-mCnc 2.2 mg/dL 05/03/2025 1.7 - 2.8 [facility] Phosphate SerPl-mCnc 2.4 mg/dL Below low normal 05/03/2025 2.5 - 4.5 [facility] Glucose Bld-mCnc 125.0 mg/dL 05/03/2025 70 - 199 [facility] Glucose Bld-mCnc 137.0 mg/dL 05/02/2025 70 - 199 [facility] Glucose Bld-mCnc 169.0 mg/dL 05/02/2025 70 - 199 [facility] Glucose Bld-mCnc 137.0 mg/dL 05/02/2025 70 - 199 [facility] aPTT PPP 28.3 sec 05/02/2025 25 - 37 [facility] Glucose SerPl-mCnc 126.0 mg/dL 05/02/2025 70 - 199 [facility] eGFRcr SerPlBld CKD-EPI 2020 102.0 mL/min/1.73m2 05/02/2025 - [facility] BUN/Creat SerPl 17.1 05/02/2025 12 - 20 [facility] Potassium SerPl-sCnc 3.5 mmol/L 05/02/2025 3.5 - 5.1 [facility] Creat SerPl-mCnc 0.7 mg/dL 05/02/2025 0.7 - 1.3 CT [facility] CO2 SerPl-sCnc 27.0 mmol/L 05/02/2025 24 - 32 [facility] BUN SerPl-mCnc 12.0 mg/dL 05/02/2025 9 - 20 [facility] Anion Gap SerPl Calc-sCnc 8.0 05/02/2025 5 - 14 [facility] Chloride SerPl-sCnc 96.0 mmol/L Below low normal 05/02/2025 98 - 107 [facility] Calcium SerPl-mCnc 8.2 mg/dL Below low normal 05/02/2025 8.4 - 10.2 [facility] Sodium SerPl-sCnc 131.0 mmol/L Below low normal 05/02/2025 1 35 - 145 [facility] Magnesium SerPl-mCnc 2.3 mg/dL 05/02/2025 1.7 - 2.8 [facility] RBC Auto 91.4 FL 05/02/2025 78 - 100 [facility] RBC # Bld Auto 2.61 M/mcL Below low normal 05/02/2025 4.7 - 6 [facility] Platelet # Bld Auto 70.0 K/mcL Below low normal 05/02/2025 1 50 - 450 [facility] PMV Bld Auto 8.2 FL 05/02/2025 7.4 - 11.4 [facility] Hgb Bld-mCnc 8.0 g/dL Below low normal 05/02/2025 13.5 - 18 [facility] WBC # Bld Auto 8.4 K/mcL 05/02/2025 4 - 10.5 [facility] MCH RBC Qn Auto 30.6 pcg 05/02/2025 25 - 33 [facility] Hct VFr Bld Auto 23.9 % Below low normal 05/02/2025 40 - 54 [facility] MCHC RBC Auto-EntMCnc 33.4 g/dL 05/02/2025 32 - 36 [facility] RDW RBC Auto 15.3 % 05/02/2025 12.1 - 17.7 [facility] Heparin Anti Xa Fld.NB-aCnc 0.53 I Unit/mL 05/02/2025 [facility] Ca-I Bld-mCnc 1.16 mg/dL Below low normal 05/02/2025 1.19 - 1.35 [facility] Heparin Anti Xa Fld.NB-aCnc 0.53 I Unit/mL 05/02/2025 [facility] Glucose Bld-mCnc 149.0 mg/dL 05/02/2025 70 - 199 [facility] Heparin Anti Xa Fld.NB-aCnc 0.4 I Unit/mL 05/01/2025 [facility] Glucose Bld-mCnc 143.0 mg/dL 05/01/2025 70 - 199 [facility] Heparin Anti Xa Fld.NB-aCnc 0.04 I Unit/mL 05/01/2025 [facility] Glucose Bld-mCnc 149.0 mg/dL 05/01/2025 70 - 199 [facility] Glucose Bld-mCnc 123.0 mg/dL 05/01/2025 70 - 199 [facility] Phosphate SerPl-mCnc 2.0 mg/dL Below low normal 05/01/2025 2.5 - 4.5 [facility] BUN/Creat SerPl 16.7 05/01/2025 12 - 20 [facility] Glucose SerPl-mCnc 109.0 mg/dL 05/01/2025 70 - 199 [facility] CO2 SerPl-sCnc 27.0 mmol/L 05/01/2025 24 - 32 [facility] Creat SerPl-mCnc 0.6 mg/dL Below low normal 05/01/2025 0.7 - 1.3 [facility] Calcium SerPl-mCnc 8.3 mg/dL Below low normal 05/01/2025 8.4 - 10.2 [facility] Potassium SerPl-sCnc 3.5 mmol/L 05/01/2025 3.5 - 5.1 [facility] Anion Gap SerPl Calc-sCnc 7.0 05/01/2025 5 - 14 [facility] BUN SerPl-mCnc 10.0 mg/dL 05/01/2025 9 - 20 [facility] eGFRcr SerPlBld CKD-EPI 2020 106.0 mL/min/1.73m2 05/01/2025 - [facility] Sodium SerPl-sCnc 128.0 mmol/L Below low normal 05/01/2025 1 35 - 145 [facility] Chloride SerPl-sCnc 94.0 mmol/L Below low normal 05/01/2025 98 - 107 [facility] Magnesium SerPl-mCnc 2.2 mg/dL 05/01/2025 1.7 - 2.8 [facility] RBC Auto 91.2 FL 05/01/2025 78 - 100 [facility] RDW RBC Auto 15.7 % 05/01/2025 12.1 - 17.7 [facility] MCHC RBC Auto-EntMCnc 32.8 g/dL 05/01/2025 32 - 36 [facility] Hgb Bld-mCnc 8.2 g/dL Below low normal 05/01/2025 13.5 - 18 [facility] MCH RBC Qn Auto 29.9 pcg 05/01/2025 25 - 33 [facility] Hct VFr Bld Auto 25.0 % Below low normal 05/01/2025 40 - 54 [facility] Platelet # Bld Auto 77.0 K/mcL Below low normal 05/01/2025 1 50 - 450 [facility] RBC # Bld Auto 2.74 M/mcL Below low normal 05/01/2025 4.7 - 6 [facility] WBC # Bld Auto 11.0 K/mcL Above high normal 05/01/2025 4 - 1 0.5 [facility] PMV Bld Auto 8.1 FL 05/01/2025 7.4 - 11.4 [facility] Ca-I Bld-mCnc 1.15 mg/dL Below low normal 05/01/2025 1.19 - 1.35 [facility] Glucose Bld-mCnc 119.0 mg/dL 05/01/2025 70 - 199 [facility] Glucose Bld-mCnc 109.0 mg/dL 05/01/2025 70 - 199 [facility] Hgb Bld-mCnc 8.3 g/dL Below low normal 05/01/2025 13.5 - 18 [facility] Hct VFr Bld Auto 25.2 % Below low normal 05/01/2025 40 - 54 [facility] Glucose Bld-mCnc 124.0 mg/dL 05/01/2025 70 - 199 [facility] Glucose Bld-mCnc 80.0 mg/dL 05/01/2025 70 - 199 C [facility] Glucose Bld-mCnc 149.0 mg/dL 04/30/2025 70 - 199 [facility] Hgb Bld-mCnc 7.4 g/dL Below low normal 04/30/2025 13.5 - 18 [facility] Hct VFr Bld Auto 21.7 % Below low normal 04/30/2025 40 - 54 [facility] Glucose Bld-mCnc 145.0 mg/dL 04/30/2025 70 - 199 [facility] Glucose Bld-mCnc 137.0 mg/dL 04/30/2025 70 - 199 [facility] Glucose Bld-mCnc 126.0 mg/dL 04/30/2025 70 - 199 [facility] Cystine Cry #/area UrnS HPF 7.4 pH 04/30/2025 7.35 - 7.45 [facility] Mixed Cell Casts #/area UrnS HPF 46.0 mmHg 04/30/2025 [facility] pO2 BldMV 33.0 mmHg 04/30/2025 [facility] Squamous #/area UrnS HPF 3.0 mmol/L 04/30/2025 [facility] Mucous Threads #/area UrnS HPF 26.3 mmol/L 04/30/2025 [facility] Acute kidney injury risk NephroCheck 1.68 Above high normal 04/30/2025 - [facility] Magnesium SerPl-mCnc 2.2 mg/dL 04/30/2025 1.7 - 2.8 [facility] CO2 SerPl-sCnc 26.0 mmol/L 04/30/2025 24 - 32 CT [facility] Creat SerPl-mCnc 0.8 mg/dL 04/30/2025 0.7 - 1.3 CT [facility] Potassium SerPl-sCnc 4.1 mmol/L 04/30/2025 3.5 - 5.1 [facility] BUN SerPl-mCnc 12.0 mg/dL 04/30/2025 9 - 20 [facility] eGFRcr SerPlBld CKD-EPI 2020 98.0 mL/min/1.73m2 04/30/2025 - [facility] Anion Gap SerPl Calc-sCnc 9.0 04/30/2025 5 - 14 [facility] Calcium SerPl-mCnc 8.1 mg/dL Below low normal 04/30/2025 8.4 - 10.2 [facility] Sodium SerPl-sCnc 132.0 mmol/L Below low normal 04/30/2025 1 35 - 145 [facility] BUN/Creat SerPl 15.0 04/30/2025 12 - 20 [facility] Chloride SerPl-sCnc 97.0 mmol/L Below low normal 04/30/2025 98 - 107 [facility] Glucose SerPl-mCnc 124.0 mg/dL Above high normal 04/30/2025 70 - 99 [facility] Phosphate SerPl-mCnc 2.4 mg/dL Below low normal 04/30/2025 2.5 - 4.5 [facility] MCHC RBC Auto-EntMCnc 34.0 g/dL 04/30/2025 32 - 36 [facility] Hct VFr Bld Auto 27.9 % Below low normal 04/30/2025 40 - 54 [facility] RDW RBC Auto 15.9 % 04/30/2025 12.1 - 17.7 [facility] MCH RBC Qn Auto 30.3 pcg 04/30/2025 25 - 33 [facility] Hgb Bld-mCnc 9.5 g/dL Below low normal 04/30/2025 13.5 - 18 [facility] WBC # Bld Auto 13.7 K/mcL Above high normal 04/30/2025 4 - 1 0.5 [facility] RBC Auto 89.0 FL 04/30/2025 78 - 100 [facility] PMV Bld Auto 8.1 FL 04/30/2025 7.4 - 11.4 [facility] Platelet # Bld Auto 104.0 K/mcL Below low normal 04/30/2025 150 - 450 [facility] RBC # Bld Auto 3.14 M/mcL Below low normal 04/30/2025 4.7 - 6 [facility] Ca-I Bld-mCnc 1.05 mg/dL Below low normal 04/30/2025 1.19 - 1.35 [facility] SaO2 % BldA 99.9 % Above high normal 04/30/2025 95 - 98 [facility] pH BldA 7.46 pH Above high normal 04/30/2025 7.35 - 7.45 [facility] HCO3 BldA-sCnc 26.5 mmol/L Above high normal 04/30/2025 22 - 26 [facility] pO2 BldA 116.0 mmHg Above high normal 04/30/2025 80 - 105 [facility] pCO2 BldA 36.0 mmHg 04/30/2025 35 - 45 [facility] Base excess BldA Calc-sCnc 2.0 mmol/L 04/30/2025 0 - 2 [facility] Glucose Bld-mCnc 139.0 mg/dL 04/30/2025 70 - 199 [facility] Glucose Bld-mCnc 110.0 mg/dL 04/30/2025 70 - 199 [facility] Glucose Bld-mCnc 115.0 mg/dL 04/30/2025 70 - 199 [facility] Potassium SerPl-sCnc 4.0 mmol/L 04/30/2025 3.5 - 5.1 [facility] aPTT PPP 32.3 sec 04/30/2025 25 - 37 [facility] INR PPP 1.2 Above high normal 04/30/2025 0.8 - 1.1 C [facility] PT Bld 13.4 sec Above high normal 04/30/2025 10.5 - 13.3 [facility] Glucose Bld-mCnc 112.0 mg/dL 04/30/2025 70 - 199 [facility] Hgb Bld-mCnc 9.3 g/dL Below low normal 04/30/2025 13.5 - 18 [facility] Hct VFr Bld Auto 27.0 % Below low normal 04/30/2025 40 - 54 [facility] Glucose Bld-mCnc 122.0 mg/dL 04/29/2025 70 - 199 [facility] Glucose Bld-mCnc 133.0 mg/dL 04/29/2025 70 - 199 [facility] pO2 BldA 94.0 mmHg 05/01/2025 80 - 105 [facility] pCO2 BldA 44.7 mmHg 05/01/2025 35 - 45 [facility] Rose index Bld+IhG-Rto 35.0 % 05/01/2025 - [facility] pO2 temp adj BldA 95.0 mmHg Critically high 05/01/2025 35 - 45 [facility] pH temp adj BldA 7.4 05/01/2025 7.35 - 7.45 [facility] Specimen drawn from Patient ART 05/01/2025 [facility] Body temperature 98.9 C 05/01/2025 CT [facility] pCO2 temp adj BldA 45.0 mmHg 05/01/2025 35 - 45 [facility] SaO2 % BldA 97.0 % 05/01/2025 95 - 98 [facility] pH BldA 7.4 05/01/2025 7.35 - 7.45 [facility] HCO3 BldA-sCnc 27.7 mmol/L Above high normal 05/01/2025 22 - 26 [facility] Base excess BldA Calc-sCnc 3.0 mmol/L Above high normal 05/01/2025 0 - 2 [facility] Glucose Bld-mCnc 161.0 mg/dL 04/29/2025 70 - 199 [facility] Potassium SerPl-sCnc 4.0 mmol/L 04/29/2025 3.5 - 5.1 [facility] aPTT PPP 43.0 sec Above high normal 04/29/2025 25 - 37 [facility] INR PPP 1.2 Above high normal 04/29/2025 0.8 - 1.1 C [facility] PT Bld 13.4 sec Above high normal 04/29/2025 10.5 - 13.3 [facility] Hct VFr Bld Auto 29.9 % Below low normal 04/29/2025 40 - 54 [facility] Hgb Bld-mCnc 10.1 g/dL Below low normal 04/29/2025 13.5 - 18 [facility] pO2 BldA 217.0 mmHg Above high normal 05/01/2025 80 - 105 [facility] Body temperature 98.2 C 05/01/2025 CT [facility] pCO2 temp adj BldA 42.4 mmHg 05/01/2025 35 - 45 [facility] HCO3 BldA-sCnc 26.7 mmol/L Above high normal 05/01/2025 22 - 26 [facility] pCO2 BldA 42.8 mmHg 05/01/2025 35 - 45 [facility] Specimen drawn from Patient ART 05/01/2025 [facility] Base excess BldA Calc-sCnc 2.0 mmol/L 05/01/2025 0 - 2 [facility] pH BldA 7.4 05/01/2025 7.35 - 7.45 [facility] pO2 temp adj BldA 216.0 mmHg Critically high 05/01/2025 35 - 45 [facility] SaO2 % BldA 100.0 % Above high normal 05/01/2025 95 - 98 [facility] pH temp adj BldA 7.41 05/01/2025 7.35 - 7.45 [facility] Rose index Bld+IhG-Rto 40.0 % 05/01/2025 - [facility] Glucose Bld-mCnc 184.0 mg/dL 04/29/2025 70 - 199 [facility] HCO3 BldA-sCnc 26.4 mmol/L Above high normal 05/01/2025 22 - 26 [facility] SaO2 % BldA 99.0 % Above high normal 05/01/2025 95 - 98 [facility] Specimen drawn from Patient ART 05/01/2025 [facility] Rose index Bld+IhG-Rto 40.0 % 05/01/2025 - [facility] pO2 BldA 143.0 mmHg Above high normal 05/01/2025 80 - 105 [facility] pH BldA 7.42 05/01/2025 7.35 - 7.45 [facility] Body temperature 97.8 C 05/01/2025 CT [facility] pCO2 BldA 41.0 mmHg 05/01/2025 35 - 45 [facility] pH temp adj BldA 7.42 05/01/2025 7.35 - 7.45 [facility] pCO2 temp adj BldA 40.2 mmHg 05/01/2025 35 - 45 [facility] pO2 temp adj BldA 140.0 mmHg Critically high 05/01/2025 35 - 45 [facility] Base excess BldA Calc-sCnc 2.0 mmol/L 05/01/2025 0 - 2 [facility] Glucose Bld-mCnc 202.0 mg/dL Above high normal 04/29/2025 70 - 199 [facility] Body temperature 97.3 C 05/01/2025 CT [facility] pCO2 temp adj BldA 36.7 mmHg 05/01/2025 35 - 45 [facility] SaO2 % BldA 100.0 % Above high normal 05/01/2025 95 - 98 [facility] Rose index Bld+IhG-Rto 60.0 % 05/01/2025 - [facility] pO2 BldA 171.0 mmHg Above high normal 05/01/2025 80 - 105 [facility] pO2 temp adj BldA 167.0 mmHg Critically high 05/01/2025 35 - 45 [facility] pCO2 BldA 37.9 mmHg 05/01/2025 35 - 45 [facility] pH BldA 7.44 05/01/2025 7.35 - 7.45 [facility] Base excess BldA Calc-sCnc 2.0 mmol/L 05/01/2025 0 - 2 [facility] Specimen drawn from Patient ART 05/01/2025 [facility] pH temp adj BldA 7.45 05/01/2025 7.35 - 7.45 [facility] HCO3 BldA-sCnc 25.7 mmol/L 05/01/2025 22 - 26 [facility] Glucose Bld-mCnc 193.0 mg/dL 04/29/2025 70 - 199 [facility] Trigl SerPl-mCnc 120.0 mg/dL 04/29/2025 - 150 [facility] Body temperature 95.7 C 05/01/2025 CT [facility] pO2 temp adj BldA 88.0 mmHg Critically high 05/01/2025 35 - 45 [facility] pCO2 BldA 47.3 mmHg Above high normal 05/01/2025 35 - 45 [facility] Specimen drawn from Patient ART 05/01/2025 [facility] SaO2 % BldA 97.0 % 05/01/2025 95 - 98 [facility] pH BldA 7.37 05/01/2025 7.35 - 7.45 [facility] Rose index Bld+IhG-Rto 60.0 % 05/01/2025 - [facility] Base excess BldA Calc-sCnc 2.0 mmol/L 05/01/2025 0 - 2 [facility] pO2 BldA 97.0 mmHg 05/01/2025 80 - 105 [facility] pCO2 temp adj BldA 44.1 mmHg 05/01/2025 35 - 45 [facility] HCO3 BldA-sCnc 27.4 mmol/L Above high normal 05/01/2025 22 - 26 [facility] pH temp adj BldA 7.4 05/01/2025 7.35 - 7.45 [facility] Glucose Bld-mCnc 155.0 mg/dL 04/29/2025 70 - 199 [facility] pH BldA 7.37 pH 04/29/2025 7.35 - 7.45 [facility] Base excess BldA Calc-sCnc 1.3 mmol/L 04/29/2025 0 - 2 [facility] pCO2 BldA 47.0 mmHg Above high normal 04/29/2025 35 - 45 C [facility] pO2 BldA 111.0 mmHg Above high normal 04/29/2025 80 - 105 [facility] HCO3 BldA-sCnc 26.0 mmol/L 04/29/2025 22 - 26 [facility] SaO2 % BldA 99.0 % Above high normal 04/29/2025 95 - 98 [facility] Mixed Cell Casts #/area UrnS HPF 50.0 mmHg 04/29/2025 [facility] pO2 BldMV 44.0 mmHg 04/29/2025 [facility] Mucous Threads #/area UrnS HPF 25.9 mmol/L 04/29/2025 [facility] Squamous #/area UrnS HPF 1.9 mmol/L 04/29/2025 [facility] Cystine Cry #/area UrnS HPF 7.36 pH 04/29/2025 7.35 - 7.45 [facility] Anion Gap SerPl Calc-sCnc 7.0 04/29/2025 5 - 14 [facility] Sodium SerPl-sCnc 140.0 mmol/L 04/29/2025 135 - 14 5 [facility] Creat SerPl-mCnc 0.8 mg/dL 04/29/2025 0.7 - 1.3 CT [facility] Glucose SerPl-mCnc 150.0 mg/dL Above high normal 04/29/2025 70 - 99 [facility] Calcium SerPl-mCnc 9.0 mg/dL 04/29/2025 8.4 - 10.2 [facility] Potassium SerPl-sCnc 4.0 mmol/L 04/29/2025 3.5 - 5.1 [facility] CO2 SerPl-sCnc 29.0 mmol/L 04/29/2025 24 - 32 CT [facility] BUN/Creat SerPl 15.0 04/29/2025 12 - 20 [facility] BUN SerPl-mCnc 12.0 mg/dL 04/29/2025 9 - 20 [facility] eGFRcr SerPlBld CKD-EPI 2020 98.0 mL/min/1.73m2 04/29/2025 - [facility] Chloride SerPl-sCnc 104.0 mmol/L 04/29/2025 98 - 1 07 [facility] Potassium SerPl-sCnc 4.0 mmol/L 04/29/2025 3.5 - 5.1 [facility] Phosphate SerPl-mCnc 2.3 mg/dL Below low normal 04/29/2025 2.5 - 4.5 [facility] PT Bld 12.8 sec 04/29/2025 10.5 - 13.3 [facility] INR PPP 1.1 04/29/2025 0.8 - 1.1 [facility] aPTT PPP 30.0 sec 04/29/2025 25 - 37 [facility] Hgb Bld-mCnc 13.0 g/dL Below low normal 04/29/2025 13.5 - 18 [facility] Hct VFr Bld Auto 37.9 % Below low normal 04/29/2025 40 - 54 [facility] Ca-I Bld-mCnc 1.17 mg/dL Below low normal 04/29/2025 1.19 - 1.35 [facility] Hct VFr Bld Auto 37.9 % Below low normal 04/29/2025 40 - 54 [facility] MCH RBC Qn Auto 30.6 pcg 04/29/2025 25 - 33 [facility] Hgb Bld-mCnc 13.0 g/dL Below low normal 04/29/2025 13.5 - 18 [facility] RDW RBC Auto 15.2 % 04/29/2025 12.1 - 17.7 [facility] RBC Auto 89.4 FL 04/29/2025 78 - 100 [facility] RBC # Bld Auto 4.24 M/mcL Below low normal 04/29/2025 4.7 - 6 [facility] MCHC RBC Auto-EntMCnc 34.2 g/dL 04/29/2025 32 - 36 [facility] WBC # Bld Auto 21.1 K/mcL Above high normal 04/29/2025 4 - 1 0.5 [facility] PMV Bld Auto 7.5 FL 04/29/2025 7.4 - 11.4 [facility] Platelet # Bld Auto 132.0 K/mcL Below low normal 04/29/2025 150 - 450 [facility] Base excess BldA Calc-sCnc 1.0 mmol/L 04/29/2025 0 - 2 [facility] Hct VFr BldA Calc 28.0 % Below low normal 04/29/2025 40 - 54 [facility] pH BldA 7.34 Below low normal 04/29/2025 7.35 - 7.45 [facility] Sodium BldA-sCnc 140.0 mmol/L 04/29/2025 135 - 145 [facility] Glucose BldA-mCnc 168.0 mg/dL 04/29/2025 70 - 199 [facility] Ca-I Bld-mCnc 1.17 mmol/L Below low normal 04/29/2025 1.19 - 1.35 [facility] Rose index Bld+IhG-Rto 60.0 % 04/29/2025 - [facility] pO2 BldA 163.0 mmHg Above high normal 04/29/2025 80 - 105 [facility] pH temp adj BldA 7.34 Below low normal 04/29/2025 7.35 - 7.45 [facility] SaO2 % BldA 99.0 % Above high normal 04/29/2025 95 - 98 [facility] pO2 temp adj BldA 163.0 mmHg Critically high 04/29/2025 35 - 45 [facility] Hgb BldA-mCnc 9.5 g/dL Below low normal 04/29/2025 13.5 - 1 8 [facility] HCO3 BldA-sCnc 26.5 mmol/L Above high normal 04/29/2025 22 - 26 [facility] Body temperature 37.0 C 04/29/2025 CT [facility] Potassium BldA-sCnc 3.9 mmol/L 04/29/2025 3.5 - 5. 1 [facility] pCO2 BldA 48.7 mmHg Above high normal 04/29/2025 35 - 45 C [facility] pCO2 temp adj BldA 48.7 mmHg Above high normal 04/29/2025 35 - 45 [facility] Sodium BldA-sCnc 138.0 mmol/L 04/29/2025 135 - 145 [facility] Hgb BldA-mCnc 9.2 g/dL Below low normal 04/29/2025 13.5 - 1 8 [facility] Hct VFr BldA Calc 27.0 % Below low normal 04/29/2025 40 - 54 [facility] SaO2 % BldA 100.0 % Above high normal 04/29/2025 95 - 98 [facility] Ca-I Bld-mCnc 1.06 mmol/L Below low normal 04/29/2025 1.19 - 1.35 [facility] Glucose BldA-mCnc 208.0 mg/dL Above high normal 04/29/2025 7 0 - 199 [facility] Potassium BldA-sCnc 4.9 mmol/L 04/29/2025 3.5 - 5. 1 [facility] pH BldA 7.39 04/29/2025 7.35 - 7.45 [facility] pCO2 BldA 45.3 mmHg Above high normal 04/29/2025 35 - 45 C [facility] pH temp adj BldA 7.39 04/29/2025 7.35 - 7.45 [facility] HCO3 BldA-sCnc 27.5 mmol/L Above high normal 04/29/2025 22 - 26 [facility] pO2 temp adj BldA 304.0 mmHg Critically high 04/29/2025 35 - 45 [facility] Base excess BldA Calc-sCnc 3.0 mmol/L Above high normal 04/29/2025 0 - 2 [facility] pO2 BldA 304.0 mmHg Above high normal 04/29/2025 80 - 105 [facility] Body temperature 37.0 C 04/29/2025 CT [facility] pCO2 temp adj BldA 45.3 mmHg Above high normal 04/29/2025 35 - 45 [facility] Rose index Bld+IhG-Rto 70.0 % 04/29/2025 - [facility] Fibrinogen PPP-mCnc 184.0 mg/dL 04/29/2025 145 - 4 15 [facility] Platelet # Bld Auto 140.0 K/mcL Below low normal 04/29/2025 150 - 450 [facility] PMV Bld Auto 04/29/2025 [facility] HCO3 BldA-sCnc 27.6 mmol/L Above high normal 04/29/2025 22 - 26 [facility] pCO2 temp adj BldA 43.1 mmHg 04/29/2025 35 - 45 [facility] Ca-I Bld-mCnc 1.06 mmol/L Below low normal 04/29/2025 1.19 - 1.35 [facility] SaO2 % BldA 100.0 % Above high normal 04/29/2025 95 - 98 [facility] pH temp adj BldA 7.42 04/29/2025 7.35 - 7.45 [facility] Base excess BldA Calc-sCnc 3.0 mmol/L Above high normal 04/29/2025 0 - 2 [facility] pO2 BldA 257.0 mmHg Above high normal 04/29/2025 80 - 105 [facility] Glucose BldA-mCnc 225.0 mg/dL Above high normal 04/29/2025 7 0 - 199 [facility] Potassium BldA-sCnc 4.2 mmol/L 04/29/2025 3.5 - 5. 1 [facility] Hgb BldA-mCnc 9.9 g/dL Below low normal 04/29/2025 13.5 - 1 8 [facility] Hct VFr BldA Calc 29.0 % Below low normal 04/29/2025 40 - 54 [facility] pCO2 BldA 43.1 mmHg 04/29/2025 35 - 45 [facility] N pH BldA 7.42 04/29/2025 7.35 - 7.45 [facility] Sodium BldA-sCnc 138.0 mmol/L 04/29/2025 135 - 145 [facility] Rose index Bld+IhG-Rto 65.0 % 04/29/2025 - [facility] Body temperature 37.0 C 04/29/2025 CT [facility] pO2 temp adj BldA 257.0 mmHg Critically high 04/29/2025 35 - 45 [facility] Potassium BldA-sCnc 4.8 mmol/L 04/29/2025 3.5 - 5. 1 [facility] pH temp adj BldA 7.41 04/29/2025 7.35 - 7.45 [facility] Hct VFr BldA Calc 29.0 % Below low normal 04/29/2025 40 - 54 [facility] pO2 temp adj BldA 280.0 mmHg Critically high 04/29/2025 35 - 45 [facility] pH BldA 7.41 04/29/2025 7.35 - 7.45 [facility] HCO3 BldA-sCnc 28.5 mmol/L Above high normal 04/29/2025 22 - 26 [facility] pO2 BldA 280.0 mmHg Above high normal 04/29/2025 80 - 105 [facility] Sodium BldA-sCnc 136.0 mmol/L 04/29/2025 135 - 145 [facility] Base excess BldA Calc-sCnc 4.0 mmol/L Above high normal 04/29/2025 0 - 2 [facility] Body temperature 37.0 C 04/29/2025 CT [facility] SaO2 % BldA 100.0 % Above high normal 04/29/2025 95 - 98 [facility] pCO2 BldA 44.7 mmHg 04/29/2025 35 - 45 [facility] Glucose BldA-mCnc 238.0 mg/dL Above high normal 04/29/2025 7 0 - 199 [facility] pCO2 temp adj BldA 44.7 mmHg 04/29/2025 35 - 45 [facility] Rose index Bld+IhG-Rto 65.0 % 04/29/2025 - [facility] Ca-I Bld-mCnc 1.06 mmol/L Below low normal 04/29/2025 1.19 - 1.35 [facility] Hgb BldA-mCnc 9.9 g/dL Below low normal 04/29/2025 13.5 - 1 8 [facility] pCO2 BldA 41.0 mmHg 04/29/2025 35 - 45 [facility] N pO2 temp adj BldA 281.0 mmHg Critically high 04/29/2025 35 - 45 [facility] Sodium BldA-sCnc 136.0 mmol/L 04/29/2025 135 - 145 [facility] Glucose BldA-mCnc 232.0 mg/dL Above high normal 04/29/2025 7 0 - 199 [facility] Rose index Bld+IhG-Rto 65.0 % 04/29/2025 - [facility] Base excess BldA Calc-sCnc 3.0 mmol/L Above high normal 04/29/2025 0 - 2 [facility] SaO2 % BldA 100.0 % Above high normal 04/29/2025 95 - 98 [facility] pH BldA 7.44 04/29/2025 7.35 - 7.45 [facility] pO2 BldA 281.0 mmHg Above high normal 04/29/2025 80 - 105 [facility] Ca-I Bld-mCnc 1.04 mmol/L Below low normal 04/29/2025 1.19 - 1.35 [facility] pCO2 temp adj BldA 41.0 mmHg 04/29/2025 35 - 45 [facility] Potassium BldA-sCnc 4.2 mmol/L 04/29/2025 3.5 - 5. 1 [facility] Body temperature 37.0 C 04/29/2025 CT [facility] Hct VFr BldA Calc 30.0 % Below low normal 04/29/2025 40 - 54 [facility] Hgb BldA-mCnc 10.2 g/dL Below low normal 04/29/2025 13.5 - 1 8 [facility] HCO3 BldA-sCnc 27.5 mmol/L Above high normal 04/29/2025 22 - 26 [facility] pH temp adj BldA 7.44 04/29/2025 7.35 - 7.45 [facility] Rose index Bld+IhG-Rto 60.0 % 04/29/2025 - [facility] SaO2 % BldA 100.0 % Above high normal 04/29/2025 95 - 98 [facility] HCO3 BldA-sCnc 28.1 mmol/L Above high normal 04/29/2025 22 - 26 [facility] pCO2 BldA 48.3 mmHg Above high normal 04/29/2025 35 - 45 C [facility] Ca-I Bld-mCnc 1.04 mmol/L Below low normal 04/29/2025 1.19 - 1.35 [facility] Sodium BldA-sCnc 137.0 mmol/L 04/29/2025 135 - 145 [facility] Hct VFr BldA Calc 30.0 % Below low normal 04/29/2025 40 - 54 [facility] pO2 temp adj BldA 265.0 mmHg Critically high 04/29/2025 35 - 45 [facility] pO2 BldA 265.0 mmHg Above high normal 04/29/2025 80 - 105 [facility] Base excess BldA Calc-sCnc 3.0 mmol/L Above high normal 04/29/2025 0 - 2 [facility] Body temperature 37.0 C 04/29/2025 CT [facility] Glucose BldA-mCnc 233.0 mg/dL Above high normal 04/29/2025 7 0 - 199 [facility] Potassium BldA-sCnc 4.1 mmol/L 04/29/2025 3.5 - 5. 1 [facility] pCO2 temp adj BldA 48.3 mmHg Above high normal 04/29/2025 35 - 45 [facility] pH temp adj BldA 7.37 04/29/2025 7.35 - 7.45 [facility] Hgb BldA-mCnc 10.2 g/dL Below low normal 04/29/2025 13.5 - 1 8 [facility] pH BldA 7.37 04/29/2025 7.35 - 7.45 [facility] pH temp adj BldA 7.37 04/29/2025 7.35 - 7.45 [facility] Hgb BldA-mCnc 12.6 g/dL Below low normal 04/29/2025 13.5 - 1 8 [facility] Rose index Bld+IhG-Rto 40.0 % 04/29/2025 - [facility] pO2 temp adj BldA 79.0 mmHg Critically high 04/29/2025 35 - 45 [facility] Base excess BldA Calc-sCnc 2.0 mmol/L 04/29/2025 0 - 2 [facility] Ca-I Bld-mCnc 1.13 mmol/L Below low normal 04/29/2025 1.19 - 1.35 [facility] SaO2 % BldA 95.0 % 04/29/2025 95 - 98 [facility] Hct VFr BldA Calc 37.0 % Below low normal 04/29/2025 40 - 54 [facility] Glucose BldA-mCnc 207.0 mg/dL Above high normal 04/29/2025 7 0 - 199 [facility] Potassium BldA-sCnc 3.7 mmol/L 04/29/2025 3.5 - 5. 1 [facility] pCO2 BldA 47.3 mmHg Above high normal 04/29/2025 35 - 45 C [facility] pCO2 temp adj BldA 47.3 mmHg Above high normal 04/29/2025 35 - 45 [facility] Body temperature 37.0 C 04/29/2025 CT [facility] Sodium BldA-sCnc 137.0 mmol/L 04/29/2025 135 - 145 [facility] pH BldA 7.37 04/29/2025 7.35 - 7.45 [facility] pO2 BldA 79.0 mmHg Below low normal 04/29/2025 80 - 105 [facility] HCO3 BldA-sCnc 27.4 mmol/L Above high normal 04/29/2025 22 - 26 [facility] pO2 temp adj BldA 453.0 mmHg Critically high 04/29/2025 35 - 45 [facility] pH BldA 7.41 04/29/2025 7.35 - 7.45 [facility] pH temp adj BldA 7.43 04/29/2025 7.35 - 7.45 [facility] Glucose BldA-mCnc 163.0 mg/dL 04/29/2025 70 - 199 [facility] Base excess BldA Calc-sCnc 3.0 mmol/L Above high normal 04/29/2025 0 - 2 [facility] Potassium BldA-sCnc 3.7 mmol/L 04/29/2025 3.5 - 5. 1 [facility] SaO2 % BldA 100.0 % Above high normal 04/29/2025 95 - 98 [facility] Hct VFr BldA Calc 37.0 % Below low normal 04/29/2025 40 - 54 [facility] pCO2 BldA 42.9 mmHg 04/29/2025 35 - 45 [facility] N Ca-I Bld-mCnc 1.14 mmol/L Below low normal 04/29/2025 1.19 - 1.35 [facility] Rose index Bld+IhG-Rto 50.0 % 04/29/2025 - [facility] Body temperature 36.2 C 04/29/2025 CT [facility] Hgb BldA-mCnc 12.6 g/dL Below low normal 04/29/2025 13.5 - 1 8 [facility] pO2 BldA 458.0 mmHg Above high normal 04/29/2025 80 - 105 [facility] HCO3 BldA-sCnc 27.4 mmol/L Above high normal 04/29/2025 22 - 26 [facility] pCO2 temp adj BldA 41.4 mmHg 04/29/2025 35 - 45 [facility] Sodium BldA-sCnc 137.0 mmol/L 04/29/2025 135 - 145 [facility] Rh Bld Positive 04/29/2025 [facility] N Bld gp Ab Scn SerPl Ql Negative 04/29/2025 [facility] ABO Group Bld A 04/29/2025 [facility] PT Bld 11.1 sec 04/29/2025 10.5 - 13.3 [facility] INR PPP 1.0 04/29/2025 0.8 - 1.1 [facility] N aPTT PPP 34.6 sec 04/29/2025 25 - 37 [facility] Glucose Bld-mCnc 108.0 mg/dL 04/29/2025 70 - 199 [facility] BZE Ur Ql Scn Negative 04/29/2025 - [facility] Barbiturates Ur Ql Scn Negative 04/29/2025 - [facility] oxyCODONE Ur Ql Scn Negative 04/29/2025 - [facility] PCP Ur Ql Scn Negative 04/29/2025 - [facility] Opiates Ur Ql Scn Negative 04/29/2025 - C [facility] fentaNYL Ur Ql Negative 04/29/2025 - [facility] Amphet Ur Ql Scn Negative 04/29/2025 - [facility] Cannabinoids Ur Ql Scn Negative 04/29/2025 - [facility] Benzodiaz Ur Ql Scn Negative 04/29/2025 - [facility] Cannabinoids Ur Ql Scn Negative 04/22/2025 - [facility] fentaNYL Ur Ql Negative 04/22/2025 - [facility] Barbiturates Ur Ql Scn Negative 04/22/2025 - [facility] BZE Ur Ql Scn Negative 04/22/2025 - [facility] Opiates Ur Ql Scn Negative 04/22/2025 - C [facility] PCP Ur Ql Scn Negative 04/22/2025 - [facility] Benzodiaz Ur Ql Scn Negative 04/22/2025 - [facility] Amphet Ur Ql Scn Negative 04/22/2025 - [facility] oxyCODONE Ur Ql Scn Negative 04/22/2025 - [facility] Sp Gr Ur 1.008 04/21/2025 1.005 - 1.03 [facility] Hgb Ur Ql Small Abnormal 04/21/2025 - [facility] Squamous #/area UrnS HPF 0.0 /HPF 04/21/2025 0 - 5 [facility] Clarity Ur Clear 04/21/2025 - [facility] AN Nitrite Ur Ql Negative 04/21/2025 - [facility] Glucose Ur Ql Negative 04/21/2025 - [facility] WBC #/area UrnS HPF <1.0 /HPF 04/21/2025 0 - 5 [facility] Color Ur Yellow 04/21/2025 - [facility] Prot Ur Strip-mCnc Negative 04/21/2025 - [facility] Leukocyte esterase Ur Ql Strip Negative 04/21/2025 - [facility] pH Ur 7.0 pH 04/21/2025 5 - 8 [facility] RBC #/area UrnS HPF 2.0 /HPF 04/21/2025 0 - 3 [facility] Ketones Ur-mCnc Negative 04/21/2025 - [facility] Hyaline Casts #/area UrnS LPF 1.0 /LPF Above high normal 04/21/2025 - [facility] Rh Bld Positive 04/21/2025 [facility] N Bld gp Ab Scn SerPl Ql Negative 04/21/2025 [facility] ABO Group Bld A 04/21/2025 [facility] TSH SerPl DL<=0.005 mIU/L-aCnc 0.81 mcIU/mL 04/21/2025 0.45 - 5.33 [facility] HbA1c MFr Bld 5.3 % 04/21/2025 - 5.7 [facility] Est. average glucose Bld gHb Est-mCnc 105.0 mg/dL 04/21/2025 [facility] HDLc SerPl-mCnc 64.0 mg/dL 04/21/2025 32 - 70 [facility] Trigl SerPl-mCnc 67.0 mg/dL 04/21/2025 - 150 C [facility] Cholest SerPl-mCnc 118.0 mg/dL 04/21/2025 0 - 200 [facility] VLDLc SerPl Calc-mCnc 13.4 mg/dL 04/21/2025 [facility] LDLc SerPl Calc-mCnc 41.0 mg/dL Below low normal 04/21/2025 50 - 130 [facility] Creat SerPl-mCnc 1.1 mg/dL 04/21/2025 0.7 - 1.3 CT [facility] Anion Gap SerPl Calc-sCnc 9.0 04/21/2025 5 - 14 [facility] BUN SerPl-mCnc 23.0 mg/dL Above high normal 04/21/2025 9 - 2 0 [facility] Calcium SerPl-mCnc 9.7 mg/dL 04/21/2025 8.4 - 10.2 [facility] BUN/Creat SerPl 20.9 Above high normal 04/21/2025 12 - 20 [facility] Chloride SerPl-sCnc 98.0 mmol/L 04/21/2025 98 - 10 7 [facility] Glucose SerPl-mCnc 185.0 mg/dL 04/21/2025 70 - 199 [facility] Sodium SerPl-sCnc 140.0 mmol/L 04/21/2025 135 - 14 5 [facility] CO2 SerPl-sCnc 33.0 mmol/L Above high normal 04/21/2025 24 - 32 [facility] eGFRcr SerPlBld CKD-EPI 2020 74.0 mL/min/1.73m2 04/21/2025 - [facility] Potassium SerPl-sCnc 3.7 mmol/L 04/21/2025 3.5 - 5.1 [facility] Globulin Ser Calc-mCnc 3.2 g/dL 04/21/2025 2.3 - 3.5 [facility] AST SerPl-cCnc 21.0 unit/L 04/21/2025 5 - 40 [facility] ALP SerPl-cCnc 41.0 unit/L 04/21/2025 34 - 104 [facility] Albumin SerPl-mCnc 4.3 g/dL 04/21/2025 3.5 - 5 [facility] Bilirub SerPl-mCnc 0.4 mg/dL 04/21/2025 0.3 - 1 [facility] Prot SerPl-mCnc 7.5 g/dL 04/21/2025 6.4 - 8.5 [facility] Bilirub Direct SerPl-mCnc 0.1 mg/dL 04/21/2025 0 - 0.2 [facility] Albumin/Glob SerPl 1.3 04/21/2025 [facility] ALT SerPl-cCnc 21.0 unit/L 04/21/2025 7 - 52 [facility] Prealb SerPl-mCnc 33.0 mg/dL 04/21/2025 17 - 34 [facility] aPTT PPP 34.3 sec 04/21/2025 25 - 37 [facility] PT Bld 14.6 sec Above high normal 04/21/2025 10.5 - 13.3 [facility] INR PPP 1.3 Above high normal 04/21/2025 0.8 - 1.1 C [facility] MCH RBC Qn Auto 30.1 pcg 04/21/2025 25 - 33 [facility] RBC Auto 92.1 FL 04/21/2025 78 - 100 [facility] RBC # Bld Auto 4.18 M/mcL Below low normal 04/21/2025 4.7 - 6 [facility] MCHC RBC Auto-EntMCnc 32.7 g/dL 04/21/2025 32 - 36 [facility] Eosinophil NFr Bld Auto 0.6 % 04/21/2025 0 - 6 [facility] Hgb Bld-mCnc 12.6 g/dL Below low normal 04/21/2025 13.5 - 18 [facility] Lymphocytes NFr Bld Auto 13.1 % Below low normal 04/21/2025 20 - 48 [facility] Basophils # Bld Auto 0.0 K/mcL 04/21/2025 0 - 0.2 [facility] RDW RBC Auto 16.0 % 04/21/2025 12.1 - 17.7 [facility] Monocytes # Bld Auto 0.2 K/mcL 04/21/2025 0 - 0.8 [facility] Monocytes NFr Bld Auto 3.7 % 04/21/2025 2 - 12 [facility] Neutrophils NFr Bld Auto 82.4 % Above high normal 04/21/2025 44 - 74 [facility] PMV Bld Auto 8.2 FL 04/21/2025 7.4 - 11.4 [facility] Neutrophils # Bld Auto 5.4 K/mcL 04/21/2025 1.8 - 7.8 [facility] Hct VFr Bld Auto 38.5 % Below low normal 04/21/2025 40 - 54 [facility] WBC # Bld Auto 6.5 K/mcL 04/21/2025 4 - 10.5 [facility] Platelet # Bld Auto 118.0 K/mcL Below low normal 04/21/2025 150 - 450 [facility] Eosinophil # Bld Auto 0.0 K/mcL 04/21/2025 0 - 0.5 [facility] Basophils NFr Bld Auto 0.2 % 04/21/2025 0 - 2 [facility] Lymphocytes # Bld Auto 0.8 K/mcL Below low normal 04/21/2025 1 - 3.2 [facility] History of Medication Use Medication Directions Dispensed Refills Start Date End Date Stat us phosphorus (K PHOS NEUTRAL) tablet 2 tablet 2 tablet (500 mg), oral, Every 1 hour, First dose on Fri05/03/25 at 0830, For 2 doses, Administer tablets with a full glass of water. Ordered in mg of elemental phosphorus. Each tablet contains 8 mmol of phosphorus, 1.1 mEq of potassium, and 13 mEq of sodium. 05/03/2025 05/03/20 completed guaiFENesin (MUCINEX) 600 mg 12 hr tablet Take 2 tablets (1,200 mg total) by mouth 2 (two) times a day for 7 days. Do not crush, chew, or split. 05/03/2025 active oxyCODONE (ROXICODONE) 5 mg immediate release tablet Take 1 tablet (5 mg total) by mouth every 6 (six) hours if needed for moderate pain or severe pain for up to 5 days. Max Daily Amount: 20 mg 05/03/2025 active potassium chloride (KLOR-CON M20) 20 mEq CR tablet Take 1 tablet (20 mEq total) by mouth 1 (one) time each day. Tablet may be swallowed whole (do not crush/chew/suck on) OR broken in half and each half swallowed separately OR dissolved (whole tablet) in ~4 ounces of water (allow ~2 minutes to dissolve, stir well and administer immediately). 05/03/2025 active senna-docusate (PERICOLACE) 8.6-50 mg per tablet Take 2 tablets by mouth 2 (two) times a day for 7 days. 05/03/2025 active docusate sodium (COLACE) capsule 100 mg 100 mg, oral, 2 times daily, First dose on Fri05/02/25 at 1145 05/02/2025 05/03/20 aborted potassium chloride (KLOR-CON M20) CR tablet 40 mEq 40 mEq, oral, Once, On Fri05/03/25 at 0630, For 1 dose, Tablet may be swallowed whole (do not crush/chew/suck on) OR broken in half and each half swallowed separately OR dissolved (whole tablet) in ~4 ounces of water (allow ~2 minutes to dissolve, stir well and administer immediately). 05/02/2025 05/03/20 completed ALPRAZolam (XANAX) tablet 0.5 mg 0.5 mg, oral, 3 times daily PRN, anxiety, Starting on Fri05/02/25 at 1559 05/02/2025 active benzocaine-menthoL (CEPACOL SORE THROAT) 15-3.6 mg lozenge 1 lozenge 1 lozenge, Mouth/Throat, Every 2 hours PRN, sore throat, Starting on Fri05/02/25 at 1950 05/02/2025 active bisacodyL (DULCOLAX) suppository 10 mg 10 mg, rectal, Daily PRN, constipation, Starting on Fri05/02/25 at 1114 05/02/2025 active magnesium hydroxide (MILK OF MAGNESIA) 400 mg/5 mL suspension 15 mL 15 mL, oral, Nightly PRN, constipation, Starting on Fri05/02/25 at 1114, Follow dose with 8 oz of water. 05/02/2025 active melatonin tablet 3 mg 3 mg, oral, Nightly PRN, sleep, Starting on Fri05/02/25 at 1114 05/02/2025 active polyethylene glycol (MIRALAX) packet 17 g 17 g, oral, Daily, First dose on Fri05/02/25 at 1145 05/02/2025 active cariprazine (VRAYLAR) capsule 7.5 mg 7.5 mg, oral, Daily, First dose on Fri05/02/25 at 0900 05/01/2025 05/02/20 active potassium chloride 20 mEq/100 mL IVPB (premix) - ADS Override Pull Starting on Fri05/01/25 at 0633, For 1 dose, Created by cabinet override For central line administration only. 05/01/2025 05/01/20 completed potassium chloride 20 mEq/100 mL IVPB (premix) 20 mEq 20 mEq, intravenous, at 100 mL/hr, Administer over 1 Hours, Every 1 hour, First dose on Fri05/01/25 at 0530, For 2 doses, For central line administration only. 05/01/2025 05/01/20 completed potassium phosphates in sodium chloride 0.9 % IVPB 15 mmol 15 mmol, intravenous, Administer over 4 Hours, Once, On Fri05/01/25 at 0530, For 1 dose, Each 3 mmol contains 4.4 mEq potassium. 05/01/2025 05/01/20 completed insulin lispro injection 1-6 Units 1-6 Units, subcutaneous, 3 times daily before meals, First dose on [place] 05/01/25 at 0730, Indication: Total Daily Dose (TDD) LESS than 40 units Correction Scale: Low Dose Administer with meal and/or mealtime dose of insulin to correct high blood glucose If mealtime insulin dose not given (e.g. patien 05/01/2025 active oxyCODONE (ROXICODONE) immediate release tablet 5 mg [Order 1 Start] Name: oxyCODONE (ROXICODONE) immediate release tablet 5 mg Signed Summary: 5 mg, oral, Every 4 hours PRN, moderate pain, Starting on Fri05/01/25 at 1245 [Order 1 End] [Order 2 Start] Name: oxyCODONE (ROXICODONE) immediate release tablet 10 mg Signed Summary: 10 mg, oral, Every 4 hour 05/01/2025 active revefenacin (YUPELRI) 175 mcg/3 mL nebulizer solution 175 mcg 175 mcg, nebulization, Daily, First dose on [place] 05/01/25 at 1030 05/01/2025 active cloNIDine (CATAPRES) tablet 0.2 mg 0.2 mg, oral, Every 8 hours scheduled, First dose (after last modification) on 05/02/25 at 1615 04/30/2025 05/02/20 active albumin human 5 % infusion 25 g 25 g, intravenous, Once, On 04/30/25 at 0800, For 1 dose, Do not exceed 4 mL/minute in patients with normal plasma volume; 10 mL/minute in patients with hypoproteinemia., Indications: hypovolemic shock 04/30/2025 04/30/20 completed calcium gluconate 2 gram/100 mL IVPB (premix) 2 g 2 g, intravenous, at 100 mL/hr, Administer over 60 Minutes, Once, On 04/30/25 at 0615, For 1 dose 04/30/2025 04/30/20 completed formoterol (PERFOROMIST) 20 mcg/2 mL nebulizer solution 20 mcg 20 mcg, nebulization, 2 times daily, First dose on 04/30/25 at 1045 04/30/2025 active gabapentin (NEURONTIN) capsule 600 mg 600 mg, oral, Every 12 hours scheduled, First dose on 04/30/25 at 1045 04/30/2025 active guaiFENesin (MUCINEX) 12 hr tablet 600 mg 600 mg, oral, Every 12 hours scheduled, First dose on Fri04/30/25 at 1745, Administer with plenty of fluids to ensure proper action. Do not crush, chew, or split. 04/30/2025 active ipratropium-albutero L (DUONEB) 0.5-2.5 mg/3 mL nebulizer solution 3 mL 3 mL, nebulization, Every 6 hours PRN, wheezing, Starting on Fri04/29/25 at 2253 04/30/2025 active lamoTRIgine (LaMICtal) tablet 200 mg [Order 1 Start] Name: lamoTRIgine (LaMICtal) tablet 200 mg Signed Summary: 200 mg, oral, Every morning, First dose on Fri04/30/25 at 1045 [Order 1 End] [Order 2 Start] Name: lamoTRIgine (LaMICtal) tablet 300 mg Signed Summary: 300 mg, oral, Every evening, First dose on Fri04/30/25 at 1800 [Order 2 End 04/30/2025 active pantoprazole (PROTONIX) 40 mg EC tablet Take 1 tablet (40 mg total) by mouth 1 (one) time each day before breakfast for 14 days. Do not crush, chew, or split. 04/30/2025 active predniSONE (DELTASONE) tablet 15 mg 15 mg, oral, Daily, First dose on Fri04/30/25 at 1045 04/30/2025 active mupirocin (BACTROBAN) 2 % ointment 1 Application 1 Application, Each Nostril, 2 times daily, First dose on Fri04/29/25 at 1330, For 10 doses, Total of 10 doses, including any pre-operative doses received. Request from pharmacy if additional product needed. 04/29/2025 05/04/20 active ceFAZolin (ANCEF) 2 g in sterile water 20 mL IV syringe 2 g, intravenous, Administer over 3 Minutes, Every 8 hours, First dose on Fri04/29/25 at 1930, For 5 doses, Phase II/On Unit, Indication: Prophylaxis-Surgica l 04/29/2025 05/01/20 completed insulin regular in NS 100 unit/100 mL (1 unit/mL) IV 0.5-20 Units/hr (0.5-20 mL/hr), intravenous, Continuous, Starting on Fri04/29/25 at 1330, Phase II/On Unit, GOAL EFFECT: BG range 120-170 mg/dL (Cardiac Surgery) Titrate per insulin infusion calculator If enteral / parenteral nutrition is stopped abruptly, REDUCE the insulin infusion rate by 50%. 1. 04/29/2025 05/01/20 aborted chlorhexidine (PERIDEX) 0.12 % solution 15 mL 15 mL, Mouth/Throat, Every 12 hours, First dose on Fri04/29/25 at 1600, Phase II/On Unit 04/29/2025 04/30/20 aborted niCARdipine (CARDENE) 25 mg in sodium chloride 0.9 % 250 mL (0.1 mg/mL) infusion 2.5-15 mg/hr (25-150 mL/hr), intravenous, Continuous, Starting on Fri04/29/25 at 1345, GOAL EFFECT: SBP LESS than 150 mmHg INITIAL RATE: 5 mg/hr TITRATION DOSE: 2.5 mg/hr TITRATION FREQUENCY: 5 min CONTACT PRESCRIBER: -SBP LESS than 90 mmHg -SBP GREATER than 180 mmHg * Individual cases 04/29/2025 04/30/20 aborted albumin human 5 % infusion 12.5 g 12.5 g, intravenous, Once, On Fri04/29/25 at 1630, For 1 dose, Do not exceed 4 mL/minute in patients with normal plasma volume; 10 mL/minute in patients with hypoproteinemia., Indications: hypovolemic shock 04/29/2025 04/29/20 completed aspirin suppository 300 mg 300 mg, rectal, Daily, First dose on Fri04/29/25 at 1330, Phase II/On Unit 04/29/2025 04/29/20 aborted dexmedeTOMIDine (PRECEDEX) infusion 400 mcg in 0.9 % sodium chloride 100 mL (4 mcg/mL) - CNR intravenous, Continuous PRN, Starting on Fri04/29/25 at 0714, Anesthesia Intraprocedure 04/29/2025 04/29/20 aborted electrolyte-R (PLASMALYTE-A, NORMOSOL-R (PH 7.4)) infusion 100 mL/hr, intravenous, Continuous, Starting on Fri04/29/25 at 1500, For 5 hours 04/29/2025 04/29/20 completed HYDROmorphone (DILAUDID) injection 0.5 mg 0.5 mg, intravenous, Once, On Fri04/29/25 at 1845, For 1 dose 04/29/2025 04/29/20 completed magnesium sulfate 2 gram/50 mL (4 %) IVPB 2 g 2 g, intravenous, at 25 mL/hr, Administer over 2 Hours, Once, On Fri04/29/25 at 1330, For 1 dose, Phase II/On Unit 04/29/2025 04/29/20 completed pantoprazole (PROTONIX) injection 40 mg 40 mg, intravenous, Administer over 2 Minutes, Every 24 hours, First dose on Fri04/29/25 at 1330, Phase II/On Unit, Patient MUST have BOTH: -Strict NPO (unable to take oral or liquid PPI) -Contraindication to H2RA Pantroprazole - IV push: Reconstitute powder for injection with 10 mL NS; final concent 04/29/2025 04/29/20 aborted acetaminophen (TYLENOL) 325 mg tablet Take 2 tablets (650 mg total) by mouth every 6 (six) hours if needed for mild pain for up to 10 days. 04/29/2025 active aspirin 81 mg EC tablet Take 1 tablet (81 mg total) by mouth 1 (one) time each day. 04/29/2025 active dextrose (D50W) 50% injection 12.5 g 12.5 g, intravenous, Every 15 min PRN, low blood sugar, moderate hypoglycemia *Patient is Unconscious, NPO, unable to swallow: BG 54 - 69 mg/dl*, Starting on Fri04/29/25 at 1307 04/29/2025 active dextrose (D50W) 50% injection 25 g 25 g, intravenous, Every 15 min PRN, low blood sugar, severe hypoglycemia *Patient is Unconscious, NPO, unable to swallow: BG LESS than 54 mg/dL*, Starting on Fri04/29/25 at 1307 04/29/2025 active dextrose 15 gram/60 mL oral solution 15 g 15 g, oral, Every 15 min PRN, low blood sugar, hypoglycemia *Patient conscious AND able to drink and swallow safely*, Starting on Fri04/29/25 at 1307 04/29/2025 active dextrose 15 gram/60 mL oral solution 30 g 30 g, oral, Every 15 min PRN, low blood sugar, hypoglycemia *Patient conscious AND able to drink and swallow safely*, Starting on Fri04/29/25 at 1307 04/29/2025 active Glucagon HCl (rDNA) injection 1 mg 1 mg, intramuscular, Once as needed, low blood sugar, severe hypoglycemia, Starting on Fri04/29/25 at 1307, For 1 dose 04/29/2025 active naloxone (NARCAN) injection 0.04 mg 0.04 mg, intravenous, As needed, opioid reversal, IV Push every 1 min for 10 doses, Starting on Fri04/29/25 at 1827, For 10 doses, To Dilute: -Use 0.4 mg/mL vial , withdraw 1 mL and add 9 mL NS -FOLLOWING DILUTION, dose of 0.04 mg = 1 mL For PARTIAL Opioid Reversal: -For respiratory rate LESS than 1 04/29/2025 active nicotine (NICODERM CQ) 14 mg/[address] 1 patch on the skin 1 (one) time each day. 04/29/2025 active ondansetron (PF) (ZOFRAN) injection 4 mg 4 mg, intravenous, Every 6 hours PRN, nausea, vomiting, Starting on Fri04/29/25 at 1307 04/29/2025 active sodium chloride 0.9 % flush 10 mL [Order 1 Start] Name: Maintain IV access Signed Summary: Until discontinued, Starting on Fri04/29/25 at 1308, Until Specified [Order 1 End] [Order 2 Start] Name: Saline lock IV Signed Summary: Routine, Once, On Fri04/29/25 at 1308, For 1 occurrence, When tolerating PO fluids [Order 2 End] [Order 3 Sta 04/29/2025 active albuterol 2.5 mg /3 mL (0.083 %) nebulizer solution Take 3 mL (2.5 mg total) by nebulization every 6 (six) hours if needed for wheezing. 04/20/2025 active predniSONE (DELTASONE) 20 mg tablet Take 3 tablets (60 mg total) by mouth 1 (one) time each day for 5 days. 04/20/2025 active furosemide (LASIX) 20 mg tablet Take 1 tablet (20 mg total) by mouth 1 (one) time each day. 04/05/2025 active enoxaparin (LOVENOX) 100 mg/mL syringe Inject under the skin. 05/03/20 25 aborted cariprazine (Vraylar) 1.5 mg (1)- 3 mg (6) capsule,dose pack Take 7.5 mg by mouth 1 (one) time each day. 7.5 MG DAILY 04/21/20 25 aborted ipratropium (ATROVENT) 21 mcg (0.03 %) nasal spray Administer 2 sprays into each nostril every 12 (twelve) hours. 04/21/20 25 aborted methadone HCl (METHADOSE ORAL) Take 40 mg by mouth 1 (one) time each day with breakfast. Max Daily Amount: 40 mg 04/21/20 25 aborted siniceqj-tmlyhhqip-e examethasone (MAXITROL) 3.5mg/mL-10,000 unit/mL-0.1 % ophthalmic suspension 1 drop every 6 (six) hours. Seek further care if there is no improvement after 2 days 04/21/20 25 aborted albuterol HFA (PROAIR HFA ; PROVENTIL HFA ; VENTOLIN HFA) 90 mcg/actuation inhaler Sig - Route: take 2 puffs qid or as needed / needs office visit - Inhalation active albuterol HFA (PROAIR HFA ; PROVENTIL HFA ; VENTOLIN HFA) 90 mcg/actuation inhaler Sig - Route: take 2 puffs qid or as needed / needs office visit - Inhalation active apixaban (ELIQUIS) 5 mg tablet Take 1 tablet (5 mg total) by mouth 2 (two) times a day. active atorvastatin (LIPITOR) 40 mg tablet Take 1 tablet (40 mg total) by mouth at bedtime. active cadexomer iodine (Iodosorb) 0.9 % gel Apply 1 Application topically 1 (one) time each day if needed for wound care. 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 7.5 MG DAILY active cariprazine (VRAYLAR) 1.5 mg capsule 1 capsule (1.5 mg total) 1 (one) time each day. active cariprazine (Vraylar) 6 mg capsule Take 1 capsule (6 mg total) by mouth 1 (one) time each day. active cloNIDine (CATAPRES) 0.2 mg tablet Take 1 tablet (0.2 mg total) by mouth 3 (three) times a day. active gabapentin (NEURONTIN) 600 mg tablet Take 1 tablet (600 mg total) by mouth at bedtime. active lamoTRIgine (LaMICtal) 200 mg tablet 200 IN THE AM, 300 IN THE PM active losartan (COZAAR) 25 mg tablet Take 2 tablets (50 mg total) by mouth at bedtime. active methadone (DOLOPHINE) 10 mg/mL concentrated solution Take 3 mL (30 mg total) by mouth at bedtime. Max Daily Amount: 30 mg active methadone (DOLOPHINE) 10 mg/mL concentrated solution Take 4 mL (40 mg total) by mouth 1 (one) time each day. Max Daily Amount: 40 mg active methadone HCl (METHADONE ORAL) Take by mouth. 38 IN THE AM/36 IN THE PM active mometasone-formotero l (Dulera) 200-5 mcg/actuation inhaler Inhale 2 puffs by mouth 2 (two) times a day. Rinse mouth with water after use to reduce aftertaste and incidence of candidiasis. Do not swallow. active montelukast (SINGULAIR) 10 mg tablet Take 1 tablet (10 mg total) by mouth at bedtime. active mupirocin (BACTROBAN) 2 % ointment Apply topically 3 (three) times a day. active predniSONE (DELTASONE) 5 mg tablet Take 3 tablets (15 mg total) by mouth 1 (one) time each day. active pyRIDostigmine (MESTINON) 60 mg tablet Take 1 tablet (60 mg total) by mouth 3 (three) times a day. active Allergies Allergen Reaction Severity Comment Documented Date Source Status RISPERIDONE 04/21/2025 [facility] N active BENZTROPINE Ataxia, hypotension, slurred speech 12/13/2024 [facility] N active BUPRENORPHINE-N ALOXONE DISORIENTATED Hypotension 12/13/2024 [facility] N active LITHIUM RENAL FAILURE 12/13/2024 [facility] N active NAFCILLIN RASH 12/13/2024 [facility] N active MIRTAZAPINE SHORTNESS OF BREATH 12/09/2024 [facility] N active PREGABALIN 12/09/2024 [facility] A N active TIAGABINE 11/22/2024 [facility] N active ZIPRASIDONE HCL ?LIVER ENZYM ES ELEVATED 11/22/2024 [facility] N active Problems Problem Status Onset Date Problem Type Date of Resoluti on Source Asthma exacerbation active 2024-12-09 ProblemAct [facility] Allergic rhinitis active 2024-11-22 ProblemAct [facility] Hypersomnia active 2024-12-09 ProblemAct [facility]IT[facility] Nonrheumatic mitral valve regurgitation active 2024-12-13 ProblemAct [facility] Schizophreniform disorder ([facility] V24, [facility] V28) active 2024-11-22 ProblemAct [facility] Hyperlipidemia active 2024-12-09 ProblemAct [facility] Pancytopenia ([facility] V24, [facility] V28) active 2024-12-09 ProblemAct [facility] Depressive disorder active 2024-11-22 ProblemAct [facility] Elevated troponin active 2024-12-09 ProblemAct [facility] Cirrhosis ([facility] V24, [facility] V28) active 2024-12-09 ProblemAct [facility] Chronic diastolic congestive heart failure ([facility] V24, [facility] V28) active 2025-04-06 ProblemAct [facility] COPD (chronic obstructive pulmonary disease) ([facility] V24, [facility] [place] V28) active 2024-12-09 ProblemAct [facility]_THS[facility]AN Alcohol abuse active 2024-11-22 ProblemAct [facility]_T HSFRAN Hypothyroidism active 2024-11-22 ProblemAct [facility]_ THSFRAN Gout active 2024-11-22 ProblemAct [facility]_THSFR AN Acute hypoxic respiratory failure ([facility] V24, [facility] [place] V28) active 2024-12-09 ProblemAct [facility]_THSFRAN S/P MVR (mitral valve repair) active 2025-04-30 ProblemAct [facility]_THSFRAN Hepatitis C active 2024-11-22 ProblemAct [facility]_THS OSITO Pulmonary embolus, left ([facility] [place] V24, [facility] V28) active 2024-12-09 ProblemAct [facility]_THS[facility]AN Hypertension active 2024-12-09 ProblemAct [facility]_TH SFRAN Myasthenia gravis ([facility] [place] V24, [facility] [place] V28) active 2024-12-09 ProblemAct [facility]_THSFRAN Immunizations Vaccine Date Source Lot Number Status Influenza, Unspecified 06/24/2005 [facility]_THSFRAN co mpleted Influenza, Unspecified 06/24/2005 [facility]_THSFRAN co mpleted Pneumococcal polysaccharide 23 valent (Pneumovax 23) 2yo and older 07/05/2004 [facility]_THSFRAN com pleted Pneumococcal polysaccharide 23 valent (Pneumovax 23) 2yo and older 07/05/2004 [facility]_THSFRAN com pleted Encounters Encounter Type Encounter Reason Primary Diagnosis Location Date In[place] Nonrheumatic mitral (valve) insufficiency [place] [facility] [place] Pre[place] Exam En[place] for ot [place] pre[place] [facility] [place] Care Team Organization Name Specialty Phone Email Start Date End Da te [facility] Pushpa Alonzo MD Primary Care 04/22/2025 [facility] Pushpa Alonzo MD Primary Care 04/21/2025
--- OUTSIDE RECORDS SUMMARY | 2025-05-12 14:37 | XMS_ITS | Clinical Summary ---
Author Organization [facility] [place] [facility] Address [address] [place] [address] Phone Care Team Providers Care Mechanic General Operational Test Name Role Phone Pushpa Alonzo MD Primary Care Provider [phone] Allergies Active Allergy Reactions Criticality Noted Date Comments Benztropine 12/13/2024 Ataxia, hypotension, slurred speech Tiagabine 11/22/2024 Ziprasidone Hcl 11/22/2024 ?LIVER ENZYMES ELEVATED [place] 12/13/2024 RENAL FAILURE Pregabalin Medium 12/09/2024 Nafcillin Rash 12/13/2024 Mirtazapine Shortness of breath High 12/09/2024 Risperidone 04/21/2025 Buprenorphine-Naloxone Dizziness,Disorie nta heidi Medium 12/13/2024 Hypotension Medications gabapentin (NEURONTIN) 600 mg tablet Take 1 tablet (600 mg total) by mouth 2 (two) times a day. Active lamoTRIgine (LaMICtal) 200 mg tablet 200 IN THE AM, 300 IN THE PM Active montelukast (SINGULAIR) 10 mg tablet Take 1 tablet (10 mg total) by mouth at bedtime. Active albuterol HFA (PROAIR HFA ; PROVENTIL HFA ; VENTOLIN HFA) 90 mcg/actuation inhaler Sig - Route: take 2 puffs qid or as needed / needs office visit - Inhalation Active apixaban (ELIQUIS) 5 mg tablet Take 1 tablet (5 mg total) by mouth 2 (two) times a day. Active mometasone-form oterol (Dulera) 200-5 mcg/actuation inhaler Inhale 2 puffs by mouth 2 (two) times a day. Rinse mouth with water after use to reduce aftertaste and incidence of candidiasis. Do not swallow. Active pyRIDostigmine (MESTINON) 60 mg tablet Take 1 tablet (60 mg total) by mouth 3 (three) times a day. Active atorvastatin (LIPITOR) 40 mg tablet Take 1 tablet (40 mg total) by mouth at bedtime. Active cloNIDine (CATAPRES) 0.2 mg tablet Take 1 tablet (0.2 mg total) by mouth 3 (three) times a day. Active methadone (DOLOPHINE) 10 mg/mL concentrated solution Take 4 mL (40 mg total) by mouth 1 (one) time each day. Active methadone (DOLOPHINE) 10 mg/mL concentrated solution Take 3 mL (30 mg total) by mouth at bedtime. Active predniSONE (DELTASONE) 5 mg tablet Take 3 tablets (15 mg total) by mouth 1 (one) time each day. Active cadexomer iodine (Iodosorb) 0.9 % gel Apply 1 Application topically 1 (one) time each day if needed for wound care. 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 POOL Active cariprazine (VRAYLAR) 1.5 mg capsule 1 capsule (1.5 mg total) 1 (one) time each day. Active cariprazine (Vraylar) 6 mg capsule Take 1 capsule (6 mg total) by mouth 1 (one) time each day. Active acetaminophen (TYLENOL) 325 mg tablet Take 2 tablets (650 mg total) by mouth every 6 (six) hours if needed for mild pain for up to 10 days. 025 2024 Active aspirin 81 mg EC tablet Take 1 tablet (81 mg total) by mouth 1 (one) time each day. 30 each 1 025 2025 Active nicotine (NICODERM CQ) 14 mg/[address] 1 patch on the skin 1 (one) time each day. 30 each 025 2024 Active pantoprazole (PROTONIX) 40 mg EC tablet Take 1 tablet (40 mg total) by mouth 1 (one) time each day before breakfast for 14 days. Do not crush, chew, or split. 14 each 025 2024 Active furosemide (Lasix) 20 mg tablet Take 1 tablet (20 mg total) by mouth 1 (one) time each day. 30 each 025 2025 Active potassium chloride (KLOR-CON M20) 20 mEq CR tablet Take 1 tablet (20 mEq total) by mouth 1 (one) time each day. Tablet may be swallowed whole (do not crush/chew/suck on) OR broken in half and each half swallowed separately OR dissolved (whole tablet) in ~4 ounces of water (allow ~2 minutes to dissolve, stir well and administer immediately). 30 each 025 2025 Active cariprazine (Vraylar) 1.5 mg (1)- 3 mg (6) capsule,dose pack Take 7.5 mg by mouth 1 (one) time each day. 7.5 MG DAILY 2024 Discontinued losartan (COZAAR) 25 mg tablet Take 2 tablets (50 mg total) by mouth 1 (one) time each day with breakfast. 2024 Discontinued(S top Taking at Discharge) predniSONE (DELTASONE) 20 mg tablet Take 1 tablet (20 mg total) by mouth 1 (one) time each day. 2024 Discontinued ipratropium (ATROVENT) 21 mcg (0.03 %) nasal spray Administer 2 sprays into each nostril every 12 (twelve) hours. 2024 Discontinued(S cristiana effects) methadone HCl (METHADONE ORAL) Take by mouth. 38 IN THE AM/36 IN THE PM 2024 Discontinued(D ose adjustment) mupirocin (BACTROBAN) 2 % ointment Apply topically 3 (three) times a day. 2024 Discontinued(D iscontinued by another clinician) furosemide (LASIX) 20 mg tablet Take 1 tablet (20 mg total) by mouth 1 (one) time each day. 30 each 025 2024 Discontinued(S top Taking at Discharge) cariprazine (VRAYLAR) 1.5 mg capsule Take 1 capsule (1.5 mg total) by mouth 1 (one) time each day. 2024 Discontinued(D ose adjustment) predniSONE (DELTASONE) 20 mg tablet Take 5.5 tablets (110 mg total) by mouth 1 (one) time each day. 10 tablet 025 2024 Discontinued(T herapy completed) predniSONE (DELTASONE) 20 mg tablet Take 3 tablets (60 mg total) by mouth 1 (one) time each day for 5 days. 15 each 025 2024 Discontinued(D ose adjustment) albuterol 2.5 mg /3 mL (0.083 %) nebulizer solution Take 3 mL (2.5 mg total) by nebulization every 6 (six) hours if needed for wheezing. 75 mL 2024 Discontinued(D uplicate order) methadone HCl (METHADOSE ORAL) Take 40 mg by mouth 1 (one) time each day with breakfast. Max Daily Amount: 40 mg 2024 Discontinued(D ose adjustment) neomycin-polymy triston-dexamethaso ne (MAXITROL) 3.5mg/mL-10,000 unit/mL-0.1 % ophthalmic suspension 1 drop every 6 (six) hours. Seek further care if there is no improvement after 2 days 2024 Discontinued(S top Taking at Discharge) enoxaparin (LOVENOX) 100 mg/mL syringe Inject under the skin. 2024 Discontinued(S top Taking at Discharge) senna-docusate (PERICOLACE) 8.6-50 mg per tablet Take 2 tablets by mouth 2 (two) times a day for 7 days. 28 each 025 2024 oxyCODONE (ROXICODONE) 5 mg immediate release tablet Take 1 tablet (5 mg total) by mouth every 6 (six) hours if needed for moderate pain or severe pain for up to 5 days. Max Daily Amount: 20 mg 20 tablet 025 2024 guaiFENesin (MUCINEX) 600 mg 12 hr tablet Take 2 tablets (1,200 mg total) by mouth 2 (two) times a day for 7 days. Do not crush, chew, or split. 28 each 025 2024 Active Problems Problem Noted Date Diagnosed Date S/P MVR (mitral valve repair) 04/30/2025 Chronic diastolic congestive heart failure (CMS/HCC V24, CMS/HCC V28) 04/06/2025 Assessment & Plan (04/06/2025 12:33 PM EDT): The patient's physical exam is consistent with excess volume with adventitious lung sounds/reduced lung sounds on the right base concerning for pleural effusion, weight gain, abdominal distention, edema, and orthopnea necessitating that he sleeps in his recliner chair. As such, we will initiate diuretic therapy at least until the time that he can get his valve Surgery. Will start with furosemide 40 mg in the morning and 20 mg in the afternoon for 3 days and then 20 mg daily thereafter. Will discontinue his amlodipine to allow blood pressure room to facilitate diuresis. Should the patient symptoms fail to improve, recommend ER evaluation at [facility] as cardiac surgery can be involved in his care here. The patient and his sister understand and agree Nonrheumatic mitral valve regurgitation 12/14/19 25 Overview (04/06/2025): -Noted during hospitalization 10/2024 showing mitral valve prolapse with torn mitral cord and severe MR, representing progression of known disease -OLIVER 01/03/2025 showed normal LVEF 55 to 60%, no wall motion abnormalities, medial segment (A3) of the anterior leaflet is mildly prolapsed, medial scallop (P3) of the posterior leaflet is mildly prolapsed, posterior leaflet has flail involving the middle (P2) scallop, and ruptured mitral chordae associate with the P2 scallop with severe regurgitation with an anteriorly directed jet. The ascending aorta is mildly dilated at 4.4 cm Assessment & Plan (04/06/2025 12:30 PM EDT): The patient saw Dr. Montez today in consultation for his mitral valve surgery. He is in need of pulmonology referral as well as heart catheterization. I have scheduled the patient for his premitral valve catheterization, and have taken the liberty of referring the patient to pulmonology. Assessment & Plan (12/13/2024 12:42 PM EDT): During recent hospitalization, echocardiogram revealed mitral valve prolapse with torn mitral cord and severe mitral regurgitation. When compared with the echocardiogram report from [facility] 09/27/23, this shows progression of known disease. [...] extremity edema. Hypertension 12/09/2024 Assessment & Plan (04/06/2025 12:28 PM EDT): Patient's blood pressure somewhat soft in office today. He is not dizzy. However, to facilitate diuresis, will discontinue amlodipine and begin furosemide as below. Assessment & Plan (12/13/2024 12:40 PM EDT): BP is 106/70 without symptoms of lightheadedness or near-syncope. No changes for now, continue with amlodipine, clonidine and losartan as prescribed. Hyperlipidemia 12/09/2024 Assessment & Plan (04/06/2025 12:30 PM EDT): I do not have a recent lipid profile. Will update with his preprocedure labs. Acute hypoxic respiratory fa ilure ([facility] V24, [facility] V28) 12/09/2024 COPD (chronic obstructive pu lmonary disease) ([facility] V24, [facility] V28) 12/09/2024 Cirrhosis ([facility] V24, [facility] V28) 12/09/2024 Myasthenia gravis ([facility] V24, [facility] V28) Hypersomnia 12/09/2024 Assessment & Plan (04/06/2025 12:35 PM EDT): The patient has a history of hypersomnia but is on very high dose clonidine 0.2 mg 3 times daily. The patient is essentially unable to stay awake during our office visit. I placed calls to his user experience architect, Edward Silva, but unfortunately, I was disconnected and transferred multiple times while trying to reach her. As such, I am asking our office send her this note. I was hoping to talk with her to determine if there were perhaps alternate means of controlling his anxiety that are not so sedating and/or contributing to his hypersomnolence. We will fax this note over to her office for review Pulmonary embolus, left ([facility] V24, [facility] V2 8) 12/09/2024 Asthma exacerbation 12/09/2024 Elevated troponin 12/09/2024 Pancytopenia ([facility] V24, [facility] V28) 12/10/19 25 Alcohol abuse 11/22/2024 Allergic rhinitis 11/22/2024 Depressive disorder 11/22/2024 Gout 11/22/2024 Hepatitis C 11/22/2024 Hypothyroidism 11/22/2024 Schizophreniform disorder ([facility] V24, [facility] V28) 11/22/2024 Resolved Problems Problem Noted Date Diagnosed Date Resolved Date Mitral regurgitation 04/29/2025 025 Encounters Date Type Department Care Team Description 05/06/2025 Telephone [facility] CV Pre Admission Testing [address] [place] [id number] Ricarda Lewis, LAUREL VNA inquiry 05/05/2025 Telephone [facility] CV Pre Admission Testing [address] [place] [id number] Ricarda Lewis, LAUREL Follow up discharge call 04/29/2025 7:15 AM EDT - 04/29/2025 1:55 PM EDT Surgery [facility] OR [address] [place] [phone] Jam Montez MD REPAIR VALVE MITRAL [[id number] (CPT )] 04/29/2025 7:12 AM EDT Anesthesia Event [facility] OR [address] [place] [id number] Hernan Pedraza MD 04/29/2025 5:51 AM EDT - 05/03/2025 4:58 PM EDT Hospital Encounter [facility] CV Surg Card [address] [place] [address] Jam Montez MD Nonrheumatic mitral valve regurgitation (Primary Dx); S/P MVR (mitral valve repair) Discharge Disposition: Home-Health Care Svc 04/25/2025 Telephone [facility] CV Pre Admission Testing [address] [place] [address] Ricarda Lewis, LAUREL Mail Truck Driver 04/21/2025 9:00 AM EDT Consult [facility] CV Pre Admission Testing [address] [place] [address] Ira Bauer PA Pre-op testing (Primary Dx); SOB (shortness of breath); IFG (impaired fasting glucose); Drug abuse ([facility] V24, [facility] V28); Hypothyroidism, unspecified type; 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 ([facility] V24); Abuse of other non-psychoactive substances; Myasthenia gravis ([facility] V24, [facility] V28); Chronic obstructive pulmonary disease, unspecified COPD type ([facility] V24, [facility] V28); Nonrheumatic mitral valve regurgitation; Primary hypertension; Chronic diastolic congestive heart failure ([facility] V24, [facility] V28); Cirrhosis of liver without ascites, unspecified hepatic cirrhosis type ([facility] V24, [facility] V28); Hyperlipidemia, unspecified hyperlipidemia type; Schizophreniform disorder ([facility] V24, [facility] V28); Hypersomnia 04/21/2025 Telephone [facility] CV Pre Admission Testing [address] [place] [address] Ricarda Lewis, LAUREL Methadone Clinic 04/21/2025 Telephone Cardiothoracic Surgery [facility] [address] [place] [address] Lupe Yusuf LPN new prescription 04/20/2025 Telephone [facility] CV Pre Admission Testing [address] [place] [address] Ricarda Lewis RN PSO 04/19/2025 8:21 PM EDT - 04/20/2025 2:05 AM EDT Emergency [facility] Emergency [address] [place] [address] Emmett Thomas MD Shortness of breath (Primary Dx) Discharge Disposition: Home or Self Care 04/18/2025 8:30 AM EDT - 04/18/2025 9:30 AM EDT Surgery [facility] Cardiac Package Reinspector [address] [place] [address] Johnnie Mckinney MD Left heart catheterization [[id number] (CPT )] 04/18/2025 7:52 AM EDT - 04/18/2025 11:59 PM EDT Hospital Encounter [facility] Cardiac Package Reinspector [address] [place] [address] Johnnie Mckinney MD Nonrheumatic mitral valve regurgitation Discharge Disposition: Home or Self Care 04/14/2025 8:30 AM EDT Ancillary Procedure Pulmonolgy - [address] [phone] Chronic obstructive pulmonary disease, unspecified COPD type (CMS/HCC V24, CMS/HCC V28) 04/13/2025 11:45 AM EDT Consult Pulmonolgy - [place] [address] [phone] Vonnie Medina MD Chronic obstructive pulmonary disease, unspecified COPD type (CMS/HCC V24, CMS/HCC V28) (Primary Dx) 04/08/2025 Telephone [facility] [address] [phone] Tiffany Ortiz NP BHN 04/07/2025 10:42 PM EDT - 04/08/2025 3:02 AM EDT Emergency [facility] Emergency [address] [place] [phone] Joseph Gregg MD Shortness of breath (Primary Dx); Anxiety Discharge Disposition: Home or Self Care 04/05/2025 2:34 PM EDT - 04/05/2025 11:59 PM EDT Hospital Encounter [facility] Xray [address] [place] [phone] Nonrheumatic mitral valve regurgitation; Acute on chronic diastolic congestive heart failure (CMS/HCC V24, CMS/HCC V28) Discharge Disposition: Home or Self Care 04/05/2025 1:40 PM EDT Office Visit [facility] Cardiology [facility] [address] [facility] [address] [place] [address] Tiffany Ortiz NP Hypertension, unspecified type (Primary Dx); Nonrheumatic mitral valve regurgitation; Acute on chronic diastolic congestive heart failure (CMS/HCC V24, [facility] V28); Hyperlipidemia, unspecified hyperlipidemia type; Hypersomnia 04/05/2025 9:45 AM EDT Consult Vascular Surgery - [place] [address] [place] [phone] Jam Montez MD Mitral valve prolapse (Primary Dx); Nonrheumatic mitral valve regurgitation 04/05/2025 Telephone [facility] [address] [facility] [address] [place] [phone] Johnnie Mckinney MD hospital procedure (cath) 03/31/2025 Telephone [facility] [address] [place] [address] Neftaly Mcintyre NP Weight Gain; Shortness of Breath 03/07/2025 Telephone [facility] [address] [place] [address] John Le MD Weight Gain from Last 3 Months Immunizations Name Administration Dates Next Due Influenza, Unspecified 06/24/2005 Pneumococcal polysaccharide 23 valent (Pneumovax 23) 2yo and older 07/05/2004 Surgical History Surgery Date Site/Laterality Comments TOE AMPUTATION 07/23/2023 - 08/21/2023 Right from frostbite and secondary osteo FOOT SURGERY Bilateral Multiple debridements due to severe B/L foot frostbite Medical History Medical History Date Comments Anxiety Bipolar disorder ([facility] V24, [facility] V28) Rheumatoid arthritis ([facility] V24, [facility] V28) Gout Substance abuse ([facility] V24, [facility] V28) COPD (chronic obstructive pu lmonary disease) ([facility] V24, [facility] V28) Elevated troponin Pancytopenia ([facility] V24, [facility] V28) Cirrhosis ([facility] V24, [facility] V28) Myasthenia gravis ([facility] V24, [facility] V28) Hypertension Acute hypoxic respiratory fa ilure ([facility] V24, [facility] V28) Asthma exacerbation Influenza History of pulmonary embolism Hepatitis C s/p treatment Schizophrenia ([facility] V24, [facility] V28) Asthma Sepsis ([facility] V24, [facility] V28) 12/2016 Due to psoas muscle abscess Osteomyelitis of thoracic sp ine ([facility] V24, [facility] V28) 2017 Mitral regurgitation Hyperlipidemia DVT of leg (deep venous thro mbosis) ([facility] V24, [facility] V28) Depression Hypothyroid Polysubstance abuse ([facility] V24, [facility] V28) History Osteomyelitis ([facility] V24, [facility] V28) 09/2023 D/t severe frostbite of B/L feet PVD (peripheral vascular dis ease) ([facility] V24) Protein C deficiency ([facility] V24) Osteoarthritis TIA (transient ischemic attack) Borderline diabetes Acute kidney injury ([facility] V24) MICHAEL (obstructive sleep apnea) Pneumonia remote Psoas muscle abscess ([facility] V24, [facility] V28) 12/2016 Family History Medical History Relation Name Comments No Known Problems Brother Lung cancer Father 49 ADD / ADHD Mother 86 Asthma Mother 86 LENORA disease Mother 86 Hyperlipidemia Mother 86 Hypertension Mother 86 Mitral valve prolapse Mother 86 ADD / ADHD Sister Asthma Sister LENORA disease Sister Hyperlipidemia Sister Hypertension Sister Mitral valve prolapse Sister Relation Name Status Comments Brother Alive Father 49 Mother 86 Alive Sister Alive Social History Tobacco Use Types Packs/Day Years Used Date Smoking Tobacco: Every Day Cigarettes 0.3 3.6 Started: 2022 Smokeless Tobacco: Never Tobacco Cessation:Ready to Q uit: Not Asked; Counseling Given: Not Answered Comments:Smoking 1 cig. daily Alcohol Use Standard Drinks/Week Comments Yes 0 (1 standard drink = 0.6 oz pur e alcohol) rare Interpersonal Safety Answer Date Record ed Physical Abuse 04/29/2025 Verbal Abuse 04/29/2025 Sex and Gender Information Value Date Recorded Sex Assigned at Male 12/30/2024 2:41 PM EDT Legal Sex Male 3:05 AM EST Gender Identity Male 12/30/2024 2:41 PM EDT Sexual Orientation Straight 12/30/2024 2: 41 PM EDT Obstetrics History Last Filed Vital Signs Vital Sign Reading Time Taken Comments Blood Pressure 120/75 05/03/2025 1:20 PM EDT Pulse 73 05/03/2025 1:20 PM EDT Temperature 36.4 C (97.5 F) 05/03/2025 5:17 AM EDT Respiratory Rate 18 05/03/2025 1:20 PM EDT Oxygen Saturation 97% 05/03/2025 1:20 PM EDT Inhaled Oxygen Concentration - - Weight 94.2 kg (207 lb 11.2 oz) 05/03/2025 5:24 AM EDT Height 182.9 cm (6') 04/29/2025 6:15 AM EDT Body Mass Index 28.17 04/29/2025 6:15 AM EDT Plan of Treatment Upcoming Encounters Date Type Department Care Team (Late st Contact Info) Description 05/26/2025 2:45 PM EDT Office Visit Cardiothoracic Surgery [facility] [address] [place] [address] Jam Montez MD [address] [facility] [address] [place] [address] 05/27/2025 8:40 AM EDT Office Visit [facility] [address] [facility] [address] [place] [address] Neftaly Mcintyre NP [address] [place] [address] [address] [place] [address] 07/15/2025 9:00 AM EDT Office Visit Pulmonolgy - [place] [address] [facility] [address] [place] [address] Vonnie Medina MD [address] [place] [address] Health Maintenance Due Date Last Done Comments Hepatitis A Vaccines (1 of 2 - Risk 2-dose series) 1978 Zoster Vaccines (1 of 2) 2009 Hepatitis B Vaccines (1 of 3 - Risk 3-dose series) 2019 RSV Immunization Adult Patients (1 - Risk 60-74 years 1-dose series) 2019 COVID-19 Vaccine ( - season) 2024 Depression Screening 09/22/2024 Abdominal Aortic Aneurysm (AAA) Screen 11/18/2024 Colorectal Cancer Screening: Colonoscopy 11/18/2024 Medicare Annual Wellness Visit 11/18/2024 Social Influencers of Health Screening 11/18/2024 Influenza Vaccine (#1) 2025 , 10/01/2018, 06/24/2005 Pneumococcal Vaccine: 50+ Years (2 of 2 - PCV) 06/25/2025 06/25/2024, 05/13/2018, 07/05/2004 Falls Risk Assessment 05/03/2026 05/03/2025 Hypertension/CHF/CAD Annual BMP Blood Test 05/03/2026 05/03/2025, 05/02/2025, 05/01/2025, Additional history exists Cholesterol Screening (Lipid Panel) 04/21/2030 04/21/2025, 04/08/2025, 08/28/2005 DTaP,Tdap,and Td Vaccines (2 - Td or [...] 20 months Aged Out No longer eligible based on patient's age to complete this topic Varicella Vaccines Aged Out No longer eligible based on patient's age to complete this topic Medical Devices Implanted Type Area Medical Associate Device Identifier Shelf Expiration Date Model / Serial / Lot Ring Anlplsty Tailor Flex 33mm - [id number] - [id number] Implanted:Qt y: 1 on 04/29/2025 by Jam Montez MD at [facility] Heart Valve N/A: Heart [facility] 08/09/2028 TARP-33 / [id number] / N/A Adhesive Bioglue 10ml Syr Prefill - Sn/A - [id number] Implanted:Qt y: 1 on 04/29/2025 by Jam Montez MD at [facility] Implants N/A: Heart [employer] (FKA CRYOLIFE) [id number] / N/A / [id number] Plate Manubrium - Sn/A - [id number] Implanted:Qt y: 1 on 04/29/2025 by Jam Montez MD at [facility] Internal and External Fixation N/A: Sternum TRISTAN CRANIOMAXILLOFACIAL [id number] / N/A / N/A Plate X - Sn/A - [id number] Implanted:Qt y: 2 on 04/29/2025 by Jam Montez MD at [facility] Internal and External Fixation N/A: Sternum TRISTAN CRANIOMAXILLOFACIAL [id number] / N/A / N/A Screw Sd Locking 2.3x14mm - Sn/A - [id number] Implanted:Qt y: 4 on 04/29/2025 by Jam Montez MD at [facility] Internal and External Fixation N/A: Sternum TRISTAN CRANIOMAXILLOFACIAL [id number] / N/A / N/A Screw Sd Locking 2.3x16mm - Sn/A - [id number] Implanted:Qt y: 18 on 04/29/2025 by Jam Montez MD at [facility] Internal and External Fixation N/A: Sternum TRISTAN CRANIOMAXILLOFACIAL [id number] / N/A / N/A Procedures Procedure Name Priority Date/Time Associated Diagnosis Comments POCT GLUCOSE BLOOD Routine 05/03/2025 12:19 PM EDT POCT GLUCOSE BLOOD Routine 05/03/2025 8: 59 AM EDT COMPLETE BLOOD COUNT Timed 05/03/2025 3:57 AM EDT BASIC METABOLIC PANEL Timed 05/03/2025 3:57 AM EDT MAGNESIUM Timed 05/03/2025 3:57 AM EDT PHOSPHORUS Timed 05/03/2025 3:57 AM EDT POCT GLUCOSE BLOOD Routine 05/02/2025 9: 30 PM EDT POCT GLUCOSE BLOOD Routine 05/02/2025 5: 10 PM EDT POCT GLUCOSE BLOOD Routine 05/02/2025 12:10 PM EDT OXYGEN THERAPY, ADULT Routine 05/02/2025 8:02 AM EDT POCT GLUCOSE BLOOD Routine 05/02/2025 6: 48 AM EDT ACTIVATED PARTIAL THROMBOPLASTIN TIME STAT 05/02/2025 6:44 AM EDT XR CHEST 1 VIEW Timed 05/02/2025 5:24 AM EDT HEPARIN AND LOW MOLECULAR WEIGHT ANTI XA LEVEL Timed 05/02/2025 3:34 AM EDT COMPLETE BLOOD COUNT Timed 05/02/2025 3:34 AM EDT BASIC METABOLIC PANEL Timed 05/02/2025 3:34 AM EDT MAGNESIUM Timed 05/02/2025 3:34 AM EDT CALCIUM, IONIZED Timed 05/02/2025 3:34 AM EDT HEPARIN AND LOW MOLECULAR WEIGHT ANTI XA LEVEL Timed 05/02/2025 12:45 AM EDT POCT GLUCOSE BLOOD Routine 05/01/2025 11:04 PM EDT OXYGEN THERAPY, ADULT Routine 05/01/2025 8:00 PM EDT HEPARIN AND LOW MOLECULAR WEIGHT ANTI XA LEVEL Timed 05/01/2025 6:27 PM EDT POCT GLUCOSE BLOOD Routine 05/01/2025 4: 19 PM EDT HEPARIN AND LOW MOLECULAR WEIGHT ANTI XA LEVEL STAT 05/01/2025 12:57 PM EDT POCT GLUCOSE BLOOD Routine 05/01/2025 12:23 PM EDT OXYGEN THERAPY, ADULT Routine 05/01/2025 8:01 AM EDT POCT GLUCOSE BLOOD Routine 05/01/2025 7: 49 AM EDT XR CHEST 1 VIEW Timed 05/01/2025 6:32 AM EDT OXYGEN THERAPY, ADULT Routine 05/01/2025 6:10 AM EDT OXYGEN THERAPY, ADULT Routine 05/01/2025 6:10 AM EDT CALCIUM, IONIZED Timed 05/01/2025 3:12 AM EDT COMPLETE BLOOD COUNT Timed 05/01/2025 3:12 AM EDT BASIC METABOLIC PANEL Timed 05/01/2025 3:12 AM EDT MAGNESIUM Timed 05/01/2025 3:12 AM EDT PHOSPHORUS Timed 05/01/2025 3:12 AM EDT POCT GLUCOSE BLOOD Routine 05/01/2025 3: 11 AM EDT POCT GLUCOSE BLOOD Routine 05/01/2025 12:39 AM EDT HEMOGLOBIN AND HEMATOCRIT Timed 04/30/2025 9:17 PM EDT POCT GLUCOSE BLOOD Routine 04/30/2025 9: 15 PM EDT POCT GLUCOSE BLOOD Routine 04/30/2025 8: 59 PM EDT POCT GLUCOSE BLOOD Routine 04/30/2025 3: 36 PM EDT HEMOGLOBIN AND HEMATOCRIT Timed 04/30/2025 3:32 PM EDT POCT GLUCOSE BLOOD Routine 04/30/2025 12:46 PM EDT POCT GLUCOSE BLOOD Routine 04/30/2025 9: 56 AM EDT POCT GLUCOSE BLOOD Routine 04/30/2025 8: 26 AM EDT XR CHEST 1 VIEW Timed 04/30/2025 5:13 AM EDT ECG 12-LEAD Routine 04/30/2025 5:03 AM EDT MIXED VENOUS BLOOD GAS Timed 3:52 AM EDT ACUTE KIDNEY INJURY SCORE Routine 04/30/2025 3:47 AM EDT COMPLETE BLOOD COUNT Timed 04/30/2025 3:45 AM EDT BASIC METABOLIC PANEL Timed 04/30/2025 3:45 AM EDT MAGNESIUM Timed 04/30/2025 3:45 AM EDT CALCIUM, IONIZED Timed 04/30/2025 3:45 AM EDT PHOSPHORUS Timed 04/30/2025 3:45 AM EDT ARTERIAL BLOOD GAS Timed 04/30/2025 3: 45 AM EDT POCT GLUCOSE BLOOD Routine 04/30/2025 3: 42 AM EDT POCT GLUCOSE BLOOD Routine 04/30/2025 12:41 AM EDT POCT GLUCOSE BLOOD Routine 04/29/2025 10:27 PM EDT ACTIVATED PARTIAL THROMBOPLASTIN TIME Timed 04/29/2025 8:30 PM EDT PROTHROMBIN TIME WITH INR Timed 04/29/2025 8:30 PM EDT POTASSIUM Timed 04/29/2025 8:30 PM EDT POCT GLUCOSE BLOOD Routine 04/29/2025 8: 29 PM EDT HEMOGLOBIN AND HEMATOCRIT Timed 04/29/2025 8:26 PM EDT OXYGEN THERAPY, ADULT Routine 04/29/2025 8:01 PM EDT POCT GLUCOSE BLOOD Routine 04/29/2025 7: 02 PM EDT POCT GLUCOSE BLOOD Routine 04/29/2025 6: 07 PM EDT POCT BLOOD GAS, ARTERIAL Routine 04/29/2025 5:03 PM EDT POCT GLUCOSE BLOOD Routine 04/29/2025 5: 00 PM EDT POTASSIUM STAT 04/29/2025 4:21 PM EDT ACTIVATED PARTIAL THROMBOPLASTIN TIME STAT 04/29/2025 4:21 PM EDT PROTHROMBIN TIME WITH INR STAT 04/29/2025 4:21 PM EDT HEMOGLOBIN AND HEMATOCRIT STAT 04/29/2025 4:21 PM EDT OXYGEN THERAPY, ADULT Routine 04/29/2025 4:03 PM EDT OXYGEN THERAPY, ADULT Routine 04/29/2025 4:03 PM EDT POCT BLOOD GAS, ARTERIAL Routine 04/29/2025 3:57 PM EDT POCT GLUCOSE BLOOD Routine 04/29/2025 3: 56 PM EDT POCT BLOOD GAS, ARTERIAL Routine 04/29/2025 3:12 PM EDT POCT GLUCOSE BLOOD Routine 04/29/2025 3: 11 PM EDT POCT BLOOD GAS, ARTERIAL Routine 04/29/2025 2:49 PM EDT POCT GLUCOSE BLOOD Routine 04/29/2025 2: 16 PM EDT TRIGLYCERIDES Timed 04/29/2025 2:12 PM EDT ECG 12-LEAD STAT 04/29/2025 1:33 PM EDT XR CHEST 1 VIEW STAT 04/29/2025 1:30 PM EDT XR ABDOMEN 1 VIEW STAT 04/29/2025 1:3 0 PM EDT POCT BLOOD GAS, ARTERIAL Routine 04/29/2025 1:20 PM EDT POCT GLUCOSE BLOOD Routine 04/29/2025 1: 17 PM EDT ARTERIAL BLOOD GAS STAT 04/29/2025 1: 09 PM EDT COMPLETE BLOOD COUNT STAT 04/29/2025 1:08 PM EDT BASIC METABOLIC PANEL STAT 04/29/2025 1:08 PM EDT CALCIUM, IONIZED STAT 04/29/2025 1:08 PM EDT PHOSPHORUS STAT 04/29/2025 1:08 PM EDT MIXED VENOUS BLOOD GAS STAT 1:08 PM EDT PROTHROMBIN TIME WITH INR STAT 04/29/2025 1:08 PM EDT ACTIVATED PARTIAL THROMBOPLASTIN TIME STAT 04/29/2025 1:08 PM EDT HEMOGLOBIN AND HEMATOCRIT Timed 04/29/2025 1:08 PM EDT POTASSIUM Timed 04/29/2025 1:08 PM EDT VENTILATOR, ADULT Routine 04/29/2025 1:0 7 PM EDT POCT ARTERIAL BLOOD GAS CHEM4, Routine 04/29/2025 11:58 AM EDT POCT ARTERIAL BLOOD GAS CHEM4, Routine 04/29/2025 11:00 AM EDT FIBRINOGEN STAT 04/29/2025 10:54 AM EDT Nonrheumatic mitral valve regurgitation PLATELET COUNT STAT 04/29/2025 10:54 AM EDT Nonrheumatic mitral valve regurgitation POCT ARTERIAL BLOOD GAS CHEM4, Routine 04/29/2025 10:32 AM EDT POCT ARTERIAL BLOOD GAS CHEM4, Routine 04/29/2025 10:02 AM EDT POCT ARTERIAL BLOOD GAS CHEM4, Routine 04/29/2025 9:35 AM EDT POCT ARTERIAL BLOOD GAS CHEM4, Routine 04/29/2025 9:11 AM EDT POCT ARTERIAL BLOOD GAS CHEM4, HH Routine 04/29/2025 8:33 AM EDT [facility] INTRA OP ONLY Routine 04/29/2025 8:3 1 AM EDT Nonrheumatic mitral valve regurgitation ANESTHESIA PAC LINE PLACEMENT Routine 04/29/2025 8:30 AM EDT POCT ARTERIAL BLOOD GAS CHEM4, HH Routine 04/29/2025 7:50 AM EDT ANESTHESIA PERIPHERAL BLOCK Routine 04/29/2025 7:25 AM EDT TH AN NERVE BLOCK SAVANNAH (NO CHARGE) Routine 04/29/2025 7:20 AM EDT MD ECHOCARDIOGRAPHY TRANSESOPHAGEAL REAL-TIME W IMG DOC INCL PROBE PLCMNT 04/29/2025 7:12 AM EDT Nonrheumatic mitral valve regurgitation Case Notes 5:30 am arrival time- DR TYPE AND SCREEN STAT 04/29/2025 6:14 AM EDT ACTIVATED PARTIAL THROMBOPLASTIN TIME STAT 04/29/2025 6:14 AM EDT PROTHROMBIN TIME WITH INR STAT 04/29/2025 6:14 AM EDT POCT GLUCOSE BLOOD Routine 04/29/2025 6: 10 AM EDT DRUG ABUSE SCREEN 9A PANEL, URINE STAT 04/29/2025 6:09 AM EDT PREPARE PLATELETS Routine 04/29/2025 6:0 4 AM EDT PREPARE RBC Routine 04/29/2025 6:04 AM EDT OXYGEN THERAPY, ADULT Routine 04/29/2025 6:03 AM EDT XR CHEST 1 VIEW Routine 04/28/2025 10:52 AM EDT US OUTSIDE IMAGES (WITH INTERPRETATION) Routine 04/28/2025 10:51 AM EDT ECG 12-LEAD Routine 04/21/2025 8:57 AM EDT Pre-op testing URINALYSIS WITH REFLEX MICROSCOPIC AND CULTURE Routine 04/21/2025 8:38 AM EDT Pre-op testing CBC WITH AUTO DIFFERENTIAL Routine 04/21/2025 8:38 AM EDT Pre-op testing LIPID PANEL WITH REFLEX TO DIRECT LDL Routine 04/21/2025 8:38 AM EDT 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 ([facility] V24) PREALBUMIN Routine 04/21/2025 8:38 AM EDT Pre-op testing PROTHROMBIN TIME WITH INR Routine 04/21/2025 8:38 AM EDT SOB (shortness of breath) THYROID STIMULATING HORMONE WITH REFLEX FREE T4 Routine 04/21/2025 8:38 AM EDT Pre-op testing Hypothyroidism, unspecified type URINALYSIS WITH REFLEX MICROSCOPIC AND CULTURE Routine 04/21/2025 8:38 AM EDT Pre-op testing TYPE AND SCREEN Routine 04/21/2025 8:38 AM EDT Pre-op testing HEPATIC FUNCTION PANEL Routine 8:38 AM EDT Pre-op testing HEMOGLOBIN A1C Routine 04/21/2025 8:38 AM EDT IFG (impaired fasting glucose) DRUG ABUSE SCREEN 9A PANEL, URINE Routine 04/21/2025 8:38 AM EDT Drug abuse ([facility] V24, [facility] V28) Abuse of other non-psychoactive substances CBC AND DIFFERENTIAL Routine 04/21/2025 8:38 AM EDT Pre-op testing BASIC METABOLIC PANEL Routine 04/21/2025 8:38 AM EDT Pre-op testing ACTIVATED PARTIAL THROMBOPLASTIN TIME Routine 04/21/2025 8:38 AM EDT SOB (shortness of breath) ECG ANNOTATED 04/21/2025 CT ANGIO CHEST WO AND/OR W CONTRAST STAT 04/19/2025 10:31 PM EDT Shortness of breath RESPIRATORY VIRUS PANEL MOLECULAR STUDY STAT 04/19/2025 10:02 PM EDT XR CHEST 1 VIEW STAT 04/19/2025 9:25 PM EDT SST - GOLD Routine 04/19/2025 9:05 PM EDT EXTRA TUBES Routine 04/19/2025 9:05 PM EDT CBC WITH AUTO DIFFERENTIAL STAT 04/19/2025 9:05 PM EDT LIPASE STAT 04/19/2025 9:05 PM EDT B-TYPE NATRIURETIC PEPTIDE STAT 04/19/2025 9:05 PM EDT CBC AND DIFFERENTIAL STAT 04/19/2025 9:05 PM EDT TROPONIN I HIGH SENSITIVITY STAT 04/19/2025 9:05 PM EDT COMPREHENSIVE METABOLIC PANEL STAT 04/19/2025 9:05 PM EDT ECG 12-LEAD STAT 04/19/2025 8:40 PM EDT LEFT HEART CATH Routine 04/18/2025 9:27 AM EDT Nonrheumatic mitral valve regurgitation PROCEDURAL ECG Routine 04/18/2025 8:22 AM EDT PULMONARY FUNCTION TESTING Routine 04/14/2025 8:51 AM EDT Chronic obstructive pulmonary disease, unspecified COPD type (CMS/HCC V24, CMS/HCC V28) CBC WITH AUTO DIFFERENTIAL Routine 04/08/2025 11:00 AM EDT Nonrheumatic mitral valve regurgitation Acute on chronic diastolic congestive heart failure (CMS/HCC V24, CMS/HCC V28) LIPID PANEL WITH REFLEX TO DIRECT LDL Routine 04/08/2025 11:00 AM EDT Hyperlipidemia, unspecified hyperlipidemia type BASIC METABOLIC PANEL Routine 04/08/2025 11:00 AM EDT Nonrheumatic mitral valve regurgitation Acute on chronic diastolic congestive heart failure (CMS/HCC V24, CMS/HCC V28) CBC AND DIFFERENTIAL Routine 04/08/2025 11:00 AM EDT Nonrheumatic mitral valve regurgitation Acute on chronic diastolic congestive heart failure (CMS/HCC V24, CMS/HCC V28) PROTHROMBIN TIME WITH INR Routine 04/08/2025 11:00 AM EDT Nonrheumatic mitral valve regurgitation Acute on chronic diastolic congestive heart failure (CMS/HCC V24, CMS/HCC V28) TROPONIN I HIGH SENSITIVITY Timed 04/08/2025 1:10 AM EDT ECG ANNOTATED 04/08/2025 XR CHEST 2 VIEWS STAT 04/07/2025 11:47 PM EDT ACTIVATED PARTIAL THROMBOPLASTIN TIME STAT 04/07/2025 11:34 PM EDT PROTHROMBIN TIME WITH INR STAT 04/07/2025 11:34 PM EDT VENOUS BLOOD GAS STAT 04/07/2025 11:34 PM EDT CBC WITH AUTO DIFFERENTIAL STAT 04/07/2025 11:34 PM EDT B-TYPE NATRIURETIC PEPTIDE STAT 04/07/2025 11:34 PM EDT MAGNESIUM STAT 04/07/2025 11:34 PM EDT LIPASE STAT 04/07/2025 11:34 PM EDT COMPREHENSIVE METABOLIC PANEL STAT 04/07/2025 11:34 PM EDT CBC AND DIFFERENTIAL STAT 04/07/2025 11:34 PM EDT TROPONIN I HIGH SENSITIVITY Timed 04/07/2025 11:34 PM EDT ECG 12-LEAD Routine 04/06/2025 12:36 PM EDT Hypertension, unspecified type XR CHEST 2 VIEWS Routine 04/05/2025 2:43 PM EDT Nonrheumatic mitral valve regurgitation Acute on chronic diastolic congestive heart failure (CMS/HCC V24, CMS/HCC V28) HEPATITIS C SCREENING Routine 11/25/2005 from Last 3 Months or Most Recently Relevant to Health Maintenance Results * POCT Glucose, blood (05/03/2025 12:19 PM EDT) Only the most recent of30 resultswithin the time period is included. [facility] Glucose POCT 178 70 - 199 mg/dL 05/03/2025 12:19 PM EDT [facility] Comment: Fasting Reference Range: 70-99 mg/dL Non-Fasting Reference Range: 70-199 mg/dL Blood Capillary blood specimen / Unknown 05/03/2025 12:19 PM EDT 05/03/2025 12:20 PM EDT Jam Montez MD LAB POINT OF CARE TE ST DOCKED DEVICE UNSOLICITED RESULTS Final Result [facility] [address] [place] [address], [place] [phone] * (ABNORMAL) Complete blood count (05/03/2025 3:57 AM EDT) Only the most recent of5 resultswithin the time period is included. WBC 6.8 4.0 - 10.5 K/mcL LAB HEMETOLOGY METHOD 05/03/2025 4:40 AM EDT [facility] RBC 2.52(L) 4.70 - 6.00 M/mcL LAB HEMETOLOGY METHOD 05/03/2025 4:40 AM EDT [facility] Hemoglobin 7.8(L) 13.5 - 18.0 g/dL LAB HEMETOLOGY METHOD 05/03/2025 4:40 AM EDT [facility] Hematocrit 23.1(L) 40.0 - 54.0 % LAB HEMETOLOGY METHOD 05/03/2025 4:40 AM EDT [facility] MCV 91.7 78.0 - 100.0 FL LAB HEMETOLOGY METHOD 05/03/2025 4:40 AM EDT [facility] MCH 30.7 25.0 - 33.0 pcg LAB HEMETOLOGY METHOD 05/03/2025 4:40 AM EDT [facility] MCHC 33.5 32.0 - 36.0 g/dL LAB HEMETOLOGY METHOD 05/03/2025 4:40 AM EDT [facility] RDW 15.3 12.1 - 17.7 % LAB HEMETOLOGY METHOD 05/03/2025 4:40 AM EDT [facility] Platelets 90(L) 150 - 450 K/mcL LAB HEMETOLOGY METHOD 05/03/2025 4:40 AM EDT [facility] MPV 8.6 7.4 - 11.4 FL LAB HEMETOLOGY METHOD 05/03/2025 4:40 AM EDT [facility] Blood Venous blood specimen / Unknown Venipuncture / Unknown 05/03/2025 3:57 AM EDT 05/03/2025 4:01 AM EDT us Kalyan GALLO LAB BLOOD ORDERABLES Final Resul t [facility] [address] [place] [address], [place] [phone] * (ABNORMAL) Phosphorus (05/03/2025 3:57 AM EDT) Only the most recent of4 resultswithin the time period is included. Phosphorus 2.4(L) 2.5 - 4.5 mg/dL LAB CHEMISTRY METHOD 05/03/2025 4:34 AM EDT [facility] Blood Venous blood specimen / Unknown Venipuncture / Unknown 05/03/2025 3:57 AM EDT 05/03/2025 4:01 AM EDT us Kalyan GALLO LAB BLOOD ORDERABLES Final Resul t Performing Organization Address City/[facility]/ZIP Co de Phone Number [facility] [address] [place] [address], [place] [phone] * Magnesium (05/03/2025 3:57 AM EDT) Only the most recent of5 resultswithin the time period is included. Magnesium 2.2 1.7 - 2.8 mg/dL LAB CHEMISTRY METHOD 05/03/2025 4:34 AM EDT [facility] Blood Venous blood specimen / Unknown Venipuncture / Unknown 05/03/2025 3:57 AM EDT 05/03/2025 4:01 AM EDT us Kalyan GALLO LAB BLOOD ORDERABLES Final Resul t [facility] [address] [place] [address], [place] [phone] * (ABNORMAL) Basic metabolic panel (05/03/2025 3:57 AM EDT) Only the most recent of7 resultswithin the time period is included. Sodium 136 135 - 145 mmol/L LAB CHEMISTRY METHOD 05/03/2025 4:34 AM T [facility] Potassium 3.6 3.5 - 5.1 mmol/L LAB CHEMISTRY METHOD 05/03/2025 4:34 AM EDT [facility] Chloride 102 98 - 107 mmol/L LAB CHEMISTRY METHOD 05/03/2025 4:34 AM EDT [facility] CO2 23(L) 24 - 32 mmol/L LAB CHEMISTRY METHOD 05/03/2025 4:34 AM EDT [facility] Anion Gap 11 5 - 14 LAB CHEMISTRY METHOD 05/03/2025 4:34 AM [facility] Glucose 145 70 - 199 mg/dL LAB CHEMISTRY METHOD 05/03/2025 4:34 AM [facility] BUN 13 9 - 20 mg/dL LAB CHEMISTRY METHOD 05/03/2025 4:34 AM [facility] Creatinine 0.80 0.70 - 1.30 mg/dL LAB CHEMISTRY METHOD 05/03/2025 4:34 AM [facility] eGFR 98 >=60 mL/min/1. 73m2 LAB CHEMISTRY METHOD 05/03/2025 4:34 AM T [facility] Comment:Calculation based on the Chronic Kidney Disease Epidemiology Collaboration (CKD-EPI) equation refit without adjustment for race. BUN/Creatinine Ratio 16.3 12.0 - 20.0 LAB CHEMISTRY METHOD 05/03/2025 4:34 AM [facility] Calcium 8.3(L) 8.4 - 10.2 mg/dL LAB CHEMISTRY METHOD 05/03/2025 4:34 AM [facility] Blood Venous blood specimen / Unknown Venipuncture / Unknown 05/03/2025 3:57 AM EDT 05/03/2025 4:01 AM EDT us Kalyan GALLO LAB BLOOD ORDERABLES Final Resul t Performing Organization Address City/[facility]/ZIP Co de Phone Number [facility] [address] [place] [address], [place] [phone] * Activated Partial Thromboplastin Time - STAT (05/02/2025 6:44 AM EDT) Only the most recent of7 resultswithin the time period is included. aPTT 28.3 25.0 - 37.0 sec LAB COAGULATION METHOD 05/02/2025 7:17 AM EDT [facility] Blood Blood sample taken from central line / Unknown 05/02/2025 6:44 AM EDT 05/02/2025 7:00 AM EDT Kalyan GALLO LAB BLOOD ORDERABLES Final Resul t Performing Organization Address [facility] Co de Phone Number [facility] [address] [place] [address], [place] [phone] * XR Chest 1 View (05/02/2025 5:24 AM EDT) Only the most recent of6 resultswithin the time period is included. Anatomical Region Laterality Modality Body Radiographic Ade ging 05/02/2025 10:0 2 AM EDT Impressions 05/02/2025 10:06 AM EDT FINDINGS/IMPRESSION: Postoperative appearance from mitral valve repair. Right IJ accessed introducer sheath terminates in the mid SVC. Slightly improve aeration of the lower lobes with mild residual bibasilar atelectasis. No consolidation. Small bilateral pleural effusions. No pneumothorax. The cardiomediastinal silhouette is unchanged. Report reviewed and signed by : Dr. Jose Martin Gore on 05/02/2025 10:06 AM. Workstation Name - [id number] -------- FINAL REPORT -------- Dictated By: Jose Martin Gore Dictated Date: 05/02/2025 10:02 ET Assigned Physician: Jose Martin Gore Reviewed and Electronically Signed By: Jose Martin Gore Signed Date: 05/02/2025 10:06 ET Workstation ID: [id number] Transcribed By: Self Edit Transcribed Date: 05/02/2025 10:02 ET Narrative 05/02/2025 10:06 AM EDT CHEST RADIOGRAPH: Single AP portable view of the chest. INDICATION: hypoxia COMPARISON: Multiple recent priors Procedure Note Jose Martin Gore MD - 05/02/2025 CHEST RADIOGRAPH: Single AP portable view of the chest. INDICATION: hypoxia COMPARISON: Multiple recent priors IMPRESSION: FINDINGS/IMPRESSION: Postoperative appearance from mitral valve repair. Right IJ accessedintroducer sheath terminates in the mid SVC. Slightly improve aeration of the lower lobes with mild residual bibasilaratelectasis. No consolidation. Small bilateral pleural effusions. Nopneumothorax. The cardiomediastinal silhouette is unchanged. Report reviewed and signed by : Dr. Jose Mratin Gore on 05/02/2025 10:06 AM.Workstation Name - [id number] -------- FINAL REPORT -------- Dictated By: Jose Martin Gore Dictated Date: 05/02/2025 10:02 ET Assigned Physician: Jose Martin Gore Reviewed and Electronically Signed By: Jose Martin Gore Signed Date: 05/02/2025 10:06 ET Workstation ID: [id number] Transcribed By: Self Edit Transcribed Date: 05/02/2025 10:02 ET Ike GALLO IMG XR PROCEDURES Final Resu lt * Anti-Xa - Every 6 Hours (05/02/2025 3:34 AM EDT) Only the most recent of4 resultswithin the time period is included. Heparin Anti-Xa 0.53 I Unit/mL LAB COAGULATION METHOD 05/02/2025 4:17 AM EDT [facility] Blood Blood sample taken from central line / Unknown 05/02/2025 3:34 AM EDT 05/02/2025 3:59 AM EDT Narrative [facility] - 05/02/2025 4:17 AM EDT Therapeutic Ranges Heparin Thromboembolic/Standard/Full Dose Protocol: Age 18+ Years 0.30-0.70 IU/mL Age 0-17 Years 0.35-0.70 IU/mL Heparin Cardiac/Low Dose Protocol: 0.30-0.5 IU/mL Low Molecular Weight Heparin: Age 18+ Years 0.50-1.50 IU/mL Age 0-17 Years 0.50-1.00 IU/mL Kalyan GALLO LAB BLOOD ORDERABLES Final Resul t Performing Organization Address [facility]/ZIP Co de Phone Number [facility] [address] [place] [address], [place] [phone] * (ABNORMAL) Calcium, ionized (05/02/2025 3:34 AM EDT) Only the most recent of4 resultswithin the time period is included. Calcium Ionized 1.16(L) 1.19 - 1.35 mg/dL LAB BLOOD GAS METHOD 05/02/2025 4:12 AM EDT [facility] Blood Blood sample taken from central line / Unknown 05/02/2025 3:34 AM EDT 05/02/2025 3:59 AM EDT Ike GALLO LAB BLOOD ORDERABLES Final R esult Performing Organization Address City/[facility]/ZIP Co de Phone Number [facility] [address] [place] [address], [place] [phone] * (ABNORMAL) Hemoglobin and hematocrit (04/30/2025 9:17 PM EDT) Only the most recent of5 resultswithin the time period is included. Hemoglobin 8.3(L) 13.5 - 18.0 g/dL LAB HEMETOLOGY METHOD 04/30/2025 9:[address] [facility] Hematocrit 25.2(L) 40.0 - 54.0 % LAB HEMETOLOGY METHOD 04/30/2025 9:38 PM EDT [facility] Comment:Verified by repeat a nalysis Blood Venous blood specimen / Unknown Venipuncture / Unknown 04/30/2025 9:17 PM EDT 04/30/2025 9:22 PM EDT Ike GALLO LAB BLOOD ORDERABLES Final R esult Performing Organization Address City/[facility]/ZIP Co de Phone Number [facility] [address] [place] [address], [place] [phone] * ECG 12 lead (04/30/2025 5:03 AM EDT) Only the most recent of5 resultswithin the time period is included. Ventricular Rate ECG 64 BPM GEMUSE Atrial Rate 64 BPM GEMUSE P-R Interval 150 ms GEMUSE QRS Duration 96 ms GEMUSE Q-T Interval 420 ms GEMUSE QTc 433 ms GEMUSE P Wave [place] 56 degrees GEMUSE R [place] -3 degrees GEMUSE T [place] 28 degrees GEMUSE ECG Interpretation Normal sinus rhythm Early repolarization chamges Borderline ECG When compared with ECG of 29-APR-2025 13:33, (Unconfirmed) Vent. rate has decreased BY 48 BPM Early repolarization chamges Confirmed by Natalia Bain ([id number]) on 05/01/2025 10:05:29 AM GEMUSE 04/30/2025 5:03 AM EDT 05/01/2025 10:05 AM EDT Kalyan GALLO ECG ORDERABLES Final Result Performing Organization Address City/[facility] Co de Phone Number GEMUSE * Mixed venous blood gas (04/30/2025 3:52 AM EDT) Only the most recent of2 resultswithin the time period is included. pH, Mixed Venous Blood 7.40 7.35 - 7.45 pH LAB BLOOD GAS METHOD 04/30/2025 3:58 AM EDT [facility] Carbon Dioxide Mixed Venous 46 mmHg LAB BLOOD GAS METHOD 04/30/2025 3:58 AM EDT [facility] Comment:No established refer ence range. PO2 Mixed Venous 33 mmHg LAB BLOOD GAS METHOD 04/30/2025 3:58 AM EDT [facility] Comment:No established refer ence range. Bicarbonate Mixed Venous 26.3 mmol/L LAB BLOOD GAS METHOD 04/30/2025 3:58 AM EDT [facility] Comment:No established refer ence range. Oxygen Saturation Mixed Venous 61.1 % LAB BLOOD GAS METHOD 04/30/2025 3:58 AM EDT [facility] Comment:No established refer ence range. Base Excess Mixed Venous 3.0 mmol/L LAB BLOOD GAS METHOD 04/30/2025 3:58 AM EDT [facility] Comment:No established refer ence range. Blood Mixed venous blood specimen / Unknown Arterial Line / Unknown 04/30/2025 3:52 AM EDT 04/30/2025 3:56 AM EDT us Kalyan GALLO LAB BLOOD ORDERABLES Final Resul t [facility] [address] [place] [address], * (ABNORMAL) Acute kidney injury score (04/30/2025 3:47 AM EDT) JOCELYN Risk Score 1.68(H) <=0.31 LAB MICROBIOLOGY METHOD 04/30/2025 9:28 AM EDT [facility] Urine Urine specimen obtained by clean catch procedure / Unknown Non-blood Collection / Unknown 04/30/2025 3:47 AM EDT 04/30/2025 3:50 AM EDT Narrative [facility] - 04/30/2025 9:28 AM EDT Intended use patients 21 years of age or older with Nephrocheck JOCELYN Risk Scores of less than or equal to 0.30 are at a lower risk of developing moderate to severe JOCELYN within 12 hours of assessment than those with JOCELYN Risk Scores of > 0.30. us Kalyan GALLO LAB URINE ORDERABLES Final Resul t Performing Organization Address City/[facility]/ZIP Co de Phone Number [facility] [address] [place] [address], [place] [phone] * (ABNORMAL) Arterial blood gas (04/30/2025 3:45 AM EDT) Only the most recent of2 resultswithin the time period is included. pH, Arterial 7.46(H) 7.35 - 7.45 pH LAB BLOOD GAS METHOD 04/30/2025 3:56 AM EDT [facility] pCO2, Arterial 36 35 - 45 mmHg LAB BLOOD GAS METHOD 04/30/2025 3:56 AM EDT [facility] pO2, Arterial 116(H) 80 - 105 mmHg LAB BLOOD GAS METHOD 04/30/2025 3:56 AM EDT [facility] HCO3, Arterial 26.5(H) 22.0 - 26.0 mmol/L LAB BLOOD GAS METHOD 04/30/2025 3:56 AM EDT [facility] O2 Sat, Arterial 99.9(H) 95.0 - 98.0 % LAB BLOOD GAS METHOD 04/30/2025 3:56 AM EDT [facility] Base Excess, Arterial 2.0 0.0 - 2.0 mmol/L LAB BLOOD GAS METHOD 04/30/2025 3:56 AM EDT [facility] Blood Arterial blood specimen / Unknown Arterial Puncture / Unknown 04/30/2025 3:45 AM EDT 04/30/2025 3:50 AM EDT Kalyan GALLO LAB BLOOD ORDERABLES Final Resul t [facility] [address] [place] [address], [place] [phone] * (ABNORMAL) Prothrombin time with INR (04/29/2025 8:30 PM EDT) Only the most recent of7 resultswithin the time period is included. Protime 13.4(H) 10.5 - 13.3 sec LAB COAGULATION METHOD 04/29/2025 9:00 PM EDT [facility] INR 1.2(H) 0.8 - 1.1 LAB COAGULATION METHOD 04/29/2025 9:00 PM EDT [facility] Blood Venous blood specimen / Unknown Venipuncture / Unknown 04/29/2025 8:30 PM EDT 04/29/2025 8:35 PM EDT Narrative [facility] - 04/29/2025 9:00 PM EDT Std. Therapy 2.0-3.0 INR High Dose Therapy 3.0-4.5 INR Ranges may vary depending on clinical indications and protocol. us Kalyan GALLO LAB BLOOD ORDERABLES Final Resul t Performing Organization Address City/[facility]/ZIP Co de Phone Number [facility] [address] [place] [address], [place] [phone] * Potassium (04/29/2025 8:30 PM EDT) Only the most recent of3 resultswithin the time period is included. Potassium 4.0 3.5 - 5.1 mmol/L LAB CHEMISTRY METHOD 04/29/2025 9:11 PM EDT [facility] Blood Venous blood specimen / Unknown Venipuncture / Unknown 04/29/2025 8:30 PM EDT 04/29/2025 8:35 PM EDT us Kalyan GALLO LAB BLOOD ORDERABLES Final Resul t [facility] [address] [place] [address], [place] [phone] * (ABNORMAL) POCT Arterial blood gas (04/29/2025 5:03 PM EDT) Only the most recent of5 resultswithin the time period is included. Sample Site POCT ART 04/30/2025 9:23 PM EDT [facility] pH Arterial POCT 7.40 7.35 - 7.45 04/30/2025 9:23 PM EDT [facility] pCO2 Arterial POCT 44.7 35 - 45 mmHg 04/30/2025 9:23 PM EDT [facility] pO2 Arterial POCT 94 80 - 105 mmHg 04/30/2025 9:23 PM EDT [facility] pH Temp Corrected Arterial, POCT 7.40 7.35 - 7.45 04/30/2025 9:23 PM EDT [facility] pCO2 Temp Control Arterial, POCT 45.0 35 - 45 mmHg 04/30/2025 9:23 PM EDT [facility] pO2 Temp Corrected Arterial, POCT 95(HH) 35 - 45 mmHg 04/30/2025 9:23 PM EDT [facility] HCO3 Arterial POCT 27.7(H) 22.0 - 26.0 mmol/L 04/30/2025 9:23 PM EDT [facility] Base Excess Arterial POCT 3(H) 0 - 2 mmol/L 04/30/2025 9:23 PM EDT [facility] SO2 Arterial POCT 97 95 - 98 % 04/30/2025 9:23 PM EDT [facility] FIO2 POCT 35.0 No Established Reference Range % 04/30/2025 9:23 PM EDT [facility] Patient Temperature POCT 98.9 C 04/30/2025 9:23 PM EDT [facility] Blood Arterial blood specimen / Unknown 04/29/2025 5:03 PM EDT 04/30/2025 9:24 PM EDT Jam Montez MD LAB POINT OF CARE TE ST DOCKED DEVICE UNSOLICITED RESULTS Final Result Performing Organization Address [facility]/ZIP Co de Phone Number [facility] [address] [place] [address], * Triglyceride Monitoring (04/29/2025 2:12 PM EDT) Triglycerides 120 <150 mg/dL LAB CHEMISTRY METHOD 04/29/2025 2:50 PM EDT [facility] Blood Arterial blood specimen / Unknown Venipuncture / Unknown 04/29/2025 2:12 PM EDT 04/29/2025 2:20 PM EDT Kalyan GALLO LAB BLOOD ORDERABLES Final Resul t Performing Organization Address [facility]/ZIP Co de Phone Number [facility] [address] [place] [address], * XR Abdomen 1 View (04/29/2025 1:30 PM EDT) Anatomical Region Laterality Modality Body Radiographic Ade ging 04/29/2025 1:42 PM EDT Impressions 04/29/2025 1:46 PM EDT FINDINGS/IMPRESSION: AP portable view of the chest and AP portable view of the abdomen were obtained. Postoperative appearance from mitral annular repair. Endotracheal tube terminates 7 cm above the brittany. Right IJ accessed [place]-Patricia catheter terminates in the region of the pulmonary outflow tract. Orogastric tube courses below the diaphragm with side port at the GE junction and distal tip in the stomach, consider advancing 2-3 cm. Mediastinal chest tubes noted. Mild pulmonary vascular congestion without focal airspace disease, pneumothorax, or sizable pleural effusion. Cardiac silhouette within normal limits for size. Obstructive bowel gas pattern. No evidence of pneumoperitoneum. Degenerative changes of the shoulders and spine. Report reviewed and signed by : Dr. Jose Martin Gore on 04/29/2025 1:46 PM. Workstation Name - [id number] -------- FINAL REPORT -------- Dictated By: Jose Martin Gore Dictated Date: 04/29/2025 13:42 ET Assigned Physician: Jose Martin Gore Reviewed and Electronically Signed By: Jose Martin Gore Signed Date: 04/29/2025 13:46 ET Workstation ID: [id number] Transcribed By: Self Edit Transcribed Date: 04/29/2025 13:42 ET Narrative 04/29/2025 1:46 PM EDT EXAM: XR CHEST 1 VIEW, XR ABDOMEN 1 VIEW CLINICAL INFORMATION: hypoxia COMPARISON: None Procedure Note Jose Martin Gore MD - 04/29/2025 EXAM: XR CHEST 1 VIEW, XR ABDOMEN 1 VIEW CLINICAL INFORMATION: hypoxia COMPARISON: None IMPRESSION: FINDINGS/IMPRESSION: AP portable view of the chest and AP portable view ofthe abdomen were obtained. Postoperative appearance from mitral annular repair. Endotracheal tubeterminates 7 cm above the brittany. Right IJ accessed [place]-Patricia catheterterminates in the region of the pulmonary outflow tract. Orogastric tubecourses below the diaphragm with side port at the GE junction and distaltip in the stomach, consider advancing 2-3 cm. Mediastinal chest tubesnoted. Mild pulmonary vascular congestion without focal airspace disease,pneumothorax, or sizable pleural effusion. Cardiac silhouette within normal limits for size. Obstructive bowel gas pattern. No evidence of pneumoperitoneum. Degenerative changes of the shoulders and spine. Report reviewed and signed by : Dr. Jose Martin Gore on 04/29/2025 1:46 PM.Workstation Name - [id number] -------- FINAL REPORT -------- Dictated By: Jose Martin Gore Dictated Date: 04/29/2025 13:42 ET Assigned Physician: Jose Martin Gore Reviewed and Electronically Signed By: Jose Martin Gore Signed Date: 04/29/2025 13:46 ET Workstation ID: [id number] Transcribed By: Self Edit Transcribed Date: 04/29/2025 13:42 ET us Kalyan GALLO IMG XR PROCEDURES Final Result * (ABNORMAL) POCT Arterial blood gas, NA, K, ICAL, GLU, HH (04/29/2025 11:58 AM EDT) Only the most recent of8 resultswithin the time period is included. pH Arterial POCT 7.34(L) 7.35 - 7.45 04/29/2025 12:00 PM EDT [facility] pH Temp Corrected Arterial, POCT 7.34(L) 7.35 - 7.45 04/29/2025 12:00 PM EDT [facility] pCO2 Arterial POCT 48.7(H) 35 - 45 mmHg 04/29/2025 12:00 PM EDT [facility] pCO2 Temp Control Arterial, POCT 48.7(H) 35 - 45 mmHg 04/29/2025 12:00 PM EDT [facility] pO2 Arterial POCT 163(H) 80 - 105 mmHg 04/29/2025 12:00 PM EDT [facility] pO2 Temp Corrected Arterial, POCT 163(HH) 35 - 45 mmHg 04/29/2025 12:00 PM EDT [facility] HCO3 Arterial POCT 26.5(H) 22.0 - 26.0 mmol/L 04/29/2025 12:00 PM EDT [facility] Base Excess Arterial POCT 1 0 - 2 mmol/L 04/29/2025 12:00 PM EDT [facility] SO2 Arterial POCT 99(H) 95 - 98 % 04/29/2025 12:00 PM T [facility] FIO2 POCT 60.0 No Established Reference Range % 04/29/2025 12:00 PM EDT [facility] Sodium Arterial POCT 140 135 - 145 mmol/L 04/29/2025 12:00 PM EDT [facility] Potassium Arterial POCT 3.9 3.5 - 5.1 mmol/L 04/29/2025 12:00 PM EDT [facility] Ionized Calcium, Arterial POCT 1.17(L) 1.19 - 1.35 mmol/L 04/29/2025 12:00 PM EDT [facility] Glucose Arterial POCT 168 70 - 199 mg/dL 04/29/2025 12:00 PM EDT [facility] Comment: Fasting Reference Range: 70-99 mg/dL Non-Fasting Reference Range: 70-199 mg/dL Hemoglobin Arterial POCT 9.5(L) 13.5 - 18.0 g/dL 04/29/2025 12:00 PM EDT [facility] Hematocrit Arterial POCT 28(L) 40 - 54 % 04/29/2025 12:00 PM EDT [facility] Patient Temperature POCT 37.0 C 04/29/2025 12:00 PM EDT [facility] Blood Arterial blood specimen / Unknown 04/29/2025 11:58 AM EDT 04/29/2025 12:02 PM EDT us Jam Montez MD LAB POINT OF CARE TE ST DOCKED DEVICE UNSOLICITED RESULTS Final Result [facility] [address] [place] [address], [place] [phone] * Fibrinogen (04/29/2025 10:54 AM EDT) Fibrinogen 184 145 - 415 mg/dL LAB COAGULATION METHOD 04/29/2025 11:24 AM EDT [facility] Blood Arterial blood specimen / Unknown 04/29/2025 10:54 AM EDT 04/29/2025 11:03 AM EDT us Jam Montez MD LAB BLOOD ORDERABLES Final Res ult Performing Organization Address [facility]/ZIP Co de Phone Number [facility] [address] [place] [address], [place] [phone] * (ABNORMAL) Platelet count (04/29/2025 10:54 AM EDT) Platelets 140(L) 150 - 450 K/mcL LAB HEMETOLOGY METHOD 04/29/2025 11:09 AM EDT [facility] MPV 04/29/2025 11:09 AM EDT [facility] Blood Arterial blood specimen / Unknown 04/29/2025 10:54 AM EDT 04/29/2025 11:03 AM EDT Jam Montez MD LAB BLOOD ORDERABLES Final Res ult Performing Organization Address [facility] Co de Phone Number [facility] [address] [place] [address], [place] [phone] * Intraoperative OLIVER (04/29/2025 8:31 AM EDT) Pathologist [facility] BSA 2.15 m2 CV PACS Anatomical Region Laterality Modality Ultrasound Narrative 04/29/2025 11:25 AM EDT Left ventricle cavity is moderately dilated. Left ventricular systolic function is in the normal range with an ejection fraction in the 55-70% range. No regional LV wall motion abnormalities noted. Left ventricle moderate eccentric hypertrophy. Right ventricle cavity is normal. Right ventricular systolic function is normal. Mitral valve demonstrates moderate to severe regurgitation with an eccentrically directed jet. Pt came off CPB following MV annuloplasty on minimal support that was quickly weaned off. MV ring placed, 33mm, and was well seated. Minimal trace early systolic MR that disappeared quickly. No other valve issues. EF normal. Left Ventricle Left ventricle cavity is moderately dilated. There is moderate eccentric hypertrophy. Systolic function is normal with an ejection fraction in the 55-70% range. There are no regional LV wall motion abnormalities. Unable to assess diastolic function. Right Ventricle Right ventricle cavity appears normal. Systolic function is normal. Left Atrium Left atrium cavity is moderately dilated. There is no thrombus in the left atrial appendage. There is no mass in the left atrial appendage. No presence of lipomatous hypertrophy of the interatrial septum. There is no atrial septal defect present. No patent foramen ovale visualized. Right Atrium Right atrium cavity is normal. IVC/SVC Inferior vena cava structure is normal. Mitral Valve The leaflets are mildly thickened. The posterior leaflet has a medium sized flail involving the middle (P2) scallop. There is moderate to severe regurgitation with an eccentrically directed jet. Systolic flow reversal is absent. There is no evidence of mitral valve stenosis. Tricuspid Valve Tricuspid valve structure is normal. There is no significant regurgitation. There is no significant tricuspid valve stenosis. Aortic Valve The aortic valve is trileaflet. The leaflets are not thickened and exhibit normal excursion. There is no regurgitation or stenosis. Pulmonic Valve The pulmonic valve was not well visualized. No significant pulmonic valve regurgitation. No significant pulmonary valve stenosis noted. Ascending Aorta The aorta appears normal in size. Pericardium Pericardium appears normal. There is no pericardial effusion. Study Details Overall the study quality was excellent. The underlying ECG rhythm was sinus rhythm. The probe was inserted by the anesthesiologist. There was no probe insertion difficulty. General anesthesia was administered. The patient had no complications. Estimated blood loss: no blood loss. No specimens were collected. us Hernan Pedraza MD CV ECHO PROCEDURES Audrey l Result * ANESTHESIA PAC LINE PLACEMENT (04/29/2025 8:30 AM EDT) Hernan Chavria MD - 04/29/2025 8:30 AM EDT Hernan Pedraza MD 04/29/2025 8:30 AM PA Catheter Placement: A PA catheter was placed in the OR for the following indication(s): CVP monitoring. Staffing Performed: Anesthesiologist Anesthesiologist: Hernan Pedraza MD Performed by: Hernan Pedraza MD Authorized by: Hernan Pedraza MD Completed: patient identified, IV checked, site marked, risks and benefits discussed, surgical consent, monitors and equipment checked, pre-op evaluation and timeout performed Procedure Information Sterility preparation included the following: provider hand hygiene performed prior to central venous catheter insertion, all 5 sterile barriers used (gloves, gown, cap, mask, large sterile drape) during central venous catheter insertion and skin prep agent completely dried prior to procedure. The site was prepped with ChloraPrep. Skin prep agent completely dried prior to procedure. The patient was placed in Trendelenburg position. Site: internal jugular vein PA catheter placement: distal introducer port Introducer size: 9 Fr Catheter type: oximetric Successful placement with 1 attempt(s) The PAC placement was confirmed by pressure tracing changes, OLIVER and transduced waveform. Post insertion care included: dressing applied and line secured. Procedure was uneventful. Hernan Pedraza MD ANESTHESIA ORDERABLES F inal Result * Peripheral Block (04/29/2025 7:25 AM EDT) Hernan Chavira MD - 04/29/2025 7:25 AM EDT Hernan Pedraza MD 04/29/2025 8:30 AM Peripheral Block Patient location during procedure: OR Start time: 04/29/2025 7:20 AM End time: 04/29/2025 7:25 AM Reason for block: at surgeon's request Staffing Performed: anesthesiologist Anesthesiologist: Hernan Pedraza MD Preanesthetic Checklist Completed: patient identified, IV checked, site marked, risks and benefits discussed, surgical consent, monitors and equipment checked, pre-op evaluation and timeout performed Peripheral Block Patient position: supine Prep: ChloraPrep Patient monitoring: heart rate, color television console monitor and continuous pulse ox Block type: Other (See Notes) Laterality: bilateral Injection technique: single-shot Guidance: ultrasound guided Local infiltration: lidocaine Infiltration strength: 2 % Dose: 2 mL Needle Needle type: short-bevel Needle gauge: 22 G Needle length: 5 cm Needle localization: ultrasound guidance Medications Administered ropivacaine (NAROPIN) injection 0.5 % - infiltration 10 mL - 04/29/2025 7:25:00 AM Assessment Injection assessment: negative aspiration for heme, no paresthesia on injection and incremental injection with negative aspiration q 5ml Additional Notes Bilateral rectus sheath block performed and surgeon's request and for post operative analgesia Ultrasound image of block recorded and placed in OLIVER report located on synapse Hernan Pedraza MD ANESTHESIA ORDERABLES F inal Result * TH AN NERVE BLOCK SAVANNAH (NO CHARGE) (04/29/2025 7:20 AM EDT) Hernan Chavira MD - 04/29/2025 7:20 AM EDT Hernan Pedraza MD 04/29/2025 8:29 AM Peripheral Block Patient location during procedure: OR Start time: 04/29/2025 7:15 AM End time: 04/29/2025 7:20 AM Reason for block: at surgeon's request Staffing Performed: anesthesiologist Anesthesiologist: Hernan Pedraza MD Preanesthetic Checklist Completed: patient identified, IV checked, site marked, risks and benefits discussed, surgical consent, monitors and equipment checked, pre-op evaluation and timeout performed Peripheral Block Patient position: right lateral decubitus Prep: ChloraPrep Patient monitoring: continuous pulse ox Block type: erector spinae plane Laterality: bilateral Injection technique: single-shot Guidance: ultrasound guided Local infiltration: lidocaine Infiltration strength: 2 % Dose: 3 mL Needle Needle type: short-bevel Needle gauge: 22 G Needle length: 5 cm Needle localization: ultrasound guidance Medications Administered dexamethasone (PF) (DECADRON) injection 10 mg/mL - intravenous 10 mg - 04/29/2025 7:20:00 AM ropivacaine (NAROPIN) injection 0.5 % - infiltration 30 mL - 04/29/2025 7:20:00 AM Assessment Injection assessment: negative aspiration for heme and incremental injection with negative aspiration q 5ml Heart rate change: no Slow fractionated injection: no Additional Notes For post operative analgesia Ultrasound image of block located on OLIVER imaging on Synapse us Hernan Pedraza MD ANESTHESIA ORDERABLES F inal Result * Type and screen (04/29/2025 6:14 AM EDT) Only the most recent of2 resultswithin the time period is included. ABO Group A 04/29/2025 7:08 AM EDT [facility] Rh Type Positive 04/29/2025 7:08 AM EDT [facility] Antibody Screen Negative 04/29/2025 7:08 AM EDT [facility] Blood Venous blood specimen / Unknown Venipuncture / Unknown 04/29/2025 6:14 AM EDT 04/29/2025 6:23 AM EDT Ira GALLO LAB BLOOD BANK TEST ORDERA BLES Final Result [facility] [address] [place] [address], [place] [phone] * Drug abuse screen 9a panel, urine (04/29/2025 6:09 AM EDT) Only the most recent of2 resultswithin the time period is included. Amphetamine Screen, Ur Negative Negative LAB CHEMISTRY METHOD 04/29/2025 6:57 AM EDT [facility] Barbiturate Screen, Ur Negative Negative LAB CHEMISTRY METHOD 04/29/2025 6:57 AM EDT [facility] Benzodiazepine Screen, Ur Negative Negative LAB CHEMISTRY METHOD 04/29/2025 6:57 AM EDT [facility] Comment:Method not sensitive to Lorazepam and derivatives. Include clinical correlation in test interpretation. Opiate Screen, Ur Negative Negative LAB CHEMISTRY METHOD 04/29/2025 6:57 AM EDT [facility] Cannabinoid (THC) Screen, Ur Negative Negative LAB CHEMISTRY METHOD 04/29/2025 6:57 AM EDT [facility] Benzoylecgonine, Ur Negative Negative LAB CHEMISTRY METHOD 04/29/2025 6:57 AM EDT [facility] Fentanyl, Ur Negative Negative LAB CHEMISTRY METHOD 04/29/2025 6:57 AM EDT [facility] Oxycodone Screen, Ur Negative Negative LAB CHEMISTRY METHOD 04/29/2025 6:57 AM EDT [facility] PCP Scrn, Ur Negative Negative LAB CHEMISTRY METHOD 04/29/2025 6:57 AM EDT [facility] Urine Urine specimen obtained by clean catch procedure / Unknown Non-blood Collection / Unknown 04/29/2025 6:09 AM EDT 04/29/2025 6:12 AM EDT Narrative [facility] - 04/29/2025 6:57 AM EDT URINE DRUGS OF ABUSE CUTOFF CONCENTRATIONS: Amphetamines 1000 ng/mL Barbituates 200 ng/mL Benzodiazepine 200 ng/mL Cannabinoids 50 ng/mL Benzoylecgonine 300 ng/mL Opiates 300 ng/mL PCP 25 ng/mL Ira GALLO LAB URINE ORDERABLES Final Result [facility] [address] [place] [address], [place] [phone] * Prepare platelets: 2 Product (04/29/2025 6:04 AM EDT) Product Code Y1647I92 05/01/2025 4:24 AM EDT [facility] Unit Number [id number] 05/01/20 4:24 AM EDT [facility] Dispense Status Presumed Transfused 05/01/2025 4:24 AM EDT [facility] Unit ABO Rh APOS 05/01/2025 4:24 AM EDT [facility] Unit Expiration Date Time 05/01/2025 4:24 AM EDT [facility] Unit Blood Type 6200 05/01/2025 4:24 AM EDT [facility] Product Code [id number] 05/01/2025 4:24 AM EDT [facility] Unit Number [id number] 05/01/20 4:24 AM EDT [facility] Dispense Status Presumed Transfused 05/01/2025 4:24 AM EDT [facility] Unit ABO Rh APOS 05/01/2025 4:24 AM EDT [facility] Unit Expiration Date Time [id number] 05/01/2025 4:24 AM EDT [facility] Unit Blood Type 6200 05/01/2025 4:24 AM EDT [facility] Blood Venous blood specimen / Unknown 04/29/2025 6:04 AM EDT Ira GALLO BLOOD BANK PRODUCT ORDERAB LES Final Result [facility] [address] [place] [address], [place] [phone] * Prepare RBC: 4 Units (04/29/2025 6:04 AM EDT) Product Code [id number] 04/29/2025 10:20 PM EDT [facility] Unit Number [id number] 04/29/20 10:20 PM EDT [facility] Crossmatch Compatible 04/29/2025 7:13 AM EDT [facility] Dispense Status Released From Crossmatch 04/29/2025 10:20 PM EDT [facility] Unit ABO Rh APOS 04/29/2025 10:20 PM EDT [facility] Unit Expiration Date Time [id number] 04/29/2025 10:20 PM EDT [facility] Unit Blood Type 6200 04/29/2025 10:20 PM EDT [facility] Product Code [id number] 04/29/2025 10:20 PM EDT [facility] Unit Number [id number] 04/29/20 10:20 PM EDT [facility] Crossmatch Compatible 04/29/2025 7:13 AM EDT [facility] Dispense Status Released From Crossmatch 04/29/2025 10:20 PM EDT [facility] Unit ABO Rh APOS 04/29/2025 10:20 PM EDT [facility] Unit Expiration Date Time 04/29/2025 10:20 PM EDT [facility] Unit Blood Type 6200 04/29/2025 10:20 PM EDT [facility] Product Code [id number] 04/29/2025 10:20 PM EDT [facility] Unit Number [id number] 04/29/20 10:20 PM EDT [facility] Crossmatch Compatible 04/29/2025 7:13 AM EDT [facility] Dispense Status Released From Crossmatch 04/29/2025 10:20 PM EDT [facility] Unit ABO Rh APOS 04/29/2025 10:20 PM EDT [facility] Unit Expiration Date Time [id number] 04/29/2025 10:20 PM EDT [facility] Unit Blood Type 6200 04/29/2025 10:20 PM EDT [facility] Product Code [id number] 04/29/2025 10:20 PM EDT [facility] Unit Number [id number] 04/29/20 10:20 PM EDT [facility] Crossmatch Compatible 04/29/2025 7:14 AM EDT [facility] Dispense Status Released From Crossmatch 04/29/2025 10:20 PM EDT [facility] Unit ABO Rh APOS 04/29/2025 10:20 PM EDT [facility] Unit Expiration Date Time [id number] 04/29/2025 10:20 PM EDT [facility] Unit Blood Type 6200 04/29/2025 10:20 PM EDT [facility] Blood Venous blood specimen / Unknown 04/29/2025 6:04 AM EDT 04/29/2025 6:23 AM EDT us Ira GALLO BLOOD BANK PRODUCT ORDERAB LES Final Result [facility] [address] [place] [address], [place] [phone] * US outside images (with interpretation) (04/28/2025 10:51 AM EDT) Anatomical Region Laterality Modality Ultrasound us Historical Provider MD MORGAN US PROCEDURES Final R esult * (ABNORMAL) Urinalysis with reflex microscopic and culture (04/21/2025 8:38 AM EDT) Color, Urine Yellow Yellow, Colorless LAB URINALYSIS - AUTOMATED METHOD 04/21/2025 12:58 PM EDT [facility] Clarity, Urine Clear Clear LAB URINALYSIS - AUTOMATED METHOD 04/21/2025 12:58 PM EDT [facility] Specific [place] Urine 1.008 1.005 - 1.030 LAB URINALYSIS - AUTOMATED METHOD 04/21/2025 12:58 PM EDT [facility] pH, Urine 7.0 5.0 - 8.0 pH LAB URINALYSIS - AUTOMATED METHOD 04/21/2025 12:58 PM EDT [facility] Leukocytes, Urine Negative Negative WBCs/mcL LAB URINALYSIS - AUTOMATED METHOD 04/21/2025 12:58 PM EDT [facility] Nitrite, Urine Negative Negative LAB URINALYSIS - AUTOMATED METHOD 04/21/2025 12:58 PM EDT [facility] Protein, Urine Negative Negative mg/dL LAB URINALYSIS - AUTOMATED METHOD 04/21/2025 12:58 PM EDT [facility] Glucose, Urine Negative Negative mg/dL LAB URINALYSIS - AUTOMATED METHOD 04/21/2025 12:58 PM EDT [facility] Ketones, Urine Negative Negative mg/dL LAB URINALYSIS - AUTOMATED METHOD 04/21/2025 12:58 PM EDT [facility] Blood, Urine Small(A) Negative mg/dL LAB URINALYSIS - AUTOMATED METHOD 04/21/2025 12:58 PM EDT [facility] RBC, Urine 2 0 - 3 /HPF LAB URINALYSIS - AUTOMATED METHOD 04/21/2025 12:58 PM EDT [facility] WBC, Urine <1 0 - 5 /HPF LAB URINALYSIS - AUTOMATED METHOD 04/21/2025 12:58 PM EDT [facility] Squamous Epithelial, Urine 0 0 - 5 /HPF LAB URINALYSIS - AUTOMATED METHOD 04/21/2025 12:58 PM EDT [facility] Hyaline Casts, Urine 1(H) <=0 /LPF LAB URINALYSIS - AUTOMATED METHOD 04/21/2025 12:58 PM EDT [facility] Urine Urine specimen obtained by clean catch procedure / Unknown Non-blood Collection / Unknown 04/21/2025 8:38 AM EDT 04/21/2025 12:49 PM EDT us Jam Montez MD LAB URINE ORDERABLES Final Res ult [facility] [address] [place] [address], [place] [phone] * (ABNORMAL) Lipid panel with reflex to direct LDL (04/21/2025 8:38 AM EDT) Only the most recent of2 resultswithin the time period is included. Cholesterol 118 0 - 200 mg/dL LAB CHEMISTRY METHOD 04/21/2025 10:06 AM EDT [facility] Triglycerides 67 <150 mg/dL LAB CHEMISTRY METHOD 04/21/2025 10:06 AM EDT [facility] HDL 64 32 - 70 mg/dL LAB CHEMISTRY METHOD 04/21/2025 10:06 AM EDT [facility] LDL Calculated 41(L) 50 - 130 mg/dL LAB CHEMISTRY METHOD 04/21/2025 10:06 AM EDT [facility] VLDL Cholesterol Juancarlos 13.4 mg/dL LAB CHEMISTRY METHOD 04/21/2025 10:06 AM EDT [facility] Comment:No established refer ence range. Blood Venous blood specimen / Unknown Venipuncture / Unknown 04/21/2025 8:38 AM EDT 04/21/2025 9:22 AM EDT us Jam Montez MD LAB BLOOD ORDERABLES Final Res ult Performing Organization Address City/[facility]/ZIP Co de Phone Number [facility] [address] [place] [address], [place] [phone] * Thyroid stimulating hormone with reflex free T4 (04/21/2025 8:38 AM EDT) [facility] TSH 0.81 0.45 - 5.33 mcIU/mL LAB CHEMISTRY METHOD 04/21/2025 10:15 AM EDT [facility] Blood Venous blood specimen / Unknown Venipuncture / Unknown 04/21/2025 8:38 AM EDT 04/21/2025 9:22 AM EDT us Jam Montez MD LAB BLOOD ORDERABLES Final Res ult [facility] [address] [place] [address], [place] [phone] * (ABNORMAL) CBC auto differential (04/21/2025 8:38 AM EDT) Only the most recent of4 resultswithin the time period is included. Pathologist [facility] WBC 6.5 4.0 - 10.5 K/mcL LAB HEMETOLOGY METHOD 04/21/2025 9:32 AM EDT [facility] RBC 4.18(L) 4.70 - 6.00 M/mcL LAB HEMETOLOGY METHOD 04/21/2025 9:32 AM EDT [facility] Hemoglobin 12.6(L) 13.5 - 18.0 g/dL LAB HEMETOLOGY METHOD 04/21/2025 9:32 AM EDT [facility] Hematocrit 38.5(L) 40.0 - 54.0 % LAB HEMETOLOGY METHOD 04/21/2025 9:32 AM EDT [facility] MCV 92.1 78.0 - 100.0 FL LAB HEMETOLOGY METHOD 04/21/2025 9:32 AM EDT [facility] MCH 30.1 25.0 - 33.0 pcg LAB HEMETOLOGY METHOD 04/21/2025 9:32 AM EDT [facility] MCHC 32.7 32.0 - 36.0 g/dL LAB HEMETOLOGY METHOD 04/21/2025 9:32 AM EDT [facility] RDW 16.0 12.1 - 17.7 % LAB HEMETOLOGY METHOD 04/21/2025 9:32 AM EDT [facility] Platelets 118(L) 150 - 450 K/mcL LAB HEMETOLOGY METHOD 04/21/2025 9:32 AM EDT [facility] MPV 8.2 7.4 - 11.4 FL LAB HEMETOLOGY METHOD 04/21/2025 9:32 AM EDT [facility] Neutrophils Relative 82.4(H) 44.0 - 74.0 % LAB HEMETOLOGY METHOD 04/21/2025 9:32 AM EDT [facility] Lymphocytes Relative 13.1(L) 20.0 - 48.0 % LAB HEMETOLOGY METHOD 04/21/2025 9:32 AM EDT [facility] Monocytes Relative 3.7 2.0 - 12.0 % LAB HEMETOLOGY METHOD 04/21/2025 9:32 AM EDT [facility] Eosinophils Relative 0.6 0.0 - 6.0 % LAB HEMETOLOGY METHOD 04/21/2025 9:32 AM EDT [facility] Basophils Relative 0.2 0.0 - 2.0 % LAB HEMETOLOGY METHOD 04/21/2025 9:32 AM EDT [facility] Neutrophils Absolute 5.40 1.80 - 7.80 K/mcL LAB HEMETOLOGY METHOD 04/21/2025 9:32 AM EDT [facility] Lymphocytes Absolute 0.80(L) 1.00 - 3.20 K/mcL LAB HEMETOLOGY METHOD 04/21/2025 9:32 AM EDT [facility] Monocytes Absolute 0.20 0.00 - 0.80 K/mcL LAB HEMETOLOGY METHOD 04/21/2025 9:32 AM EDT [facility] Eosinophils Absolute 0.00 0.00 - 0.50 K/mcL LAB HEMETOLOGY METHOD 04/21/2025 9:32 AM EDT [facility] Basophils Absolute 0.00 0.00 - 0.20 K/mcL LAB HEMETOLOGY METHOD 04/21/2025 9:32 AM EDT [facility] Blood Venous blood specimen / Unknown Venipuncture / Unknown 04/21/2025 8:38 AM EDT 04/21/2025 9:22 AM EDT us Jam Montez MD LAB BLOOD ORDERABLES Final Res ult [facility] [address] [place] [address], * Prealbumin (04/21/2025 8:38 AM EDT) Prealbumin 33 17 - 34 mg/dL LAB CHEMISTRY METHOD 04/21/2025 10:05 AM EDT [facility] Blood Venous blood specimen / Unknown Venipuncture / Unknown 04/21/2025 8:38 AM EDT 04/21/2025 9:22 AM EDT us Jam Montez MD LAB BLOOD ORDERABLES Final Res ult [facility] [address] [place] [address], [place] [phone] * Hemoglobin A1c (04/21/2025 8:38 AM EDT) Hemoglobin A1C 5.3 <5.7 % LAB CHEMISTRY METHOD 04/21/2025 10:15 AM EDT [facility] Mean Bld Glu Estim. 105 mg/dL LAB CHEMISTRY METHOD 04/21/2025 10:15 AM EDT [facility] Blood Venous blood specimen / Unknown Venipuncture / Unknown 04/21/2025 8:38 AM EDT 04/21/2025 9:22 AM EDT Narrative [facility] - 04/21/2025 10:15 AM EDT ADA Guidelines: Increased risk Diabetes Mellitus A1C 5.7 - 6.4% and Fasting Blood Glucose 100 - 125 mg/dl Diabetes Mellitus: A1C >6.5% and Fasting Blood Glucose >125 mg/dl us Jam Montez MD LAB BLOOD ORDERABLES Final Res ult [facility] [address] [place] [address], [place] [phone] * Hepatic function panel (04/21/2025 8:38 AM EDT) ALT (SGPT) 21 7 - 52 unit/L LAB CHEMISTRY METHOD 04/21/2025 10:06 AM EDT [facility] AST (SGOT) 21 5 - 40 unit/L LAB CHEMISTRY METHOD 04/21/2025 10:06 AM EDT [facility] Alkaline Phosphatase 41 34 - 104 unit/L LAB CHEMISTRY METHOD 04/21/2025 10:06 AM EDT [facility] Bilirubin, Direct 0.1 0.0 - 0.2 mg/dL LAB CHEMISTRY METHOD 04/21/2025 10:06 AM EDT [facility] Total Bilirubin 0.4 0.3 - 1.0 mg/dL LAB CHEMISTRY METHOD 04/21/2025 10:06 AM EDT [facility] Total Protein 7.5 6.4 - 8.5 g/dL LAB CHEMISTRY METHOD 04/21/2025 10:06 AM EDT [facility] Albumin 4.3 3.5 - 5.0 g/dL LAB CHEMISTRY METHOD 04/21/2025 10:06 AM EDT [facility] Globulin, Total 3.2 2.3 - 3.5 g/dL LAB CHEMISTRY METHOD 04/21/2025 10:06 AM EDT [facility] A/G Ratio 1.3 LAB CHEMISTRY METHOD 04/21/2025 10:06 AM T [facility] Blood Venous blood specimen / Unknown Venipuncture / Unknown 04/21/2025 8:38 AM EDT 04/21/2025 9:22 AM EDT us Jam Montez MD LAB BLOOD ORDERABLES Final Res ult [facility] [address] [place] [address], [place] [phone] * ECG-Annotated (04/21/2025) Only the most recent of2 resultswithin the time period is included. us Provider Onbase ECG ORDERABLES Final Result * CT Angio Chest wo and/or w Contrast (04/19/2025 10:31 PM EDT) Anatomical Region Laterality Modality Body Computed Tomogra phy 04/19/2025 10:5 4 PM EDT Impressions 04/19/2025 10:54 PM EDT 1. No pulmonary emboli. 2. Enlarged pulmonary artery, a finding that can be associated with pulmonary artery hypertension. 3. Aneurysmal ascending aorta measuring up to 4.4 cm in diameter. This document has been electronically signed by: Mateo Modi MD on 04/19/2025 22:54:12 Narrative 04/19/2025 10:54 PM EDT INDICATION: PE suspected, high prob CT angiography chest with contrast. 3D Postprocessing. Comparison: None provided Findings: Appr-gb-kyxqfynr cardiomegaly. Coronary artery calcifications are present. The ascending aorta measures up to 4.4 cm in diameter, dilated. Enlarged pulmonary artery, a finding that can be associated with pulmonary artery hypertension. No pulmonary artery embolus. The visualized thyroid and mediastinum are unremarkable. Mild bibasilar atelectasis. The upper abdomen is unremarkable. The bones are intact. Diffuse idiopathic skeletal hyperostosis of the thoracic spine. Procedure Note Mateo Modi MD - 04/19/2025 INDICATION: PE suspected, high prob CT angiography chest with contrast. 3D Postprocessing. Comparison: None provided Findings: Ugvm-rt-qbykhxgd cardiomegaly. Coronary artery calcifications arepresent. The ascending aorta measures up to 4.4 cm in diameter, dilated. Enlarged pulmonary artery, a finding that can be associated withpulmonary artery hypertension. No pulmonary artery embolus. The visualized thyroid and mediastinum are unremarkable. Mild bibasilar atelectasis. The upper abdomen is unremarkable. The bones are intact. Diffuse idiopathic skeletal hyperostosis of the thoracic spine. IMPRESSION: 1. No pulmonary emboli. 2. Enlarged pulmonary artery, a finding that can be associated with pulmonary artery hypertension. 3. Aneurysmal ascending aorta measuring up to 4.4 cm in diameter. This document has been electronically signed by: Mateo Modi MD on 04/19/2025 22:54:12 us Emmett William LOPEZ IMG CT PROCEDURES Final Result * Respiratory virus panel molecular study (04/19/2025 10:02 PM EDT) Pathologist [facility] Adenovirus Detection by PCR Not Detected Not Detected LAB MICROBIOLOGY METHOD 04/19/2025 11:22 PM EDT [facility] Influenza A PCR Not Detected Not Detected LAB MICROBIOLOGY METHOD 04/19/2025 11:22 PM EDT [facility] Influenza B PCR Not Detected Not Detected LAB MICROBIOLOGY METHOD 04/19/2025 11:22 PM EDT [facility] Coronavirus 229E Not Detected Not Detected LAB MICROBIOLOGY METHOD 04/19/2025 11:22 PM EDT [facility] Coronavirus HKU1 Not Detected Not Detected LAB MICROBIOLOGY METHOD 04/19/2025 11:22 PM EDT [facility] Coronavirus OC43 Not Detected Not Detected LAB MICROBIOLOGY METHOD 04/19/2025 11:22 PM EDT [facility] Coronavirus NL63 Not Detected Not Detected LAB MICROBIOLOGY METHOD 04/19/2025 11:22 PM EDT [facility] Parainfluenza Virus 1 Not Detected Not Detected LAB MICROBIOLOGY METHOD 04/19/2025 11:22 PM EDT [facility] Parainfluenza Virus 2 Not Detected Not Detected LAB MICROBIOLOGY METHOD 04/19/2025 11:22 PM EDT [facility] Parainfluenza Virus 3 Not Detected Not Detected LAB MICROBIOLOGY METHOD 04/19/2025 11:22 PM EDT [facility] Parainfluenza Virus 4 Not Detected Not Detected LAB MICROBIOLOGY METHOD 04/19/2025 11:22 PM EDT [facility] RSV PCR Not Detected Not Detected LAB MICROBIOLOGY METHOD 04/19/2025 11:22 PM EDT [facility] Human Metapneumovirus A and B Not Detected Not Detected LAB MICROBIOLOGY METHOD 04/19/2025 11:22 PM EDT [facility] Rhinovirus/Entero virus Not Detected Not Detected LAB MICROBIOLOGY METHOD 04/19/2025 11:22 PM EDT [facility] Bordetella pertussis Not Detected Not Detected LAB MICROBIOLOGY METHOD 04/19/2025 11:22 PM EDT [facility] Bordetella parapertussis Not Detected Not Detected LAB MICROBIOLOGY METHOD 04/19/2025 11:22 PM EDT [facility] Mycoplasma pneumo by PCR Not Detected Not Detected LAB MICROBIOLOGY METHOD 04/19/2025 11:22 PM EDT [facility] Chlamydia pneumoniae Not Detected Not Detected LAB MICROBIOLOGY METHOD 04/19/2025 11:22 PM EDT [facility] SARS COV-2 Not Detected Not Detected LAB MICROBIOLOGY METHOD 04/19/2025 11:22 PM EDT [facility] Swab Both anterior nares / Unknown Non-blood Collection / Unknown 04/19/2025 10:02 PM EDT 04/19/2025 10:25 PM EDT Narrative [facility] - 04/19/2025 11:22 PM EDT Testing was performed using the [employer] Respiratory Pathogen PCR Assay. All results must be correlated with the clinical findings. Results should not be used as the sole basis for diagnosis. False Negative results may occur from the presence of sequence variants in the region targeted by the assay or the presence of inhibitors. Results may be affected by concurrent antiviral/antimicrobial therapy or levels of organisms that are below the limit of detection. us Emmett Thomas MD LAB MICROBIOLOGY - GENERAL ORDER LUIS ANGEL Final Result [facility] [address] [place] [address], * Troponin I High Sensitivity (04/19/2025 9:05 PM EDT) Only the most recent of3 resultswithin the time period is included. High Sensitivity Troponin I 30 <=79 ng/L LAB CHEMISTRY METHOD 04/19/2025 9:54 PM EDT [facility] Blood Venous blood specimen / Unknown Venipuncture / Unknown 04/19/2025 9:05 PM EDT 04/19/2025 9:22 PM EDT Narrative [facility] - 04/19/2025 9:54 PM EDT High levels of biotin in samples may falsely decrease hsTroponin values. Use caution when interpreting hsTroponin results in patients taking biotin who exhibit renal impairment (eGFR <60) or in patients taking more than 20 mg/day of biotin. us Emmett Thomas MD LAB BLOOD ORDERABLES Final Resul t Performing Organization Address City/[facility]/ZIP Co de Phone Number [facility] [address] [place] [address], [place] [phone] * SST tube (04/19/2025 9:05 PM EDT) Extra Tube Hold for add-ons. 04/19/2025 11:01 PM EDT [facility] Comment:Auto resulted. Blood Venous blood specimen / Unknown Venipuncture / Unknown 04/19/2025 9:05 PM EDT 04/19/2025 9:22 PM EDT us Emmett Thomas MD LAB BLOOD ORDERABLES Final Resul t [facility] [address] [place] [address], [place] [phone] * B-Type Natriuretic Peptide (BNP) (04/19/2025 9:05 PM EDT) Only the most recent of2 resultswithin the time period is included. BNP 78 <=100 pcg/mL LAB CHEMISTRY METHOD 04/19/2025 10:02 PM EDT [facility] Blood Venous blood specimen / Unknown Venipuncture / Unknown 04/19/2025 9:05 PM EDT 04/19/2025 9:22 PM EDT us Emmett Thomas MD LAB BLOOD ORDERABLES Final Resul t Performing Organization Address [facility] Co de Phone Number [facility] [address] [place] [address], [place] [phone] * Lipase (04/19/2025 9:05 PM EDT) Only the most recent of2 resultswithin the time period is included. Lipase 30 13 - 75 unit/L LAB CHEMISTRY METHOD 04/19/2025 10:11 PM EDT [facility] Blood Venous blood specimen / Unknown Venipuncture / Unknown 04/19/2025 9:05 PM EDT 04/19/2025 9:22 PM EDT us Emmett Thomas MD LAB BLOOD ORDERABLES Final Resul t Performing Organization Address [facility] de Phone Number [facility] [address] [place] [address], [place] [phone] * (ABNORMAL) Comprehensive Metabolic Panel (CMP) (04/19/2025 9:05 PM EDT) Only the most recent of2 resultswithin the time period is included. Sodium 141 133 - 145 mmol/L LAB CHEMISTRY METHOD 04/19/2025 10:11 PM EDT [facility] Potassium 3.7 3.5 - 5.5 mmol/L LAB CHEMISTRY METHOD 04/19/2025 10:11 PM EDT [facility] Comment:Hemolysis present Chloride 106 96 - 110 mmol/L LAB CHEMISTRY METHOD 04/19/2025 10:11 PM EDT [facility] CO2 29 21 - 32 mmol/L LAB CHEMISTRY METHOD 04/19/2025 10:11 PM EDT [facility] Anion Gap 6 3 - 11 LAB CHEMISTRY METHOD 04/19/2025 10:11 PM [facility] Glucose 115(H) 70 - 100 mg/dL LAB CHEMISTRY METHOD 04/19/2025 10:11 PM [facility] BUN 21 5 - 25 mg/dL LAB CHEMISTRY METHOD 04/19/2025 10:11 PM [facility] Creatinine 0.88 0.70 - 1.30 mg/dL LAB CHEMISTRY METHOD 04/19/2025 10:11 PM [facility] eGFR 95 >=60 mL/min/1. 73m2 LAB CHEMISTRY METHOD 04/19/2025 10:11 PM [facility] Comment:Calculation based on the Chronic Kidney Disease Epidemiology Collaboration (CKD-EPI) equation refit without adjustment for race. BUN/Creatinine Ratio 23.9 LAB CHEMISTRY METHOD 04/19/2025 10:11 PM [facility] Calcium 8.6 8.5 - 10.5 mg/dL LAB CHEMISTRY METHOD 04/19/2025 10:11 PM [facility] AST (SGOT) 34 10 - 42 unit/L LAB CHEMISTRY METHOD 04/19/2025 10:11 PM [facility] Comment:Hemolysis present ALT (SGPT) 28 10 - 60 unit/L LAB CHEMISTRY METHOD 04/19/2025 10:11 PM [facility] Alkaline Phosphatase 43 42 - 121 unit/L LAB CHEMISTRY METHOD 04/19/2025 10:11 PM [facility] Total Protein 6.3 6.0 - 8.0 g/dL LAB CHEMISTRY METHOD 04/19/2025 10:11 PM [facility] Albumin 3.2 3.2 - 5.0 g/dL LAB CHEMISTRY METHOD 04/19/2025 10:11 PM [facility] Total Bilirubin 0.3 0.0 - 1.4 mg/dL LAB CHEMISTRY METHOD 04/19/2025 10:11 PM EDT [facility] Blood Venous blood specimen / Unknown Venipuncture / Unknown 04/19/2025 9:05 PM EDT 04/19/2025 9:22 PM EDT Emmett Thomas MD LAB BLOOD ORDERABLES Final Resul t [facility] [address] [place] [address], * LEFT HEART CATH (04/18/2025 9:27 AM EDT) Anatomical Region Laterality Modality X-Ray Angiograph y Narrative 04/19/2025 10:24 AM EDT The left main is normal. It branches into the circumflex and LAD. The circumflex gives off a very high small OMB 1. Then a relatively large OMB #2. There are no significant stenoses in these vessels. The circumflex I would call codominant as the true circumflex reaches the inferior wall of the left ventricle. The left anterior descending coronary artery gives off a small first diagonal. A moderate second diagonal and then a larger third diagonal. The vessel reaches the apex. There are no significant stenoses in any of these vessels. The right coronary artery gives off a small PDA and a normal right ventricular branch. There is no significant disease there. Study Details This gentleman has a complex past medical history. He has severe mitral valve regurgitation and is being readied for surgery. He was referred for cardiac catheterization. Cardiac Cath Measurements Pressure measurements: LV pressure = 95/14 mmHg. LVED pressure = 14 mmHg. AO pressure = 100/56 mmHg. Cath Recommendations Recommendations: Proceed with mitral valve surgery.. Clinical Background This is a gentleman with a past history of drug abuse. On methadone. Psychiatric disease. He is here with his sister who helps care for him and make sure that he gets all of his medications. He has developed severe mitral regurgitation documented on transesophageal echo and will need cardiac surgery Procedure Details The patient was brought to the [facility] in a fasting state. I had obtained informed consent from him and his sister in the prep and recovery area. He was placed on the cath table. The area over the right radial artery and the right femoral artery were prepped and draped in the usual sterile manner . Timeout was done. He received a small dose of sedation. 0.5 of Versed and 25 mcg of fentanyl. He remained awake alert and comfortable throughout the procedure. The area over the right radial artery was anesthetized with Xylocaine. The right radial artery was easily cannulated and a 6 Frisian radial artery sheath was advanced aspirated and flushed. He received 2.5 of verapamil through the sheath. A 5 Frisian Gigi catheter was used to cannulate both left and right coronary artery. Coronary injections were done.. I then advanced the catheter over the guidewire into the left ventricle to measure LV pressures. The catheter was removed over the J-wire. The sheath was aspirated and then flushed with another 2.5 of verapamil. I placed a regular TR band on the right wrist. I inflated with 15 cc of air. I let it deflate completely and did not obtain any flash of blood return. So I inflated it with only 5 cc of air. The hand was warm nailbeds pink. No pain. Instructed the team to put the O2 sat monitor on the right thumb more for finger. Tiffany Ortiz NP CV CARDIAC CATH PROCEDURES Audrey nguyen Result * ECG 12 lead - Procedural (No Charge) (04/18/2025 8:22 AM EDT) [facility] Ventricular Rate ECG 48 BPM GEMUSE Atrial Rate 48 BPM GEMUSE P-R Interval 166 ms GEMUSE QRS Duration 106 ms GEMUSE Q-T Interval 472 ms GEMUSE QTc 421 ms GEMUSE P Wave [place] 56 degrees GEMUSE R [place] -4 degrees GEMUSE T [place] 10 degrees GEMUSE ECG Interpretation Poor data quality, interpretation may be adversely affected Sinus bradycardia Moderate voltage criteria for LVH, may be normal variant Borderline ECG When compared with ECG of 05-APR-2025 13:57, No significant change was found Confirmed by VENTURA KEANE ([id number]) on 04/18/2025 9:13:00 PM [facility] 04/18/2025 8:22 AM EDT 04/18/2025 9:13 PM EDT Johnnie Mckinney MD ECG ORDERABLES Final Result [facility] * Pulmonary function testing: Spirometry with Bronchodilator, Carbon Monoxide Diffusing Capacity, Vital Capacity Test, Nitrogen Wash Out (04/14/2025 8:51 AM EDT) Impressions Neha Huizar MD - 04/14/2025 8:51 AM EDT Pulmonary function test interpretation. Spirometry done today reveals FEV1 of 3.18 which is 85% of the predicted value, FVC is 3.89 which is 77% of the predicted value, FEV1 to FVC ratio is 111% of the predicted value, there is no bronchodilator response. Flow volume is consistent with normal pattern. Static lung volumes are within normal limit, there is significant air trapping and diffusion lung capacity is moderately reduced and remained moderately reduced after correction for alveolar volume. This study is consistent with normal spirometry, there is significant air trapping with moderate reduction in diffusion lung capacity for which clinical correlation is recommended. us Vonnie Medina MD PFT ORDERABLES Final Result * XR Chest 2 Views (04/07/2025 11:47 PM EDT) Only the most recent of2 resultswithin the time period is included. Anatomical Region Laterality Modality Body Radiographic Ade ging 04/08/2025 8:30 AM EDT Impressions 04/08/2025 8:31 AM EDT No acute findings. -------- FINAL REPORT -------- Dictated By: Jame Ferreira Dictated Date: 04/08/2025 08:30 ET Assigned Physician: Jame Ferreira Reviewed and Electronically Signed By: Jame Ferreira Signed Date: 04/08/2025 08:31 ET Workstation ID: [id number] Transcribed By: Self Edit Transcribed Date: 04/08/2025 08:30 ET Narrative 04/08/2025 8:31 AM EDT PROCEDURE: PA and lateral radiographs of the chest. HISTORY: chest pain. COMPARISON: 04/05/2025. FINDINGS: There are a few linear bands of scarring or atelectasis at the left base, slightly less dense than on the previous study. Pleural spaces and pulmonary vasculature are normal. Cardiomediastinal contours are normal. Degenerative changes of the spine. Mild atherosclerotic calcifications of the aorta. Procedure Note Jame Ferreira MD - 04/08/2025 PROCEDURE: PA and lateral radiographs of the chest. HISTORY: chest pain. COMPARISON: 04/05/2025. FINDINGS: There are a few linear bands of scarring or atelectasis at the left base,slightly less dense than on the previous study. Pleural spaces andpulmonary vasculature are normal. Cardiomediastinal contours are normal.Degenerative changes of the spine. Mild atherosclerotic calcifications ofthe aorta. IMPRESSION: No acute findings. -------- FINAL REPORT -------- Dictated By: Jame Ferreira Dictated Date: 04/08/2025 08:30 ET Assigned Physician: Jame Ferreira Reviewed and Electronically Signed By: Jame Ferreira Signed Date: 04/08/2025 08:31 ET Workstation ID: [id number] Transcribed By: Self Edit Transcribed Date: 04/08/2025 08:30 ET us Jennifer GALLO IMG XR PROCEDURES Final Result * (ABNORMAL) Venous blood gas (04/07/2025 11:34 PM EDT) pH, Mikey 7.42 7.32 - 7.42 pH 04/08/2025 12:01 AM [facility] pCO2, Mikey 50 41 - 51 mmHg 04/08/2025 12:01 AM [facility] pO2, Mikey 52(H) 25 - 40 mmHg 04/08/2025 12:01 AM [facility] HCO3, Venous 29.8(H) 22.0 - 26.0 mmol/L 04/08/2025 12:01 AM [facility] O2 Sat, Mikey 86.1 % 04/08/2025 12:01 AM [facility] Base Excess, Mikey 6.7(H) -2.0 - 2.0 mmol/L 04/08/2025 12:01 AM EDT [facility] Blood Venous blood specimen / Unknown Venipuncture / Unknown 04/07/2025 11:34 PM EDT 04/07/2025 11:58 PM EDT Joseph Gregg MD LAB BLOOD ORDERABLES Final R esult [facility] ([facility] [address] [place] [address], [place] [phone] * Hepatitis C Screening (11/25/2005) [facility] Hepatitis C Screening abstracted Historical Provider HEALTH MAINTENANCE Final Result from Last 3 Months or Most Recently Relevant to Health Maintenance Insurance MEDICAID - [place] MEDICARE Advance Directives * Full Code - Confirmed (Latest Code Status on File) Date Activated Date Inactivated Comments 04/29/2025 1:07 PM 05/03/2025 6:59 PM This code sta tus was ascertained in the following way: Code status discussion: discussion with patient To update the patient's code status, place a code status order. Do not modify or discontinue any currently active code status orders. * Full Code - Default Date Activated Date Inactivated Comments 04/29/2025 6:03 AM 04/29/2025 1:07 PM This is order is used when code status has not been discussed with the patient, or code status is otherwise unknown/unconfirmed To update the patient's code status, place a code status order. Do not modify or discontinue any currently active code status orders. Care Teams Mechanic General Operational Test Relationship Specialty Start Date End Date Pushpa Alonzo MD [address] [place] [phone] PCP - General Internal Medicine 12/13/24
--- OUTSIDE RECORDS SUMMARY | 2025-07-05 20:00 | XMS_ITS | Clinical Summary ---
Author Organization Unknown Care Team Providers Care Plant Chief Name Role Phone ALFRED LOPEZ, JAMA Unavailable Unavailchristie GARCIA RN, HELDER Unavailable Unavailable Payers Payer Name Policy Type Policy Number Effective Date Expira tion Date [place]IC[place] - [place] [id number] Problems Condition Name Condition Details Condition Category Status Onset Date Resolution Date Last Treatment Date Treating Clinician Comments ENCOUNTER FOR OTHER SPECIFIED SURGICAL AFTERCARE Active 04-29 00:00: 00 Allergies, Adverse Reactions, Alerts Allergy Name Allergy Type Status Severity Reaction(s) Onset Date Inactive Date Treating Clinician Comments MIRTAZAPINE Propensity to adverse reactions Active 05-08 07:53: 10 LYRICA Propensity to adverse reactions Active 05-08 07:53: 17 SUBOXONE Propensity to adverse reactions Active 05-08 07:53: 23 COGENTIN Propensity to adverse reactions Active 05-08 07:53: 35 TIAGABINE Propensity to adverse reactions Active 05-08 07:53: 50 GEODON Propensity to adverse reactions Active 05-08 07:53: 58 LITHIUM Propensity to adverse reactions Active 05-08 07:54: 04 NAFCILLIN Propensity to adverse reactions Active 05-08 07:54: 16 RISPERIDONE Propensity to adverse reactions Active 05-08 07:54: 22 Vital Signs Vital Name Observation Time Observation Value Commen ts Temperature 2025-05-10 12:14:00.000 97.6 [degF] Temperature 2025-05-08 16:18:00.000 97.4 [degF] BMI (%) 2025-05-08 16:18:00.000 26 kg/m2 Height 2025-05-08 16:18:00.000 74 [in_us] Pulse 2025-05-10 12:14:00.000 72 /min Pulse 2025-05-08 16:18:00.000 63 /min O2 Saturation (%) 2025-05-10 12:14:00.000 97 % Respirations 2025-05-10 12:14:00.000 18 /min Respirations 2025-05-08 16:18:00.000 16 /min Weight (lbs) 2025-05-08 16:18:00.000 210 [lb_av] Systolic Blood Pressure 2025-05-10 12:14:00.000 118 mm [Hg] Systolic Blood Pressure 2025-05-08 16:18:00.000 110 mm [Hg] Diastolic Blood Pressure 2025-05-10 12:14:00.000 62 mm [Hg] Diastolic Blood Pressure 2025-05-08 16:18:00.000 64 mm [Hg] Plan of Treatment Planned Activity Planned Date Details Comments Future Scheduled Test SKILLED NU RSE TO EVALUATE PATIENT, IDENTIFY PRIMARY AND CO-MORBID CONDITIONS CODED PER CODING GUIDELINES, AND DEVELOP PATIENT SPECIFIC PLAN OF CARE THAT INCLUDES PATIENT GOAL FOR HOME HEALTH. [code = SKILLED NURSE TO EVALUATE PATIENT, IDENTIFY PRIMARY AND CO-MORBID CONDITIONS CODED PER CODING GUIDELINES, AND DEVELOP PATIENT SPECIFIC PLAN OF CARE THAT INCLUDES PATIENT GOAL FOR HOME HEALTH.] Future Scheduled Test SKILLED NU RSE TO REVIEW PATIENT MEDICATIONS (PRESCRIPTION/OTC). INSTRUCT PATIENT/CAREGIVER ON ALL MEDICATIONS INCLUDING PURPOSE, WHEN TO TAKE, IMPORTANCE OF MEDICATION ADHERENCE, MONITORING OF EFFECTIVENESS, ADVERSE DRUG REACTIONS, POSSIBLE SIDE EFFECTS, AND WHEN TO NOTIFY AGENCY OR PHYSICIAN/PROVIDER OF ANY CONCERNS. [code = SKILLED NURSE TO REVIEW PATIENT MEDICATIONS (PRESCRIPTION/OTC). INSTRUCT PATIENT/CAREGIVER ON ALL MEDICATIONS INCLUDING PURPOSE, WHEN TO TAKE, IMPORTANCE OF MEDICATION ADHERENCE, MONITORING OF EFFECTIVENESS, ADVERSE DRUG REACTIONS, POSSIBLE SIDE EFFECTS, AND WHEN TO NOTIFY AGENCY OR PHYSICIAN/PROVIDER OF ANY CONCERNS.] Future Scheduled Test PATIENT MURPHY S A RISK OF HOSPITALIZATION AND ED USE. SKILLED NURSE TO ESTABLISH SUPPORT MEASURES TO MINIMIZE RISK OF HOSPITALIZATION AND ED USE, AND INSTRUCT PATIENT/CAREGIVER ON METHODS TO REDUCE AVOIDABLE HOSPITALIZATION AND ED USE. [code = PATIENT HAS A RISK OF HOSPITALIZATION AND ED USE. SKILLED NURSE TO ESTABLISH SUPPORT MEASURES TO MINIMIZE RISK OF HOSPITALIZATION AND ED USE, AND INSTRUCT PATIENT/CAREGIVER ON METHODS TO REDUCE AVOIDABLE HOSPITALIZATION AND ED USE.] Future Scheduled Test SKILLED NU RSE TO PROVIDE INSTRUCTION TO PATIENT/CAREGIVER RELATED TO DISCHARGE PLANNING. [code = SKILLED NURSE TO PROVIDE INSTRUCTION TO PATIENT/CAREGIVER RELATED TO DISCHARGE PLANNING.] Future Scheduled Test SKILLED NU RSE TO PERFORM ENVIRONMENTAL SAFETY RISK ASSESSMENT AND FALL RISK ASSESSMENT AND PROVIDE INSTRUCTION TO IMPLEMENT ENVIRONMENTAL SAFETY AND FALL PREVENTION STRATEGIES THROUGHOUT THE CERTIFICATION PERIOD. SKILLED NURSE WILL MAINTAIN SITUATIONAL AWARENESS AND WILL NOTIFY CLINICAL DAIRY TESTER AND PHYSICIAN/PROVIDER WITH ANY CHANGE IN CONDITION. [code = SKILLED NURSE TO PERFORM ENVIRONMENTAL SAFETY RISK ASSESSMENT AND FALL RISK ASSESSMENT AND PROVIDE INSTRUCTION TO IMPLEMENT ENVIRONMENTAL SAFETY AND FALL PREVENTION STRATEGIES THROUGHOUT THE CERTIFICATION PERIOD. SKILLED NURSE WILL MAINTAIN SITUATIONAL AWARENESS AND WILL NOTIFY CLINICAL DAIRY TESTER AND PHYSICIAN/PROVIDER WITH ANY CHANGE IN CONDITION.] Future Scheduled Test SKILLED NU RSE FOR OBSERVATION AND ASSESSMENT OF PATIENTS PAIN LEVEL AND EFFECTIVENESS OF PAIN MANAGEMENT REGIMEN. SKILLED NURSE TO INSTRUCT PATIENT/CAREGIVER REGARDING PHARMACOLOGIC AND NON-PHARMACOLOGIC PAIN CONTROL MEASURES. SKILLED NURSE TO REPORT TO PHYSICIAN IF PAIN LEVEL IS OUTSIDE OF ESTABLISHED PARAMETERS. [code = SKILLED NURSE FOR OBSERVATION AND ASSESSMENT OF PATIENTS PAIN LEVEL AND EFFECTIVENESS OF PAIN MANAGEMENT REGIMEN. SKILLED NURSE TO INSTRUCT PATIENT/CAREGIVER REGARDING PHARMACOLOGIC AND NON-PHARMACOLOGIC PAIN CONTROL MEASURES. SKILLED NURSE TO REPORT TO PHYSICIAN IF PAIN LEVEL IS OUTSIDE OF ESTABLISHED PARAMETERS.] Future Scheduled Test SKILLED NU RSE TO ASSESS PATIENT'S SKIN INTEGRITY AND INSTRUCT PATIENT/CAREGIVER ON MEASURES TO PREVENT PRESSURE ULCERS. [code = SKILLED NURSE TO ASSESS PATIENT'S SKIN INTEGRITY AND INSTRUCT PATIENT/CAREGIVER ON MEASURES TO PREVENT PRESSURE ULCERS.] Future Scheduled Test SKILLED NU RSE TO ASSESS ANXIETY AND PROVIDE ASSISTANCE TO PATIENT FOR UNDERSTANDING AND MANAGEMENT OF FEELINGS. [code = SKILLED NURSE TO ASSESS ANXIETY AND PROVIDE ASSISTANCE TO PATIENT FOR UNDERSTANDING AND MANAGEMENT OF FEELINGS.] Future Scheduled Test SKILLED NU RSE TO PROVIDE ASSESSMENT AND TEACHING/REINFORCEMENT OF MANAGEMENT OF DEPRESSION INCLUDING DISEASE PROCESS, MEDICATION MANAGEMENT, COPING SKILLS AND IDENTIFY CHANGES ASSOCIATED WITH DEPRESSIVE DISORDERS FOR EARLY INTERVENTION. [code = SKILLED NURSE TO PROVIDE ASSESSMENT AND TEACHING/REINFORCEMENT OF MANAGEMENT OF DEPRESSION INCLUDING DISEASE PROCESS, MEDICATION MANAGEMENT, COPING SKILLS AND IDENTIFY CHANGES ASSOCIATED WITH DEPRESSIVE DISORDERS FOR EARLY INTERVENTION.] Future Scheduled Test SKILLED NU RSE TO ASSESS PATIENTS PSYCHOSOCIAL STATUS TO IDENTIFY POTENTIAL ISSUES THAT MAY COMPLICATE THE PROVISION OF THE PLAN OF CARE INCLUDING THE PATIENTS ABILITY TO ACCESS COMMUNITY RESOURCES AND PSYCHOSOCIAL SUPPORT SERVICES. [code = SKILLED NURSE TO ASSESS PATIENTS PSYCHOSOCIAL STATUS TO IDENTIFY POTENTIAL ISSUES THAT MAY COMPLICATE THE PROVISION OF THE PLAN OF CARE INCLUDING THE PATIENTS ABILITY TO ACCESS COMMUNITY RESOURCES AND PSYCHOSOCIAL SUPPORT SERVICES.] Future Scheduled Test SKILLED NU RSE TO ASSESS HIGH SAFETY RISK PATIENT FOR CHANGE IN CONDITION: MOOD/BEHAVIOR, MISSED MEDICATIONS, CHANGE IN LIVING SITUATION, HOMICIDAL IDEATION, ACTIVE SUBSTANCE USE WITH MOOD ALTERING SUBSTANCES INCLUDING BUT NOT LIMITED TO COCAINE, CRACK, HEROIN, FENTANYL AND ENSURE EARLY IDENTIFICATION TO MAINTAIN SAFETY. SKILLED NURSE WILL MAINTAIN SITUATIONAL AWARENESS FOR SAFETY AND WILL NOTIFY CLINICAL DAIRY TESTER AND PHYSICIAN/PROVIDER WITH ANY CHANGE IN CONDITION. [code = SKILLED NURSE TO ASSESS HIGH SAFETY RISK PATIENT FOR CHANGE IN CONDITION: MOOD/BEHAVIOR, MISSED MEDICATIONS, CHANGE IN LIVING SITUATION, HOMICIDAL IDEATION, ACTIVE SUBSTANCE USE WITH MOOD ALTERING SUBSTANCES INCLUDING BUT NOT LIMITED TO COCAINE, CRACK, HEROIN, FENTANYL AND ENSURE EARLY IDENTIFICATION TO MAINTAIN SAFETY. SKILLED NURSE WILL MAINTAIN SITUATIONAL AWARENESS FOR SAFETY AND WILL NOTIFY CLINICAL DAIRY TESTER AND PHYSICIAN/PROVIDER WITH ANY CHANGE IN CONDITION.] Future Scheduled Test SKILLED NU RSE FOR O/A OF RESPIRATORY SYSTEM TO IDENTIFY CHANGES ASSOCIATED WITH EXACERBATION AND TO PROVIDE SKILLED TEACHING ON MANAGEMENT OF ASTHMA RESPIRATORY DISEASE PROCESS. [code = SKILLED NURSE FOR O/A OF RESPIRATORY SYSTEM TO IDENTIFY CHANGES ASSOCIATED WITH EXACERBATION AND TO PROVIDE SKILLED TEACHING ON MANAGEMENT OF ASTHMA RESPIRATORY DISEASE PROCESS.] Future Scheduled Test NEED FOR S KILLED TEACHING AND INTERVENTION RELATED TO STG 2 PU L GREAT TOE SKILLED NURSE OR TRAINED PATIENT/CAREGIVER TO PERFORM WOUND CARE USING CLEAN TECHNIQUE, CLEANSE/IRRIGATE WITH NS. PAT DRY WITH GAUZE. APPLY IODOSORB TO WOUND BED, COVER WITH GAUZE SECURE WITH TAPE. WOUND CARE TO BE PERFORMED DAILY AND PRN IF SOILED OR DISLODGED. 1-2 PRN SKILLED NURSE VISITS FOR WOUND CARE DUE TO COMPLICATIONS. SKILLED NURSE TO OBTAIN WOUND CULTURE PRN S/S OF INFECTION. MONITOR EPITHELIALIZEC STERNAL AND EPIGASTRIC INCISIONS FOR HEALING AND INFECTION WOUND CARE WILL BE PERFORMED BY TRAINED CAREGIVER ON DAYS WHEN SKILLED NURSE IS NOT SCHEDULED FOR A VISIT. DISCONTINUE WOUND CARE/SUPPLIES ONCE WOUND IS HEALED. [code = NEED FOR SKILLED TEACHING AND INTERVENTION RELATED TO STG 2 PU L GREAT TOE SKILLED NURSE OR TRAINED PATIENT/CAREGIVER TO PERFORM WOUND CARE USING CLEAN TECHNIQUE, CLEANSE/IRRIGATE WITH NS. PAT DRY WITH GAUZE. APPLY IODOSORB TO WOUND BED, COVER WITH GAUZE SECURE WITH TAPE. WOUND CARE TO BE PERFORMED DAILY AND PRN IF SOILED OR DISLODGED. 1-2 PRN SKILLED NURSE VISITS FOR WOUND CARE DUE TO COMPLICATIONS. SKILLED NURSE TO OBTAIN WOUND CULTURE PRN S/S OF INFECTION. MONITOR EPITHELIALIZEC STERNAL AND EPIGASTRIC INCISIONS FOR HEALING AND INFECTION WOUND CARE WILL BE PERFORMED BY TRAINED CAREGIVER ON DAYS WHEN SKILLED NURSE IS NOT SCHEDULED FOR A VISIT. DISCONTINUE WOUND CARE/SUPPLIES ONCE WOUND IS HEALED.] Future Scheduled Test SKILLED NU RSE FOR O/A AND SKILLED TEACHING RELATED TO SIGNS AND SYMPTOMS AND MANAGEMENT OF MG [code = SKILLED NURSE FOR O/A AND SKILLED TEACHING RELATED TO SIGNS AND SYMPTOMS AND MANAGEMENT OF MG] Future Scheduled Test SKILLED NU RSE FOR O/A, TEACHING RELATED TO HEP C, CIRRHOSIS FOR EARLY IDENTIFICATION OF EXACERBATION OF DISEASE PROCESS. [code = SKILLED NURSE FOR O/A, TEACHING RELATED TO HEP C, CIRRHOSIS FOR EARLY IDENTIFICATION OF EXACERBATION OF DISEASE PROCESS.] Future Scheduled Test SKILLED NU RSE FOR O/A AND SKILLED TEACHING IN MANAGEMENT OF HX PE CIRCULATORY/VASCULAR DISEASE. [code = SKILLED NURSE FOR O/A AND SKILLED TEACHING IN MANAGEMENT OF HX PE CIRCULATORY/VASCULAR DISEASE.] Future Scheduled Test SKILLED NU RSE FOR O/A AND TEACHING OF ENDOCRINE SYSTEM TO IDENTIFY CHANGES ASSOCIATED WITH EXACERBATION OF HYPOTHYROID FOR EARLY INTERVENTION OF COMPLICATIONS. [code = SKILLED NURSE FOR O/A AND TEACHING OF ENDOCRINE SYSTEM TO IDENTIFY CHANGES ASSOCIATED WITH EXACERBATION OF HYPOTHYROID FOR EARLY INTERVENTION OF COMPLICATIONS.] Future Scheduled Test PHYSICAL T HERAPIST TO EVALUATE PATIENT FOR ENDURANCE, MG [code = PHYSICAL THERAPIST TO EVALUATE PATIENT FOR ENDURANCE, MG] Future Scheduled Test OCCUPATION AL THERAPIST TO EVALUATE PATIENT FOR ADLS [code = OCCUPATIONAL THERAPIST TO EVALUATE PATIENT FOR ADLS] Goal Patient Goal - CARDIAC REHAB IN 2 MONTHS Goal Provider Goal - A PLAN OF CARE WILL BE ESTABLISHED THAT MEETS PATIENT'S CUSTODIAL NEEDS AND INCLUDES PATIENT GOAL FOR HOME HEALTH. Goal Provider Goal - PATIENT/CAREGIVER WILL VERBALIZE UNDERSTANDING OF EDUCATION PROVIDED ON MEDICATIONS BY THE END OF THE CERTIFICATION PERIOD. Goal Provider Goal - PATIENT WILL HAVE SUPPORT MEASURES ESTABLISHED TO PREVENT HOSPITALIZATION AND ED USE AND PATIENT/CAREGIVER WILL VERBALIZE/DEMONSTRATE METHODS TO REDUCE AVOIDABLE HOSPITALIZATION AND ED USE BY END OF EPISODE. Goal Provider Goal - PATIENT/CAREGIVER WILL VERBALIZE UNDERSTANDING OF DISCHARGE PLANNING INSTRUCTIONS BY DATE OF DISCHARGE. Goal Provider Goal - PATIENT/CAREGIVER WILL VERBALIZE/DEMONSTRATE EFFECTIVE ENVIRONMENTAL SAFETY AND FALL PREVENTION STRATEGIES, WILL REMAIN SAFE IN THE COMMUNITY, AND WILL BE FREE OF DANGER TO SELF AND OTHERS THROUGHOUT THE CERTIFICATION PERIOD. Goal Provider Goal - PATIENT/CAREGIVER WILL DEMONSTRATE UNDERSTANDING OF PHARMACOLOGIC AND NONPHARMACOLOGIC PAIN CONTROL MEASURES AND PATIENT WILL HAVE IMPROVEMENT IN PAIN INTERFERING WITH ACTIVITY EVIDENCED BY PAIN AT A LEVEL THAT IS ACCEPTABLE TO THE PATIENT AND PAIN LEVEL WITHIN ESTABLISHED PARAMETERS BY END OF CERTIFICATION PERIOD. Goal Provider Goal - PATIENT/CAREGIVER WILL VERBALIZE UNDERSTANDING OF PRESSURE ULCER PREVENTION BY END OF THE EPISODE. Goal Provider Goal - SYMPTOMS OF ANXIETY ARE IDENTIFIED AND INTERVENTIONS INITIATED TO ENABLE PATIENT TO UNDERSTAND AND MANAGE FEELINGS THROUGHOUT EPISODE. Goal Provider Goal - PATIENT/CAREGIVER WILL VERBALIZE/DEMONSTRATE UNDERSTANDING OF THE MANAGEMENT OF DEPRESSION THROUGHOUT THE CERTIFICATION PERIOD AND SYMPTOMS ARE IDENTIFIED AND MANAGED TO MAINTAIN PATIENT SAFETY IN THE HOME. Goal Provider Goal - CHANGES IN PSYCHOSOCIAL STATUS WILL BE IDENTIFIED AND PLAN IMPLEMENTED TO MINIMIZE PATIENT RISKS THROUGHOUT THE CERTIFICATION PERIOD. Goal Provider Goal - HIGH SAFETY RISK PATIENT WILL REMAIN SAFE IN THE COMMUNITY AND WILL BE FREE FROM DANGER TO SELF AND OTHERS THROUGHOUT CERTIFICATION PERIOD. Goal Provider Goal - PATIENT/CAREGIVER WILL VERBALIZE/DEMONSTRATE MANAGEMENT OF RESPIRATORY DISEASE PROCESS. CHANGES IN RESPIRATORY STATUS WILL BE IDENTIFIED AND REPORTED TO PHYSICIAN FOR PROMPT INTERVENTION THROUGHOUT THE CERTIFICATION PERIOD. Goal Provider Goal - WOUND CARE WILL BE COMPLETED AND PATIENT WILL HAVE IMPROVED WOUND STATUS EVIDENCED BY NO SIGNS AND SYMPTOMS OF INFECTION, DECREASED WOUND SIZE, AND/OR NO COMPLICATIONS BY THE END OF THE CERTIFICATION PERIOD. Goal Provider Goal - PATIENT/CAREGIVER WILL VERBALIZE UNDERSTANDING OF MUSCULOSKELETAL DISEASE INCLUDING SIGNS AND SYMPTOMS, MANAGEMENT, AND PRESCRIBED TREATMENT REGIMEN BY END OF EPISODE. Goal Provider Goal - EXACERBATIONS OF LIVER/PANCREATIC DISEASE WILL BE PROMPTLY IDENTIFIED AND INTERVENTIONS IMPLEMENTED TO MINIZMIZE RISKS TO PATIENT BY END OF THE EPISODE. Goal Provider Goal - PATIENT/CAREGIVER WILL VERBALIZE/DEMONSTRATE THE ABILITY TO MANAGE CIRCULATORY DISEASE PROCESS AND EXACERBATIONS WILL BE IDENTIFIED FOR EARLY INTERVENTION THROUGHOUT THE CERTIFICATION PERIOD. Goal Provider Goal - PATIENT/CAREGIVER WILL VERBALIZE SIGNS AND SYMPTOMS OF EXACERBATION TO REPORT TO NURSE/PHYSICIAN THROUGHOUT THE CERTIFICATION PERIOD. Goal Provider Goal - A PHYSICAL THERAPY EVALUATION TO BE COMPLETED WITH RECOMMENDATIONS AND/OR WRITTEN PLAN OF TREATMENT ESTABLISHED FOR PHYSICIANS SIGNATURE. Goal Provider Goal - OCCUPATIONAL THERAPY EVALUATION TO BE COMPLETED WITH RECOMMENDATIONS AND WRITTEN PLAN OF TREATMENT ESTABLISHED FOR THE PHYSICIANS SIGNATURE. Progress Notes Progress Notes <paragraph>[Visit Date: 2024 by JUJU PEOPLES PT]:</paragraph><paragraph>PATIENT WAS SEEN FOR INITIAL PHYSICAL THERAPY VISIT AND HOME SAFETY ASSESSMENT. PATIENT IS A 68-YEAR-OLD MALE WHO RECENTLY UNDERWENT A MITRAL VALVE PROLAPSE REPAIR 04/30/25. PLOF LIVES WITH HIS SISTER IN [facility] HOME, CLUTTERED, AMB WITH CANE INTERMITTENTLY IN HOME AND IN COMMUNITY ALL TIMES. 3 STEPS TO EXIT WITH RAIL PMH MYASTHENA GRAVIS, HTN, HYPOTHYROID, SCHIZOPHRENIFORM DISORDER, ASTHMA, DEPRESSION, PE, HEP C AND CIRRHOSIS. PRESENTLY PATIENT IS AMBULATING NO DEVICE IN HOME SHORT DISTANCES WITH FORWARD HEAD AND TRUNK. PATIENT WAS INSTRUCTED TO USE CANE FOR STABILITY AND TO NEGOTIATE THROUGH CLUTTER FOR FALL PREVENTION. CANE WAS ASSESSED AND HEIGHT. PATIENT HAS 4 STAIRS TO NEGOTIATE TO EXIT HOME WITH RAIL WHICH HE WAS ABLE TO DO WITH SUPERVISION. PATIENT UNSTEADY INITIALLY WITH TRANSFERS [id number] FROM A RECLINER CHAIR THAT IS LOW. RECOMMENDED ADDING PILLOWS SO THAT THE PATIENT IS ABLE TO GET UP EASIER BUT PT DECLINED. REVIEWED PRECAUTIONS FOR CARDIAC CARE AND REEDUCATED ON USE OF CARDIAC PILLOW AND PRECAUTIONS. PATIENT STATES THAT HE SLEEPS IN HIS RECLINER CHAIR. EDUCATED TO SLEEP IN BED TO ELONGATE INCISION HE IS FORWARD FLEXED. PATIENT STATES THAT HE PREFERS NOT TO GO INTO HIS BEDROOM. IDENTIFIED A RECLINER CHAIR THAT ELONGATES MORE THAN HIS EXISTING CHAIR TO ATTEMPT TO ACCOMMODATE STRETCH OF THE CHEST WALL. PATIENT STATES THAT HE IS ABLE TO GET DRESSED AND UNDRESSED BY HIMSELF BUT APPEARS UNSTEADY AND SISTER STATES HE NEEDS SOME ASSISTANCE. TUG SCORE AND 30 SEC SIT TO STAND INDICATE PT IS A FALL RISK. PATIENT INSTRUCTED IN HOME EXERCISE PROGRAM CONSISTING OF SEATED LEG EXERCISES FOR STRENGTHENING AND BALANCE. WRITTEN PROGRAM PROVIDED. PATIENT IS INSTRUCTED TO GET UP EARLYPATIENT IS INSTRUCTED TO GET UP HOURLY WITH USE OF CANE TO AVOID BLOOD CLOTS AND FOR STRENGTHENING AND ENDURANCE. PT HAS A WOUND ON LEFT GREAT TOE WHICH IS BEING ADDRESSED BY NURSING. ENCOURAGED PATIENT TO FLEX AND EXTEND FLEX TO IMPROVE CIRCULATION PT IS AN APPROPRIATE CANDIDATE FOR SKILLED PHYSICAL THERAPY TO ADDRESS PHYSICAL IMPAIRMENTS AND FUNCTIONAL LIMITATIONS. PATIENT VERBALIZED AGREEMENT WITH PLAN OF CARE. MD NOTIFIED. CARDIAC OUTPATIENT STARTS WITHIN 3 WEEKS. PT AND SISTER NSTRUCTED TO SCHEDULE START DATE</paragraph> <paragraph>[Visit Date: 2024 by VAIBHAV LUNSFORD RN]:</paragraph><paragraph>SOC 05/08/25 THE PATIENT IS RECEIVING [facility] CARE DUE TO: MITRAL VALVE PROLAPSE REPAIR 04/30/25. PMH MYASTHENA GRAVIS, HTN, HYPOTHYROID, SCHIZOPHRENIFORM DISORDER, ASTHMA, DEPRESSION, PE, HEP C AND CIRRHOSIS RECENT INPATIENT ADMISSION RELATED TO: SURGERY NEW/CHANGED MEDICATIONS: LOSARTAN OMITTED FROM DC LIST, SISTER WHO IS PRESENT FOR EVAL BELIEVES THIS WAS A MISTAKE, INSTRUCTED TO FOLLOW DC LIST AND WILL FOLLOW UP WITH PCP TOMORROW WHEN OPEN. STARTED PROTONIX, MUCINEX, ASPIRIN, SENNA. PATIENT LIVING SITUATION/CG STATUS: SISTER AN HER . SIGLE FAMILY HOME RECENT FALLS: FELL AND BROKE NOSE LAST YEAR. HAS SHOWER CHAIR AND GRAB BARS SUMMARIZE SKILLED NEED: CHRONIC DISEASE MANAGEMENT, EDUCATE AND ASSESS, MED ED, HOME SAFETY AND FALL PREVENTION, NUTRITION AND HYDRATION, SKIN INTEGRITY AND PRESSURE INJURY PREVENTION, INCISION ASSESS, WOUND CARE ADDITIONAL DISCIPLINES NEEDED: PT FOR ENDURANCE, OT FOR ADLS MD COMMUNICATION: PCP RE SOC AND LOSARTAN UPCOMING APPTS: SURGEON SEP 4, PULM SEP 5 PAYOR SOURCE: MEDICARE ABNORMAL VS: ALL WNL ABNORMAL PHYSICAL ASSESSMENT FINDINGS: POOR HISTORIAN, APPEARS SOMEWHAT COGNITIVELY IMPAIRED AEB NODDING OFF TO SLEEP, DELAYED SLEECH, POSSIBLY FROM PSYCH MEDS. SISTER IS PRIMARY CG AND DOES MEDS, WOUND CARE. REPORTS GENERALIZED ANXIETY DAILY, DENIES DEPRESSION, INSOMNIA, AVH. DENIES PAIN AT THIS TIME BUT 15.5CM STERNAL INCISION (GLUE, CLOSED, NO DRAINAGE OR SS INFECTION) HURTS SOMETIMES. SOB AT REST LS CLEAR. NO COUGH. SISTER REPORTS SOB HAS IMPROVED SINCE DC 05/03/25. INSTRUCTED TO OBTAIN INCENTIVE SPIROMETER, WAS HELPING IN HOSPITAL. SISTER FEELS DC WAS RUSHED.HAS FOUR EPITHELIALIZED HORIZONTAL INCISIONS CONSISTENT WITH CHEST TUBE SITES, 2 ARE STITCHED WITH ONE SUTURE EACH, OTHERS HEALING WELL, MAXIMUM 2CM IN LENGTH. INSTRUCTED TO MONITOR FOR INFECTION. HOUSE HAS NO SERVICE, UNABLE TO USE WATTS. PATIENT REPORTS NEEDING HELP FROM SISTER WITH SHOES BUT DOES OTHER DRESSING AND BATHING HIMSELF, CG VERBALIZES UNDERSTANDING TO SUPERVISE DUE TO POOR ENDURANCE AND SOB. HAS STG 2 PRESSURE ULCER L GREAT TOE, 1X.5CM, NEARLY HEALED, SISTER PROVIDES DAILY CARE, TOLERATES CARE FROM CHIEF CUSTOMER OFFICER WELL. R FOOT INTACT. LBM YESTERDAY NO ISSUES . GAIT SOMEWHAT UNSTEADY NO AD O/A: AOX3. DENIES CP PALPITATIONS AND DIZZINESS ABD SNT DENIES NVD DENIES DYSURIA NO EDEMA OR NEUROPATHY , POSITIVE PEDAL PULSES EDUCATION: CG VERBALIZES UNDERSTANDING RE WOUND CARE, FALL PREVENTION, MED REVIEW, STERNAL PRECAUTIONS, OFFLOADING, CARDIAC DIET INTERVENTIONS NEEDED AT NEXT VISIT: ASSESS ANTICIPATED D/C PLAN: PATIENT/CG AGREES WITH POC, EMERGENCY PREP PLAN IN PLACE, DC TO CARE OF FAMILY WHEN GOALS ARE MET PATIENT/CG INSTRUCTED TO CALL [facility] 14/04 WITH QUESTIONS AND/OR CHANGE IN CONDITION, VERBALIZES UNDERSTANDING</paragraph> Encounters Start Date/Time End Date/Time Encounter Type Admission Type Attending [facility] Department Encounter ID Discharge Date Discharge Status Discharge Condition Discharge Reason Percent Goals Met 2025-05-08 00:00:00 2025-07-06 00:00:00 Outpatient NEW ADMISSION HELDER GARCIA [facility] [id number] 0.00
== END 2025-05-12 14:29 | disposition home or self-care (01) ==
LOC: HO.US 14:28
PROVIDERS: PCP Internal Medicine; Visit Provider Surgery Vascular Surgery
DX: I73.9 Peripheral vascular disease, unspecified (principal)
CPT/HCPCS: 93923; 93925

== ENCOUNTER → 2025-05-12 14:31 | Outpatient (BNV) | payer MEDICARE, MEDICAID, SELFPAY | PROVIDERS: PCP Internal Medicine; Visit Provider Radiology Diagnostic Radiology | DX: I73.9 Peripheral vascular disease, unspecified (principal); I72.4 Aneurysm of artery of lower extremity | CPT/HCPCS: 93923; 93925 ==